=== PATIENT | female | born 1950 | race Caucasian/White ===

== ENCOUNTER → 2016-10-09 | Outpatient (CLI) | payer MEDICARE ==
[~2016-10-09] MED LIST: /ONDA4TA PO; ASPI32ECTA PO; ASPI81TA60 PO; ASPIRIN PO; CARVEDILOL; CARVEDILOL PO; CRES20TA PO; CRESTOR PO; ELIQ5TAB PO; FURO40TA2 PO; FUROSIMIDE PO; GLIM2TAB PO; GLIM4TAB PO; INSULANT SC; LANTUS INSULIN INJ; LISI-542 PO; LISIPOW PO; MAPA325T2 PO; NITR4TASL SL; NITRO STAT PO; OMEP40CA2 PO; ONDA4INJ48 IV; PLAVIX PO; SYNT125T PO; SYNTHROID PO; TYLE325T5 PO; VITA50003 PO
[2016-10-09 12:40] LABS: ALBUMIN 3.6 GM/DL (3.2-5.2); ANION GAP 10 MEQ/L (8-16); BLOOD UREA NITROGEN 20 MG/DL (7-18); CALCIUM LEVEL 9.6 MG/DL (8.8-10.2); CARBON DIOXIDE LEVEL 26 MEQ/L (21-32); CHLORIDE LEVEL 100 MEQ/L (98-107); CREATININE FOR GFR 0.78 MG/DL (0.55-1.02); GLOMERULAR FILTRATION RATE > 60.0 (>45); GLUCOSE, FASTING 274 MG/DL (80-110); PHOSPHORUS LEVEL 3.3 MG/DL (2.5-4.9); SODIUM LEVEL 136 MEQ/L (136-145)
[2016-10-09 12:48] LABS: POTASSIUM SERUM 5.2 MEQ/L (3.5-5.1)
== END | disposition home or self-care (01) ==
LOC: M LAB 11:08
PROVIDERS: ATTEND Internal Medicine Cardiovascular Disease
DX: I49.3 Ventricular premature depolarization (principal)

== ENCOUNTER → 2016-11-09 | Outpatient (REF) | payer MEDICARE ==
[2016-11-09 12:59] LABS: ALBUMIN 3.7 GM/DL (3.2-5.2); ALBUMIN/GLOBULIN RATIO 1.06 (1.00-1.93); BILIRUBIN,DIRECT 0.1 MG/DL (0.0-0.2); BILIRUBIN,TOTAL 0.6 MG/DL (0.2-1.0); TOTAL PROTEIN 7.2 GM/DL (6.4-8.2)
== END ==
LOC: M LABDRAWC 11:57
PROVIDERS: ATTEND Internal Medicine Cardiovascular Disease
DX: I49.3 Ventricular premature depolarization (principal); I25.10 Atherosclerotic heart disease of native coronary artery without angina pectoris

== ENCOUNTER → 2016-12-25 | Outpatient (REF) | payer MEDICARE | LOC: M SFHCCLAY 11:16 | PROVIDERS: ATTEND Family Medicine | DX: E11.9 Type 2 diabetes mellitus without complications (principal) | CPT/HCPCS: 83036; G0463 ==

== ENCOUNTER → 2017-06-28 | Outpatient (REF) | payer MEDICARE ==
[~2017-06-28] MED LIST changes: +AMMO12CR4 TOP; +ASPI325T24 PO; -ASPI32ECTA PO; +ASPI81CH PO; +ATOR80TA59 PO; +CEPH500C PO; +FLON1SPR; +INSULADS INJ; +MACR100C43 PO; +SYNT88TA2 PO; +TRAM50TA2 PO; +VITA1CAP40 PO; -VITA50003 PO
== END ==
LOC: M SFHCCLAY 11:07
PROVIDERS: ATTEND Family Medicine
DX: E11.65 Type 2 diabetes mellitus with hyperglycemia (principal); R30.0 Dysuria; E55.9 Vitamin D deficiency, unspecified
CPT/HCPCS: 81001; 82043; 82306; 83036; 87088; 87186; G0463

== ENCOUNTER 2017-07-05 14:35 | Inpatient (IN) | payer MEDICARE ==
[~2017-07-05] VITALS: Ht 154.9 cm; Wt 94.4 kg
[~2017-07-05 14:35] MED LIST changes: -AMMO12CR4 TOP; -ASPI81CH PO; -ATOR80TA59 PO; -CEPH500C PO; -FLON1SPR; -INSULADS INJ; -MACR100C43 PO; -SYNT88TA2 PO; -TRAM50TA2 PO
[2017-07-05] MEDS ORDERED: MACR100C43 PO ×2 (14:47→21:05)
[2017-07-05] MEDS ORDERED: PANTOPRAZOLE 40MG INJ (PROTONIX) (C9113) IV ONE (16:00)
[2017-07-05] MEDS ORDERED: NS 1,000 ML IV ONE (16:00)
--- NOTE | 2017-07-05 16:46 | REP ---
Clinical: Chest pain . Comparison: 02/24/2016 . Technique: PA and lateral. Findings: The mediastinum and cardiac silhouette are stable. Coronary stents unchanged. The lung rodriguez are clear and without acute consolidation, effusion, or pneumothorax. The skeletal structures are intact and normal. Impression: 1. No acute cardiopulmonary process. Signed by Jesu Guardado MD 07/05/2017 04:38 P
[2017-07-05 16:52] LABS: INR 0.98
[2017-07-05 17:01] LABS: ALBUMIN 3.6 GM/DL (3.2-5.2); ALT/SGPT 18 U/L (12-78); ANION GAP 8 MEQ/L (8-16); AST/SGOT 11 U/L (7-37); BILIRUBIN,DIRECT 0.3 MG/DL (0.0-0.2); BLOOD UREA NITROGEN 21 MG/DL (7-18); CALCIUM LEVEL 9.1 MG/DL (8.8-10.2); CARBON DIOXIDE LEVEL 30 MEQ/L (21-32); CHLORIDE LEVEL 92 MEQ/L (98-107); CREATININE FOR GFR 1.04 MG/DL (0.55-1.02); GLOMERULAR FILTRATION RATE 56.8 (>45); GLUCOSE, FASTING 273 MG/DL (80-110); POTASSIUM SERUM 3.9 MEQ/L (3.5-5.1); SODIUM LEVEL 130 MEQ/L (136-145)
[2017-07-05 17:07] LABS: ALBUMIN/GLOBULIN RATIO 0.97 (1.00-1.93); ALKALINE PHOSPHATASE 94 U/L (45-117); BILIRUBIN,TOTAL 0.9 MG/DL (0.2-1.0); TOTAL PROTEIN 7.3 GM/DL (6.4-8.2)
[2017-07-05 17:32] LABS: BASO # 0.1 10^3/uL (0.0-0.2); BASO % 0.6 % (0.0-1.0); EOS # 0.3 10^3/uL (0.0-0.50); EOS % 2.3 % (0.0-3.0); IMMATURE GRANULOCYTE % 0.5 % (0-0); LYMPH # 0.6 10^3/uL (1.5-4.5); LYMPH % 5.6 % (24.0-44.0); MEAN CORPUSCULAR HEMOGLOBIN 29.2 pg (27.0-33.0); MEAN CORPUSCULAR HGB CONC 34.2 g/dl (32.0-36.5); MEAN CORPUSCULAR VOLUME 85.5 fl (80.0-96.0); MONO # 0.8 10^3/uL (0.0-0.8); MONO % 7.4 % (0.0-5.0); NEUTROPHILS # 9.5 10^3/uL (1.8-7.7); NEUTROPHILS % 83.6 % (36.0-66.0); PLATELET COUNT, AUTOMATED 196 10^3/uL (150-450); WHITE BLOOD COUNT 11.4 10^3/uL (4.0-10.0)
--- NOTE | 2017-07-05 18:41 | ECGEPIP ---
Stationary ECG Study [facility] - ED Test Date: 2017-07-05 Pat Name: JEFF HERNANDEZ Department: Room: - Gender: F Preventive Medicine Specialist: wilder : [id number] Requested By: VINCENT ANDREW PA-C Order Number: [id number] Reading MD: Raymundo Thurman Measurements Intervals [place] Rate: 62 P: [place]: 0 QRS: 4 QRSD: 139 T: -1 QT: 459 QTc: 470 Interpretive Statements ATRIAL FIBRILLATION WITH ABERRANT CONDUCTION OR VENTRICULAR PREMATURE COMPLEXES RIGHT BUNDLE BRANCH BLOCK RHYTHM CHANGE COMPARED TO 02/25/16 Electronically Signed On 07-05-2017 18:40:42 EST by Raymundo Thurman
[2017-07-05] MEDS ORDERED: FUROSEMIDE injection 250 MG in D5W 225 ML IV SCH (21:00)
[2017-07-05] MEDS ORDERED: LEVEMIR (INSULIN DETEMIR) 1 UNITS/0.01ML SC SCH (21:00)
[2017-07-05] MEDS ORDERED: ATOR80TA59 PO (21:05)
[2017-07-05] MEDS ORDERED: NITR4TASL SL (21:05)
[2017-07-05] MEDS ORDERED: FLON1SPR (21:05)
[2017-07-05] MEDS ORDERED: ASPI81CH PO (21:05)
[2017-07-05] MEDS ORDERED: FURO40TA2 PO (21:05)
[2017-07-05] MEDS ORDERED: TRAM50TA2 PO (21:05)
[2017-07-05] MEDS ORDERED: GLIM4TAB PO (21:05)
[2017-07-05] MEDS ORDERED: INSULADS INJ (21:05)
[2017-07-05] MEDS ORDERED: LISI-542 PO (21:05)
[2017-07-05] MEDS ORDERED: AMMO12CR4 TOP (21:05)
[2017-07-05] MEDS ORDERED: SYNT88TA2 PO (21:05)
[2017-07-05] MEDS ORDERED: FUROSEMIDE 100 MG/10 ML VIAL (J1940) IV ONE (21:30)
[2017-07-05] MEDS ORDERED: ONDANSETRON 4MG/2ML VIAL (J2405) IV PRN (22:15)
[2017-07-05] MEDS ORDERED: FOSFOMYCIN TROMETHAMINE 3 GM POWDER PACKET (MONUROL) PO ONE (22:30)
[2017-07-05] MEDS ORDERED: DEXTROSE 50% 50 ML SYRINGE IV PRN (22:30)
[2017-07-05] MEDS ORDERED: GLUCOSE 4 GM CHEW TABLET PO PRN (22:30)
[2017-07-05] MEDS ORDERED: GLUCAGON FOR INJ 1 MG VIAL (J1610) SC PRN (22:30)
--- NOTE | 2017-07-05 23:02 | HPEPDOC ---
General Date of Admission 07/05/2017 Primary Care Physician: Brad Levine M.D. Chief Complaint The patient is a 66-year-old female admitted with a reason for visit of Weakness. Source: Patient Exam Limitations: No limitations Timing/Duration: Week(s) (past one week) Severity: Moderate Associated Symptoms: Loss of appetite, Nausea, Weakness History of Present Illness Ms. Bethea is a 66-year-old female with past medical history of coronary artery disease status post PCI in 2010, [place] 2011, diabetes, hypertension, hypothyroidism , diastolic heart failure with EF of 75% who presents to the emergency department complaining of one week's worth of generalized weakness associated with nausea and fatigue. The patient states that she has also lost about 12 pounds in the last 2 months unintentionally and that her low back chronic pain has been worse in the past 2 weeks. She has not had any associated shortness of breath, cough, dizziness, chest pain, racing heart, fever, chills, muscle aches , vomiting, diarrhea/constipation, pain with urination or blood in urine. She denies any recent trauma to account for exasperation of her chronic low back pain, she denies urinary or bowel incontinence and does not have any numbness of her inner thighs nor any other areas of her body which she experiences paralysis or numbness.. She was given medication for a UTI 1 week ago however she states that she does not have any pain with urination or blood in her urine but states that sometimes her urine does smell foul and she does have increase in urination but she has attributed that to her water pill which she takes daily. She does tell me that she doesn't take her medications routinely as she sometimes forgets. Patient sees a local locks tender and according to the patient they had told her it was okay to not be on a blood thinner, she has had a bad reaction Eliquis in the past that made her very exhausted and she states she will not take it again. According the patient she has tried Plavix and Coumadin which she has done okay with. The patient is not on any blood thinner currently. Home Medications Scheduled (Aspirin) 81 Mg Chw, 81 MG PO DAILY, (Reported) Ammonium Lactate (Ammonium Lactate) 12 % Cre, 1 DOSE TOP DAILY, (Reported) USES ON FEET Atorvastatin Calcium (Atorvastatin Calcium) 80 Mg Tab, 80 MG PO ASDIRECTED, ( Reported) TAKES MEDICATION EVERY OTHER NIGHT Furosemide (Furosemide) 40 Mg Tab, 40 MG PO DAILY, (Reported) Glimepiride (Glimepiride) 4 Mg Tab, 4 MG PO BID, (Reported) Insulin Glargine (Lantus) 100 Unit/Ml Inj, 36 UNIT INJ QHS, (Reported) Levothyroxine Sodium (Synthroid) 88 Mcg Tab, 88 MCG PO DAILY, (Reported) Lisinopril (Lisinopril) 5 Mg Tab, 5 MG PO DAILY, (Reported) Nitrofurantoin Monohydrate Mac (Macrobid) 100 Mg Cap, 100 MG PO BID, (Reported) Scheduled PRN Nitroglycerin (Nitrostat) 0.4 Mg Subl, 0.4 MG SL NITRO PRN for CHEST PAIN, ( Reported) Tramadol HCl (Tramadol HCl) 50 Mg Tab, 50 MG PO Q6H PRN for PAIN, (Reported) Allergies Coded Allergies: Cephalosporins (Unverified Allergy, Unknown, YEAST, 11/29/12) Clavulanic Acid (Unverified Allergy, Unknown, RASH, 11/29/12) Metformin (Unverified Allergy, Unknown, DECREASED AMBULATION, 11/29/12) Penicillins (Unverified Allergy, Unknown, RASH, 11/29/12) Penicillins Cross Reactors (Unverified Allergy, Unknown, RASH, 11/29/12) Quinolones (Unverified Allergy, Unknown, HIVES, 11/29/12) Sulfa Drugs (Unverified Allergy, Unknown, RASH, 11/29/12) Sulfa Drugs Cross Reactors (Unverified Allergy, Unknown, RASH, 11/29/12) Sulfamethoxazole (Unverified Allergy, Unknown, RASH, 11/29/12) Trimethoprim (Unverified Allergy, Unknown, RASH, 11/29/12) Past Medical History Medical History Coronary artery disease status post PCI 2010 [place] 2012 History of 4 cardiac stents Diabetes type 2 Hypertension Hypothyroidism Surgical History Right knee replacement Left hip arthroplasty 2012 Bilateral oophorectomy Family History Significant Family History: No pertinent family hx Social History * Smoker: Denies Alcohol: Denies Drugs: denies The patient is disabled and lives at home by herself. Review of Symptoms Constitutional: Reports: Malaise, Weakness, Fatigue, Weight Loss, Denies: Chills, Fever, Night Sweats Eyes: Denies: Pain, Vision change ENT: Reports: Head Aches Skin: Denies: Rash, Lesions Pulmonary: Denies: Dyspnea, Cough Cardiovascular: Reports: Edema (chronic bilateral lower extremity edema), Denies: Chest Pain, Palpitations, Orthopnea, Lt Headedness Gastrointestinal: Reports: Nausea, Denies: Vomiting, Abdominal Pain, Diarrhea, Constipation, Melena Genitourinary: Reports: Frequency, Denies: Dysuria, Incontinence, Hematuria, Retention Hematologic: Denies: Bruising Musculoskeletal: Reports: Back Pain Neurological: Reports: Weakness, Denies: Numbness, Change in speech, Confusion Physical Examination General Exam: Positive: Alert, Cooperative, Mild Distress ENT Exam: Positive: Atraumatic, Mucous membr. moist/pink, Pharynx Normal, Tongue Midline Chest Exam: Positive: Clear to auscultation, Normal air movement, Diminished, Negative: Rales, Rhonchi, Wheezing Heart Exam: Positive: Rate Normal, Irregular Rhythm, Normal S1, Normal S2, Negative: Gallops, Murmurs, Rubs (irregularly irregular, A. fib rate in 60s) Abdomen Exam: Positive: Normal bowel sounds, Soft, Negative: Tenderness, Hepatospenomegaly, Mass Extremity Exam: Positive: Edema (+1 bilateral lower extremity), Normal pulses, Negative: Clubbing, Cyanosis, Tenderness, Swelling Skin Exam: Positive: Nl turgor and temperature Neuro Exam: Positive: Normal Speech, Sensation Intact Psych Exam: Positive: Mental status NL Vital Signs Vital Signs Date Time Temp Pulse Resp B/P (MAP) Pulse Ox O2 Delivery O2 Flow Rate FiO2 07/05/17 22:14 58 103/59 (74) 96 07/05/17 19:29 98.4 20 07/05/17 14:36 Room Air Laboratory Data Labs 24H Laboratory Tests 2 07/05/17 16:06: Urine Appearance CLOUDYH, Urine Color ROBBIE, Urine pH 5.0, Urine Specific Philip 1.013, Urine Protein 1+H, Urine Glucose (UA) 3+H, Urine Ketones TRACEH, Urine Urobilinogen 2.0H, Urine Bilirubin NEGATIVE, Urine Leukocyte Esterase 2+H , Urine Blood 1+H, Urine Nitrite NEGATIVE, Urine WBC (Auto) 42H, Urine RBC (Auto ) 15H, Urine Hyaline Casts (Auto) 18, Urine Bacteria (Auto) 2+H, Urine Squamous Epithelial Cells 2, Urine Amorphous Sediment SMALLH, Urine Mucus (Auto) SMALL, Urine Sperm (Auto) 07/05/17 16:19: Immature Granulocyte % (Auto) 0.5H, White Blood Count 11.4H, Red Blood Count 4.62, Hemoglobin 13.5, Hematocrit 39.5, Mean Corpuscular Volume 85.5, Mean Corpuscular Hemoglobin 29.2, Mean Corpuscular Hemoglobin Concent 34.2, Red Cell Distribution Width 12.0, Platelet Count 196, Neutrophils (%) (Auto) 83.6H, Lymphocytes (%) (Auto) 5.6L, Monocytes (%) (Auto) 7.4H, Eosinophils (%) (Auto) 2.3, Basophils (%) (Auto) 0.6, Neutrophils # (Auto) 9.5H, Lymphocytes # (Auto) 0.6L, Monocytes # (Auto) 0.8, Eosinophils # (Auto) 0.3, Basophils # (Auto) 0.1, Immature Granulocyte # (Auto) 0.1H, Nucleated Red Blood Cells % (auto) 0.0, Erythrocyte Sedimentation Rate 60H, Prothrombin Time 13.1, Prothromb Time International Ratio 0.98, Activated Partial Thromboplast Time 26.6L, Anion Gap 8 , Glomerular Filtration Rate 56.8, Calcium Level 9.1, Aspartate Amino Transf ( AST/SGOT) 11, Alanine Aminotransferase (ALT/SGPT) 18, Alkaline Phosphatase 94, Total Bilirubin 0.9, Direct Bilirubin 0.3H, Total Creatine Kinase 45, Creatine Kinase MB 1.0, Creatine Kinase MB Relative Index 2.22, Troponin I < 0.02, C- Reactive Protein, Quantitative 13.10H, VP-Fup-Z-Type Natriuretic Peptide 1791H, Total Protein 7.3, Albumin 3.6, Albumin/Globulin Ratio 0.97L, Lipase 78, Thyroid Stimulating Hormone (TSH) 2.580, Free Thyroxine 1.40 CBC/BMP Laboratory Tests 07/05/17 16:19 Red Blood Count 4.62, Mean Corpuscular Volume 85.5, Mean Corpuscular Hemoglobin 29.2, Mean Corpuscular Hemoglobin Concent 34.2, Red Cell Distribution Width 12.0 , Neutrophils (%) (Auto) 83.6 H, Lymphocytes (%) (Auto) 5.6 L, Monocytes (%) ( Auto) 7.4 H, Eosinophils (%) (Auto) 2.3, Basophils (%) (Auto) 0.6, Neutrophils # (Auto) 9.5 H, Lymphocytes # (Auto) 0.6 L, Monocytes # (Auto) 0.8, Eosinophils # (Auto) 0.3, Basophils # (Auto) 0.1 Microbiology Microbiology 07/05/17 Blood Culture, Received Pending 07/05/17 Influenza Virus Type A Antigen - Final, Complete 07/05/17 Influenza Virus Type B Antigen - Final, Complete 07/05/17 Urine Culture, Received Pending Problems (1) Paroxysmal A-fib Status: Acute Response to Treatment: Stable Problem Text: Patient demonstrated atrial fibrillation in the emergency department with a rate in the 60s She is on home aspirin but admits she does not take it every day he cut she forgets Continue daily aspirin and consider cardiology consult in the morning in regards to adding on second anti-coagulation medication Patient's chads 2 vasc score is 5 which puts her at a 6.7% per year risk Continue home lisinopril and statin First set of cardiac troponins negative Repeat EKG in the morning Telemetry monitoring (2) Coronary artery disease Status: Chronic Response to Treatment: Stable Problem Text: Stable, EKG in emergency department showed A. fib but no concerning signs of active ischemia, continue daily aspirin and consider cardiology consult in the morning in regards to re-initiation of anticoagulation (3) Hypertension Status: Chronic Response to Treatment: Stable Problem Text: Blood pressure stable, continue with home medication (4) Heart failure Status: Chronic Response to Treatment: Stable Problem Text: Last EF 75 BNP 1791 Continue with home dose furosemide 40 (5) Diabetes Status: Chronic Response to Treatment: Stable Problem Text: converted home lantus to levemir 36 units qhs sliding scale coverage hga1c ordered (6) UTI (urinary tract infection) Status: Acute Response to Treatment: Stable Problem Text: Condition is not complaining of dysuria or blood in urine but does state that she urinates often UA in house positive for leuk esterase Patient states she took one dose of Macrobid that her primary care and given her one week ago Will give 1 dose fosfomycin (7) Hypothyroidism Status: Chronic Response to Treatment: Stable Problem Text: Continue with home dose of medication (8) DVT prophylaxis Status: Acute Response to Treatment: Stable Problem Text: SCD and teds Plan / VTE VTE Prophylaxis Ordered?: Yes GME ATTESTATION GME ATTESTATION My faculty preceptor for this patient encounter was physically present during the encounter and was fully available. ~All aspects of the patient interview, examination, medical decision making process, and medical care plan development were reviewed and approved by the faculty preceptor. The faculty preceptor is aware and concurs with the plan as stated in the body of this note and will attest to such by his/her co-signature. TAMMY ALFARO DO Jul 05, 2017 23:02
[2017-07-05 23:35] VITALS: BP 119/59
[2017-07-06] MEDS: HumaLOG INSULIN (NovoLOG) PER UNIT SC SCH ×5 (00:57→19:57)
[2017-07-06] MEDS ORDERED: SLF 3 ML SYR IV PRN (01:15)
[2017-07-06 04:00] VITALS: BP 106/59
[2017-07-06 05:35] LABS: BASO % 0.6 % (0.0-1.0); EOS # 0.4 10^3/uL (0.0-0.50); EOS % 5.9 % (0.0-3.0); IMMATURE GRANULOCYTE % 0.3 % (0-0); LYMPH # 0.7 10^3/uL (1.5-4.5); MEAN CORPUSCULAR HEMOGLOBIN 29.4 pg (27.0-33.0); MEAN CORPUSCULAR HGB CONC 34.1 g/dl (32.0-36.5); MEAN CORPUSCULAR VOLUME 86.1 fl (80.0-96.0); MONO # 0.7 10^3/uL (0.0-0.8); MONO % 10.7 % (0.0-5.0); NEUTROPHILS # 4.8 10^3/uL (1.8-7.7); NEUTROPHILS % 72.5 % (36.0-66.0); PLATELET COUNT, AUTOMATED 168 10^3/uL (150-450); WHITE BLOOD COUNT 6.6 10^3/uL (4.0-10.0)
[2017-07-06] MEDS: HEPARIN SOD (PORCINE) 5000 UNITS/ML VIAL SQ SCH ×3 (05:56→23:14)
[2017-07-06] MEDS: LEVOTHYROXINE 88MCG TABLET (0.088 MG) PO SCH (05:56)
[2017-07-06 05:57] LABS: ANION GAP 8 MEQ/L (8-16); BLOOD UREA NITROGEN 22 MG/DL (7-18); CALCIUM LEVEL 8.5 MG/DL (8.8-10.2); CARBON DIOXIDE LEVEL 27 MEQ/L (21-32); CHLORIDE LEVEL 99 MEQ/L (98-107); CREATININE FOR GFR 0.92 MG/DL (0.55-1.02); GLOMERULAR FILTRATION RATE > 60.0 (>45); GLUCOSE, FASTING 238 MG/DL (80-110); POTASSIUM SERUM 3.4 MEQ/L (3.5-5.1); SODIUM LEVEL 134 MEQ/L (136-145)
[2017-07-06] MEDS: SLF 3 ML SYR IV SCH ×3 (05:57→20:02)
[2017-07-06 08:00] VITALS: BP 117/63
[2017-07-06] MEDS: LACTIC ACID 12% LOTION 225 GM BTL TOP SCH (08:08)
[2017-07-06] MEDS: PANTOPRAZOLE 40MG TAB (PROTONIX) PO SCH (08:09)
[2017-07-06] MEDS: GLIMEPIRIDE 2 MG TAB PO SCH ×2 (08:09→16:53)
[2017-07-06] MEDS: FUROSEMIDE 40 MG/4 ML VIAL (J1940) IV SCH (08:09)
[2017-07-06] MEDS: ASPIRIN 81 MG CHEW TABLET PO SCH (08:10)
[2017-07-06] MEDS: ACETAMINOPHEN TAB 650MG DOSE (2X325MG) PO PRN (08:17)
[2017-07-06] MEDS ORDERED: NITROFURANTOIN (MACROBID) 100 MG CAP PO SCH (09:00)
[2017-07-06 09:03] VITALS: BP 108/68
[2017-07-06] MEDS: LISINOPRIL 5 MG TAB PO SCH (10:19)
--- NOTE | 2017-07-06 11:03 | IPNPDOC ---
Subjective Date Seen The patient was seen on 07/06/17. Subjective Chief Complaint/HPI The patient is a 66-year-old female admitted with a reason for visit of Acute Chf. Events since last encounter Pt without new concerns this morning. She reports that she lost her appetite and stopped her insulin in the last few days. She doesn't routinely check her FSBS and had not be at home. She thinks it has only been a few days since she stopped taking her insulin. General: Reports: Fatigue Constitutional: Reports: Weakness, Denies: Chills, Fever Pulmonary: Denies: Dyspnea, Cough Cardiovascular: Denies: Chest Pain, Palpitations Gastrointestinal: Denies: Nausea, Vomiting, Diarrhea Neurological: Reports: Weakness Psych: Reports: Mood Normal Objective Physical Examination General Exam: Positive: Alert, Cooperative, No Acute Distress Chest Exam: Positive: Clear to auscultation, Diminished, Negative: Rales, Rhonchi, Wheezing Heart Exam: Positive: Rate Normal, Irregular Rhythm, Normal S1, Normal S2, Negative: Gallops, Murmurs, Rubs Abdomen Exam: Positive: Normal bowel sounds, Soft, Negative: Tenderness, Hepatospenomegaly, Mass Extremity Exam: Positive: Edema (+1 bilateral lower extremity), Normal pulses, Negative: Clubbing, Cyanosis, Tenderness, Swelling Skin Exam: Positive: Nl turgor and temperature Neuro Exam: Positive: Normal Speech, Sensation Intact Psych Exam: Positive: Mental status NL Assessment /Plan Problems (1) Paroxysmal A-fib Status: Acute Response to Treatment: Stable Problem Text: 07/06 - EKG this morning inf lead ST depression, STAT CIP, Trop ordered, her rate remains controlled, she remains in A Fib. First set of CIP, trop Neg. JFW: TM shows NSR. Trops are flat. Echo pending Pt followed by [facility], bhaskar Coyne last month 07/05 Patient demonstrated atrial fibrillation in the emergency department with a rate in the 60s She is on home aspirin but admits she does not take it every day he cut she forgets Continue daily aspirin and consider cardiology consult in the morning in regards to adding on second anti-coagulation medication Patient's chads 2 vasc score is 5 which puts her at a 6.7% per year risk Continue home lisinopril and statin First set of cardiac troponins negative Repeat EKG in the morning Telemetry monitoring (2) Coronary artery disease Status: Chronic Response to Treatment: Stable Problem Text: 07/06 asymptomatic, see above. 07/05 Stable, EKG in emergency department showed A. fib but no concerning signs of active ischemia, continue daily aspirin and consider cardiology consult in the morning in regards to re-initiation of anticoagulation (3) Diabetes Status: Chronic Response to Treatment: Uncontrolled Discussed With: Nurse, Patient Problem Specific Plan: Monitor Clinically, Repeat Labs Problem Text: 07/06 Increased Levemir to 44 units today, her A1c 12% on admission, talked with nursing and pt about DM2 education. This is likely the culprit of her symptoms. She had elevated sugars, stopped eating bc she was feeling more sick after eating, and then began to feel worse and with weakness, she thought here FSBS would go down when she stopped eating. 07/05 converted home lantus to levemir 36 units qhs sliding scale coverage hga1c ordered (4) Hypertension Status: Chronic Response to Treatment: Stable Problem Text: Blood pressure stable, continue with home medication (5) Heart failure Status: Chronic Response to Treatment: Stable Problem Text: Last EF 75 BNP 1791 Continue with home dose furosemide 40 JFW 07/06: reviewed [facility] record 05/24/17, last EF 45% cath 05/08 at [facility]; will get updated echo (6) UTI (urinary tract infection) Status: Acute Response to Treatment: Stable Problem Text: Condition is not complaining of dysuria or blood in urine but does state that she urinates often UA in house positive for leuk esterase Patient states she took one dose of Macrobid that her primary care and given her one week ago Will give 1 dose fosfomycin (7) Hypothyroidism Status: Chronic Response to Treatment: Stable Problem Text: Continue with home dose of medication (8) DVT prophylaxis Status: Acute Response to Treatment: Stable Problem Text: SCD and teds Plan/VTE VTE Prophylaxis Ordered?: Yes VS, I&O, 24H, Fishbone Vital Signs/I&O Vital Signs Date Time Temp Pulse Resp B/P (MAP) Pulse Ox O2 Delivery O2 Flow Rate FiO2 07/06/17 10:19 108/68 07/06/17 08:00 99.5 55 20 96 Room Air I&O- Last 24 Hours up to 6 AM 07/07/17 06:00 Intake Total 180 ml Output Total 150 ml Balance 30 ml Laboratory Data 24H LABS Laboratory Tests 2 07/05/17 16:06: Urine Appearance CLOUDYH, Urine Color ROBBIE, Urine pH 5.0, Urine Specific [place] 1.013, Urine Protein 1+H, Urine Glucose (UA) 3+H, Urine Ketones TRACEH, Urine Urobilinogen 2.0H, Urine Bilirubin NEGATIVE, Urine Leukocyte Esterase 2+H , Urine Blood 1+H, Urine Nitrite NEGATIVE, Urine WBC (Auto) 42H, Urine RBC (Auto ) 15H, Urine Hyaline Casts (Auto) 18, Urine Bacteria (Auto) 2+H, Urine Squamous Epithelial Cells 2, Urine Amorphous Sediment SMALLH, Urine Mucus (Auto) SMALL, Urine Sperm (Auto) 07/05/17 16:19: Immature Granulocyte % (Auto) 0.5H, White Blood Count 11.4H, Red Blood Count 4.62, Hemoglobin 13.5, Hematocrit 39.5, Mean Corpuscular Volume 85.5, Mean Corpuscular Hemoglobin 29.2, Mean Corpuscular Hemoglobin Concent 34.2, Red Cell Distribution Width 12.0, Platelet Count 196, Neutrophils (%) (Auto) 83.6H, Lymphocytes (%) (Auto) 5.6L, Monocytes (%) (Auto) 7.4H, Eosinophils (%) (Auto) 2.3, Basophils (%) (Auto) 0.6, Neutrophils # (Auto) 9.5H, Lymphocytes # (Auto) 0.6L, Monocytes # (Auto) 0.8, Eosinophils # (Auto) 0.3, Basophils # (Auto) 0.1, Immature Granulocyte # (Auto) 0.1H, Nucleated Red Blood Cells % (auto) 0.0, Erythrocyte Sedimentation Rate 60H, Prothrombin Time 13.1, Prothromb Time International Ratio 0.98, Activated Partial Thromboplast Time 26.6L, Anion Gap 8 , Glomerular Filtration Rate 56.8, Calcium Level 9.1, Aspartate Amino Transf ( AST/SGOT) 11, Alanine Aminotransferase (ALT/SGPT) 18, Alkaline Phosphatase 94, Total Bilirubin 0.9, Direct Bilirubin 0.3H, Total Creatine Kinase 45, Creatine Kinase MB 1.0, Creatine Kinase MB Relative Index 2.22, Troponin I < 0.02, C- Reactive Protein, Quantitative 13.10H, QB-Rvy-G-Type Natriuretic Peptide 1791H, Total Protein 7.3, Albumin 3.6, Albumin/Globulin Ratio 0.97L, Lipase 78, Thyroid Stimulating Hormone (TSH) 2.580, Free Thyroxine 1.40 07/06/17 00:48: Bedside Glucose (Misc Panel) 362H 07/06/17 05:08: Immature Granulocyte % (Auto) 0.3H, White Blood Count 6.6, Red Blood Count 3.95L , Hemoglobin 11.6L, Hematocrit 34.0L, Mean Corpuscular Volume 86.1, Mean Corpuscular Hemoglobin 29.4, Mean Corpuscular Hemoglobin Concent 34.1, Red Cell Distribution Width 12.0, Platelet Count 168, Neutrophils (%) (Auto) 72.5H, Lymphocytes (%) (Auto) 10.0L, Monocytes (%) (Auto) 10.7H, Eosinophils (%) (Auto ) 5.9H, Basophils (%) (Auto) 0.6, Neutrophils # (Auto) 4.8, Lymphocytes # (Auto ) 0.7L, Monocytes # (Auto) 0.7, Eosinophils # (Auto) 0.4, Basophils # (Auto) 0.0 , Immature Granulocyte # (Auto) 0.0, Nucleated Red Blood Cells % (auto) 0.0, Anion Gap 8, Glomerular Filtration Rate > 60.0, Calcium Level 8.5L, Estimated Mean Plasma Glucose 298H, Hemoglobin A1c 12.0, Blood Urea Nitrogen 22H, Creatinine 0.92, Sodium Level 134L, Potassium Level 3.4L, Chloride Level 99, Carbon Dioxide Level 27 CBC/BMP Laboratory Tests 07/05/17 16:19 Red Blood Count 4.62, Mean Corpuscular Volume 85.5, Mean Corpuscular Hemoglobin 29.2, Mean Corpuscular Hemoglobin Concent 34.2, Red Cell Distribution Width 12.0 , Neutrophils (%) (Auto) 83.6 H, Lymphocytes (%) (Auto) 5.6 L, Monocytes (%) ( Auto) 7.4 H, Eosinophils (%) (Auto) 2.3, Basophils (%) (Auto) 0.6, Neutrophils # (Auto) 9.5 H, Lymphocytes # (Auto) 0.6 L, Monocytes # (Auto) 0.8, Eosinophils # (Auto) 0.3, Basophils # (Auto) 0.1 07/06/17 05:08 Red Blood Count 3.95 L, Mean Corpuscular Volume 86.1, Mean Corpuscular Hemoglobin 29.4, Mean Corpuscular Hemoglobin Concent 34.1, Red Cell Distribution Width 12.0, Neutrophils (%) (Auto) 72.5 H, Lymphocytes (%) (Auto) 10.0 L, Monocytes (%) (Auto) 10.7 H, Eosinophils (%) (Auto) 5.9 H, Basophils (% ) (Auto) 0.6, Neutrophils # (Auto) 4.8, Lymphocytes # (Auto) 0.7 L, Monocytes # (Auto) 0.7, Eosinophils # (Auto) 0.4, Basophils # (Auto) 0.0, Calcium Level 8.5 L Microbiology Microbiology 07/05/17 Blood Culture - Preliminary, Resulted 07/05/17 Influenza Virus Type A Antigen - Final, Complete 07/05/17 Influenza Virus Type B Antigen - Final, Complete 07/05/17 Urine Culture, Received Pending JENN MAC PA-C Jul 06, 2017 11:03 Arias Schafer MD Jul 06, 2017 15:16
[2017-07-06] MEDS: traMADol 50 MG TAB PO PRN (12:21)
[2017-07-06 12:30] VITALS: BP 106/64
[2017-07-06 15:30] VITALS: BP 129/75
[2017-07-06] MEDS ORDERED: POTASSIUM CHLORIDE 10 MEQ SR TABLET PO ONE (16:15)
[2017-07-06] MEDS: LEVEMIR (INSULIN DETEMIR) 1 UNITS/0.01ML SC SCH (19:57)
[2017-07-06] MEDS: ATORVASTATIN 20 MG TAB PO SCH (19:58)
[2017-07-06 20:00] VITALS: BP 118/58
[2017-07-07] VITALS (7 sets, daily range): BP systolic 112–136; BP diastolic 56–67
[2017-07-07 06:00] LABS: BASO # 0.1 10^3/uL (0.0-0.2); BASO % 1.1 % (0.0-1.0); EOS # 0.4 10^3/uL (0.0-0.50); EOS % 8.2 % (0.0-3.0); IMMATURE GRANULOCYTE % 0.4 % (0-0); LYMPH # 1.3 10^3/uL (1.5-4.5); LYMPH % 27.1 % (24.0-44.0); MEAN CORPUSCULAR HEMOGLOBIN 29.6 pg (27.0-33.0); MEAN CORPUSCULAR HGB CONC 34.2 g/dl (32.0-36.5); MEAN CORPUSCULAR VOLUME 86.7 fl (80.0-96.0); MONO # 0.8 10^3/uL (0.0-0.8); MONO % 16.9 % (0.0-5.0); NEUTROPHILS # 2.1 10^3/uL (1.8-7.7); NEUTROPHILS % 46.3 % (36.0-66.0); PLATELET COUNT, AUTOMATED 182 10^3/uL (150-450); WHITE BLOOD COUNT 4.6 10^3/uL (4.0-10.0)
[2017-07-07] MEDS: LEVOTHYROXINE 88MCG TABLET (0.088 MG) PO SCH (06:04)
[2017-07-07] MEDS: SLF 3 ML SYR IV SCH ×3 (06:04→21:25)
[2017-07-07] MEDS: HEPARIN SOD (PORCINE) 5000 UNITS/ML VIAL SQ SCH ×3 (06:04→21:23)
[2017-07-07 06:19] LABS: ANION GAP 7 MEQ/L (8-16); BLOOD UREA NITROGEN 26 MG/DL (7-18); CALCIUM LEVEL 8.6 MG/DL (8.8-10.2); CARBON DIOXIDE LEVEL 28 MEQ/L (21-32); CHLORIDE LEVEL 103 MEQ/L (98-107); CREATININE FOR GFR 0.86 MG/DL (0.55-1.02); GLOMERULAR FILTRATION RATE > 60.0 (>45); GLUCOSE, FASTING 118 MG/DL (80-110); POTASSIUM SERUM 3.5 MEQ/L (3.5-5.1); SODIUM LEVEL 138 MEQ/L (136-145)
[2017-07-07] MEDS: LACTIC ACID 12% LOTION 225 GM BTL TOP SCH (08:22)
[2017-07-07] MEDS: GLIMEPIRIDE 2 MG TAB PO SCH ×2 (08:23→18:30)
[2017-07-07] MEDS: HumaLOG INSULIN (NovoLOG) PER UNIT SC SCH ×4 (08:23→21:00)
[2017-07-07] MEDS: ASPIRIN 81 MG CHEW TABLET PO SCH (08:24)
[2017-07-07] MEDS: LISINOPRIL 5 MG TAB PO SCH (08:24)
[2017-07-07] MEDS: PANTOPRAZOLE 40MG TAB (PROTONIX) PO SCH (08:25)
[2017-07-07] MEDS: FUROSEMIDE 40 MG/4 ML VIAL (J1940) IV SCH (08:25)
[2017-07-07 10:20] LABS: MAGNESIUM LEVEL 2.1 MG/DL (1.8-2.4)
--- NOTE | 2017-07-07 12:00 | IPNPDOC ---
Subjective Date Seen The patient was seen on 07/07/17. Subjective Chief Complaint/HPI The patient is a 66-year-old female admitted with a reason for visit of Acute Chf. Events since last encounter No complaints other than slight nausea/feeling full Constitutional: Denies: Chills, Fever Pulmonary: Denies: Dyspnea, Cough Cardiovascular: Denies: Chest Pain, Palpitations Gastrointestinal: Denies: Nausea, Vomiting, Abdominal Pain, Diarrhea, Constipation Objective Physical Examination General Exam: Positive: Alert, No Acute Distress Chest Exam: Positive: Clear to auscultation, Diminished, Negative: Rales, Rhonchi, Wheezing Heart Exam: Positive: Rate Normal, Irregular Rhythm, Normal S1, Normal S2, Negative: Gallops, Murmurs, Rubs Telemetry: Positive: Other Telemetry: (Atrial fibrillation with rate in 50s. 3 beats V-tach assymptomatic) Abdomen Exam: Positive: Normal bowel sounds, Soft, Negative: Tenderness, Hepatospenomegaly, Mass Extremity Exam: Negative: Edema Psych Exam: Positive: Mental status NL Assessment /Plan Problems (1) Paroxysmal A-fib Status: Acute Response to Treatment: Stable Problem Text: 07/07 - Tele with atrial fibrillation - rate in 50s. Few beat V- tach. K+ = 3.5 today - I will give more K+ Mag ok Patient states she was told by cardiology in past that she does not need anticoag but I will call them to see her for recommendations Cont ASA for now Echo pending Rate slow without meds. 07/06 - EKG this morning inf lead ST depression, STAT CIP, Trop ordered, her rate remains controlled, she remains in A Fib. First set of CIP, trop Neg. JFW: TM shows NSR. Trops are flat. Echo pending Pt followed by bhaskar GIBBS Dr last month 07/05 Patient demonstrated atrial fibrillation in the emergency department with a rate in the 60s She is on home aspirin but admits she does not take it every day he cut she forgets Continue daily aspirin and consider cardiology consult in the morning in regards to adding on second anti-coagulation medication Patient's chads 2 vasc score is 5 which puts her at a 6.7% per year risk Continue home lisinopril and statin First set of cardiac troponins negative Repeat EKG in the morning Telemetry monitoring (2) Coronary artery disease Status: Chronic Response to Treatment: Stable Problem Text: 07/06 asymptomatic, see above. 07/05 Stable, EKG in emergency department showed A. fib but no concerning signs of active ischemia, continue daily aspirin and consider cardiology consult in the morning in regards to re-initiation of anticoagulation (3) Heart failure Status: Chronic Response to Treatment: Stable Problem Text: Continue Lasix 40 mg daily - switch to po JFW 07/06: reviewed [facility] record 05/24/17, last EF 45% cath 05/08 at [facility]; will get updated echo (4) Diabetes Status: Chronic Response to Treatment: Uncontrolled Discussed With: Nurse, Patient Problem Specific Plan: Monitor Clinically, Repeat Labs Problem Text: 07/07 - continue Levemir 44 units daily Also on Amaryl but may want to work with Insulin alone considering CV risk of Sulfonylurea. 07/06 Increased Levemir to 44 units today, her A1c 12% on admission, talked with nursing and pt about DM2 education. This is likely the culprit of her symptoms. She had elevated sugars, stopped eating bc she was feeling more sick after eating, and then began to feel worse and with weakness, she thought here FSBS would go down when she stopped eating. 07/05 converted home lantus to levemir 36 units qhs sliding scale coverage hga1c ordered (5) Hypertension Status: Chronic Response to Treatment: Stable Problem Text: Blood pressure stable, continue with home medication (6) UTI (urinary tract infection) Status: Acute Response to Treatment: Stable Problem Text: s/p nitrofurantoin on admission B/C x 1 - gram neg rods - start Tigecycline due to E.Coli UTI prior to admission 06/28 U/C JFW: I trieds to rx tigecycline but requires ID stamp of approval and ID is unavailable today. She has multiple drug allergies, and limited sensitivies based on 06/28 U/C. Summarized decision in my dictated note (7) Hypothyroidism Status: Chronic Response to Treatment: Stable Problem Text: Continue with home dose of medication (8) DVT prophylaxis Status: Acute Response to Treatment: Stable Problem Text: SCD and teds Plan/VTE VTE Prophylaxis Ordered?: Yes VS, I&O, 24H, Fishbone Vital Signs/I&O Vital Signs Date Time Temp Pulse Resp B/P (MAP) Pulse Ox O2 Delivery O2 Flow Rate FiO2 07/07/17 08:24 112/60 11/15/17 08:00 98.6 66 20 98 Room Air I&O- Last 24 Hours up to 6 AM 07/08/17 06:00 Intake Total 240 ml Output Total 600 ml Balance -360 ml Laboratory Data 24H LABS Laboratory Tests 2 07/06/17 17:04: Bedside Glucose (Misc Panel) 139H 07/06/17 19:55: Bedside Glucose (Misc Panel) 176H 07/07/17 05:37: Immature Granulocyte % (Auto) 0.4H, White Blood Count 4.6, Red Blood Count 3.98L , Hemoglobin 11.8L, Hematocrit 34.5L, Mean Corpuscular Volume 86.7, Mean Corpuscular Hemoglobin 29.6, Mean Corpuscular Hemoglobin Concent 34.2, Red Cell Distribution Width 12.0, Platelet Count 182, Neutrophils (%) (Auto) 46.3, Lymphocytes (%) (Auto) 27.1, Monocytes (%) (Auto) 16.9H, Eosinophils (%) (Auto) 8.2H, Basophils (%) (Auto) 1.1H, Neutrophils # (Auto) 2.1, Lymphocytes # (Auto) 1.3L, Monocytes # (Auto) 0.8, Eosinophils # (Auto) 0.4, Basophils # (Auto) 0.1, Immature Granulocyte # (Auto) 0.0, Nucleated Red Blood Cells % (auto) 0.0, Anion Gap 7L, Glomerular Filtration Rate > 60.0, Blood Urea Nitrogen 26H, Creatinine 0.86, Sodium Level 138, Potassium Level 3.5, Chloride Level 103, Carbon Dioxide Level 28, Calcium Level 8.6L, Magnesium Level 2.1 CBC/BMP Laboratory Tests 07/07/17 05:37 Red Blood Count 3.98 L, Mean Corpuscular Volume 86.7, Mean Corpuscular Hemoglobin 29.6, Mean Corpuscular Hemoglobin Concent 34.2, Red Cell Distribution Width 12.0, Neutrophils (%) (Auto) 46.3, Lymphocytes (%) (Auto) 27.1, Monocytes (%) (Auto) 16.9 H, Eosinophils (%) (Auto) 8.2 H, Basophils (%) ( Auto) 1.1 H, Neutrophils # (Auto) 2.1, Lymphocytes # (Auto) 1.3 L, Monocytes # ( Auto) 0.8, Eosinophils # (Auto) 0.4, Basophils # (Auto) 0.1, Calcium Level 8.6 L Microbiology Microbiology 07/05/17 Blood Culture - Preliminary, Resulted 07/05/17 Influenza Virus Type A Antigen - Final, Complete 07/05/17 Influenza Virus Type B Antigen - Final, Complete 07/05/17 Urine Culture - Final, Complete ARSEN SCHAFER PA-C Jul 07, 2017 12:00 Arias Schafer MD Jul 07, 2017 15:25
[2017-07-07] MEDS: POTASSIUM CHLORIDE 10 MEQ SR TABLET PO SCH ×2 (12:55→15:47)
--- NOTE | 2017-07-07 15:34 | IPN ---
DATE: 07/07/2017 This note supplements the previous note from today by Aminata Schafer. Case has been discussed with Dr. Nevarez, there is frankly some confusion about whether this patient has a past history of atrial fibrillation. I have reviewed the [facility] notes, particularly a note from 09/2016, where Dr. Coyne states the previously diagnosed atrial fibrillation was in error and that the EKGs suggesting atrial fibrillation were actually showing atrial tachycardia and not atrial fibrillation. I spoke to Dr. Nevarez about this. He states that their other records indicate the patient has had atrial fibrillation in the past. In any case, is in atrial fibrillation now and with a [id number] score of 5 would be appropriate to take an anticoagulant. I discussed this with the patient and she adamantly declines taking an anticoagulant for her atrial fibrillation. She is aware of the increased risk of thrombolic stroke, is more concerned about the risk of bleeding taking this together with an 81 mg aspirin and feels that she wants to forego anticoagulation until she can be seen by [facility] at their office. This discussion was witnessed by her brother, they are both aware of the risk associated with this decision. Patient also has a blood culture positive for gram-negative rods. She had an Escherichia (E) coli urinary tract infection (UTI) 06/28/2017. She was started on Macrobid 100 mg twice a day on 07/02/2017. I am not sure whether she filled that prescription, in any case, now with the breakthrough bacteremia she needs to be on a systemic antibiotic. She has multiple drug allergies including what is listed as CEPHALOSPORINS, PENICILLINS, and QUINOLONES. She indicates to me that she can take Cipro without difficulty (E. coli in her urine was resistant to quinolones) and that she has taken cephalosporins, including Keflex, with only a yeast infection and not an allergic rash or anaphylaxis. I was going to put her on tigecycline as noted in Aminata Schafer's note, but apparently providers are prohibited from prescribing tigecycline at [facility] without an infectious disease consultation and infectious disease industry consultant is unavailable today. This is unfortunate as I ordered tigecycline this morning and now I see it is not listed under her active medications. Therefore, I will give Ancef 1 gram every 8 hours and hope she does not have a reaction to it.
[2017-07-07] MEDS: CEFAZOLIN SOD 1 GM in APPROPRIATE DILUENT 1 EA IV SCH (16:28)
[2017-07-07] MEDS: LEVEMIR (INSULIN DETEMIR) 1 UNITS/0.01ML SC SCH (21:24)
[2017-07-08] VITALS (7 sets, daily range): BP systolic 98–147; BP diastolic 54–67
[2017-07-08] MEDS: CEFAZOLIN SOD 1 GM in APPROPRIATE DILUENT 1 EA IV SCH ×2 (00:26→08:07)
--- NOTE | 2017-07-08 00:28 | ECGEPIP ---
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
--- NOTE | 2017-07-08 00:46 | ECGEPIP ---
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
[2017-07-08 05:16] LABS: BASO # 0.1 10^3/uL (0.0-0.2); EOS # 0.4 10^3/uL (0.0-0.50); IMMATURE GRANULOCYTE % 0.4 % (0-0); LYMPH # 1.9 10^3/uL (1.5-4.5); LYMPH % 37.5 % (24.0-44.0); MEAN CORPUSCULAR HEMOGLOBIN 29.6 pg (27.0-33.0); MEAN CORPUSCULAR HGB CONC 33.4 g/dl (32.0-36.5); MEAN CORPUSCULAR VOLUME 88.5 fl (80.0-96.0); MONO # 0.6 10^3/uL (0.0-0.8); MONO % 11.9 % (0.0-5.0); NEUTROPHILS # 2.1 10^3/uL (1.8-7.7); NEUTROPHILS % 41.2 % (36.0-66.0); PLATELET COUNT, AUTOMATED 203 10^3/uL (150-450); RED CELL DISTRIBUTION WIDTH 12.5 % (11.5-14.5); WHITE BLOOD COUNT 5.1 10^3/uL (4.0-10.0)
[2017-07-08 05:46] LABS: ANION GAP 4 MEQ/L (8-16); BLOOD UREA NITROGEN 29 MG/DL (7-18); CALCIUM LEVEL 8.5 MG/DL (8.8-10.2); CARBON DIOXIDE LEVEL 28 MEQ/L (21-32); CHLORIDE LEVEL 106 MEQ/L (98-107); CREATININE FOR GFR 0.91 MG/DL (0.55-1.02); GLOMERULAR FILTRATION RATE > 60.0 (>45); GLUCOSE, FASTING 147 MG/DL (80-110); POTASSIUM SERUM 4.3 MEQ/L (3.5-5.1); SODIUM LEVEL 138 MEQ/L (136-145)
[2017-07-08] MEDS: LEVOTHYROXINE 88MCG TABLET (0.088 MG) PO SCH (05:56)
[2017-07-08] MEDS: HEPARIN SOD (PORCINE) 5000 UNITS/ML VIAL SQ SCH ×3 (05:57→21:21)
[2017-07-08] MEDS: SLF 3 ML SYR IV SCH ×3 (05:57→21:21)
[2017-07-08] MEDS: GLIMEPIRIDE 2 MG TAB PO SCH ×2 (08:06→18:35)
[2017-07-08] MEDS: HumaLOG INSULIN (NovoLOG) PER UNIT SC SCH ×4 (08:07→21:00)
[2017-07-08] MEDS: LISINOPRIL 5 MG TAB PO SCH (09:56)
[2017-07-08] MEDS: FUROSEMIDE 40 MG TAB PO SCH (09:57)
[2017-07-08] MEDS: PANTOPRAZOLE 40MG TAB (PROTONIX) PO SCH (09:57)
[2017-07-08] MEDS: ASPIRIN 81 MG CHEW TABLET PO SCH (09:57)
[2017-07-08] MEDS: LACTIC ACID 12% LOTION 225 GM BTL TOP SCH (09:58)
[2017-07-08] MEDS: NYSTATIN 100,000 UNITS/GM TOPICAL PWD 15 GM TOP SCH ×2 (11:08→21:00)
[2017-07-08] MEDS ORDERED: DOXYCYCLINE HYCLATE 100 MG in D5W MINI-BAG PLUS 100 ML IV SCH (16:00)
[2017-07-08] MEDS ORDERED: GASTROGRAFIN SOLUTION 30ML PO ONE (16:15)
--- NOTE | 2017-07-08 16:44 | IPNPDOC ---
Subjective Date Seen The patient was seen on 07/08/17. Subjective Chief Complaint/HPI The patient is a 66-year-old female admitted with a reason for visit of Acute Chf. Events since last encounter She reports that she is feeling a little bit stressed but otherwise well. She does not have any acute concerns today. Constitutional: Denies: Chills, Fever Pulmonary: Denies: Dyspnea Cardiovascular: Denies: Chest Pain Gastrointestinal: Denies: Nausea, Vomiting, Abdominal Pain Genitourinary: Denies: Dysuria, Frequency Objective Physical Examination General Exam: Positive: Alert, No Acute Distress Chest Exam: Positive: Clear to auscultation, Negative: Rales, Rhonchi, Wheezing Heart Exam: Positive: Rate Normal, Irregular Rhythm, Normal S1, Normal S2, Negative: Gallops, Murmurs, Rubs Abdomen Exam: Positive: Normal bowel sounds, Soft, Negative: Tenderness, Hepatospenomegaly, Mass Extremity Exam: Negative: Edema Assessment /Plan Problems (1) Paroxysmal A-fib Status: Acute Response to Treatment: Stable Problem Text: 07/08: Heart rate still irregular, echocardiogram pending 07/07 - Tele with atrial fibrillation - rate in 50s. Few beat V-tach. K+ = 3.5 today - I will give more K+ Mag ok Patient states she was told by cardiology in past that she does not need anticoag but I will call them to see her for recommendations Cont ASA for now Echo pending Rate slow without meds. 07/06 - EKG this morning inf lead ST depression, STAT CIP, Trop ordered, her rate remains controlled, she remains in A Fib. First set of CIP, trop Neg. JFW: TM shows NSR. Trops are flat. Echo pending Pt followed by BERNIE, bhaskar Coyne last month 07/05 Patient demonstrated atrial fibrillation in the emergency department with a rate in the 60s She is on home aspirin but admits she does not take it every day he cut she forgets Continue daily aspirin and consider cardiology consult in the morning in regards to adding on second anti-coagulation medication Patient's chads 2 vasc score is 5 which puts her at a 6.7% per year risk Continue home lisinopril and statin First set of cardiac troponins negative Repeat EKG in the morning Telemetry monitoring (2) Bacterial infection due to Clostridium perfringens Problem Text: 07/08: Patient's blood culture grew Clostridium perfringens. Antibiotic was changed from cefazolin to doxycycline. Infectious disease was consulted for further evaluation. Order placed for CT of abdomen and pelvis for further evaluation due to concern for colonic pathology. (3) Coronary artery disease Status: Chronic Response to Treatment: Stable Problem Text: 07/06 asymptomatic, see above. 07/05 Stable, EKG in emergency department showed A. fib but no concerning signs of active ischemia, continue daily aspirin and consider cardiology consult in the morning in regards to re-initiation of anticoagulation (4) Heart failure Status: Chronic Response to Treatment: Stable Problem Text: Continue Lasix 40 mg daily - switch to po JFW 07/06: reviewed [facility] record 05/24/17, last EF 45% cath 05/08 at [facility]; will get updated echo (5) Diabetes Status: Chronic Response to Treatment: Uncontrolled Discussed With: Nurse, Patient Problem Specific Plan: Monitor Clinically, Repeat Labs Problem Text: 07/07 - continue Levemir 44 units daily Also on Amaryl but may want to work with Insulin alone considering CV risk of Sulfonylurea. 07/06 Increased Levemir to 44 units today, her A1c 12% on admission, talked with nursing and pt about DM2 education. This is likely the culprit of her symptoms. She had elevated sugars, stopped eating bc she was feeling more sick after eating, and then began to feel worse and with weakness, she thought here FSBS would go down when she stopped eating. 07/05 converted home lantus to levemir 36 units qhs sliding scale coverage hga1c ordered (6) Hypertension Status: Chronic Response to Treatment: Stable Problem Text: Blood pressure stable, continue with home medication (7) UTI (urinary tract infection) Status: Acute Response to Treatment: Stable Problem Text: 07/08: Patient states that she took Macrobid all weekend prior to hospitalization. Blood culture grew Clostridium perfringens (see above) s/p nitrofurantoin on admission B/C x 1 - gram neg rods - start Tigecycline due to E.Coli UTI prior to admission 06/28 U/C JFW: I trieds to rx tigecycline but requires ID stamp of approval and ID is unavailable today. She has multiple drug allergies, and limited sensitivies based on 06/28 U/C. Summarized decision in my dictated note (8) Hypothyroidism Status: Chronic Response to Treatment: Stable Problem Text: Continue with home dose of medication (9) DVT prophylaxis Status: Acute Response to Treatment: Stable Problem Text: SCD and teds Plan/VTE VTE Prophylaxis Ordered?: Yes VS, I&O, 24H, Fishbone Vital Signs/I&O Vital Signs Date Time Temp Pulse Resp B/P (MAP) Pulse Ox O2 Delivery O2 Flow Rate FiO2 07/08/17 16:00 98.1 70 16 147/67 (93) 93 Room Air I&O- Last 24 Hours up to 6 AM 07/09/17 06:00 Intake Total 310 ml Output Total 300 ml Balance 10 ml Laboratory Data 24H LABS Laboratory Tests 2 07/07/17 17:12: Bedside Glucose (Misc Panel) 241H 07/07/17 21:09: Bedside Glucose (Misc Panel) 205H 07/08/17 04:49: Immature Granulocyte % (Auto) 0.4H, White Blood Count 5.1, Red Blood Count 3.82L , Hemoglobin 11.3L, Hematocrit 33.8L, Mean Corpuscular Volume 88.5, Mean Corpuscular Hemoglobin 29.6, Mean Corpuscular Hemoglobin Concent 33.4, Red Cell Distribution Width 12.5, Platelet Count 203, Neutrophils (%) (Auto) 41.2, Lymphocytes (%) (Auto) 37.5, Monocytes (%) (Auto) 11.9H, Eosinophils (%) (Auto) 8.0H, Basophils (%) (Auto) 1.0, Neutrophils # (Auto) 2.1, Lymphocytes # (Auto) 1.9, Monocytes # (Auto) 0.6, Eosinophils # (Auto) 0.4, Basophils # (Auto) 0.1, Immature Granulocyte # (Auto) 0.0, Nucleated Red Blood Cells % (auto) 0.0, Anion Gap 4L, Glomerular Filtration Rate > 60.0, Blood Urea Nitrogen 29H, Creatinine 0.91, Sodium Level 138, Potassium Level 4.3#, Chloride Level 106, Carbon Dioxide Level 28, Calcium Level 8.5L, C-Reactive Protein, Quantitative 3.35H 07/08/17 11:56: Bedside Glucose (Misc Panel) 253H CBC/BMP Laboratory Tests 07/08/17 04:49 Red Blood Count 3.82 L, Mean Corpuscular Volume 88.5, Mean Corpuscular Hemoglobin 29.6, Mean Corpuscular Hemoglobin Concent 33.4, Red Cell Distribution Width 12.5, Neutrophils (%) (Auto) 41.2, Lymphocytes (%) (Auto) 37.5, Monocytes (%) (Auto) 11.9 H, Eosinophils (%) (Auto) 8.0 H, Basophils (%) ( Auto) 1.0, Neutrophils # (Auto) 2.1, Lymphocytes # (Auto) 1.9, Monocytes # (Auto ) 0.6, Eosinophils # (Auto) 0.4, Basophils # (Auto) 0.1, Calcium Level 8.5 L Microbiology Microbiology 07/07/17 Blood Culture - Preliminary, Resulted No growth after 24 hours . All specim... 07/07/17 Blood Culture - Preliminary, Resulted No growth after 24 hours . All specim... 07/05/17 Blood Culture - Final, Complete Clostridium Perfringens 07/05/17 Influenza Virus Type A Antigen - Final, Complete 07/05/17 Influenza Virus Type B Antigen - Final, Complete 07/05/17 Urine Culture - Final, Complete GME ATTESTATION GME ATTESTATION My faculty preceptor for this patient encounter was physically present during the encounter and was fully available. All aspects of the patient interview, examination, medical decision making process, and medical care plan development were reviewed and approved by the faculty preceptor. The faculty preceptor is aware and concurs with the plan as stated in the body of this note and will attest to such by his/her cosignature. EDIE GOSS DO Jul 08, 2017 16:44
[2017-07-08] MEDS ORDERED: GASTROGRAFIN SOLUTION 30ML (Q9963) PO ONE (16:45)
[2017-07-08] MEDS ORDERED: ISOVUE-370 76% 100ML VIAL (Q9967) As Ordered ONE (17:34)
--- NOTE | 2017-07-08 19:50 | CR ---
DATE OF CONSULTATION: 07/08/2017 REQUESTING PHYSICIAN: Dr. Roberson REASON FOR CONSULTATION: For evaluation of Clostridium Perfringens on positive blood cultures. HISTORY OF PRESENT ILLNESS: Ms. Bethea is a pleasant 66-year-old female who was admitted on 07/05/2017 complaining of generalized weakness, loss of appetite and nausea. The patient states that she had not been feeling good since the end of this summer. She had lost about 12 pounds unintentionally in the past 2 months and complained of low back pain. She was also complaining of nausea, decreased appetite and epigastric pain intermittently. She did not have any cough, shortness of breath, dizziness, chest pain, fever or chills. She did complain of low back pain as well without any recent trauma. She had normal urinary symptoms, but a week prior to admission on 06/28/2017 she was seen by her primary care provider and since she has low back pain urinalysis and urine culture were done. It had more than 100,000 E. Coli. She was given Macrodantin which she took for a couple of days and then was admitted. On admission, her white count was 11,000. Erythrocyte sedimentation rate was 60, CRP 13.1. The patient was started on IV cefazolin even though she had some listed allergies including CEPHALOSPORIN causing yeast infection. This needs to be removed. PENICILLIN, she is not sure why she is allergic to it. SULFA. PAST MEDICAL HISTORY: Significant for coronary artery disease, status post percutaneous transluminal coronary angioplasty (PTCA) in 2011. Myocardial infarction. Diabetes. Hypertension. Hypothyroidism. Diastolic heart failure with ejection fraction of 75%. PAST SURGICAL HISTORY: Right total knee replacement. Left total hip arthroplasty. Bilateral oophorectomy. FAMILY HISTORY: Non-revealing. SOCIAL HISTORY: She does not smoke, drink or use drugs. She is disabled and lives at home by herself. REVIEW OF SYSTEMS: She does complain of malaise and fatigue with anorexia and nausea, but these have improved since admission. She has low back pain but no urinary symptoms. No dysuria or hematuria, or urinary retention. No upper or lower extremity weakness. MEDICATIONS: - doxycycline 100 mg IV every 12 hours started today. Prior to that she was receiving cefazolin 1 gram every 8 hours - furosemide 40 mg by mouth daily - nystatin to groin and umbilicus - atorvastatin 80 mg by mouth every 48 hours - Levemir 44 units subcutaneous at bedtime - Lac-Hydrin to both feet daily - aspirin 81 mg by mouth daily - lisinopril 5 mg daily - Protonix 40 mg by mouth daily - glimepiride 4 mg by mouth twice a day - levothyroxine 88 mcg by mouth daily - Zofran as needed - tramadol as needed - Tylenol as needed for fever - On admission the patient also received one dose of fosfomycin, 3 grams by mouth on 07/06. LABS: White count on 07/05 was 11.4, hemoglobin 13.5, hematocrit 39.5, erythrocyte sedimentation rate 60. Today white count is 5.1, hemoglobin 11.3, hematocrit 33.8, platelets 203. Sodium 138, potassium 4.3, chloride 106, bicarbonate 28, BUN 29, creatinine 0.91. Glucose 147, calcium 8.5, CRP is 3.35 down from 13.1. Influenza A and B were negative. Urine culture with no organism of significance. Urinalysis had 42 white cells, 15 red cells. Blood cultures only one was drawn on 07/05 and was positive for Gram-negative rods in anaerobic bottle consistent with Clostridium Perfringens. Two repeat blood cultures done on 07/07 were no growth after 24 hours. Chest x-ray 07/05 showed no acute pulmonary process. PHYSICAL EXAMINATION: She is a pleasant healthy looking female in no acute distress. Temperature is 98.1, pulse 90, respirations 16, blood pressure 147/67, oxygen saturation 93% to 100% on room air. The patient is sitting in her chair waiting for her supper. In no acute distress. She has been afebrile throughout her admission over the past 4 days. Heart: Normal S1, S2 with no murmurs. Irregularly regular. Lungs: Clear. No wheezes, rales or rhonchi. Abdomen: Morbidly obese. Soft, nontender. No palpable hepatosplenomegaly. Back: No costovertebral angle (CVA) tenderness, but she has lower lumbosacral tenderness. Extremities: Trace edema. No rashes. Oropharynx is clear with no thrush. She has multiple absent teeth. IMPRESSION: This is a 66-year-old female who presented with a couple months history of not feeling well including nausea, anorexia, 12 pound weight loss and some vague abdominal discomfort. She was treated a week ago for a urinary tract infection with E. coli on 06/28 with Macrobid and has received here fosfomycin as well as cefazolin. The patient on one blood culture from admission has Clostridium Perfringens on culture. This is usually an anaerobic pathogen from gut origin and one should rule out an abscess or malignancy with necrosis that would lead to a Clostridium infection. PLAN: 1. The case has been discussed with Dr. Roberson who had ordered a CT abdomen and pelvis with oral and IV contrast to rule out intraabdominal pathology including abscess or malignancy. 2. The patient has been scheduled to see Dr. Soliman for endoscopy and colonoscopy in August. She has never had a colonoscopy done. 3. Discontinue doxycycline. This is not the drug of choice for an anaerobic infection and switch her to Invanz 1 gram daily. Will continue to follow. Thank you for the consultation.
[2017-07-08] MEDS: ERTAPENEM SODIUM 1 GM in APPROPRIATE DILUENT 1 EA IV SCH (20:26)
--- NOTE | 2017-07-08 20:53 | ECHO ---
DATE OF PROCEDURE: 07/07/2017 DATE OF : 1950 AGE: 66 GENDER: Female HEIGHT: 61 inches WEIGHT: 205 pounds BODY SURFACE AREA: 1.91 meters squared INPATIENT: PCU, room 3211 REFERRING PHYSICIAN: Dr. Arias Schafer INDICATION: Shortness of breath. MEASUREMENTS 2D measurements: RV: 4.1 cm LV: 4.0 cm Septum: 1.1 cm Posterior wall: 1.0 cm Aortic root: 2.7 cm LA: 4.0 cm LVEF: 50-55% Doppler measurements: AV: 1.2 meters per second LVOT: 1.0 meters per second LVOT diameter: 2.1 cm MV-E: 94 Early mitral deceleration time: 162 milliseconds E prime: 10.6 E/E prime ratio: 9 PV: 1.0 meters per second Pulmonary artery acceleration time: 116 milliseconds RVSP: 34 mmHg IVC: 2.2 cm COMMENTS: Underlying atrial fibrillation with somewhat slow ventricular response. Right bundle branch block. Technically difficult study in light of the patient's body habitus but diagnostically useful information was still obtained. Mildly dilated left atrium but normal left ventricular size. Right heart chamber sizes were upper limits of normal. LV wall thickness was normal. On real-time imaging from the parasternal and apical projections, the proximal inferior/inferoseptal pak appeared to be akinetic. Other wall motion was normal. Mildly thickened mitral annulus but normal leaflet thickness and excursion with no posterior systolic buckling. Three equal size aortic cusps with mildly thickened cusp edges but adequate cusp separation. Normal aortic root size. No apparent intracardiac mass or pericardial effusion. Color flow Doppler study taken from the parasternal and apical projection showed trace mitral, no aortic and mild tricuspid insufficiency. Guided continuous wave Doppler of her aortic valve showed a normal peak systolic velocity against LV outflow tract obstruction. Pulsed and continuous wave Doppler of her LV inflow tract taken from the apical four-chamber projection showed normal diastolic filling velocities against mitral stenosis. There was only early diastolic/passive filling pattern as we would expect with atrial fibrillation. Difficult to comment on LV diastolic function with atrial fibrillation, but current estimated mean left atrial pressure was within normal limits. Pulsed and continuous wave Doppler of her pulmonary trunk showed a normal peak systolic velocity against RV outflow tract obstruction. Her pulmonary artery acceleration time was lower limits of normal against an elevated pulmonary vascular resistance. Guided continuous wave Doppler of her tricuspid valve allowed our estimation of her right ventricular systolic pressure (mildly increased). Her inferior vena cava appeared to be upper limits of normal to slightly dilated with somewhat reduced respiratory collapse suggestive a central venous pressure of approximately 10 mmHg. CONCLUSIONS: Technically difficult study in light of the patient's body habitus. Normal left ventricular size and wall thickness with inferior/inferoseptal akinesis and perhaps mild impairment of global resting systolic function. Mildly dilated left atrium with current estimated mean left atrial pressure within normal limits. Right heart chambers upper limits of normal in size with normal wall motion. Current estimated pulmonary arterial pressure was mildly increased. Inferior vena cava (IVC) size upper limits of normal with slightly reduced respiratory collapse suggestive of a slightly elevated central venous pressure. Mild aortic valvular sclerosis and mitral annular thickening without functional valvular abnormality.
[2017-07-08] MEDS: ATORVASTATIN 20 MG TAB PO SCH (21:21)
[2017-07-08] MEDS: LEVEMIR (INSULIN DETEMIR) 1 UNITS/0.01ML SC SCH (21:30)
[2017-07-09] VITALS (7 sets, daily range): BP systolic 98–131; BP diastolic 52–62
[2017-07-09 05:28] LABS: BASO # 0.1 10^3/uL (0.0-0.2); BASO % 1.3 % (0.0-1.0); EOS # 0.4 10^3/uL (0.0-0.50); EOS % 6.8 % (0.0-3.0); IMMATURE GRANULOCYTE % 0.5 % (0-0); LYMPH % 36.5 % (24.0-44.0); MEAN CORPUSCULAR HEMOGLOBIN 29.3 pg (27.0-33.0); MEAN CORPUSCULAR HGB CONC 33.1 g/dl (32.0-36.5); MEAN CORPUSCULAR VOLUME 88.3 fl (80.0-96.0); MONO # 0.5 10^3/uL (0.0-0.8); MONO % 9.3 % (0.0-5.0); NEUTROPHILS # 2.6 10^3/uL (1.8-7.7); NEUTROPHILS % 45.6 % (36.0-66.0); PLATELET COUNT, AUTOMATED 207 10^3/uL (150-450); RED CELL DISTRIBUTION WIDTH 12.5 % (11.5-14.5); WHITE BLOOD COUNT 5.6 10^3/uL (4.0-10.0)
[2017-07-09] MEDS: HEPARIN SOD (PORCINE) 5000 UNITS/ML VIAL SQ SCH ×3 (05:40→20:56)
[2017-07-09] MEDS: SLF 3 ML SYR IV SCH ×3 (05:40→20:57)
[2017-07-09] MEDS: LEVOTHYROXINE 88MCG TABLET (0.088 MG) PO SCH (05:40)
[2017-07-09 05:44] LABS: ANION GAP 8 MEQ/L (8-16); BLOOD UREA NITROGEN 28 MG/DL (7-18); CALCIUM LEVEL 8.7 MG/DL (8.8-10.2); CARBON DIOXIDE LEVEL 26 MEQ/L (21-32); CHLORIDE LEVEL 105 MEQ/L (98-107); CREATININE FOR GFR 0.84 MG/DL (0.55-1.02); GLOMERULAR FILTRATION RATE > 60.0 (>45); GLUCOSE, FASTING 158 MG/DL (80-110); POTASSIUM SERUM 4.1 MEQ/L (3.5-5.1); SODIUM LEVEL 139 MEQ/L (136-145)
[2017-07-09] MEDS: HumaLOG INSULIN (NovoLOG) PER UNIT SC SCH ×4 (08:36→20:52)
[2017-07-09] MEDS: PANTOPRAZOLE 40MG TAB (PROTONIX) PO SCH (08:37)
[2017-07-09] MEDS: FUROSEMIDE 40 MG TAB PO SCH (08:37)
[2017-07-09] MEDS: ASPIRIN 81 MG CHEW TABLET PO SCH (08:37)
[2017-07-09] MEDS: GLIMEPIRIDE 2 MG TAB PO SCH ×2 (08:37→16:45)
[2017-07-09] MEDS: LISINOPRIL 5 MG TAB PO SCH (08:37)
[2017-07-09] MEDS: LACTIC ACID 12% LOTION 225 GM BTL TOP SCH (08:38)
--- NOTE | 2017-07-09 08:41 | REP ---
Clinical: Sepsis. Clostridium difficile by culture. Technique: Axial contrast enhanced images from the lung bases to the pubic symphysis using oral and 100 ml Isovue 370 intravenous contrast material with coronal and sagittal re-formations. Comparison: 10/02/2013. Findings: Lung bases are clear. Visualized heart and pericardium are normal. Liver, spleen, pancreas, bilateral adrenal glands are normal. 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 Cholelithiasis noted without CT evidence for acute cholecystitis. The enteric system including stomach, small and large bowel is without obstruction or acute inflammatory process. Normal terminal ileum and appendix identified in the right lower quadrant. Pelvis demonstrates normal bladder and rectosigmoid colon. Scattered diverticula noted without acute diverticulitis. Musculoskeletal structures demonstrate age-related degenerative changes at and left hip replacement without focal osseous abnormality. No ascites. No free air. No significant adenopathy. No solitary mass lesion. Abdominal aorta and vasculature appears relatively normal. Impression: 1. No acute abdominopelvic pathology appreciated. Specifically, no ascites, adenopathy, or acute enteric inflammatory/infectious changes. 2. Cholelithiasis. 3. Congenital horseshoe kidney and 1 cm simple stable right renal cyst. 4. Few scattered sigmoid diverticula without acute diverticulitis. Signed by Jesu Guardado MD 07/09/2017 08:32 A
--- NOTE | 2017-07-09 09:40 | IPN ---
DATE OF SERVICE: 07/09/2017 Barbara is seen in progressive care unit (PCU). She converted to sinus rhythm. She has got some bradycardia going on now, primary sinus bradycardia which is asymptomatic. Her vitals are stable. She had Clostridium Perfringens bacteremia and was seen by Dr. Yeager. CT scan abdomen and pelvis was recommended. It was done but there is no report yet. Antibiotics were changed to Invanz 1 gram daily. Repeat blood cultures are negative. PHYSICAL EXAMINATION: 115/50, pulse 45, respiratory rate 17, 95% oxygen saturation. She is alert, conversant. Lungs clear. Heart: Regular rate and rhythm. 1/6 systolic ejection murmur. Abdomen: Soft, nontender, no masses. Nontender. No peripheral edema. Neurologic exam: Nonfocal. LABS: CBC showed a hemoglobin of 10.8 slowly drifting down probably from bed rest. Electrolytes unremarkable. CRP has gone from 13 to 3 in the last 3 days. Echocardiogram shows left atrial dilatation 40 mm, ejection fraction 50-55%. Mildly increased pulmonary artery pressure. IMPRESSION: 1. Atrial fibrillation, paroxysmal converted to sinus rhythm. She is in aspirin. Decision about anticoagulation for paroxysmal atrial fibrillation but patient does not want anticoagulant. Discussed this at length with her. She is aware of the risk. She will talk about this further with Dr. Nevarez or one of his colleagues in the office but wants to hold aspirin now. She and family members are aware of the risk of this. Echocardiogram shows left atrial dilatation which is borderline but does indicate recent likelihood to revert back to atrial fibrillation. She has some mild bradycardia. Now that she is in sinus rhythm, she is on no chronotropic agents at this point. 2. Clostridium Perfringens bacteremia. CT of abdomen and pelvis is pending. She will need outpatient colonoscopy. She already has an appointment to see Dr. Soliman in August. I will send him a text and ask if he can have this moved ahead. 3. Heart failure. She is on oral Lasix. It is congestive heart failure with preserved ejection fraction. Ejection was 50-55%. Continue current dose of furosemide. 4. Diabetes. Blood sugars are mildly elevated but satisfactory for current inpatient setting. Her hemoglobin A1c was 12% suggesting poor control of her blood sugars as an outpatient. 5. Hypertension. Blood pressure is well controlled. 6. Hypothyroidism. Continue current dose of levothyroxine. 7. E. Coli urinary tract infection. This was diagnosed as an outpatient 06/28/2017. She has been treated at this point.
[2017-07-09] MEDS: NYSTATIN 100,000 UNITS/GM TOPICAL PWD 15 GM TOP SCH ×2 (10:00→20:56)
[2017-07-09] MEDS: traMADol 50 MG TAB PO PRN (11:58)
--- NOTE | 2017-07-09 13:21 | ECGEPIP ---
Stationary ECG Study [facility] Test Date: 2017-07-08 Pat Name: JEFF HERNANDEZ Department: Room: [place] [address] Gender: F Certified Retinal Angiographer: HARSHA : 1950 Requested By: JENN Price PA-C Order Number: [id number] Reading MD: Jesse Lilly Measurements Intervals [place] Rate: 67 P: DE: 0 QRS: 4 QRSD: 138 T: 1 QT: 476 QTc: 504 Interpretive Statements SINUS RHYTHM WITH VENTRICULAR PREMATURE COMPLEXES, INCLUDING COUPLETS POSSIBLE PRIOR INFERIOR WALL INFARCT RIGHT BUNDLE BRANCH BLOCK Compared to the last 2 tracings, patient was in atrial fibrillation Electronically Signed On 07-09-2017 13:21:16 EST by Jesse Lilly
--- NOTE | 2017-07-09 16:57 | IPNPDOC ---
Text Note Date of Service The patient was seen on 07/09/17. NOTE Infectious Disease Progress Note Subjective: Ms. Bethea states that she is feeling somewhat better than when she originally arrived, however not much more improved today than yesterday. She still complains of low back pain in the area of the left SI joint, and states that she may have some vague bilateral flank pains that come and go, and she describes them as aching, but they're becoming more infrequent. Otherwise, she has been up and walking around the room and using the restroom without any troubles. She denies any fevers, chills, night sweats, nausea, vomiting, and really the remainder of her review of systems is negative. Objective: General: Awake, alert, oriented 3. She does not appear to be in any acute distress. She is sitting upright in the recliner. HEENT: Head normocephalic, atraumatic, sclera are nonicteric. Hearing is grossly intact to conversation. Respiratory: Clear to auscultation bilaterally with no wheezes, rales, or rhonchi. Cardiovascular: Regular rate and rhythm, with no rubs, gallops, or murmur. She may have an extra beat every once in a while. Abdomen: Soft, nontender, nondistended, no hepatosplenomegaly appreciated. Bowel sounds present. Extremities: 2+ pulses in the radial and dorsalis pedis bilaterally. No evidence of clubbing or cyanosis. She does have trace edema in the feet bilaterally. Assessment/Plan: 1. Blood culture positive for Clostridium perfringens. Because this is gut molly , the likelihood that it is a skin contaminant as unlikely, and this should not be dismissed home. His CT of the abdomen and pelvis was performed and there is no evidence of malignancy or abscess or other etiology. I recommend that she have a colonoscopy sooner than later, she is scheduled for August with Dr. Soliman, perhaps this can be moved up closer, although it could be performed as an outpatient. She is currently on Invanz while inpatient. Given her good clinical picture as well as normal white count, afebrile, and improving CRP, I would recommend leaving her on this until discharge, then she can be switched over to Keflex for the remainder of what should be 10 total days of antibiotic therapy. The treatment of choice would be a penicillin, however she has an allergy to this. She was given Ancef previously without event, and her listed allergy is a yeast infection, therefore a short course cephalosporin should be fine in her case. My preceptor for this patient encounter was physically present in the building during the encounter and was fully available. As needed, all aspects of the patient interview, examination, medical decision making process, and medical care plan development were reviewed and approved by the preceptor. Preceptor is aware and concurs with the plan as stated in the body of this note and will attest to such by his/her cosignature. VS,Fishbone, I+O VS, Fishbone, I+O Laboratory Tests 07/09/17 05:04 Red Blood Count 3.69 L, Mean Corpuscular Volume 88.3, Mean Corpuscular Hemoglobin 29.3, Mean Corpuscular Hemoglobin Concent 33.1, Red Cell Distribution Width 12.5, Neutrophils (%) (Auto) 45.6, Lymphocytes (%) (Auto) 36.5, Monocytes (%) (Auto) 9.3 H, Eosinophils (%) (Auto) 6.8 H, Basophils (%) ( Auto) 1.3 H, Neutrophils # (Auto) 2.6, Lymphocytes # (Auto) 2.0, Monocytes # ( Auto) 0.5, Eosinophils # (Auto) 0.4, Basophils # (Auto) 0.1, Calcium Level 8.7 L Vital Signs Date Time Temp Pulse Resp B/P (MAP) Pulse Ox O2 Delivery O2 Flow Rate FiO2 07/09/17 12:28 18 07/09/17 12:00 98.5 60 112/52 (72) 97 Room Air 07/09/17 11:58 18.0 I&O- Last 24 Hours up to 6 AM 07/10/17 06:00 Intake Total 120 ml Output Total 1150 ml Balance -1030 ml LOREN DYER DO Jul 09, 2017 16:57
[2017-07-09] MEDS: LEVEMIR (INSULIN DETEMIR) 1 UNITS/0.01ML SC SCH (20:52)
[2017-07-09] MEDS: ERTAPENEM SODIUM 1 GM in APPROPRIATE DILUENT 1 EA IV SCH (20:52)
[2017-07-10] VITALS (7 sets, daily range): BP systolic 96–143; BP diastolic 52–75
[2017-07-10 05:16] LABS: BASO # 0.1 10^3/uL (0.0-0.2); BASO % 1.3 % (0.0-1.0); EOS # 0.3 10^3/uL (0.0-0.50); EOS % 5.3 % (0.0-3.0); IMMATURE GRANULOCYTE % 0.6 % (0-0); LYMPH # 2.9 10^3/uL (1.5-4.5); LYMPH % 45.7 % (24.0-44.0); MEAN CORPUSCULAR HEMOGLOBIN 28.7 pg (27.0-33.0); MEAN CORPUSCULAR HGB CONC 33.1 g/dl (32.0-36.5); MEAN CORPUSCULAR VOLUME 86.6 fl (80.0-96.0); MONO # 0.5 10^3/uL (0.0-0.8); MONO % 8.4 % (0.0-5.0); NEUTROPHILS # 2.4 10^3/uL (1.8-7.7); NEUTROPHILS % 38.7 % (36.0-66.0); PLATELET COUNT, AUTOMATED 233 10^3/uL (150-450); RED CELL DISTRIBUTION WIDTH 12.5 % (11.5-14.5); WHITE BLOOD COUNT 6.3 10^3/uL (4.0-10.0)
[2017-07-10 05:34] LABS: ANION GAP 8 MEQ/L (8-16); BLOOD UREA NITROGEN 30 MG/DL (7-18); CARBON DIOXIDE LEVEL 27 MEQ/L (21-32); CHLORIDE LEVEL 105 MEQ/L (98-107); CREATININE FOR GFR 0.83 MG/DL (0.55-1.02); GLOMERULAR FILTRATION RATE > 60.0 (>45); GLUCOSE, FASTING 104 MG/DL (80-110); POTASSIUM SERUM 3.9 MEQ/L (3.5-5.1); SODIUM LEVEL 140 MEQ/L (136-145)
[2017-07-10] MEDS: LEVOTHYROXINE 88MCG TABLET (0.088 MG) PO SCH (06:35)
[2017-07-10] MEDS: SLF 3 ML SYR IV SCH ×3 (06:36→21:40)
[2017-07-10] MEDS: HEPARIN SOD (PORCINE) 5000 UNITS/ML VIAL SQ SCH ×3 (06:36→21:40)
[2017-07-10] MEDS: HumaLOG INSULIN (NovoLOG) PER UNIT SC SCH ×4 (08:14→21:00)
[2017-07-10] MEDS: FUROSEMIDE 40 MG TAB PO SCH (08:15)
[2017-07-10] MEDS: GLIMEPIRIDE 2 MG TAB PO SCH ×2 (08:15→17:45)
[2017-07-10] MEDS: LACTIC ACID 12% LOTION 225 GM BTL TOP SCH (08:15)
[2017-07-10] MEDS: LISINOPRIL 5 MG TAB PO SCH (08:15)
[2017-07-10] MEDS: PANTOPRAZOLE 40MG TAB (PROTONIX) PO SCH (08:15)
[2017-07-10] MEDS: ASPIRIN 81 MG CHEW TABLET PO SCH (08:15)
[2017-07-10] MEDS: NYSTATIN 100,000 UNITS/GM TOPICAL PWD 15 GM TOP SCH ×2 (08:17→21:41)
--- NOTE | 2017-07-10 11:18 | IPNPDOC ---
Subjective Date Seen The patient was seen on 07/10/17. Subjective Chief Complaint/HPI The patient is a 66-year-old female admitted with a reason for visit of Acute Chf. Events since last encounter Patient states she is doing good today. She does not have any acute concerns. Constitutional: Denies: Chills, Fever Pulmonary: Denies: Dyspnea Cardiovascular: Denies: Chest Pain Gastrointestinal: Denies: Nausea, Vomiting, Abdominal Pain Genitourinary: Denies: Dysuria, Hematuria Objective Physical Examination General Exam: Positive: Alert, No Acute Distress Chest Exam: Positive: Clear to auscultation, Negative: Rales, Rhonchi, Wheezing Heart Exam: Positive: Rate Normal, Regular Rhythm, Normal S1, Normal S2, Negative: Gallops, Murmurs, Rubs Telemetry: Positive: Sinus, PVCs Abdomen Exam: Positive: Normal bowel sounds, Soft, Negative: Tenderness, Hepatospenomegaly, Mass Extremity Exam: Negative: Edema Assessment /Plan Problems (1) Paroxysmal A-fib Status: Acute Response to Treatment: Stable Problem Text: 07/10: Patient sinus rhythm on monitor with PVCs. She will need to discuss her care further with Dr. Nevarez as an outpatient 07/08: Heart rate still irregular, echocardiogram pending 07/07 - Tele with atrial fibrillation - rate in 50s. Few beat V-tach. K+ = 3.5 today - I will give more K+ Mag ok Patient states she was told by cardiology in past that she does not need anticoag but I will call them to see her for recommendations Cont ASA for now Echo pending Rate slow without meds. 07/06 - EKG this morning inf lead ST depression, STAT CIP, Trop ordered, her rate remains controlled, she remains in A Fib. First set of CIP, trop Neg. JFW: TM shows NSR. Trops are flat. Echo pending Pt followed by [facility], bhaskar Coyne last month 07/05 Patient demonstrated atrial fibrillation in the emergency department with a rate in the 60s She is on home aspirin but admits she does not take it every day he cut she forgets Continue daily aspirin and consider cardiology consult in the morning in regards to adding on second anti-coagulation medication Patient's chads 2 vasc score is 5 which puts her at a 6.7% per year risk Continue home lisinopril and statin First set of cardiac troponins negative Repeat EKG in the morning Telemetry monitoring (2) Bacterial infection due to Clostridium perfringens Problem Text: 07/10: Patient switched to ertapenem by infectious disease, when stable for discharge they are recommending she be switched to Keflex for a combined total of 10 days of antibiotic therapy. Patient was previously scheduled for endoscopy in August, this appointment has been moved up and she will have endoscopy a few weeks after discharge. 07/08: Patient's blood culture grew Clostridium perfringens. Antibiotic was changed from cefazolin to doxycycline. Infectious disease was consulted for further evaluation. Order placed for CT of abdomen and pelvis for further evaluation due to concern for colonic pathology. (3) Coronary artery disease Status: Chronic Response to Treatment: Stable Problem Text: 07/06 asymptomatic, see above. 07/05 Stable, EKG in emergency department showed A. fib but no concerning signs of active ischemia, continue daily aspirin and consider cardiology consult in the morning in regards to re-initiation of anticoagulation (4) Heart failure Status: Chronic Response to Treatment: Stable Problem Text: Continue Lasix 40 mg daily - switch to po JFW 07/06: reviewed [facility] record 05/24/17, last EF 45% cath 05/08 at [facility]; will get updated echo (5) Diabetes Status: Chronic Response to Treatment: Uncontrolled Discussed With: Nurse, Patient Problem Specific Plan: Monitor Clinically, Repeat Labs Problem Text: 07/07 - continue Levemir 44 units daily Also on Amaryl but may want to work with Insulin alone considering CV risk of Sulfonylurea. 07/06 Increased Levemir to 44 units today, her A1c 12% on admission, talked with nursing and pt about DM2 education. This is likely the culprit of her symptoms. She had elevated sugars, stopped eating bc she was feeling more sick after eating, and then began to feel worse and with weakness, she thought here FSBS would go down when she stopped eating. 07/05 converted home lantus to levemir 36 units qhs sliding scale coverage hga1c ordered (6) Hypertension Status: Chronic Response to Treatment: Stable Problem Text: Blood pressure stable, continue with home medication (7) UTI (urinary tract infection) Status: Acute Response to Treatment: Stable Problem Text: 07/08: Patient states that she took Macrobid all weekend prior to hospitalization. Blood culture grew Clostridium perfringens (see above) s/p nitrofurantoin on admission B/C x 1 - gram neg rods - start Tigecycline due to E.Coli UTI prior to admission 06/28 U/C JFW: I trieds to rx tigecycline but requires ID stamp of approval and ID is unavailable today. She has multiple drug allergies, and limited sensitivies based on 06/28 U/C. Summarized decision in my dictated note (8) Hypothyroidism Status: Chronic Response to Treatment: Stable Problem Text: Continue with home dose of medication (9) DVT prophylaxis Status: Acute Response to Treatment: Stable Problem Text: SCD and teds Plan/VTE VTE Prophylaxis Ordered?: Yes VS, I&O, 24H, Fishbone Vital Signs/I&O Vital Signs Date Time Temp Pulse Resp B/P (MAP) Pulse Ox O2 Delivery O2 Flow Rate FiO2 07/10/17 08:15 117/69 07/10/17 08:00 96.7 55 18 97 Room Air 07/09/17 11:58 18.0 I&O- Last 24 Hours up to 6 AM 07/11/17 06:00 Intake Total 60 ml Balance 60 ml Laboratory Data 24H LABS Laboratory Tests 2 07/09/17 11:49: Bedside Glucose (Misc Panel) 228H 07/09/17 16:34: Bedside Glucose (Misc Panel) 156H 07/09/17 20:29: Bedside Glucose (Misc Panel) 120H 07/10/17 04:44: Immature Granulocyte % (Auto) 0.6H, White Blood Count 6.3, Red Blood Count 3.73L , Hemoglobin 10.7L, Hematocrit 32.3L, Mean Corpuscular Volume 86.6, Mean Corpuscular Hemoglobin 28.7, Mean Corpuscular Hemoglobin Concent 33.1, Red Cell Distribution Width 12.5, Platelet Count 233, Neutrophils (%) (Auto) 38.7, Lymphocytes (%) (Auto) 45.7H, Monocytes (%) (Auto) 8.4H, Eosinophils (%) (Auto) 5.3H, Basophils (%) (Auto) 1.3H, Neutrophils # (Auto) 2.4, Lymphocytes # (Auto) 2.9, Monocytes # (Auto) 0.5, Eosinophils # (Auto) 0.3, Basophils # (Auto) 0.1, Immature Granulocyte # (Auto) 0.0, Nucleated Red Blood Cells % (auto) 0.0, Anion Gap 8, Glomerular Filtration Rate > 60.0, Blood Urea Nitrogen 30H, Creatinine 0.83, Sodium Level 140, Potassium Level 3.9, Chloride Level 105, Carbon Dioxide Level 27, Calcium Level 9.0 CBC/BMP Laboratory Tests 07/10/17 04:44 Red Blood Count 3.73 L, Mean Corpuscular Volume 86.6, Mean Corpuscular Hemoglobin 28.7, Mean Corpuscular Hemoglobin Concent 33.1, Red Cell Distribution Width 12.5, Neutrophils (%) (Auto) 38.7, Lymphocytes (%) (Auto) 45.7 H, Monocytes (%) (Auto) 8.4 H, Eosinophils (%) (Auto) 5.3 H, Basophils (%) (Auto) 1.3 H, Neutrophils # (Auto) 2.4, Lymphocytes # (Auto) 2.9, Monocytes # ( Auto) 0.5, Eosinophils # (Auto) 0.3, Basophils # (Auto) 0.1, Calcium Level 9.0 Microbiology Microbiology 07/07/17 Blood Culture - Preliminary, Resulted No Growth after 48 hours. All Specime... 07/07/17 Blood Culture - Preliminary, Resulted No Growth after 48 hours. All Specime... 07/05/17 Blood Culture - Final, Complete Clostridium Perfringens 07/05/17 Influenza Virus Type A Antigen - Final, Complete 07/05/17 Influenza Virus Type B Antigen - Final, Complete 07/05/17 Urine Culture - Final, Complete GME ATTESTATION GME ATTESTATION My faculty preceptor for this patient encounter was physically present during the encounter and was fully available. All aspects of the patient interview, examination, medical decision making process, and medical care plan development were reviewed and approved by the faculty preceptor. The faculty preceptor is aware and concurs with the plan as stated in the body of this note and will attest to such by his/her cosignature. Attending Note Attending Note If vitals remain stable, likely discharge tomorrow on po antibiotic as recommended by Dr. Yeager, ID sfdc consultant. EDIE GOSS DO Jul 10, 2017 11:18 Uriel Quinonez MD Jul 10, 2017 16:04
[2017-07-10] MEDS: ERTAPENEM SODIUM 1 GM in APPROPRIATE DILUENT 1 EA IV SCH (20:21)
[2017-07-10] MEDS: ATORVASTATIN 20 MG TAB PO SCH (21:40)
[2017-07-10] MEDS: LEVEMIR (INSULIN DETEMIR) 1 UNITS/0.01ML SC SCH (21:41)
[2017-07-11 03:55] VITALS: BP 113/56
[2017-07-11] MEDS: SLF 3 ML SYR IV SCH ×3 (05:31→21:21)
[2017-07-11] MEDS: HEPARIN SOD (PORCINE) 5000 UNITS/ML VIAL SQ SCH ×3 (05:31→21:21)
[2017-07-11] MEDS: LEVOTHYROXINE 88MCG TABLET (0.088 MG) PO SCH (05:31)
[2017-07-11 06:09] LABS: BASO # 0.1 10^3/uL (0.0-0.2); BASO % 1.1 % (0.0-1.0); EOS # 0.3 10^3/uL (0.0-0.50); EOS % 4.6 % (0.0-3.0); IMMATURE GRANULOCYTE % 0.7 % (0-0); LYMPH % 42.4 % (24.0-44.0); MEAN CORPUSCULAR HEMOGLOBIN 29.9 pg (27.0-33.0); MONO # 0.5 10^3/uL (0.0-0.8); MONO % 7.7 % (0.0-5.0); NEUTROPHILS # 3.1 10^3/uL (1.8-7.7); NEUTROPHILS % 43.5 % (36.0-66.0); PLATELET COUNT, AUTOMATED 247 10^3/uL (150-450); RED CELL DISTRIBUTION WIDTH 12.4 % (11.5-14.5)
[2017-07-11 06:23] LABS: ANION GAP 8 MEQ/L (8-16); BLOOD UREA NITROGEN 27 MG/DL (7-18); CALCIUM LEVEL 8.9 MG/DL (8.8-10.2); CARBON DIOXIDE LEVEL 28 MEQ/L (21-32); CHLORIDE LEVEL 104 MEQ/L (98-107); CREATININE FOR GFR 0.79 MG/DL (0.55-1.02); GLOMERULAR FILTRATION RATE > 60.0 (>45); GLUCOSE, FASTING 137 MG/DL (80-110); POTASSIUM SERUM 3.8 MEQ/L (3.5-5.1); SODIUM LEVEL 140 MEQ/L (136-145)
[2017-07-11 08:00] VITALS: BP 137/72
[2017-07-11] MEDS: GLIMEPIRIDE 2 MG TAB PO SCH ×2 (08:53→17:46)
[2017-07-11] MEDS: LISINOPRIL 5 MG TAB PO SCH (08:53)
[2017-07-11] MEDS: ASPIRIN 81 MG CHEW TABLET PO SCH (08:53)
[2017-07-11] MEDS: PANTOPRAZOLE 40MG TAB (PROTONIX) PO SCH (08:53)
[2017-07-11] MEDS: FUROSEMIDE 40 MG TAB PO SCH (08:53)
[2017-07-11] MEDS: HumaLOG INSULIN (NovoLOG) PER UNIT SC SCH ×4 (08:54→21:00)
[2017-07-11] MEDS: NYSTATIN 100,000 UNITS/GM TOPICAL PWD 15 GM TOP SCH ×2 (08:55→21:22)
[2017-07-11] MEDS: LACTIC ACID 12% LOTION 225 GM BTL TOP SCH (08:55)
--- NOTE | 2017-07-11 11:22 | IPNPDOC ---
Subjective Date Seen The patient was seen on 07/11/17. Subjective Chief Complaint/HPI The patient is a 66-year-old female admitted with a reason for visit of Acute Chf. ENT: Denies: Head Aches Pulmonary: Denies: Dyspnea, Cough Cardiovascular: Denies: Chest Pain, Palpitations Gastrointestinal: Reports: Nausea Genitourinary: Denies: Dysuria Objective Physical Examination General Exam: Positive: Alert, No Acute Distress Chest Exam: Positive: Clear to auscultation, Negative: Rales, Rhonchi, Wheezing Heart Exam: Positive: Rate Normal, Regular Rhythm, Normal S1, Normal S2, Negative: Gallops, Murmurs, Rubs Telemetry: Positive: Sinus, PVCs Abdomen Exam: Positive: Normal bowel sounds, Soft, Tenderness (mildly uncomfortable with palpation upper abdomen, no rebound, no mass), Negative: Hepatospenomegaly, Mass Extremity Exam: Negative: Edema Assessment /Plan Problems (1) Paroxysmal A-fib Status: Acute Response to Treatment: Stable Problem Text: 07/10: Patient sinus rhythm on monitor with PVCs. She will need to discuss her care further with Dr. Nevarez as an outpatient 07/08: Heart rate still irregular, echocardiogram pending 07/07 - Tele with atrial fibrillation - rate in 50s. Few beat V-tach. K+ = 3.5 today - I will give more K+ Mag ok Patient states she was told by cardiology in past that she does not need anticoag but I will call them to see her for recommendations Cont ASA for now Echo pending Rate slow without meds. 07/06 - EKG this morning inf lead ST depression, STAT CIP, Trop ordered, her rate remains controlled, she remains in A Fib. First set of CIP, trop Neg. JFW: TM shows NSR. Trops are flat. 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 ID note did not specify oral agent to substitute. (note patient allergy list) it seems that she would be at risk for relapse with new bacteremia if she went off antibiotic before the portal of entry is identified and treated. would much prefer to have colonoscopy done before her antibiotic course (IV or oral) is ended. Her family would like for it to be done before discharge. will review meds to see if any med may be contributing to nausea. she reports that she has past history of intolerance of atorvastatin. 07/10: Patient switched to ertapenem by infectious disease, when stable for discharge they are recommending she be switched to Keflex for a combined total of 10 days of antibiotic therapy. Patient was previously scheduled for endoscopy in August, this appointment has been moved up and she will have endoscopy a few weeks after discharge. 07/08: Patient's blood culture grew Clostridium perfringens. Antibiotic was changed from cefazolin to doxycycline. Infectious disease was consulted for further evaluation. Order placed for CT of abdomen and pelvis for further evaluation due to concern for colonic pathology. (3) Coronary artery disease Status: Chronic Response to Treatment: Stable Problem Text: 07/06 asymptomatic, see above. 07/05 Stable, EKG in emergency department showed A. fib but no concerning signs of active ischemia, continue daily aspirin and consider cardiology consult in the morning in regards to re-initiation of anticoagulation (4) Heart failure Status: Chronic Response to Treatment: Stable Problem Text: Continue Lasix 40 mg daily - switch to po JFW 07/06: reviewed [facility] record 05/24/17, last EF 45% cath 05/08 at [facility]; will get updated echo (5) Diabetes Status: Chronic Response to Treatment: Uncontrolled Discussed With: Nurse, Patient Problem Specific Plan: Monitor Clinically, Repeat Labs Problem Text: 07/11: c/o some nausea. multiple allergies noted. will stop glimepiride. will likely require dose increase of basal insulin. 07/07 - continue Levemir 44 units daily Also on Amaryl but may want to work with Insulin alone considering CV risk of Sulfonylurea. 07/06 Increased Levemir to 44 units today, her A1c 12% on admission, talked with nursing and pt about DM2 education. This is likely the culprit of her symptoms. She had elevated sugars, stopped eating bc she was feeling more sick after eating, and then began to feel worse and with weakness, she thought here FSBS would go down when she stopped eating. 07/05 converted home lantus to levemir 36 units qhs sliding scale coverage hga1c ordered (6) Hypertension Status: Chronic Response to Treatment: Stable Problem Text: Blood pressure stable, continue with home medication (7) UTI (urinary tract infection) Status: Acute Response to Treatment: Stable Problem Text: 07/08: Patient states that she took Macrobid all weekend prior to hospitalization. Blood culture grew Clostridium perfringens (see above) s/p nitrofurantoin on admission B/C x 1 - gram neg rods - start Tigecycline due to E.Coli UTI prior to admission 06/28 U/C JFW: I trieds to rx tigecycline but requires ID stamp of approval and ID is unavailable today. She has multiple drug allergies, and limited sensitivies based on 06/28 U/C. Summarized decision in my dictated note (8) Hypothyroidism Status: Chronic Response to Treatment: Stable Problem Text: Continue with home dose of medication (9) DVT prophylaxis Status: Acute Response to Treatment: Stable Problem Text: SCD and teds Plan/VTE VTE Prophylaxis Ordered?: Yes VS, I&O, 24H, Fishbone Vital Signs/I&O Vital Signs Date Time Temp Pulse Resp B/P (MAP) Pulse Ox O2 Delivery O2 Flow Rate FiO2 07/11/17 08:53 137/72 07/11/17 08:00 97.4 50 14 98 Room Air 07/09/17 11:58 18.0 I&O- Last 24 Hours up to 6 AM 07/12/17 06:00 Intake Total 360 ml Balance 360 ml Laboratory Data 24H LABS Laboratory Tests 2 07/10/17 11:37: Bedside Glucose (Misc Panel) 156H 07/10/17 16:33: Bedside Glucose (Misc Panel) 148H 07/11/17 05:11: Immature Granulocyte % (Auto) 0.7H, White Blood Count 7.0, Red Blood Count 3.68L , Hemoglobin 11.0L, Hematocrit 32.4L, Mean Corpuscular Volume 88.0, Mean Corpuscular Hemoglobin 29.9, Mean Corpuscular Hemoglobin Concent 34.0, Red Cell Distribution Width 12.4, Platelet Count 247, Neutrophils (%) (Auto) 43.5, Lymphocytes (%) (Auto) 42.4, Monocytes (%) (Auto) 7.7H, Eosinophils (%) (Auto) 4.6H, Basophils (%) (Auto) 1.1H, Neutrophils # (Auto) 3.1, Lymphocytes # (Auto) 3.0, Monocytes # (Auto) 0.5, Eosinophils # (Auto) 0.3, Basophils # (Auto) 0.1, Immature Granulocyte # (Auto) 0.1H, Nucleated Red Blood Cells % (auto) 0.0, Anion Gap 8, Glomerular Filtration Rate > 60.0, Blood Urea Nitrogen 27H, Creatinine 0.79, Sodium Level 140, Potassium Level 3.8, Chloride Level 104, Carbon Dioxide Level 28, Calcium Level 8.9 CBC/BMP Laboratory Tests 07/11/17 05:11 Red Blood Count 3.68 L, Mean Corpuscular Volume 88.0, Mean Corpuscular Hemoglobin 29.9, Mean Corpuscular Hemoglobin Concent 34.0, Red Cell Distribution Width 12.4, Neutrophils (%) (Auto) 43.5, Lymphocytes (%) (Auto) 42.4, Monocytes (%) (Auto) 7.7 H, Eosinophils (%) (Auto) 4.6 H, Basophils (%) ( Auto) 1.1 H, Neutrophils # (Auto) 3.1, Lymphocytes # (Auto) 3.0, Monocytes # ( Auto) 0.5, Eosinophils # (Auto) 0.3, Basophils # (Auto) 0.1, Calcium Level 8.9 Microbiology Microbiology 07/07/17 Blood Culture - Preliminary, Resulted No Growth after 72 hours. All specime... 07/07/17 Blood Culture - Preliminary, Resulted No Growth after 72 hours. All specime... 07/05/17 Blood Culture - Final, Complete Clostridium Perfringens 07/05/17 Influenza Virus Type A Antigen - Final, Complete 07/05/17 Influenza Virus Type B Antigen - Final, Complete 07/05/17 Urine Culture - Final, Complete Uriel Quinonez MD Jul 11, 2017 11:22
[2017-07-11 12:00] VITALS: BP 119/58
[2017-07-11 16:00] VITALS: BP_SYST 147; BP_SYST 151; BP_DIAS 70; BP_DIAS 83
[2017-07-11 20:00] VITALS: BP 112/53
[2017-07-11] MEDS: ERTAPENEM SODIUM 1 GM in APPROPRIATE DILUENT 1 EA IV SCH (20:11)
[2017-07-11] MEDS: LEVEMIR (INSULIN DETEMIR) 1 UNITS/0.01ML SC SCH (21:21)
[2017-07-11 23:59] VITALS: BP 105/61
[2017-07-12] VITALS (7 sets, daily range): BP systolic 102–137; BP diastolic 51–68
[2017-07-12 05:40] LABS: BASO # 0.1 10^3/uL (0.0-0.2); BASO % 0.8 % (0.0-1.0); EOS # 0.3 10^3/uL (0.0-0.50); EOS % 4.3 % (0.0-3.0); IMMATURE GRANULOCYTE % 1.1 % (0-0); LYMPH # 3.5 10^3/uL (1.5-4.5); LYMPH % 44.2 % (24.0-44.0); MEAN CORPUSCULAR HEMOGLOBIN 29.9 pg (27.0-33.0); MEAN CORPUSCULAR HGB CONC 34.2 g/dl (32.0-36.5); MEAN CORPUSCULAR VOLUME 87.3 fl (80.0-96.0); MONO # 0.7 10^3/uL (0.0-0.8); MONO % 8.2 % (0.0-5.0); NEUTROPHILS # 3.3 10^3/uL (1.8-7.7); NEUTROPHILS % 41.4 % (36.0-66.0); PLATELET COUNT, AUTOMATED 259 10^3/uL (150-450); RED CELL DISTRIBUTION WIDTH 12.4 % (11.5-14.5); WHITE BLOOD COUNT 7.9 10^3/uL (4.0-10.0)
[2017-07-12 06:12] LABS: ANION GAP 7 MEQ/L (8-16); BLOOD UREA NITROGEN 25 MG/DL (7-18); CALCIUM LEVEL 8.6 MG/DL (8.8-10.2); CARBON DIOXIDE LEVEL 27 MEQ/L (21-32); CHLORIDE LEVEL 105 MEQ/L (98-107); CREATININE FOR GFR 0.71 MG/DL (0.55-1.02); GLOMERULAR FILTRATION RATE > 60.0 (>45); GLUCOSE, FASTING 148 MG/DL (80-110); POTASSIUM SERUM 3.7 MEQ/L (3.5-5.1); SODIUM LEVEL 139 MEQ/L (136-145)
[2017-07-12] MEDS: HEPARIN SOD (PORCINE) 5000 UNITS/ML VIAL SQ SCH ×3 (06:55→21:09)
[2017-07-12] MEDS: LEVOTHYROXINE 88MCG TABLET (0.088 MG) PO SCH (06:55)
[2017-07-12] MEDS: SLF 3 ML SYR IV SCH ×3 (06:55→21:09)
[2017-07-12] MEDS: FUROSEMIDE 40 MG TAB PO SCH (08:47)
[2017-07-12] MEDS: ASPIRIN 81 MG CHEW TABLET PO SCH (08:47)
[2017-07-12] MEDS: GLIMEPIRIDE 2 MG TAB PO SCH ×2 (08:47→17:11)
[2017-07-12] MEDS: HumaLOG INSULIN (NovoLOG) PER UNIT SC SCH ×4 (08:47→21:10)
[2017-07-12] MEDS: LISINOPRIL 5 MG TAB PO SCH (08:47)
[2017-07-12] MEDS: PANTOPRAZOLE 40MG TAB (PROTONIX) PO SCH (08:48)
[2017-07-12] MEDS: NYSTATIN 100,000 UNITS/GM TOPICAL PWD 15 GM TOP SCH ×2 (08:50→21:11)
[2017-07-12] MEDS: LACTIC ACID 12% LOTION 225 GM BTL TOP SCH (08:51)
[2017-07-12] MEDS: ACETAMINOPHEN TAB 650MG DOSE (2X325MG) PO PRN (12:32)
--- NOTE | 2017-07-12 16:44 | IPNPDOC ---
Subjective Date Seen The patient was seen on 07/12/17. Subjective Chief Complaint/HPI The patient is a 66-year-old female admitted with a reason for visit of Acute Chf. Events since last encounter Patient states that she is doing good today. She is only complaining about some back pain today. She does not have any other acute concerns today. Constitutional: Denies: Chills, Fever Pulmonary: Denies: Dyspnea Cardiovascular: Denies: Chest Pain Objective Physical Examination General Exam: Positive: Alert, No Acute Distress Chest Exam: Positive: Clear to auscultation, Normal air movement, Negative: Rales, Rhonchi, Wheezing Heart Exam: Positive: Rate Normal, Regular Rhythm, Normal S1, Normal S2, Negative: Gallops, Murmurs, Rubs Telemetry: Positive: Sinus, PVCs Abdomen Exam: Positive: Normal bowel sounds, Soft, Negative: Tenderness, Hepatospenomegaly, Mass Extremity Exam: Positive: Edema (bilateral total level of knee) Assessment /Plan Problems (1) Paroxysmal A-fib Status: Acute Response to Treatment: Stable Problem Text: 07/12: Patient sinus rhythm on monitor with PVCs 07/10: Patient sinus rhythm on monitor with PVCs. She will need to discuss her care further with Dr. Nevarez as an outpatient 07/08: Heart rate still irregular, echocardiogram pending 07/07 - Tele with atrial fibrillation - rate in 50s. Few beat V-tach. K+ = 3.5 today - I will give more K+ Mag ok Patient states she was told by cardiology in past that she does not need anticoag but I will call them to see her for recommendations Cont ASA for now Echo pending Rate slow without meds. 07/06 - EKG this morning inf lead ST depression, STAT CIP, Trop ordered, her rate remains controlled, she remains in A Fib. First set of CIP, trop Neg. JFW: TM shows NSR. Trops are flat. 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 She was agreeable to having procedure performed as outpatient. Infectious disease has recommended that she be discharged on oral Keflex. Plan will be to likely discharge her tomorrow with a prescription for Keflex. I called Dr. Soliman's office to find out what would be the earliest she could be scheduled for consultation, they were able to schedule her an outpatient appointment on at 1:30 PM. She will be prescribed Keflex and continue Keflex until she has been seen in Dr. Soliman's office. 07/11: patient still on ertpenem. ID note did not specify oral agent to substitute. (note patient allergy list) it seems that she would be at risk for relapse with new bacteremia if she went off antibiotic before the portal of entry is identified and treated. would much prefer to have colonoscopy done before her antibiotic course (IV or oral) is ended. Her family would like for it to be done before discharge. will review meds to see if any med may be contributing to nausea. she reports that she has past history of intolerance of atorvastatin. 07/10: Patient switched to ertapenem by infectious disease, when stable for discharge they are recommending she be switched to Keflex for a combined total of 10 days of antibiotic therapy. Patient was previously scheduled for endoscopy in August, this appointment has been moved up and she will have endoscopy a few weeks after discharge. 07/08: Patient's blood culture grew Clostridium perfringens. Antibiotic was changed from cefazolin to doxycycline. Infectious disease was consulted for further evaluation. Order placed for CT of abdomen and pelvis for further evaluation due to concern for colonic pathology. (3) Coronary artery disease Status: Chronic Response to Treatment: Stable Problem Text: 07/06 asymptomatic, see above. 07/05 Stable, EKG in emergency department showed A. fib but no concerning signs of active ischemia, continue daily aspirin and consider cardiology consult in the morning in regards to re-initiation of anticoagulation (4) Heart failure Status: Chronic Response to Treatment: Stable Problem Text: Continue Lasix 40 mg daily - switch to po JFW 07/06: reviewed [facility] record 05/24/17, last EF 45% cath 05/08 at [facility]; will get updated echo (5) Diabetes Status: Chronic Response to Treatment: Uncontrolled Discussed With: Nurse, Patient Problem Specific Plan: Monitor Clinically, Repeat Labs Problem Text: 07/11: c/o some nausea. multiple allergies noted. will stop glimepiride. will likely require dose increase of basal insulin. 07/07 - continue Levemir 44 units daily Also on Amaryl but may want to work with Insulin alone considering CV risk of Sulfonylurea. 07/06 Increased Levemir to 44 units today, her A1c 12% on admission, talked with nursing and pt about DM2 education. This is likely the culprit of her symptoms. She had elevated sugars, stopped eating bc she was feeling more sick after eating, and then began to feel worse and with weakness, she thought here FSBS would go down when she stopped eating. 07/05 converted home lantus to levemir 36 units qhs sliding scale coverage hga1c ordered (6) Hypertension Status: Chronic Response to Treatment: Stable Problem Text: Blood pressure stable, continue with home medication (7) UTI (urinary tract infection) Status: Acute Response to Treatment: Stable Problem Text: 07/12: Patient being treated with ertapenem for clostridium perfringens bacteremia, will be transitioned to Keflex today. Sensitivities were reviewed for Escherichia coli, sensitive to both ertapenem and Keflex. 07/08: Patient states that she took Macrobid all weekend prior to hospitalization. Blood culture grew Clostridium perfringens (see above) (8) Hypothyroidism Status: Chronic Response to Treatment: Stable Problem Text: Continue with home dose of medication (9) DVT prophylaxis Status: Acute Response to Treatment: Stable Problem Text: SCD and teds Plan/VTE VTE Prophylaxis Ordered?: Yes Disposition Anticipate discharge tomorrow on oral Keflex until appointment with Dr. Soliman on 07/20/17 VS, I&O, 24H, Fishbone Vital Signs/I&O Vital Signs Date Time Temp Pulse Resp B/P (MAP) Pulse Ox O2 Delivery O2 Flow Rate FiO2 07/12/17 15:56 97.1 51 18 102/68 (79) 96 Room Air 07/09/17 11:58 18.0 I&O- Last 24 Hours up to 6 AM 07/13/17 06:00 Intake Total 240 ml Output Total 200 ml Balance 40 ml Laboratory Data 24H LABS Laboratory Tests 2 07/11/17 20:13: Bedside Glucose (Misc Panel) 167H 07/12/17 05:13: Immature Granulocyte % (Auto) 1.1H, White Blood Count 7.9, Red Blood Count 3.78L , Hemoglobin 11.3L, Hematocrit 33.0L, Mean Corpuscular Volume 87.3, Mean Corpuscular Hemoglobin 29.9, Mean Corpuscular Hemoglobin Concent 34.2, Red Cell Distribution Width 12.4, Platelet Count 259, Neutrophils (%) (Auto) 41.4, Lymphocytes (%) (Auto) 44.2H, Monocytes (%) (Auto) 8.2H, Eosinophils (%) (Auto) 4.3H, Basophils (%) (Auto) 0.8, Neutrophils # (Auto) 3.3, Lymphocytes # (Auto) 3.5, Monocytes # (Auto) 0.7, Eosinophils # (Auto) 0.3, Basophils # (Auto) 0.1, Immature Granulocyte # (Auto) 0.1H, Nucleated Red Blood Cells % (auto) 0.0, Anion Gap 7L, Glomerular Filtration Rate > 60.0, Blood Urea Nitrogen 25H, Creatinine 0.71, Sodium Level 139, Potassium Level 3.7, Chloride Level 105, Carbon Dioxide Level 27, Calcium Level 8.6L 07/12/17 11:48: Bedside Glucose (Misc Panel) 168H CBC/BMP Laboratory Tests 07/12/17 05:13 Red Blood Count 3.78 L, Mean Corpuscular Volume 87.3, Mean Corpuscular Hemoglobin 29.9, Mean Corpuscular Hemoglobin Concent 34.2, Red Cell Distribution Width 12.4, Neutrophils (%) (Auto) 41.4, Lymphocytes (%) (Auto) 44.2 H, Monocytes (%) (Auto) 8.2 H, Eosinophils (%) (Auto) 4.3 H, Basophils (%) (Auto) 0.8, Neutrophils # (Auto) 3.3, Lymphocytes # (Auto) 3.5, Monocytes # ( Auto) 0.7, Eosinophils # (Auto) 0.3, Basophils # (Auto) 0.1, Calcium Level 8.6 L Microbiology Microbiology 07/07/17 Blood Culture - Final, Complete NO GROWTH AFTER 5 DAYS 07/07/17 Blood Culture - Final, Complete NO GROWTH AFTER 5 DAYS 07/05/17 Blood Culture - Final, Complete Clostridium Perfringens 07/05/17 Influenza Virus Type A Antigen - Final, Complete 07/05/17 Influenza Virus Type B Antigen - Final, Complete 07/05/17 Urine Culture - Final, Complete GME ATTESTATION GME ATTESTATION My faculty preceptor for this patient encounter was physically present during the encounter and was fully available. All aspects of the patient interview, examination, medical decision making process, and medical care plan development were reviewed and approved by the faculty preceptor. The faculty preceptor is aware and concurs with the plan as stated in the body of this note and will attest to such by his/her cosignature. ATTENDING NOTE I saw and examined Ms. Bethea this afternoon; I discussed her care with Dr. Roberson and I agree with his note above. Note that patient has a listed allergy to cephalosporins, but her reported allergic reaction is yeast infections, so she should be able to be discharged on Keflex per ID recommendations for her clostridium perfringens bacteremia. If stable on PO antibiotics overnight, consider discharge home tomorrow. (KES) EDIE ROBERSON DO Jul 12, 2017 16:44 YESSI MCARTHUR MD Jul 12, 2017 19:03
[2017-07-12] MEDS: ATORVASTATIN 20 MG TAB PO SCH (21:09)
[2017-07-12] MEDS: CEPHALEXIN 500 MG CAP PO SCH (21:09)
[2017-07-12] MEDS: LEVEMIR (INSULIN DETEMIR) 1 UNITS/0.01ML SC SCH (21:10)
[2017-07-13 04:00] VITALS: BP 98/55
[2017-07-13] MEDS: HEPARIN SOD (PORCINE) 5000 UNITS/ML VIAL SQ SCH (05:25)
[2017-07-13] MEDS: SLF 3 ML SYR IV SCH (05:25)
[2017-07-13] MEDS: LEVOTHYROXINE 88MCG TABLET (0.088 MG) PO SCH (05:25)
[2017-07-13] MEDS ORDERED: CEPH500C PO (07:40)
[2017-07-13 07:50] VITALS: BP 148/65
[2017-07-13 08:18] LABS: BASO # 0.1 10^3/uL (0.0-0.2); BASO % 1.5 % (0.0-1.0); EOS # 0.4 10^3/uL (0.0-0.50); EOS % 4.9 % (0.0-3.0); IMMATURE GRANULOCYTE % 1.6 % (0-0); LYMPH # 2.9 10^3/uL (1.5-4.5); LYMPH % 39.1 % (24.0-44.0); MEAN CORPUSCULAR HEMOGLOBIN 30.3 pg (27.0-33.0); MEAN CORPUSCULAR HGB CONC 34.1 g/dl (32.0-36.5); MEAN CORPUSCULAR VOLUME 88.7 fl (80.0-96.0); MONO # 0.5 10^3/uL (0.0-0.8); MONO % 6.5 % (0.0-5.0); NEUTROPHILS # 3.4 10^3/uL (1.8-7.7); NEUTROPHILS % 46.4 % (36.0-66.0); PLATELET COUNT, AUTOMATED 293 10^3/uL (150-450); RED CELL DISTRIBUTION WIDTH 12.5 % (11.5-14.5); WHITE BLOOD COUNT 7.3 10^3/uL (4.0-10.0)
[2017-07-13 08:29] LABS: ALBUMIN 3.3 GM/DL (3.2-5.2); ALKALINE PHOSPHATASE 88 U/L (45-117); ALT/SGPT 54 U/L (12-78); ANION GAP 5 MEQ/L (8-16); AST/SGOT 30 U/L (7-37); BILIRUBIN,TOTAL 0.4 MG/DL (0.2-1.0); BLOOD UREA NITROGEN 27 MG/DL (7-18); CALCIUM LEVEL 9.5 MG/DL (8.8-10.2); CARBON DIOXIDE LEVEL 30 MEQ/L (21-32); CHLORIDE LEVEL 104 MEQ/L (98-107); CREATININE FOR GFR 0.88 MG/DL (0.55-1.02); GLOMERULAR FILTRATION RATE > 60.0 (>45); GLUCOSE, FASTING 102 MG/DL (80-110); POTASSIUM SERUM 4.1 MEQ/L (3.5-5.1); SODIUM LEVEL 139 MEQ/L (136-145); TOTAL PROTEIN 7.4 GM/DL (6.4-8.2)
[2017-07-13] MEDS: GLIMEPIRIDE 2 MG TAB PO SCH (08:52)
[2017-07-13] MEDS: HumaLOG INSULIN (NovoLOG) PER UNIT SC SCH (08:52)
[2017-07-13] MEDS: ASPIRIN 81 MG CHEW TABLET PO SCH (08:53)
[2017-07-13] MEDS: FUROSEMIDE 40 MG TAB PO SCH (08:53)
[2017-07-13] MEDS: PANTOPRAZOLE 40MG TAB (PROTONIX) PO SCH (08:53)
[2017-07-13] MEDS: LISINOPRIL 5 MG TAB PO SCH (08:53)
[2017-07-13] MEDS: LACTIC ACID 12% LOTION 225 GM BTL TOP SCH (08:53)
[2017-07-13] MEDS: CEPHALEXIN 500 MG CAP PO SCH (08:53)
[2017-07-13] MEDS: NYSTATIN 100,000 UNITS/GM TOPICAL PWD 15 GM TOP SCH (08:54)
--- NOTE | 2017-07-13 11:00 | DSES ---
DATE OF ADMISSION: 07/05/2017 DATE OF DISCHARGE: 07/13/2017 ATTENDING PHYSICIAN: Dr. Bipin Myers. PRIMARY CARE PHYSICIAN: Dr. Brad Levine. HISTORY OF PRESENT ILLNESS: This is a 66-year-old female who presented to the emergency department with complaints of 1 week worth of generalized weakness associated with nausea and fatigue. Patient also admitted to approximately 12 pound weight loss in the last 2 months which is unintentional and some chronic low back pain. Patient was treated for a urinary tract infection one week prior to presentation, however, was completely asymptomatic other than some foul smelling occasionally. Patient was subsequently admitted with admitting diagnosis of atrial fibrillation with urinary tract infection, generalized weakness. HOSPITAL COURSE: Patient was admitted and placed on telemetry. Patient has a few runs of ventricular tachycardia however patient had electrolyte disturbances at that same time. Patient had no further episodes after electrolyte replacement. Echocardiogram was completed, proved mild aortic valvular sclerosis with mitral annular thickening. Mildly dilated left atrium but normal left ventricular size was noted. Ejection fraction of 50-55%. Patient's blood culture returned positive for Clostridium perfringens. Patient is status post infectious disease consult secondary to the positive blood culture. CT abdomen and pelvis was evaluated to rule out intra-abdominal pathology and it proved negative. It is recommended the patient have upper endoscopy and colonoscopy. Patient was switched to IV Invanz for the rest of her hospitalization and within the last 24 hours was switched over the Keflex. Infectious disease recommends patient continue Keflex until she is evaluated by Dr. Soliman. Telemetry has been uneventful for the last 24-48 hours. Electrolytes have stabilized. CBC is stable. Patient denies complaints today. On physical exam, blood pressure 148/65, oxygen saturation 99% on room air. Respiratory rate 18, heart rate 58. Patient was able to shower herself, bathe and dress herself this morning without difficulty. She has been anticipating to go home today. HEENT: Neck is supple without lymphadenopathy or jugular venous distention (JVD). Cardiovascular: Heart rate and rhythm are regular. Pulmonary: Lungs are clear. Abdomen: Soft and nontender. Bilateral lower extremities without any edema. Neuro: She is alert and oriented times three. Psych: Affect is flat however conversation is appropriate and congruent. Patient does maintain eye contact. ASSESSMENT: 1. Bacteremia secondary to Clostridium perfringens. 2. Paroxysmal atrial fibrillation. 3. Urinary tract infection. SECONDARY DIAGNOSES: 1. Coronary artery disease. 2. Congestive heart failure. 3. Diabetes. 4. Hypertension. 5. Hypothyroidism. PLAN: Patient will be discharged to home. She will followup with her primary care physician within the next 7 days. Activity is as tolerated. Diet is 2 gram sodium, carbohydrate consistent. MEDICATIONS: - cephalexin 500 mg one by mouth twice daily, she was given 2 weeks' worth until her evaluation with Dr. Soliman on 07/10/2017 - ammonium lactate one dose topically daily - aspirin 81 mg chewable daily - atorvastatin 80 mg daily - furosemide 40 mg daily - glimepiride 4 mg by mouth twice daily - Lantus 36 units subcutaneous daily at bedtime - levothyroxine sodium 88 mcg by mouth daily - lisinopril 5 mg daily - nitroglycerine as needed chest pain - tramadol 50 mg by mouth every 6 hours as needed for pain Patient is discharged in stable and satisfactory condition with no further questions at the time of discharge. [facility]
== END 2017-07-13 11:54 | disposition home or self-care (01) | DRG 872 ==
LOC: M ED 14:35 → M ED INP 22:02 → M PCU 23:32
PROVIDERS: ATTEND Family Medicine
DX: R78.81 Bacteremia (principal); I50.32 Chronic diastolic (congestive) heart failure; N39.0 Urinary tract infection, site not specified; I48.0 Paroxysmal atrial fibrillation; I25.10 Atherosclerotic heart disease of native coronary artery without angina pectoris; I25.2 Old myocardial infarction; E11.9 Type 2 diabetes mellitus without complications; I11.0 Hypertensive heart disease with heart failure; E03.9 Hypothyroidism, unspecified; Z96.651 Presence of right artificial knee joint; Z96.642 Presence of left artificial hip joint; Z95.5 Presence of coronary angioplasty implant and graft; Z88.0 Allergy status to penicillin; Z88.1 Allergy status to other antibiotic agents; Z88.2 Allergy status to sulfonamides; Z88.8 Allergy status to other drugs, medicaments and biological substances; Z79.82 Long term (current) use of aspirin; Z79.4 Long term (current) use of insulin; Z79.899 Other long term (current) drug therapy; Z91.14 Patient's other noncompliance with medication regimen; M54.5 Low back pain; B96.20 Unspecified Escherichia coli [E. coli] as the cause of diseases classified elsewhere

== ENCOUNTER 2017-08-02 08:36 | Day surgery (SDC) | payer MEDICARE ==
[~2017-08-02] VITALS: Ht 152.4 cm; Wt 94.3 kg
[~2017-08-02 08:36] MED LIST changes: +AMMO12CR4 TOP; +ASPI81CH PO; +ATOR80TA59 PO; +CEPH500C PO; +FLON1SPR; +INSULADS INJ; +MACR100C43 PO; +SYNT88TA2 PO; +TRAM50TA2 PO
[2017-08-02] MEDS ORDERED: NS 1,000 ML IV ONE (09:15)
[2017-08-02] MEDS ORDERED: PROPOFOL 500 MG/50 ML VIAL As Ordered ONE (09:20)
[2017-08-02] MEDS ORDERED: fentaNYL 100 MCG/2 ML INJECTION (J3010) As Ordered ONE (09:54)
[2017-08-02] MEDS ORDERED: LIDOCAINE 2% INJ 100 MG/5 ML SDV (FOR ANES.) As Ordered ONE (10:17)
[2017-08-02] MEDS ORDERED: ePHEDrine SULFATE 25 MG/5 ML(5MG/ML) SYRINGE As Ordered ONE (10:18)
--- NOTE | 2017-08-02 10:24 | ROOR ---
Patient Name: Barbara Bethea Procedure Date: 08/02/2017 10:05 AM Date of : 1950 Age: 66 Room: [facility] Gender: Female Note Status: Finalized Procedure: Upper Endoscopy + Biopsies Indications: Epigastric abdominal pain, Heartburn Providers: Jefferson Soliman MD Referring MD: Brad Levine MD Requesting Provider: Medicines: Monitored Anesthesia Care Complications: No immediate complications. Procedure: Pre-Anesthesia Assessment: - The heart rate, respiratory rate, oxygen saturations, blood pressure, adequacy of pulmonary ventilation, and response to care were monitored throughout the procedure. The Colonoscope was introduced through the anus and advanced to the second part of duodenum. The upper GI endoscopy was accomplished without difficulty. The patient tolerated the procedure well. Findings: The Z-line was variable and was found 35 cm from the incisors. Multiple biopsies were obtained with cold forceps for evaluation to rule out Arambula's Esophagus randomly at the gastroesophageal junction. A small hiatal hernia was present. No other significant abnormalities were identified in a careful examination of the stomach. The exam of the duodenum was otherwise normal. Impression: - Z-line variable, 35 cm from the incisors. - Small hiatal hernia. - Multiple biopsies were obtained at the gastroesophageal junction. - The examination was otherwise normal. Recommendation: - Patient has a contact number available for emergencies. The signs and symptoms of potential delayed complications were discussed with the patient. Return to normal activities tomorrow. Written discharge instructions were provided to the patient. - Discharge patient to home. - Follow an antireflux regimen. - Continue present medications. - Await pathology results. - Telephone GI clinic for pathology results in 1 week. - Return to referring physician. - The findings and recommendations were discussed with the patient's family. Jefferson Soliman MD Jefferson Soliman MD 08/02/2017 10:24:06 AM This report has been signed electronically. Number of Addenda: 0 Note Initiated On: 08/02/2017 10:05 AM Estimated Blood Loss: Estimated blood loss: none.
--- NOTE | 2017-08-02 10:42 | ROOR ---
Patient Name: Barbara Bethea Procedure Date: 08/02/2017 10:04 AM Date of : 1950 Age: 66 Room: [facility] Gender: Female Note Status: Finalized Procedure: Total Colonoscopy to Cecum + Cold Snare Polypectomy + Hemoclips Indications: Screening for colorectal malignant neoplasm Providers: Jefferson Soliman MD Referring MD: Brad Levine MD Requesting Provider: Medicines: Monitored Anesthesia Care Complications: No immediate complications. Procedure: Pre-Anesthesia Assessment: - The heart rate, respiratory rate, oxygen saturations, blood pressure, adequacy of pulmonary ventilation, and response to care were monitored throughout the procedure. The Endoscope was introduced through the mouth, and advanced to the cecum, identified by appendiceal orifice and ileocecal valve. The colonoscopy was performed without difficulty. The patient tolerated the procedure well. The quality of the bowel preparation was [Prep Quality]. Findings: The perianal and digital rectal examinations were normal. Non-bleeding internal hemorrhoids were found during retroflexion. The hemorrhoids were medium-sized and Grade I (internal hemorrhoids that do not prolapse). Multiple small and large-mouthed diverticula were found in the recto-sigmoid colon, sigmoid colon and descending colon. A diminutive polyp was found in the hepatic flexure. The polyp was sessile. The polyp was removed with a jumbo cold forceps. Resection and retrieval were complete. Two pedunculated polyps were found at 50 cm proximal to the anus. The polyps were large in size. These polyps were removed with a cold snare. Resection and retrieval were complete. To prevent bleeding after the polypectomy, two hemostatic clips were successfully placed (MR conditional). There was no bleeding at the end of the procedure. The exam was otherwise without abnormality on direct and retroflexion views. Impression: - Non-bleeding internal hemorrhoids. - Diverticulosis in the recto-sigmoid colon, in the sigmoid colon and in the descending colon. - One diminutive polyp at the hepatic flexure, removed with a jumbo cold forceps. Resected and retrieved. - Two large polyps at 50 cm proximal to the anus, removed with a cold snare. Resected and retrieved. Clips (MR conditional) were placed. - The examination was otherwise normal on direct and retroflexion views. - The exam was otherwise normal to the cecum. Recommendation: - Patient has a contact number available for emergencies. The signs and symptoms of potential delayed complications were discussed with the patient. Return to normal activities tomorrow. Written discharge instructions were provided to the patient. - High fiber diet. - Discharge patient to home. - Continue present medications. - Await pathology results. - Telephone GI clinic for pathology results in 1 week. - Repeat colonoscopy for surveillance based on pathology results. - Return to referring physician. - The findings and recommendations were discussed with the patient's family. Jefferson Soliman MD Jefferson Soliman MD 08/02/2017 10:41:56 AM This report has been signed electronically. Number of Addenda: 0 Note Initiated On: 08/02/2017 10:04 AM Estimated Blood Loss: Estimated blood loss: none.
[2017-08-02 11:07] VITALS: BP 140/71
== END 2017-08-02 11:11 | disposition home or self-care (01) ==
LOC: M OPP 08:36
PROVIDERS: ATTEND Internal Medicine Gastroenterology
DX: Z12.11 Encounter for screening for malignant neoplasm of colon (principal); D12.3 Benign neoplasm of transverse colon; D12.5 Benign neoplasm of sigmoid colon; K57.30 Diverticulosis of large intestine without perforation or abscess without bleeding; K64.0 First degree hemorrhoids; R10.13 Epigastric pain; R89.9 Unspecified abnormal finding in specimens from other organs, systems and tissues; R12 Heartburn; K22.8 Other specified diseases of esophagus; K44.9 Diaphragmatic hernia without obstruction or gangrene; I11.0 Hypertensive heart disease with heart failure; E78.5 Hyperlipidemia, unspecified; Z95.5 Presence of coronary angioplasty implant and graft; R00.8 Other abnormalities of heart beat; I25.2 Old myocardial infarction; I50.9 Heart failure, unspecified; E11.9 Type 2 diabetes mellitus without complications; E03.9 Hypothyroidism, unspecified; M19.90 Unspecified osteoarthritis, unspecified site; Z78.0 Asymptomatic menopausal state; G47.8 Other sleep disorders; G47.30 Sleep apnea, unspecified; R06.83 Snoring; Z87.440 Personal history of urinary (tract) infections; Z88.1 Allergy status to other antibiotic agents; Z88.3 Allergy status to other anti-infective agents; Z88.8 Allergy status to other drugs, medicaments and biological substances; Z88.0 Allergy status to penicillin; Z88.2 Allergy status to sulfonamides; Z79.82 Long term (current) use of aspirin; Z79.4 Long term (current) use of insulin; Z79.2 Long term (current) use of antibiotics; Z79.899 Other long term (current) drug therapy
CPT/HCPCS: 43239; 45380; 45385; 88305; J3010

== ENCOUNTER 2017-09-10 12:30 | Inpatient (IN) | payer MEDICARE ==
[2017-09-10 15:48] LABS: BEDSIDE GLUCOSE 157 MG/DL (80-115)
[2017-09-10 16:26] LABS: BASO # 0.1 10^3/uL (0.0-0.2); BASO % 0.6 % (0.0-1.0); EOS # 0.1 10^3/uL (0.0-0.50); EOS % 0.6 % (0.0-3.0); HEMATOCRIT 35.6 % (36.0-47.0); IMMATURE GRANULOCYTE % 0.2 % (0-0); LYMPH # 2.2 10^3/uL (1.5-4.5); LYMPH % 27.3 % (24.0-44.0); MEAN CORPUSCULAR HEMOGLOBIN 29.6 pg (27.0-33.0); MEAN CORPUSCULAR HGB CONC 33.7 g/dl (32.0-36.5); MEAN CORPUSCULAR VOLUME 87.7 fl (80.0-96.0); MONO # 0.6 10^3/uL (0.0-0.8); MONO % 7.1 % (0.0-5.0); NEUTROPHILS # 5.2 10^3/uL (1.8-7.7); NEUTROPHILS % 64.2 % (36.0-66.0); PLATELET COUNT, AUTOMATED 225 10^3/uL (150-450); RED BLOOD COUNT 4.06 10^6/uL (4.00-5.40); RED CELL DISTRIBUTION WIDTH 12.8 % (11.5-14.5); WHITE BLOOD COUNT 8.2 10^3/uL (4.0-10.0)
[2017-09-10 16:38] LABS: INR 0.94; PROTHROMBIN TIME 12.7 SECONDS (12.4-14.5)
[2017-09-10 16:57] LABS: ALBUMIN 3.7 GM/DL (3.2-5.2); ALBUMIN/GLOBULIN RATIO 1.06 (1.00-1.93); ALKALINE PHOSPHATASE 79 U/L (45-117); ALT/SGPT 23 U/L (12-78); ANION GAP 8 MEQ/L (8-16); AST/SGOT 13 U/L (7-37); BILIRUBIN,DIRECT 0.1 MG/DL (0.0-0.2); BILIRUBIN,TOTAL 0.6 MG/DL (0.2-1.0); BLOOD UREA NITROGEN 17 MG/DL (7-18); CARBON DIOXIDE LEVEL 27 MEQ/L (21-32); CHLORIDE LEVEL 103 MEQ/L (98-107); CPK CREATINE PHOSPHOKINASE 64 U/L (26-192); CREATININE FOR GFR 0.76 MG/DL (0.55-1.02); GLOMERULAR FILTRATION RATE > 60.0 (>45); GLUCOSE, FASTING 162 MG/DL (80-110); LIPASE 93 U/L (73-393); MAGNESIUM LEVEL 2.4 MG/DL (1.8-2.4); MB/CK RELATIVE INDEX 1.56 (< OR =4); POTASSIUM SERUM 4.6 MEQ/L (3.5-5.1); SODIUM LEVEL 138 MEQ/L (136-145); TOTAL PROTEIN 7.2 GM/DL (6.4-8.2); TROPONIN I < 0.02 NG/ML (< 0.10)
[2017-09-10] MEDS: SODIUM CHLORIDE 0.9% 1000 ML IV (17:00)
[2017-09-10 18:21] LABS: C REACTIVE PROTEIN QUANTITATIV 0.43 MG/DL (0.00-0.30)
[2017-09-10 18:32] LABS: LACTIC ACID SEPSIS PROTOCOL 1.9 MMOL/L (0.4-2.0)
[2017-09-10] MEDS: PANTOPRAZOLE 40MG INJ (PROTONIX) (C9113) IV (18:40)
[2017-09-10] MEDS: ACETAMINOPHEN TAB 650MG DOSE (2X325MG) PO (18:41)
[2017-09-10 18:58] LABS: NT-PRO BNP 1323 PG/ML (<125)
[2017-09-10 18:59] LABS: ERYTHROCYTE SEDIMENTATION RATE 37 mm/hr (0-30)
[2017-09-10] MEDS ORDERED: GLUCOSE 4 GM CHEW TABLET PO (19:45)
[2017-09-10] MEDS ORDERED: LACTIC ACID 12% LOTION 225 GM BTL TOP (19:45)
[2017-09-10] MEDS ORDERED: FLUTICASONE PROP 0.05% NASAL SPRAY 16 GM (FLONASE) (19:45)
[2017-09-10] MEDS ORDERED: DEXTROSE 50% 50 ML SYRINGE IV (19:45)
[2017-09-10] MEDS ORDERED: GLUCAGON FOR INJ 1 MG VIAL (J1610) SC (19:45)
[2017-09-10] MEDS ORDERED: ISOVUE-370 76% 100ML VIAL (Q9967) As Ordered (20:38)
[2017-09-10] MEDS ORDERED: ENOXAPARIN 100MG/1ML SYRINGE (J1650) SC (21:00)
[2017-09-10] MEDS: HumaLOG INSULIN (NovoLOG) PER UNIT SC (21:00)
[2017-09-10] MEDS ORDERED: HEPARIN SOD (PORCINE) 5000 UNITS/ML VIAL SC (22:00)
[2017-09-10 22:34] LABS: BEDSIDE GLUCOSE 143 MG/DL (80-115)
[2017-09-10] MEDS: ATROPINE SULF 0.4 MG/ML 1ML VIAL (J0461) IV (22:40)
[2017-09-10] MEDS: LISINOPRIL 5 MG TAB PO (22:55)
[2017-09-10] MEDS: LEVEMIR (INSULIN DETEMIR) 1 UNITS/0.01ML SC (22:56)
[2017-09-10] MEDS: NS 1,000 ML IV (22:56)
[2017-09-10] MEDS ORDERED: HEPARIN SOD (PORCINE) 5000 UNITS/ML VIAL IV (23:00)
[2017-09-10 23:06] LABS: PARTIAL THROMBOPLASTIN TIME 25.2 SECONDS (26.8-37.9)
[2017-09-10 23:17] LABS: CK-MB VALUE MASS 1.1 NG/ML (0.0-3.6); CPK CREATINE PHOSPHOKINASE 62 U/L (26-192); MB/CK RELATIVE INDEX 1.77 (< OR =4); TROPONIN I < 0.02 NG/ML (< 0.10)
[2017-09-11] MEDS: HEPARIN DRIP 25,000 UNITS in APPROPRIATE DILUENT 1 EA IV ×2 (00:40→17:04)
[2017-09-11 06:23] LABS: HEMATOCRIT 34.9 % (36.0-47.0); HEMOGLOBIN 11.4 g/dl (12.0-16.0); MEAN CORPUSCULAR HEMOGLOBIN 29.7 pg (27.0-33.0); MEAN CORPUSCULAR HGB CONC 32.7 g/dl (32.0-36.5); MEAN CORPUSCULAR VOLUME 90.9 fl (80.0-96.0); PLATELET COUNT, AUTOMATED 293 10^3/uL (150-450); RED BLOOD COUNT 3.84 10^6/uL (4.00-5.40); RED CELL DISTRIBUTION WIDTH 13.7 % (11.5-14.5)
[2017-09-11 06:32] LABS: ADD MANUAL DIFFER YES; DIFF SLIDE NUMBER 76; POSITIVE DIFF POS FLAG; WHITE BLOOD COUNT 14.5 10^3/uL (4.0-10.0)
[2017-09-11] MEDS: NS 1,000 ML IV (06:33)
[2017-09-11] MEDS: LEVOTHYROXINE 88MCG TABLET (0.088 MG) PO (06:33)
[2017-09-11 06:34] LABS: INR 1.02; PROTHROMBIN TIME 13.5 SECONDS (12.4-14.5)
[2017-09-11 06:35] LABS: PARTIAL THROMBOPLASTIN TIME 57.2 SECONDS (26.8-37.9)
[2017-09-11 06:42] LABS: ANION GAP 7 MEQ/L (8-16); BLOOD UREA NITROGEN 13 MG/DL (7-18); CALCIUM LEVEL 8.4 MG/DL (8.8-10.2); CARBON DIOXIDE LEVEL 27 MEQ/L (21-32); CHLORIDE LEVEL 106 MEQ/L (98-107); CHOLESTEROL LEVEL 217 MG/DL (<200); CHOLESTEROL RISK RATIO 5.425 (<5); CK-MB VALUE MASS 1.1 NG/ML (0.0-3.6); CPK CREATINE PHOSPHOKINASE 63 U/L (26-192); GLOMERULAR FILTRATION RATE > 60.0 (>45); GLUCOSE, FASTING 130 MG/DL (80-110); HDL CHOLESTEROL 40 MG/DL (>40); LDL CHOLESTEROL 151.6 MG/DL (<100); MB/CK RELATIVE INDEX 1.74 (< OR =4); NON-HDL-C 177 MG/DL; POTASSIUM SERUM 3.6 MEQ/L (3.5-5.1); SODIUM LEVEL 140 MEQ/L (136-145); TRIGLYCERIDES LEVEL 127 MG/DL (<150); TROPONIN I < 0.02 NG/ML (< 0.10)
[2017-09-11 07:09] LABS: BASOPHILS 1 % (0-4); LYMPHOCYTES 37 % (16-52); MONOCYTES 8 % (0-8); NEUTROPHILS 54 % (35-75)
[2017-09-11 07:10] LABS: HYPOCHROMASIA 1+; PLATELET ESTIMATE INCREASED (NORMAL)
[2017-09-11] MEDS: ONDANSETRON 4MG/2ML VIAL (J2405) IV (07:40)
[2017-09-11] MEDS: HumaLOG INSULIN (NovoLOG) PER UNIT SC ×4 (07:41→20:58)
[2017-09-11] MEDS: LEVEMIR (INSULIN DETEMIR) 1 UNITS/0.01ML SC ×2 (09:56→20:58)
[2017-09-11] MEDS: ASPIRIN 81 MG CHEW TABLET PO (09:56)
[2017-09-11] MEDS: OMEPRAZOLE 20 MG CAP PO (09:57)
[2017-09-11 11:49] LABS: BEDSIDE GLUCOSE 160 MG/DL (80-115)
[2017-09-11] MEDS: ROSUVASTATIN 10 MG TAB (CRESTOR) PO (13:00)
[2017-09-11 14:16] LABS: PARTIAL THROMBOPLASTIN TIME 89.3 SECONDS (26.8-37.9)
[2017-09-11] MEDS ORDERED: PROHANCE 279.3MG/ML 15ML VIAL (A9576) As Ordered (14:47)
[2017-09-11 16:59] LABS: BEDSIDE GLUCOSE 119 MG/DL (80-115)
[2017-09-11] MEDS: PANTOPRAZOLE 40MG INJ (PROTONIX) (C9113) IV (18:20)
[2017-09-11 20:12] LABS: BEDSIDE GLUCOSE 146 MG/DL (80-115)
[2017-09-11 20:31] LABS: PARTIAL THROMBOPLASTIN TIME 95.7 SECONDS (26.8-37.9)
[2017-09-12 04:38] LABS: BASO # 0.1 10^3/uL (0.0-0.2); BASO % 0.7 % (0.0-1.0); EOS # 0.3 10^3/uL (0.0-0.50); EOS % 4.7 % (0.0-3.0); HEMATOCRIT 32.8 % (36.0-47.0); HEMOGLOBIN 11.2 g/dl (12.0-16.0); IMMATURE GRANULOCYTE % 0.1 % (0-0); LYMPH # 2.5 10^3/uL (1.5-4.5); LYMPH % 35.9 % (24.0-44.0); MEAN CORPUSCULAR HEMOGLOBIN 29.7 pg (27.0-33.0); MEAN CORPUSCULAR HGB CONC 34.1 g/dl (32.0-36.5); MONO # 0.6 10^3/uL (0.0-0.8); MONO % 8.8 % (0.0-5.0); NEUTROPHILS # 3.5 10^3/uL (1.8-7.7); NEUTROPHILS % 49.8 % (36.0-66.0); PLATELET COUNT, AUTOMATED 202 10^3/uL (150-450); RED BLOOD COUNT 3.77 10^6/uL (4.00-5.40); RED CELL DISTRIBUTION WIDTH 12.5 % (11.5-14.5)
[2017-09-12 04:49] LABS: INR 1.03; PROTHROMBIN TIME 13.6 SECONDS (12.4-14.5)
[2017-09-12 04:57] LABS: ANION GAP 9 MEQ/L (8-16); BLOOD UREA NITROGEN 17 MG/DL (7-18); CALCIUM LEVEL 8.2 MG/DL (8.8-10.2); CARBON DIOXIDE LEVEL 25 MEQ/L (21-32); CHLORIDE LEVEL 107 MEQ/L (98-107); CREATININE FOR GFR 0.73 MG/DL (0.55-1.02); GLOMERULAR FILTRATION RATE > 60.0 (>45); GLUCOSE, FASTING 142 MG/DL (80-110); POTASSIUM SERUM 3.5 MEQ/L (3.5-5.1); SODIUM LEVEL 141 MEQ/L (136-145)
[2017-09-12 06:00] LABS: PARTIAL THROMBOPLASTIN TIME 123.6 SECONDS (26.8-37.9)
[2017-09-12] MEDS: LEVOTHYROXINE 88MCG TABLET (0.088 MG) PO (06:28)
[2017-09-12] MEDS: HEPARIN DRIP 25,000 UNITS in APPROPRIATE DILUENT 1 EA IV (07:28)
[2017-09-12] MEDS: HumaLOG INSULIN (NovoLOG) PER UNIT SC ×4 (07:29→20:32)
[2017-09-12] MEDS: LEVEMIR (INSULIN DETEMIR) 1 UNITS/0.01ML SC ×2 (08:47→20:41)
[2017-09-12] MEDS: OMEPRAZOLE 20 MG CAP PO (08:47)
[2017-09-12] MEDS: ROSUVASTATIN 10 MG TAB (CRESTOR) PO (08:48)
[2017-09-12] MEDS: ASPIRIN 81 MG CHEW TABLET PO (08:48)
[2017-09-12 12:05] LABS: BEDSIDE GLUCOSE 203 MG/DL (80-115)
[2017-09-12 16:48] LABS: BEDSIDE GLUCOSE 164 MG/DL (80-115)
[2017-09-12] MEDS: PANTOPRAZOLE 40MG INJ (PROTONIX) (C9113) IV (17:05)
[2017-09-12 19:25] LABS: PARTIAL THROMBOPLASTIN TIME 73.5 SECONDS (26.8-37.9)
[2017-09-12 20:37] LABS: BEDSIDE GLUCOSE 197 MG/DL (80-115)
[2017-09-13] MEDS: ACETAMINOPHEN TAB 650MG DOSE (2X325MG) PO ×2 (00:54→11:05)
[2017-09-13] MEDS: HEPARIN DRIP 25,000 UNITS in APPROPRIATE DILUENT 1 EA IV (02:42)
[2017-09-13] MEDS: LEVOTHYROXINE 88MCG TABLET (0.088 MG) PO (05:52)
[2017-09-13 07:26] LABS: BASO # 0.1 10^3/uL (0.0-0.2); BASO % 1.1 % (0.0-1.0); EOS # 0.3 10^3/uL (0.0-0.50); EOS % 4.2 % (0.0-3.0); HEMATOCRIT 36.1 % (36.0-47.0); HEMOGLOBIN 12.4 g/dl (12.0-16.0); IMMATURE GRANULOCYTE % 0.4 % (0-0); LYMPH # 2.7 10^3/uL (1.5-4.5); LYMPH % 36.8 % (24.0-44.0); MEAN CORPUSCULAR HEMOGLOBIN 29.5 pg (27.0-33.0); MEAN CORPUSCULAR HGB CONC 34.3 g/dl (32.0-36.5); MONO # 0.5 10^3/uL (0.0-0.8); MONO % 6.2 % (0.0-5.0); NEUTROPHILS # 3.8 10^3/uL (1.8-7.7); NEUTROPHILS % 51.3 % (36.0-66.0); PLATELET COUNT, AUTOMATED 224 10^3/uL (150-450); RED CELL DISTRIBUTION WIDTH 12.7 % (11.5-14.5); WHITE BLOOD COUNT 7.4 10^3/uL (4.0-10.0)
[2017-09-13 07:44] LABS: PROTHROMBIN TIME 13.3 SECONDS (12.4-14.5)
[2017-09-13 07:45] LABS: PARTIAL THROMBOPLASTIN TIME 80.7 SECONDS (26.8-37.9)
[2017-09-13] MEDS: HumaLOG INSULIN (NovoLOG) PER UNIT SC ×4 (07:47→20:38)
[2017-09-13 07:49] LABS: ANION GAP 7 MEQ/L (8-16); BLOOD UREA NITROGEN 14 MG/DL (7-18); CALCIUM LEVEL 8.7 MG/DL (8.8-10.2); CARBON DIOXIDE LEVEL 27 MEQ/L (21-32); CHLORIDE LEVEL 104 MEQ/L (98-107); CREATININE FOR GFR 0.83 MG/DL (0.55-1.02); GLOMERULAR FILTRATION RATE > 60.0 (>45); GLUCOSE, FASTING 191 MG/DL (80-110); SODIUM LEVEL 138 MEQ/L (136-145)
[2017-09-13 07:49] LABS: BEDSIDE GLUCOSE 187 MG/DL (80-115)
[2017-09-13] MEDS: LEVEMIR (INSULIN DETEMIR) 1 UNITS/0.01ML SC ×2 (08:25→20:46)
[2017-09-13] MEDS: ASPIRIN 81 MG CHEW TABLET PO (08:25)
[2017-09-13] MEDS: ROSUVASTATIN 10 MG TAB (CRESTOR) PO (08:25)
[2017-09-13] MEDS: OMEPRAZOLE 20 MG CAP PO (08:25)
[2017-09-13 11:44] LABS: BEDSIDE GLUCOSE 246 MG/DL (80-115)
[2017-09-13 17:15] LABS: BEDSIDE GLUCOSE 206 MG/DL (80-115)
[2017-09-13 20:28] LABS: BEDSIDE GLUCOSE 191 MG/DL (80-115)
[2017-09-13] MEDS: APIXABAN 5 MG TAB (ELIQUIS) PO (20:45)
[2017-09-14] MEDS: ACETAMINOPHEN TAB 650MG DOSE (2X325MG) PO (05:46)
[2017-09-14] MEDS: LEVOTHYROXINE 88MCG TABLET (0.088 MG) PO (05:47)
[2017-09-14 06:09] LABS: BASO # 0.1 10^3/uL (0.0-0.2); BASO % 0.8 % (0.0-1.0); EOS # 0.3 10^3/uL (0.0-0.50); EOS % 4.7 % (0.0-3.0); HEMATOCRIT 32.1 % (36.0-47.0); HEMOGLOBIN 11.1 g/dl (12.0-16.0); IMMATURE GRANULOCYTE % 0.4 % (0-0); LYMPH % 27.2 % (24.0-44.0); MEAN CORPUSCULAR HEMOGLOBIN 29.5 pg (27.0-33.0); MEAN CORPUSCULAR HGB CONC 34.6 g/dl (32.0-36.5); MEAN CORPUSCULAR VOLUME 85.4 fl (80.0-96.0); MONO # 0.6 10^3/uL (0.0-0.8); MONO % 8.6 % (0.0-5.0); NEUTROPHILS # 4.2 10^3/uL (1.8-7.7); NEUTROPHILS % 58.3 % (36.0-66.0); PLATELET COUNT, AUTOMATED 198 10^3/uL (150-450); RED BLOOD COUNT 3.76 10^6/uL (4.00-5.40); RED CELL DISTRIBUTION WIDTH 12.5 % (11.5-14.5); WHITE BLOOD COUNT 7.2 10^3/uL (4.0-10.0)
[2017-09-14 06:20] LABS: PARTIAL THROMBOPLASTIN TIME 29.3 SECONDS (26.8-37.9)
[2017-09-14 06:42] LABS: ALBUMIN 2.8 GM/DL (3.2-5.2); ALBUMIN/GLOBULIN RATIO 0.78 (1.00-1.93); ALKALINE PHOSPHATASE 62 U/L (45-117); ALT/SGPT 16 U/L (12-78); ANION GAP 8 MEQ/L (8-16); AST/SGOT 9 U/L (7-37); BILIRUBIN,TOTAL 0.5 MG/DL (0.2-1.0); BLOOD UREA NITROGEN 13 MG/DL (7-18); CALCIUM LEVEL 8.6 MG/DL (8.8-10.2); CARBON DIOXIDE LEVEL 26 MEQ/L (21-32); CHLORIDE LEVEL 103 MEQ/L (98-107); CREATININE FOR GFR 0.73 MG/DL (0.55-1.02); GLOMERULAR FILTRATION RATE > 60.0 (>45); GLUCOSE, FASTING 164 MG/DL (70-100); POTASSIUM SERUM 3.8 MEQ/L (3.5-5.1); SODIUM LEVEL 137 MEQ/L (136-145); TOTAL PROTEIN 6.4 GM/DL (6.4-8.2)
[2017-09-14] MEDS: HumaLOG INSULIN (NovoLOG) PER UNIT SC ×4 (08:21→21:00)
[2017-09-14] MEDS: PANTOPRAZOLE 40MG TAB (PROTONIX) PO (08:22)
[2017-09-14] MEDS: APIXABAN 5 MG TAB (ELIQUIS) PO ×2 (08:22→21:00)
[2017-09-14] MEDS: LEVEMIR (INSULIN DETEMIR) 1 UNITS/0.01ML SC ×2 (08:22→21:00)
[2017-09-14] MEDS: ROSUVASTATIN 10 MG TAB (CRESTOR) PO (08:22)
[2017-09-14] MEDS: ASPIRIN 81 MG CHEW TABLET PO (08:22)
[2017-09-14] MEDS: OMEPRAZOLE 20 MG CAP PO (08:22)
[2017-09-14 13:23] LABS: BEDSIDE GLUCOSE 162 MG/DL (80-115)
[2017-09-14 16:34] LABS: BEDSIDE GLUCOSE 187 MG/DL (80-115)
[2017-09-14 22:53] LABS: BEDSIDE GLUCOSE 204 MG/DL (80-115)
[2017-09-15] MEDS ORDERED: SLF 3 ML SYR IV (00:45)
[2017-09-15] MEDS: SLF 3 ML SYR IV ×2 (06:00→12:29)
[2017-09-15 06:30] LABS: BASO # 0.1 10^3/uL (0.0-0.2); BASO % 0.9 % (0.0-1.0); EOS # 0.3 10^3/uL (0.0-0.50); HEMATOCRIT 32.9 % (36.0-47.0); HEMOGLOBIN 11.3 g/dl (12.0-16.0); IMMATURE GRANULOCYTE % 0.4 % (0-0); LYMPH # 2.5 10^3/uL (1.5-4.5); LYMPH % 33.6 % (24.0-44.0); MEAN CORPUSCULAR HEMOGLOBIN 29.4 pg (27.0-33.0); MEAN CORPUSCULAR HGB CONC 34.3 g/dl (32.0-36.5); MEAN CORPUSCULAR VOLUME 85.7 fl (80.0-96.0); MONO # 0.7 10^3/uL (0.0-0.8); MONO % 9.8 % (0.0-5.0); NEUTROPHILS # 3.9 10^3/uL (1.8-7.7); NEUTROPHILS % 51.3 % (36.0-66.0); PLATELET COUNT, AUTOMATED 198 10^3/uL (150-450); RED BLOOD COUNT 3.84 10^6/uL (4.00-5.40); RED CELL DISTRIBUTION WIDTH 12.7 % (11.5-14.5); WHITE BLOOD COUNT 7.6 10^3/uL (4.0-10.0)
[2017-09-15] MEDS: LEVOTHYROXINE 88MCG TABLET (0.088 MG) PO (06:47)
[2017-09-15 06:55] LABS: ALBUMIN 2.8 GM/DL (3.2-5.2); ALKALINE PHOSPHATASE 59 U/L (45-117); ALT/SGPT 20 U/L (12-78); ANION GAP 6 MEQ/L (8-16); AST/SGOT 18 U/L (7-37); BILIRUBIN,TOTAL 0.4 MG/DL (0.2-1.0); BLOOD UREA NITROGEN 14 MG/DL (7-18); CALCIUM LEVEL 8.4 MG/DL (8.8-10.2); CARBON DIOXIDE LEVEL 25 MEQ/L (21-32); CHLORIDE LEVEL 104 MEQ/L (98-107); CREATININE FOR GFR 0.76 MG/DL (0.55-1.02); GLOMERULAR FILTRATION RATE > 60.0 (>45); GLUCOSE, FASTING 190 MG/DL (70-100); POTASSIUM SERUM 3.9 MEQ/L (3.5-5.1); SODIUM LEVEL 135 MEQ/L (136-145); TOTAL PROTEIN 6.3 GM/DL (6.4-8.2)
[2017-09-15] MEDS: OMEPRAZOLE 20 MG CAP PO (09:21)
[2017-09-15] MEDS: HumaLOG INSULIN (NovoLOG) PER UNIT SC ×2 (09:21→12:29)
[2017-09-15] MEDS: ROSUVASTATIN 10 MG TAB (CRESTOR) PO (09:21)
[2017-09-15] MEDS: PANTOPRAZOLE 40MG TAB (PROTONIX) PO (09:21)
[2017-09-15] MEDS: ASPIRIN 81 MG CHEW TABLET PO (09:21)
[2017-09-15] MEDS: APIXABAN 5 MG TAB (ELIQUIS) PO (09:21)
[2017-09-15] MEDS: LEVEMIR (INSULIN DETEMIR) 1 UNITS/0.01ML SC (09:22)
[2017-09-15 11:07] LABS: DRVV SCREEN 40.7 SEC
[2017-09-15 12:20] LABS: BEDSIDE GLUCOSE 212 MG/DL (80-115)
[2017-09-16 00:06] LABS: ANCA-ATYPICAL <1:20 titer (Neg:<1:20); ANTI THROMBIN 3 ANTIGEN IMMUNO 118 % (72-124); ANTI THROMBIN 3 FUNCT ACTIVITY 113 % (75-135); ANTINUCLEAR ANTIBODIES DIRECT Negative (Negative); CARDIOLIPIN IGA ANTIBODY <9 APL U/mL (0-11); CARDIOLIPIN IGG ANTIBODY <9 GPL U/mL (0-14); CARDIOLIPIN IGM ANTIBODY <9 MPL U/mL (0-12); CYTOPLASMIC NEUTROP AB ANCA-C <1:20 titer (Neg:<1:20); HOMOCYST(E)INE SERUM 10.3 umol/L (0.0-15.0); PERINUCLEAR AB ANCA-P <1:20 titer (Neg:<1:20); PROTEIN C ANTIGEN 111 % (60-150); PROTEIN S ANTIGEN FREE 142 % (57-157); PROTEIN S ANTIGEN TOTAL 111 % (60-150); SJOGREN'S ANTI SS-A <0.2 AI (0.0-0.9); SJOGREN'S ANTI SS-B <0.2 AI (0.0-0.9)
== END 2017-09-15 15:00 | disposition home health service (06) | DRG 65 ==
LOC: M ED 12:30 → M PCU 09-13 23:20 → M ED INP 20:25 → M ICU 23:51
PROVIDERS: Hospitalist
DX: I63.542 Cerebral infarction due to unspecified occlusion or stenosis of left cerebellar artery (principal); I50.32 Chronic diastolic (congestive) heart failure; Z68.41 Body mass index [BMI] 40.0-44.9, adult; I48.92 Unspecified atrial flutter; R11.2 Nausea with vomiting, unspecified; Q96.8 Other variants of Turner's syndrome; E11.9 Type 2 diabetes mellitus without complications; I11.0 Hypertensive heart disease with heart failure; I25.2 Old myocardial infarction; E78.5 Hyperlipidemia, unspecified; I45.10 Unspecified right bundle-branch block; E66.01 Morbid (severe) obesity due to excess calories; I48.0 Paroxysmal atrial fibrillation; R55 Syncope and collapse; I25.10 Atherosclerotic heart disease of native coronary artery without angina pectoris; M81.0 Age-related osteoporosis without current pathological fracture; Z88.2 Allergy status to sulfonamides; Z88.8 Allergy status to other drugs, medicaments and biological substances; Z88.0 Allergy status to penicillin; Z79.82 Long term (current) use of aspirin; Z79.4 Long term (current) use of insulin; Z79.899 Other long term (current) drug therapy; Z95.5 Presence of coronary angioplasty implant and graft

== ENCOUNTER 2017-10-18 10:05 | Day surgery (SDC) | payer MEDICARE ==
[2017-10-18] MEDS: OMEPRAZOLE 20 MG CAP PO ×2 (09:00)
[2017-10-18] MEDS: FLUTICASONE PROP 0.05% NASAL SPRAY 16 GM (FLONASE) ×2 (09:00)
[2017-10-18] MEDS: LR 1,000 ML IV ×4 (11:26→15:45)
[2017-10-18 11:48] LABS: BEDSIDE GLUCOSE 160 MG/DL (80-115)
[2017-10-18] MEDS ORDERED: MIDAZOLAM INJ 2 MG/2 ML VIAL (J2250) As Ordered ×2 (13:32)
[2017-10-18] MEDS ORDERED: fentaNYL 100 MCG/2 ML INJECTION (J3010) As Ordered ×2 (13:33)
[2017-10-18] MEDS ORDERED: ISOVUE-300 61% 50ML VIAL (Q9967) As Ordered ×2 (13:35)
[2017-10-18] MEDS ORDERED: LIDOCAINE 1% SDV INJ 30 ML VIAL As Ordered ×2 (13:35)
[2017-10-18] MEDS ORDERED: BACITRACIN PWD 50,000 UNITS VIAL As Ordered ×2 (13:36)
[2017-10-18] MEDS ORDERED: PROPOFOL 200 MG/20 ML VIAL As Ordered ×6 (14:14)
[2017-10-18] MEDS: AMIODARONE HCL 360 MG/200 ML PREMIXED BAG (NEXTERONE) As Ordered ×2 (14:48)
[2017-10-18] MEDS: AMIODARONE 150MG/3ML INJ (J0282) As Ordered ×2 (14:50)
[2017-10-18] MEDS: ceFAZolin 2 GM/D5W 50 ML IV BAG (J0690 PER 500MG) As Ordered ×2 (14:50)
[2017-10-18] MEDS ORDERED: ePHEDrine INJ 50 MG/ML VIAL As Ordered ×2 (15:10)
[2017-10-18] MEDS: fentaNYL 100 MCG/2 ML INJECTION (J3010) IV ×4 (15:52→16:18)
[2017-10-18] MEDS: PERCOCET 5MG/325MG TAB PO ×2 (16:09)
[2017-10-18 16:10] LABS: BEDSIDE GLUCOSE 85 MG/DL (80-115)
[2017-10-18] MEDS ORDERED: NITROGLYCERIN 0.4 MG SUBL TABLET SL ×2 (16:45)
[2017-10-18] MEDS: AMIODARONE 200 MG TAB (PACERONE) PO ×4 (16:48→21:53)
[2017-10-18] MEDS: ONDANSETRON 4MG/2ML VIAL (J2405) IV ×2 (16:49)
[2017-10-18] MEDS: METOCLOPRAMIDE INJ 10MG/2ML VIAL (J2765) IV ×2 (16:49)
[2017-10-18] MEDS ORDERED: SLF 3 ML SYR IV ×2 (18:00)
[2017-10-18 21:04] LABS: BEDSIDE GLUCOSE 249 MG/DL (80-115)
[2017-10-18] MEDS: ROSUVASTATIN 10 MG TAB (CRESTOR) PO ×2 (21:53)
[2017-10-18] MEDS: LISINOPRIL 5 MG TAB PO ×2 (21:54)
[2017-10-18] MEDS: SLF 3 ML SYR IV ×2 (21:54)
[2017-10-18] MEDS: LEVEMIR (INSULIN DETEMIR) 1 UNITS/0.01ML SC ×2 (21:54)
[2017-10-18] MEDS: CEFAZOLIN SOD 1 GM in APPROPRIATE DILUENT 1 EA IV (23:05)
[2017-10-18] MEDS: ACETAMINOPHEN TAB 650MG DOSE (2X325MG) PO ×2 (23:13)
[2017-10-19] MEDS: CEFAZOLIN SOD 1 GM in APPROPRIATE DILUENT 1 EA IV ×2 (05:54→13:36)
[2017-10-19] MEDS: LEVOTHYROXINE 88MCG TABLET (0.088 MG) PO ×2 (05:55)
[2017-10-19] MEDS: ACETAMINOPH W/CODEINE #3 TAB UD PO ×2 (05:55)
[2017-10-19] MEDS: SLF 3 ML SYR IV ×6 (06:00→20:48)
[2017-10-19 06:15] LABS: BEDSIDE GLUCOSE 96 MG/DL (80-115)
[2017-10-19] MEDS: AMIODARONE 200 MG TAB (PACERONE) PO ×8 (07:50→20:48)
[2017-10-19] MEDS: OMEPRAZOLE 20 MG CAP PO ×2 (07:50)
[2017-10-19] MEDS: FLUTICASONE PROP 0.05% NASAL SPRAY 16 GM (FLONASE) ×2 (09:00)
[2017-10-19] MEDS: GLIMEPIRIDE 2 MG TAB PO ×4 (09:01→17:29)
[2017-10-19] MEDS: ACETAMINOPHEN TAB 650MG DOSE (2X325MG) PO ×4 (09:41→17:29)
[2017-10-19 19:58] LABS: BEDSIDE GLUCOSE 213 MG/DL (80-115)
[2017-10-19] MEDS: ROSUVASTATIN 10 MG TAB (CRESTOR) PO ×2 (20:47)
[2017-10-19] MEDS: LEVEMIR (INSULIN DETEMIR) 1 UNITS/0.01ML SC ×2 (20:47)
[2017-10-19] MEDS: APIXABAN 5 MG TAB (ELIQUIS) PO ×2 (20:48)
[2017-10-19] MEDS: LISINOPRIL 5 MG TAB PO ×2 (20:51)
[2017-10-20] MEDS: ACETAMINOPH W/CODEINE #3 TAB UD PO ×2 (01:00)
[2017-10-20] MEDS: LEVOTHYROXINE 88MCG TABLET (0.088 MG) PO ×2 (05:29)
[2017-10-20] MEDS: SLF 3 ML SYR IV ×4 (05:30→14:00)
[2017-10-20 06:37] LABS: BEDSIDE GLUCOSE 226 MG/DL (80-115)
[2017-10-20] MEDS: APIXABAN 5 MG TAB (ELIQUIS) PO ×2 (08:24)
[2017-10-20] MEDS: OMEPRAZOLE 20 MG CAP PO ×2 (08:24)
[2017-10-20] MEDS: AMIODARONE 200 MG TAB (PACERONE) PO ×6 (08:25→16:25)
[2017-10-20] MEDS: GLIMEPIRIDE 2 MG TAB PO ×4 (08:25→16:25)
[2017-10-20] MEDS: FLUTICASONE PROP 0.05% NASAL SPRAY 16 GM (FLONASE) ×2 (08:26)
[2017-10-20] MEDS: ACETAMINOPHEN TAB 650MG DOSE (2X325MG) PO ×2 (15:38)
[2017-10-20] MEDS ORDERED: LEVEMIR (INSULIN DETEMIR) 1 UNITS/0.01ML SC ×2 (21:00)
== END 2017-10-20 17:30 | disposition home or self-care (01) ==
LOC: M SDC 10:05 → M PCU 16:56 → M SDC 10-20 17:30
DX: I44.30 Unspecified atrioventricular block (principal); I45.10 Unspecified right bundle-branch block; I48.92 Unspecified atrial flutter; I48.0 Paroxysmal atrial fibrillation; I49.5 Sick sinus syndrome; I50.32 Chronic diastolic (congestive) heart failure; I25.10 Atherosclerotic heart disease of native coronary artery without angina pectoris; I25.2 Old myocardial infarction; I11.0 Hypertensive heart disease with heart failure; I27.81 Cor pulmonale (chronic); E78.00 Pure hypercholesterolemia, unspecified; E10.9 Type 1 diabetes mellitus without complications; E03.9 Hypothyroidism, unspecified; K57.32 Diverticulitis of large intestine without perforation or abscess without bleeding; K21.9 Gastro-esophageal reflux disease without esophagitis; R42 Dizziness and giddiness; R06.02 Shortness of breath; M12.9 Arthropathy, unspecified; M85.80 Other specified disorders of bone density and structure, unspecified site; F41.9 Anxiety disorder, unspecified; F32.9 Major depressive disorder, single episode, unspecified; R51 Headache; I69.998 Other sequelae following unspecified cerebrovascular disease; R06.83 Snoring; G47.30 Sleep apnea, unspecified; T88.59XD Other complications of anesthesia, subsequent encounter; Z88.0 Allergy status to penicillin; Z88.1 Allergy status to other antibiotic agents; Z88.2 Allergy status to sulfonamides; Z88.8 Allergy status to other drugs, medicaments and biological substances; Z79.899 Other long term (current) drug therapy; Z79.4 Long term (current) use of insulin; Z79.01 Long term (current) use of anticoagulants; Z79.82 Long term (current) use of aspirin; Z78.0 Asymptomatic menopausal state
CPT/HCPCS: 33208

== ENCOUNTER 2017-11-25 21:16 | Emergency (ER) | payer MEDICARE ==
[2017-11-25 21:49] LABS: BEDSIDE GLUCOSE 367 MG/DL (80-115)
[2017-11-25] MEDS: LORazepam 2 MG/ML VIAL (J2060) IV (22:45)
[2017-11-25] MEDS: MECLIZINE 25 MG TABLET PO (22:45)
[2017-11-25] MEDS: NS 1,000 ML IV (22:45)
[2017-11-25 22:49] LABS: BASO # 0.1 10^3/uL (0.0-0.2); BASO % 0.7 % (0.0-1.0); EOS # 0.1 10^3/uL (0.0-0.50); EOS % 1.3 % (0.0-3.0); HEMATOCRIT 34.7 % (36.0-47.0); HEMOGLOBIN 11.9 g/dl (12.0-15.5); IMMATURE GRANULOCYTE % 0.4 % (0-3.0); LYMPH # 1.7 10^3/uL (1.5-4.5); LYMPH % 24.5 % (24.0-44.0); MEAN CORPUSCULAR HEMOGLOBIN 30.1 pg (27.0-33.0); MEAN CORPUSCULAR HGB CONC 34.3 g/dl (32.0-36.5); MEAN CORPUSCULAR VOLUME 87.6 fl (80.0-96.0); MONO # 0.6 10^3/uL (0.0-0.8); MONO % 8.1 % (0.0-5.0); NEUTROPHILS # 4.4 10^3/uL (1.8-7.7); PLATELET COUNT, AUTOMATED 183 10^3/uL (150-450); RED BLOOD COUNT 3.96 10^6/uL (4.00-5.40); RED CELL DISTRIBUTION WIDTH 13.3 % (11.5-14.5); WHITE BLOOD COUNT 6.8 10^3/uL (4.0-10.0)
[2017-11-25 23:03] LABS: ANION GAP 7 MEQ/L (8-16); BLOOD UREA NITROGEN 33 MG/DL (7-18); CALCIUM LEVEL 8.9 MG/DL (8.8-10.2); CARBON DIOXIDE LEVEL 28 MEQ/L (21-32); CHLORIDE LEVEL 101 MEQ/L (98-107); CK-MB VALUE MASS 1.5 NG/ML (<3.6); CPK CREATINE PHOSPHOKINASE 85 U/L (26-192); CREATININE FOR GFR 1.22 MG/DL (0.55-1.30); GLOMERULAR FILTRATION RATE 47.1 (>45); GLUCOSE, FASTING 354 MG/DL (70-100); MB/CK RELATIVE INDEX 1.76 (< OR =4); POTASSIUM SERUM 4.2 MEQ/L (3.5-5.1); SODIUM LEVEL 136 MEQ/L (136-145); TROPONIN I < 0.02 NG/ML (< 0.10)
[2017-11-25 23:20] LABS: INR 1.09; PROTHROMBIN TIME 14.2 SECONDS (12.4-14.5)
[2017-11-25 23:21] LABS: PARTIAL THROMBOPLASTIN TIME 31.6 SECONDS (26.8-37.9)
[2017-11-25 23:25] LABS: VENOUS BASE EXCESS -0.8 (-2.0-2.0); VENOUS HCO3 23.2 MEQ/L (23.0-27.0); VENOUS O2 SATURATION 99.1 % (60.0-80.0); VENOUS PARTIAL PRESSURE CO2 36.4 mmHg (38.0-50.0); VENOUS PARTIAL PRESSURE O2 172.1 mmHg (30.0-50.0); VENOUS PH 7.423 UNITS (7.330-7.430); VENOUS STANDARD HCO3 23.8 MEQ/L; VENOUS TOTAL CO2 24.4 MEQ/L (24.0-28.0)
[2017-11-25 23:26] LABS: OSMOLALITY SERUM 308 MOSM/KG (280-301)
== END 2017-11-26 01:24 | disposition home or self-care (01) ==
LOC: M ED 21:16
DX: R42 Dizziness and giddiness (principal); Z86.73 Personal history of transient ischemic attack (TIA), and cerebral infarction without residual deficits; Z79.899 Other long term (current) drug therapy; Z79.82 Long term (current) use of aspirin; Z79.890 Hormone replacement therapy; Z79.4 Long term (current) use of insulin; Z88.0 Allergy status to penicillin; Z88.2 Allergy status to sulfonamides; Z88.8 Allergy status to other drugs, medicaments and biological substances
CPT/HCPCS: J2060

== ENCOUNTER → 2017-12-08 | Outpatient (REF) | payer MEDICARE ==
[2017-12-08 13:30] LABS: ALBUMIN 3.7 GM/DL (3.2-5.2); ALBUMIN/GLOBULIN RATIO 1.03 (1.00-1.93); ALKALINE PHOSPHATASE 71 U/L (45-117); ALT/SGPT 28 U/L (12-78); ANION GAP 7 MEQ/L (8-16); AST/SGOT 17 U/L (7-37); BILIRUBIN,TOTAL 0.6 MG/DL (0.2-1.0); BLOOD UREA NITROGEN 25 MG/DL (7-18); CARBON DIOXIDE LEVEL 27 MEQ/L (21-32); CHLORIDE LEVEL 104 MEQ/L (98-107); CREATININE FOR GFR 0.94 MG/DL (0.55-1.30); GLOMERULAR FILTRATION RATE > 60.0 (>45); GLUCOSE, FASTING 142 MG/DL (70-100); POTASSIUM SERUM 4.5 MEQ/L (3.5-5.1); SODIUM LEVEL 138 MEQ/L (136-145); TOTAL PROTEIN 7.3 GM/DL (6.4-8.2)
== END ==
LOC: M LABDRAWC 11:36
DX: I50.32 Chronic diastolic (congestive) heart failure (principal)
CPT/HCPCS: 80053

== ENCOUNTER → 2018-03-08 | Outpatient (REF) | payer MEDICARE ==
[2018-03-08 11:24] LABS: BASO # 0.1 10^3/uL (0.0-0.2); BASO % 1.4 % (0.0-1.0); EOS # 0.1 10^3/uL (0.0-0.50); EOS % 2.7 % (0.0-3.0); HEMATOCRIT 34.8 % (36.0-47.0); HEMOGLOBIN 11.9 g/dl (12.0-15.5); IMMATURE GRANULOCYTE % 0.4 % (0-3.0); LYMPH # 1.6 10^3/uL (1.5-4.5); LYMPH % 30.7 % (24.0-44.0); MEAN CORPUSCULAR HEMOGLOBIN 30.6 pg (27.0-33.0); MEAN CORPUSCULAR HGB CONC 34.2 g/dl (32.0-36.5); MEAN CORPUSCULAR VOLUME 89.5 fl (80.0-96.0); MONO # 0.5 10^3/uL (0.0-0.8); MONO % 10.2 % (0.0-5.0); NEUTROPHILS # 2.8 10^3/uL (1.8-7.7); NEUTROPHILS % 54.6 % (36.0-66.0); PLATELET COUNT, AUTOMATED 196 10^3/uL (150-450); RED BLOOD COUNT 3.89 10^6/uL (4.00-5.40); RED CELL DISTRIBUTION WIDTH 12.5 % (11.5-14.5); WHITE BLOOD COUNT 5.1 10^3/uL (4.0-10.0)
[2018-03-08 11:55] LABS: ALBUMIN 3.4 GM/DL (3.2-5.2); ANION GAP 9 MEQ/L (8-16); BLOOD UREA NITROGEN 28 MG/DL (7-18); CALCIUM LEVEL 8.6 MG/DL (8.8-10.2); CARBON DIOXIDE LEVEL 28 MEQ/L (21-32); CHLORIDE LEVEL 102 MEQ/L (98-107); CREATININE FOR GFR 0.99 MG/DL (0.55-1.30); GLOMERULAR FILTRATION RATE 59.9 (>45); GLUCOSE, FASTING 210 MG/DL (70-100); PHOSPHORUS LEVEL 4.4 MG/DL (2.5-4.9); POTASSIUM SERUM 3.9 MEQ/L (3.5-5.1); SODIUM LEVEL 139 MEQ/L (136-145)
== END ==
LOC: M LABDRAWC 11:12
DX: I48.0 Paroxysmal atrial fibrillation (principal); I50.32 Chronic diastolic (congestive) heart failure
CPT/HCPCS: 84443

== ENCOUNTER → 2018-03-15 | Outpatient (CLI) | payer MEDICARE ==
[2018-03-15 08:57] LABS: BASO # 0.1 10^3/uL (0.0-0.2); EOS # 0.1 10^3/uL (0.0-0.50); EOS % 1.2 % (0.0-3.0); HEMATOCRIT 31.8 % (36.0-47.0); HEMOGLOBIN 10.7 g/dl (12.0-15.5); IMMATURE GRANULOCYTE % 0.3 % (0-3.0); LYMPH # 1.4 10^3/uL (1.5-4.5); LYMPH % 20.7 % (24.0-44.0); MEAN CORPUSCULAR HEMOGLOBIN 30.2 pg (27.0-33.0); MEAN CORPUSCULAR HGB CONC 33.6 g/dl (32.0-36.5); MEAN CORPUSCULAR VOLUME 89.8 fl (80.0-96.0); MONO # 0.6 10^3/uL (0.0-0.8); MONO % 9.1 % (0.0-5.0); NEUTROPHILS # 4.5 10^3/uL (1.8-7.7); NEUTROPHILS % 67.7 % (36.0-66.0); PLATELET COUNT, AUTOMATED 191 10^3/uL (150-450); RED BLOOD COUNT 3.54 10^6/uL (4.00-5.40); RED CELL DISTRIBUTION WIDTH 12.4 % (11.5-14.5); WHITE BLOOD COUNT 6.7 10^3/uL (4.0-10.0)
[2018-03-15 09:13] LABS: ESTIMATED AVERAGE GLUCOSE 243 MG/DL (60-110); HEMOGLOBIN A1c 10.1 %
[2018-03-15 09:31] LABS: ALBUMIN 3.1 GM/DL (3.2-5.2); ALBUMIN/GLOBULIN RATIO 0.86 (1.00-1.93); ALKALINE PHOSPHATASE 67 U/L (45-117); ALT/SGPT 26 U/L (12-78); ANION GAP 7 MEQ/L (8-16); AST/SGOT 14 U/L (7-37); BILIRUBIN,TOTAL 0.6 MG/DL (0.2-1.0); BLOOD UREA NITROGEN 22 MG/DL (7-18); CALCIUM LEVEL 8.3 MG/DL (8.8-10.2); CARBON DIOXIDE LEVEL 28 MEQ/L (21-32); CHLORIDE LEVEL 104 MEQ/L (98-107); CHOLESTEROL LEVEL 287 MG/DL (<200); CHOLESTEROL RISK RATIO 5.125 (<5); GLOMERULAR FILTRATION RATE > 60.0 (>45); GLUCOSE, FASTING 118 MG/DL (70-100); HDL CHOLESTEROL 56 MG/DL (>40); LDL CHOLESTEROL 205.4 MG/DL (<100); NON-HDL-C 231 MG/DL; POTASSIUM SERUM 3.8 MEQ/L (3.5-5.1); RHEUMATOID FACTOR QUANT < 10.0 IU/ML (<15.0); SODIUM LEVEL 139 MEQ/L (136-145); TOTAL PROTEIN 6.7 GM/DL (6.4-8.2); TRIGLYCERIDES LEVEL 128 MG/DL (<150)
[2018-03-15 10:14] LABS: DRVV SCREEN 74.8 SEC
[2018-03-15 10:17] LABS: ERYTHROCYTE SEDIMENTATION RATE 54 mm/hr (0-30)
[2018-03-15 10:31] LABS: PTT LUPUS TYPE ANTICOAG SCREEN 1.7 (0-1.2)
[2018-03-15 10:38] LABS: DRVV CONFIRM 68.8 SEC; LUPUS CONFIRM RATIO 1.8
[2018-03-15 10:39] LABS: NORMALIZED RATIO 0.94 (0.00-1.20)
[2018-03-17 15:06] LABS: ANTI DOUBLE STRAND-DNA AB <1 IU/mL (0-9); ANTI THROMBIN 3 ANTIGEN IMMUNO 92 % (72-124); ANTI THROMBIN 3 FUNCT ACTIVITY 166 % (75-135); ANTINUCLEAR ANTIBODIES DIRECT Negative (Negative); CARDIOLIPIN IGA ANTIBODY <9 APL U/mL (0-11); CARDIOLIPIN IGG ANTIBODY <9 GPL U/mL (0-14); CARDIOLIPIN IGM ANTIBODY <9 MPL U/mL (0-12); SJOGREN'S ANTI SS-A <0.2 AI (0.0-0.9); SJOGREN'S ANTI SS-B <0.2 AI (0.0-0.9)
== END ==
LOC: M LAB 08:05
DX: I63.9 Cerebral infarction, unspecified (principal); R42 Dizziness and giddiness
CPT/HCPCS: 84443

== ENCOUNTER → 2018-03-21 | Outpatient (CLI) | payer MEDICARE | LOC: M RAD 09:11 | DX: H90.3 Sensorineural hearing loss, bilateral (principal); H83.01 Labyrinthitis, right ear | CPT/HCPCS: 70480 ==

== ENCOUNTER → 2018-06-17 | Outpatient (REF) | payer MEDICARE ==
[2018-06-17 11:44] LABS: BASO # 0.1 10^3/uL (0.0-0.2); BASO % 1.1 % (0.0-1.0); EOS # 0.2 10^3/uL (0.0-0.50); HEMOGLOBIN 11.4 g/dl (12.0-15.5); IMMATURE GRANULOCYTE % 0.6 % (0-3.0); LYMPH # 1.4 10^3/uL (1.5-4.5); LYMPH % 26.6 % (24.0-44.0); MEAN CORPUSCULAR HEMOGLOBIN 30.2 pg (27.0-33.0); MEAN CORPUSCULAR HGB CONC 33.5 g/dl (32.0-36.5); MEAN CORPUSCULAR VOLUME 89.9 fl (80.0-96.0); MONO # 0.5 10^3/uL (0.0-0.8); MONO % 9.6 % (0.0-5.0); NEUTROPHILS # 3.1 10^3/uL (1.8-7.7); NEUTROPHILS % 59.1 % (36.0-66.0); PLATELET COUNT, AUTOMATED 231 10^3/uL (150-450); RED BLOOD COUNT 3.78 10^6/uL (4.00-5.40); RED CELL DISTRIBUTION WIDTH 13.2 % (11.5-14.5); WHITE BLOOD COUNT 5.3 10^3/uL (4.0-10.0)
[2018-06-17 16:39] LABS: ALBUMIN 3.3 GM/DL (3.2-5.2); ALBUMIN/GLOBULIN RATIO 0.85 (1.00-1.93); ALKALINE PHOSPHATASE 75 U/L (45-117); ALT/SGPT 38 U/L (12-78); ANION GAP 12 MEQ/L (8-16); AST/SGOT 20 U/L (7-37); BILIRUBIN,TOTAL 0.4 MG/DL (0.2-1.0); BLOOD UREA NITROGEN 32 MG/DL (7-18); CALCIUM LEVEL 8.5 MG/DL (8.8-10.2); CARBON DIOXIDE LEVEL 24 MEQ/L (21-32); CHLORIDE LEVEL 101 MEQ/L (98-107); CHOLESTEROL LEVEL 346 MG/DL (<200); CREATININE FOR GFR 1.04 MG/DL (0.55-1.30); GLOMERULAR FILTRATION RATE 56.6 (>45); GLUCOSE, FASTING 164 MG/DL (70-100); HDL CHOLESTEROL 50 MG/DL (>40); LDL CHOLESTEROL 263 MG/DL (<100); NON-HDL-C 296 MG/DL; POTASSIUM SERUM 4.7 MEQ/L (3.5-5.1); SODIUM LEVEL 137 MEQ/L (136-145); TOTAL PROTEIN 7.2 GM/DL (6.4-8.2); TRIGLYCERIDES LEVEL 163 MG/DL (<150)
== END ==
LOC: M LABDRAWC 08:44
DX: I48.0 Paroxysmal atrial fibrillation (principal); I25.10 Atherosclerotic heart disease of native coronary artery without angina pectoris; E03.9 Hypothyroidism, unspecified
CPT/HCPCS: 84443

== ENCOUNTER → 2018-07-18 | Outpatient (REF) | payer MEDICARE | LOC: M LAB REF 16:46 | DX: N39.0 Urinary tract infection, site not specified (principal) | CPT/HCPCS: 87186 ==

== ENCOUNTER 2018-07-22 16:26 | Emergency (ER) | payer MEDICARE ==
[2018-07-22 17:18] LABS: BEDSIDE GLUCOSE 234 MG/DL (80-115)
[2018-07-22 17:30] LABS: APPEARANCE, URINE CLEAR (CLEAR); BACTERIA, URINE AUTO 1+ (NEGATIVE); BILIRUBIN, URINE AUTO NEGATIVE (NEGATIVE); BLOOD, URINE BLOOD NEGATIVE (NEGATIVE); COLOR, URINE STRAW (YELLOW); GLUCOSE, URINE (UA) AUTO 3+ mg/dL (NEGATIVE); KETONE, URINE AUTO NEGATIVE (NEGATIVE); LEUKOCYTE ESTERASE, URINE AUTO NEGATIVE (NEGATIVE); MUCUS, URINE SMALL (NEGATIVE); NITRITE, URINE AUTO NEGATIVE (NEGATIVE); PROTEIN, URINE AUTO NEGATIVE (NEGATIVE); RBC, URINE AUTO 2 /HPF (0-3); SPECIFIC GRAVITY URINE AUTO 1.009 (1.002-1.035); SQUAMOUS EPITHELIAL CELL UR AU 0 /HPF (0-6); UROBILINOGEN, URINE AUTO 0.2 mg/dL (0.0-2.0); WBC, URINE AUTO 2 /HPF (0-3)
[2018-07-22 17:32] LABS: BASO # 0.1 10^3/uL (0.0-0.2); BASO % 0.6 % (0.0-1.0); EOS # 0.2 10^3/uL (0.0-0.50); EOS % 2.2 % (0.0-3.0); HEMATOCRIT 35.3 % (36.0-47.0); HEMOGLOBIN 11.5 g/dl (12.0-15.5); IMMATURE GRANULOCYTE % 0.7 % (0-3.0); LYMPH # 2.5 10^3/uL (1.5-4.5); LYMPH % 25.2 % (24.0-44.0); MEAN CORPUSCULAR HEMOGLOBIN 29.6 pg (27.0-33.0); MEAN CORPUSCULAR HGB CONC 32.6 g/dl (32.0-36.5); MEAN CORPUSCULAR VOLUME 90.7 fl (80.0-96.0); MONO # 0.8 10^3/uL (0.0-0.8); MONO % 7.7 % (0.0-5.0); NEUTROPHILS # 6.3 10^3/uL (1.8-7.7); NEUTROPHILS % 63.6 % (36.0-66.0); PLATELET COUNT, AUTOMATED 236 10^3/uL (150-450); RED BLOOD COUNT 3.89 10^6/uL (4.00-5.40); RED CELL DISTRIBUTION WIDTH 13.2 % (11.5-14.5); WHITE BLOOD COUNT 9.9 10^3/uL (4.0-10.0)
[2018-07-22 17:54] LABS: ALBUMIN 3.4 GM/DL (3.2-5.2); ALBUMIN/GLOBULIN RATIO 0.92 (1.00-1.93); ALKALINE PHOSPHATASE 69 U/L (45-117); ALT/SGPT 24 U/L (12-78); ANION GAP 10 MEQ/L (8-16); AST/SGOT 14 U/L (7-37); BILIRUBIN,DIRECT < 0.1 MG/DL (0.0-0.2); BILIRUBIN,TOTAL 0.3 MG/DL (0.2-1.0); BLOOD UREA NITROGEN 22 MG/DL (7-18); CALCIUM LEVEL 8.3 MG/DL (8.8-10.2); CARBON DIOXIDE LEVEL 26 MEQ/L (21-32); CHLORIDE LEVEL 102 MEQ/L (98-107); CPK CREATINE PHOSPHOKINASE 110 U/L (26-192); CREATININE FOR GFR 1.09 MG/DL (0.55-1.30); GLOMERULAR FILTRATION RATE 53.6 (>45); GLUCOSE, FASTING 216 MG/DL (70-100); MB/CK RELATIVE INDEX 2.18 (< OR =4); NT-PRO BNP 655 PG/ML (<125); POTASSIUM SERUM 4.1 MEQ/L (3.5-5.1); SODIUM LEVEL 138 MEQ/L (136-145); TOTAL PROTEIN 7.1 GM/DL (6.4-8.2); TROPONIN I 0.02 NG/ML (< 0.10)
== END 2018-07-22 19:07 | disposition home or self-care (01) ==
LOC: M ED 16:26
DX: N39.0 Urinary tract infection, site not specified (principal); A49.8 Other bacterial infections of unspecified site; R53.83 Other fatigue
CPT/HCPCS: 71046

== ENCOUNTER 2018-08-13 17:05 | Inpatient (IN) | payer MEDICARE ==
[2018-08-13] MEDS ORDERED: METAL LOCK LOOP XX (17:23)
[2018-08-13 17:59] LABS: BASO % 0.2 % (0.0-1.0); HEMATOCRIT 32.5 % (36.0-47.0); HEMOGLOBIN 10.9 g/dl (12.0-15.5); IMMATURE GRANULOCYTE % 0.7 % (0-3.0); LYMPH % 7.9 % (24.0-44.0); MEAN CORPUSCULAR HEMOGLOBIN 30.2 pg (27.0-33.0); MEAN CORPUSCULAR HGB CONC 33.5 g/dl (32.0-36.5); NEUTROPHILS % 83.2 % (36.0-66.0); PLATELET COUNT, AUTOMATED 211 10^3/uL (150-450); RED BLOOD COUNT 3.61 10^6/uL (4.00-5.40); WHITE BLOOD COUNT 12.1 10^3/uL (4.0-10.0)
[2018-08-13 18:05] LABS: ABG BASE EXCESS -0.4 (-2.0-2.0); ABG HCO3 22.5 MEQ/L (22.0-26.0); ABG O2 SATURATION 95.6 % (95.0-99.0); ABG PARTIAL PRESSURE CO2 31.1 mmHg (35.0-45.0); ABG PARTIAL PRESSURE O2 76.1 mmHg (75.0-100.0); ABG STANDARD HCO3 24.2 MEQ/L (22.0-26.0); ABG TOTAL CO2 23.5 MEQ/L (23.0-31.0); ABG pH (ARTERIAL) 7.478 UNITS (7.350-7.450)
[2018-08-13 18:09] LABS: INR 1.26
[2018-08-13 18:10] LABS: PARTIAL THROMBOPLASTIN TIME 31.3 SECONDS (25.4-37.6)
[2018-08-13 18:14] LABS: AMORPHOUS SEDIMENT SMALL (NEGATIVE); APPEARANCE, URINE CLOUDY (CLEAR); BACTERIA, URINE AUTO 2+ (NEGATIVE); BILIRUBIN, URINE AUTO NEGATIVE (NEGATIVE); BLOOD, URINE BLOOD 2+ (NEGATIVE); COLOR, URINE AMBER (YELLOW); GLUCOSE, URINE (UA) AUTO 1+ mg/dL (NEGATIVE); KETONE, URINE AUTO TRACE mg/dL (NEGATIVE); LEUKOCYTE ESTERASE, URINE AUTO 1+ (NEGATIVE); MUCUS, URINE LARGE (NEGATIVE); NITRITE, URINE AUTO NEGATIVE (NEGATIVE); PROTEIN, URINE AUTO 2+ mg/dL (NEGATIVE); RBC, URINE AUTO 14 /HPF (0-3); SPECIFIC GRAVITY URINE AUTO 1.016 (1.002-1.035); SQUAMOUS EPITHELIAL CELL UR AU 1 /HPF (0-6); WBC, URINE AUTO 100 /HPF (0-3)
[2018-08-13 18:24] LABS: LACTIC ACID SEPSIS PROTOCOL 1.8 MMOL/L (0.4-2.0)
[2018-08-13 18:26] LABS: ALBUMIN 2.8 GM/DL (3.2-5.2); ALBUMIN/GLOBULIN RATIO 0.67 (1.00-1.93); ALKALINE PHOSPHATASE 68 U/L (45-117); ALT/SGPT 22 U/L (12-78); AMYLASE 18 U/L (25-115); ANION GAP 10 MEQ/L (8-16); AST/SGOT 18 U/L (7-37); BILIRUBIN,DIRECT 0.2 MG/DL (0.0-0.2); BILIRUBIN,TOTAL 0.6 MG/DL (0.2-1.0); BLOOD UREA NITROGEN 14 MG/DL (7-18); CALCIUM LEVEL 8.4 MG/DL (8.8-10.2); CARBON DIOXIDE LEVEL 25 MEQ/L (21-32); CHLORIDE LEVEL 99 MEQ/L (98-107); CK-MB VALUE MASS < 1.0 NG/ML (<3.6); CPK CREATINE PHOSPHOKINASE 86 U/L (26-192); CREATININE FOR GFR 1.06 MG/DL (0.55-1.30); GLOMERULAR FILTRATION RATE 55.4 (>45); GLUCOSE, FASTING 168 MG/DL (70-100); MB/CK RELATIVE INDEX 1.16 (< OR =4); POTASSIUM SERUM 4.2 MEQ/L (3.5-5.1); SODIUM LEVEL 134 MEQ/L (136-145); TROPONIN I 0.03 NG/ML (< 0.10)
[2018-08-13 18:41] LABS: INFLUENZA A AMPLIFICATION NEGATIVE (NEGATIVE); INFLUENZA B AMPLIFICATION NEGATIVE (NEGATIVE)
[2018-08-13] MEDS: MECLIZINE 25 MG TABLET PO (18:53)
[2018-08-13] MEDS: cefTRIAXone SOD 1 GM in D5W MINI-BAG PLUS 50 ML IV (18:53)
[2018-08-13] MEDS: NS 1,000 ML IV ×2 (19:30→21:40)
[2018-08-13] MEDS ORDERED: BISACODYL 10 MG SUPP PR (21:45)
[2018-08-13] MEDS ORDERED: BISACODYL 5 MG TAB PO (21:45)
[2018-08-13] MEDS: ACETAMINOPHEN TAB 650MG DOSE (2X325MG) PO (22:13)
[2018-08-13 22:46] LABS: CK-MB VALUE MASS < 1.0 NG/ML (<3.6); CPK CREATINE PHOSPHOKINASE 105 U/L (26-192); MB/CK RELATIVE INDEX 0.95 (< OR =4); TROPONIN I 0.03 NG/ML (< 0.10)
[2018-08-14] MEDS ORDERED: NITROGLYCERIN 0.4 MG SUBL TABLET SL
[2018-08-14 01:41] LABS: BEDSIDE GLUCOSE 102 MG/DL (80-115)
[2018-08-14] MEDS: APIXABAN 5 MG TAB (ELIQUIS) PO ×3 (01:42→20:53)
[2018-08-14] MEDS: ROSUVASTATIN 10 MG TAB (CRESTOR) PO ×2 (01:45→20:53)
[2018-08-14] MEDS: LISINOPRIL 5 MG TAB PO ×2 (01:46→20:54)
[2018-08-14] MEDS: LEVEMIR (INSULIN DETEMIR) 1 UNITS/0.01ML SC ×2 (02:57→20:55)
[2018-08-14] MEDS ORDERED: GLUCOSE 4 GM CHEW TABLET PO (03:00)
[2018-08-14] MEDS ORDERED: GLUCAGON FOR INJ 1 MG VIAL (J1610) SC (03:00)
[2018-08-14] MEDS ORDERED: DEXTROSE 50% 50 ML SYRINGE IV (03:00)
[2018-08-14 06:26] LABS: HEMOGLOBIN 10.7 g/dl (12.0-15.5); MEAN CORPUSCULAR HEMOGLOBIN 29.3 pg (27.0-33.0); MEAN CORPUSCULAR HGB CONC 32.4 g/dl (32.0-36.5); MEAN CORPUSCULAR VOLUME 90.4 fl (80.0-96.0); PLATELET COUNT, AUTOMATED 211 10^3/uL (150-450); RED BLOOD COUNT 3.65 10^6/uL (4.00-5.40); RED CELL DISTRIBUTION WIDTH 13.1 % (11.5-14.5); WHITE BLOOD COUNT 11.4 10^3/uL (4.0-10.0)
[2018-08-14] MEDS: LEVOTHYROXINE 100MCG TABLET (0.1MG) PO (06:27)
[2018-08-14 06:51] LABS: ANION GAP 9 MEQ/L (8-16); BLOOD UREA NITROGEN 16 MG/DL (7-18); CALCIUM LEVEL 8.1 MG/DL (8.8-10.2); CARBON DIOXIDE LEVEL 26 MEQ/L (21-32); CHLORIDE LEVEL 101 MEQ/L (98-107); CK-MB VALUE MASS < 1.0 NG/ML (<3.6); CPK CREATINE PHOSPHOKINASE 135 U/L (26-192); CREATININE FOR GFR 0.92 MG/DL (0.55-1.30); FREE THYROXINE INDEX 6.6 % (1.3-4.8); GLOMERULAR FILTRATION RATE > 60.0 (>45); GLUCOSE, FASTING 102 MG/DL (70-100); MB/CK RELATIVE INDEX 0.74 (< OR =4); POTASSIUM SERUM 3.8 MEQ/L (3.5-5.1); SODIUM LEVEL 136 MEQ/L (136-145); T UPTAKE 42 % (30-39); THYROID STIMULATING HORMONE 0.853 uIU/ML (0.358-3.740); THYROXINE (T4) 15.6 UG/DL (4.5-12.0); TROPONIN I 0.02 NG/ML (< 0.10)
[2018-08-14] MEDS: HumaLOG INSULIN (NovoLOG) PER UNIT SC ×4 (08:30→20:54)
[2018-08-14] MEDS: AMIODARONE 200 MG TAB (PACERONE) PO (08:31)
[2018-08-14 12:43] LABS: BEDSIDE GLUCOSE 125 MG/DL (80-115)
[2018-08-14] MEDS: ACETAMINOPHEN TAB 650MG DOSE (2X325MG) PO ×2 (12:59→20:56)
[2018-08-14 13:42] LABS: CK-MB VALUE MASS < 1.0 NG/ML (<3.6); CPK CREATINE PHOSPHOKINASE 121 U/L (26-192); MB/CK RELATIVE INDEX 0.83 (< OR =4); TROPONIN I 0.03 NG/ML (< 0.10)
[2018-08-14 17:49] LABS: BEDSIDE GLUCOSE 144 MG/DL (80-115)
[2018-08-14 20:08] LABS: BEDSIDE GLUCOSE 131 MG/DL (80-115)
[2018-08-14] MEDS: cefTRIAXone SOD 1 GM in D5W MINI-BAG PLUS 50 ML IV (20:55)
[2018-08-15 04:39] LABS: BEDSIDE GLUCOSE 144 MG/DL (80-115)
[2018-08-15 05:43] LABS: BASO % 0.5 % (0.0-1.0); EOS # 0.1 10^3/uL (0.0-0.50); EOS % 0.9 % (0.0-3.0); HEMATOCRIT 27.5 % (36.0-47.0); HEMOGLOBIN 9.1 g/dl (12.0-15.5); IMMATURE GRANULOCYTE % 0.3 % (0-3.0); LYMPH # 1.1 10^3/uL (1.5-4.5); LYMPH % 11.8 % (24.0-44.0); MEAN CORPUSCULAR HEMOGLOBIN 29.2 pg (27.0-33.0); MEAN CORPUSCULAR HGB CONC 33.1 g/dl (32.0-36.5); MEAN CORPUSCULAR VOLUME 88.1 fl (80.0-96.0); MONO % 11.6 % (0.0-5.0); NEUTROPHILS # 6.7 10^3/uL (1.8-7.7); NEUTROPHILS % 74.9 % (36.0-66.0); PLATELET COUNT, AUTOMATED 189 10^3/uL (150-450); RED BLOOD COUNT 3.12 10^6/uL (4.00-5.40); RED CELL DISTRIBUTION WIDTH 13.1 % (11.5-14.5); WHITE BLOOD COUNT 8.9 10^3/uL (4.0-10.0)
[2018-08-15] MEDS: LEVOTHYROXINE 100MCG TABLET (0.1MG) PO (06:06)
[2018-08-15 06:13] LABS: ALBUMIN 2.2 GM/DL (3.2-5.2); ANION GAP 7 MEQ/L (8-16); BLOOD UREA NITROGEN 25 MG/DL (7-18); CALCIUM LEVEL 8.1 MG/DL (8.8-10.2); CARBON DIOXIDE LEVEL 24 MEQ/L (21-32); CHLORIDE LEVEL 105 MEQ/L (98-107); CREATININE FOR GFR 0.92 MG/DL (0.55-1.30); GLOMERULAR FILTRATION RATE > 60.0 (>45); GLUCOSE, FASTING 138 MG/DL (70-100); PHOSPHORUS LEVEL 2.4 MG/DL (2.5-4.9); POTASSIUM SERUM 3.4 MEQ/L (3.5-5.1); SODIUM LEVEL 136 MEQ/L (136-145)
[2018-08-15] MEDS: ACETAMINOPHEN TAB 650MG DOSE (2X325MG) PO (06:50)
[2018-08-15] MEDS: APIXABAN 5 MG TAB (ELIQUIS) PO ×2 (09:21→22:00)
[2018-08-15] MEDS: HumaLOG INSULIN (NovoLOG) PER UNIT SC ×4 (09:21→21:59)
[2018-08-15] MEDS: AMIODARONE 200 MG TAB (PACERONE) PO (09:23)
[2018-08-15 11:48] LABS: BEDSIDE GLUCOSE 89 MG/DL (80-115)
[2018-08-15 16:51] LABS: BEDSIDE GLUCOSE 99 MG/DL (80-115)
[2018-08-15] MEDS: POTASSIUM CHLORIDE 10 MEQ SR TABLET PO (18:06)
[2018-08-15] MEDS: CEPHALEXIN 500 MG CAP PO ×2 (18:22→22:00)
[2018-08-15 21:36] LABS: BEDSIDE GLUCOSE 136 MG/DL (80-115)
[2018-08-15] MEDS: LEVEMIR (INSULIN DETEMIR) 1 UNITS/0.01ML SC (21:59)
[2018-08-15] MEDS: ROSUVASTATIN 10 MG TAB (CRESTOR) PO (22:01)
[2018-08-15] MEDS: LISINOPRIL 5 MG TAB PO (22:02)
[2018-08-16] MEDS: ACETAMINOPHEN TAB 650MG DOSE (2X325MG) PO (01:54)
[2018-08-16] MEDS: LEVOTHYROXINE 100MCG TABLET (0.1MG) PO (06:04)
[2018-08-16 06:06] LABS: BEDSIDE GLUCOSE 99 MG/DL (80-115)
[2018-08-16] MEDS: HumaLOG INSULIN (NovoLOG) PER UNIT SC ×4 (07:26→20:26)
[2018-08-16] MEDS: CEPHALEXIN 500 MG CAP PO ×2 (08:33→20:25)
[2018-08-16] MEDS: APIXABAN 5 MG TAB (ELIQUIS) PO ×2 (08:33→20:25)
[2018-08-16] MEDS: AMIODARONE 200 MG TAB (PACERONE) PO (08:33)
[2018-08-16 11:37] LABS: BEDSIDE GLUCOSE 128 MG/DL (80-115)
[2018-08-16 13:52] LABS: HEMATOCRIT 29.2 % (36.0-47.0); HEMOGLOBIN 9.8 g/dl (12.0-15.5); MEAN CORPUSCULAR HEMOGLOBIN 29.9 pg (27.0-33.0); MEAN CORPUSCULAR HGB CONC 33.6 g/dl (32.0-36.5); PLATELET COUNT, AUTOMATED 239 10^3/uL (150-450); RED BLOOD COUNT 3.28 10^6/uL (4.00-5.40); WHITE BLOOD COUNT 5.9 10^3/uL (4.0-10.0)
[2018-08-16 14:19] LABS: ANION GAP 7 MEQ/L (8-16); BLOOD UREA NITROGEN 20 MG/DL (7-18); CALCIUM LEVEL 8.2 MG/DL (8.8-10.2); CARBON DIOXIDE LEVEL 24 MEQ/L (21-32); CHLORIDE LEVEL 107 MEQ/L (98-107); CREATININE FOR GFR 0.87 MG/DL (0.55-1.30); GLOMERULAR FILTRATION RATE > 60.0 (>45); GLUCOSE, FASTING 147 MG/DL (70-100); MAGNESIUM LEVEL 2.1 MG/DL (1.8-2.4); POTASSIUM SERUM 3.5 MEQ/L (3.5-5.1); SODIUM LEVEL 138 MEQ/L (136-145)
[2018-08-16 14:22] LABS: ERYTHROCYTE SEDIMENTATION RATE 75 mm/hr (0-30)
[2018-08-16 16:52] LABS: BEDSIDE GLUCOSE 103 MG/DL (80-115)
[2018-08-16 19:55] LABS: BEDSIDE GLUCOSE 171 MG/DL (80-115)
[2018-08-16] MEDS: ROSUVASTATIN 10 MG TAB (CRESTOR) PO (20:25)
[2018-08-16] MEDS: LEVEMIR (INSULIN DETEMIR) 1 UNITS/0.01ML SC (20:26)
[2018-08-16] MEDS: LISINOPRIL 5 MG TAB PO (20:26)
[2018-08-17 05:36] LABS: BEDSIDE GLUCOSE 85 MG/DL (80-115)
[2018-08-17] MEDS: LEVOTHYROXINE 100MCG TABLET (0.1MG) PO (05:36)
[2018-08-17] MEDS: HumaLOG INSULIN (NovoLOG) PER UNIT SC ×4 (07:07→20:51)
[2018-08-17] MEDS: CEPHALEXIN 500 MG CAP PO ×2 (08:19→20:56)
[2018-08-17] MEDS: AMIODARONE 200 MG TAB (PACERONE) PO (08:19)
[2018-08-17] MEDS: APIXABAN 5 MG TAB (ELIQUIS) PO ×2 (08:19→20:57)
[2018-08-17 10:29] LABS: ANION GAP 9 MEQ/L (8-16); BLOOD UREA NITROGEN 19 MG/DL (7-18); C REACTIVE PROTEIN QUANTITATIV 8.05 MG/DL (0.00-0.30); CALCIUM LEVEL 8.2 MG/DL (8.8-10.2); CARBON DIOXIDE LEVEL 25 MEQ/L (21-32); CHLORIDE LEVEL 105 MEQ/L (98-107); CREATININE FOR GFR 0.95 MG/DL (0.55-1.30); GLOMERULAR FILTRATION RATE > 60.0 (>45); GLUCOSE, FASTING 175 MG/DL (70-100); POTASSIUM SERUM 3.7 MEQ/L (3.5-5.1); SODIUM LEVEL 139 MEQ/L (136-145)
[2018-08-17 11:48] LABS: BEDSIDE GLUCOSE 138 MG/DL (80-115)
[2018-08-17 16:50] LABS: BEDSIDE GLUCOSE 184 MG/DL (80-115)
[2018-08-17 20:53] LABS: BEDSIDE GLUCOSE 182 MG/DL (80-115)
[2018-08-17] MEDS: ROSUVASTATIN 10 MG TAB (CRESTOR) PO (20:56)
[2018-08-17] MEDS: LISINOPRIL 5 MG TAB PO (20:56)
[2018-08-17] MEDS: LEVEMIR (INSULIN DETEMIR) 1 UNITS/0.01ML SC (20:57)
[2018-08-18] MEDS: LEVOTHYROXINE 100MCG TABLET (0.1MG) PO (05:58)
[2018-08-18 06:04] LABS: HEMATOCRIT 27.4 % (36.0-47.0); HEMOGLOBIN 9.1 g/dl (12.0-15.5); MEAN CORPUSCULAR HEMOGLOBIN 29.2 pg (27.0-33.0); MEAN CORPUSCULAR HGB CONC 33.2 g/dl (32.0-36.5); MEAN CORPUSCULAR VOLUME 87.8 fl (80.0-96.0); PLATELET COUNT, AUTOMATED 300 10^3/uL (150-450); RED BLOOD COUNT 3.12 10^6/uL (4.00-5.40); RED CELL DISTRIBUTION WIDTH 12.9 % (11.5-14.5); WHITE BLOOD COUNT 6.1 10^3/uL (4.0-10.0)
[2018-08-18 06:24] LABS: ERYTHROCYTE SEDIMENTATION RATE 68 mm/hr (0-30)
[2018-08-18 06:28] LABS: ANION GAP 7 MEQ/L (8-16); BLOOD UREA NITROGEN 16 MG/DL (7-18); C REACTIVE PROTEIN QUANTITATIV 4.72 MG/DL (0.00-0.30); CALCIUM LEVEL 8.3 MG/DL (8.8-10.2); CARBON DIOXIDE LEVEL 26 MEQ/L (21-32); CHLORIDE LEVEL 107 MEQ/L (98-107); CREATININE FOR GFR 0.83 MG/DL (0.55-1.30); GLOMERULAR FILTRATION RATE > 60.0 (>45); GLUCOSE, FASTING 149 MG/DL (70-100); POTASSIUM SERUM 3.7 MEQ/L (3.5-5.1); SODIUM LEVEL 140 MEQ/L (136-145)
[2018-08-18] MEDS: AMIODARONE 200 MG TAB (PACERONE) PO (08:10)
[2018-08-18] MEDS: APIXABAN 5 MG TAB (ELIQUIS) PO (08:10)
[2018-08-18] MEDS: CEPHALEXIN 500 MG CAP PO (08:10)
[2018-08-18] MEDS: HumaLOG INSULIN (NovoLOG) PER UNIT SC ×2 (08:10→12:26)
[2018-08-18] MEDS: FUROSEMIDE 40 MG TAB PO (10:50)
[2018-08-18 11:32] LABS: BEDSIDE GLUCOSE 206 MG/DL (80-115)
[2018-08-19] MEDS ORDERED: FUROSEMIDE 40 MG TAB PO (09:00)
== END 2018-08-18 13:03 | disposition home or self-care (01) | DRG 690 ==
LOC: M MSPAV 08-14 01:17 → M ED 17:05 → M ED INP 21:40
DX: N39.0 Urinary tract infection, site not specified (principal); I50.32 Chronic diastolic (congestive) heart failure; I95.1 Orthostatic hypotension; E03.9 Hypothyroidism, unspecified; E11.9 Type 2 diabetes mellitus without complications; I11.0 Hypertensive heart disease with heart failure; I25.10 Atherosclerotic heart disease of native coronary artery without angina pectoris; I48.0 Paroxysmal atrial fibrillation; M54.5 Low back pain; Z79.899 Other long term (current) drug therapy; I25.2 Old myocardial infarction; Z95.2 Presence of prosthetic heart valve; E78.5 Hyperlipidemia, unspecified; M81.0 Age-related osteoporosis without current pathological fracture; Q96.9 Turner's syndrome, unspecified; I45.10 Unspecified right bundle-branch block; Z95.0 Presence of cardiac pacemaker; F32.9 Major depressive disorder, single episode, unspecified; D72.829 Elevated white blood cell count, unspecified; B96.29 Other Escherichia coli [E. coli] as the cause of diseases classified elsewhere; Z79.4 Long term (current) use of insulin; Z88.2 Allergy status to sulfonamides; Z88.8 Allergy status to other drugs, medicaments and biological substances; Z88.0 Allergy status to penicillin

== ENCOUNTER → 2018-09-25 | Outpatient (CLI) | payer MEDICARE ==
[~2018-09-25] MED LIST changes: +AMIO200T PO; -ASPI325T24 PO; +ASPI325T25 PO; +BASA100I SC; +CRES10TA32 PO; +MECL-68 PO; +SYNT100T PO; -VITA1CAP40 PO; +VITA50005 PO
[2018-09-25 11:40] LABS: BASO # 0.1 10^3/uL (0.0-0.2); BASO % 1.4 % (0.0-1.0); EOS # 0.2 10^3/uL (0.0-0.50); EOS % 2.7 % (0.0-3.0); HEMATOCRIT 34.6 % (36.0-47.0); HEMOGLOBIN 11.2 g/dl (12.0-15.5); LYMPH # 1.6 10^3/uL (1.5-4.5); LYMPH % 25.8 % (24.0-44.0); MEAN CORPUSCULAR HEMOGLOBIN 29.9 pg (27.0-33.0); MEAN CORPUSCULAR HGB CONC 32.4 g/dl (32.0-36.5); MEAN CORPUSCULAR VOLUME 92.3 fl (80.0-96.0); MONO # 0.6 10^3/uL (0.0-0.8); NEUTROPHILS # 3.8 10^3/uL (1.8-7.7); NEUTROPHILS % 60.5 % (36.0-66.0); PLATELET COUNT, AUTOMATED 241 10^3/uL (150-450); RED BLOOD COUNT 3.75 10^6/uL (4.00-5.40); WHITE BLOOD COUNT 6.3 10^3/uL (4.0-10.0)
[2018-09-25 11:49] LABS: ALBUMIN 3.3 GM/DL (3.2-5.2); BILIRUBIN,TOTAL 0.4 MG/DL (0.2-1.0); CALCIUM LEVEL 8.6 MG/DL (8.8-10.2); CHOLESTEROL RISK RATIO 6.134 (<5); GLOMERULAR FILTRATION RATE 59.1 (>45); MAGNESIUM LEVEL 2.1 MG/DL (1.8-2.4); POTASSIUM SERUM 4.9 MEQ/L (3.5-5.1); TOTAL PROTEIN 6.9 GM/DL (6.4-8.2)
== END ==
LOC: M WUC 08:15
PROVIDERS: ATTEND Internal Medicine Cardiovascular Disease
DX: I11.0 Hypertensive heart disease with heart failure (principal); I50.32 Chronic diastolic (congestive) heart failure; I48.0 Paroxysmal atrial fibrillation; E78.00 Pure hypercholesterolemia, unspecified

== ENCOUNTER 2018-10-18 04:27 | Inpatient (IN) | payer MEDICARE ==
[~2018-10-18] VITALS: Ht 167.6 cm; Wt 99.6 kg
[2018-10-18 05:13] LABS: BASO % 0.1 % (0.0-1.0); HEMATOCRIT 30.1 % (36.0-47.0); LYMPH # 0.5 10^3/uL (1.5-4.5); LYMPH % 5.3 % (24.0-44.0); MEAN CORPUSCULAR HEMOGLOBIN 29.7 pg (27.0-33.0); MEAN CORPUSCULAR HGB CONC 33.2 g/dl (32.0-36.5); MEAN CORPUSCULAR VOLUME 89.3 fl (80.0-96.0); MONO # 0.5 10^3/uL (0.0-0.8); MONO % 5.2 % (0.0-5.0); NEUTROPHILS # 7.9 10^3/uL (1.8-7.7); NEUTROPHILS % 88.7 % (36.0-66.0); PLATELET COUNT, AUTOMATED 152 10^3/uL (150-450); RED BLOOD COUNT 3.37 10^6/uL (4.00-5.40); WHITE BLOOD COUNT 8.9 10^3/uL (4.0-10.0)
[2018-10-18 05:39] LABS: AMORPHOUS SEDIMENT SMALL (NEGATIVE); APPEARANCE, URINE CLOUDY (CLEAR); BACTERIA, URINE AUTO NEGATIVE (NEGATIVE); BILIRUBIN, URINE AUTO NEGATIVE (NEGATIVE); BLOOD, URINE BLOOD 2+ (NEGATIVE); COLOR, URINE YELLOW (YELLOW); GLUCOSE, URINE (UA) AUTO 1+ mg/dL (NEGATIVE); KETONE, URINE AUTO TRACE mg/dL (NEGATIVE); LEUKOCYTE ESTERASE, URINE AUTO NEGATIVE (NEGATIVE); MUCUS, URINE SMALL (NEGATIVE); NITRITE, URINE AUTO NEGATIVE (NEGATIVE); PROTEIN, URINE AUTO 2+ mg/dL (NEGATIVE); RBC, URINE AUTO 1 /HPF (0-3); SPECIFIC GRAVITY URINE AUTO 1.021 (1.002-1.035); SQUAMOUS EPITHELIAL CELL UR AU 1 /HPF (0-6); UROBILINOGEN, URINE AUTO 0.2 mg/dL (0.0-2.0); WBC, URINE AUTO 2 /HPF (0-3)
[2018-10-18 05:42] LABS: ALBUMIN 2.9 GM/DL (3.2-5.2); BILIRUBIN,DIRECT 0.1 MG/DL (0.0-0.2); BILIRUBIN,TOTAL 0.4 MG/DL (0.2-1.0); CALCIUM LEVEL 7.6 MG/DL (8.8-10.2); CREATININE FOR GFR 1.1 MG/DL (0.55-1.30); FREE THYROXINE INDEX 5.9 % (1.3-4.8); GLOMERULAR FILTRATION RATE 52.9 (>45); POTASSIUM SERUM 3.8 MEQ/L (3.5-5.1); THYROID STIMULATING HORMONE 1.78 uIU/ML (0.358-3.740); THYROXINE (T4) 14.3 UG/DL (4.5-12.0); TOTAL PROTEIN 6.1 GM/DL (6.4-8.2)
--- NOTE | 2018-10-18 06:15 | REP ---
Clinical: Shortness of breath. Pre admission. Comparison: 08/13/2018. Findings: Examination is limited by portable technique and underpenetration which accentuate the pulmonary vasculature and interstitium. The mediastinum and cardiac silhouette including dual lead pacemaker are stable and within normal limits. Lung rodriguez demonstrate chronic interstitial changes. Superimposed left mid to lower lobe opacities are suspected. No obvious effusion. No pneumothorax. Skeletal structures intact. Impression: Chronic-appearing interstitial changes with superimposed left mid to lower lobe opacities suggested. Electronically Signed by Jesu Guardado MD 10/18/2018 06:07 A
[2018-10-18] MEDS ORDERED: BASA100I SC (06:30)
[2018-10-18] MEDS ORDERED: FLON1SPR (06:30)
[2018-10-18] MEDS ORDERED: CEFD1CAP8 PO (06:30)
[2018-10-18] MEDS ORDERED: MECL12.575 PO (06:30)
[2018-10-18] MEDS ORDERED: FUROSEMIDE 40 MG/4 ML VIAL (J1940) IV ONE (07:15)
--- NOTE | 2018-10-18 07:48 | ECGEPIP ---
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
[2018-10-18] MEDS ORDERED: DEXTROSE 50% 50 ML SYRINGE IV PRN (10:45)
[2018-10-18] MEDS ORDERED: GLUCAGON FOR INJ 1 MG VIAL (J1610) SC PRN (10:45)
[2018-10-18] MEDS ORDERED: GLUCOSE 4 GM CHEW TABLET PO PRN (10:45)
[2018-10-18] MEDS ORDERED: NITROGLYCERIN 0.4 MG SUBL TABLET SL PRN (10:45)
[2018-10-18] MEDS ORDERED: MECLIZINE 12.5 MG TAB PO PRN (10:45)
[2018-10-18] MEDS: FUROSEMIDE 40 MG/4 ML VIAL (J1940) IV SCH ×3 (12:00→23:48)
[2018-10-18] MEDS: ACETAMINOPHEN TAB 650MG DOSE (2X325MG) PO PRN ×2 (12:49→18:53)
[2018-10-18] MEDS: APIXABAN 5 MG TAB (ELIQUIS) PO SCH ×2 (12:54→21:56)
[2018-10-18] MEDS: LEVOTHYROXINE 100MCG TABLET (0.1MG) PO SCH (12:54)
[2018-10-18] MEDS: HumaLOG INSULIN (NovoLOG) PER UNIT SC SCH ×3 (12:55→21:00)
[2018-10-18 16:00] VITALS: BP 88/50
--- NOTE | 2018-10-18 17:55 | REP ---
Clinical: Lower extremity weakness. Comparison: 08/13/2018 . Findings: Age-related atrophy and microvascular ischemic changes are appreciated along with mild periventricular leukomalacia and evidence for old left cerebellar infarct. The ventricles and sulci are symmetric. Ott-white differentiation is maintained. There is no evidence for acute intracranial hemorrhage, mass/mass effect, pathology or infarction. No extra-axial fluid collection. Calvarium is intact. Paranasal sinuses and mastoid air cells are clear. Impression: Age related atrophy and microvascular ischemic changes. Old left cerebellar infarct. No acute intracranial hemorrhage, infarction, or mass/mass effect. Electronically Signed by Jesu Guardado MD 10/18/2018 05:47 P
[2018-10-18 18:21] VITALS: BP 102/60
[2018-10-18 20:00] VITALS: BP 108/70
[2018-10-18] MEDS: AMIODARONE 200 MG TAB (PACERONE) PO SCH (21:56)
[2018-10-18] MEDS: ROSUVASTATIN 10 MG TAB (CRESTOR) PO SCH (21:56)
[2018-10-18] MEDS: LISINOPRIL 5 MG TAB PO SCH (21:56)
[2018-10-19] VITALS (7 sets, daily range): BP systolic 97–126; BP diastolic 52–65
[2018-10-19 05:55] LABS: HEMATOCRIT 31.4 % (36.0-47.0); HEMOGLOBIN 10.7 g/dl (12.0-15.5); MEAN CORPUSCULAR HEMOGLOBIN 30.1 pg (27.0-33.0); MEAN CORPUSCULAR HGB CONC 34.1 g/dl (32.0-36.5); MEAN CORPUSCULAR VOLUME 88.2 fl (80.0-96.0); PLATELET COUNT, AUTOMATED 147 10^3/uL (150-450); RED BLOOD COUNT 3.56 10^6/uL (4.00-5.40); WHITE BLOOD COUNT 5.3 10^3/uL (4.0-10.0)
[2018-10-19] MEDS: LEVOTHYROXINE 100MCG TABLET (0.1MG) PO SCH (05:56)
[2018-10-19] MEDS: FUROSEMIDE 40 MG/4 ML VIAL (J1940) IV SCH (05:57)
[2018-10-19 06:25] LABS: CALCIUM LEVEL 7.8 MG/DL (8.8-10.2); CREATININE FOR GFR 1.11 MG/DL (0.55-1.30); GLOMERULAR FILTRATION RATE 52.4 (>45); POTASSIUM SERUM 3.3 MEQ/L (3.5-5.1)
[2018-10-19] MEDS: FLUTICASONE PROP 0.05% NASAL SPRAY 16 GM (FLONASE) SCH (08:19)
[2018-10-19] MEDS: APIXABAN 5 MG TAB (ELIQUIS) PO SCH ×2 (08:20→21:10)
[2018-10-19] MEDS: HumaLOG INSULIN (NovoLOG) PER UNIT SC SCH ×4 (08:20→21:00)
--- NOTE | 2018-10-19 10:58 | IPNPDOC ---
Subjective Date Seen The patient was seen on 10/19/18. Subjective Chief Complaint/HPI CHF Events since last encounter Admitted for CHF exacerbation. Has diuresed well with lasix 40 mg IV q 6 hrs. patient states she doesn't feel much better and is fatigued. Denies JAMES or SOB. Constitutional: Reports: Malaise, Fatigue Cardiovascular: Denies: Chest Pain, Palpitations, Orthopnea, Paroxysmal Noc. Dyspnea, Lt Headedness Gastrointestinal: Denies: Nausea, Vomiting, Abdominal Pain, Diarrhea, Constipation Genitourinary: Denies: Dysuria, Frequency, Incontinence, Retention Objective Physical Examination General Exam: Positive: Alert, No Acute Distress Neck Exam: Positive: Supple; Negative: JVD, thyromegaly Chest Exam: Positive: Clear to auscultation, Normal air movement Heart Exam: Positive: Rate Normal, Regular Rhythm, Normal S1, Normal S2; Negative: Murmurs, Rubs Extremity Exam: Positive: Normal pulses; Negative: Clubbing, Cyanosis, Edema Skin Exam: Positive: Nl turgor and temperature; Negative: Rash, Breakdown Psych Exam: Positive: Mental status NL, Mood NL, Oriented x 3 Assessment /Plan Problems (1) Acute on chronic diastolic (congestive) heart failure Status: Acute Problem Text: continue with I/o, daily weights, diuresing. Continue Fluid restriction of 1800 ml. (2) Paroxysmal atrial flutter Status: Chronic Problem Text: rate controlled. on home dose of eliquis (3) Hypertension Status: Chronic Response to Treatment: Stable (4) Hyperlipidemia Status: Chronic Response to Treatment: Stable Plan/VTE VTE Prophylaxis Ordered?: Yes (eliquis) VS, I&O, 24H, Fishbone Vital Signs/I&O Vital Signs Date Time Temp Pulse Resp B/P (MAP) Pulse Ox O2 Delivery O2 Flow Rate FiO2 10/19/18 08:00 98.4 69 18 115/58 (77) 98 10/18/18 15:45 Room Air I&O- Last 24 Hours up to 6 AM 10/19/18 06:00 Intake Total 370 ml Output Total 2750 ml Balance -2380 ml Laboratory Data 24H LABS Laboratory Tests 2 10/18/18 12:43: Bedside Glucose (Misc Panel) 108 10/18/18 21:54: Bedside Glucose (Misc Panel) 138H 10/19/18 05:33: Nucleated Red Blood Cells % (auto) 0.0, Anion Gap 9, Glomerular Filtration Rate 52.4, Blood Urea Nitrogen 22H, Creatinine 1.11, Sodium Level 132L, Potassium Level 3.3L, Chloride Level 97L, Carbon Dioxide Level 26, Calcium Level 7.8L CBC/BMP Laboratory Tests 10/19/18 05:33 Red Blood Count 3.56 L, Mean Corpuscular Volume 88.2, Mean Corpuscular Hemoglobin 30.1, Mean Corpuscular Hemoglobin Concent 34.1, Red Cell Distribution Width 13.2, Calcium Level 7.8 L Microbiology Microbiology 10/18/18 Blood Culture, Received Pending 10/18/18 Blood Culture, Received Pending 10/18/18 Urine Culture - Final, Complete Lovely Sagastume PHYSICIAN OPHTHALMOLOGIST Oct 19, 2018 10:58
[2018-10-19] MEDS ORDERED: POTASSIUM CHLORIDE 10 MEQ SR TABLET PO ONE (11:00)
[2018-10-19] MEDS ORDERED: SLF 3 ML SYR IV PRN (11:30)
--- NOTE | 2018-10-19 11:35 | REP ---
Clinical: Follow up effusion. Technique: PA and lateral. Comparison: 10/18/2018. Findings: Mediastinum and cardiac silhouette are stable. Lung rodriguez demonstrate chronic interstitial changes. Subtle left lower lobe infiltrate appears improved. Impression: Subtle residual left lower lobe infiltrate appears improved. Electronically Signed by Jesu Guardado MD 10/19/2018 11:28 A
[2018-10-19] MEDS: SLF 3 ML SYR IV SCH ×2 (14:00→21:15)
--- NOTE | 2018-10-19 14:13 | HPE ---
DATE OF ADMISSION: 10/18/2018 Barbara was admitted on 10/18/2018, and her history and physical was generated through the office electronic medical record. A copy has been printed to be placed on her chart.
[2018-10-19] MEDS: ACETAMINOPHEN TAB 650MG DOSE (2X325MG) PO PRN (17:11)
[2018-10-19] MEDS: AMIODARONE 200 MG TAB (PACERONE) PO SCH (21:10)
[2018-10-19] MEDS: LISINOPRIL 5 MG TAB PO SCH (21:10)
[2018-10-20] MEDS: ACETAMINOPHEN TAB 650MG DOSE (2X325MG) PO PRN ×2 (02:39→17:33)
[2018-10-20 04:00] VITALS: BP 122/85
[2018-10-20 05:57] LABS: HEMATOCRIT 30.8 % (36.0-47.0); HEMOGLOBIN 10.5 g/dl (12.0-15.5); MEAN CORPUSCULAR HEMOGLOBIN 29.8 pg (27.0-33.0); MEAN CORPUSCULAR HGB CONC 34.1 g/dl (32.0-36.5); MEAN CORPUSCULAR VOLUME 87.5 fl (80.0-96.0); PLATELET COUNT, AUTOMATED 147 10^3/uL (150-450); RED BLOOD COUNT 3.52 10^6/uL (4.00-5.40); WHITE BLOOD COUNT 4.7 10^3/uL (4.0-10.0)
[2018-10-20] MEDS: SLF 3 ML SYR IV SCH ×3 (06:00→21:03)
[2018-10-20 06:21] LABS: CALCIUM LEVEL 7.9 MG/DL (8.8-10.2); CREATININE FOR GFR 1.14 MG/DL (0.55-1.30); GLOMERULAR FILTRATION RATE 50.8 (>45); POTASSIUM SERUM 3.2 MEQ/L (3.5-5.1)
[2018-10-20] MEDS: LEVOTHYROXINE 100MCG TABLET (0.1MG) PO SCH (06:29)
[2018-10-20 08:00] VITALS: BP 154/64
[2018-10-20] MEDS: FLUTICASONE PROP 0.05% NASAL SPRAY 16 GM (FLONASE) SCH (08:57)
[2018-10-20] MEDS: FUROSEMIDE 40 MG TAB PO SCH (08:57)
[2018-10-20] MEDS: HumaLOG INSULIN (NovoLOG) PER UNIT SC SCH ×4 (08:57→21:00)
[2018-10-20] MEDS: APIXABAN 5 MG TAB (ELIQUIS) PO SCH ×2 (08:57→21:03)
--- NOTE | 2018-10-20 08:59 | IPNPDOC ---
Subjective Date Seen The patient was seen on 10/20/18. Subjective Chief Complaint/HPI CHF Events since last encounter Patient continues to c/o weakness and lethargy. Diuresed -3L yesterday. Oxygen saturations stable. Noc ox and echo pending. Pulmonary: Reports: Dyspnea, Cough Cardiovascular: Denies: Chest Pain, Palpitations, Orthopnea Gastrointestinal: Denies: Nausea, Vomiting, Abdominal Pain, Diarrhea, Constipation Genitourinary: Denies: Dysuria, Frequency, Incontinence, Retention Psych: Reports: Mood Normal, Other Psych (irritable); Denies: Depression, Memory Issues Objective Physical Examination General Exam: Positive: Alert, No Acute Distress Neck Exam: Positive: Supple; Negative: JVD, thyromegaly Chest Exam: Positive: Clear to auscultation, Normal air movement Heart Exam: Positive: Rate Normal, Regular Rhythm, Normal S1, Normal S2; Negative: Murmurs, Rubs Extremity Exam: Positive: Normal pulses; Negative: Clubbing, Cyanosis, Edema Skin Exam: Positive: Nl turgor and temperature; Negative: Rash, Breakdown Psych Exam: Positive: Mental status NL, Mood NL, Oriented x 3 Assessment /Plan Problems (1) Acute on chronic diastolic (congestive) heart failure Status: Acute Problem Text: continue with I/o, daily weights, diuresing. Continue Fluid restriction of 1800 ml. Echo and noc ox today. (2) Paroxysmal atrial flutter Status: Chronic Problem Text: rate controlled. on home dose of eliquis (3) Hypertension Status: Chronic Response to Treatment: Stable (4) Hyperlipidemia Status: Chronic Response to Treatment: Stable (5) QING (obstructive sleep apnea) Status: Chronic Problem Text: non-compliant with CPAP at home, states intolerant in the past. (6) Infiltrate of lung present on imaging of chest Status: Acute Problem Text: appears improved on CXR. Duonebs q 6 hrs and albuterol q2 hrs prn. Respiratory panel ordered. No fever or WBC. No antibiotic coverage indicated at this time. Plan/VTE VTE Prophylaxis Ordered?: Yes (eliquis) VS, I&O, 24H, Fishbone Vital Signs/I&O Vital Signs Date Time Temp Pulse Resp B/P (MAP) Pulse Ox O2 Delivery O2 Flow Rate FiO2 10/20/18 08:00 97.7 70 18 154/64 (94) 96 10/18/18 15:45 Room Air I&O- Last 24 Hours up to 6 AM 10/20/18 06:00 Intake Total 770 ml Output Total 950 ml Balance -180 ml Laboratory Data 24H LABS Laboratory Tests 2 10/19/18 11:57: Bedside Glucose (Misc Panel) 129H 10/19/18 17:27: Bedside Glucose (Misc Panel) 103 10/19/18 21:15: Bedside Glucose (Misc Panel) 113 10/20/18 05:26: Nucleated Red Blood Cells % (auto) 0.0, Anion Gap 9, Glomerular Filtration Rate 50.8, Blood Urea Nitrogen 26H, Creatinine 1.14, Sodium Level 131L, Potassium Level 3.2L, Chloride Level 96L, Carbon Dioxide Level 26, Calcium Level 7.9L CBC/BMP Laboratory Tests 10/20/18 05:26 Red Blood Count 3.52 L, Mean Corpuscular Volume 87.5, Mean Corpuscular He moglobin 29.8, Mean Corpuscular Hemoglobin Concent 34.1, Red Cell Distribution Width 13.1, Calcium Level 7.9 L Microbiology Microbiology 10/18/18 Blood Culture - Preliminary, Resulted No growth after 24 hours . All specim... 10/18/18 Blood Culture - Preliminary, Resulted No growth after 24 hours . All specim... 10/18/18 Urine Culture - Final, Complete Lovely Sagastume Oct 20, 2018 08:59
[2018-10-20] MEDS ORDERED: POTASSIUM CHLORIDE 10 MEQ SR TABLET PO ONE (09:00)
[2018-10-20] MEDS: IPRATROPIUM 0.5MG/ALBUTEROL 2.5MG INH SOL UD 3ML (DUONEB)(J7620) NEB SCH ×3 (10:40→19:46)
[2018-10-20 11:44] VITALS: BP 152/67
[2018-10-20] MEDS: OSELTAMIVIR PHOSPHATE 75 MG CAP (TAMIFLU) PO SCH ×2 (14:20→21:03)
[2018-10-20 15:56] VITALS: BP 132/76
--- NOTE | 2018-10-20 18:25 | ECHO ---
DATE OF PROCEDURE: 10/20/2018 AGE: 68 GENDER: Female HEIGHT: 66 inches WEIGHT: 218 pounds BODY SURFACE AREA: 2.07 m2. PATIENT LOCATION: Inpatient, PCU, room 3224 REFERRING PHYSICIAN: Arias Schafer MD INDICATION: Dyspnea. 2-D MEASUREMENTS: RV: 3.6 cm LV: 4.0 cm Septum: 1.3 cm Posterior wall: 1.3 cm Aortic root: 3.1 cm LA: 4.0 cm LVEF: 45% DOPPLER MEASUREMENTS: AV: 1.25 m/s LVOT: 0.95 m/s LVOT diameter: 2.3 cm MV-E: 88, A: 61, EA ratio: 1.4 Early mitral deceleration time: 215 ms E prime: 5.2, A prime: 5.9, E/E prime ratio: 16.9 PCWP: 16.2 mmHg PV: 1.0 m/s Pulmonary artery acceleration time: 92 ms RVSP: 45 mmHg IVC: 1.4 cm COMMENTS Consistent AV sequentially paced rhythm. Paced QRS complexes with left bundle branch block (LBBB) configuration. Technically difficult study in light of the patient's body habitus, but diagnostically useful information was still obtained. M-mode and two-dimensional echocardiography was performed with pulsed, continuous wave, color flow and tissue Doppler studies. Mild concentric left ventricle hypertrophy with paradoxical septal motion and apical akinesis related to right ventricular pacing resulting in at least a mild impairment of global resting systolic function. Mildly dilated left atrium with impairment of left ventricle (LV) diastolic function and current estimated mean left atrial pressure at least mildly elevated. Normal right heart chamber sizes and motion with Doppler evidence of at least moderate pulmonary hypertension. Normal inferior vena cava (IVC) size and collapse against an elevated central venous pressure at this time. Aortic valvular sclerosis without functional valvular abnormality. Normal aortic root size. Mild mitral annular calcification with no more than trace mitral insufficiency. Normal appearing tricuspid valve with trace insufficiency. Pacing leads could be visualized traversing right heart structures but no separate intracardiac mass. No pericardial effusion. Comparing today's study with that described September 12, 2017 there did not appear to be a dramatic change.
[2018-10-20 19:57] VITALS: BP 112/54
[2018-10-20] MEDS: AMIODARONE 200 MG TAB (PACERONE) PO SCH (21:03)
[2018-10-20] MEDS: ROSUVASTATIN 10 MG TAB (CRESTOR) PO SCH (21:03)
[2018-10-20] MEDS: LISINOPRIL 5 MG TAB PO SCH (21:03)
[2018-10-20 23:59] VITALS: BP 128/64
[2018-10-21] MEDS: IPRATROPIUM 0.5MG/ALBUTEROL 2.5MG INH SOL UD 3ML (DUONEB)(J7620) NEB SCH ×4 (01:13→20:00)
[2018-10-21 04:00] VITALS: BP 121/58
[2018-10-21 05:27] LABS: HEMATOCRIT 31.7 % (36.0-47.0); HEMOGLOBIN 10.8 g/dl (12.0-15.5); MEAN CORPUSCULAR HEMOGLOBIN 29.1 pg (27.0-33.0); MEAN CORPUSCULAR HGB CONC 34.1 g/dl (32.0-36.5); MEAN CORPUSCULAR VOLUME 85.4 fl (80.0-96.0); PLATELET COUNT, AUTOMATED 157 10^3/uL (150-450); RED BLOOD COUNT 3.71 10^6/uL (4.00-5.40)
[2018-10-21 05:55] LABS: CALCIUM LEVEL 8.1 MG/DL (8.8-10.2); CREATININE FOR GFR 1.01 MG/DL (0.55-1.30); GLOMERULAR FILTRATION RATE 58.4 (>45); POTASSIUM SERUM 3.9 MEQ/L (3.5-5.1)
[2018-10-21] MEDS: SLF 3 ML SYR IV SCH ×3 (06:00→21:16)
[2018-10-21] MEDS: LEVOTHYROXINE 100MCG TABLET (0.1MG) PO SCH (06:19)
[2018-10-21] MEDS: HumaLOG INSULIN (NovoLOG) PER UNIT SC SCH ×4 (07:30→21:00)
[2018-10-21 08:00] VITALS: BP 118/63
[2018-10-21] MEDS: FUROSEMIDE 40 MG TAB PO SCH (08:14)
[2018-10-21] MEDS: OSELTAMIVIR PHOSPHATE 75 MG CAP (TAMIFLU) PO SCH ×2 (08:14→21:11)
[2018-10-21] MEDS: APIXABAN 5 MG TAB (ELIQUIS) PO SCH ×2 (08:14→21:11)
[2018-10-21] MEDS: FLUTICASONE PROP 0.05% NASAL SPRAY 16 GM (FLONASE) SCH (08:15)
[2018-10-21 12:00] VITALS: BP 123/65
[2018-10-21 16:00] VITALS: BP 102/62
[2018-10-21 20:00] VITALS: BP 117/67
[2018-10-21 21:11] VITALS: BP 117/67
[2018-10-21] MEDS: LISINOPRIL 5 MG TAB PO SCH (21:11)
[2018-10-21] MEDS: AMIODARONE 200 MG TAB (PACERONE) PO SCH (21:11)
[2018-10-22] VITALS: BP 110/58
[2018-10-22] MEDS: IPRATROPIUM 0.5MG/ALBUTEROL 2.5MG INH SOL UD 3ML (DUONEB)(J7620) NEB SCH ×4 (01:10→20:00)
[2018-10-22 04:00] VITALS: BP 103/54
[2018-10-22] MEDS: ACETAMINOPHEN TAB 650MG DOSE (2X325MG) PO PRN (04:10)
[2018-10-22 05:49] LABS: HEMATOCRIT 30.3 % (36.0-47.0); HEMOGLOBIN 10.6 g/dl (12.0-15.5); MEAN CORPUSCULAR HEMOGLOBIN 29.4 pg (27.0-33.0); MEAN CORPUSCULAR VOLUME 83.9 fl (80.0-96.0); PLATELET COUNT, AUTOMATED 170 10^3/uL (150-450); RED BLOOD COUNT 3.61 10^6/uL (4.00-5.40); WHITE BLOOD COUNT 4.7 10^3/uL (4.0-10.0)
[2018-10-22] MEDS: SLF 3 ML SYR IV SCH ×3 (06:00→22:00)
[2018-10-22] MEDS: LEVOTHYROXINE 100MCG TABLET (0.1MG) PO SCH (06:00)
[2018-10-22 06:24] LABS: CREATININE FOR GFR 1.21 MG/DL (0.55-1.30); GLOMERULAR FILTRATION RATE 47.4 (>45); POTASSIUM SERUM 3.4 MEQ/L (3.5-5.1)
[2018-10-22] MEDS: HumaLOG INSULIN (NovoLOG) PER UNIT SC SCH ×4 (07:30→21:00)
[2018-10-22 07:50] VITALS: BP 102/58
[2018-10-22] MEDS: FUROSEMIDE 40 MG TAB PO SCH (08:38)
[2018-10-22] MEDS: OSELTAMIVIR PHOSPHATE 75 MG CAP (TAMIFLU) PO SCH ×2 (08:38→21:04)
[2018-10-22] MEDS: APIXABAN 5 MG TAB (ELIQUIS) PO SCH ×2 (08:38→21:04)
[2018-10-22] MEDS: FLUTICASONE PROP 0.05% NASAL SPRAY 16 GM (FLONASE) SCH (08:38)
[2018-10-22] MEDS ORDERED: POTASSIUM CHLORIDE 10 MEQ SR TABLET PO ONE (09:45)
--- NOTE | 2018-10-22 10:14 | NOCOX ---
DATE OF PROCEDURE: 10/21/2018 to 10/22/2018 The patient was on room air during the entire study. Oxygen saturation at the start of this study was 89% on the left lateral decubitus position. Heart rate was 70 at that point in time. Oxygen saturations were variable throughout the evening. There was significant artifact. The time spent with an oxygen saturation was around 1 hour and 17 minutes. The longest continuous time with an oxygen desaturation was recorded at 16 minutes. There was some evidence of Ken-Sidhu phenomenon intermittently. IMPRESSION: Variable desaturation with questionable Ken-Sidhu significant hypoxia. RECOMMENDATIONS: An oxygen therapy at night unless there is concern for obstructive sleep apnea and then consider for referral for formal polysomnogram.
--- NOTE | 2018-10-22 10:50 | IPNPDOC ---
Subjective Date Seen The patient was seen on 10/22/18. Subjective Chief Complaint/HPI Patient notes being tired. Did not eat anything yesterday, only had liquids to drink. Constitutional: Denies: Chills, Fever Objective Physical Examination General Exam: Positive: Alert, No Acute Distress Eye Exam: Positive: PERRLA Neck Exam: Positive: Supple; Negative: JVD, thyromegaly Chest Exam: Positive: Clear to auscultation, Normal air movement Heart Exam: Positive: Rate Normal, Regular Rhythm, Normal S1, Normal S2; Negative: Murmurs, Rubs Extremity Exam: Positive: Normal pulses; Negative: Clubbing, Cyanosis, Edema Skin Exam: Positive: Nl turgor and temperature; Negative: Rash, Breakdown Psych Exam: Positive: Mental status NL, Other (depressed) Assessment /Plan Problems (1) Influenza Problem Text: Continue Tamiflu. (2) Acute on chronic diastolic (congestive) heart failure Status: Acute Problem Text: continue with I/o, daily weights, diuresing. Continue Fluid res triction of 1800 ml. Echo and noc ox today. (3) Paroxysmal atrial flutter Status: Chronic Problem Text: rate controlled. on home dose of eliquis (4) Hypertension Status: Chronic Response to Treatment: Stable Problem Text: Dropping low. Stopping Lisinopril. Likely low secondary to decreased oral feeds. (5) Hyperlipidemia Status: Chronic Response to Treatment: Stable (6) QING (obstructive sleep apnea) Status: Chronic Problem Text: non-compliant with CPAP at home, states intolerant in the past. (7) Infiltrate of lung present on imaging of chest Status: Acute Problem Text: appears improved on CXR. Duonebs q 6 hrs and albuterol q2 hrs prn. Respiratory panel ordered. No fever or WBC. No antibiotic coverage indicated at this time. (8) Decreased oral intake Problem Text: Patient has decreased intake since yesterday. Feels weak all over. Likely from flu. Plan/VTE VTE Prophylaxis Ordered?: Yes (eliquis) VS, I&O, 24H, Fishbone Vital Signs/I&O Vital Signs Date Time Temp Pulse Resp B/P (MAP) Pulse Ox O2 Delivery O2 Flow Rate FiO2 10/22/18 07:50 97.0 67 18 102/58 (73) 94 10/21/18 23:08 Room Air I&O- Last 24 Hours up to 6 AM 10/22/18 06:00 Intake Total 480 ml Output Total 1160 ml Balance -680 ml Laboratory Data 24H LABS Laboratory Tests 2 10/21/18 11:28: Bedside Glucose (Misc Panel) 237H 10/21/18 17:22: Bedside Glucose (Misc Panel) 193H 10/21/18 21:15: Bedside Glucose (Misc Panel) 173H 10/22/18 05:36: Nucleated Red Blood Cells % (auto) 0.0, Anion Gap 13, Glomerular Filtration Rate 47.4, Blood Urea Nitrogen 31H, Creatinine 1.21, Sodium Level 130L, Potassium Level 3.4L, Chloride Level 93L, Carbon Dioxide Level 24, Calcium Level 8.0L 10/22/18 10:03: Osmolality 287 CBC/BMP Laboratory Tests 10/22/18 05:36 Red Blood Count 3.61 L, Mean Corpuscular Volume 83.9, Mean Corpuscular He moglobin 29.4, Mean Corpuscular Hemoglobin Concent 35.0, Red Cell Distribution Width 12.7, Calcium Level 8.0 L Microbiology Microbiology 10/18/18 Blood Culture - Preliminary, Resulted No Growth after 72 hours. All specime... 10/18/18 Blood Culture - Preliminary, Resulted No Growth after 72 hours. All specime... 10/20/18 Respiratory Virus Panel (PCR) ([facility]ANI) - Final, Complete Influenza A H1-2009 10/18/18 Urine Culture - Final, Complete GME ATTESTATION GME ATTESTATION My faculty preceptor for this patient encounter was physically present during the encounter and was fully available. All aspects of the patient interview, examination, medical decision making process, and medical care plan development were reviewed and approved by the faculty preceptor. The faculty preceptor is aware and concurs with the plan as stated in the body of this note and will attest to such by his/her cosignature. MILI MOLINA DO Oct 22, 2018 10:50
[2018-10-22 11:51] VITALS: BP 94/53
[2018-10-22 16:00] VITALS: BP 117/66
--- NOTE | 2018-10-22 16:04 | IPNPDOC ---
Subjective Date Seen The patient was seen on 10/21/18. Subjective Chief Complaint/HPI Patient feels tired and not right. Constitutional: Denies: Chills, Fever Cardiovascular: Denies: Chest Pain Objective Physical Examination General Exam: Positive: Alert, No Acute Distress Neck Exam: Positive: Supple Chest Exam: Positive: Clear to auscultation, Normal air movement Heart Exam: Positive: Rate Normal, Regular Rhythm, Normal S1, Normal S2 Extremity Exam: Positive: Normal pulses Skin Exam: Positive: Nl turgor and temperature Psych Exam: Positive: Mental status NL, Mood NL, Oriented x 3 Assessment /Plan Problems (1) Influenza Problem Text: Continue to treat with tamiflu. (2) Acute on chronic diastolic (congestive) heart failure Status: Acute Problem Text: continue with I/o, daily weights, diuresing. Continue Fluid restriction of 1800 ml. Echo and noc ox today. (3) Paroxysmal atrial flutter Status: Chronic Problem Text: rate controlled. on home dose of eliquis (4) Hypertension Status: Chronic Response to Treatment: Stable Problem Text: continue meds (5) Hyperlipidemia Status: Chronic Response to Treatment: Stable (6) QING (obstructive sleep apnea) Status: Chronic Problem Text: non-compliant with CPAP at home, states intolerant in the past. (7) Infiltrate of lung present on imaging of chest Status: Acute Problem Text: appears improved on CXR. Duonebs q 6 hrs and albuterol q2 hrs prn. Respiratory panel ordered. No fever or WBC. No antibiotic coverage indicated at this time. Plan/VTE VTE Prophylaxis Ordered?: Yes (eliquis) VS, I&O, 24H, Fishbone Vital Signs/I&O Vital Signs Date Time Temp Pulse Resp B/P (MAP) Pulse Ox O2 Delivery O2 Flow Rate FiO2 10/22/18 11:51 97.0 71 18 94/53 (67) 97 10/21/18 23:08 Room Air I&O- Last 24 Hours up to 6 AM 10/22/18 06:00 Intake Total 480 ml Output Total 1160 ml Balance -680 ml Laboratory Data 24H LABS Laboratory Tests 2 10/21/18 17:22: Bedside Glucose (Misc Panel) 193H 10/21/18 21:15: Bedside Glucose (Misc Panel) 173H 10/22/18 05:36: Nucleated Red Blood Cells % (auto) 0.0, Anion Gap 13, Glomerular Filtration Rate 47.4, Blood Urea Nitrogen 31H, Creatinine 1.21, Sodium Level 130L, Potassium Level 3.4L, Chloride Level 93L, Carbon Dioxide Level 24, Calcium Level 8.0L 10/22/18 10:03: Osmolality 287 CBC/BMP Laboratory Tests 10/22/18 05:36 Red Blood Count 3.61 L, Mean Corpuscular Volume 83.9, Mean Corpuscular Hemoglobin 29.4, Mean Corpuscular Hemoglobin Concent 35.0, Red Cell Distribution Width 12.7, Calcium Level 8.0 L Microbiology Microbiology 10/18/18 Blood Culture - Preliminary, Resulted No Growth after 72 hours. All specime... 10/18/18 Blood Culture - Preliminary, Resulted No Growth after 72 hours. All specime... 10/20/18 Respiratory Virus Panel (PCR) ([facility]ANI) - Final, Complete Influenza A H1-200810/18/18 Urine Culture - Final, Complete GME ATTESTATION GME ATTESTATION My faculty preceptor for this patient encounter was physically present during the encounter and was fully available. All aspects of the patient interview, examination, medical decision making process, and medical care plan development were reviewed and approved by the faculty preceptor. The faculty preceptor is aware and concurs with the plan as stated in the body of this note and will attest to such by his/her cosignature. MILI MOLINA DO Oct 22, 2018 16:04
[2018-10-22 20:00] VITALS: BP 116/62
[2018-10-22] MEDS: AMIODARONE 200 MG TAB (PACERONE) PO SCH (21:04)
[2018-10-22] MEDS: ROSUVASTATIN 10 MG TAB (CRESTOR) PO SCH (21:04)
[2018-10-23] MEDS: IPRATROPIUM 0.5MG/ALBUTEROL 2.5MG INH SOL UD 3ML (DUONEB)(J7620) NEB SCH ×4 (01:37→19:57)
[2018-10-23 04:00] VITALS: BP 99/58
[2018-10-23] MEDS: SLF 3 ML SYR IV SCH ×3 (06:00→22:00)
[2018-10-23] MEDS: LEVOTHYROXINE 100MCG TABLET (0.1MG) PO SCH (06:00)
[2018-10-23 06:03] LABS: HEMATOCRIT 32.4 % (36.0-47.0); HEMOGLOBIN 11.2 g/dl (12.0-15.5); MEAN CORPUSCULAR HEMOGLOBIN 29.4 pg (27.0-33.0); MEAN CORPUSCULAR HGB CONC 34.6 g/dl (32.0-36.5); PLATELET COUNT, AUTOMATED 200 10^3/uL (150-450); RED BLOOD COUNT 3.81 10^6/uL (4.00-5.40); WHITE BLOOD COUNT 5.8 10^3/uL (4.0-10.0)
[2018-10-23 06:31] LABS: CALCIUM LEVEL 8.4 MG/DL (8.8-10.2); CREATININE FOR GFR 1.41 MG/DL (0.55-1.30); GLOMERULAR FILTRATION RATE 39.7 (>45); POTASSIUM SERUM 3.9 MEQ/L (3.5-5.1)
[2018-10-23 07:44] VITALS: BP 119/69
--- NOTE | 2018-10-23 08:23 | REP ---
Clinical: Acute renal failure. Technique: Real time pitts scale ultrasound examination using curved array transducer. Findings: The patient is known to have congenital horseshoe kidney. Right moiety measures 10.0 x 4.1 x 4.3 cm and appears normal without hydronephrosis, nephrolithiasis, cystic or mass lesion. Left moiety measures 10.8 x 3.7 x 4.3 cm and appears normal without hydronephrosis, nephrolithiasis, cystic or mass lesion. Bladder is collapsed. Impression: Horseshoe kidney. No hydronephrosis. Electronically Signed by Jesu Guardado MD 10/23/2018 08:15 A
[2018-10-23] MEDS: HumaLOG INSULIN (NovoLOG) PER UNIT SC SCH ×4 (08:36→21:00)
[2018-10-23] MEDS: APIXABAN 5 MG TAB (ELIQUIS) PO SCH ×2 (08:37→21:58)
[2018-10-23] MEDS: ACETAMINOPHEN TAB 650MG DOSE (2X325MG) PO PRN (08:37)
[2018-10-23] MEDS: OSELTAMIVIR PHOSPHATE 75 MG CAP (TAMIFLU) PO SCH ×2 (08:38→21:00)
[2018-10-23] MEDS: FLUTICASONE PROP 0.05% NASAL SPRAY 16 GM (FLONASE) SCH (08:38)
--- NOTE | 2018-10-23 11:11 | IPNPDOC ---
Subjective Date Seen The patient was seen on 10/23/18. Subjective Chief Complaint/HPI slowly improving JAMES Constitutional: Denies: Chills, Fever Eyes: Denies: Pain Skin: Denies: Rash Pulmonary: Reports: Dyspnea, Cough Cardiovascular: Denies: Chest Pain Objective Physical Examination General Exam: Positive: Alert, No Acute Distress Eye Exam: Positive: PERRLA Neck Exam: Positive: Supple; Negative: JVD, thyromegaly Chest Exam: Positive: Clear to auscultation, Normal air movement Heart Exam: Positive: Rate Normal, Regular Rhythm, Normal S1, Normal S2; Negative: Murmurs, Rubs Extremity Exam: Positive: Normal pulses; Negative: Clubbing, Cyanosis, Edema Skin Exam: Positive: Nl turgor and temperature; Negative: Rash, Breakdown Psych Exam: Positive: Mental status NL, Other (depressed) Assessment /Plan Problems (1) Systolic and diastolic CHF, acute on chronic Status: Acute Problem Text: Euvolemic at this time 10/23 SBP 90s c up to 48/1.4, 3.9 (baseline cr 1.0-1.1); therefore, lisin/fur held (admission BNP 4482, today 477) (2) Influenza Problem Text: D4/5 oselt (3) Paroxysmal atrial flutter Status: Chronic Problem Text: rate controlled on HD ami anticoag on HD apix (4) QING (obstructive sleep apnea) Status: Chronic Problem Text: non-compliant with CPAP at home, states intolerant in the past. (5) Physical deconditioning Status: Acute Problem Text: 10/21 not safe per PT-favor STR +/- SNF [place] (had lived alone) Plan/VTE VTE Prophylaxis Ordered?: Yes (eliquis) VS, I&O, 24H, Fishbone Vital Signs/I&O Vital Signs Date Time Temp Pulse Resp B/P (MAP) Pulse Ox O2 Delivery O2 Flow Rate FiO2 10/23/18 07:44 97.2 70 18 119/69 (86) 97 10/21/18 23:08 Room Air I&O- Last 24 Hours up to 6 AM 10/23/18 06:00 Intake Total 720 ml Output Total 1225 ml Balance -505 ml Laboratory Data 24H LABS Laboratory Tests 2 10/22/18 12:09: Bedside Glucose (Misc Panel) 277H 10/22/18 16:39: Bedside Glucose (Misc Panel) 159H 10/22/18 21:02: Bedside Glucose (Misc Panel) 215H 10/23/18 05:40: Nucleated Red Blood Cells % (auto) 0.0, Anion Gap 10, Glomerular Filtration Rate 39.7L, Blood Urea Nitrogen 48#H, Creatinine 1.41H, Sodium Level 130L, Potassium Level 3.9, Chloride Level 95L, Carbon Dioxide Level 25, Calcium Level 8.4L, ER-Nea-S-Type Natriuretic Peptide 477H CBC/BMP Laboratory Tests 10/23/18 05:40 Red Blood Count 3.81 L, Mean Corpuscular Volume 85.0, Mean Corpuscular Hemoglobin 29.4, Mean Corpuscular Hemoglobin Concent 34.6, Red Cell Distribution Width 12.9, Calcium Level 8.4 L Microbiology Microbiology 10/18/18 Blood Culture - Preliminary, Resulted No Growth after 72 hours. All specime... 10/18/18 Blood Culture - Preliminary, Resulted No Growth after 72 hours. All specime... 10/20/18 Respiratory Virus Panel (PCR) ([facility]) - Final, Complete Influenza A H1-2009 10/18/18 Urine Culture - Final, Complete Bipin Myers M.D. Oct 23, 2018 11:11
[2018-10-23 15:00] VITALS: BP 124/64
[2018-10-23] MEDS ORDERED: TRIAMCINOLONE ACETONIDE 0.025 % 80 GM CREAM TOP SCH (21:00)
[2018-10-23] MEDS ORDERED: LIDOCAINE 4% CREAM 5GM (LMX4) TOP PRN (21:30)
[2018-10-23] MEDS ORDERED: TRIAMCINOLONE ACET 0.1% CREAM 80 GM TOP PRN (21:45)
[2018-10-23] MEDS: AMIODARONE 200 MG TAB (PACERONE) PO SCH (21:57)
[2018-10-23 22:00] VITALS: BP 110/54
[2018-10-24] MEDS: IPRATROPIUM 0.5MG/ALBUTEROL 2.5MG INH SOL UD 3ML (DUONEB)(J7620) NEB SCH ×4 (05:35→19:32)
[2018-10-24 06:01] VITALS: BP 115/58
[2018-10-24] MEDS: LEVOTHYROXINE 100MCG TABLET (0.1MG) PO SCH (06:04)
[2018-10-24] MEDS: SLF 3 ML SYR IV SCH ×3 (06:05→21:46)
[2018-10-24 07:12] LABS: HEMATOCRIT 32.2 % (36.0-47.0); HEMOGLOBIN 10.9 g/dl (12.0-15.5); MEAN CORPUSCULAR HEMOGLOBIN 29.1 pg (27.0-33.0); MEAN CORPUSCULAR HGB CONC 33.9 g/dl (32.0-36.5); MEAN CORPUSCULAR VOLUME 85.9 fl (80.0-96.0); PLATELET COUNT, AUTOMATED 218 10^3/uL (150-450); RED BLOOD COUNT 3.75 10^6/uL (4.00-5.40); WHITE BLOOD COUNT 6.6 10^3/uL (4.0-10.0)
[2018-10-24 07:40] LABS: CALCIUM LEVEL 8.6 MG/DL (8.8-10.2); CREATININE FOR GFR 1.14 MG/DL (0.55-1.30); GLOMERULAR FILTRATION RATE 50.8 (>45); POTASSIUM SERUM 3.7 MEQ/L (3.5-5.1)
[2018-10-24] MEDS: APIXABAN 5 MG TAB (ELIQUIS) PO SCH ×2 (09:01→21:45)
[2018-10-24] MEDS: HumaLOG INSULIN (NovoLOG) PER UNIT SC SCH ×4 (09:01→21:45)
[2018-10-24] MEDS: FLUTICASONE PROP 0.05% NASAL SPRAY 16 GM (FLONASE) SCH (09:02)
[2018-10-24] MEDS: OSELTAMIVIR PHOSPHATE 75 MG CAP (TAMIFLU) PO SCH ×2 (09:02→21:46)
[2018-10-24] MEDS: FUROSEMIDE 40 MG TAB PO SCH (09:06)
--- NOTE | 2018-10-24 12:54 | IPNPDOC ---
Subjective Date Seen The patient was seen on 10/24/18. Subjective Chief Complaint/HPI malaise, dizzy, shaky inside. Constitutional: Denies: Chills ENT: Denies: Head Aches Pulmonary: Denies: Dyspnea, Cough Cardiovascular: Denies: Chest Pain, Palpitations Gastrointestinal: Reports: Nausea (not eating well.) Hematologic: Denies: Bruising Neurological: Denies: Weakness, Numbness Psych: Reports: Anxiety Objective Physical Examination General Exam: Positive: Alert, No Acute Distress Eye Exam: Positive: PERRLA Neck Exam: Positive: Supple Chest Exam: Positive: Clear to auscultation, Normal air movement Heart Exam: Positive: Rate Normal, Regular Rhythm, Normal S1, Normal S2 Extremity Exam: Positive: Normal pulses Skin Exam: Positive: Nl turgor and temperature Psych Exam: Positive: Mental status NL, Mood NL, Oriented x 3 Assessment /Plan Problems (1) Influenza Problem Text: Continue to treat with tamiflu. will complete today. (2) Acute on chronic diastolic (congestive) heart failure Status: Acute Problem Text: continue with I/o, daily weights, diuresing. Continue Fluid restriction of 1800 ml. Echo and noc ox today. (3) Paroxysmal atrial flutter Status: Chronic Problem Text: rate controlled. on home dose of eliquis but patient is convinced she has been having increasing malaise, dizziness, shakiness, and sores in mouth since being on amiodarone and eliquis. more likely related to amiodarone. will stop for now. may need alternate agent for rate control. (4) Hypertension Status: Chronic Response to Treatment: Stable Problem Text: continue meds once her BUN/Creat have returned to baseline. (5) Hyperlipidemia Status: Chronic Response to Treatment: Stable (6) QING (obstructive sleep apnea) Status: Chronic Problem Text: non-compliant with CPAP at home, states intolerant in the past. (7) Infiltrate of lung present on imaging of chest Status: Acute Problem Text: appears improved on CXR. Duonebs q 6 hrs and albuterol q2 hrs prn. Respiratory panel ordered. No fever or WBC. No antibiotic coverage indicated at this time. Plan/VTE VTE Prophylaxis Ordered?: Yes (eliquis) VS, I&O, 24H, Fishbone Vital Signs/I&O Vital Signs Date Time Temp Pulse Resp B/P (MAP) Pulse Ox O2 Delivery O2 Flow Rate FiO2 10/24/18 06:01 96.8 70 18 115/58 (77) 93 10/21/18 23:08 Room Air I&O- Last 24 Hours up to 6 AM 10/24/18 05:59 Intake Total 600 ml Output Total 200 ml Balance 400 ml Laboratory Data 24H LABS Laboratory Tests 2 10/23/18 17:08: Bedside Glucose (Misc Panel) 212H 10/23/18 20:48: Bedside Glucose (Misc Panel) 274H 10/24/18 06:31: Nucleated Red Blood Cells % (auto) 0.0, Anion Gap 11, Glomerular Filtration Rate 50.8, Blood Urea Nitrogen 39H, Creatinine 1.14, Sodium Level 132L, Potassium Level 3.7, Chloride Level 96L, Carbon Dioxide Level 25, Calcium Level 8.6L 10/24/18 11:35: Bedside Glucose (Misc Panel) 319H CBC/BMP Laboratory Tests 10/24/18 06:31 Red Blood Count 3.75 L, Mean Corpuscular Volume 85.9, Mean Corpuscular Hemoglobin 29.1, Mean Corpuscular Hemoglobin Concent 33.9, Red Cell Distribution Width 13.0, Calcium Level 8.6 L Microbiology Microbiology 10/18/18 Blood Culture - Final, Complete NO GROWTH AFTER 5 DAYS 10/18/18 Blood Culture - Final, Complete NO GROWTH AFTER 5 DAYS 10/20/18 Respiratory Virus Panel (PCR) ([facility]) - Final, Complete Influenza A H1-200810/18/18 Urine Culture - Final, Complete Uriel Quinonez MD Oct 24, 2018 12:54
[2018-10-24 14:00] VITALS: BP 136/82
[2018-10-24 21:00] VITALS: BP 104/58
[2018-10-24] MEDS: ROSUVASTATIN 10 MG TAB (CRESTOR) PO SCH (21:45)
[2018-10-25] MEDS: IPRATROPIUM 0.5MG/ALBUTEROL 2.5MG INH SOL UD 3ML (DUONEB)(J7620) NEB SCH ×4 (02:00→21:40)
[2018-10-25 04:16] VITALS: BP 132/60
[2018-10-25] MEDS: LEVOTHYROXINE 100MCG TABLET (0.1MG) PO SCH (05:46)
[2018-10-25] MEDS: SLF 3 ML SYR IV SCH ×3 (05:46→20:01)
[2018-10-25 06:56] LABS: HEMOGLOBIN 10.1 g/dl (12.0-15.5); MEAN CORPUSCULAR HEMOGLOBIN 29.7 pg (27.0-33.0); MEAN CORPUSCULAR HGB CONC 34.8 g/dl (32.0-36.5); MEAN CORPUSCULAR VOLUME 85.3 fl (80.0-96.0); PLATELET COUNT, AUTOMATED 280 10^3/uL (150-450)
--- NOTE | 2018-10-25 09:08 | IPNPDOC ---
Subjective Date Seen The patient was seen on 10/25/18. Subjective Chief Complaint/HPI c/o JAMES, cough and "the bottom of my lungs hurt when I take deep breaths" - holding BL lateral lower rib area c/o nausea since admission Constitutional: Denies: Chills, Fever Pulmonary: Reports: Dyspnea, Cough, Pleuritic Chest Pain Cardiovascular: Denies: Chest Pain, Palpitations, Orthopnea Gastrointestinal: Reports: Nausea; Denies: Vomiting, Abdominal Pain, Diarrhea, Constipation Objective Physical Examination General Exam: Positive: Alert, No Acute Distress Eye Exam: Positive: PERRLA Neck Exam: Positive: Supple Chest Exam: Positive: Wheezing ( breath sounds with some exp wheezes BL) Heart Exam: Positive: Rate Normal, Regular Rhythm, Normal S1, Normal S2 Abdomen Exam: Positive: Normal bowel sounds, Soft; Negative: Tenderness Extremity Exam: Negative: Edema Psych Exam: Positive: Mental status NL, Mood NL, Oriented x 3 Assessment /Plan Problems (1) Influenza Problem Text: 10/25 - s/p Tamiflu x 5 days. Still with SOB and wheezing. Cont nebs. Add prednisone for bronchospasm. Repeat CXR was done 10/19 showing improved inftilrate on CXR. Still no white count or fever so no role for abx Noct Ox 10/22 - showed some desaturation - Has h/o known QING per study done by Neurology but refused CPAP Oxygen levels appear stable per vitals signs (2) Acute on chronic diastolic (congestive) heart failure Status: Acute Problem Text: Overall good diuresis throughout admission. Lasix po held yesterday due to decline in RF. RF better today - will restart po Lasix. continue with I/o, daily weights, diuresing. Continue Fluid restriction of 1800 ml. Echo showed EF 45% (3) Paroxysmal atrial flutter Status: Chronic Problem Text: 10/25 - rate controlled. on home dose of eliquis but patient is convinced she has been having increasing malaise, dizziness, shakiness, and sores in mouth since being on amiodarone and eliquis. more likely related to amiodarone. Amiodarone held yesterday She is a poor historian - difficult to clearly determine how long her symptoms have been going on. (4) Hypertension Status: Chronic Response to Treatment: Stable Problem Text: continue meds once her BUN/Creat have returned to baseline. (5) Hyperlipidemia Status: Chronic Response to Treatment: Stable (6) QING (obstructive sleep apnea) Status: Chronic Problem Text: non-compliant with CPAP at home, states intolerant in the past. (7) Infiltrate of lung present on imaging of chest Status: Acute Problem Text: appears improved on CXR. Duonebs q 6 hrs and albuterol q2 hrs prn. Respiratory panel ordered. No fever or WBC. No antibiotic coverage indicated at this time. (8) Diabetes type 2, uncontrolled Status: Chronic Problem Text: Cont SSI - blood sugars running 20 - 300s Restart Lantus (normally on 38 units daily) cont to hold Glimeperide (normally on 4 BID) Plan/VTE VTE Prophylaxis Ordered?: Yes (eliquautumn) VS, I&O, 24H, Fishbone Vital Signs/I&O Vital Signs Date Time Temp Pulse Resp B/P (MAP) Pulse Ox O2 Delivery O2 Flow Rate FiO2 10/25/18 04:16 97.6 70 20 132/60 (84) 94 10/21/18 23:08 Room Air I&O- Last 24 Hours up to 6 AM 10/25/18 06:00 Intake Total 1400 ml Balance 1400 ml Laboratory Data 24H LABS Laboratory Tests 2 10/24/18 11:35: Bedside Glucose (Misc Panel) 319H 10/24/18 17:10: Bedside Glucose (Misc Panel) 240H 10/24/18 20:49: Bedside Glucose (Misc Panel) 313H 10/25/18 06:38: Nucleated Red Blood Cells % (auto) 0.0 CBC/BMP Laboratory Tests 10/25/18 06:38 Red Blood Count 3.40 L, Mean Corpuscular Volume 85.3, Mean Corpuscular Hemoglobin 29.7, Mean Corpuscular Hemoglobin Concent 34.8, Red Cell Distribution Width 12.9 Microbiology Microbiology 10/18/18 Blood Culture - Final, Complete NO GROWTH AFTER 5 DAYS 10/18/18 Blood Culture - Final, Complete NO GROWTH AFTER 5 DAYS 10/20/18 Respiratory Virus Panel (PCR) ([facility]) - Final, Complete Influenza A H1-2009 10/18/18 Urine Culture - Final, Complete Attending Note Attending Note agree with findings and plan as noted by Katherin Mei. ARSEN MEI PA-C Oct 25, 2018 09:08 Uriel Quinonez MD Oct 27, 2018 08:37
[2018-10-25 09:29] LABS: CALCIUM LEVEL 8.8 MG/DL (8.8-10.2); CREATININE FOR GFR 1.13 MG/DL (0.55-1.30); GLOMERULAR FILTRATION RATE 51.3 (>45); POTASSIUM SERUM 3.7 MEQ/L (3.5-5.1)
[2018-10-25] MEDS: HumaLOG INSULIN (NovoLOG) PER UNIT SC SCH ×4 (09:32→20:00)
[2018-10-25] MEDS: predniSONE 20 MG TAB PO SCH (09:32)
[2018-10-25] MEDS: APIXABAN 5 MG TAB (ELIQUIS) PO SCH ×2 (09:32→19:58)
[2018-10-25] MEDS: FLUTICASONE PROP 0.05% NASAL SPRAY 16 GM (FLONASE) SCH (09:33)
[2018-10-25 14:00] VITALS: BP 148/68
[2018-10-25 20:00] VITALS: BP 115/64
[2018-10-25] MEDS ORDERED: LEVEMIR (INSULIN DETEMIR) 1 UNITS/0.01ML SC SCH (21:00)
[2018-10-26] MEDS: IPRATROPIUM 0.5MG/ALBUTEROL 2.5MG INH SOL UD 3ML (DUONEB)(J7620) NEB SCH ×5 (02:00→23:38)
[2018-10-26 05:30] VITALS: BP 134/71
[2018-10-26] MEDS: SLF 3 ML SYR IV SCH (05:38)
[2018-10-26] MEDS: LEVOTHYROXINE 100MCG TABLET (0.1MG) PO SCH (05:38)
[2018-10-26 07:27] LABS: CALCIUM LEVEL 8.6 MG/DL (8.8-10.2); CREATININE FOR GFR 1.18 MG/DL (0.55-1.30); GLOMERULAR FILTRATION RATE 48.8 (>45); POTASSIUM SERUM 3.8 MEQ/L (3.5-5.1)
[2018-10-26] MEDS: FLUTICASONE PROP 0.05% NASAL SPRAY 16 GM (FLONASE) SCH (08:26)
[2018-10-26] MEDS: APIXABAN 5 MG TAB (ELIQUIS) PO SCH ×2 (08:26→21:26)
[2018-10-26] MEDS: HumaLOG INSULIN (NovoLOG) PER UNIT SC SCH ×4 (08:26→21:26)
[2018-10-26] MEDS: predniSONE 20 MG TAB PO SCH (08:26)
--- NOTE | 2018-10-26 09:45 | IPNPDOC ---
Subjective Date Seen The patient was seen on 10/26/18. Subjective Chief Complaint/HPI Still with some JAMES and lower BL rib pain with deep breaths Constitutional: Denies: Chills, Fever Pulmonary: Reports: Dyspnea, Cough Cardiovascular: Denies: Chest Pain, Palpitations Gastrointestinal: Denies: Nausea, Vomiting, Abdominal Pain, Diarrhea Objective Physical Examination General Exam: Positive: Alert, No Acute Distress Eye Exam: Positive: PERRLA Neck Exam: Positive: Supple Chest Exam: Positive: Clear to auscultation; Negative: Rales, Rhonchi, Wheezing Heart Exam: Positive: Rate Normal, Regular Rhythm, Normal S1, Normal S2 Abdomen Exam: Positive: Normal bowel sounds, Soft; Negative: Tenderness Extremity Exam: Negative: Edema Psych Exam: Positive: Mental status NL, Mood NL, Oriented x 3 Assessment /Plan Problems (1) Influenza Problem Text: 10/26 - Resp status stable. s/p Tamiflu x 5 days. Cont nebs & prednisone for bronchospasm. Repeat CXR was done 10/19 showing improved inftilrate on CXR. Still no white count or fever so no role for abx Noct Ox 10/22 - showed some desaturation - Has h/o known QING per study done by Neurology but refused CPAP Oxygen levels appear stable per vitals signs (2) Acute on chronic diastolic (congestive) heart failure Status: Acute Problem Text: Overall good diuresis throughout admission. Lasix po held yesterday due to decline in RF. RF better today - Restart po Lasix. continue with I/o, daily weights, diuresing. Continue Fluid restriction of 1800 ml. Echo showed EF 45% (3) Paroxysmal atrial flutter Status: Chronic Problem Text: 10/26 - rate remains controlled with amiodarone on hold for side effects cont Eliquis (4) Hypertension Status: Chronic Response to Treatment: Stable Problem Text: continue meds once her BUN/Creat have returned to baseline. (5) Hyperlipidemia Status: Chronic Response to Treatment: Stable (6) QING (obstructive sleep apnea) Status: Chronic Problem Text: non-compliant with CPAP at home, states intolerant in the past. (7) Infiltrate of lung present on imaging of chest Status: Acute Problem Text: appears improved on CXR. Duonebs q 6 hrs and albuterol q2 hrs prn. Respiratory panel ordered. No fever or WBC. No antibiotic coverage indicated at this time. (8) Diabetes type 2, uncontrolled Status: Chronic Problem Text: 10/26/18 Cont SSI - Lantus restarted - increase slightly (normally on 38 units daily) cont to hold Glimeperide (normally on 4 BID) Plan/VTE VTE Prophylaxis Ordered?: Yes (eliquis) Plan Therapy: PT Disposition SNF today VS, I&O, 24H, Fishbone Vital Signs/I&O Vital Signs Date Time Temp Pulse Resp B/P (MAP) Pulse Ox O2 Delivery O2 Flow Rate FiO2 10/26/18 05:30 99.2 69 18 134/71 (92) 99 10/21/18 23:08 Room Air I&O- Last 24 Hours up to 6 AM 10/26/18 06:00 Intake Total 600 ml Balance 600 ml Laboratory Data 24H LABS Laboratory Tests 2 10/25/18 11:37: Bedside Glucose (Misc Panel) 417H 10/25/18 17:16: Bedside Glucose (Misc Panel) 315H 10/25/18 19:20: Bedside Glucose (Misc Panel) 386H 10/26/18 06:51: Anion Gap 9, Glomerular Filtration Rate 48.8, Blood Urea Nitrogen 40H, Creatinine 1.18, Sodium Level 135L, Potassium Level 3.8, Chloride Level 98, Carbon Dioxide Level 28, Calcium Level 8.6L CBC/BMP Laboratory Tests 10/26/18 06:51 Calcium Level 8.6 L Microbiology Microbiology 10/18/18 Blood Culture - Final, Complete NO GROWTH AFTER 5 DAYS 10/18/18 Blood Culture - Final, Complete NO GROWTH AFTER 5 DAYS 10/20/18 Respiratory Virus Panel (PCR) ([facility]) - Final, Complete Influenza A H1-200810/18/18 Urine Culture - Final, Complete Attending Note Attending Note patient seen and examined. agree with plan as documented by Katherin Mei. ARSEN MEI PA-C Oct 26, 2018 09:45 Uriel Quinonez MD Oct 27, 2018 08:39
[2018-10-26] MEDS: FUROSEMIDE 40 MG TAB PO SCH (09:57)
[2018-10-26 14:00] VITALS: BP 127/62
[2018-10-26] MEDS ORDERED: LEVEMIR (INSULIN DETEMIR) 1 UNITS/0.01ML SC SCH (21:00)
[2018-10-26] MEDS: ROSUVASTATIN 10 MG TAB (CRESTOR) PO SCH (21:26)
[2018-10-27 06:00] VITALS: BP 142/73
[2018-10-27] MEDS: LEVOTHYROXINE 100MCG TABLET (0.1MG) PO SCH (06:50)
[2018-10-27] MEDS: HumaLOG INSULIN (NovoLOG) PER UNIT SC SCH ×4 (07:30→21:09)
[2018-10-27] MEDS: IPRATROPIUM 0.5MG/ALBUTEROL 2.5MG INH SOL UD 3ML (DUONEB)(J7620) NEB SCH ×3 (07:32→20:31)
[2018-10-27 08:46] LABS: CALCIUM LEVEL 8.8 MG/DL (8.8-10.2); CREATININE FOR GFR 1.24 MG/DL (0.55-1.30); GLOMERULAR FILTRATION RATE 46.1 (>45); POTASSIUM SERUM 3.7 MEQ/L (3.5-5.1)
[2018-10-27] MEDS: FLUTICASONE PROP 0.05% NASAL SPRAY 16 GM (FLONASE) SCH (09:00)
--- NOTE | 2018-10-27 09:08 | IPNPDOC ---
Subjective Date Seen The patient was seen on 10/27/18. Subjective Chief Complaint/HPI c/o increased cough with bownish sputum production. continues to c/o BL lower lateral rib pain with cough and deep breath Constitutional: Denies: Chills, Fever Pulmonary: Reports: Dyspnea, Cough Cardiovascular: Denies: Chest Pain, Palpitations, Orthopnea Gastrointestinal: Denies: Nausea, Vomiting, Abdominal Pain, Diarrhea, Constipation Objective Physical Examination General Exam: Positive: Alert, No Acute Distress (coughing) Eye Exam: Positive: PERRLA Neck Exam: Positive: Supple Chest Exam: Positive: Clear to auscultation; Negative: Rales, Rhonchi, Wheezing Heart Exam: Positive: Rate Normal, Regular Rhythm, Normal S1, Normal S2 Abdomen Exam: Positive: Normal bowel sounds, Soft; Negative: Tenderness Extremity Exam: Negative: Edema Psych Exam: Positive: Mental status NL, Mood NL, Oriented x 3 Assessment /Plan Problems (1) Influenza Problem Text: 10/27 - Influenza screen positive 10/20 - likely flu was present on admission. Now coughing up purulent sputum with increased cough. Tmax 99.4. May have supperimposed bacterial infection such as staph. Get CXR, CBCD, sputum C & S, and MRSA screen. Start Doxy empirically (Multiple drug allergies) 10/26 - Resp status stable. s/p Tamiflu x 5 days. Cont nebs & prednisone for bronchospasm. Repeat CXR was done 10/19 showing improved inftilrate on CXR. Still no white count or fever so no role for abx Noct Ox 10/22 - showed some desaturation - Has h/o known QING per study done by Neurology but refused CPAP Oxygen levels appear stable per vitals signs (2) Acute on chronic diastolic (congestive) heart failure Status: Acute Response to Treatment: Stable Problem Text: 10/27 - Cont po Lasix now. Appears euvolemic I & O inaccurate. Continue Fluid restriction of 1800 ml. Echo showed EF 45% (3) Paroxysmal atrial flutter Status: Chronic Problem Text: 10/26 - rate remains controlled with amiodarone on hold for side effects cont Eliquis (4) Hypertension Status: Chronic Response to Treatment: Stable Problem Text: continue meds once her BUN/Creat have returned to baseline. (5) Hyperlipidemia Status: Chronic Response to Treatment: Stable (6) QING (obstructive sleep apnea) Status: Chronic Problem Text: non-compliant with CPAP at home, states intolerant in the past. (7) Infiltrate of lung present on imaging of chest Status: Acute Problem Text: appears improved on CXR. Duonebs q 6 hrs and albuterol q2 hrs prn. Respiratory panel ordered. No fever or WBC. No antibiotic coverage jose manuel cated at this time. (8) Diabetes type 2, uncontrolled Status: Chronic Problem Text: 10/26/18 Cont SSI - Lantus restarted - increase slightly (normally on 38 units daily) cont to hold Glimeperide (normally on 4 BID) Plan/VTE VTE Prophylaxis Ordered?: Yes (eliquis) Plan Therapy: PT Disposition cont SNF for now VS, I&O, 24H, Fishbone Vital Signs/I&O Vital Signs Date Time Temp Pulse Resp B/P (MAP) Pulse Ox O2 Delivery O2 Flow Rate FiO2 10/27/18 06:00 99.4 70 18 142/73 (96) 96 10/21/18 23:08 Room Air I&O- Last 24 Hours up to 6 AM 10/27/18 06:00 Intake Total 1440 ml Output Total 0 ml Balance 1440 ml Laboratory Data 24H LABS Laboratory Tests 2 10/26/18 11:27: Bedside Glucose (Misc Panel) 367H 10/26/18 17:11: Bedside Glucose (Misc Panel) 431H 10/26/18 19:50: Bedside Glucose (Misc Panel) 447H 10/27/18 07:40: Anion Gap 10, Glomerular Filtration Rate 46.1, Blood Urea Nitrogen 40H, Creatinine 1.24, Sodium Level 135L, Potassium Level 3.7, Chloride Level 98, Carbon Dioxide Level 27, Calcium Level 8.8 CBC/BMP Laboratory Tests 10/27/18 07:40 Calcium Level 8.8 Microbiology Microbiology 10/18/18 Blood Culture - Final, Complete NO GROWTH AFTER 5 DAYS 10/18/18 Blood Culture - Final, Complete NO GROWTH AFTER 5 DAYS 10/20/18 Respiratory Virus Panel (PCR) ([facility]) - Final, Complete Influenza A H1-200810/18/18 Urine Culture - Final, Complete ARSEN MEI PA-C Oct 27, 2018 09:08
[2018-10-27] MEDS: APIXABAN 5 MG TAB (ELIQUIS) PO SCH ×2 (09:10→21:09)
[2018-10-27] MEDS: FUROSEMIDE 40 MG TAB PO SCH (09:10)
[2018-10-27] MEDS: DOXYCYCLINE HYCLATE 100 MG TAB PO SCH ×2 (09:10→21:09)
[2018-10-27] MEDS: predniSONE 20 MG TAB PO SCH (09:10)
--- NOTE | 2018-10-27 10:22 | REP ---
CHEST X-RAY: Two views. HISTORY: Cough and shortness of breath. COMPARISON STUDY: October 19, 2018. 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 Heart size is borderline unchanged. Pulmonary vasculature is not increased. There are increased markings in the right base today, suspicious for new infiltrate. Pleural angles are sharp. No bony abnormality is seen. IMPRESSION: Increased markings right mid and lower lung zone today consistent with new infiltrate. Borderline heart size with pacemaker. Electronically Signed by Demetri Carpenter MD 10/27/2018 11:20 A
[2018-10-27 11:20] LABS: BASO % 0.3 % (0.0-1.0); EOS # 0.1 10^3/uL (0.0-0.50); HEMATOCRIT 30.1 % (36.0-47.0); HEMOGLOBIN 10.2 g/dl (12.0-15.5); LYMPH # 1.5 10^3/uL (1.5-4.5); LYMPH % 14.8 % (24.0-44.0); MEAN CORPUSCULAR HEMOGLOBIN 29.7 pg (27.0-33.0); MEAN CORPUSCULAR HGB CONC 33.9 g/dl (32.0-36.5); MEAN CORPUSCULAR VOLUME 87.8 fl (80.0-96.0); MONO # 0.8 10^3/uL (0.0-0.8); MONO % 8.1 % (0.0-5.0); NEUTROPHILS # 6.9 10^3/uL (1.8-7.7); NEUTROPHILS % 70.9 % (36.0-66.0); PLATELET COUNT, AUTOMATED 365 10^3/uL (150-450); RED BLOOD COUNT 3.43 10^6/uL (4.00-5.40); WHITE BLOOD COUNT 9.8 10^3/uL (4.0-10.0)
[2018-10-27 14:00] VITALS: BP 128/65
[2018-10-27 20:00] VITALS: BP 145/75
[2018-10-27] MEDS: LEVEMIR (INSULIN DETEMIR) 1 UNITS/0.01ML SC SCH (21:08)
[2018-10-28] MEDS: IPRATROPIUM 0.5MG/ALBUTEROL 2.5MG INH SOL UD 3ML (DUONEB)(J7620) NEB SCH ×4 (01:02→19:42)
[2018-10-28] MEDS: LEVOTHYROXINE 100MCG TABLET (0.1MG) PO SCH (05:53)
[2018-10-28 06:00] VITALS: BP 124/60
[2018-10-28] MEDS: HumaLOG INSULIN (NovoLOG) PER UNIT SC SCH ×4 (07:30→20:52)
[2018-10-28] MEDS: FUROSEMIDE 40 MG TAB PO SCH (08:26)
[2018-10-28] MEDS: APIXABAN 5 MG TAB (ELIQUIS) PO SCH ×2 (08:26→20:53)
--- NOTE | 2018-10-28 08:26 | IPNPDOC ---
Subjective Date Seen The patient was seen on 10/28/18. Subjective Chief Complaint/HPI continues to c/o pain around both sides of her lower rib cage when she coughs. Difficultly raising sputum. SOB with ambulation. Constitutional: Denies: Chills, Fever Pulmonary: Reports: Dyspnea, Cough Cardiovascular: Denies: Chest Pain Gastrointestinal: Denies: Nausea, Vomiting, Abdominal Pain, Diarrhea, Constipation Genitourinary: Denies: Dysuria Objective Physical Examination General Exam: Positive: Alert, No Acute Distress (bright and alert, breathing comfortably) Eye Exam: Positive: PERRLA Neck Exam: Positive: Supple Chest Exam: Positive: Clear to auscultation, Other (tender along lower ant/lateral rib edges BL. ); Negative: Rales, Rhonchi, Wheezing Heart Exam: Positive: Rate Normal, Regular Rhythm, Normal S1, Normal S2 Abdomen Exam: Positive: Normal bowel sounds, Soft; Negative: Tenderness Extremity Exam: Negative: Edema Skin Exam: Positive: Other skin issue (bruising on chest and left thigh. No rashes. ) Psych Exam: Positive: Mental status NL, Mood NL, Oriented x 3 Assessment /Plan Problems (1) Nosocomial pneumonia Status: Acute Problem Text: 10/28 - CXR: Increased markings right mid and lower lung zone today consistent with new infiltrate. Borderline heart size with pacemaker. Will treat for nosocomial pneumonia with Meropenem and Vanco until MRSA screen and sputum cultures return. Staph infection possible considering current flu. cont nebs Add Mucinex (2) Influenza Problem Text: 10/28 - flu screen positive 10/20 - likely present on admission. S/P Tamiflu x 5 days 10/27 - Influenza screen positive 10/20 - likely flu was present on admission. Now coughing up purulent sputum with increased cough. Tmax 99.4. May have supperimposed bacterial infection such as staph. Get CXR, CBCD, sputum C & S, and MRSA screen. Start Doxy empirically (Multiple drug allergies) 10/26 - Resp status stable. s/p Tamiflu x 5 days. Cont nebs & prednisone for bronchospasm. Repeat CXR was done 10/19 showing improved inftilrate on CXR. Still no white count or fever so no role for abx Noct Ox 10/22 - showed some desaturation - Has h/o known QING per study done by Neurology but refused CPAP Oxygen levels appear stable per vitals signs (3) Acute on chronic diastolic (congestive) heart failure Status: Resolved Response to Treatment: Stable Problem Text: 10/28 - compensated on po Lasix 10/27 - Cont po Lasix now. Appears euvolemic I & O inaccurate. Continue Fluid restriction of 1800 ml. Echo showed EF 45% (4) Paroxysmal atrial flutter Status: Chronic Problem Text: 10/26 - rate remains controlled with amiodarone on hold for side effects cont Eliquis (5) Hypertension Status: Chronic Response to Treatment: Stable Problem Text: continue meds once her BUN/Creat have returned to baseline. (6) Hyperlipidemia Status: Chronic Response to Treatment: Stable (7) QING (obstructive sleep apnea) Status: Chronic Problem Text: non-compliant with CPAP at home, states intolerant in the past. (8) Infiltrate of lung present on imaging of chest Status: Acute Problem Text: 10/28 - see above - new infiltrate a (9) Diabetes type 2, uncontrolled Status: Chronic Problem Text: 10/26/18 Cont SSI - Lantus restarted - increase slightly (normally on 38 units daily) cont to hold Glimeperide (normally on 4 BID) Plan/VTE VTE Prophylaxis Ordered?: Yes (eliquis) Plan Therapy: PT Disposition change to acute today - Plan for subacute rehab once stable VS, I&O, 24H, Fishbone Vital Signs/I&O Vital Signs Date Time Temp Pulse Resp B/P (MAP) Pulse Ox O2 Delivery O2 Flow Rate FiO2 10/28/18 06:00 97.7 70 20 124/60 (81) 95 I&O- Last 24 Hours up to 6 AM 10/28/18 06:00 Intake Total 1000 ml Output Total 0 ml Balance 1000 ml Laboratory Data 24H LABS Laboratory Tests 2 10/27/18 11:44: Bedside Glucose (Misc Panel) 356H 10/27/18 17:05: Bedside Glucose (Misc Panel) 316H 10/27/18 20:44: Bedside Glucose (Misc Panel) 396H 10/28/18 05:55: Bedside Glucose (Misc Panel) 247H Microbiology Microbiology 10/18/18 Blood Culture - Final, Complete NO GROWTH AFTER 5 DAYS 10/18/18 Blood Culture - Final, Complete NO GROWTH AFTER 5 DAYS 10/27/18 Gram Stain, Received Pending 10/27/18 Sputum Culture, Received Pending 10/27/18 MRSA Screen, Received Pending 10/20/18 Respiratory Virus Panel (PCR) ([facility]) - Final, Complete Influenza A H1-200810/18/18 Urine Culture - Final, Complete ARSEN MEI PA-C Oct 28, 2018 08:26
[2018-10-28] MEDS: predniSONE 20 MG TAB PO SCH (08:27)
[2018-10-28] MEDS ORDERED: SODIUM CHLORIDE NASAL 0.65% SPRAY BTL (OCEAN) PRN (08:30)
[2018-10-28] MEDS: FLUTICASONE PROP 0.05% NASAL SPRAY 16 GM (FLONASE) SCH (08:31)
[2018-10-28] MEDS: LACTOBACILLUS ACIDOPHILUS CAP (BACID) PO SCH ×2 (08:31→20:53)
[2018-10-28] MEDS: guaiFENesin ER 600 MG TAB PO SCH ×2 (08:31→20:53)
--- NOTE | 2018-10-28 08:43 | PHACANCOPD ---
PHARMACY VANCOMYCIN DOSING Pt Demographics Demographics Patient Age:68 , Weight:96.100 , Gender: female Adjusted Body Weight Date: 10/28/18, Adjusted Body Weight: Kg Events Past 24 Hours Events Past 24 Hours: YES: Other Vancomycin Vancomycin indication: NOSOCOMIAL PNEUMONIA Vancomycin Target Ranges: 15-20 mcg/ml Vancomycin Load Y/N: Yes Load Dose Date Time Vancomycin Load Dose: 1750MG Date: 10/28/18 Time:1000 Vancomycin Dose Date: 10/28/18. Current Vancomycin Dose: [1G IV Q12H] Intermittent Dosing?: No Labs Labs Item Value Date Time White Blood Count 9.8 10^3/uL 10/27/18 0738 White Blood Count 7.0 10^3/uL 10/25/18 0638 White Blood Count 6.6 10^3/uL 10/24/18 0631 Blood Urea Nitrogen 40 MG/DL H 10/27/18 0740 Blood Urea Nitrogen 40 MG/DL H 10/26/18 0651 Blood Urea Nitrogen 42 MG/DL H 10/25/18 0638 Creatinine 1.24 MG/DL 10/27/18 0740 Creatinine 1.18 MG/DL 10/26/18 0651 Creatinine 1.13 MG/DL 10/25/18 0638 Micro Microbiology 10/18/18 Blood Culture - Final, Complete NO GROWTH AFTER 5 DAYS 10/18/18 Blood Culture - Final, Complete NO GROWTH AFTER 5 DAYS 10/27/18 Gram Stain, Received Pending 10/27/18 Sputum Culture, Received Pending 10/27/18 MRSA Screen, Received Pending 10/20/18 Respiratory Virus Panel (PCR) ([facility]) - Final, Complete Influenza A H1-200810/18/18 Urine Culture - Final, Complete Creatinine Clearance Date:10/28/18. EST Creatinine Clearance: [~45ML/MIN]. Assessment and Plan Maintaining Current Dose?: Yes Reason for dose change: No Dose Change Pharmacist Note Pharmacist Note Date: 10/28/18. Pharmacist note: Day #1 empiric vancomycin therapy initiated with a 1750mg loading dose, followed by a maintenance regimen of 1g IV Q12H for the treatment of nosocomial pneumonia - aiming for a goal trough of 15-20mcg/ml. The patient resulted positive for influenza A and chest xray yesterday showed "Increased markings right mid and lower lung zone today consistent with new infiltrate." WBC, RR, and pulse ox currently WNL on room air. No PMH of MRSA but does have a hx of vanco use here at [facility] in June 2012. Scr was 1.10 on admit and is now 1.24 today. BUN was 18 on admit now 40 today. It is noted pt is on daily lasix. We will continue to monitor the patient's renal function and schedule a trough level accordingly. DAVION GARCIA PHARMACY Oct 28, 2018 08:43
[2018-10-28 08:52] LABS: HEMATOCRIT 30.4 % (36.0-47.0); HEMOGLOBIN 10.3 g/dl (12.0-15.5); MEAN CORPUSCULAR HEMOGLOBIN 29.4 pg (27.0-33.0); MEAN CORPUSCULAR HGB CONC 33.9 g/dl (32.0-36.5); MEAN CORPUSCULAR VOLUME 86.9 fl (80.0-96.0); PLATELET COUNT, AUTOMATED 427 10^3/uL (150-450); WHITE BLOOD COUNT 10.1 10^3/uL (4.0-10.0)
[2018-10-28] MEDS: MEROPENEM INJ 1 GM in APPROPRIATE DILUENT 1 EA IV SCH ×2 (09:00→17:00)
[2018-10-28] MEDS: VANCOMYCIN HCL 1,000 MG, VIAL MATE ADAPTER 1 EACH in D5W 250 ML IV SCH ×2 (10:00→20:49)
[2018-10-28] MEDS ORDERED: VANCOMYCIN HCL 750 MG, VIAL MATE ADAPTER 1 EACH in D5W 250 ML IV ONE (11:00)
[2018-10-28 14:00] VITALS: BP 102/59
[2018-10-28] MEDS: LEVEMIR (INSULIN DETEMIR) 1 UNITS/0.01ML SC SCH (20:52)
[2018-10-28] MEDS: ROSUVASTATIN 10 MG TAB (CRESTOR) PO SCH (20:53)
[2018-10-28 22:00] VITALS: BP 130/66
[2018-10-29] MEDS: MEROPENEM INJ 1 GM in APPROPRIATE DILUENT 1 EA IV SCH ×3 (01:58→17:36)
[2018-10-29] MEDS: IPRATROPIUM 0.5MG/ALBUTEROL 2.5MG INH SOL UD 3ML (DUONEB)(J7620) NEB SCH ×4 (02:00→19:25)
[2018-10-29] MEDS: LEVOTHYROXINE 100MCG TABLET (0.1MG) PO SCH (04:44)
[2018-10-29 06:00] VITALS: BP 100/57
[2018-10-29 07:41] LABS: BLOOD UREA NITROGEN 28 MG/DL (7-18); CALCIUM LEVEL 7.9 MG/DL (8.8-10.2); CARBON DIOXIDE LEVEL 29 MEQ/L (21-32); CHLORIDE LEVEL 101 MEQ/L (98-107); CREATININE FOR GFR 0.96 MG/DL (0.55-1.30); GLOMERULAR FILTRATION RATE > 60.0 (>45); GLUCOSE, FASTING 214 MG/DL (70-100); POTASSIUM SERUM 3.5 MEQ/L (3.5-5.1); SODIUM LEVEL 138 MEQ/L (136-145)
[2018-10-29] MEDS: HumaLOG INSULIN (NovoLOG) PER UNIT SC SCH ×4 (08:08→20:11)
[2018-10-29] MEDS: guaiFENesin ER 600 MG TAB PO SCH ×2 (08:09→20:10)
[2018-10-29] MEDS: LACTOBACILLUS ACIDOPHILUS CAP (BACID) PO SCH ×2 (08:09→20:10)
[2018-10-29] MEDS: FUROSEMIDE 40 MG TAB PO SCH (08:09)
[2018-10-29] MEDS: FLUTICASONE PROP 0.05% NASAL SPRAY 16 GM (FLONASE) SCH (08:09)
[2018-10-29] MEDS: APIXABAN 5 MG TAB (ELIQUIS) PO SCH ×2 (08:09→20:10)
[2018-10-29] MEDS: ACETAMINOPHEN TAB 650MG DOSE (2X325MG) PO PRN ×3 (10:09→20:10)
--- NOTE | 2018-10-29 12:16 | IPNPDOC ---
Subjective Date Seen The patient was seen on 10/29/18. Subjective Chief Complaint/HPI Patient seen and examined at bedside this AM. She reports she is feeling fatigued, complaining of myalgias, states she is having difficulty coughing up sputum she feels is in her lungs. She is somewhat short of breath. She denies any fevers, chills, headache, chest pain, wheezing, abdominal pain, nausea, vomiting. Objective Physical Examination General Exam: Positive: Alert, Mild Distress (alert, breathing is mildly labored) Eye Exam: Positive: EOMI Neck Exam: Positive: Supple; Negative: JVD Chest Exam: Positive: Clear to auscultation, Diminished, Other (tender along lower ant/lateral rib edges BL. ); Negative: Rales, Rhonchi, Wheezing Heart Exam: Positive: Rate Normal, Regular Rhythm, Normal S1, Normal S2 Abdomen Exam: Positive: Normal bowel sounds, Soft; Negative: Tenderness Extremity Exam: Negative: Edema Skin Exam: Positive: Other skin issue (bruising on chest and left thigh. No rashes. ) Psych Exam: Positive: Mental status NL, Anxiety (anxious about her illness), Oriented x 3 Assessment /Plan Problems (1) Nosocomial pneumonia Status: Acute Problem Text: 10/29- MRSA screen is negative, discontinuing Vancomycin today. Gram stain positive for gram positive cocci in pairs, chains and clusters, few gram positive rods with sputum culture showing normal molly. Meropenem will provide good broad spectrum coverage regardless. Given the timeline of her symptoms, I suspect she has secondary bacterial pneumonia rather than community acquired or nosocomial pneumonia's. This is the beginning of day 2 of her Maame openem, we will see how she progresses tomorrow. I suspect her symptoms fatigue and aching are all symptomatic of her current infection. 10/28 - CXR: Increased markings right mid and lower lung zone today consistent with new infiltrate. Borderline heart size with pacemaker. Will treat for nosocomial pneumonia with Meropenem and Vanco until MRSA screen and sputum cultures return. Staph infection possible considering current flu. cont nebs Add Mucinex (2) Influenza Problem Text: 10/28 - flu screen positive 10/20 - likely present on admission. S/P Tamiflu x 5 days 10/27 - Influenza screen positive 10/20 - likely flu was present on admission. Now coughing up purulent sputum with increased cough. Tmax 99.4. May have supperimposed bacterial infection such as staph. Get CXR, CBCD, sputum C & S, and MRSA screen. Start Doxy empirically (Multiple drug allergies) 10/26 - Resp status stable. s/p Tamiflu x 5 days. Cont nebs & prednisone for bronchospasm. Repeat CXR was done 10/19 showing improved inftilrate on CXR. Still no white count or fever so no role for abx Noct Ox 10/22 - showed some desaturation - Has h/o known QING per study done by [facility] but refused CPAP Oxygen levels appear stable per vitals signs (3) Acute on chronic diastolic (congestive) heart failure Status: Resolved Response to Treatment: Stable Problem Text: 10/29- Compensated. No crackles or worsening edema on exam. 10/28 - compensated on po Lasix 10/27 - Cont po Lasix now. Appears euvolemic I & O inaccurate. Continue Fluid restriction of 1800 ml. Echo showed EF 45% (4) Paroxysmal atrial flutter Status: Chronic Problem Text: 10/26 - rate remains controlled with amiodarone on hold for side effects cont Eliquis (5) Hypertension Status: Chronic Response to Treatment: Stable Problem Text: continue meds once her BUN/Creat have returned to baseline. (6) Hyperlipidemia Status: Chronic Response to Treatment: Stable (7) QING (obstructive sleep apnea) Status: Chronic Problem Text: non-compliant with CPAP at home, states intolerant in the past. (8) Infiltrate of lung present on imaging of chest Status: Acute Problem Text: 10/29- See above under "nosocomial pneumonia", I suspect this is a secondary bacterial infection from her influenza. 10/28 - see above - new infiltrate (9) Diabetes type 2, uncontrolled Status: Chronic Problem Text: 10/26/18 Cont SSI - Lantus restarted - increase slightly (normally on 38 units daily) cont to hold Glimeperide (normally on 4 BID) Plan/VTE VTE Prophylaxis Ordered?: Yes (eliquis) Plan Therapy: PT VS, I&O, 24H, Fishbone Vital Signs/I&O Vital Signs Date Time Temp Pulse Resp B/P (MAP) Pulse Ox O2 Delivery O2 Flow Rate FiO2 10/29/18 06:00 98.5 70 16 100/57 (71) 94 I&O- Last 24 Hours up to 6 AM 10/29/18 06:00 Intake Total 2470 ml Balance 2470 ml Laboratory Data 24H LABS Laboratory Tests 2 10/28/18 12:10: Bedside Glucose (Misc Panel) 410H 10/28/18 16:57: Bedside Glucose (Misc Panel) 449H 10/28/18 20:31: Bedside Glucose (Misc Panel) 461H 10/29/18 06:58: Anion Gap 8, Glomerular Filtration Rate > 60.0, Blood Urea Nitrogen 28H, Creatinine 0.96, Sodium Level 138, Potassium Level 3.5, Chloride Level 101, Carbon Dioxide Level 29, Calcium Level 7.9L CBC/BMP Laboratory Tests 10/29/18 06:58 Calcium Level 7.9 L Microbiology Microbiology 10/27/18 Gram Stain - Final, Complete 10/27/18 Sputum Culture - Final, Complete 10/27/18 MRSA Screen - Final, Complete 10/20/18 Respiratory Virus Panel (PCR) ([facility]) - Final, Complete Influenza A H1-2008 GME ATTESTATION GME ATTESTATION My faculty preceptor for this patient encounter was physically present during the encounter and was fully available. All aspects of the patient interview, examination, medical decision making process, and medical care plan development were reviewed and approved by the faculty preceptor. The faculty preceptor is aware and concurs with the plan as stated in the body of this note and will attest to such by his/her cosignature. ATTENDING NOTE Patient was seen and examined by the attending physician. The case was reviewed with the PGY-1. LINETTE BARRIOS DO Oct 29, 2018 12:15 Brad Levine M.D. Oct 30, 2018 10:28
[2018-10-29 14:00] VITALS: BP 119/86
[2018-10-29 20:00] VITALS: BP 110/53
[2018-10-29] MEDS: LEVEMIR (INSULIN DETEMIR) 1 UNITS/0.01ML SC SCH (20:11)
[2018-10-30] MEDS: MEROPENEM INJ 1 GM in APPROPRIATE DILUENT 1 EA IV SCH ×3 (00:06→17:28)
[2018-10-30] MEDS: IPRATROPIUM 0.5MG/ALBUTEROL 2.5MG INH SOL UD 3ML (DUONEB)(J7620) NEB SCH ×4 (02:00→20:25)
[2018-10-30 05:00] VITALS: BP 120/60
[2018-10-30] MEDS: LEVOTHYROXINE 100MCG TABLET (0.1MG) PO SCH (05:13)
[2018-10-30 06:44] LABS: BASO % 0.5 % (0.0-1.0); EOS # 0.3 10^3/uL (0.0-0.50); EOS % 3.9 % (0.0-3.0); HEMATOCRIT 27.6 % (36.0-47.0); HEMOGLOBIN 9.2 g/dl (12.0-15.5); LYMPH # 1.7 10^3/uL (1.5-4.5); LYMPH % 19.2 % (24.0-44.0); MEAN CORPUSCULAR HEMOGLOBIN 28.9 pg (27.0-33.0); MEAN CORPUSCULAR HGB CONC 33.3 g/dl (32.0-36.5); MEAN CORPUSCULAR VOLUME 86.8 fl (80.0-96.0); MONO # 0.9 10^3/uL (0.0-0.8); MONO % 10.5 % (0.0-5.0); NEUTROPHILS # 5.4 10^3/uL (1.8-7.7); NEUTROPHILS % 61.5 % (36.0-66.0); PLATELET COUNT, AUTOMATED 377 10^3/uL (150-450); RED BLOOD COUNT 3.18 10^6/uL (4.00-5.40); WHITE BLOOD COUNT 8.7 10^3/uL (4.0-10.0)
[2018-10-30 07:12] LABS: CALCIUM LEVEL 7.9 MG/DL (8.8-10.2); CREATININE FOR GFR 1.09 MG/DL (0.55-1.30); GLOMERULAR FILTRATION RATE 53.5 (>45); POTASSIUM SERUM 3.6 MEQ/L (3.5-5.1)
[2018-10-30] MEDS: LACTOBACILLUS ACIDOPHILUS CAP (BACID) PO SCH ×2 (08:19→21:30)
[2018-10-30] MEDS: HumaLOG INSULIN (NovoLOG) PER UNIT SC SCH ×4 (08:19→21:31)
[2018-10-30] MEDS: FUROSEMIDE 40 MG TAB PO SCH (08:20)
[2018-10-30] MEDS: APIXABAN 5 MG TAB (ELIQUIS) PO SCH ×2 (08:20→21:31)
[2018-10-30] MEDS: FLUTICASONE PROP 0.05% NASAL SPRAY 16 GM (FLONASE) SCH (08:20)
[2018-10-30] MEDS: guaiFENesin ER 600 MG TAB PO SCH ×2 (08:20→21:31)
[2018-10-30 14:41] VITALS: BP 114/58
[2018-10-30] MEDS ORDERED: LEVEMIR (INSULIN DETEMIR) 1 UNITS/0.01ML SC SCH (21:00)
[2018-10-30] MEDS: ROSUVASTATIN 10 MG TAB (CRESTOR) PO SCH (21:31)
[2018-10-30 22:00] VITALS: BP 113/61
[2018-10-31] MEDS: MEROPENEM INJ 1 GM in APPROPRIATE DILUENT 1 EA IV SCH ×2 (00:26→08:43)
[2018-10-31] MEDS: IPRATROPIUM 0.5MG/ALBUTEROL 2.5MG INH SOL UD 3ML (DUONEB)(J7620) NEB SCH ×4 (01:04→19:43)
[2018-10-31] MEDS: ACETAMINOPHEN TAB 650MG DOSE (2X325MG) PO PRN ×2 (03:22→12:59)
[2018-10-31 04:00] VITALS: BP 101/58
[2018-10-31] MEDS: LEVOTHYROXINE 100MCG TABLET (0.1MG) PO SCH (06:04)
[2018-10-31 07:17] LABS: BASO # 0.1 10^3/uL (0.0-0.2); BASO % 0.6 % (0.0-1.0); EOS # 0.2 10^3/uL (0.0-0.50); EOS % 2.2 % (0.0-3.0); HEMATOCRIT 29.5 % (36.0-47.0); HEMOGLOBIN 9.9 g/dl (12.0-15.5); LYMPH # 1.7 10^3/uL (1.5-4.5); LYMPH % 19.8 % (24.0-44.0); MEAN CORPUSCULAR HEMOGLOBIN 29.6 pg (27.0-33.0); MEAN CORPUSCULAR HGB CONC 33.6 g/dl (32.0-36.5); MEAN CORPUSCULAR VOLUME 88.1 fl (80.0-96.0); MONO # 0.8 10^3/uL (0.0-0.8); MONO % 9.5 % (0.0-5.0); NEUTROPHILS # 5.4 10^3/uL (1.8-7.7); NEUTROPHILS % 64.1 % (36.0-66.0); PLATELET COUNT, AUTOMATED 368 10^3/uL (150-450); RED BLOOD COUNT 3.35 10^6/uL (4.00-5.40); WHITE BLOOD COUNT 8.4 10^3/uL (4.0-10.0)
[2018-10-31 07:45] LABS: CALCIUM LEVEL 8.5 MG/DL (8.8-10.2); CREATININE FOR GFR 1.01 MG/DL (0.55-1.30); GLOMERULAR FILTRATION RATE 58.4 (>45); POTASSIUM SERUM 3.6 MEQ/L (3.5-5.1)
[2018-10-31] MEDS: LACTOBACILLUS ACIDOPHILUS CAP (BACID) PO SCH ×2 (08:42→21:05)
[2018-10-31] MEDS: FUROSEMIDE 40 MG TAB PO SCH (08:43)
[2018-10-31] MEDS: APIXABAN 5 MG TAB (ELIQUIS) PO SCH ×2 (08:43→21:07)
[2018-10-31] MEDS: HumaLOG INSULIN (NovoLOG) PER UNIT SC SCH ×4 (08:43→20:18)
[2018-10-31] MEDS: guaiFENesin ER 600 MG TAB PO SCH ×2 (08:43→21:09)
[2018-10-31] MEDS: FLUTICASONE PROP 0.05% NASAL SPRAY 16 GM (FLONASE) SCH (08:44)
--- NOTE | 2018-10-31 12:18 | IPN ---
DATE OF VISIT: 10/30/2018 Patient is seen today on [address]. She has not been febrile. She is not coughing at this time but says she still feels short of breath at times. She has had some nausea today. Has some generalized aches and pains that seem to migrate. Her current medication regimen calls for her to receive Levemir, meropenem, Bacid, Mucinex, furosemide. She has got nebulizers scheduled and albuterol as needed. She is getting some Flonase nasal spray. Crestor every other day. Sliding-scale insulin. As-needed medications for pain, for dizziness, for chest pains, for hypoglycemia. She is on Eliquis and levothyroxine. On examination her temperature is 97.7, blood pressure 114/58, pulse is 70 and regular, respirations 20, O2 saturation on room air is 97%. She is laying on her in bed today complaining of some nausea and feeling unwell and some intermittent shortness of breath, although at this time does not appear short of breath. She really appears her usual self. Not doing any coughing, not sounding hoarse or raspy. Lungs sound perfectly clear today. Heart has regular rhythm without any murmur, click or gallop. Abdomen is soft, obese, mildly tender in the epigastrium. There is no pitting edema. Overall I think her physical findings are more benign than I usually see them in the office. Labs done today showed a hemoglobin of 9.2, WBCs 8700, BUN of 26, creatinine 1.09, glucose was 201, potassium 3.6. During the last 24 hours her blood sugars ranged from 256-361. ASSESSMENT: Nosocomial pneumonia. The patient's lungs seem clear today. She is not running a fever. Her white count is normal. Influenza A. She tested positive for this 10 days ago and has gotten treatment. Acute and chronic diastolic heart failure. I think that is controlled at this time. Paroxysmal atrial fibrillation. She is no longer getting amiodarone because of side effects. Hypertension, controlled. Hyperlipidemia. Obstructive sleep apnea. Diabetes type 2, not well-controlled. PLAN: The patient will continue on her current medication regimen but we will bump up her insulin given the fact that her sugars are not well controlled. Unfortunately the patient's clinical findings are quite good and her subjective complaints indicates she is still not feeling well. Her meropenem was started on 10/28 so we are probably looking at the another 3 days on that. She is no longer on the vancomycin. Continue on her other scheduled medications and as-needed medications. I am not seeing that she has a Zofran prescription, we will order that for her. AIMEE
[2018-10-31 14:00] VITALS: BP 126/65
--- NOTE | 2018-10-31 17:09 | IPNPDOC ---
Subjective Date Seen The patient was seen on 10/31/18. Subjective Chief Complaint/HPI Ms. Bethea is doing much better this morning and reports she is breathing a little easier and is having more success coughing up her sputum. She denies any fevers, chills, worsening dyspnea, or chest pain. Objective Physical Examination General Exam: Positive: Alert, Cooperative, No Acute Distress Eye Exam: Positive: EOMI Neck Exam: Positive: Supple; Negative: JVD Chest Exam: Positive: Clear to auscultation, Diminished, Other (tender along lower ant/lateral rib edges BL. ); Negative: Rales, Rhonchi, Wheezing Heart Exam: Positive: Rate Normal, Regular Rhythm, Normal S1, Normal S2 Abdomen Exam: Positive: Normal bowel sounds, Soft; Negative: Tenderness Extremity Exam: Negative: Edema Skin Exam: Positive: Other skin issue (bruising on chest and left thigh. No rashes. ) Psych Exam: Positive: Mental status NL, Mood NL, Oriented x 3 Assessment /Plan Problems (1) Secondary bacterial pneumonia Status: Acute Response to Treatment: Improving Problem Text: 10/31- Patient is feeling much better and is progressing along well. We are switching her to oral antibiotics with Doxycycline as she has many drug allergies and does not require further broad spectrum IV antibiotics. 10/29- MRSA screen is negative, discontinuing Vancomycin today. Gram stain positive for gram positive cocci in pairs, chains and clusters, few gram positive rods with sputum culture showing normal molly. Meropenem will provide good broad spectrum coverage regardless. Given the timeline of her symptoms, I suspect she has secondary bacterial pneumonia rather than community acquired or nosocomial pneumonia's. This is the beginning of day 2 of her Meropenem, we will see how she progresses tomorrow. I suspect her symptoms fatigue and aching are all symptomatic of her current infection. 10/28 - CXR: Increased markings right mid and lower lung zone today consistent with new infiltrate. Borderline heart size with pacemaker. Will treat for nosocomial pneumonia with Meropenem and Vanco until MRSA screen and sputum cultures return. Staph infection possible considering current flu. cont nebs Add Mucinex (2) Influenza Status: Acute Response to Treatment: Stable Problem Text: 10/28 - flu screen positive 10/20 - likely present on admission. S/P Tamiflu x 5 days 10/27 - Influenza screen positive 10/20 - likely flu was present on admission. Now coughing up purulent sputum with increased cough. Tmax 99.4. May have supperimposed bacterial infection such as staph. Get CXR, CBCD, sputum C & S, and MRSA screen. Start Doxy empirically (Multiple drug allergies) 10/26 - Resp status stable. s/p Tamiflu x 5 days. Cont nebs & prednisone for bronchospasm. Repeat CXR was done 10/19 showing improved inftilrate on CXR. Still no white count or fever so no role for abx Noct Ox 10/22 - showed some desaturation - Has h/o known QING per study done by Neurology but refused CPAP Oxygen levels appear stable per vitals signs (3) Acute on chronic diastolic (congestive) heart failure Status: Acute Response to Treatment: Stable Problem Text: 10/29- Compensated. No crackles or worsening edema on exam. 10/28 - compensated on po Lasix 10/27 - Cont po Lasix now. Appears euvolemic I & O inaccurate. Continue Fluid restriction of 1800 ml. Echo showed EF 45% (4) Diabetes type 2, uncontrolled Status: Chronic Problem Text: 10/31- Daily glucose levels have been elevated on 46 units of levemir, will switch this to 25 units twice daily for better glucose coverage to see if that brings them down. 10/26/18 Cont SSI - Lantus restarted - increase slightly (normally on 38 units daily) cont to hold Glimeperide (normally on 4 BID) (5) Paroxysmal atrial flutter Status: Chronic Problem Text: 10/26 - rate remains controlled with amiodarone on hold for side effects cont Eliquis (6) Hypertension Status: Chronic Response to Treatment: Stable Problem Text: continue meds once her BUN/Creat have returned to baseline. (7) Hyperlipidemia Status: Chronic Response to Treatment: Stable (8) QING (obstructive sleep apnea) Status: Chronic Problem Text: non-compliant with CPAP at home, states intolerant in the past. (9) Infiltrate of lung present on imaging of chest Status: Acute Problem Text: 10/29- See above under "nosocomial pneumonia", I suspect this is a secondary bacterial infection from her influenza. 10/28 - see above - new infiltrate Plan/VTE VTE Prophylaxis Ordered?: Yes (eliquis) Plan Therapy: PT VS, I&O, 24H, Fishbone Vital Signs/I&O Vital Signs Date Time Temp Pulse Resp B/P (MAP) Pulse Ox O2 Delivery O2 Flow Rate FiO2 10/31/18 14:00 97.6 76 16 126/65 (85) 100 I&O- Last 24 Hours up to 6 AM 10/31/18 06:00 Intake Total 1830 ml Output Total 0 ml Balance 1830 ml Laboratory Data 24H LABS Laboratory Tests 2 10/30/18 17:22: Bedside Glucose (Misc Panel) 207H 10/30/18 20:05: Bedside Glucose (Misc Panel) 330H 10/31/18 07:00: Immature Granulocyte % (Auto) 3.8H, White Blood Count 8.4, Red Blood Count 3.35L, Hemoglobin 9.9L, Hematocrit 29.5L, Mean Corpuscular Volume 88.1, Mean Corpuscular Hemoglobin 29.6, Mean Corpuscular Hemoglobin Concent 33.6, Red Cell Distribution Width 13.6, Platelet Count 368, Neutrophils (%) (Auto) 64.1, Lymphocytes (%) (Auto) 19.8L, Monocytes (%) (Auto) 9.5H, Eosinophils (%) (Auto) 2.2, Basophils (%) (Auto) 0.6, Neutrophils # (Auto) 5.4, Lymphocytes # (Auto) 1.7, Monocytes # (Auto) 0.8, Eosinophils # (Auto) 0.2, Basophils # (Auto) 0.1, Nucleated Red Blood Cells % (auto) 0.0, Anion Gap 9, Glomerular Filtration Rate 58.4, Blood Urea Nitrogen 28H, Creatinine 1.01, Sodium Level 136, Potassium Level 3.6, Chloride Level 97L, Carbon Dioxide Level 30, Calcium Level 8.5L 10/31/18 11:38: Bedside Glucose (Misc Panel) 263H 10/31/18 16:41: Bedside Glucose (Misc Panel) 309H CBC/BMP Laboratory Tests 10/31/18 07:00 Red Blood Count 3.35 L, Mean Corpuscular Volume 88.1, Mean Corpuscular Hemoglobin 29.6, Mean Corpuscular Hemoglobin Concent 33.6, Red Cell Distribution Width 13.6, Neutrophils (%) (Auto) 64.1, Lymphocytes (%) (Auto) 19.8 L, Monocytes (%) (Auto) 9.5 H, Eosinophils (%) (Auto) 2.2, Basophils (%) (Auto) 0.6, Neutrophils # (Auto) 5.4, Lymphocytes # (Auto) 1.7, Monocytes # (Auto) 0.8, Eosinophils # (Auto) 0.2, Basophils # (Auto) 0.1, Calcium Level 8.5 L Microbiology Microbiology 10/27/18 Gram Stain - Final, Complete 10/27/18 Sputum Culture - Final, Complete 10/27/18 MRSA Screen - Final, Complete GME ATTESTATION GME ATTESTATION My faculty preceptor for this patient encounter was physically present during the encounter and was fully available. All aspects of the patient interview, examination, medical decision making process, and medical care plan development were reviewed and approved by the faculty preceptor. The faculty preceptor is aware and concurs with the plan as stated in the body of this note and will attest to such by his/her cosignature. ATTENDING NOTE Patient seen, case discussed. Agree with the resident's note. Changed to PO antibiotics. LINETTE BARRIOS DO Oct 31, 2018 17:09 PARUL TRAVIS DO Nov 02, 2018 02:20
[2018-10-31 20:00] VITALS: BP 108/58
[2018-10-31] MEDS: DOXYCYCLINE HYCLATE 100 MG TAB PO SCH (21:08)
[2018-10-31] MEDS: LEVEMIR (INSULIN DETEMIR) 1 UNITS/0.01ML SC SCH (21:08)
[2018-11-01] MEDS: IPRATROPIUM 0.5MG/ALBUTEROL 2.5MG INH SOL UD 3ML (DUONEB)(J7620) NEB SCH ×4 (01:25→20:02)
[2018-11-01] MEDS: ALBUTEROL SULFATE 2.5 MG/0.5 ML INH NEB SOLN NEB PRN (04:16)
[2018-11-01] MEDS: LEVOTHYROXINE 100MCG TABLET (0.1MG) PO SCH (05:54)
[2018-11-01 06:00] VITALS: BP 97/52
[2018-11-01 07:02] LABS: BASO # 0.1 10^3/uL (0.0-0.2); BASO % 0.8 % (0.0-1.0); EOS # 0.2 10^3/uL (0.0-0.50); HEMATOCRIT 28.7 % (36.0-47.0); HEMOGLOBIN 9.6 g/dl (12.0-15.5); LYMPH # 1.6 10^3/uL (1.5-4.5); LYMPH % 18.8 % (24.0-44.0); MEAN CORPUSCULAR HEMOGLOBIN 29.5 pg (27.0-33.0); MEAN CORPUSCULAR HGB CONC 33.4 g/dl (32.0-36.5); MEAN CORPUSCULAR VOLUME 88.3 fl (80.0-96.0); MONO # 0.9 10^3/uL (0.0-0.8); MONO % 10.5 % (0.0-5.0); NEUTROPHILS # 5.6 10^3/uL (1.8-7.7); NEUTROPHILS % 65.9 % (36.0-66.0); PLATELET COUNT, AUTOMATED 320 10^3/uL (150-450); RED BLOOD COUNT 3.25 10^6/uL (4.00-5.40); WHITE BLOOD COUNT 8.5 10^3/uL (4.0-10.0)
[2018-11-01 07:24] LABS: BLOOD UREA NITROGEN 27 MG/DL (7-18); CALCIUM LEVEL 8.3 MG/DL (8.8-10.2); CARBON DIOXIDE LEVEL 31 MEQ/L (21-32); CHLORIDE LEVEL 98 MEQ/L (98-107); CREATININE FOR GFR 0.88 MG/DL (0.55-1.30); GLOMERULAR FILTRATION RATE > 60.0 (>45); GLUCOSE, FASTING 241 MG/DL (70-100); POTASSIUM SERUM 3.4 MEQ/L (3.5-5.1); SODIUM LEVEL 137 MEQ/L (136-145)
[2018-11-01] MEDS ORDERED: POTASSIUM CHLORIDE 10 MEQ SR TABLET PO ONE (07:45)
[2018-11-01] MEDS: APIXABAN 5 MG TAB (ELIQUIS) PO SCH ×2 (08:31→22:41)
[2018-11-01] MEDS: guaiFENesin ER 600 MG TAB PO SCH ×2 (08:32→22:41)
[2018-11-01] MEDS: FUROSEMIDE 40 MG TAB PO SCH (08:32)
[2018-11-01] MEDS: LACTOBACILLUS ACIDOPHILUS CAP (BACID) PO SCH ×2 (08:32→22:41)
[2018-11-01] MEDS: DOXYCYCLINE HYCLATE 100 MG TAB PO SCH ×2 (08:32→22:41)
[2018-11-01] MEDS: LEVEMIR (INSULIN DETEMIR) 1 UNITS/0.01ML SC SCH ×2 (08:33→22:42)
[2018-11-01] MEDS: HumaLOG INSULIN (NovoLOG) PER UNIT SC SCH ×4 (08:33→22:42)
--- NOTE | 2018-11-01 10:39 | REP ---
Chest one-view HISTORY: Dyspnea Comparison: 10/27/2018 Parenchymal densities are present in the right lower lobe consistent with an infiltrate that is increased compared to the previous study. The left lung is clear. The heart is upper limits of normal in size. The pulmonary vasculature is normal in appearance. A cardiac pacemaker is present. Impression: Right lower lobe infiltrate increased compared to the previous study. Electronically Signed by Ted Verde MD 11/01/2018 10:31 A
--- NOTE | 2018-11-01 11:35 | IPNPDOC ---
Subjective Date Seen The patient was seen on 11/01/18. Subjective Chief Complaint/HPI Patient is tearful on entering the room and feels like she is not getting better. She is complaining of generalized fatigue, weakness, and states her ankles are much more swollen than usual. Denies any worsening dyspnea, worsening cough, fevers, chills, or chest pain. Objective Physical Examination General Exam: Positive: Alert, Cooperative, No Acute Distress Eye Exam: Positive: EOMI Neck Exam: Positive: Supple; Negative: JVD Chest Exam: Positive: Clear to auscultation, Diminished, Other (tender along lower ant/lateral rib edges BL. ); Negative: Rales, Rhonchi, Wheezing Heart Exam: Positive: Rate Normal, Regular Rhythm, Normal S1, Normal S2 Abdomen Exam: Positive: Normal bowel sounds, Soft; Negative: Tenderness Extremity Exam: Positive: Edema (2+ pitting edema bilaterally. ); Negative: Cyanosis Skin Exam: Positive: Nl turgor and temperature, Other skin issue (bruising on chest and left thigh and along ankles. ) Neuro Exam: Positive: Normal Speech Psych Exam: Positive: Mental status NL, Anxiety (Anxiety and sadness about her illness, feels like she is not getting better. ), Oriented x 3; Negative: Mood NL Assessment /Plan Problems (1) Secondary bacterial pneumonia Status: Acute Response to Treatment: Improving Problem Text: 11/01- Patient was started on PO Doxycycline yesterday and depending on how she responds to the lasix, pharmacy is recommending a possible switch to cefdinir which should cover her for gram positive infections. A portable CXR does show worsening of her RLL infiltrate, however she has been afebrile, with no WBC count, and is complaining of generalized fatigue and weakness which could be from her fluid overloaded state. We will see how she responds to the lasix before we switch her antibiotics. 10/31- Patient is feeling much better and is progressing along well. We are switching her to oral antibiotics with Doxycycline as she has many drug allergies and does not require further broad spectrum IV antibiotics. 10/29- MRSA screen is negative, discontinuing Vancomycin today. Gram stain positive for gram positive cocci in pairs, chains and clusters, few gram positive rods with sputum culture showing normal molly. Meropenem will provide good broad spectrum coverage regardless. Given the timeline of her symptoms, I suspect she has secondary bacterial pneumonia rather than community acquired or nosocomial pneumonia's. This is the beginning of day 2 of her Meropenem, we will see how she progresses tomorrow. I suspect her symptoms fatigue and aching are all symptomatic of her current infection. 10/28 - CXR: Increased markings right mid and lower lung zone today consistent with new infiltrate. Borderline heart size with pacemaker. Will treat for nosocomial pneumonia with Meropenem and Vanco until MRSA screen and sputum cultures return. Staph infection possible considering current flu. cont nebs Add Mucinex (2) Acute on chronic diastolic (congestive) heart failure Status: Acute Response to Treatment: Worse Problem Text: 11/01- Patient has significantly worse edema this AM even compared to yesterday. Her records indicate she has not been getting more than 1800cc of fluid except a single time in the last 4-5 days. She has not had a daily weight since 10/24/18, we will put in nursing orders for more consistent I/Os and daily weights. Her current weight today is 101 kg, which is what it was on admission. I suspect her blood pressure is low as a result of her fluid overload from her diastolic CHF, we will diurese her more aggressively starting out with IV lasix to see if her symptoms improve as her CHF could be playing a role in how she feels. 10/29- Compensated. No crackles or worsening edema on exam. 10/28 - compensated on po Lasix 10/27 - Cont po Lasix now. Appears euvolemic I & O inaccurate. Continue Fluid restriction of 1800 ml. Echo showed EF 45% (3) Influenza Status: Acute Response to Treatment: Stable Problem Text: 10/28 - flu screen positive 10/20 - likely present on admission. S/P Tamiflu x 5 days 10/27 - Influenza screen positive 10/20 - likely flu was present on admission. Now coughing up purulent sputum with increased cough. Tmax 99.4. May have supperimposed bacterial infection such as staph. Get CXR, CBCD, sputum C & S, and MRSA screen. Start Doxy empirically (Multiple drug allergies) 10/26 - Resp status stable. s/p Tamiflu x 5 days. Cont nebs & prednisone for bronchospasm. Repeat CXR was done 10/19 showing improved inftilrate on CXR. Still no white count or fever so no role for abx Noct Ox 10/22 - showed some desaturation - Has h/o known QING per study done by Neurology but refused CPAP Oxygen levels appear stable per vitals signs (4) Diabetes type 2, uncontrolled Status: Chronic Problem Text: 10/31- Daily glucose levels have been elevated on 46 units of levemir, will switch this to 25 units twice daily for better glucose coverage to see if that brings them down. 10/26/18 Cont SSI - Lantus restarted - increase slightly (normally on 38 units daily) cont to hold Glimeperide (normally on 4 BID) (5) Paroxysmal atrial flutter Status: Chronic Problem Text: 10/26 - rate remains controlled with amiodarone on hold for side effects cont Eliquis (6) Hypertension Status: Chronic Response to Treatment: Stable Problem Text: continue meds once her BUN/Creat have returned to baseline. (7) Hyperlipidemia Status: Chronic Response to Treatment: Stable (8) QING (obstructive sleep apnea) Status: Chronic Problem Text: non-compliant with CPAP at home, states intolerant in the past. (9) Infiltrate of lung present on imaging of chest Status: Acute Problem Text: 10/29- See above under "nosocomial pneumonia", I suspect this is a secondary bacterial infection from her influenza. 10/28 - see above - new infiltrate Plan/VTE VTE Prophylaxis Ordered?: Yes (jeetis) Plan Therapy: PT VS, I&O, 24H, Fishbone Vital Signs/I&O Vital Signs Date Time Temp Pulse Resp B/P (MAP) Pulse Ox O2 Delivery O2 Flow Rate FiO2 11/01/18 06:00 98.0 71 17 97/52 (67) 100 I&O- Last 24 Hours up to 6 AM 11/01/18 06:00 Intake Total 1090 ml Balance 1090 ml Laboratory Data 24H LABS Laboratory Tests 2 10/31/18 11:38: Bedside Glucose (Misc Panel) 263H 10/31/18 16:41: Bedside Glucose (Misc Panel) 309H 10/31/18 19:51: Bedside Glucose (Misc Panel) 232H 11/01/18 06:39: Immature Granulocyte % (Auto) 2.0, White Blood Count 8.5, Red Blood Count 3.25L, Hemoglobin 9.6L, Hematocrit 28.7L, Mean Corpuscular Volume 88.3, Mean Corpuscular Hemoglobin 29.5, Mean Corpuscular Hemoglobin Concent 33.4, Red Cell Distribution Width 13.6, Platelet Count 320, Neutrophils (%) (Auto) 65.9, Lymphocytes (%) (Auto) 18.8L, Monocytes (%) (Auto) 10.5H, Eosinophils (%) (Auto) 2.0, Basophils (%) (Auto) 0.8, Neutrophils # (Auto) 5.6, Lymphocytes # (Auto) 1.6, Monocytes # (Auto) 0.9H, Eosinophils # (Auto) 0.2, Basophils # (Auto) 0.1, Nucleated Red Blood Cells % (auto) 0.0, Anion Gap 8, Glomerular Filtration Rate > 60.0, Blood Urea Nitrogen 27H, Creatinine 0.88, Sodium Level 137, Potassium Level 3.4L, Chloride Level 98, Carbon Dioxide Level 31, Calcium Level 8.3L CBC/BMP Laboratory Tests 11/01/18 06:39 Red Blood Count 3.25 L, Mean Corpuscular Volume 88.3, Mean Corpuscular Hemoglobin 29.5, Mean Corpuscular Hemoglobin Concent 33.4, Red Cell Distribution Width 13.6, Neutrophils (%) (Auto) 65.9, Lymphocytes (%) (Auto) 18.8 L, Monocytes (%) (Auto) 10.5 H, Eosinophils (%) (Auto) 2.0, Basophils (%) (Auto) 0.8, Neutrophils # (Auto) 5.6, Lymphocytes # (Auto) 1.6, Monocytes # (Auto) 0.9 H, Eosinophils # (Auto) 0.2, Basophils # (Auto) 0.1, Calcium Level 8.3 L Microbiology Microbiology 10/27/18 Gram Stain - Final, Complete 10/27/18 Sputum Culture - Final, Complete 10/27/18 MRSA Screen - Final, Complete GME ATTESTATION GME ATTESTATION My faculty preceptor for this patient encounter was physically present during encounter and was fully available. All aspects of the patient interview, examination, medical decision making process, and medical care plan development were reviewed and approved by the faculty preceptor. The faculty preceptor is aware and concurs with the plan as stated in the body of this note and will attest to such by his/her cosignature. ATTENDING NOTE Agree patient appeared somewhat volume overloaded, but clinically stable today. Moved to acute status while actively diuresing, anticipate return to [facility] status afterward. LINETTE BARRIOS DO Nov 01, 2018 11:35 PARUL TRAVIS DO Nov 02, 2018 02:24
[2018-11-01] MEDS: FLUTICASONE PROP 0.05% NASAL SPRAY 16 GM (FLONASE) SCH (11:58)
[2018-11-01] MEDS: BISACODYL 5 MG TAB PO SCH (11:59)
[2018-11-01] MEDS: FUROSEMIDE 40 MG/4 ML VIAL (J1940) IV SCH ×2 (12:01→17:29)
[2018-11-01] MEDS: POTASSIUM CHLORIDE 10 MEQ SR TABLET PO SCH ×2 (12:02→22:41)
[2018-11-01 14:00] VITALS: BP 129/75
[2018-11-01 20:00] VITALS: BP 144/77
[2018-11-01] MEDS: ROSUVASTATIN 10 MG TAB (CRESTOR) PO SCH (22:41)
[2018-11-02] MEDS: FUROSEMIDE 40 MG/4 ML VIAL (J1940) IV SCH ×5 (00:32→23:38)
[2018-11-02] MEDS: IPRATROPIUM 0.5MG/ALBUTEROL 2.5MG INH SOL UD 3ML (DUONEB)(J7620) NEB SCH ×4 (02:39→20:50)
[2018-11-02 04:00] VITALS: BP 147/67
[2018-11-02 06:15] VITALS: BP 120/58
[2018-11-02] MEDS: LEVOTHYROXINE 100MCG TABLET (0.1MG) PO SCH (06:53)
[2018-11-02 07:29] LABS: BASO # 0.1 10^3/uL (0.0-0.2); BASO % 0.9 % (0.0-1.0); EOS # 0.2 10^3/uL (0.0-0.50); EOS % 1.8 % (0.0-3.0); HEMATOCRIT 29.3 % (36.0-47.0); HEMOGLOBIN 9.8 g/dl (12.0-15.5); LYMPH # 1.5 10^3/uL (1.5-4.5); LYMPH % 18.7 % (24.0-44.0); MEAN CORPUSCULAR HEMOGLOBIN 29.3 pg (27.0-33.0); MEAN CORPUSCULAR HGB CONC 33.4 g/dl (32.0-36.5); MEAN CORPUSCULAR VOLUME 87.7 fl (80.0-96.0); MONO # 0.9 10^3/uL (0.0-0.8); MONO % 10.4 % (0.0-5.0); NEUTROPHILS # 5.5 10^3/uL (1.8-7.7); NEUTROPHILS % 66.4 % (36.0-66.0); PLATELET COUNT, AUTOMATED 304 10^3/uL (150-450); RED BLOOD COUNT 3.34 10^6/uL (4.00-5.40); WHITE BLOOD COUNT 8.2 10^3/uL (4.0-10.0)
[2018-11-02 07:43] LABS: CALCIUM LEVEL 8.5 MG/DL (8.8-10.2); CREATININE FOR GFR 1.02 MG/DL (0.55-1.30); GLOMERULAR FILTRATION RATE 57.7 (>45); POTASSIUM SERUM 3.8 MEQ/L (3.5-5.1)
[2018-11-02] MEDS: LEVEMIR (INSULIN DETEMIR) 1 UNITS/0.01ML SC SCH ×2 (08:10→21:18)
[2018-11-02] MEDS: guaiFENesin ER 600 MG TAB PO SCH ×2 (08:11→21:20)
[2018-11-02] MEDS: LACTOBACILLUS ACIDOPHILUS CAP (BACID) PO SCH ×2 (08:11→21:20)
[2018-11-02] MEDS: POTASSIUM CHLORIDE 10 MEQ SR TABLET PO SCH ×2 (08:11→21:20)
[2018-11-02] MEDS: BISACODYL 5 MG TAB PO SCH (08:11)
[2018-11-02] MEDS: HumaLOG INSULIN (NovoLOG) PER UNIT SC SCH ×4 (08:11→21:19)
[2018-11-02] MEDS: APIXABAN 5 MG TAB (ELIQUIS) PO SCH ×2 (08:11→21:19)
[2018-11-02] MEDS: DOXYCYCLINE HYCLATE 100 MG TAB PO SCH ×2 (08:11→21:19)
[2018-11-02] MEDS: FLUTICASONE PROP 0.05% NASAL SPRAY 16 GM (FLONASE) SCH (08:11)
[2018-11-02] MEDS: ONDANSETRON 4 MG TAB (S0181) PO PRN ×2 (09:45→17:09)
[2018-11-02 14:00] VITALS: BP 129/64
[2018-11-02 20:07] VITALS: BP 124/71
--- NOTE | 2018-11-02 23:36 | IPNPDOC ---
Subjective Date Seen The patient was seen on 11/02/18. Subjective Chief Complaint/HPI She notes that she had abdominal discomfort earlier today and then experienced emesis x 1; nursing estimates perhaps 300 ml. After antiemetic she was feeling less nauseous, but hadn't had much to eat or drink. General: Reports: Fatigue, Malaise; Denies: Normal Appetite Constitutional: Denies: Chills, Fever Pulmonary: Denies: Dyspnea Cardiovascular: Denies: Chest Pain Gastrointestinal: Reports: Nausea, Vomiting, Abdominal Pain; Denies: Diarrhea Hematologic: Reports: Bruising Objective Physical Examination General Exam: Positive: Alert, Cooperative, No Acute Distress Eye Exam: Positive: EOMI Neck Exam: Positive: Supple; Negative: JVD Chest Exam: Positive: Clear to auscultation, Diminished, Other (tender along lower ant/lateral rib edges BL. ); Negative: Rales, Rhonchi, Wheezing Heart Exam: Positive: Rate Normal, Regular Rhythm, Normal S1, Normal S2 Abdomen Exam: Positive: Normal bowel sounds, Soft; Negative: Tenderness Extremity Exam: Positive: Edema (2+ pitting edema bilaterally. ); Negative: Cyanosis Skin Exam: Positive: Nl turgor and temperature, Other skin issue (bruising on chest and left thigh and along ankles. ) Neuro Exam: Positive: Normal Speech Psych Exam: Positive: Mental status NL, Oriented x 3; Negative: Mood NL Assessment /Plan Problems (1) Secondary bacterial pneumonia Status: Acute Response to Treatment: Improving Problem Text: 11/02 -- respiratory status appears stable today 11/01- Patient was started on PO Doxycycline yesterday and depending on how she responds to the lasix, pharmacy is recommending a possible switch to cefdinir which should cover her for gram positive infections. A portable CXR does show worsening of her RLL infiltrate, however she has been afebrile, with no WBC count, and is complaining of generalized fatigue and weakness which could be from her fluid overloaded state. We will see how she responds to the lasix before we switch her antibiotics. 10/31- Patient is feeling much better and is progressing along well. We are switching her to oral antibiotics with Doxycycline as she has many drug allergies and does not require further broad spectrum IV antibiotics. 10/29- MRSA screen is negative, discontinuing Vancomycin today. Gram stain positive for gram positive cocci in pairs, chains and clusters, few gram positive rods with sputum culture showing normal molly. Meropenem will provide good broad spectrum coverage regardless. Given the timeline of her symptoms, I suspect she has secondary bacterial pneumonia rather than community acquired or nosocomial pneumonia's. This is the beginning of day 2 of her Meropenem, we will see how she progresses tomorrow. I suspect her symptoms fatigue and aching are all symptomatic of her current infection. 10/28 - CXR: Increased markings right mid and lower lung zone today consistent with new infiltrate. Borderline heart size with pacemaker. Will treat for nosocomial pneumonia with Meropenem and Vanco until MRSA screen and sputum cultures return. Staph infection possible considering current flu. cont nebs Add Mucinex (2) Acute on chronic diastolic (congestive) heart failure Status: Acute Response to Treatment: Worse Problem Text: 11/02 -- edema appears improved as compared to yesterday 11/01- Patient has significantly worse edema this AM even compared to yesterday. Her records indicate she has not been getting more than 1800cc of fluid except a single time in the last 4-5 days. She has not had a daily weight since 10/24/18, we will put in nursing orders for more consistent I/Os and daily weights. Her current weight today is 101 kg, which is what it was on admission. I suspect her blood pressure is low as a result of her fluid overload from her diastolic CHF, we will diurese her more aggressively starting out with IV lasix to see if her symptoms improve as her CHF could be playing a role in how she feels. 10/29- Compensated. No crackles or worsening edema on exam. 10/28 - compensated on po Lasix 10/27 - Cont po Lasix now. Appears euvolemic I & O inaccurate. Continue Fluid restriction of 1800 ml. Echo showed EF 45% (3) Influenza Status: Acute Response to Treatment: Stable Problem Text: 10/28 - flu screen positive 10/20 - likely present on admission. S/P Tamiflu x 5 days 10/27 - Influenza screen positive 10/20 - likely flu was present on admission. Now coughing up purulent sputum with increased cough. Tmax 99.4. May have bethea pperimposed bacterial infection such as staph. Get CXR, CBCD, sputum C & S, and MRSA screen. Start Doxy empirically (Multiple drug allergies) 10/26 - Resp status stable. s/p Tamiflu x 5 days. Cont nebs & prednisone for bronchospasm. Repeat CXR was done 10/19 showing improved inftilrate on CXR. Still no white count or fever so no role for abx Noct Ox 10/22 - showed some desaturation - Has h/o known QING per study done by Neurology but refused CPAP Oxygen levels appear stable per vitals signs (4) Diabetes type 2, uncontrolled Status: Chronic Problem Text: 10/31- Daily glucose levels have been elevated on 46 units of levemir, will switch this to 25 units twice daily for better glucose coverage to see if that brings them down. 10/26/18 Cont SSI - Lantus restarted - increase slightly (normally on 38 units daily) cont to hold Glimeperide (normally on 4 BID) (5) Paroxysmal atrial flutter Status: Chronic Problem Text: 10/26 - rate remains controlled with amiodarone on hold for side effects cont Eliquis (6) Hypertension Status: Chronic Response to Treatment: Stable Problem Text: continue meds once her BUN/Creat have returned to baseline. (7) Hyperlipidemia Status: Chronic Response to Treatment: Stable (8) QING (obstructive sleep apnea) Status: Chronic Problem Text: non-compliant with CPAP at home, states intolerant in the past. (9) Infiltrate of lung present on imaging of chest Status: Acute Problem Text: 10/29- See above under "nosocomial pneumonia", I suspect this is a secondary bacterial infection from her influenza. 10/28 - see above - new infiltrate Plan/VTE VTE Prophylaxis Ordered?: Yes (eliquis) Plan Therapy: PT VS, I&O, 24H, Fishbone Vital Signs/I&O Vital Signs Date Time Temp Pulse Resp B/P (MAP) Pulse Ox O2 Delivery O2 Flow Rate FiO2 11/02/18 20:07 98.1 70 124/71 (88) 97 11/02/18 14:00 18 l I&O- Last 24 Hours up to 6 AM 11/02/18 06:00 Intake Total 960 ml Output Total 1900 ml Balance -940 ml Laboratory Data 24H LABS Laboratory Tests 2 11/02/18 06:55: Immature Granulocyte % (Auto) 1.8, White Blood Count 8.2, Red Blood Count 3.34L, Hemoglobin 9.8L, Hematocrit 29.3L, Mean Corpuscular Volume 87.7, Mean Corpuscular Hemoglobin 29.3, Mean Corpuscular Hemoglobin Concent 33.4, Red Cell Distribution Width 13.7, Platelet Count 304, Neutrophils (%) (Auto) 66.4H, Lymphocytes (%) (Auto) 18.7L, Monocytes (%) (Auto) 10.4H, Eosinophils (%) (Auto) 1.8, Basophils (%) (Auto) 0.9, Neutrophils # (Auto) 5.5, Lymphocytes # (Auto) 1.5, Monocytes # (Auto) 0.9H, Eosinophils # (Auto) 0.2, Basophils # (Auto) 0.1, Nucleated Red Blood Cells % (auto) 0.0, Anion Gap 6L, Glomerular Filtration Rate 57.7, Blood Urea Nitrogen 28H, Creatinine 1.02, Sodium Level 137, Potassium Level 3.8, Chloride Level 99, Carbon Dioxide Level 32, Calcium Level 8.5L 11/02/18 11:29: Bedside Glucose (Misc Panel) 262H 11/02/18 16:40: Bedside Glucose (Misc Panel) 315H 11/02/18 21:07: Bedside Glucose (Misc Panel) 366H CBC/BMP Laboratory Tests 11/02/18 06:55 Red Blood Count 3.34 L, Mean Corpuscular Volume 87.7, Mean Corpuscular Hemoglobin 29.3, Mean Corpuscular Hemoglobin Concent 33.4, Red Cell Distribution Width 13.7, Neutrophils (%) (Auto) 66.4 H, Lymphocytes (%) (Auto) 18.7 L, Monocytes (%) (Auto) 10.4 H, Eosinophils (%) (Auto) 1.8, Basophils (%) (Auto) 0.9, Neutrophils # (Auto) 5.5, Lymphocytes # (Auto) 1.5, Monocytes # (Auto) 0.9 H, Eosinophils # (Auto) 0.2, Basophils # (Auto) 0.1, Calcium Level 8.5 L Microbiology Microbiology 10/27/18 Gram Stain - Final, Complete 10/27/18 Sputum Culture - Final, Complete 10/27/18 MRSA Screen - Final, Complete PARUL TRAVIS DO Nov 02, 2018 23:36
[2018-11-03] MEDS: IPRATROPIUM 0.5MG/ALBUTEROL 2.5MG INH SOL UD 3ML (DUONEB)(J7620) NEB SCH ×4 (02:00→19:25)
[2018-11-03] MEDS: FUROSEMIDE 40 MG/4 ML VIAL (J1940) IV SCH ×3 (05:23→17:49)
[2018-11-03] MEDS: LEVOTHYROXINE 100MCG TABLET (0.1MG) PO SCH (05:24)
[2018-11-03 06:22] VITALS: BP 129/66
[2018-11-03 07:10] LABS: BASO # 0.1 10^3/uL (0.0-0.2); BASO % 0.9 % (0.0-1.0); EOS # 0.2 10^3/uL (0.0-0.50); EOS % 2.4 % (0.0-3.0); HEMATOCRIT 29.8 % (36.0-47.0); HEMOGLOBIN 9.9 g/dl (12.0-15.5); LYMPH # 1.8 10^3/uL (1.5-4.5); LYMPH % 23.1 % (24.0-44.0); MEAN CORPUSCULAR HEMOGLOBIN 29.6 pg (27.0-33.0); MEAN CORPUSCULAR HGB CONC 33.2 g/dl (32.0-36.5); MONO # 0.9 10^3/uL (0.0-0.8); MONO % 11.4 % (0.0-5.0); NEUTROPHILS # 4.9 10^3/uL (1.8-7.7); NEUTROPHILS % 60.9 % (36.0-66.0); PLATELET COUNT, AUTOMATED 296 10^3/uL (150-450); RED BLOOD COUNT 3.35 10^6/uL (4.00-5.40)
[2018-11-03 07:31] LABS: CALCIUM LEVEL 8.7 MG/DL (8.8-10.2); CREATININE FOR GFR 1.14 MG/DL (0.55-1.30); GLOMERULAR FILTRATION RATE 50.8 (>45)
[2018-11-03 08:00] VITALS: BP 115/62
[2018-11-03] MEDS: FLUTICASONE PROP 0.05% NASAL SPRAY 16 GM (FLONASE) SCH (09:00)
[2018-11-03] MEDS: LACTOBACILLUS ACIDOPHILUS CAP (BACID) PO SCH ×2 (09:27→20:18)
[2018-11-03] MEDS: DOXYCYCLINE HYCLATE 100 MG TAB PO SCH ×2 (09:27→20:19)
[2018-11-03] MEDS: guaiFENesin ER 600 MG TAB PO SCH ×2 (09:27→20:19)
[2018-11-03] MEDS: POTASSIUM CHLORIDE 10 MEQ SR TABLET PO SCH ×2 (09:27→20:19)
[2018-11-03] MEDS: APIXABAN 5 MG TAB (ELIQUIS) PO SCH ×2 (09:27→20:19)
[2018-11-03] MEDS: BISACODYL 5 MG TAB PO SCH (09:27)
[2018-11-03] MEDS: HumaLOG INSULIN (NovoLOG) PER UNIT SC SCH ×4 (09:28→20:19)
[2018-11-03] MEDS: LEVEMIR (INSULIN DETEMIR) 1 UNITS/0.01ML SC SCH ×2 (09:28→20:19)
[2018-11-03] MEDS: ACETAMINOPHEN TAB 650MG DOSE (2X325MG) PO PRN ×2 (09:29→20:18)
[2018-11-03 16:30] VITALS: BP 154/72
--- NOTE | 2018-11-03 18:46 | IPNPDOC ---
Subjective Date Seen The patient was seen on 11/03/18. Subjective Chief Complaint/HPI Patient is doing well overnight, no acute events overnight. She reports she is feeling well this morning and enjoyed her work with OT. Overall, she feels much than yesterday and reports no nausea or vomiting. Objective Physical Examination General Exam: Positive: Alert, Cooperative, No Acute Distress Eye Exam: Positive: EOMI Neck Exam: Positive: Supple; Negative: JVD Chest Exam: Positive: Clear to auscultation, Diminished, Other (tender along lower ant/lateral rib edges BL. ); Negative: Rales, Rhonchi, Wheezing Heart Exam: Positive: Rate Normal, Regular Rhythm, Normal S1, Normal S2 Abdomen Exam: Positive: Normal bowel sounds, Soft; Negative: Tenderness Extremity Exam: Positive: Edema (2+ pitting edema bilaterally. ); Negative: Cyanosis Skin Exam: Positive: Nl turgor and temperature, Other skin issue (bruising on chest and left thigh and along ankles. ) Neuro Exam: Positive: Normal Speech Psych Exam: Positive: Mental status NL, Oriented x 3; Negative: Mood NL Assessment /Plan Problems (1) Secondary bacterial pneumonia Status: Acute Response to Treatment: Improving Problem Text: 11/03- Patient is doing well this AM and her lungs sounds the best they ever have since I have seen her. No signs of fluid overload or worsening pneumonia. 11/02 -- respiratory status appears stable today 11/01- Patient was started on PO Doxycycline yesterday and depending on how she responds to the lasix, pharmacy is recommending a possible switch to cefdinir which should cover her for gram positive infections. A portable CXR does show worsening of her RLL infiltrate, however she has been afebrile, with no WBC count, and is complaining of generalized fatigue and weakness which could be from her fluid overloaded state. We will see how she responds to the lasix before we switch her antibiotics. 10/31- Patient is feeling much better and is progressing along well. We are swi tching her to oral antibiotics with Doxycycline as she has many drug allergies and does not require further broad spectrum IV antibiotics. 10/29- MRSA screen is negative, discontinuing Vancomycin today. Gram stain positive for gram positive cocci in pairs, chains and clusters, few gram positive rods with sputum culture showing normal molly. Meropenem will provide good broad spectrum coverage regardless. Given the timeline of her symptoms, I suspect she has secondary bacterial pneumonia rather than community acquired or nosocomial pneumonia's. This is the beginning of day 2 of her Meropenem, we will see how she progresses tomorrow. I suspect her symptoms fatigue and aching are all symptomatic of her current infection. 10/28 - CXR: Increased markings right mid and lower lung zone today consistent with new infiltrate. Borderline heart size with pacemaker. Will treat for nosocomial pneumonia with Meropenem and Vanco until MRSA screen and sputum cultures return. Staph infection possible considering current flu. cont nebs Add Mucinex (2) Acute on chronic diastolic (congestive) heart failure Status: Acute Response to Treatment: Worse Problem Text: 11/03- Patient leg edema is improved from yesterday. Her weight is also down, will continue with IV diuresis for the time being as the patient still definitely has leg edema, chaning lasix 40mg from q6 to q8 hours. 11/02 -- edema appears improved as compared to yesterday 11/01- Patient has significantly worse edema this AM even compared to yesterday. Her records indicate she has not been getting more than 1800cc of fluid except a single time in the last 4-5 days. She has not had a daily weight since 10/24/18, we will put in nursing orders for more consistent I/Os and daily weights. Her current weight today is 101 kg, which is what it was on admission. I suspect her blood pressure is low as a result of her fluid overload from her diastolic CHF, we will diurese her more aggressively starting out with IV lasix to see if her symptoms improve as her CHF could be playing a role in how she feels. 10/29- Compensated. No crackles or worsening edema on exam. 10/28 - compensated on po Lasix 10/27 - Cont po Lasix now. Appears euvolemic I & O inaccurate. Continue Fluid restriction of 1800 ml. Echo showed EF 45% (3) Influenza Status: Acute Response to Treatment: Stable Problem Text: 10/28 - flu screen positive 10/20 - likely present on admission. S/P Tamiflu x 5 days 10/27 - Influenza screen positive 10/20 - likely flu was present on admission. Now coughing up purulent sputum with increased cough. Tmax 99.4. May have supperimposed bacterial infection such as staph. Get CXR, CBCD, sputum C & S, and MRSA screen. Start Doxy empirically (Multiple drug allergies) 10/26 - Resp status stable. s/p Tamiflu x 5 days. Cont nebs & prednisone for bronchospasm. Repeat CXR was done 10/19 showing improved inftilrate on CXR. Still no white count or fever so no role for abx Noct Ox 10/22 - showed some desaturation - Has h/o known QING per study done by Neurology but refused CPAP Oxygen levels appear stable per vitals signs (4) Diabetes type 2, uncontrolled Status: Chronic Problem Text: 10/31- Daily glucose levels have been elevated on 46 units of levemir, will switch this to 25 units twice daily for better glucose coverage to see if that brings them down. 10/26/18 Cont SSI - Lantus restarted - increase slightly (normally on 38 units daily) cont to hold Glimeperide (normally on 4 BID) (5) Paroxysmal atrial flutter Status: Chronic Problem Text: 10/26 - rate remains controlled with amiodarone on hold for side effects cont Eliquis (6) Hypertension Status: Chronic Response to Treatment: Stable Problem Text: continue meds once her BUN/Creat have returned to baseline. (7) Hyperlipidemia Status: Chronic Response to Treatment: Stable (8) QING (obstructive sleep apnea) Status: Chronic Problem Text: non-compliant with CPAP at home, states intolerant in the past. (9) Infiltrate of lung present on imaging of chest Status: Acute Problem Text: 10/29- See above under "nosocomial pneumonia", I suspect this is a secondary bacterial infection from her influenza. 10/28 - see above - new infiltrate Plan/VTE VTE Prophylaxis Ordered?: Yes (eliquis) Plan Therapy: PT VS, I&O, 24H, Fishbone Vital Signs/I&O Vital Signs Date Time Temp Pulse Resp B/P (MAP) Pulse Ox O2 Delivery O2 Flow Rate FiO2 11/03/18 16:30 97.7 69 20 154/72 (99) 100 I&O- Last 24 Hours up to 6 AM 11/03/18 06:00 Intake Total 1000 ml Output Total 1300 ml Balance -300 ml Laboratory Data 24H LABS Laboratory Tests 2 11/02/18 21:07: Bedside Glucose (Misc Panel) 366H 11/03/18 06:52: Immature Granulocyte % (Auto) 1.3, White Blood Count 8.0, Red Blood Count 3.35L, Hemoglobin 9.9L, Hematocrit 29.8L, Mean Corpuscular Volume 89.0, Mean Corpuscular Hemoglobin 29.6, Mean Corpuscular Hemoglobin Concent 33.2, Red Cell Distribution Width 13.6, Platelet Count 296, Neutrophils (%) (Auto) 60.9, Lymphocytes (%) (Auto) 23.1L, Monocytes (%) (Auto) 11.4H, Eosinophils (%) (Auto) 2.4, Basophils (%) (Auto) 0.9, Neutrophils # (Auto) 4.9, Lymphocytes # (Auto) 1.8, Monocytes # (Auto) 0.9H, Eosinophils # (Auto) 0.2, Basophils # (Auto) 0.1, Nucleated Red Blood Cells % (auto) 0.0, Anion Gap 8, Glomerular Filtration Rate 50.8, Blood Urea Nitrogen 33H, Creatinine 1.14, Sodium Level 136, Potassium Level 4.0, Chloride Level 96L, Carbon Dioxide Level 32, Calcium Level 8.7L 11/03/18 11:51: Bedside Glucose (Misc Panel) 273H 11/03/18 16:31: Bedside Glucose (Misc Panel) 251H CBC/BMP Laboratory Tests 11/03/18 06:52 Red Blood Count 3.35 L, Mean Corpuscular Volume 89.0, Mean Corpuscular Hemoglobin 29.6, Mean Corpuscular Hemoglobin Concent 33.2, Red Cell Distribution Width 13.6, Neutrophils (%) (Auto) 60.9, Lymphocytes (%) (Auto) 23.1 L, Monocytes (%) (Auto) 11.4 H, Eosinophils (%) (Auto) 2.4, Basophils (%) (Auto) 0.9, Neutrophils # (Auto) 4.9, Lymphocytes # (Auto) 1.8, Monocytes # (Auto) 0.9 H, Eosinophils # (Auto) 0.2, Basophils # (Auto) 0.1, Calcium Level 8.7 L Microbiology Microbiology 10/27/18 Gram Stain - Final, Complete 10/27/18 Sputum Culture - Final, Complete 10/27/18 MRSA Screen - Final, Complete GME ATTESTATION GME ATTESTATION My faculty preceptor for this patient encounter was physically present during the encounter and was fully available. All aspects of the patient interview, examination, medical decision making process, and medical care plan development were reviewed and approved by the faculty preceptor. The faculty preceptor is aware and concurs with the plan as stated in the body of this note and will attest to such by his/her cosignature. LINETTE BARRIOS DO Nov 03, 2018 18:46
[2018-11-03 20:00] VITALS: BP 116/64
[2018-11-03] MEDS: ROSUVASTATIN 10 MG TAB (CRESTOR) PO SCH (20:18)
[2018-11-04] MEDS: FUROSEMIDE 40 MG/4 ML VIAL (J1940) IV SCH ×3 (01:36→17:26)
[2018-11-04] MEDS: IPRATROPIUM 0.5MG/ALBUTEROL 2.5MG INH SOL UD 3ML (DUONEB)(J7620) NEB SCH ×4 (02:00→19:43)
[2018-11-04 04:00] VITALS: BP 114/57
[2018-11-04] MEDS: LEVOTHYROXINE 100MCG TABLET (0.1MG) PO SCH (05:51)
[2018-11-04 07:17] LABS: BASO # 0.1 10^3/uL (0.0-0.2); BASO % 1.3 % (0.0-1.0); EOS # 0.2 10^3/uL (0.0-0.50); EOS % 2.4 % (0.0-3.0); HEMATOCRIT 29.6 % (36.0-47.0); HEMOGLOBIN 9.7 g/dl (12.0-15.5); LYMPH # 1.6 10^3/uL (1.5-4.5); LYMPH % 23.3 % (24.0-44.0); MEAN CORPUSCULAR HEMOGLOBIN 28.9 pg (27.0-33.0); MEAN CORPUSCULAR HGB CONC 32.8 g/dl (32.0-36.5); MEAN CORPUSCULAR VOLUME 88.1 fl (80.0-96.0); MONO # 0.8 10^3/uL (0.0-0.8); MONO % 11.4 % (0.0-5.0); NEUTROPHILS # 4.3 10^3/uL (1.8-7.7); NEUTROPHILS % 60.6 % (36.0-66.0); PLATELET COUNT, AUTOMATED 284 10^3/uL (150-450); RED BLOOD COUNT 3.36 10^6/uL (4.00-5.40)
[2018-11-04 07:52] LABS: CALCIUM LEVEL 8.5 MG/DL (8.8-10.2); CREATININE FOR GFR 1.17 MG/DL (0.55-1.30); GLOMERULAR FILTRATION RATE 49.3 (>45)
[2018-11-04] MEDS: DOXYCYCLINE HYCLATE 100 MG TAB PO SCH ×2 (08:46→20:39)
[2018-11-04] MEDS: BISACODYL 5 MG TAB PO SCH (08:46)
[2018-11-04] MEDS: LACTOBACILLUS ACIDOPHILUS CAP (BACID) PO SCH ×2 (08:47→20:39)
[2018-11-04] MEDS: APIXABAN 5 MG TAB (ELIQUIS) PO SCH ×2 (08:47→20:39)
[2018-11-04] MEDS: ONDANSETRON 4 MG TAB (S0181) PO PRN (08:47)
[2018-11-04] MEDS: guaiFENesin ER 600 MG TAB PO SCH ×2 (08:47→20:39)
[2018-11-04] MEDS: POTASSIUM CHLORIDE 10 MEQ SR TABLET PO SCH ×2 (08:47→20:39)
[2018-11-04] MEDS: LEVEMIR (INSULIN DETEMIR) 1 UNITS/0.01ML SC SCH ×2 (08:48→20:41)
[2018-11-04] MEDS: HumaLOG INSULIN (NovoLOG) PER UNIT SC SCH ×4 (08:48→20:41)
[2018-11-04] MEDS: FLUTICASONE PROP 0.05% NASAL SPRAY 16 GM (FLONASE) SCH (08:49)
--- NOTE | 2018-11-04 09:48 | IPNPDOC ---
Subjective Date Seen The patient was seen on 11/04/18. Subjective Chief Complaint/HPI Pt reports she is feeling better, nausea this am, lack of appetite. Breathing pretty good. General: Denies: Fatigue Constitutional: Denies: Chills, Fever Pulmonary: Reports: Dyspnea; Denies: Cough Cardiovascular: Denies: Chest Pain, Palpitations Gastrointestinal: Reports: Nausea; Denies: Vomiting, Diarrhea Neurological: Reports: Weakness Psych: Reports: Mood Normal Objective Physical Examination General Exam: Positive: Alert, Cooperative, No Acute Distress Neck Exam: Positive: Supple; Negative: JVD Chest Exam: Positive: Diminished; Negative: Normal air movement, Rales, Rhonchi, Wheezing Heart Exam: Positive: Rate Normal, Regular Rhythm, Normal S1, Normal S2 Abdomen Exam: Positive: Normal bowel sounds, Soft; Negative: Tenderness Extremity Exam: Positive: Edema (2+ pitting edema bilaterally. ); Negative: Cyanosis Skin Exam: Positive: Nl turgor and temperature, Other skin issue (bruising on chest and left thigh and along ankles. ) Neuro Exam: Positive: Normal Speech Psych Exam: Positive: Mental status NL, Oriented x 3; Negative: Mood NL Assessment /Plan Problems (1) Secondary bacterial pneumonia Status: Acute Response to Treatment: Improving Problem Text: 11/04 Cont with PO doxy, anticipate D/C in AM. 11/03- Patient is doing well this AM and her lungs sounds the best they ever have since I have seen her. No signs of fluid overload or worsening pneumonia. 11/02 -- respiratory status appears stable today 11/01- Patient was started on PO Doxycycline yesterday and depending on how she responds to the lasix, pharmacy is recommending a possible switch to cefdinir which should cover her for gram positive infections. A portable CXR does show worsening of her RLL infiltrate, however she has been afebrile, with no WBC coun t, and is complaining of generalized fatigue and weakness which could be from her fluid overloaded state. We will see how she responds to the lasix before we switch her antibiotics. 10/31- Patient is feeling much better and is progressing along well. We are switching her to oral antibiotics with Doxycycline as she has many drug allergies and does not require further broad spectrum IV antibiotics. 10/29- MRSA screen is negative, discontinuing Vancomycin today. Gram stain positive for gram positive cocci in pairs, chains and clusters, few gram positive rods with sputum culture showing normal molly. Meropenem will provide good broad spectrum coverage regardless. Given the timeline of her symptoms, I suspect she has secondary bacterial pneumonia rather than community acquired or nosocomial pneumonia's. This is the beginning of day 2 of her Meropenem, we will see how she progresses tomorrow. I suspect her symptoms fatigue and aching are all symptomatic of her current infection. 10/28 - CXR: Increased markings right mid and lower lung zone today consistent with new infiltrate. Borderline heart size with pacemaker. Will treat for nosocomial pneumonia with Meropenem and Vanco until MRSA screen and sputum cultures return. Staph infection possible considering current flu. cont nebs Add Mucinex (2) Acute on chronic diastolic (congestive) heart failure Status: Acute Response to Treatment: Worse Problem Text: 11/04 Lassix 40 mg IV 18h, Net Neg -440 yesterday, anticipate d/c home on Lasix 40 mg po daily tomorrow. Safe per PT 11/03. 11/03- Patient leg edema is improved from yesterday. Her weight is also down, will continue with IV diuresis for the time being as the patient still definitely has leg edema, chaning lasix 40mg from q6 to q8 hours. 11/02 -- edema appears improved as compared to yesterday 11/01- Patient has significantly worse edema this AM even compared to yesterday. Her records indicate she has not been getting more than 1800cc of fluid except a single time in the last 4-5 days. She has not had a daily weight since 10/24/18, we will put in nursing orders for more consistent I/Os and daily weights. Her current weight today is 101 kg, which is what it was on admission. I suspect her blood pressure is low as a result of her fluid overload from her diastolic CHF, we will diurese her more aggressively starting out with IV lasix to see if her symptoms improve as her CHF could be playing a role in how she feels. 10/29- Compensated. No crackles or worsening edema on exam. 10/28 - compensated on po Lasix 10/27 - Cont po Lasix now. Appears euvolemic I & O inaccurate. Continue Fluid restriction of 1800 ml. Echo showed EF 45% (3) Influenza Status: Acute Response to Treatment: Stable Problem Text: 10/28 - flu screen positive 10/20 - likely present on admission. S/P Tamiflu x 5 days 10/27 - Influenza screen positive 10/20 - likely flu was present on admission. Now coughing up purulent sputum with increased cough. Tmax 99.4. May have supperimposed bacterial infection such as staph. Get CXR, CBCD, sputum C & S, and MRSA screen. Start Doxy empirically (Multiple drug allergies) 10/26 - Resp status stable. s/p Tamiflu x 5 days. Cont nebs & prednisone for bronchospasm. Repeat CXR was done 10/19 showing improved inftilrate on CXR. Still no white count or fever so no role for abx Noct Ox 10/22 - showed some desaturation - Has h/o known QING per study done by Neurology but refused CPAP Oxygen levels appear stable per vitals signs (4) Diabetes type 2, uncontrolled Status: Chronic Problem Text: 10/31- Daily glucose levels have been elevated on 46 units of levemir, will switch this to 25 units twice daily for better glucose coverage to see if that brings them down. 10/26/18 Cont SSI - Lantus restarted - increase slightly (normally on 38 units daily) cont to hold Glimeperide (normally on 4 BID) (5) Paroxysmal atrial flutter Status: Chronic Problem Text: 10/26 - rate remains controlled with amiodarone on hold for side effects cont Eliquis (6) Hypertension Status: Chronic Response to Treatment: Stable Problem Text: continue meds once her BUN/Creat have returned to baseline. (7) Hyperlipidemia Status: Chronic Response to Treatment: Stable (8) QING (obstructive sleep apnea) Status: Chronic Problem Text: non-compliant with CPAP at home, states intolerant in the past. (9) Infiltrate of lung present on imaging of chest Status: Acute Problem Text: 10/29- See above under "nosocomial pneumonia", I suspect this is a secondary bacterial infection from her influenza. 10/28 - see above - new infiltrate Plan/VTE VTE Prophylaxis Ordered?: Yes (eliquis) Plan Therapy: PT VS, I&O, 24H, Fishbone Vital Signs/I&O Vital Signs Date Time Temp Pulse Resp B/P (MAP) Pulse Ox O2 Delivery O2 Flow Rate FiO2 11/04/18 04:00 97.6 70 16 114/57 (76) 100 I&O- Last 24 Hours up to 6 AM 11/04/18 06:00 Intake Total 1320 ml Output Total 1350 ml Balance -30 ml Laboratory Data 24H LABS Laboratory Tests 2 11/03/18 11:51: Bedside Glucose (Misc Panel) 273H 11/03/18 16:31: Bedside Glucose (Misc Panel) 251H 11/03/18 20:12: Bedside Glucose (Misc Panel) 250H 11/04/18 06:53: Immature Granulocyte % (Auto) 1.0, White Blood Count 7.0, Red Blood Count 3.36L, Hemoglobin 9.7L, Hematocrit 29.6L, Mean Corpuscular Volume 88.1, Mean Corpuscular Hemoglobin 28.9, Mean Corpuscular Hemoglobin Concent 32.8, Red Cell Distribution Width 13.7, Platelet Count 284, Neutrophils (%) (Auto) 60.6, Lymphocytes (%) (Auto) 23.3L, Monocytes (%) (Auto) 11.4H, Eosinophils (%) (Auto) 2.4, Basophils (%) (Auto) 1.3H, Neutrophils # (Auto) 4.3, Lymphocytes # (Auto) 1.6, Monocytes # (Auto) 0.8, Eosinophils # (Auto) 0.2, Basophils # (Auto) 0.1, Nucleated Red Blood Cells % (auto) 0.0, Anion Gap 8, Glomerular Filtration Rate 49.3, Blood Urea Nitrogen 37H, Creatinine 1.17, Sodium Level 136, Potassium Lev el 4.0, Chloride Level 97L, Carbon Dioxide Level 31, Calcium Level 8.5L CBC/BMP Laboratory Tests 11/04/18 06:53 Red Blood Count 3.36 L, Mean Corpuscular Volume 88.1, Mean Corpuscular Hemoglobin 28.9, Mean Corpuscular Hemoglobin Concent 32.8, Red Cell Distribution Width 13.7, Neutrophils (%) (Auto) 60.6, Lymphocytes (%) (Auto) 23.3 L, Monocytes (%) (Auto) 11.4 H, Eosinophils (%) (Auto) 2.4, Basophils (%) (Auto) 1.3 H, Neutrophils # (Auto) 4.3, Lymphocytes # (Auto) 1.6, Monocytes # (Auto) 0.8, Eosinophils # (Auto) 0.2, Basophils # (Auto) 0.1, Calcium Level 8.5 L Microbiology Microbiology 10/27/18 Gram Stain - Final, Complete 10/27/18 Sputum Culture - Final, Complete 10/27/18 MRSA Screen - Final, Complete JENN MAC PA-C Nov 04, 2018 09:48
[2018-11-04 14:00] VITALS: BP 130/78
[2018-11-04 20:00] VITALS: BP 114/57
[2018-11-04] MEDS: ACETAMINOPHEN TAB 650MG DOSE (2X325MG) PO PRN (20:40)
[2018-11-05] MEDS: FUROSEMIDE 40 MG/4 ML VIAL (J1940) IV SCH ×3 (02:29→20:27)
[2018-11-05] MEDS: IPRATROPIUM 0.5MG/ALBUTEROL 2.5MG INH SOL UD 3ML (DUONEB)(J7620) NEB SCH ×4 (02:46→19:40)
[2018-11-05] MEDS: LEVOTHYROXINE 100MCG TABLET (0.1MG) PO SCH (05:53)
[2018-11-05 06:00] VITALS: BP 98/51
[2018-11-05 07:53] LABS: BASO # 0.1 10^3/uL (0.0-0.2); BASO % 1.5 % (0.0-1.0); EOS # 0.2 10^3/uL (0.0-0.50); EOS % 2.1 % (0.0-3.0); HEMATOCRIT 29.4 % (36.0-47.0); HEMOGLOBIN 9.8 g/dl (12.0-15.5); LYMPH # 1.9 10^3/uL (1.5-4.5); LYMPH % 25.9 % (24.0-44.0); MEAN CORPUSCULAR HEMOGLOBIN 29.3 pg (27.0-33.0); MEAN CORPUSCULAR HGB CONC 33.3 g/dl (32.0-36.5); MEAN CORPUSCULAR VOLUME 87.8 fl (80.0-96.0); MONO # 0.7 10^3/uL (0.0-0.8); MONO % 10.3 % (0.0-5.0); NEUTROPHILS # 4.3 10^3/uL (1.8-7.7); NEUTROPHILS % 59.5 % (36.0-66.0); PLATELET COUNT, AUTOMATED 273 10^3/uL (150-450); RED BLOOD COUNT 3.35 10^6/uL (4.00-5.40); WHITE BLOOD COUNT 7.2 10^3/uL (4.0-10.0)
[2018-11-05 08:18] LABS: CALCIUM LEVEL 9.1 MG/DL (8.8-10.2); CREATININE FOR GFR 1.07 MG/DL (0.55-1.30); GLOMERULAR FILTRATION RATE 54.6 (>45); POTASSIUM SERUM 3.9 MEQ/L (3.5-5.1)
[2018-11-05] MEDS: LEVEMIR (INSULIN DETEMIR) 1 UNITS/0.01ML SC SCH ×2 (09:43→20:26)
[2018-11-05] MEDS: guaiFENesin ER 600 MG TAB PO SCH ×2 (09:44→20:25)
[2018-11-05] MEDS: APIXABAN 5 MG TAB (ELIQUIS) PO SCH ×2 (09:44→20:25)
[2018-11-05] MEDS: BISACODYL 5 MG TAB PO SCH (09:44)
[2018-11-05] MEDS: HumaLOG INSULIN (NovoLOG) PER UNIT SC SCH ×4 (09:44→20:26)
[2018-11-05] MEDS: DOXYCYCLINE HYCLATE 100 MG TAB PO SCH ×2 (09:45→20:25)
[2018-11-05] MEDS: LACTOBACILLUS ACIDOPHILUS CAP (BACID) PO SCH ×2 (09:45→20:25)
[2018-11-05] MEDS: FLUTICASONE PROP 0.05% NASAL SPRAY 16 GM (FLONASE) SCH (09:45)
[2018-11-05] MEDS: POTASSIUM CHLORIDE 10 MEQ SR TABLET PO SCH ×2 (09:45→20:26)
--- NOTE | 2018-11-05 11:17 | IPNPDOC ---
Subjective Date Seen The patient was seen on 11/05/18. Subjective Chief Complaint/HPI Patient doing well this morning. No acute events overnight. Not feeling nauseous, continues to complain of generalized weakness. Cleared PT yesterday. Objective Physical Examination General Exam: Positive: Alert, Cooperative, No Acute Distress Neck Exam: Positive: Supple; Negative: JVD Chest Exam: Positive: Diminished; Negative: Normal air movement, Rales, Rhonchi, Wheezing Heart Exam: Positive: Rate Normal, Regular Rhythm, Normal S1, Normal S2 Abdomen Exam: Positive: Normal bowel sounds, Soft; Negative: Tenderness Extremity Exam: Positive: Edema (2+ pitting edema bilaterally. ); Negative: Cyanosis Skin Exam: Positive: Nl turgor and temperature, Other skin issue (bruising on chest and left thigh and along ankles. ) Neuro Exam: Positive: Normal Speech Psych Exam: Positive: Mental status NL, Oriented x 3; Negative: Mood NL Assessment /Plan Problems (1) Secondary bacterial pneumonia Status: Acute Response to Treatment: Improving Problem Text: 11/05 Pneumonia is likely mostly resolved, this is PO Doxy day 5 will have her complete 10 day course total. 11/04 Cont with PO doxy, anticipate D/C in AM. 11/03- Patient is doing well this AM and her lungs sounds the best they ever have since I have seen her. No signs of fluid overload or worsening pneumonia. 11/02 -- respiratory status appears stable today 11/01- Patient was started on PO Doxycycline yesterday and depending on how she responds to the lasix, pharmacy is recommending a possible switch to cefdinir which should cover her for gram positive infections. A portable CXR does show worsening of her RLL infiltrate, however she has been afebrile, with no WBC count, and is complaining of generalized fatigue and weakness which could be from her fluid overloaded state. We will see how she responds to the lasix before we switch her antibiotics. 10/31- Patient is feeling much better and is progressing along well. We are switching her to oral antibiotics with Doxycycline as she has many drug allergies and does not require further broad spectrum IV antibiotics. 10/29- MRSA screen is negative, discontinuing Vancomycin today. Gram stain positive for gram positive cocci in pairs, chains and clusters, few gram positive rods with sputum culture showing normal molly. Meropenem will provide good broad spectrum coverage regardless. Given the timeline of her symptoms, I suspect she has secondary bacterial pneumonia rather than community acquired or nosocomial pneumonia's. This is the beginning of day 2 of her Meropenem, we will see how she progresses tomorrow. I suspect her symptoms fatigue and aching are all symptomatic of her current infection. 10/28 - CXR: Increased markings right mid and lower lung zone today consistent with new infiltrate. Borderline heart size with pacemaker. Will treat for nosocomial pneumonia with Meropenem and Vanco until MRSA screen and sputum cultures return. Staph infection possible considering current flu. cont nebs Add Mucinex (2) Acute on chronic diastolic (congestive) heart failure Status: Acute Response to Treatment: Improving, Worse Problem Text: 11/05 Lasix weaned down to 40 mg IV BID as patient still has pitting edema but I think it is improved, will order BNP to see if she is fully compensated as her net weights seem to vary daily despite adequate diuresis. At this point I don't feel she is fully ready for discharge home, but I think we are close. 11/04 Lassix 40 mg IV 18h, Net Neg -440 yesterday, anticipate d/c home on Lasix 40 mg po daily tomorrow. Safe per PT 11/03. 11/03- Patient leg edema is improved from yesterday. Her weight is also down, will continue with IV diuresis for the time being as the patient still definitely has leg edema, chaning lasix 40mg from q6 to q8 hours. 11/02 -- edema appears improved as compared to yesterday 11/01- Patient has significantly worse edema this AM even compared to yesterday. Her records indicate she has not been getting more than 1800cc of fluid except a single time in the last 4-5 days. She has not had a daily weight since 10/24/18, we will put in nursing orders for more consistent I/Os and daily weights. Her current weight today is 101 kg, which is what it was on admission. I suspect her blood pressure is low as a result of her fluid overload from her diastolic CHF, we will diurese her more aggressively starting out with IV lasix to see if her symptoms improve as her CHF could be playing a role in how she feels. 10/29- Compensated. No crackles or worsening edema on exam. 10/28 - compensated on po Lasix 10/27 - Cont po Lasix now. Appears euvolemic I & O inaccurate. Continue Fluid restriction of 1800 ml. Echo showed EF 45% (3) Influenza Status: Acute Response to Treatment: Stable Problem Text: 10/28 - flu screen positive 10/20 - likely present on admission. S/P Tamiflu x 5 days 10/27 - Influenza screen positive 10/20 - likely flu was present on admission. Now coughing up purulent sputum with increased cough. Tmax 99.4. May have supperimposed bacterial infection such as staph. Get CXR, CBCD, sputum C & S, and MRSA screen. Start Doxy empirically (Multiple drug allergies) 10/26 - Resp status stable. s/p Tamiflu x 5 days. Cont nebs & prednisone for bronchospasm. Repeat CXR was done 10/19 showing improved inftilrate on CXR. Still no white count or fever so no role for abx Noct Ox 10/22 - showed some desaturation - Has h/o known QING per study done by Neurology but refused CPAP Oxygen levels appear stable per vitals signs (4) Diabetes type 2, uncontrolled Status: Chronic Problem Text: 10/31- Daily glucose levels have been elevated on 46 units of levemir, will switch this to 25 units twice daily for better glucose coverage to see if that brings them down. 10/26/18 Cont SSI - Lantus restarted - increase slightly (normally on 38 units daily) cont to hold Glimeperide (normally on 4 BID) (5) Paroxysmal atrial flutter Status: Chronic Problem Text: 10/26 - rate remains controlled with amiodarone on hold for side effects cont Eliquis (6) Hypertension Status: Chronic Response to Treatment: Stable Problem Text: continue meds once her BUN/Creat have returned to baseline. (7) Hyperlipidemia Status: Chronic Response to Treatment: Stable (8) QING (obstructive sleep apnea) Status: Chronic Problem Text: non-compliant with CPAP at home, states intolerant in the past. (9) Infiltrate of lung present on imaging of chest Status: Acute Problem Text: 10/29- See above under "nosocomial pneumonia", I suspect this is a secondary bacterial infection from her influenza. 10/28 - see above - new infiltrate Plan/VTE VTE Prophylaxis Ordered?: Yes (eliquis) Plan Therapy: PT VS, I&O, 24H, Fishbone Vital Signs/I&O Vital Signs Date Time Temp Pulse Resp B/P (MAP) Pulse Ox O2 Delivery O2 Flow Rate FiO2 11/05/18 06:00 98.6 71 16 98/51 (67) 100 I&O- Last 24 Hours up to 6 AM 11/05/18 06:00 Intake Total 900 ml Output Total 1950 ml Balance -1050 ml Laboratory Data 24H LABS Laboratory Tests 2 11/04/18 12:13: Bedside Glucose (Misc Panel) 257H 11/04/18 16:47: Bedside Glucose (Misc Panel) 251H 11/04/18 20:22: Bedside Glucose (Misc Panel) 190H 11/05/18 07:41: Immature Granulocyte % (Auto) 0.7, White Blood Count 7.2, Red Blood Count 3.35L, Hemoglobin 9.8L, Hematocrit 29.4L, Mean Corpuscular Volume 87.8, Mean Corpuscular Hemoglobin 29.3, Mean Corpuscular Hemoglobin Concent 33.3, Red Cell Distribution Width 13.6, Platelet Count 273, Neutrophils (%) (Auto) 59.5, Lymphocytes (%) (Auto) 25.9, Monocytes (%) (Auto) 10.3H, Eosinophils (%) (Auto) 2.1, Basophils (%) (Auto) 1.5H, Neutrophils # (Auto) 4.3, Lymphocytes # (Auto) 1.9, Monocytes # (Auto) 0.7, Eosinophils # (Auto) 0.2, Basophils # (Auto) 0.1, Nucleated Red Blood Cells % (auto) 0.0, Anion Gap 6L, Glomerular Filtration Rate 54.6, Blood Urea Nitrogen 38H, Creatinine 1.07, Sodium Level 136, Potassium Level 3.9, Chloride Level 99, Carbon Dioxide Level 31, Calcium Level 9.1 CBC/BMP Laboratory Tests 11/05/18 07:41 Red Blood Count 3.35 L, Mean Corpuscular Volume 87.8, Mean Corpuscular Hemoglobin 29.3, Mean Corpuscular Hemoglobin Concent 33.3, Red Cell Distribution Width 13.6, Neutrophils (%) (Auto) 59.5, Lymphocytes (%) (Auto) 25.9, Monocytes (%) (Auto) 10.3 H, Eosinophils (%) (Auto) 2.1, Basophils (%) (Auto) 1.5 H, Neutr ophils # (Auto) 4.3, Lymphocytes # (Auto) 1.9, Monocytes # (Auto) 0.7, Eosinophils # (Auto) 0.2, Basophils # (Auto) 0.1, Calcium Level 9.1 Microbiology Microbiology 10/27/18 Gram Stain - Final, Complete 10/27/18 Sputum Culture - Final, Complete 10/27/18 MRSA Screen - Final, Complete GME ATTESTATION GME ATTESTATION My faculty preceptor for this patient encounter was physically present during the encounter and was fully available. All aspects of the patient interview, examination, medical decision making process, and medical care plan development were reviewed and approved by the faculty preceptor. The faculty preceptor is aware and concurs with the plan as stated in the body of this note and will at test to such by his/her cosignature. LINETTE BARRIOS DO Nov 05, 2018 11:17
[2018-11-05 14:00] VITALS: BP 111/56
[2018-11-05] MEDS: ALBUTEROL SULFATE 2.5 MG/0.5 ML INH NEB SOLN NEB PRN (16:54)
[2018-11-05] MEDS: ACETAMINOPHEN TAB 650MG DOSE (2X325MG) PO PRN (20:25)
[2018-11-05] MEDS: ROSUVASTATIN 10 MG TAB (CRESTOR) PO SCH (20:25)
[2018-11-05 21:00] VITALS: BP 119/68
[2018-11-06] MEDS: IPRATROPIUM 0.5MG/ALBUTEROL 2.5MG INH SOL UD 3ML (DUONEB)(J7620) NEB SCH ×4 (01:41→19:20)
[2018-11-06] MEDS: LEVOTHYROXINE 100MCG TABLET (0.1MG) PO SCH (05:33)
[2018-11-06 06:00] VITALS: BP 112/54
[2018-11-06 07:04] LABS: HEMATOCRIT 29.3 % (36.0-47.0); HEMOGLOBIN 9.7 g/dl (12.0-15.5); MEAN CORPUSCULAR HGB CONC 33.1 g/dl (32.0-36.5); MEAN CORPUSCULAR VOLUME 87.7 fl (80.0-96.0); PLATELET COUNT, AUTOMATED 294 10^3/uL (150-450); RED BLOOD COUNT 3.34 10^6/uL (4.00-5.40); WHITE BLOOD COUNT 6.8 10^3/uL (4.0-10.0)
[2018-11-06 07:37] LABS: CALCIUM LEVEL 8.7 MG/DL (8.8-10.2); CREATININE FOR GFR 1.28 MG/DL (0.55-1.30); GLOMERULAR FILTRATION RATE 44.4 (>45); POTASSIUM SERUM 4.3 MEQ/L (3.5-5.1)
[2018-11-06] MEDS: FUROSEMIDE 40 MG/4 ML VIAL (J1940) IV SCH ×2 (09:07→20:44)
[2018-11-06] MEDS: LACTOBACILLUS ACIDOPHILUS CAP (BACID) PO SCH ×2 (09:07→20:43)
[2018-11-06] MEDS: BISACODYL 5 MG TAB PO SCH (09:08)
[2018-11-06] MEDS: HumaLOG INSULIN (NovoLOG) PER UNIT SC SCH ×4 (09:08→20:45)
[2018-11-06] MEDS: guaiFENesin ER 600 MG TAB PO SCH ×2 (09:08→20:44)
[2018-11-06] MEDS: APIXABAN 5 MG TAB (ELIQUIS) PO SCH ×2 (09:08→20:44)
[2018-11-06] MEDS: DOXYCYCLINE HYCLATE 100 MG TAB PO SCH ×2 (09:08→20:44)
[2018-11-06] MEDS: POTASSIUM CHLORIDE 10 MEQ SR TABLET PO SCH ×2 (09:08→20:44)
[2018-11-06] MEDS: LEVEMIR (INSULIN DETEMIR) 1 UNITS/0.01ML SC SCH ×2 (09:09→20:45)
[2018-11-06] MEDS: FLUTICASONE PROP 0.05% NASAL SPRAY 16 GM (FLONASE) SCH (09:09)
--- NOTE | 2018-11-06 11:43 | IPN ---
DATE: 11/06/2018 Barbara is seen on [address] [facility]. She still has dyspnea on exertion but she had a good diuresis yesterday. She put out the most she has over the last several days. She has decreasing lower extremity edema and her exercise tolerance is (minimally) better than yesterday. PHYSICAL EXAMINATION: Blood pressure 112/54, afebrile, 100% oxygen saturation on room air. General Appearance: Walking with a walker in the room. No jugular venous distention (JVD) Lungs were quite clear. Heart regular rate and rhythm. Abdomen soft, nontender. She has 1+ peripheral edema. Marginally better than yesterday. LABS: CBC unchanged. BUN/creatinine 37/1.28, BNP is 410, significantly better than 40,482 when she was admitted. IMPRESSION: Congestive heart failure. PLAN: 1. She had a good diuresis yesterday. I think we need to continue this. Her BNP looks like it has reached a saleem so she is probably pretty close to being discharged. She will get a home safety evaluation tomorrow. She will probably be able to go home. 2. Pneumonia: Day 6 of doxycycline on a 10-day course. The rest of her medical problems are stable. Plan to discharge tomorrow.
[2018-11-06 14:00] VITALS: BP 139/65
[2018-11-06] MEDS: ACETAMINOPHEN TAB 650MG DOSE (2X325MG) PO PRN (21:50)
[2018-11-06 22:00] VITALS: BP 114/60
[2018-11-07] MEDS: IPRATROPIUM 0.5MG/ALBUTEROL 2.5MG INH SOL UD 3ML (DUONEB)(J7620) NEB SCH ×4 (02:00→19:30)
[2018-11-07] MEDS: LEVOTHYROXINE 100MCG TABLET (0.1MG) PO SCH (05:28)
[2018-11-07 06:00] VITALS: BP 135/66
[2018-11-07 06:50] LABS: HEMATOCRIT 28.2 % (36.0-47.0); HEMOGLOBIN 9.1 g/dl (12.0-15.5); MEAN CORPUSCULAR HEMOGLOBIN 28.5 pg (27.0-33.0); MEAN CORPUSCULAR HGB CONC 32.3 g/dl (32.0-36.5); MEAN CORPUSCULAR VOLUME 88.4 fl (80.0-96.0); PLATELET COUNT, AUTOMATED 265 10^3/uL (150-450); RED BLOOD COUNT 3.19 10^6/uL (4.00-5.40); WHITE BLOOD COUNT 5.9 10^3/uL (4.0-10.0)
[2018-11-07 07:10] LABS: CALCIUM LEVEL 8.5 MG/DL (8.8-10.2); CREATININE FOR GFR 1.29 MG/DL (0.55-1.30); POTASSIUM SERUM 4.1 MEQ/L (3.5-5.1)
[2018-11-07] MEDS: FUROSEMIDE 40 MG/4 ML VIAL (J1940) IV SCH (08:56)
[2018-11-07] MEDS: APIXABAN 5 MG TAB (ELIQUIS) PO SCH ×2 (08:57→20:37)
[2018-11-07] MEDS: LACTOBACILLUS ACIDOPHILUS CAP (BACID) PO SCH ×2 (08:57→20:37)
[2018-11-07] MEDS: BISACODYL 5 MG TAB PO SCH (08:57)
[2018-11-07] MEDS: guaiFENesin ER 600 MG TAB PO SCH ×2 (08:57→20:37)
[2018-11-07] MEDS: DOXYCYCLINE HYCLATE 100 MG TAB PO SCH (08:57)
[2018-11-07] MEDS: POTASSIUM CHLORIDE 10 MEQ SR TABLET PO SCH ×2 (08:57→20:36)
[2018-11-07] MEDS: HumaLOG INSULIN (NovoLOG) PER UNIT SC SCH ×4 (08:58→20:36)
[2018-11-07] MEDS: LEVEMIR (INSULIN DETEMIR) 1 UNITS/0.01ML SC SCH ×2 (08:59→20:36)
[2018-11-07] MEDS: FLUTICASONE PROP 0.05% NASAL SPRAY 16 GM (FLONASE) SCH (08:59)
--- NOTE | 2018-11-07 11:56 | ECWPNAD ---
PATIENT NAME: JEFF HERNANDEZ : 1950 GENDER: FEMALE VISIT DATE: 10/18/2018 DISCHARGE DATE: 10/18/18 0000 VISIT LOCKED DATE TIME: PHYSICIAN: CARLITOS MEI MD PHYSICIAN PAGER NO: [phone] RESOURCE: CARLITOS MEI MD REASON FOR APPOINTMENT 1. ADMIT H + P HISTORY OF PRESENT ILLNESS GENERAL: PROGRESSIVE SOB, JAMES, INC EDEMA, GENERALIZED WEAKNESS OVER PAST 2-3 WEEKS. SEEN AT [facility] 09/27/18, WT GAIN NOTED, FELT TO BE COMPENSATED. SEEN AT 10/11, DX WITH "SINUSITIS" ANBD TREATED WITH OMNICEF AND FLONASE. CAME TO ER AFTER UNABLE TO WALK AT HOME, BNP HIGFH, INFILTRATES ON CXR. ADMITTED FOR CHF. CURRENT MEDICATIONS TAKING GLUCOMETER DIRECTED _ TWICE DAILY ASDIRECTED DX E11.9 TAKING PEN NEEDLES 01/05" 01/05 - 1 SQ TID PRN TAKING AMIODARONE HCL 200 MG TABLET 1 TABLET ORALLY BID TAKING LOVASTATIN 20 MG TABLET 1 TABLET WITH A MEAL ORALLY ONCE A DAY TAKING LANTUS SOLOSTAR 100 UNIT/ML SOLUTION PEN-INJECTOR INJECT 38 UNITS SUBCUTANEOUSLY ONCE DAILY DIRECTED TAKING NITROGLYCERIN 0.4MG TABLET SUBLINGUAL 1 TABLET SUBLINGUAL EVERY 5 MIN IF NEEDED TAKING OMEPRAZOLE 20 MG CAPSULE DELAYED RELEASE TAKE ONE CAPSULE BY MOUTH EVERY DAY TAKING GLIMEPIRIDE 4 MG TABLET 1 TAB(S) ORALLY BID TAKING LISINOPRIL 5 5 MG TABLET 1 TAB ORALLY DAILY TAKING FERROUS GLUCONATE 240 (27 FE) MG TABLET 1 TABLET ORALLY ONCE A DAY TAKING BUSPIRONE HCL 5 MG TABLET 1 TABLET ORALLY BID PRN ANXIETY TAKING FUROSEMIDE 40MG TABLET 1 TABLET ORALLY ONCE A DAY TAKING ELIQUIS 5 MG TABLET 1 TAB ORALLY BID TAKING LEVOTHYROXINE SODIUM 100 MCG TABLET TAKE ONE TABLET BY MOUTH EVERY MORNING ON AN EMPTY STOMACH NOT-TAKING ASPIRIN 81MG 1 TABLET DAILY NOT-TAKING VITAMIN D 36411 UNIT CAPSULE 1 CAPSULE ORALLY 2 X WEEKLY NOT-TAKING FLUTICASONE PROPIONATE 50 MCG/ACT SUSPENSION 1 SPRAY IN EACH NOSTRIL NASALLY ONCE A DAY NOT-TAKING CITALOPRAM HYDROBROMIDE 10 MG TABLET 1 TABLET ORALLY ONCE A DAY NOT-TAKING BASAGLAR KWIKPEN 100 UNIT/ML SOLUTION PEN-INJECTOR 65 UNITS OR DIRECTED SUBCUTANEOUS DAILY PAST MEDICAL HISTORY TYPE 2 DIABETES MELLITUS HYPERTENSIVE HEART DISEASE CAD: S/P IWMI (06/02), CATH H 07/04 (RCA STENTS X 3), 03/07 (S/P PROXIMAL LAD STENT WITH 50 RESTENOSIS, TURNERS SYNDROME MOSAIC HYPOTHYROID HYPERCHOLESTEROLEMIA DEPRESSION OSTEOPOROSIS CONCUSSION FROM FALL AT [facility] PNEUMONIA/BRONCHITIS ATRIAL FIBRILLATION, FOLLOWED BERNIE, ON ELIQUIS; ON AMIODARONE, S/P DC CARDIOVERSION DIASTOLIC CHF, EF 65% ECHO 09/09 ECHO 09/09 EF 65%. 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 GASTROENTEROLOGY: NO NAUSEA, VOMITING, DIARRHEA, CONSTIPATION, MELENA, HEMATOCHEZIA . PSYCHOLOGY: NEGATIVE FOR, DEPRESSED MOOD, , ANXIETY, SLEEP DISTURBANCE . PULMONOLOGY: NO CHEST PAIN WITH BREATHING, COUGH, SPUTUM . HEMATOLOGY/LYMPH: NO ABNORMAL BLEEDING, EASY BRUISING, EPISTAXIS, RECTAL BLEEDING, HEMATURIA . EXAMINATION GENERAL EXAMINATION: GENERAL APPEARANCE:NO ACUTE DISTRESS, WELL NOURISHED AND HYDRATED; GARCÍA'S PHENOTYPE. PSYCHAPPROPRIATE MOOD AND AFFECT . HEENT:EOMI, NO SCLERAL ICTERUS, NARES PATENT, ORAL MUCOSA MOIST. NECK:NO LYMPHADENOPATHY, SUPPLE, NO THYROMEGALLY, NO JVD OR BRUITS. LUNGS:BILATERAL WHEEZES, BIBASILAR CRACKLES. HEART:NO MURMURS, REGULAR RATE AND RHYTHM. ABDOMEN:SOFT, NON-TENDER, NO ORGANOMEGALY, BOWEL SOUNDS ARE NORMAL. EXTREMITIES:BILATERAL PITTING EDEMA. NEUROLOGIC EXAM:INTACT, NO DEFICITS. ASSESSMENTS ACUTE ON CHRONIC HEART FAILURE WITH PRESERVED EJECTION FRACTION - I50.33 (PRIMARY) TYPE 2 DIABETES MELLITUS WITH HYPERGLYCEMIA - E11.65 ATHEROSCLEROSIS OF [place] CORONARY ARTERY OF [place] HEART WITHOUT ANGINA PECTORIS - I25.10 HYPOTHYROIDISM, UNSPECIFIED TYPE - E03.9 PAROXYSMAL ATRIAL FIBRILLATION - I48.0 TREATMENT ACUTE ON CHRONIC HEART FAILURE WITH PRESERVED EJECTION FRACTION CLINICAL NOTES: SEE ORDERS. ADMIT FOR IV LASIX NET NEGATIIVE 1200 ML/DAY, FR, 2 GR SODIUM DIET. TYPE 2 DIABETES MELLITUS WITH HYPERGLYCEMIA CLINICAL NOTES: SSI. PAROXYSMAL ATRIAL FIBRILLATION CLINICAL NOTES: CONT ELIQUIS. DISPOSITION & COMMUNICATION FOLLOW UP 1 WEEK ELECTRONICALLY SIGNED BY CARLITOS MEI MD, ON 10/28/2018 AT 04:43 PM EST DISCLAIMER : THIS IS A VISIT SUMMARY EXTRACTED FROM THE [facility] CHART. IT IS NOT A COPY OF THE [facility] PROGRESS NOTE. MTDD
--- NOTE | 2018-11-07 13:22 | IPNPDOC ---
Subjective Date Seen The patient was seen on 11/07/18. Subjective Chief Complaint/HPI No acute events overnight. Patient continues to do well with physical therapy but does not quite feel ready to go home. She feels she will be ok to do so tomorrow. States she feels tired and had difficulty sleeping. Denies chest pain, dyspnea, abdominal pain, fevers, chills, or productive cough. Objective Physical Examination General Exam: Positive: Alert, Cooperative, No Acute Distress Neck Exam: Positive: Supple; Negative: JVD Chest Exam: Positive: Clear to auscultation, Diminished; Negative: Normal air movement, Rales, Rhonchi, Wheezing Heart Exam: Positive: Rate Normal, Regular Rhythm, Normal S1, Normal S2 Abdomen Exam: Positive: Normal bowel sounds, Soft; Negative: Tenderness Extremity Exam: Positive: Edema (2+ pitting edema bilaterally. ); Negative: Cyanosis Skin Exam: Positive: Nl turgor and temperature, Other skin issue (bruising on chest and left thigh and along ankles. ) Neuro Exam: Positive: Normal Speech Psych Exam: Positive: Mental status NL, Oriented x 3; Negative: Mood NL Assessment /Plan Problems (1) Secondary bacterial pneumonia Status: Acute Response to Treatment: Improving Problem Text: 11/07- Doxy day 7 with stop date of 11/10. Will discharge tomorrow morning. 11/05 Pneumonia is likely mostly resolved, this is PO Doxy day 5 will have her complete 10 day course total. 11/04 Cont with PO doxy, anticipate D/C in AM. 11/03- Patient is doing well this AM and her lungs sounds the best they ever have since I have seen her. No signs of fluid overload or worsening pneumonia. 11/02 -- respiratory status appears stable today 11/01- Patient was started on PO Doxycycline yesterday and depending on how she responds to the lasix, pharmacy is recommending a possible switch to cefdinir which should cover her for gram positive infections. A portable CXR does show w orsening of her RLL infiltrate, however she has been afebrile, with no WBC count, and is complaining of generalized fatigue and weakness which could be from her fluid overloaded state. We will see how she responds to the lasix before we switch her antibiotics. 10/31- Patient is feeling much better and is progressing along well. We are switching her to oral antibiotics with Doxycycline as she has many drug allergies and does not require further broad spectrum IV antibiotics. 10/29- MRSA screen is negative, discontinuing Vancomycin today. Gram stain positive for gram positive cocci in pairs, chains and clusters, few gram positive rods with sputum culture showing normal molly. Meropenem will provide good broad spectrum coverage regardless. Given the timeline of her symptoms, I suspect she has secondary bacterial pneumonia rather than community acquired or nosocomial pneumonia's. This is the beginning of day 2 of her Meropenem, we will see how she progresses tomorrow. I suspect her symptoms fatigue and aching are all symptomatic of her current infection. 10/28 - CXR: Increased markings right mid and lower lung zone today consistent with new infiltrate. Borderline heart size with pacemaker. Will treat for nosocomial pneumonia with Meropenem and Vanco until MRSA screen and sputum cultures return. Staph infection possible considering current flu. cont nebs Add Mucinex (2) Acute on chronic diastolic (congestive) heart failure Status: Acute Response to Treatment: Improving, Worse Problem Text: 11/07- Will need to adjust lasix dosing as I'm not sure the 40 mg oral will be enough outpatient. 11/05 Lasix weaned down to 40 mg IV BID as patient still has pitting edema but I think it is improved, will order BNP to see if she is fully compensated as her net weights seem to vary daily despite adequate diuresis. At this point I don't feel she is fully ready for discharge home, but I think we are close. 11/04 Lassix 40 mg IV 18h, Net Neg -440 yesterday, anticipate d/c home on Lasix 40 mg po daily tomorrow. Safe per PT 11/03. 11/03- Patient leg edema is improved from yesterday. Her weight is also down, will continue with IV diuresis for the time being as the patient still d efinitely has leg edema, chaning lasix 40mg from q6 to q8 hours. 11/02 -- edema appears improved as compared to yesterday 11/01- Patient has significantly worse edema this AM even compared to yesterday. Her records indicate she has not been getting more than 1800cc of fluid except a single time in the last 4-5 days. She has not had a daily weight since 10/24/18, we will put in nursing orders for more consistent I/Os and daily weights. Her current weight today is 101 kg, which is what it was on admission. I suspect her blood pressure is low as a result of her fluid overload from her diastolic CHF, we will diurese her more aggressively starting out with IV lasix to see if her symptoms improve as her CHF could be playing a role in how she feels. 10/29- Compensated. No crackles or worsening edema on exam. 10/28 - compensated on po Lasix 10/27 - Cont po Lasix now. Appears euvolemic I & O inaccurate. Continue Fluid restriction of 1800 ml. Echo showed EF 45% (3) Influenza Status: Acute Response to Treatment: Stable Problem Text: 10/28 - flu screen positive 10/20 - likely present on admission. S/P Tamiflu x 5 days 10/27 - Influenza screen positive 10/20 - likely flu was present on admission. Now coughing up purulent sputum with increased cough. Tmax 99.4. May have supperimposed bacterial infection such as staph. Get CXR, CBCD, sputum C & S, and MRSA screen. Start Doxy empirically (Multiple drug allergies) 10/26 - Resp status stable. s/p Tamiflu x 5 days. Cont nebs & prednisone for bronchospasm. Repeat CXR was done 10/19 showing improved inftilrate on CXR. Still no white count or fever so no role for abx Noct Ox 10/22 - showed some desaturation - Has h/o known QING per study done by Neurology but refused CPAP Oxygen levels appear stable per vitals signs (4) Diabetes type 2, uncontrolled Status: Chronic Problem Text: 10/31- Daily glucose levels have been elevated on 46 units of levemir, will switch this to 25 units twice daily for better glucose coverage to see if that brings them down. 10/26/18 Cont SSI - Lantus restarted - increase slightly (normally on 38 units daily) cont to hold Glimeperide (normally on 4 BID) (5) Paroxysmal atrial flutter Status: Chronic Problem Text: 10/26 - rate remains controlled with amiodarone on hold for side effects cont Eliquis (6) Hypertension Status: Chronic Response to Treatment: Stable Problem Text: continue meds once her BUN/Creat have returned to baseline. (7) Hyperlipidemia Status: Chronic Response to Treatment: Stable (8) QING (obstructive sleep apnea) Status: Chronic Problem Text: non-compliant with CPAP at home, states intolerant in the past. (9) Infiltrate of lung present on imaging of chest Status: Acute Problem Text: 10/29- See above under "nosocomial pneumonia", I suspect this is a secondary bacterial infection from her influenza. 10/28 - see above - new infiltrate Plan/VTE VTE Prophylaxis Ordered?: Yes (eliquis) Plan Therapy: PT VS, I&O, 24H, Fishbone Vital Signs/I&O Vital Signs Date Time Temp Pulse Resp B/P (MAP) Pulse Ox O2 Delivery O2 Flow Rate FiO2 11/07/18 06:00 97.6 70 16 135/66 (89) 97 I&O- Last 24 Hours up to 6 AM 11/07/18 06:00 Intake Total 1180 ml Output Total 1500 ml Balance -320 ml Laboratory Data 24H LABS Laboratory Tests 2 11/06/18 17:05: Bedside Glucose (Misc Panel) 159H 11/06/18 19:58: Bedside Glucose (Misc Panel) 220H 11/07/18 06:29: Nucleated Red Blood Cells % (auto) 0.0, Anion Gap 6L, Glomerular Filtration Rate 44.0L, Blood Urea Nitrogen 37H, Creatinine 1.29, Sodium Level 135L, Potassium L evel 4.1, Chloride Level 100, Carbon Dioxide Level 29, Calcium Level 8.5L 11/07/18 11:53: Bedside Glucose (Misc Panel) 234H CBC/BMP Laboratory Tests 11/07/18 06:29 Red Blood Count 3.19 L, Mean Corpuscular Volume 88.4, Mean Corpuscular Hemoglobin 28.5, Mean Corpuscular Hemoglobin Concent 32.3, Red Cell Distribution Width 13.6, Calcium Level 8.5 L GME ATTESTATION GME ATTESTATION My faculty preceptor for this patient encounter was physically present during the encounter and was fully available. All aspects of the patient interview, examination, medical decision making process, and medical care plan development were reviewed and approved by the faculty preceptor. The faculty preceptor is aware and concurs with the plan as stated in the body of this note and will attest to such by his/her cosignature. LINETTE BARRIOS DO Nov 07, 2018 13:22
[2018-11-07 14:00] VITALS: BP 115/62
[2018-11-07] MEDS: FUROSEMIDE 80 MG TAB PO SCH (17:43)
[2018-11-07 20:00] VITALS: BP 121/70
[2018-11-07] MEDS: ROSUVASTATIN 10 MG TAB (CRESTOR) PO SCH (20:37)
[2018-11-08] MEDS: IPRATROPIUM 0.5MG/ALBUTEROL 2.5MG INH SOL UD 3ML (DUONEB)(J7620) NEB SCH ×2 (02:00→08:41)
[2018-11-08 05:00] VITALS: BP 139/83
[2018-11-08] MEDS: LEVOTHYROXINE 100MCG TABLET (0.1MG) PO SCH (05:24)
[2018-11-08 07:03] LABS: HEMATOCRIT 31.2 % (36.0-47.0); HEMOGLOBIN 10.1 g/dl (12.0-15.5); MEAN CORPUSCULAR HEMOGLOBIN 28.6 pg (27.0-33.0); MEAN CORPUSCULAR HGB CONC 32.4 g/dl (32.0-36.5); MEAN CORPUSCULAR VOLUME 88.4 fl (80.0-96.0); PLATELET COUNT, AUTOMATED 302 10^3/uL (150-450); RED BLOOD COUNT 3.53 10^6/uL (4.00-5.40); WHITE BLOOD COUNT 7.5 10^3/uL (4.0-10.0)
[2018-11-08 07:27] LABS: CALCIUM LEVEL 8.9 MG/DL (8.8-10.2); CREATININE FOR GFR 1.17 MG/DL (0.55-1.30); GLOMERULAR FILTRATION RATE 49.3 (>45)
[2018-11-08] MEDS ORDERED: KLOR10TA76 PO (08:27)
[2018-11-08] MEDS ORDERED: FURO80TA2 PO (08:27)
[2018-11-08] MEDS ORDERED: INSUDET SC (08:27)
[2018-11-08] MEDS: FLUTICASONE PROP 0.05% NASAL SPRAY 16 GM (FLONASE) SCH (09:00)
[2018-11-08] MEDS: guaiFENesin ER 600 MG TAB PO SCH (09:05)
[2018-11-08] MEDS: FUROSEMIDE 80 MG TAB PO SCH (09:05)
[2018-11-08] MEDS: LEVEMIR (INSULIN DETEMIR) 1 UNITS/0.01ML SC SCH (09:05)
[2018-11-08] MEDS: HumaLOG INSULIN (NovoLOG) PER UNIT SC SCH (09:05)
[2018-11-08] MEDS: APIXABAN 5 MG TAB (ELIQUIS) PO SCH (09:06)
[2018-11-08] MEDS: BISACODYL 5 MG TAB PO SCH (09:06)
[2018-11-08] MEDS: LACTOBACILLUS ACIDOPHILUS CAP (BACID) PO SCH (09:06)
[2018-11-08] MEDS: POTASSIUM CHLORIDE 10 MEQ SR TABLET PO SCH (09:06)
--- NOTE | 2018-11-09 17:27 | DS.PDOC ---
Discharge Summary General Date of Admission Oct 18, 2018 at 10:33 Date of Discharge 11/08/2018 Primary Care Physician: Brad Levine M.D. Attending Physician: Bipin Myers M.D. Discharge Summary PROCEDURES PERFORMED DURING STAY: [None]. ADMITTING/DISCHARGE DIAGNOSES: #. #. #. #. #. #. #. #. COMPLICATIONS/CHIEF COMPLAINT: Heart Failure With Preserved Ejection Fraction. HISTORY OF PRESENT ILLNESS: . HOSPITAL COURSE: . DISCHARGE MEDICATIONS: Please see below. ALLERGIES: Please see below. PHYSICAL EXAMINATION ON DISCHARGE: VITAL SIGNS: Please see below. GENERAL: Alert, oriented, no acute distress. HEENT: Normocephalic, atraumatic. EOMI. Mucous membranes are moist and pain. No pharyngeal exudate or erythema. NECK: Trachea midline, no JVD, no lymphadenopathy. CARDIOVASCULAR EXAMINATION: RRR. Normal S1 and S2. No murmurs, gallops, rubs. RESPIRATORY EXAMINATION: CTAB with full breath sounds bilaterally. No wheezes, crackles, rhonchi. ABDOMINAL EXAMINATION: Obese. Bowel sounds present. Soft, nontender, nondistended. EXTREMITIES: 1+ pitting edema in bilateral lower extremities. SKIN: NEUROLOGICAL EXAMINATION: PSYCHIATRIC EXAMINATION: LABORATORY DATA: Please see below. IMAGING: PROGNOSIS: ACTIVITY: [As tolerated]. DIET: DISCHARGE PLAN: DISPOSITION: 01 Home, Self-Care. DISCHARGE INSTRUCTIONS: 1. . ITEMS TO FOLLOWUP ON ON OUTPATIENT: 1. . DISCHARGE CONDITION: [Stable]. TIME SPENT ON DISCHARGE: Greater than minutes. Vital Signs/I&Os Vital Signs Date Time Temp Pulse Resp B/P (MAP) Pulse Ox O2 Delivery O2 Flow Rate FiO2 11/08/18 05:00 96.9 70 18 139/83 (101) 96 I&O- Last 24 Hours up to 6 AM 11/09/18 06:00 Intake Total 360 ml Balance 360 ml Discharge Medications Scheduled Amiodarone HCl (Amiodarone HCl) 200 Mg Tab, 200 MG PO QHS, (Reported) Apixaban Base (Eliquis) 5 Mg Tab, 5 MG PO BID, (Reported) Fluticasone Propionate (Flonase Allergy Relief) 50 Mcg/Act Spr, 2 SPRAYS NA DAILY, (Reported) Furosemide (Furosemide) 80 Mg Tab, 80 MG PO DAILY Please take 80 mg every day. Glimepiride (Glimepiride) 4 Mg Tab, 4 MG PO BID, (Reported) Insulin Detemir (Levemir) 1 Units/0.01 Ml Susp, 25 UNITS SC BID Please take 25 units in the morning and 25 units in the evening Levothyroxine Sodium (Synthroid) 100 Mcg Tab, 100 MCG PO DAILY, (Reported) Potassium Chloride (Klor-Con M10) 10 Meq Tabcr, 20 MEQ PO BID Please take 1 tablet twice daily Rosuvastatin Calcium (Crestor) 20 Mg Tab, 20 MG PO Q2D, (Reported) TAKES EVERY OTHER NIGHT Scheduled PRN Meclizine HCl (Meclizine HCl) 12.5 Mg Tab, 12.5 MG PO TID PRN for DIZZINESS, (Reported) Nitroglycerin (Nitrostat) 0.4 Mg Subl, 0.4 MG SL NITRO PRN for CHEST PAIN, (Reported) Allergies Coded Allergies: Clavulanic Acid (Unverified Allergy, Unknown, RASH, 10/18/17) Metformin (Unverified Allergy, Unknown, DECREASED AMBULATION, diarrhea, 10/18/17) Penicillins (Unverified Allergy, Unknown, RASH, 10/18/17) Penicillins Cross Reactors (Unverified Allergy, Unknown, RASH, 10/18/17) Quinolones (Unverified Allergy, Unknown, HIVES, 10/18/17) Sulfa Drugs (Unverified Allergy, Unknown, RASH, 10/18/17) Sulfa Drugs Cross Reactors (Unverified Allergy, Unknown, RASH, 10/15/17) Sulfamethoxazole (Unverified Allergy, Unknown, RASH, 10/15/17) Trimethoprim (Unverified Allergy, Unknown, RASH, 10/15/17) Cephalosporins (Unverified Adverse Reaction, Unknown, YEAST, 10/15/17) LINETTE BARRIOS DO Nov 09, 2018 17:27
== END 2018-11-08 11:11 | disposition home or self-care (01) | DRG 291 ==
LOC: M ED 04:27 → M ED INP 10:33 → M PCU 16:03 → M MS4PR 10-23 11:50
PROVIDERS: ADMIT Family Medicine; ATTEND Family Medicine
DX: I11.0 Hypertensive heart disease with heart failure (principal); J10.00 Influenza due to other identified influenza virus with unspecified type of pneumonia; J15.9 Unspecified bacterial pneumonia; I48.92 Unspecified atrial flutter; I50.43 Acute on chronic combined systolic (congestive) and diastolic (congestive) heart failure; E11.65 Type 2 diabetes mellitus with hyperglycemia; I25.10 Atherosclerotic heart disease of native coronary artery without angina pectoris; E03.9 Hypothyroidism, unspecified; E78.00 Pure hypercholesterolemia, unspecified; F32.9 Major depressive disorder, single episode, unspecified; M81.0 Age-related osteoporosis without current pathological fracture; I48.0 Paroxysmal atrial fibrillation; Q96.9 Turner's syndrome, unspecified; G47.33 Obstructive sleep apnea (adult) (pediatric); Z95.5 Presence of coronary angioplasty implant and graft; Z86.73 Personal history of transient ischemic attack (TIA), and cerebral infarction without residual deficits; Z95.0 Presence of cardiac pacemaker; Z91.19 Patient's noncompliance with other medical treatment and regimen; Z88.2 Allergy status to sulfonamides; Z88.1 Allergy status to other antibiotic agents; Z88.6 Allergy status to analgesic agent; Z88.8 Allergy status to other drugs, medicaments and biological substances; Z79.4 Long term (current) use of insulin; Z79.01 Long term (current) use of anticoagulants; Z79.899 Other long term (current) drug therapy

== ENCOUNTER → 2018-11-14 | Outpatient (REF) | payer MEDICARE ==
[~2018-11-14] MED LIST changes: +CEFD1CAP8 PO; +FURO20TA2 PO; +FURO80TA2 PO; +INSUDET SC; +KLOR10TA76 PO; +MECL12.575 PO
[2018-11-14 17:30] LABS: CALCIUM LEVEL 8.9 MG/DL (8.8-10.2); CREATININE FOR GFR 1.09 MG/DL (0.55-1.30); GLOMERULAR FILTRATION RATE 53.5 (>45); POTASSIUM SERUM 3.4 MEQ/L (3.5-5.1)
== END ==
LOC: M SFHCCLAY 11:52
PROVIDERS: ATTEND Family Medicine
DX: J11.00 Influenza due to unidentified influenza virus with unspecified type of pneumonia (principal); R39.198 Other difficulties with micturition

== ENCOUNTER 2018-11-21 10:07 | Observation (INO) | payer MEDICARE ==
[~2018-11-21] VITALS: Ht 152.4 cm; Wt 96.2 kg
[~2018-11-21 10:07] MED LIST changes: -/ONDA4TA PO; -AMMO12CR4 TOP; +AMMO12CR7 TOP; +ASPI-255 PO; -ASPI325T25 PO; -ASPI81CH PO; +ASPI81CH49 PO; +CRES10TA PO; -CRES10TA32 PO; -CRES20TA PO; +CRES20TA2 PO; -FURO20TA2 PO; +ONDA-1 PO
[2018-11-21] MEDS ORDERED: NS 1,000 ML IV SCH (11:05)
[2018-11-21 11:17] LABS: BASO % 0.4 % (0.0-1.0); HEMATOCRIT 30.8 % (36.0-47.0); HEMOGLOBIN 10.4 g/dl (12.0-15.5); LYMPH # 0.5 10^3/uL (1.5-4.5); LYMPH % 4.7 % (24.0-44.0); MEAN CORPUSCULAR HEMOGLOBIN 29.5 pg (27.0-33.0); MEAN CORPUSCULAR HGB CONC 33.8 g/dl (32.0-36.5); MEAN CORPUSCULAR VOLUME 87.3 fl (80.0-96.0); MONO # 0.8 10^3/uL (0.0-0.8); MONO % 7.4 % (0.0-5.0); NEUTROPHILS # 8.9 10^3/uL (1.8-7.7); NEUTROPHILS % 86.8 % (36.0-66.0); PLATELET COUNT, AUTOMATED 198 10^3/uL (150-450); RED BLOOD COUNT 3.53 10^6/uL (4.00-5.40); WHITE BLOOD COUNT 10.3 10^3/uL (4.0-10.0)
--- NOTE | 2018-11-21 11:33 | REP ---
CT Head without contrast HISTORY: Altered mental status COMPARISON: 10/18/2018 An area of decreased attenuation is present in the inferior left cerebellum. This represents an old infarction. Areas of decreased attenuation are present in the periventricular white matter. This represents small-vessel ischemic disease. There is no intraparenchymal hemorrhage, acute infarct, mass or midline shift. The ventricular system and cortical sulci are dilated consistent with mild volume loss. There is no extra cerebral collection. There is no fracture. The visualized sinuses are clear. IMPRESSION: 1. Old left cerebellar infarction. 2. Small vessel ischemic disease. 3. Mild volume loss. Electronically Signed by Ted Verde MD 11/21/2018 11:24 A
[2018-11-21 11:42] LABS: ALBUMIN 2.7 GM/DL (3.2-5.2); ALT/SGPT 32 U/L (12-78); BILIRUBIN,DIRECT 0.3 MG/DL (0.0-0.2); BILIRUBIN,TOTAL 0.6 MG/DL (0.2-1.0); BLOOD UREA NITROGEN 20 MG/DL (7-18); CARBON DIOXIDE LEVEL 26 MEQ/L (21-32); CHLORIDE LEVEL 90 MEQ/L (98-107); CK-MB VALUE MASS < 1.0 NG/ML (<3.6); CPK CREATINE PHOSPHOKINASE 68 U/L (26-192); GLOMERULAR FILTRATION RATE 52.9 (>45); GLUCOSE, FASTING 262 MG/DL (70-100); MB/CK RELATIVE INDEX 1.47 (< OR =4); POTASSIUM SERUM 3.4 MEQ/L (3.5-5.1); SODIUM LEVEL 129 MEQ/L (136-145); TOTAL PROTEIN 6.2 GM/DL (6.4-8.2); TROPONIN I < 0.02 NG/ML (< 0.10)
--- NOTE | 2018-11-21 11:42 | REP ---
CT Lumbar Spine without contrast HISTORY: Altered mental status COMPARISON: 08/17/2018 A diffuse disc bulge is present at the L1-2 level. There is minimal compression of the thecal sac. The L1 nerves exit the neural foramina without compression. A diffuse disc bulge is present at the L2-3 level. There is minimal compression of the thecal sac. The L2 nerves exit the neural foramina without compression. A diffuse disc bulge is present in the L3-4 level. There is minimal compression of the thecal sac. The L3 nerves exit the neural foramina without compression. A diffuse disc bulge is present at the L4-5 level. There is minimal compression of the thecal sac. There is hypertrophy of the posterior articulating facets. The L4 nerves exit the neural foramina without compression. A diffuse disc bulge is present at the L5-L1 level. There is minimal compression of the thecal sac. There is hypertrophy of the posterior articulating facets. The L5 nerves exit the neural foramina without compression. The L3-4 through L5- S1 intervertebral discs are decreased in height. Vacuum phenomenon is present at the T12-L1 and L2-3 levels. These findings are consistent with disc degeneration. There are old compression fractures of the L1 and L2 vertebral bodies with minimal height loss. Calcification is present in the gallbladder consistent with cholelithiasis. IMPRESSION: 1. Diffuse disc bulges at the L1-2 through L5-L1 levels with minimal thecal sac compression. 2. Old L1 and L2 compression fractures with minimal height loss. 3. Cholelithiasis. Electronically Signed by Ted Verde MD 11/21/2018 11:34 A
[2018-11-21 11:47] LABS: OSMOLALITY SERUM 281 MOSM/KG (280-301)
[2018-11-21 12:02] LABS: VENOUS BASE EXCESS 1.9 (-2.0-2.0); VENOUS HCO3 26.2 MEQ/L (23.0-27.0); VENOUS PARTIAL PRESSURE CO2 39.9 mmHg (38.0-50.0); VENOUS PARTIAL PRESSURE O2 70.7 mmHg (30.0-50.0); VENOUS PH 7.435 UNITS (7.330-7.430); VENOUS STANDARD HCO3 26.1 MEQ/L; VENOUS TOTAL CO2 27.4 MEQ/L (24.0-28.0)
--- NOTE | 2018-11-21 12:49 | REP ---
CHEST, SINGLE VIEW: AP view of the chest is performed and compared to a prior study of 11/01/2018. Cardiomegaly is again noted. There is calcification of the thoracic aorta. The mediastinal silhouette is unchanged. The left pacemaker is again seen. Chronic interstitial changes are essentially unchanged. Right lower lobe opacity has improved. There is no new infiltrate. IMPRESSION: Cardiomegaly and chronic changes. No new infiltrate. Resolving mild right basilar opacity. Electronically Signed by Bryant Ott MD 11/21/2018 04:30 P
[2018-11-21] MEDS ORDERED: FURO20TA2 PO (15:12)
[2018-11-21] MEDS ORDERED: MECLIZINE 12.5 MG TAB PO PRN (18:00)
[2018-11-21] MEDS ORDERED: NITROGLYCERIN 0.4 MG SUBL TABLET SL PRN (18:00)
[2018-11-21] MEDS ORDERED: FLUTICASONE PROP 0.05% NASAL SPRAY 16 GM (FLONASE) PRN (18:00)
--- NOTE | 2018-11-21 18:38 | HPE ---
DATE OF ADMISSION: 11/21/2018 68-year-old female with a past medical history of diabetes, hypertension, hyperlipidemia, coronary artery disease, status post myocardial infarction, status post three stent placement, atrial fibrillation, who presents to the emergency room with decreased ability to ambulate since her recent discharge from the hospital. She has been having difficulty getting out of her seated position to standing and when ambulating to the point where her son has to feed her physically and so she came to the emergency room for evaluation. Physical therapy (PT) saw her in the emergency room and deemed her not stable for discharge, so she is being admitted for debility. She will likely need subacute rehabilitation. She denies any chest pain, shortness of breath, abdominal pain, nausea, vomiting, vertigo, headache. PAST MEDICAL HISTORY: Again, past medical history of: 1. Diabetes. 2. Hypertension. 3. Hyperlipidemia. 4. Hypothyroidism. 5. Coronary artery disease, status post myocardial infarction. 6. Status post three stent placement. 7. History of Arriola syndrome. 8. Chronic diastolic heart failure with ejection fraction of 40%. 9. History of atrial fibrillation. 10. History of embolic left cerebellar infarct. ALLERGIES: She has drug allergies to CEPHALOSPORIN, PENICILLIN, QUINOLONES, SULFA DRUGS, CLAVULANIC ACID, METFORMIN. FAMILY HISTORY: Noncontributory. SOCIAL HISTORY: The patient denies tobacco, alcohol, or illicit drugs. MEDICATIONS: She takes at home: - Apixaban 5 mg by mouth twice a day - fluticasone two sprays in each nostril daily as needed - Lasix 60 mg by mouth daily - glimepiride 4 mg by mouth twice a day - insulin Detemir 25 units subcutaneously twice a day - Synthroid 100 mcg by mouth daily - meclizine 12.5 mg by mouth three times a day as needed - nitroglycerin 0.4 mg sublingual every 5 minutes as needed - potassium chloride 20 mEq by mouth twice a day - rosuvastatin 20 mg by mouth two daily REVIEW OF SYSTEMS: Negative for all ten major systems except what is mentioned in the history of present illness. PHYSICAL EXAMINATION: VITAL SIGNS: Blood pressure 129/62, heart rate is 69 and regular, respiratory rate is 18, temperature 99.7, oxygen saturation 96% on room air. Head is atraumatic, normocephalic. Neck is supple with no jugular venous distention (JVD). Lungs clear to auscultation. S1, S2 audible. No murmurs appreciated. Abdomen is soft. Positive bowel sounds. No pedal edema. Skin is intact. Neurologic examination, the patient is awake, alert and oriented times three. LABORATORIES: WBC 10.3, hemoglobin 10.4, hematocrit 30.8, platelets 198,000. Sodium 129, potassium 3.4, chloride 90, CO2 of 26, BUN 20, creatinine 1.10, glucose 262, lactic acid 1.5, troponin is less than 0.02, TSH 2.530. Venous blood gas showed pH 7.435. IMPRESSION: 1. Falls. 2. Debility. 3. Hyponatremia. PLAN: The patient is to be admitted to the medical/surgical floor. We will continue all preadmission medications and have physical therapy (PT) and occupational therapy (OT) evaluate her. She will likely need subacute rehabilitation. Hyponatremia is likely hypovolemic in nature. I will give her gentle hydration with normal saline at 100 mL an hour and we will repeat the basic metabolic panel (BMP) in the morning to follow sodium trends. We will continue following her care on the medical/surgical floor.
[2018-11-21 20:32] VITALS: BP 134/58
[2018-11-21] MEDS ORDERED: ROSUVASTATIN 10 MG TAB (CRESTOR) PO SCH (21:00)
[2018-11-21] MEDS ORDERED: ACETAMINOPHEN TAB 650MG DOSE (2X325MG) PO PRN (21:45)
[2018-11-21] MEDS: POTASSIUM CHLORIDE 10 MEQ SR TABLET PO SCH (21:52)
[2018-11-21] MEDS: APIXABAN 5 MG TAB (ELIQUIS) PO SCH (21:52)
[2018-11-21] MEDS: NS 1,000 ML IV SCH (21:53)
[2018-11-21] MEDS: LEVEMIR (INSULIN DETEMIR) 1 UNITS/0.01ML SC SCH (21:53)
[2018-11-22] MEDS: LEVOTHYROXINE 100MCG TABLET (0.1MG) PO SCH (05:22)
[2018-11-22 06:00] VITALS: BP 131/61
[2018-11-22 07:06] LABS: BLOOD UREA NITROGEN 14 MG/DL (7-18); CALCIUM LEVEL 8.3 MG/DL (8.8-10.2); CARBON DIOXIDE LEVEL 30 MEQ/L (21-32); CHLORIDE LEVEL 98 MEQ/L (98-107); CREATININE FOR GFR 0.92 MG/DL (0.55-1.30); GLOMERULAR FILTRATION RATE > 60.0 (>45); GLUCOSE, FASTING 93 MG/DL (70-100); SODIUM LEVEL 135 MEQ/L (136-145)
[2018-11-22] MEDS: LEVEMIR (INSULIN DETEMIR) 1 UNITS/0.01ML SC SCH (09:00)
[2018-11-22] MEDS ORDERED: FUROSEMIDE 20 MG TAB PO SCH (09:00)
[2018-11-22] MEDS: NS 1,000 ML IV SCH (09:07)
[2018-11-22] MEDS: POTASSIUM CHLORIDE 10 MEQ SR TABLET PO SCH ×2 (09:09→21:09)
[2018-11-22] MEDS: APIXABAN 5 MG TAB (ELIQUIS) PO SCH ×2 (09:10→21:09)
[2018-11-22] MEDS: GLIMEPIRIDE 2 MG TAB PO SCH ×2 (09:10→18:00)
--- NOTE | 2018-11-22 11:43 | IPNPDOC ---
Subjective Date Seen The patient was seen on 11/22/18. Subjective Chief Complaint/HPI Feels well - no complaints Constitutional: Denies: Chills, Fever Pulmonary: Denies: Dyspnea, Cough Cardiovascular: Denies: Chest Pain, Palpitations Gastrointestinal: Denies: Nausea, Vomiting, Abdominal Pain, Diarrhea, Constipation Objective Physical Examination General Exam: Positive: Alert, No Acute Distress Chest Exam: Positive: Clear to auscultation; Negative: Rales, Rhonchi, Wheezing Heart Exam: Positive: Rate Normal, Regular Rhythm Abdomen Exam: Positive: Normal bowel sounds, Soft; Negative: Tenderness Extremity Exam: Negative: Edema Assessment /Plan Problems (1) Hyponatremia Status: Acute Problem Text: 11/22 - improving with IVF she is eating adn drinking well, so I will hold furtehr IVF for now Hold Lasix this am, but will likely need this restarted eventually - possibly lower dose upon d/c to prevent hyponatremia (2) Hypokalemia Status: Acute Problem Text: replace orally Check mag Holding Lasix as above (3) Diastolic CHF Status: Chronic Response to Treatment: Stable Problem Text: compensated currently - see above (4) Paroxysmal A-fib Status: Chronic Response to Treatment: Stable Problem Text: rate controlled Cont ELiquis (5) Hypothyroidism Status: Chronic Response to Treatment: Stable (6) Diabetes Status: Chronic (7) Diabetes Status: Chronic Problem Text: Normally on Amaryl and Levemir BS on low side this am - Change Levemir to hs only for now and monitor trends Plan/VTE VTE Prophylaxis Ordered?: Yes (Eliquis) Plan Therapy: PT, OT Disposition ARU screen ordered VS, I&O, 24H, Fishbone Vital Signs/I&O Vital Signs Date Time Temp Pulse Resp B/P (MAP) Pulse Ox O2 Delivery O2 Flow Rate FiO2 11/22/18 06:00 97.6 67 16 131/61 (84) 95 11/21/18 19:01 Room Air I&O- Last 24 Hours up to 6 AM 11/22/18 06:00 Intake Total 1770 ml Output Total 300 ml Balance 1470 ml Laboratory Data 24H LABS Laboratory Tests 2 11/21/18 11:52: Bedside Glucose (Misc Panel) 242H 11/21/18 11:53: Blood Gas Bicarbonate Standard 26.1, Venous Blood pH 7.435H, Venous Blood Partial Pressure CO2 39.9, Venous Blood Partial Pressure O2 70.7H, Venous Blood Total Carbon Dioxide 27.4, Venous Blood HCO3 26.2, Venous Blood Oxygen Satur ation 94.0H, Venous Blood Base Excess 1.9, Lactic Acid Level 1.5, Ammonia < 10 11/21/18 18:02: Urine Color YELLOW, Urine Appearance CLOUDYH, Urine pH 5.0, Urine Specific [place] 1.013, Urine Protein 1+H, Urine Glucose (UA) 1+H, Urine Ketones 1+H, Urine Blood 2+H, Urine Nitrite NEGATIVE, Urine Bilirubin NEGATIVE, Urine Urobilinogen 0.2, Urine Leukocyte Esterase 3+H, Urine WBC (Auto) TNTCH, Urine RBC (Auto) 20H, Urine Hyaline Casts (Auto) 7, Urine Bacteria (Auto) 3+H, Urine Squamous Epithelial Cells 4, Urine Mucus (Auto) SMALL, Urine Sperm (Auto) 11/21/18 20:49: Bedside Glucose (Misc Panel) 194H 11/22/18 06:35: Anion Gap 7L, Glomerular Filtration Rate > 60.0, Blood Urea Nitrogen 14, Creatinine 0.92, Sodium Level 135L, Potassium Level 3.0L, Chloride Level 98, Carbon Dioxide Level 30, Calcium Level 8.3L 11/22/18 11:11: Bedside Glucose (Misc Panel) 142H CBC/BMP Laboratory Tests 11/22/18 06:35 Calcium Level 8.3 L Microbiology Microbiology 11/21/18 Blood Culture, Received Pending 11/21/18 Blood Culture, Received Pending 11/21/18 Urine Culture, Received Pending ARSEN MEI PA-C Nov 22, 2018 11:43
[2018-11-22] MEDS ORDERED: POTASSIUM CHLORIDE 10 MEQ SR TABLET PO ONE (12:00)
[2018-11-22 12:17] LABS: MAGNESIUM LEVEL 2.3 MG/DL (1.8-2.4)
[2018-11-22 14:00] VITALS: BP 128/65
[2018-11-22] MEDS ORDERED: LEVEMIR (INSULIN DETEMIR) 1 UNITS/0.01ML SC SCH (21:00)
--- NOTE | 2018-11-22 21:46 | ECGEPIP ---
Stationary ECG Study [facility] - ED Test Date: 2018-11-21 Pat Name: JEFF HERNANDEZ Department: Room: - Gender: F [employer] Developer: : 1950 Requested By: Linsey Cannon Order Number: [id number] Reading MD: Raymundo Thurman Measurements Intervals [place] Rate: 69 P: 141 CT: 197 QRS: 27 QRSD: 203 T: -29 QT: 510 QTc: 550 Interpretive Statements ELECTRONIC ATRIAL PACEMAKER ELECTRONIC VENTRICULAR PACEMAKER SIMILAR TO 10/18/18 Electronically Signed On 11-22-2018 21:46:47 EDT by Raymundo Thurman
[2018-11-22 22:00] VITALS: BP 138/62
[2018-11-22] MEDS ORDERED: GLUCOSE 4 GM CHEW TABLET PO PRN (22:30)
[2018-11-22] MEDS ORDERED: GLUCAGON FOR INJ 1 MG VIAL (J1610) SC PRN (22:30)
[2018-11-22] MEDS ORDERED: DEXTROSE 50% 50 ML SYRINGE IV PRN (22:30)
[2018-11-23] MEDS: LEVOTHYROXINE 100MCG TABLET (0.1MG) PO SCH (05:33)
[2018-11-23 06:00] VITALS: BP 126/62
[2018-11-23 06:20] LABS: ALBUMIN 2.4 GM/DL (3.2-5.2); ALT/SGPT 31 U/L (12-78); BILIRUBIN,TOTAL 0.3 MG/DL (0.2-1.0); BLOOD UREA NITROGEN 10 MG/DL (7-18); CALCIUM LEVEL 8.3 MG/DL (8.8-10.2); CARBON DIOXIDE LEVEL 26 MEQ/L (21-32); CHLORIDE LEVEL 103 MEQ/L (98-107); CREATININE FOR GFR 0.89 MG/DL (0.55-1.30); GLOMERULAR FILTRATION RATE > 60.0 (>45); GLUCOSE, FASTING 54 MG/DL (70-100); POTASSIUM SERUM 3.8 MEQ/L (3.5-5.1); SODIUM LEVEL 136 MEQ/L (136-145); TOTAL PROTEIN 6.4 GM/DL (6.4-8.2)
[2018-11-23] MEDS ORDERED: GLUCOSE 4 GM CHEW TABLET PO PRN (07:00)
[2018-11-23] MEDS ORDERED: NITROFURANTOIN (MACROBID) 100 MG CAP PO SCH (09:00)
[2018-11-23] MEDS: POTASSIUM CHLORIDE 10 MEQ SR TABLET PO SCH (09:24)
[2018-11-23] MEDS: APIXABAN 5 MG TAB (ELIQUIS) PO SCH (09:24)
[2018-11-23] MEDS: GLIMEPIRIDE 2 MG TAB PO SCH (09:24)
[2018-11-23] MEDS ORDERED: MACR100C43 PO (10:57)
[2018-11-23] MEDS ORDERED: INSUDET SC (10:57)
[2018-11-23] MEDS ORDERED: FURO40TA2 PO (10:57)
[2018-11-23] MEDS ORDERED: KLOR10TA76 PO (10:58)
--- NOTE | 2018-11-23 14:18 | DSES ---
DATE OF ADMISSION: 11/21/2018 DATE OF DISCHARGE: 11/23/2018 BRIEF HISTORY AND PHYSICAL: The patient is a 68-year-old patient of Dr. Levine's recently hospitalized for pneumonia and the flu who presented with progressively worsening generalized weakness. Past medical history is significant diabetes, hypertension, hyperlipidemia, coronary artery disease status post PA and three stent placement, atrial fibrillation, chronic diastolic heart failure with ejection fraction 40%. Pertinent labs on admission: white count 10, hemoglobin 10.4, platelets 198,000. Sodium 129, potassium 3.4, BUN 20, creatinine 1.0, glucose 262, troponin less than 0.02, TSH 2.53. HOSPITAL COURSE: The patient was admitted for: 1. Generalized weakness secondary to hyponatremia and hypokalemia from mild dehydration with some associated borderline hypotension. She was given IV fluids replacement and her Lasix was held. Potassium was replaced orally. Her sodium and potassium normalized and she is felt safe for discharge home per physical therapy. She will have home health aide and some criminal justice social worker to assure her safety in the home. I will restart a lower dose of Lasix tomorrow, 11/24/2018, rather than 60 mg a day she has been prescribed 40 mg daily and potassium 20 mEq twice a day. I advised her that if she starts to feel weak again she should contact Dr. Levine and hold her Lasix. She may need her electrolytes followed closely as an outpatient to determine appropriate amount of diuretic to keep her euvolemic. 2. Diabetes mellitus type 2. Prior to her last admission, she was on Levemir 25 units daily and Amaryl, her hemoglobin A1c was 10.1. She was sent home on 25 units twice a day. She has since adjusted her diet quite a bit. Here in the hospital she had some hypoglycemia with the Levemir so her dose at this point is adjusted. I am sending her home on 35 units once a day instead of the 25 twice a day and she will monitor her blood sugars twice a day and bring them with her to Dr. Levine's office so he can further adjust her Levemir and she will at this point remain on the Amaryl 4 mg twice a day as prior to admission. 3. Atrial fibrillation. Rate has been stable and she remains on her usual Eliquis without any signs of bleeding. She has some chronic anemia which has been stable for her. 4. She did have a urinary tract infection with greater than 100,000 Klebsiella. She has multiple allergies. She has been started on nitrofurantoin 100 mg twice a day for a 7-day course. DISPOSITION: She is stable for discharge home to followup with Dr. Levine next week. Diet: consistent carbohydrate. MEDICATIONS: - furosemide 40 mg daily, this is a decrease from the 60 mg daily prior to admission - Levemir 35 units daily, this is a decrease from the 25 units twice a day she was taking prior to admission - nitrofurantoin 100 mg twice a day - Eliquis 5 mg twice a day - fluticasone two sprays per nostril daily - glimepiride 4 mg twice a day - levothyroxine 100 mcg daily - meclizine 12.5 mg three times a day as needed for dizziness - potassium 20 mEq twice a day and those pills were refilled - Crestor 20 mg every other day DISCHARGE DIAGNOSES: 1. Generalized weakness secondary to hyponatremia, hypokalemia, dehydration. 2. Hyponatremia. 3. Hypokalemia. 4. Diabetes mellitus type 2. 5. Atrial fibrillation. 6. Urinary tract infection second dairy to Klebsiella.
== END 2018-11-23 12:49 | disposition home or self-care (01) ==
LOC: M ED 10:07 → EDBD 10:07 → M MSPAV 17:43
PROVIDERS: ADMIT Internal Medicine; ATTEND Family Medicine
DX: R53.1 Weakness (principal); E87.1 Hypo-osmolality and hyponatremia; E87.6 Hypokalemia; E86.0 Dehydration; I95.9 Hypotension, unspecified; E11.9 Type 2 diabetes mellitus without complications; I48.91 Unspecified atrial fibrillation; N39.0 Urinary tract infection, site not specified; B96.1 Klebsiella pneumoniae [K. pneumoniae] as the cause of diseases classified elsewhere; Z79.899 Other long term (current) drug therapy; E78.5 Hyperlipidemia, unspecified; I25.10 Atherosclerotic heart disease of native coronary artery without angina pectoris; I25.2 Old myocardial infarction; Z98.61 Coronary angioplasty status; E03.9 Hypothyroidism, unspecified; I50.32 Chronic diastolic (congestive) heart failure; Z86.73 Personal history of transient ischemic attack (TIA), and cerebral infarction without residual deficits; Z88.0 Allergy status to penicillin; Z88.2 Allergy status to sulfonamides; Z88.8 Allergy status to other drugs, medicaments and biological substances
CPT/HCPCS: 36415; 70450; 71045; 72131; 80048; 80053; 80076; 81001; 82140; 82550; 82553; 82803; 83605; 83735; 83930; 84443; 84484; 85025; 87040; 87088; 87186; 93005; 93041; 96361; 96374; 97116; 97161; 97530; 99285; G0378

== ENCOUNTER → 2018-11-30 | Outpatient (REF) | payer MEDICARE ==
[~2018-11-30] MED LIST changes: +FURO20TA2 PO
== END ==
LOC: M SFHCCLAY 10:40
PROVIDERS: ATTEND Family Medicine
DX: N30.00 Acute cystitis without hematuria (principal)

== ENCOUNTER → 2018-12-12 | Outpatient (REF) | payer MEDICARE ==
[2018-12-12 17:15] LABS: BLOOD UREA NITROGEN 26 MG/DL (7-18); CALCIUM LEVEL 8.7 MG/DL (8.8-10.2); CARBON DIOXIDE LEVEL 27 MEQ/L (21-32); CHLORIDE LEVEL 103 MEQ/L (98-107); GLOMERULAR FILTRATION RATE > 60.0 (>45); GLUCOSE, FASTING 157 MG/DL (70-100); POTASSIUM SERUM 4.5 MEQ/L (3.5-5.1); SODIUM LEVEL 138 MEQ/L (136-145)
== END ==
LOC: M SFHCCLAY 12:13
PROVIDERS: ATTEND Family Medicine
DX: E11.9 Type 2 diabetes mellitus without complications (principal)

== ENCOUNTER → 2018-12-17 | Outpatient (CLI) | payer MEDICARE ==
--- NOTE | 2018-12-17 13:01 | REP ---
Chest two views HISTORY: Shortness of breath Comparison: 11/21/2018 An increase in interstitial markings is present in the lungs consistent with chronic interstitial fibrosis. The cardiac silhouette is enlarged. The pulmonary vasculature is normal in appearance. The bony structure is intact. A cardiac pacemaker is present. IMPRESSION: No acute disease. Electronically Signed by Ted Verde MD 12/17/2018 12:52 P
[2018-12-17 19:24] LABS: BASO % 0.4 % (0.0-1.0); HEMATOCRIT 31.5 % (36.0-47.0); HEMOGLOBIN 10.2 g/dl (12.0-15.5); LYMPH # 0.8 10^3/uL (1.5-4.5); LYMPH % 16.6 % (24.0-44.0); MEAN CORPUSCULAR HGB CONC 32.4 g/dl (32.0-36.5); MEAN CORPUSCULAR VOLUME 89.5 fl (80.0-96.0); MONO # 0.5 10^3/uL (0.0-0.8); MONO % 10.4 % (0.0-5.0); NEUTROPHILS # 3.3 10^3/uL (1.8-7.7); NEUTROPHILS % 72.4 % (36.0-66.0); PLATELET COUNT, AUTOMATED 195 10^3/uL (150-450); RED BLOOD COUNT 3.52 10^6/uL (4.00-5.40); WHITE BLOOD COUNT 4.5 10^3/uL (4.0-10.0)
[2018-12-17 19:30] LABS: ALBUMIN 3.1 GM/DL (3.2-5.2); BILIRUBIN,TOTAL 0.4 MG/DL (0.2-1.0); CALCIUM LEVEL 8.3 MG/DL (8.8-10.2); CREATININE FOR GFR 1.03 MG/DL (0.55-1.30); GLOMERULAR FILTRATION RATE 57.1 (>45); POTASSIUM SERUM 4.6 MEQ/L (3.5-5.1)
== END ==
LOC: M WUC 12:35
PROVIDERS: ATTEND Physician Assistant
DX: R53.1 Weakness (principal); J20.9 Acute bronchitis, unspecified; J84.10 Pulmonary fibrosis, unspecified; Z95.0 Presence of cardiac pacemaker

== ENCOUNTER → 2019-01-03 | Outpatient (REF) | payer MEDICARE ==
[2019-01-03 19:13] LABS: BLOOD UREA NITROGEN 25 MG/DL (7-18); CALCIUM LEVEL 8.6 MG/DL (8.8-10.2); CARBON DIOXIDE LEVEL 27 MEQ/L (21-32); CHLORIDE LEVEL 104 MEQ/L (98-107); CREATININE FOR GFR 0.97 MG/DL (0.55-1.30); GLOMERULAR FILTRATION RATE > 60.0 (>45); GLUCOSE, FASTING 207 MG/DL (70-100); MAGNESIUM LEVEL 1.9 MG/DL (1.8-2.4); NT-PRO BNP 1025 PG/ML (<125); PHOSPHORUS LEVEL 3.8 MG/DL (2.5-4.9); POTASSIUM SERUM 4.3 MEQ/L (3.5-5.1); SODIUM LEVEL 136 MEQ/L (136-145)
[2019-01-03 19:19] LABS: HEMATOCRIT 32.4 % (36.0-47.0); HEMOGLOBIN 10.5 g/dl (12.0-15.5); MEAN CORPUSCULAR HEMOGLOBIN 28.5 pg (27.0-33.0); MEAN CORPUSCULAR HGB CONC 32.4 g/dl (32.0-36.5); MEAN CORPUSCULAR VOLUME 87.8 fl (80.0-96.0); PLATELET COUNT, AUTOMATED 281 10^3/uL (150-450); RED BLOOD COUNT 3.69 10^6/uL (4.00-5.40); WHITE BLOOD COUNT 8.1 10^3/uL (4.0-10.0)
== END ==
LOC: M LABDRAWC 17:16
PROVIDERS: ATTEND Internal Medicine Cardiovascular Disease
DX: I50.32 Chronic diastolic (congestive) heart failure (principal); I48.0 Paroxysmal atrial fibrillation

== ENCOUNTER → 2019-03-08 | Outpatient (REF) | payer MEDICARE ==
[2019-03-08 17:40] LABS: CREATININE FOR GFR 1.06 MG/DL (0.55-1.30); FREE T4 1.45 NG/DL (0.76-1.46); GLOMERULAR FILTRATION RATE 55.2 (>45); POTASSIUM SERUM 4.5 MEQ/L (3.5-5.1); THYROID STIMULATING HORMONE 1.33 uIU/ML (0.358-3.740)
[2019-03-10 14:07] LABS: ANTINUCLEAR ANTIBODIES DIRECT Negative (Negative)
== END ==
LOC: M SFHCCLAY 12:13
PROVIDERS: ATTEND Family Medicine
DX: L65.9 Nonscarring hair loss, unspecified (principal); E11.9 Type 2 diabetes mellitus without complications

== ENCOUNTER 2019-03-29 05:46 | Day surgery (SDC) | payer MEDICARE ==
[~2019-03-29] VITALS: Ht 152.4 cm; Wt 93.0 kg
[~2019-03-29 05:46] MED LIST changes: -GLIM4TAB PO; +GLIM4TAB5 PO; -MECL-68 PO; -MECL12.575 PO; +MECL12.589 PO; +MECL1TAB31 PO; +OMEP40CA97 PO
[2019-03-29] MEDS ORDERED: PERCOCET 5MG/325MG TAB PO ONE (06:00)
[2019-03-29] MEDS ORDERED: LR 1,000 ML IV ONE (06:00)
[2019-03-29] MEDS ORDERED: LIDOCAINE 1% MDV 20ML VIAL SQ PRN (06:00)
[2019-03-29] MEDS ORDERED: BUPIVACAINE/EPIN 0.25% 30 ML VIAL As Ordered ONE ×2 (06:53→07:48)
[2019-03-29] MEDS ORDERED: propofoL 200 MG/20 ML VIAL As Ordered ONE (07:46)
[2019-03-29] MEDS ORDERED: fentaNYL 100 MCG/2 ML INJECTION (J3010) As Ordered ONE (07:46)
[2019-03-29] MEDS ORDERED: MIDAZOLAM INJ 2 MG/2 ML VIAL (J2250) As Ordered ONE (07:46)
[2019-03-29] MEDS ORDERED: LIDOCAINE 2% INJ 100 MG/5 ML SDV (FOR ANES.) As Ordered ONE (07:46)
[2019-03-29] MEDS ORDERED: KETOROLAC 60 MG/2 ML VIAL (J1885) As Ordered ONE (07:56)
[2019-03-29] MEDS ORDERED: SEVOFLURANE INHAL SOLN 250 ML BTL As Ordered ONE (08:09)
[2019-03-29] MEDS ORDERED: PHENYLephrine HCL 500 MCG/5 ML (100MCG/ML) SYRINGE (J2370) As Ordered ONE (08:10)
[2019-03-29] MEDS ORDERED: ACETAMINOPHEN 1000MG 100ML IV BTL (OFIRMEV) (J0131 PER 10MG) As Ordered ONE (08:11)
[2019-03-29] MEDS ORDERED: PERCOCET 5MG/325MG TAB PO PRN ×2 (09:00)
[2019-03-29] MEDS ORDERED: LR 1,000 ML IV SCH ×2 (09:00)
[2019-03-29] MEDS ORDERED: METAMUCIL (PSYLLIUM) PACKET PO ONE (09:00)
[2019-03-29] MEDS ORDERED: ONDANSETRON 4MG/2ML VIAL (J2405) IV PRN (09:00)
[2019-03-29 09:20] VITALS: BP 133/64
--- NOTE | 2019-04-10 11:52 | RO ---
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 PROCEDURES PERFORMED: Left ulnar nerve decompression at the elbow and left open carpal tunnel release across the wrist. SURGEON: Rodney Francis MD TELEVISION ANALYZER: RICARDO Roque Estimated blood loss was less than 20 mL, replaced with crystalloid. No complications. INDICATIONS: Left upper extremity paresthesias. Electrodiagnostic studies suggest the above diagnoses. The patient has elected for operative intervention. Consent reviewed in detail, including a chadd discussion of the pathology involved, the procedures proposed, alternatives including doing nothing and potential risks including but not limited to pain, failure, infection, bleeding, blood loss, need for more surgery, incomplete relief of symptoms or failure. The patient wants to proceed. OPERATIVE COURSE: Identified in the holding area. Site side verified. Brought to the operating room. Once anesthesia was administered, she was sterilely prepped and draped in the usual fashion for exposure of the left upper extremity. Next, I utilized 3.5 loupe magnification. Next, the medial epicondyle incision was outlined with a marking pen, infiltrated with 4 mL of 0.25% Marcaine with epinephrine. Next, the carpal tunnel incision was outlined with a marking pen based on the fourth ray, approximately 2 cm long, infiltrated with 0.25% Marcaine with epinephrine. Next. we began at the elbow. Incision was made with a #10 blade knife, developed down through skin and subcuticular tissues. Blunt dissection was utilized to develop the dissection to the medial epicondyle. Small cutaneous nerves were preserved. Mcgregor's fascia was encountered. Mcgregor's fascia was sharply divided under direct visualization using a #15 blade knife and an Iris scissor. Bipolar cautery was also utilized for hemostasis. The dissection continued approximately 3 cm proximal to the medial epicondyle effectively decompressing that portion of the nerve was well as distally splitting the fascia of flexor muscle group as the nerve past deep. Next, the nerve was bluntly mobilized. The elbow was placed through a range of motion. The nerve was appreciated to be tension-free and stable posterior to the medial epicondyle. Irrigation was accomplished. The wound was closed with interrupted as well as running Monocryl stitch. Steri-Strip applied. Dressing applied. Next, carpal tunnel on the left side incision was made with a #15 blade, developed down through skin and subcuticular tissues to the palmaris fascia. The palmaris fascia was directly visualized and divided using the #15 blade. Once this was accomplished, I encountered the transverse carpal ligament under direct visualization. This was divided using the #15 blade knife slightly to the ulnar side of the carpal tunnel. The contents of the carpal tunnel were directly observed. The release was continued proximally and distally under direct visualization and the release was verified using a blunt probe. Next, irrigation was accomplished. The nerve was directly visualized and appreciated to be in continuity and slightly injected. The wound was closed with interrupted nylon stitch. Sterile dressing was applied. Once this was accomplished, the patient was extubated, moved to recovery in good condition. For further details, please refer to medical record.
== END 2019-03-29 10:14 | disposition home or self-care (01) ==
LOC: M SDC 05:46
PROVIDERS: ATTEND Orthopaedic Surgery
DX: G56.22 Lesion of ulnar nerve, left upper limb (principal); G56.02 Carpal tunnel syndrome, left upper limb; E03.9 Hypothyroidism, unspecified; I11.0 Hypertensive heart disease with heart failure; F32.9 Major depressive disorder, single episode, unspecified; F41.9 Anxiety disorder, unspecified; I25.10 Atherosclerotic heart disease of native coronary artery without angina pectoris; I48.91 Unspecified atrial fibrillation; I25.2 Old myocardial infarction; E78.00 Pure hypercholesterolemia, unspecified; D64.9 Anemia, unspecified; I73.9 Peripheral vascular disease, unspecified; E10.9 Type 1 diabetes mellitus without complications; K57.32 Diverticulitis of large intestine without perforation or abscess without bleeding; K21.9 Gastro-esophageal reflux disease without esophagitis; R29.898 Other symptoms and signs involving the musculoskeletal system; M12.9 Arthropathy, unspecified; M81.0 Age-related osteoporosis without current pathological fracture; L85.3 Xerosis cutis; G47.33 Obstructive sleep apnea (adult) (pediatric); R06.83 Snoring; R51 Headache; Z95.0 Presence of cardiac pacemaker; Z88.0 Allergy status to penicillin; Z88.1 Allergy status to other antibiotic agents; Z88.2 Allergy status to sulfonamides; Z88.8 Allergy status to other drugs, medicaments and biological substances; Z79.899 Other long term (current) drug therapy; Z95.5 Presence of coronary angioplasty implant and graft; Z86.718 Personal history of other venous thrombosis and embolism; Z79.01 Long term (current) use of anticoagulants; Z86.73 Personal history of transient ischemic attack (TIA), and cerebral infarction without residual deficits; Z87.820 Personal history of traumatic brain injury
CPT/HCPCS: 64718; 64721; J0131; J1885; J2250; J2370; J3010

== ENCOUNTER → 2019-05-01 | Outpatient (CLI) | payer MEDICARE ==
[~2019-05-01] MED LIST changes: +GLIM4TAB PO; -GLIM4TAB5 PO; +MECL-68 PO; +MECL12.575 PO; -MECL12.589 PO; -MECL1TAB31 PO; -OMEP40CA97 PO
[2019-05-01 12:47] LABS: BASO # 0.1 10^3/uL (0.0-0.2); EOS # 0.2 10^3/uL (0.0-0.5); EOS % 2.7 % (0.0-3.0); HEMATOCRIT 34.3 % (36.0-47.0); HEMOGLOBIN 11.2 g/dl (12.0-15.5); LYMPH # 1.9 10^3/uL (1.5-5.0); LYMPH % 30.1 % (24.0-44.0); MEAN CORPUSCULAR HEMOGLOBIN 28.6 pg (27.0-33.0); MEAN CORPUSCULAR HGB CONC 32.7 g/dl (32.0-36.5); MEAN CORPUSCULAR VOLUME 87.7 fl (80.0-96.0); MONO # 0.6 10^3/uL (0.0-0.8); NEUTROPHILS # 3.5 10^3/uL (1.5-8.5); NEUTROPHILS % 54.6 % (36.0-66.0); PLATELET COUNT, AUTOMATED 243 10^3/uL (150-450); RED BLOOD COUNT 3.91 10^6/uL (4.00-5.40); WHITE BLOOD COUNT 6.4 10^3/uL (4.0-10.0)
[2019-05-01 13:14] LABS: ALBUMIN 3.6 GM/DL (3.2-5.2); ALT/SGPT 18 U/L (12-78); BILIRUBIN,TOTAL 0.4 MG/DL (0.2-1.0); BLOOD UREA NITROGEN 32 MG/DL (7-18); CARBON DIOXIDE LEVEL 24 MEQ/L (21-32); CHLORIDE LEVEL 103 MEQ/L (98-107); CREATININE FOR GFR 0.87 MG/DL (0.55-1.30); GLOMERULAR FILTRATION RATE > 60.0 (>45); GLUCOSE, FASTING 156 MG/DL (70-100); NT-PRO BNP 514 PG/ML (<125); POTASSIUM SERUM 4.5 MEQ/L (3.5-5.1); SODIUM LEVEL 138 MEQ/L (136-145)
== END ==
LOC: M WUC 10:30
PROVIDERS: ATTEND Internal Medicine Cardiovascular Disease
DX: J41.0 Simple chronic bronchitis (principal); I50.32 Chronic diastolic (congestive) heart failure; I11.0 Hypertensive heart disease with heart failure; I25.10 Atherosclerotic heart disease of native coronary artery without angina pectoris; I48.0 Paroxysmal atrial fibrillation

== ENCOUNTER 2019-07-23 14:54 | Emergency (ER) | payer MEDICARE ==
[~2019-07-23] VITALS: Ht 154.9 cm; Wt 93.2 kg
[~2019-07-23 14:54] MED LIST changes: -GLIM4TAB PO; +GLIM4TAB3 PO; +OMEP40CA97 PO
[2019-07-23] MEDS ORDERED: LISI-542 (15:18)
[2019-07-23] MEDS ORDERED: ISOVUE-370 76% 100ML VIAL (Q9967) As Ordered ONE (15:35)
[2019-07-23 15:45] LABS: BASO # 0.2 10^3/uL (0.0-0.2); BASO % 1.6 % (0.0-1.0); EOS # 0.1 10^3/uL (0.0-0.5); LYMPH # 2.1 10^3/uL (1.5-5.0); LYMPH % 22.9 % (24.0-44.0); MEAN CORPUSCULAR HEMOGLOBIN 29.4 pg (27.0-33.0); MEAN CORPUSCULAR HGB CONC 33.3 g/dl (32.0-36.5); MEAN CORPUSCULAR VOLUME 88.2 fl (80.0-96.0); MONO # 0.6 10^3/uL (0.0-0.8); MONO % 6.9 % (0.0-5.0); NEUTROPHILS # 6.2 10^3/uL (1.5-8.5); NEUTROPHILS % 66.7 % (36.0-66.0); PLATELET COUNT, AUTOMATED 254 10^3/uL (150-450); RED BLOOD COUNT 4.42 10^6/uL (4.00-5.40); WHITE BLOOD COUNT 9.3 10^3/uL (4.0-10.0)
[2019-07-23] MEDS ORDERED: GI COCKTAIL 50ML BTL(HYOSCYAMINE/MAALOX/LIDOCAINE VISCOUS)(1:3:1) PO ONE (15:45)
--- NOTE | 2019-07-23 15:50 | REP ---
Clinical: Chest pain . Comparison: 12/17/2018 . Findings: The mediastinum and cardiac silhouette are stable. Cardiomegaly and dual lead pacemaker again noted. The lung rodriguez are clear without acute consolidation, effusion, or pneumothorax. Skeletal structures are intact. Impression: Chronic stable changes. No acute cardiopulmonary process appreciated. Electronically Signed by Jesu Guardado MD 07/23/2019 03:42 P
[2019-07-23 15:57] LABS: INR 1.24; PARTIAL THROMBOPLASTIN TIME 27.8 SECONDS (25.0-38.4); PROTHROMBIN TIME 15.3 SECONDS (11.8-14.0)
[2019-07-23 16:32] LABS: ALBUMIN 3.3 GM/DL (3.2-5.2); ALT/SGPT 21 U/L (12-78); BILIRUBIN,DIRECT 0.1 MG/DL (0.0-0.2); BILIRUBIN,TOTAL 0.4 MG/DL (0.2-1.0); BLOOD UREA NITROGEN 28 MG/DL (7-18); C REACTIVE PROTEIN QUANTITATIV 0.36 MG/DL (0.00-0.30); CALCIUM LEVEL 8.7 MG/DL (8.8-10.2); CARBON DIOXIDE LEVEL 27 MEQ/L (21-32); CHLORIDE LEVEL 104 MEQ/L (98-107); CK-MB VALUE MASS 1.7 NG/ML (<3.6); CPK CREATINE PHOSPHOKINASE 39 U/L (26-192); CREATININE FOR GFR 0.98 MG/DL (0.55-1.30); GLOMERULAR FILTRATION RATE > 60.0 (>45); GLUCOSE, FASTING 269 MG/DL (70-100); LIPASE 117 U/L (73-393); MB/CK RELATIVE INDEX 4.36 (< OR =4); NT-PRO BNP 1539 PG/ML (<125); POTASSIUM SERUM 4.3 MEQ/L (3.5-5.1); SODIUM LEVEL 136 MEQ/L (136-145); TOTAL PROTEIN 6.9 GM/DL (6.4-8.2); TROPONIN I 0.02 NG/ML (< 0.10)
--- NOTE | 2019-07-23 17:08 | REP ---
Clinical: Chest pain. Rule out pulmonary embolus. Technique: Axial contrast enhanced images from the thoracic inlet to the upper abdomen with coronal and sagittal re-formations using 100 ml Isovue 370 intravenous contrast material with MIP re-formations. Findings: Suboptimal enhancement of the pulmonary arterial vasculature may be secondary to technique versus underlying cardiac disease. No obvious pulmonary embolus appreciated in the right or left main pulmonary arteries. Thoracic aorta demonstrates atherosclerotic changes without aneurysm or dissection. Cardiac pacemaker noted. The bilateral lung rodriguez are relatively clear and without acute consolidation, effusion, or pneumothorax. Tracheobronchial tree is patent. No adenopathy. Musculoskeletal structures are intact. Impression: 1. Limited evaluation for pulmonary embolus. 2. Atherosclerotic changes to the thoracic aorta and coronary arteries. 3. No consolidation or effusion. Electronically Signed by Jesu Guardado MD 07/23/2019 04:58 P
[2019-07-23] MEDS ORDERED: FUROSEMIDE 20 MG/2 ML VIAL (J1940) IV ONE (18:00)
[2019-07-23] MEDS ORDERED: KETOROLAC 30 MG/ML VIAL (J1885) IV ONE (18:00)
[2019-07-23 18:17] LABS: CK-MB VALUE MASS 1.4 NG/ML (<3.6); CPK CREATINE PHOSPHOKINASE 41 U/L (26-192); MB/CK RELATIVE INDEX 3.41 (< OR =4); TROPONIN I < 0.02 NG/ML (< 0.10)
[2019-07-23 18:30] VITALS: BP 117/80
--- NOTE | 2019-07-23 18:45 | REPVR ---
PROCEDURE INFORMATION: Exam: US Duplex Left Upper Extremity Veins, Limited Exam date and time: 07/23/2019 6:17 PM Age: 68 years old Clinical history: Pain; Arm, upper; Left; Additional info: Swelling TECHNIQUE: Imaging protocol: Real-time Duplex ultrasound of the Left Upper Extremity with 2-D pitts scale, color Doppler flow and spectral waveform analysis with image documentation. Limited exam focused on the left upper extremity veins. COMPARISON: No relevant prior studies available. FINDINGS: Left deep veins: Internal jugular, subclavian, axillary and brachial veins patent without thrombus. Normal compressibility, augmentation response and/or Doppler waveforms. Left superficial veins: Visualized cephalic and basilic veins patent without thrombus. Soft tissues: Unremarkable. IMPRESSION: No sonographic evidence of deep vein thrombosis. Electronically signed by: Manolo Church On 07/23/2019 18:45:44 PM
--- NOTE | 2019-07-24 07:26 | ECGEPIP ---
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
--- NOTE | 2019-07-24 07:27 | ECGEPIP ---
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
== END 2019-07-23 19:08 | disposition home or self-care (01) ==
LOC: M ED 14:54 → EDBD 14:54 → M ED 19:08
DX: R07.89 Other chest pain (principal); Z95.0 Presence of cardiac pacemaker; R94.31 Abnormal electrocardiogram [ECG] [EKG]; I48.91 Unspecified atrial fibrillation; I25.10 Atherosclerotic heart disease of native coronary artery without angina pectoris; I50.9 Heart failure, unspecified; E11.9 Type 2 diabetes mellitus without complications; I10 Essential (primary) hypertension; E78.00 Pure hypercholesterolemia, unspecified; Z86.73 Personal history of transient ischemic attack (TIA), and cerebral infarction without residual deficits; G47.30 Sleep apnea, unspecified; Z79.82 Long term (current) use of aspirin; Z79.84 Long term (current) use of oral hypoglycemic drugs; Z79.899 Other long term (current) drug therapy; Z88.0 Allergy status to penicillin; Z88.2 Allergy status to sulfonamides; Z88.1 Allergy status to other antibiotic agents; Z88.5 Allergy status to narcotic agent; Z88.8 Allergy status to other drugs, medicaments and biological substances
CPT/HCPCS: 71045; 71275; 80048; 80076; 82550; 82553; 83690; 83880; 84443; 84484; 85025; 85610; 85730; 86140; 93005; 93041; 93971; 94760; 96374; 99285; J1885; Q9967

== ENCOUNTER → 2019-07-28 | Outpatient (REF) | payer MEDICARE ==
[~2019-07-28] MED LIST changes: +LISI-542
[2019-07-28 16:52] LABS: CHOLESTEROL RISK RATIO 5.28 (<5); FREE T4 1.67 NG/DL (0.76-1.46); THYROID STIMULATING HORMONE 1.55 uIU/ML (0.358-3.740)
[2019-07-28 16:57] LABS: HEMOGLOBIN A1c 10.8 %
== END ==
LOC: M SFHCCLAY 11:28
PROVIDERS: ATTEND Family Medicine
DX: E11.9 Type 2 diabetes mellitus without complications (principal); M79.10 Myalgia, unspecified site; E03.9 Hypothyroidism, unspecified; E78.5 Hyperlipidemia, unspecified; N30.00 Acute cystitis without hematuria

== ENCOUNTER → 2019-08-03 | Outpatient (REF) | payer MEDICARE | LOC: M LAB REF 19:07 | PROVIDERS: ATTEND Dermatology | DX: D17.30 Benign lipomatous neoplasm of skin and subcutaneous tissue of unspecified sites (principal); D22.71 Melanocytic nevi of right lower limb, including hip ==

== ENCOUNTER → 2019-08-05 | Outpatient (CLI) | payer MEDICARE ==
[2019-08-05 13:36] LABS: HEMATOCRIT 36.5 % (36.0-47.0); HEMOGLOBIN 11.6 g/dl (12.0-15.5); MEAN CORPUSCULAR HEMOGLOBIN 28.8 pg (27.0-33.0); MEAN CORPUSCULAR HGB CONC 31.8 g/dl (32.0-36.5); MEAN CORPUSCULAR VOLUME 90.6 fl (80.0-96.0); PLATELET COUNT, AUTOMATED 224 10^3/uL (150-450); RED BLOOD COUNT 4.03 10^6/uL (4.00-5.40); WHITE BLOOD COUNT 5.3 10^3/uL (4.0-10.0)
[2019-08-05 13:56] LABS: ALBUMIN 3.1 GM/DL (3.2-5.2); ALT/SGPT 16 U/L (12-78); BILIRUBIN,TOTAL 0.7 MG/DL (0.2-1.0); BLOOD UREA NITROGEN 22 MG/DL (7-18); CARBON DIOXIDE LEVEL 24 MEQ/L (21-32); CHLORIDE LEVEL 102 MEQ/L (98-107); CREATININE FOR GFR 0.82 MG/DL (0.55-1.30); GLOMERULAR FILTRATION RATE > 60.0 (>45); GLUCOSE, FASTING 240 MG/DL (70-100); NT-PRO BNP 1331 PG/ML (<125); POTASSIUM SERUM 5.1 MEQ/L (3.5-5.1); SODIUM LEVEL 137 MEQ/L (136-145); TOTAL PROTEIN 6.6 GM/DL (6.4-8.2)
== END ==
LOC: M WUC 10:08
PROVIDERS: ATTEND Internal Medicine Cardiovascular Disease
DX: I50.32 Chronic diastolic (congestive) heart failure (principal)

== ENCOUNTER → 2019-08-05 | Outpatient (CLI) | payer MEDICARE ==
[2019-08-05 13:31] LABS: URINE TOTAL PROTEIN 14.5 MG/DL (0-12)
[2019-08-05 13:34] LABS: C REACTIVE PROTEIN QUANTITATIV 0.93 MG/DL (0.00-0.30); TOTAL PROTEIN 6.6 GM/DL (6.4-8.2)
[2019-08-08 11:56] LABS: ALBUMIN 3.64 GM/DL (3.29-5.55); ALBUMIN % 55.2 % (55.8-66.1); ALPHA-1-GLOBULIN % 4.5 % (2.9-4.9); ALPHA-2-GLOBULINS 0.99 GM/DL (0.42-0.99); BETA-1-GLOBULINS 0.42 GM/DL (0.28-0.60); BETA-1-GLOBULINS % 6.4 % (4.7-7.2); BETA-2-GLOBULINS 0.43 GM/DL (0.19-0.55); BETA-2-GLOBULINS % 6.5 % (3.2-6.5); GAMMA GLOBULIN % 12.4 % (11.1-18.8); GAMMA GLOBULINS 0.82 GM/DL (0.65-1.58)
== END ==
LOC: M WUC 10:04
PROVIDERS: ATTEND Dermatology
DX: R21 Rash and other nonspecific skin eruption (principal)

== ENCOUNTER → 2019-08-18 | Outpatient (REF) | payer MEDICARE ==
[2019-08-18 17:08] LABS: C REACTIVE PROTEIN QUANTITATIV 1.72 MG/DL (0.00-0.30); RHEUMATOID FACTOR QUANT < 10.0 IU/ML (<15.0)
[2019-08-21 14:06] LABS: ANTINUCLEAR ANTIBODIES DIRECT Negative (Negative)
== END ==
LOC: M SFHCCLAY 14:39
PROVIDERS: ATTEND Family Medicine
DX: R07.2 Precordial pain (principal); R30.0 Dysuria

== ENCOUNTER → 2020-02-14 | Outpatient (REF) | payer MEDICARE ==
[~2020-02-14] MED LIST changes: -AMIO200T PO; +AMIO200T3 PO; -GLIM4TAB3 PO; +GLIM4TAB5 PO; -LISI-542; -LISI-542 PO; +LISI-898; +LISI-898 PO; -MAPA325T2 PO; +MAPA325T8 PO; -MECL-68 PO; -MECL12.575 PO; +MECL12.590 PO; +MECL1TAB31 PO; +ONDA4INJ4 IV; -ONDA4INJ48 IV
== END ==
LOC: M SFHCCLAY 12:27
PROVIDERS: ATTEND Family Medicine
DX: R30.0 Dysuria (principal)

== ENCOUNTER → 2020-02-21 | Outpatient (REF) | payer MEDICARE ==
[~2020-02-21] MED LIST changes: +AMIO200T PO; -AMIO200T3 PO; +LISI-542; +LISI-542 PO; -LISI-898; -LISI-898 PO; +MECL12.589 PO; -MECL12.590 PO
[2020-02-21 12:26] LABS: BASO # 0.3 10^3/uL (0.0-0.2); BASO % 3.8 % (0.0-1.0); EOS # 0.2 10^3/uL (0.0-0.5); EOS % 2.6 % (0.0-3.0); HEMATOCRIT 37.2 % (36.0-47.0); HEMOGLOBIN 12.2 g/dl (12.0-15.5); LYMPH # 1.6 10^3/uL (1.5-5.0); LYMPH % 24.4 % (24.0-44.0); MEAN CORPUSCULAR HEMOGLOBIN 28.7 pg (27.0-33.0); MEAN CORPUSCULAR HGB CONC 32.8 g/dl (32.0-36.5); MEAN CORPUSCULAR VOLUME 87.5 fl (80.0-96.0); MONO # 0.6 10^3/uL (0.0-0.8); MONO % 8.9 % (0.0-5.0); NEUTROPHILS # 3.9 10^3/uL (1.5-8.5); NEUTROPHILS % 59.5 % (36.0-66.0); PLATELET COUNT, AUTOMATED 250 10^3/uL (150-450); RED BLOOD COUNT 4.25 10^6/uL (4.00-5.40); WHITE BLOOD COUNT 6.5 10^3/uL (4.0-10.0)
[2020-02-21 12:57] LABS: ALBUMIN 3.5 GM/DL (3.2-5.2); ALT/SGPT 20 U/L (12-78); BILIRUBIN,TOTAL 0.6 MG/DL (0.2-1.0); BLOOD UREA NITROGEN 31 MG/DL (7-18); CALCIUM LEVEL 9.3 MG/DL (8.8-10.2); CARBON DIOXIDE LEVEL 29 MEQ/L (21-32); CHLORIDE LEVEL 101 MEQ/L (98-107); CREATININE FOR GFR 0.96 MG/DL (0.55-1.30); GLOMERULAR FILTRATION RATE > 60.0 (>45); GLUCOSE, FASTING 286 MG/DL (70-100); NT-PRO BNP 766 PG/ML (<125); POTASSIUM SERUM 3.7 MEQ/L (3.5-5.1); SODIUM LEVEL 135 MEQ/L (136-145); THYROID STIMULATING HORMONE 0.841 uIU/ML (0.358-3.740); TOTAL PROTEIN 7.2 GM/DL (6.4-8.2)
== END ==
LOC: M LABDRAWC 11:14
PROVIDERS: ATTEND Internal Medicine Cardiovascular Disease
DX: I50.32 Chronic diastolic (congestive) heart failure (principal); I48.0 Paroxysmal atrial fibrillation; I11.0 Hypertensive heart disease with heart failure; E03.9 Hypothyroidism, unspecified; E09.22 Drug or chemical induced diabetes mellitus with diabetic chronic kidney disease

== ENCOUNTER → 2020-03-07 | Outpatient (CLI) | payer MEDICARE ==
[~2020-03-07] MED LIST changes: -AMIO200T PO; +AMIO200T3 PO
--- NOTE | 2020-03-07 12:39 | REPPI ---
REASON: Atraumatic pain bilateral hand. PRIORS: None. LEFT HAND: There is severe asymmetric intradigital joint space narrowing with prominent marginal osteophytosis affecting the DIP joints of digits 2 and 3. Prominent marginal osteophytosis is seen involving the proximal interphalangeal joint of digit 3. There is no chadd periarticular osteopenia and there are no marginal erosions. More mild-appearing chronic changes are seen involving the interphalangeal joint of the 1st digit. There is no acute fracture. RIGHT HAND: Four views of the right hand show advanced asymmetric intradigital joint space narrowing and prominent marginal osteophytosis involving digits 2,3, and 4 with more moderate to severe asymmetric intradigital joint space narrowing and more mild marginal osteophytosis involving the proximal interphalangeal joints of digits 2, 3, and 4 as well as the interphalangeal joint of digit 1. There is no acute fracture. There is no chadd periarticular osteopenia. There are no chadd marginal erosions. IMPRESSION: Bilateral degenerative changes as described above. Electronically Signed by Servando Bear DO 03/07/2020 02:20 P
--- NOTE | 2020-03-07 13:38 | REPPI ---
BILATERAL ELBOW SERIES: Four views of bilateral elbows performed. There is no acute fracture or dislocation bilaterally. On the left, there is moderate narrowing of the radiocapitellar joint with mild subchondral sclerosis and cystic change in the head of the radius. There is no intrinsic osseous pathology. There is no significant joint effusion identified. On the right, there is similarly moderate narrowing of the radiocapitellar joint with mild subchondral sclerosis and cystic changes in the head of the radius. No intrinsic osseous pathology is seen and there is no definite joint effusion. IMPRESSION: Moderate bilateral degenerative changes radiocapitellar joint. Electronically Signed by Bryant Ott MD 03/10/2020 11:38 P
== END ==
LOC: M PLAIMG 11:04
PROVIDERS: ATTEND Internal Medicine Rheumatology
DX: M19.021 Primary osteoarthritis, right elbow (principal); M19.022 Primary osteoarthritis, left elbow; M19.041 Primary osteoarthritis, right hand; M19.042 Primary osteoarthritis, left hand; M25.50 Pain in unspecified joint
CPT/HCPCS: 36415; 73080; 73130; 86140; 86200; G0463

== ENCOUNTER → 2020-03-14 | Outpatient (REF) | payer MEDICARE | LOC: M LABDRAWC 11:20 | PROVIDERS: ATTEND Internal Medicine Cardiovascular Disease | DX: I50.32 Chronic diastolic (congestive) heart failure (principal) ==

== ENCOUNTER → 2020-04-19 | Outpatient (REF) | payer MEDICARE ==
[2020-04-19 16:23] LABS: ALBUMIN 3.3 GM/DL (3.2-5.2); BLOOD UREA NITROGEN 24 MG/DL (7-18); CALCIUM LEVEL 8.8 MG/DL (8.8-10.2); CARBON DIOXIDE LEVEL 31 MEQ/L (21-32); CHLORIDE LEVEL 103 MEQ/L (98-107); CREATININE FOR GFR 0.86 MG/DL (0.55-1.30); GLOMERULAR FILTRATION RATE > 60.0 (>45); GLUCOSE, FASTING 121 MG/DL (70-100); MAGNESIUM LEVEL 2.1 MG/DL (1.8-2.4); NT-PRO BNP 891 PG/ML (<125); PHOSPHORUS LEVEL 3.5 MG/DL (2.5-4.9); POTASSIUM SERUM 3.2 MEQ/L (3.5-5.1); SODIUM LEVEL 140 MEQ/L (136-145)
== END ==
LOC: M LABDRAWC 08:25
PROVIDERS: ATTEND Internal Medicine Cardiovascular Disease
DX: I50.32 Chronic diastolic (congestive) heart failure (principal)

== ENCOUNTER → 2020-05-16 | Outpatient (REF) | payer MEDICARE ==
[2020-05-16 12:37] LABS: ALBUMIN 3.4 GM/DL (3.2-5.2); CALCIUM LEVEL 9.4 MG/DL (8.8-10.2); CREATININE FOR GFR 1.07 MG/DL (0.55-1.30); GLOMERULAR FILTRATION RATE 54.5 (>45); PHOSPHORUS LEVEL 3.8 MG/DL (2.5-4.9); POTASSIUM SERUM 4.3 MEQ/L (3.5-5.1)
== END ==
LOC: M LABDRAWC 11:24
PROVIDERS: ATTEND Internal Medicine Cardiovascular Disease
DX: I50.32 Chronic diastolic (congestive) heart failure (principal); Z79.01 Long term (current) use of anticoagulants

== ENCOUNTER → 2020-07-01 | Outpatient (REF) | payer MEDICARE ==
[2020-07-01 13:36] LABS: BASO # 0.5 10^3/uL (0.0-0.2); BASO % 5.2 % (0.0-1.0); EOS # 0.3 10^3/uL (0.0-0.5); EOS % 2.8 % (0.0-3.0); HEMATOCRIT 40.9 % (36.0-47.0); HEMOGLOBIN 13.2 g/dl (12.0-15.5); LYMPH # 2.1 10^3/uL (1.5-5.0); LYMPH % 24.1 % (24.0-44.0); MEAN CORPUSCULAR HEMOGLOBIN 28.4 pg (27.0-33.0); MEAN CORPUSCULAR HGB CONC 32.3 g/dl (32.0-36.5); MONO # 0.6 10^3/uL (0.0-0.8); NEUTROPHILS # 5.2 10^3/uL (1.5-8.5); PLATELET COUNT, AUTOMATED 237 10^3/uL (150-450); RED BLOOD COUNT 4.65 10^6/uL (4.00-5.40); WHITE BLOOD COUNT 8.9 10^3/uL (4.0-10.0)
[2020-07-01 14:55] LABS: ALBUMIN 3.7 GM/DL (3.2-5.2); ALT/SGPT 19 U/L (12-78); BILIRUBIN,TOTAL 0.6 MG/DL (0.2-1.0); BLOOD UREA NITROGEN 29 MG/DL (7-18); C REACTIVE PROTEIN QUANTITATIV 0.63 MG/DL (0.00-0.30); CALCIUM LEVEL 9.4 MG/DL (8.8-10.2); CARBON DIOXIDE LEVEL 29 MEQ/L (21-32); CHLORIDE LEVEL 99 MEQ/L (98-107); CREATININE FOR GFR 1.01 MG/DL (0.55-1.30); GLOMERULAR FILTRATION RATE 58.2 (>45); GLUCOSE, FASTING 266 MG/DL (70-100); POTASSIUM SERUM 4.4 MEQ/L (3.5-5.1); SODIUM LEVEL 135 MEQ/L (136-145); TOTAL PROTEIN 7.3 GM/DL (6.4-8.2)
[2020-07-01 15:05] LABS: HEPATITIS B SURFACE ANTIGEN NEGATIVE (NEGATIVE)
[2020-07-01 15:32] LABS: HEPATITIS C VIRUS ABY INDEX 0.1 INDEX (<0.8)
[2020-07-01 15:46] LABS: ERYTHROCYTE SEDIMENTATION RATE 34 mm/hr (0-30)
== END ==
LOC: M SFHCRHEU 11:03
PROVIDERS: ATTEND Internal Medicine
DX: M06.09 Rheumatoid arthritis without rheumatoid factor, multiple sites (principal)

== ENCOUNTER → 2020-09-03 | Outpatient (REF) | payer MEDICARE ==
[~2020-09-03] MED LIST changes: -MECL12.589 PO; +MECL12.590 PO
[2020-09-03 16:23] LABS: BASO # 0.7 10^3/uL (0.0-0.2); EOS # 0.3 10^3/uL (0.0-0.5); EOS % 2.9 % (0.0-3.0); HEMATOCRIT 40.8 % (36.0-47.0); HEMOGLOBIN 13.3 g/dl (12.0-15.5); LYMPH # 2.7 10^3/uL (1.5-5.0); LYMPH % 24.4 % (24.0-44.0); MEAN CORPUSCULAR HEMOGLOBIN 28.7 pg (27.0-33.0); MEAN CORPUSCULAR HGB CONC 32.6 g/dl (32.0-36.5); MEAN CORPUSCULAR VOLUME 88.1 fl (80.0-96.0); MONO # 0.8 10^3/uL (0.0-0.8); MONO % 7.6 % (0.0-5.0); NEUTROPHILS # 6.1 10^3/uL (1.5-8.5); NEUTROPHILS % 55.3 % (36.0-66.0); PLATELET COUNT, AUTOMATED 257 10^3/uL (150-450); RED BLOOD COUNT 4.63 10^6/uL (4.00-5.40)
[2020-09-03 16:55] LABS: ALBUMIN 3.7 GM/DL (3.2-5.2); BILIRUBIN,TOTAL 0.8 MG/DL (0.2-1.0); C REACTIVE PROTEIN QUANTITATIV 0.32 MG/DL (0.00-0.30); CALCIUM LEVEL 9.5 MG/DL (8.8-10.2); CREATININE FOR GFR 1.07 MG/DL (0.55-1.30); GLOMERULAR FILTRATION RATE 54.5 (>45); POTASSIUM SERUM 4.7 MEQ/L (3.5-5.1); TOTAL PROTEIN 7.1 GM/DL (6.4-8.2)
[2020-09-03 17:02] LABS: ERYTHROCYTE SEDIMENTATION RATE 20 mm/hr (0-30)
== END ==
LOC: M SFHCCLAY 10:20
PROVIDERS: ATTEND Internal Medicine
DX: M06.09 Rheumatoid arthritis without rheumatoid factor, multiple sites (principal)

== ENCOUNTER → 2020-10-09 | Outpatient (REF) | payer MEDICARE ==
[~2020-10-09] MED LIST changes: -LISI-542; -LISI-542 PO; +LISI-898; +LISI-898 PO
[2020-10-09 16:14] LABS: HEMATOCRIT 39.9 % (36.0-47.0); HEMOGLOBIN 13.3 g/dl (12.0-15.5); MEAN CORPUSCULAR HEMOGLOBIN 29.2 pg (27.0-33.0); MEAN CORPUSCULAR HGB CONC 33.3 g/dl (32.0-36.5); MEAN CORPUSCULAR VOLUME 87.7 fl (80.0-96.0); PLATELET COUNT, AUTOMATED 281 10^3/uL (150-450); RED BLOOD COUNT 4.55 10^6/uL (4.00-5.40); WHITE BLOOD COUNT 10.2 10^3/uL (4.0-10.0)
[2020-10-09 16:25] LABS: ALBUMIN 3.4 GM/DL (3.2-5.2); ALT/SGPT 19 U/L (12-78); BILIRUBIN,TOTAL 0.6 MG/DL (0.2-1.0); BLOOD UREA NITROGEN 25 MG/DL (7-18); CARBON DIOXIDE LEVEL 31 MEQ/L (21-32); CHLORIDE LEVEL 99 MEQ/L (98-107); CREATININE FOR GFR 0.93 MG/DL (0.55-1.30); GLOMERULAR FILTRATION RATE > 60.0 (>45); GLUCOSE, FASTING 206 MG/DL (70-100); NT-PRO BNP 886 PG/ML (<125); POTASSIUM SERUM 3.9 MEQ/L (3.5-5.1); SODIUM LEVEL 136 MEQ/L (136-145); THYROID STIMULATING HORMONE 0.211 uIU/ML (0.358-3.740)
== END ==
LOC: M LABDRAWC 15:34
PROVIDERS: ATTEND Internal Medicine Cardiovascular Disease
DX: I50.32 Chronic diastolic (congestive) heart failure (principal); I47.1 Supraventricular tachycardia; E03.9 Hypothyroidism, unspecified

== ENCOUNTER → 2020-12-09 | Outpatient (REF) | payer MEDICARE ==
[~2020-12-09] MED LIST changes: +MECL-136 PO; -MECL12.590 PO
[2020-12-09 16:44] LABS: HEMATOCRIT 40.3 % (36.0-47.0); HEMOGLOBIN 13.1 g/dl (12.0-15.5); MEAN CORPUSCULAR HEMOGLOBIN 28.8 pg (27.0-33.0); MEAN CORPUSCULAR HGB CONC 32.5 g/dl (32.0-36.5); MEAN CORPUSCULAR VOLUME 88.6 fl (80.0-96.0); PLATELET COUNT, AUTOMATED 343 10^3/uL (150-450); RED BLOOD COUNT 4.55 10^6/uL (4.00-5.40); WHITE BLOOD COUNT 11.3 10^3/uL (4.0-10.0)
[2020-12-09 17:28] LABS: ATYPICAL LYMPH 1 % (0-5); BASOPHILS 4 % (0-1); LYMPHOCYTES 17 % (16-44); MONOCYTES 6 % (0-5); MYELOCYTES 1 % (0-0); NEUTROPHILS 71 % (28-66)
[2020-12-09 17:29] LABS: PLATELET ESTIMATE NORMAL (NORMAL)
[2020-12-09 17:36] LABS: MALB URINE SIEMENS 62.8 MG/L; MAU/CREAT RATIO 52.3 MCG/MG (0.0-30.0)
[2020-12-09 18:15] LABS: BLOOD UREA NITROGEN 25 MG/DL (7-18); GLUCOSE, FASTING 247 MG/DL (70-100)
[2020-12-09 18:16] LABS: ALBUMIN 3.5 GM/DL (3.2-5.2); ALT/SGPT 19 U/L (12-78); BILIRUBIN,TOTAL 0.5 MG/DL (0.2-1.0); CALCIUM LEVEL 9.9 MG/DL (8.8-10.2); CARBON DIOXIDE LEVEL 28 MEQ/L (21-32); CHLORIDE LEVEL 101 MEQ/L (98-107); CHOLESTEROL LEVEL 296 MG/DL (<200); CHOLESTEROL RISK RATIO 6.883 (<5); FREE T4 1.61 NG/DL (0.76-1.46); GLOMERULAR FILTRATION RATE > 60.0 (>45); HDL CHOLESTEROL 43 MG/DL (>40); LDL CHOLESTEROL 210 MG/DL (<100); NON-HDL-C 253 MG/DL; POTASSIUM SERUM 4.1 MEQ/L (3.5-5.1); SODIUM LEVEL 137 MEQ/L (136-145); TOTAL PROTEIN 7.2 GM/DL (6.4-8.2); TRIGLYCERIDES LEVEL 215 MG/DL (<150)
[2020-12-09 18:46] LABS: HEMOGLOBIN A1c 12.7 %
== END ==
LOC: M SFHCCLAY 10:19
PROVIDERS: ATTEND Nurse Practitioner Family
DX: E11.65 Type 2 diabetes mellitus with hyperglycemia (principal); E03.9 Hypothyroidism, unspecified; E78.5 Hyperlipidemia, unspecified; Z86.2 Personal history of diseases of the blood and blood-forming organs and certain disorders involving the immune mechanism

== ENCOUNTER → 2021-01-02 | Outpatient (CLI) | payer MEDICARE ==
--- NOTE | 2021-01-02 10:34 | REPMRS ---
Patient History The patient states she has not had a clinical breast exam in over a year. Patient is postmenopausal and is nulliparous. Family history of colorectal cancer in paternal uncle. Baseline @ 70 Mammo done 20 yrs ago-no longer available No breast complaints today Patient signed the MRS sheet 1st covid vaccine 09/19/20-left arm-Pfizer 2nd covid vaccine 10/10/20-left arm Best views possible for right MLO due to a shoulder injury Patient Identification Verified Pacemaker put in 3 years ago Digital Woman Screen Mammo: January 02, 2021 - Exam #: [id number] Bilateral CC and MLO view(s) were taken. Technologist: Melisa Granados, Technologist FINDINGS: There are scattered fibroglandular densities. Screening. Digital screening (2D) mammography was performed bilaterally. Additionally, breast tomosynthesis (3D) mammography was perfomed bilaterally in the CC and MLO projections. Today's examination is the initial screening examination. By history, the patient has no complaints of a palpable breast abnormality or other significant breast complaints. The breasts are symmetric in size and shape. There are no masses. There is no internal architectural distortion. There are no suspicious microcalcific clusters. Skin thickening or nipple retraction is not present. IMPRESSION: BI-RADS Category 2- Benign Findings. There is no evidence of malignant alteration of the breasts. Followup examination recommended in one year. The [place]para volumetric breast density category is B, there are scattered areas of fibroglandular density. This mammogram was read with the assistance of Jairo Cloak,an FDA approved computer aided detection system for mammography. The lifetime Tyrer-Cuzick score is 2.9 % Negative x-ray reports should not delay surgical consultation if a dominant or clinically suspicious mass is present. Not all breast cancers can be identified by mammography. Therefore, we recommend that you continue to perform regular breast self-examination and physical examination and then promptly contact your physician of any concerns or changes. Adenosis and dense breasts may obscure an underlying neoplasm. Assessment: BI-RADS/ACR category 2 mammogram. Benign Findings. Recommendation Routine screening mammogram of both breasts in 1 year. Electronically Signed By: Servando Bear DO 01/02/21 [id number]
--- NOTE | 2021-01-02 14:28 | DEXAMM ---
INDICATION: M81.8 OSTEOPOROSIS. COMPARISON: None. TECHNIQUE: Bone density was measured using dual-energy x-ray absorptiometry (DEXA). FINDINGS: AP SPINE L1-L4 BMD 0.938 g/cm2 Young Adult T-Score -2.1 Age Matched Z-Score -0.4. RT FEMUR, TOTAL BMD 0.806 g/cm2 Young Adult T-Score -1.6 Age Matched Z-Score -0.2. RT NECK BMD 0.784 g/cm2 Young Adult T-Score -1.8 Age Matched Z-Score -0.2. IMPRESSION: There is low bone density of the spine. There is low bone density of the right hip. FOLLOW-UP: Recommendation for the next bone density exam: 2 years. <Electronically signed by Bryant Ott > 01/02/21 [id number]
== END ==
LOC: M WHC 08:19
PROVIDERS: ATTEND Nurse Practitioner Family
DX: Z12.31 Encounter for screening mammogram for malignant neoplasm of breast (principal); M81.0 Age-related osteoporosis without current pathological fracture

== ENCOUNTER → 2021-01-14 | Outpatient (REF) | payer MEDICARE ==
[2021-01-14 12:16] LABS: ALBUMIN 3.5 GM/DL (3.2-5.2); CALCIUM LEVEL 9.7 MG/DL (8.8-10.2); GLOMERULAR FILTRATION RATE 58.7 (>45); PHOSPHORUS LEVEL 3.1 MG/DL (2.5-4.9); POTASSIUM SERUM 3.8 MEQ/L (3.5-5.1)
== END ==
LOC: M LABDRAWC 11:11
PROVIDERS: ATTEND Internal Medicine Cardiovascular Disease
DX: I50.32 Chronic diastolic (congestive) heart failure (principal)

== ENCOUNTER → 2021-01-24 | Outpatient (REF) | payer MEDICARE ==
[2021-01-24 17:53] LABS: CALCIUM LEVEL 9.8 MG/DL (8.8-10.2); CREATININE FOR GFR 1.15 MG/DL (0.55-1.30); FREE T4 1.65 NG/DL (0.76-1.46); POTASSIUM SERUM 4.6 MEQ/L (3.5-5.1); THYROID STIMULATING HORMONE 1.29 uIU/ML (0.358-3.740)
== END ==
LOC: M SFHCCLAY 08:41
PROVIDERS: ATTEND Nurse Practitioner Family
DX: E03.9 Hypothyroidism, unspecified (principal); E11.65 Type 2 diabetes mellitus with hyperglycemia

== ENCOUNTER → 2021-01-24 | Outpatient (REF) | payer MEDICARE ==
[2021-01-24 17:45] LABS: ALBUMIN 3.9 GM/DL (3.2-5.2); CALCIUM LEVEL 9.8 MG/DL (8.8-10.2); CREATININE FOR GFR 1.19 MG/DL (0.55-1.30); PHOSPHORUS LEVEL 4.3 MG/DL (2.5-4.9); POTASSIUM SERUM 4.6 MEQ/L (3.5-5.1)
== END ==
LOC: M LABDRAWC 16:38
PROVIDERS: ATTEND Internal Medicine Cardiovascular Disease
DX: I50.33 Acute on chronic diastolic (congestive) heart failure (principal)

== ENCOUNTER → 2021-03-12 | Outpatient (REF) | payer MEDICARE ==
[~2021-03-12] MED LIST changes: +OMEP40CA4 PO; -OMEP40CA97 PO
[2021-03-12 14:22] LABS: ALBUMIN 3.5 GM/DL (3.2-5.2); BLOOD UREA NITROGEN 22 MG/DL (7-18); CALCIUM LEVEL 8.5 MG/DL (8.8-10.2); CARBON DIOXIDE LEVEL 26 MEQ/L (21-32); CHLORIDE LEVEL 102 MEQ/L (98-107); CREATININE FOR GFR 0.89 MG/DL (0.55-1.30); GLOMERULAR FILTRATION RATE > 60.0 (>45); GLUCOSE, FASTING 146 MG/DL (70-100); NT-PRO BNP 939 PG/ML (<125); PHOSPHORUS LEVEL 2.9 MG/DL (2.5-4.9); POTASSIUM SERUM 3.8 MEQ/L (3.5-5.1); SODIUM LEVEL 137 MEQ/L (136-145)
== END ==
LOC: M LABDRAWC 11:59
PROVIDERS: ATTEND Internal Medicine Cardiovascular Disease
DX: I50.32 Chronic diastolic (congestive) heart failure (principal)

== ENCOUNTER 2021-04-03 14:20 | Inpatient (IN) | payer MEDICARE ==
[~2021-04-03] VITALS: Ht 154.9 cm; Wt 85.8 kg
[2021-04-03] MEDS: APIXABAN 5 MG TAB (ELIQUIS) PO SCH (02:00)
[2021-04-03 15:44] LABS: HEMATOCRIT 40.1 % (36.0-47.0); HEMOGLOBIN 13.5 g/dl (12.0-15.5); MEAN CORPUSCULAR HEMOGLOBIN 29.3 pg (27.0-33.0); MEAN CORPUSCULAR HGB CONC 33.7 g/dl (32.0-36.5); MEAN CORPUSCULAR VOLUME 87.2 fl (80.0-96.0); PLATELET COUNT, AUTOMATED 436 10^3/uL (150-450); WHITE BLOOD COUNT 22.9 10^3/uL (4.0-10.0)
[2021-04-03 16:25] LABS: ALBUMIN 3.5 GM/DL (3.2-5.2); ALT/SGPT 21 U/L (12-78); BILIRUBIN,DIRECT 0.1 MG/DL (0.0-0.2); BILIRUBIN,TOTAL 0.5 MG/DL (0.2-1.0); BLOOD UREA NITROGEN 36 MG/DL (7-18); CALCIUM LEVEL 8.3 MG/DL (8.8-10.2); CARBON DIOXIDE LEVEL 28 MEQ/L (21-32); CHLORIDE LEVEL 101 MEQ/L (98-107); CK-MB VALUE MASS < 1.0 NG/ML (<3.6); CPK CREATINE PHOSPHOKINASE 80 U/L (26-192); CREATININE FOR GFR 1.03 MG/DL (0.55-1.30); GLOMERULAR FILTRATION RATE 56.7 (>45); GLUCOSE, FASTING 294 MG/DL (70-100); MB/CK RELATIVE INDEX 1.25 (< OR =4); NT-PRO BNP 1010 PG/ML (<125); POTASSIUM SERUM 3.9 MEQ/L (3.5-5.1); SODIUM LEVEL 135 MEQ/L (136-145); THYROXINE (T4) 10.1 UG/DL (4.5-12.0); TOTAL PROTEIN 6.9 GM/DL (6.4-8.2); TROPONIN I < 0.02 NG/ML (< 0.10)
[2021-04-03 17:00] LABS: VENOUS BASE EXCESS 0.6 (-2.0-2.0); VENOUS O2 SATURATION 87.6 % (60.0-80.0); VENOUS PARTIAL PRESSURE O2 49.4 mmHg (30.0-50.0); VENOUS PH 7.454 UNITS (7.330-7.430); VENOUS STANDARD HCO3 24.8 MEQ/L; VENOUS TOTAL CO2 25.1 MEQ/L (24.0-28.0)
--- NOTE | 2021-04-03 17:13 | REP ---
INDICATION: DYSPNEA/COUGH. COMPARISON: Portable chest dated 07/23/2019. TECHNIQUE: Portable AP chest with the patient sitting. FINDINGS: The lung rodriguez are clear. Cardiac size is normal. The shemar, mediastinum and skeletal structures are unremarkable. Dual chamber pacemaker, unchanged. IMPRESSION: Essentially portable chest No interval change. <Electronically signed by Bryant Mondragon > 04/03/21 [id number]
[2021-04-03 17:51] LABS: BASOPHILS 15 % (0-1); EOSINOPHILS 3 % (0-3); LYMPHOCYTES 12 % (16-44); MONOCYTES 2 % (0-5); NEUTROPHILS 65 % (28-66)
[2021-04-03 17:52] LABS: PLATELET ESTIMATE NORMAL (NORMAL)
--- NOTE | 2021-04-03 20:01 | REPVR ---
PROCEDURE INFORMATION: Exam: CT Abdomen And Pelvis Without Contrast Exam date and time: 04/03/2021 6:04 PM Age: 70 years old Clinical indication: Abdominal pain; Flank; Other: Bilat; Additional info: Abdominal pain, bilateral flank pain TECHNIQUE: Imaging protocol: Computed tomography of the abdomen and pelvis without contrast. Radiation optimization: All CT scans at this facility use at least one of these dose optimization techniques: automated exposure control; mA and/or kV adjustment per patient size (includes targeted exams where dose is matched to clinical indication); or iterative reconstruction. COMPARISON: CT ABD/PEL W/IV CONTRAST ONLY 09/10/2017 8:43 PM FINDINGS: Tubes, catheters and devices: Pacemaker in position. Lungs: Minimal right middle lobe fibro-atelectatic change. Liver: Normal. No mass. Gallbladder and bile ducts: There is a gallstone in the gallbladder measuring 20 mm. Pancreas: Normal. No ductal dilation. Spleen: Normal. No splenomegaly. Adrenal glands: Normal. No mass. 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 Duplication of the right renal collecting system with mild hydronephrosis of the lower pole moiety which is slightly increased since the prior study with no ureteral or UVJ calculi. Stomach and bowel: Unremarkable. No obstruction. No mucosal thickening. Appendix: There are no changes of appendicitis. A normal appendix is not seen. Intraperitoneal space: Unremarkable. No free air. No significant fluid collection. Vasculature: Unremarkable. No abdominal aortic aneurysm. Lymph nodes: Unremarkable. No enlarged lymph nodes. Urinary bladder: Minimal gas in the urinary bladder. Reproductive: Unremarkable as visualized. Bones/joints: Mild diffuse and wedge compression of L1 and moderate inferior endplate depression of L3 which appear to be chronic. Left hip prosthesis in position. Soft tissues: Unremarkable. IMPRESSION: 1. 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 No ureteral calculus is identified. 2. Cholelithiasis with 20 mm gallstone. 3. Mild diffuse and wedge compression of L1 and inferior endplate depression of L2 which appear to be chronic but are new since 09/10/2017. 4. Minimal gas in the urinary bladder which may reflect recent catheterization. Electronically signed by: Laron Holliday On 04/03/2021 20:01:29 PM
--- NOTE | 2021-04-03 21:09 | ECGEPIP ---
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
[2021-04-03] MEDS ORDERED: ACETAMINOPHEN TAB 650MG DOSE (2X325MG) PO PRN (21:55)
[2021-04-03] MEDS ORDERED: FOLI1TAB11 PO (21:57)
[2021-04-03] MEDS ORDERED: ESTR3TA PO (21:57)
[2021-04-03] MEDS ORDERED: FARX1TAB3 PO (21:57)
[2021-04-03] MEDS ORDERED: SPIR-10 PO (21:57)
[2021-04-03] MEDS ORDERED: INSULADS SC (21:57)
[2021-04-03] MEDS ORDERED: DICL1GEL3 TOP (21:57)
[2021-04-03] MEDS ORDERED: POTA10TA17 PO (21:57)
[2021-04-03] MEDS ORDERED: TORS20TA2 PO ×2 (21:57)
[2021-04-03] MEDS ORDERED: SYNT75TA PO (21:57)
[2021-04-03] MEDS ORDERED: CALC600T17 PO (21:57)
[2021-04-03] MEDS ORDERED: HOME MED LIST COMPLETE! XX SCH (23:05)
[2021-04-03 23:22] LABS: LDH LACTATE DEHYDROGENASE 360 U/L (84-246)
--- NOTE | 2021-04-03 23:31 | HPEPDOC ---
General Date of Admission Apr 03, 2021 at 21:55 Date of Service: Apr 03, 2021 Chief Complaint The patient is a 70-year-old female admitted with a reason for visit of Chf Exacerbation. Source: Patient History of Present Illness Barbara Bethea is a 70-year-old white female with significant history of diabetes, hypertension, HDL, obesity, CAD status post 3 stents in 2010, A. 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 Patient reports vague systematic complaints but chief 3 concerns relate to fatigue/malaise, dizziness, dyspnea on exertion, bilateral lower extremity edema. Patient reports that typically at baseline she walks 45 minutes every morning in the past 3 days she has been unable to as she reports "feeling rundown". She describes periods of dizziness including when she wakes up she may feel dizzy or with positional changes she may be dizzy. She denies a history of vertigo. Pt denies sinus congestion, sore throat, productive cough, palpitations, chest pain, n/v/d, abdominal pain, sensory changes or syncope. Patient does report a base of skull headache described as mild tenderness that has been going on recently. She denies trauma or fall. She reports compliance with her m edication. Of note, patient reports that her heart rate has been in the 40s at home and this is new as her pacemaker had been "turned down" 2 to 3 weeks ago with her patient flow coordinator Dr. Coyne. BNP 1010, chest x-ray without overt congestion but patient with notable bilateral extremity swelling and reported weight gain of 3 pounds in past 2 days. ABG shows compensation on room air. CT abdomen pelvis nonacute, but questionable hydronephrosis without ureteral calculus. Gallstone identified but not cholecystitis. Patient will be admitted for further evaluation and management of presenting concerns Home Medications Scheduled Apixaban (Eliquis) 5 Mg Tab, 5 MG PO BID, (Reported) Calcium Carbonate/Vitamin D3 (Calcium 600-Vit D3 400 Tablet) 1 Each Tablet, 1 TAB PO BID, (Reported) Conjugated Estrogens (Premarin) 0.3 Mg Tablet, 0.3 MG PO DAILY, (Reported) Folic Acid (Folic Acid) 1 Mg Tablet, 1 MG PO DAILY, (Reported) Glimepiride (Glimepiride) 4 Mg Tab, 4 MG PO BID, (Reported) Insulin Glargine (Lantus) 100 Unit/1 Ml Vial, 30 UNIT SC QPM, (Reported) AFTER SUPPER Levothyroxine Sodium (Synthroid) 75 Mcg Tablet, 75 MCG PO DAILY, (Reported) Potassium Chloride (Potassium Chloride) 10 Meq Tab.er.prt, 20 MEQ PO BID, (Reported) Spironolactone (Spironolactone) 25 Mg Tablet, 25 MG PO QPM, (Reported) TAKES AROUND 1600 Torsemide (Torsemide) 20 Mg Tablet, 20 MG PO DAILY, (Reported) Scheduled PRN Diclofenac Sodium (Diclofenac Sodium) 1% 100GM Gel..gram., 4 GM TOP QID PRN for PAIN LEVEL 1-5, (Reported) APPLY EVENLY TO HANDS AND ELBOWS Fluticasone Propionate (Flonase Allergy Relief) 50 Mcg/Act Spr, 2 SPRAYS NA DAILY PRN for NASAL CONGESTION, (Reported) Nitroglycerin (Nitrostat) 0.4 Mg Subl, 0.4 MG SL NITRO PRN for CHEST PAIN, (Reported) Torsemide (Torsemide) 20 Mg Tablet, 20 MG PO QPM PRN for EDEMA, (Reported) TAKES NEEDED IF THERE IS ADDITIONAL SWELLING Allergies Coded Allergies: Penicillins (Verified Allergy, Intermediate, Rash, 03/29/19) Quinolones (Verified Allergy, Intermediate, Hives, 03/29/19) Sulfa (Sulfonamide Antibiotics) (Verified Allergy, Intermediate, Rash, 03/29/19) clavulanic acid (Verified Allergy, Intermediate, Rash, 03/29/19) sulfamethoxazole (Verified Allergy, Intermediate, Rash, 03/29/19) trimethoprim (Verified Allergy, Intermediate, rash, 03/29/19) Cephalosporins (Verified Adverse Reaction, Mild, yeast , 03/29/19) metformin (Verified Adverse Reaction, Mild, diarrhea, decreased ambulation, 03/29/19) Past Medical History Medical History CVA without residual, diabetes, hypertension, HDL, CAD with 3 stents in 2010, CHF, A. fib Surgical History Oophorectomy, right knee surgery, pacemaker, left ear surgery Family History Significant Family History: Cancer, Heart disease Social History * Smoker: Denies Alcohol: Denies Drugs: denies Recent Travel/Sick Contacts: Denies: Recent travel, Recent sick contacts Psychosocial History: No pertinent psych hx A-FIB/CHADSVASC A-FIB History Current/History of A-Fib/PAF?: Yes Current PO Anticoag Therapy: Yes Review of Systems Constitutional: Reports: Malaise, Weakness, Fatigue; Denies: Chills, Fever, Night Sweats Eyes: Denies: Pain, Vision change ENT: Denies: Head Aches, Ear Pain, Dysphagia Skin: Denies: Rash, Lesions, Breakdown Pulmonary: Reports: Dyspnea; Denies: Cough Cardiovascular: Reports: Edema, Lt Headedness; Denies: Chest Pain, Palpitations, Orthopnea, Paroxysmal Noc. Dyspnea Gastrointestinal: Denies: Nausea, Vomiting, Abdominal Pain, Diarrhea Genitourinary: Denies: Dysuria, Frequency, Incontinence, Retention Hematologic: Reports: Bruising, Petecchia; Denies: Bleeding Excessively Musculoskeletal: Denies: Neck Pain, Back Pain, Joint Pain, Muscle Pain, Spasms Neurological: Reports: Weakness, Other Symptoms (Dizziness); Denies: Numbness, Change in speech, Confusion Psych: Reports: Mood Normal; Denies: Depression, Memory Issues Physical Examination General Exam: Positive: Alert, No Acute Distress Eye Exam: Positive: PERRLA, Conjunctiva & lids normal, EOMI; Negative: Sclera icteric ENT Exam: Positive: Atraumatic, Mucous membr. moist/pink, Pharynx Normal, Other ENT (Missing teeth, hair thinning/female pattern baldness) Neck Exam: Positive: Supple; Negative: JVD, thyromegaly Chest Exam: Positive: Clear to auscultation, Normal air movement Heart Exam: Positive: Rate Normal, Regular Rhythm, Normal S1, Normal S2; Negative: Murmurs, Rubs Telemetry: Positive: No significant arrhythmia Abdomen Exam: Positive: Normal bowel sounds, Soft; Negative: Tenderness, Hepatospenomegaly Extremity Exam: Positive: Edema (2+ bilateral lower extremity edema), Normal pulses; Negative: Clubbing, Cyanosis Skin Exam: Positive: Nl turgor and temperature, Other skin issue (Notable superficial bruising, petechiae); Negative: Breakdown, Lesion Neuro Exam: Positive: Normal Gait, Normal Speech, Cranial Nerves 3-12 NL, Reflexes 2+ Psych Exam: Positive: Mental status NL, Mood NL, Oriented x 3 Vital Signs Vital Signs Date Time Temp Pulse Resp B/P (MAP) Pulse Ox O2 Delivery O2 Flow Rate FiO2 04/03/21 23:05 57 18 Room Air 04/03/21 21:05 94 04/03/21 20:31 177/75 (109) 04/03/21 14:21 98.3 Laboratory Data Labs 24H Laboratory Tests 2 04/03/21 15:31: Differential Slide Review Report, Peripheral Blood Smear Path Consult PERIPHERAL SMEAR 04/03/21 15:34: Immature Granulocyte % (Auto) , Neutrophils (%) (Auto) , Nucleated Red Blood Cells % (auto) 0.1H, Neutrophils 65, Band Neutrophils 3, Lymphocytes (Manual) 12L, Monocytes (Manual) 2, Eosinophils (Manual) 3, Basophils (Manual) 15H, Platelet Estimate NORMAL, Anion Gap 6L, Glomerular Filtration Rate 56.7, Calcium Level 8.3L, Total Bilirubin 0.5, Direct Bilirubin 0.1, Aspartate Amino Transf (AST/SGOT) 15, Alanine Aminotransferase (ALT/SGPT) 21, Alkaline Phosphatase 76, Total Creatine Kinase 80, Creatine Kinase MB < 1.0, Creatine Kinase MB Relative Index 1.25, Troponin I < 0.02, MO-Zkf-A-Type Natriuretic Peptide 1010H, Total Protein 6.9, Albumin 3.5, Albumin/Globulin Ratio 1.0L, Thyroid Stimulating Hormone (TSH) 4.710H, Thyroxine (T4) 10.1 04/03/21 16:26: POC Troponin I (Misc) 0.02 04/03/21 16:36: Blood Gas Bicarbonate Standard 24.8, Venous Blood pH 7.454H, Venous Blood Partial Pressure CO2 35.0L, Venous Blood Partial Pressure O2 49.4, Venous Blood Total Carbon Dioxide 25.1, Venous Blood HCO3 24.0, Venous Blood Oxygen Saturation 87.6H, Venous Blood Base Excess 0.6, Lactic Acid Level 1.1 04/03/21 17:46: Urine Color COLORLESS, Urine Appearance CLEAR, Urine pH 6.0, Urine Specific [place] 1.005, Urine Protein NEGATIVE, Urine Glucose (UA) 2+H, Urine Ketones NEGATIVE, Urine Blood NEGATIVE, Urine Nitrite NEGATIVE, Urine Bilirubin NEGATIVE, Urine Urobilinogen 0.2, Urine Leukocyte Esterase NEGATIVE, Urine WBC (Auto) 1, Urine RBC (Auto) 2, Urine Hyaline Casts (Auto) 0, Urine Bacteria (Auto) NEGATIVE, Urine Squamous Epithelial Cells 0, Urine Sperm (Auto) CBC/BMP Laboratory Tests 04/03/21 15:34 Microbiology Microbiology 04/03/21 Blood Culture, Received Pending 04/03/21 Respiratory Virus Panel (PCR) (YANI) - Final, Complete 04/03/21 Blood Culture, Received Pending Assessment/Plan 1. Dizziness/lightheadedness/ generalized weakness: In setting of multiple chronic conditions in frail elder. * Initial concern given patient also has headache and blood thinners with significant posterior inferior left cerebellar CVA history- whether or not patient has some further cerebellar involvement. CT head without acute findings. * ABG also completed given patient had some shortness of breath with her CHF exacerbation CO2 was not elevated thankfully. * Patient does have leukocytosis without lactic acidosis: There is concern regarding possible infection versus other underlying hematological concern. * We will consider orthostasis as patient did mention some positional component. * Another consideration would be patient did have recent pacemaker adjustment 2 to 3 weeks ago and reported that her heart rate was in the 40s at home and thus there could be a symptomatic bradycardia presenting. -Plan for telemetry and continuous pulse ox. -CT head nonacute and thus, consider MRA or carotid ultrasound in a.m. if patient without improvement with treatment below. -Echo to be obtained in the morning. -Orthostatics in a.m. -A.m. lab work-we will check Lyme. -Consider cardiology consult for pacemaker interrogation. -Consider differential 2. CHF exacerbation: Given shortness of breath and weight gain as well as bilateral lower extremity edema increase with elevated BNP-we will plan for gentle diuresis. Chest x-ray thankfully did not appear congested and patient tolerating room air. -Monitor patient and fluid balance. Daily weight. A.m. labs. Echo in a.m. to determine EF. 3. Leukocytosis: Without lactic acidosis. CXR/ UA unremarkable. CT a/p noted gallstone and mild hydronephrosis. Lab review shows trend increase of WBCs over time. Patient without neutrophilia, but does have basophilia. She denies any autoimmune conditions other than a questionable history of RA but she is not on any medications for this and she is not not on any steroids. She denies any significant familial cancer history such as leukemia. She does report some superficial bruising/petechiae on her forearms-platelets robust at 436. -Monitor patient, monitor for signs symptoms of infection. Peripheral blood smear has been ordered. Consider differentials. Recommendation for hem/onc consult with d/c. 4. Mild hydronephrosis noted on CT: Could be relative to above presentation. Patient without urinary complaints. UA unremarkable. CT abdomen pelvis describes a slight increase compared to previous imaging and no uretal stone identified. -Monitor pt, is and Os. Consider further work up/ urological consult. 5. DM: Monitor patient blood glucose. Accu-Cheks before meals at bedtime. Check A1c. Sliding scale insulin. Consider continuation of home regimen pending reconciliation. 5. Hypertension: Monitor BP. Continue home medications once reconciled. Given dizziness will check orthostatics. 6. A. fib and pacemaker: Telemetry. Patient rate controlled. Continue home medications. Continue Eliquis 7. Obesity: Complicates care DVT: Eliquis SCDs CODE STATUS: Full code, patient reports that her brother care he knows her wishes and would be her executor Dispo: Home, anticipate 2 midnight stays. Plan / VTE VTE Prophylaxis Ordered?: Yes KEVIN BOWMAN NP Apr 03, 2021 23:19
--- NOTE | 2021-04-03 23:41 | REPVR ---
PROCEDURE INFORMATION: Exam: CT Head Without Contrast Exam date and time: 04/03/2021 11:14 PM Age: 70 years old Clinical indication: Dizziness; Additional info: Dizziness, skull base MONREAL TECHNIQUE: Imaging protocol: Computed tomography of the head without contrast. Radiation optimization: All CT scans at this facility use at least one of these dose optimization techniques: automated exposure control; mA and/or kV adjustment per patient size (includes targeted exams where dose is matched to clinical indication); or iterative reconstruction. COMPARISON: CT Head without contrast 11/21/2018 11:05 AM FINDINGS: Brain: Focus of old infarct in the posterior inferior paramedian left cerebellum. There is minimal patchy low attenuation of deep white matter. There is slight prominence of the peripheral sulci. Cerebral ventricles: The ventricles are upper normal. Paranasal sinuses: Visualized sinuses are unremarkable. No fluid levels. Mastoid air cells: Visualized mastoid air cells are well aerated. Bones/joints: Unremarkable. No acute fracture. Soft tissues: Unremarkable. IMPRESSION: 1. Minimal chronic ischemic white matter change and atrophy with small focus of old infarct in the posteroinferior left cerebellum which is unchanged from 11/21/2018. 2. Otherwise negative noncontrast head CT. Electronically signed by: Laron Holliday On 04/03/2021 23:40:08 PM
[2021-04-03 23:42] LABS: C REACTIVE PROTEIN QUANTITATIV 0.34 MG/DL (0.00-0.30); MAGNESIUM LEVEL 2.1 MG/DL (1.8-2.4)
[2021-04-03 23:44] LABS: ERYTHROCYTE SEDIMENTATION RATE 12 mm/hr (0-30)
[2021-04-03 23:45] LABS: HEMOGLOBIN A1c 12.1 %
[2021-04-04] VITALS (13 sets, daily range): BP systolic 120–175; BP diastolic 54–80; O2SAT 94–98
[2021-04-04] MEDS ORDERED: FLUTICASONE PROP 0.05% NASAL SPRAY 16 GM (FLONASE) PRN (01:20)
[2021-04-04] MEDS: SPIRONOLACTONE 25 MG TAB PO SCH ×2 (02:00→15:50)
[2021-04-04] MEDS: TORSEMIDE 20 MG TAB PO SCH ×2 (02:02→09:44)
[2021-04-04] MEDS: POTASSIUM CHLORIDE 10 MEQ SR TABLET PO SCH ×2 (02:04→09:45)
[2021-04-04 04:54] LABS: HEMOGLOBIN 13.3 g/dl (12.0-15.5); MEAN CORPUSCULAR HEMOGLOBIN 28.6 pg (27.0-33.0); MEAN CORPUSCULAR HGB CONC 33.3 g/dl (32.0-36.5); PLATELET COUNT, AUTOMATED 427 10^3/uL (150-450); RED BLOOD COUNT 4.65 10^6/uL (4.00-5.40); WHITE BLOOD COUNT 19.6 10^3/uL (4.0-10.0)
[2021-04-04 05:15] LABS: BLOOD UREA NITROGEN 29 MG/DL (7-18); CALCIUM LEVEL 8.9 MG/DL (8.8-10.2); CARBON DIOXIDE LEVEL 28 MEQ/L (21-32); CHLORIDE LEVEL 106 MEQ/L (98-107); CREATININE FOR GFR 0.82 MG/DL (0.55-1.30); GLOMERULAR FILTRATION RATE > 60.0 (>45); GLUCOSE, FASTING 149 MG/DL (70-100); POTASSIUM SERUM 3.9 MEQ/L (3.5-5.1); SODIUM LEVEL 142 MEQ/L (136-145)
[2021-04-04 05:21] LABS: ATYPICAL LYMPH 2 % (0-5); BASOPHILS 8 % (0-1); EOSINOPHILS 5 % (0-3); LYMPHOCYTES 15 % (16-44); METAMYELOCYTES 5 % (0-0); MONOCYTES 2 % (0-5); NEUTROPHILS 63 % (28-66); PLATELET ESTIMATE INCREASED (NORMAL)
[2021-04-04 05:22] LABS: GIANT PLATELETS 1+
[2021-04-04] MEDS ORDERED: LEVOTHYROXINE 75MCG TABLET (0.075MG) PO SCH (06:00)
[2021-04-04] MEDS ORDERED: FOLIC ACID 1 MG TAB PO SCH (09:00)
[2021-04-04] MEDS: APIXABAN 5 MG TAB (ELIQUIS) PO SCH (09:45)
[2021-04-04] MEDS ORDERED: DEXTROSE 50% 50 ML SYRINGE IV PRN (11:40)
[2021-04-04] MEDS ORDERED: GLUCAGON INJ 1MG VIAL SC PRN (11:40)
[2021-04-04] MEDS ORDERED: GLUCOSE 4GM CHEW TABLET PO PRN (11:40)
--- NOTE | 2021-04-04 11:40 | IPNPDOC ---
Text Note Date of Service The patient was seen on 04/04/21. NOTE S: Pt seen and evaluated at bedside. She tells me she is doing well and sx un changed since admission. Reports trying to improve cardiovascular health by walking 40-45min/day through her parking lot, but recently has had worsening SOB during it. Reports mildly productive cough (white phlegm/mucous). O: GEN: sitting on edge of bed eating breakfast, NAD HEENT: NC/AT, EOMI, nares patent, moist mucous membranes, no JVD CARDIO: normal heart sounds, RRR, no MRG PULM: CTA b/l, no WRR, no crackles, no accessory muscles used ABD: normal BS, soft, nontender, nondistended EXTREMITIES: b/l LE edema, b/l pedal edema, normal ROM IMAGING: CXR (04/03): Essentially portable chest No interval change. CT abd/pelvis (04/03): 1. 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 No ureteral calculus is identified. 2. Cholelithiasis with 20 mm gallstone. 3. Mild diffuse and wedge compression of L1 and inferior endplate depression of L2 which appear to be chronic but are new since 09/10/2017. 4. Minimal gas in the urinary bladder which may reflect recent catheterization. CT head (04/03): 1. Minimal chronic ischemic white matter change and atrophy with small focus of old infarct in the posteroinferior left cerebellum which is unchanged from 11/21/2018. 2. Otherwise negative noncontrast head CT. Pathology: Peripheral smear (04/04): Leukocytosis. Immature myeloid cells/metamyelocytes and myelocytes are noted. Basophilia is noted. Hb and platelets are normal. If WBC findings persist after the acute disease process is treated, a myeloproliferative process/MPN should be ruled out. A/P: 70F PMH HTN, CHF, DM2, #SOB w/ exertion, most likely 2/2 pulmonary HTN vs decreased CO output CXR negative. ABG wnl Echocardiogram pending #Dizziness, 2/2 sx bradycardia (HR 49-57) vs uncontrolled DM2 (HbA1c 12.1) CT head negative Echocardiogram pending Pt complains of orthostasis w/ worsened dizziness upon standing Fall risk precautions On telemetry #Bradycardia Pt remains sx HR today 52 s/p PM. Pt claims it is set to 40bpm #DM2, poorly controlled HbA1c 12.1. BS this AM 149 Pt takes 30U Lantus at home. Start Levemir 20U QHS, Insulin SS Monitor labs #s/p PM due to Afib On Eliquis Pt follows closely w/ Cardiology (Dr. Coyne) #Leukocytosis WBC 19.6, LA 1.1 Blood cx (04/03) pending Peripheral blood smear, as noted above Possible myeloplastic disorder Recommend repeat peripheral blood smear outpatient w/ possible Hem/Onc referral for further w/u #CHF, unlikely exacerbation ProBNP 1010 Pt not clinically fluid overloaded. On Spironolactone, Torsemide #Hypothyroidism TSH 4.71, Free T4 10.1 On Synthroid #DM2 HbA1c 12.1, BS 149 this AM Start levemir 20U, Insulin SS #DVT Prophylaxis On Eliquis TEDs and Sequentials DISPO: home, pending clinical improvement Activity as tolerated w/ fall risk precautions 2g Na+, consistent carb diet VS,Fishbone, I+O VS, Fishbone, I+O Laboratory Tests 04/03/21 15:34 04/04/21 04:31 Vital Signs Date Time Temp Pulse Resp B/P (MAP) Pulse Ox O2 Delivery O2 Flow Rate FiO2 04/04/21 08:00 97.4 50 18 140/80 (100) Room Air 04/04/21 04:05 96 I&O- Last 24 Hours up to 6 AM 04/04/21 05:59 Intake Total 0 ml Output Total 300 ml Balance -300 ml hSaila Flor DO Apr 04, 2021 11:40
[2021-04-04] MEDS ORDERED: HumaLOG INSULIN (NovoLOG) PER UNIT SC SCH ×2 (12:00→21:00)
--- NOTE | 2021-04-04 16:49 | DS.PDOC ---
Discharge Summary General Date of Admission Apr 03, 2021 at 21:55 Date of Discharge 04/04/21 Attending Physician: LEONARD LOPEZ MD Discharge Summary PROCEDURES PERFORMED DURING STAY: None ADMITTING DIAGNOSES: 1. CHF exacerbation DISCHARGE DIAGNOSES: 1. Acute on chronic Orthostasis w/ associated dizziness, SOB w/ exertion COMPLICATIONS/CHIEF COMPLAINT: Chf Exacerbation. 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 Reported dizziness that is exacerbated w/ changes in position. She walks 40-45min every day in her parking lot to improve cardiovascular health, but has been unable to over the last 3days due to worsened SOB w/ exertion and fatigue. Reported HR in 40s recently, following having PM "turned down" 2-3wks prior w/ cardiology (Dr. Coyne). Reported compliance w/ home meds. Reported fatigue/malaise, headache, 3lb unintentional weight gain over last 2days. Denied hx vertigo, trauma, falls. Denied recent illness, syncope, sensory changes, cough, palpitations, chest pain, n/v, changes in vision, lightheadedness. ED labs significant for WBC 22.9, BNP 1010. Imaging in ED unremarkable, as noted below. HOSPITAL COURSE: Pt suspected to have CHF exacerbation vs sx bradycardia from recent PM setting changes and admitted for further observation and management. BP 127/57, HR 52 (49-57). Orthostatics performed 04/04: (laying) BP 175/74, HR 54; (sitting) BP 167/73, HR 56; (standing) BP 138/54, HR 62. Pt O2sat 96%RA and did not appear fluid overloaded on clinical exam. Her home meds for CHF (Torsemide, Spironolactone) were continued on admission, pt reported good urine output. Most recent echocardiogram from 10/19/2018 unremarkable for structural changes w/ LVEF 45%, report noted below. At this time, CHF exacerbation was unlikely and pt's sx most likely 2/2 bradycardia. Spoke w/ pt's Air Breaker Operator, Dr. Coyne, who is very familiar w/ pt and her hx. He reassured that her presenting sx are chronic and unable to be managed inpatient. Denies recent changes in pt's PM settings and does not believe current sx and bradycardia are associated. Pt's presenting sx (dizziness, SOB w/ exertion, orthostasis) were unchanged upon d/c. Pt found to have WBC 22.9 w/ basophilia (04/03). WBC 19.6 (04/04). Pt reports taking Prednisone for suspected RA last month, but denies current/recent use. Peripheral blood smear noted below, suspicious of possible myeloplastic disease. Will need further w/u outpatient. Pt found to have HbA1c 12.1 w/ BS 149 and was started on Levemir 20U w/ Insulin SS. She will need further optimization of DM2 medications outpatient. DISCHARGE MEDICATIONS: Please see below. ALLERGIES: Please see below. PHYSICAL EXAMINATION ON DISCHARGE: VITAL SIGNS: Please see below. GENERAL: sitting on edge of bed eating breakfast, NAD HEENT: NC/AT, EOMI, nares patent, moist mucous membranes, no JVD NECK: supple CARDIOVASCULAR EXAMINATION: normal heart sounds, RRR, no MRG RESPIRATORY EXAMINATION: CTA b/l, no WRR, no crackles, no accessory muscles used ABDOMINAL EXAMINATION: normal BS, soft, nontender, nondistended EXTREMITIES: b/l LE edema, b/l pedal edema, normal ROM SKIN: no new rashes/abrasions/wounds NEUROLOGICAL EXAMINATION: no FND, no changes in strength PSYCHIATRIC EXAMINATION: AOx3, normal mood/affect LABORATORY DATA: Please see below. IMAGING: Echocardiogram (10/19/2018): Consistent AV sequentially paced rhythm. Paced QRS complexes with left bundle branch block (LBBB) configuration. Technically difficult study in light of the patient's body habitus, but diagnostically useful information was still obtained. M-mode and two-dimensional echocardiography was performed with pulsed, continuous wave, color flow and tissue Doppler studies. Mild concentric left ventricle hypertrophy with paradoxical septal motion and apical akinesis related to right ventricular pacing resulting in at least a mild impairment of global resting systolic function. Mildly dilated left atrium with impairment of left ventricle (LV) diastolic function and current estimated mean left atrial pressure at least mildly e levated. Normal right heart chamber sizes and motion with Doppler evidence of at least moderate pulmonary hypertension. Normal inferior vena cava (IVC) size and collapse against an elevated central v enous pressure at this time. Aortic valvular sclerosis without functional valvular abnormality. Normal aortic root size. Mild mitral annular calcification with no more than trace mitral insufficiency. Normal appearing tricuspid valve with trace insufficiency. Pacing leads could be visualized traversing right heart structures but no separate intracardiac mass. No pericardial effusion. Comparing today's study with that described September 12, 2017 there did not appear CXR (04/03): Essentially portable chest No interval change. CT abd/pelvis (04/03): 1. 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 No ureteral calculus is identified. 2. Cholelithiasis with 20 mm gallstone. 3. Mild diffuse and wedge compression of L1 and inferior endplate depression of L2 which appear to be chronic but are new since 09/10/2017. 4. Minimal gas in the urinary bladder which may reflect recent catheterization. CT head (04/03): 1. Minimal chronic ischemic white matter change and atrophy with small focus of old infarct in the posteroinferior left cerebellum which is unchanged from 11/21/2018. 2. Otherwise negative noncontrast head CT. Pathology: Peripheral smear (04/04): Leukocytosis. Immature myeloid cells/metamyelocytes and myelocytes are noted. Basophilia is noted. Hb and platelets are normal. If WBC findings persist after the acute disease process is treated, a myeloproliferative process/MPN should be ruled out. PROGNOSIS: fair ACTIVITY: As tolerated DIET: diabetic diet DISCHARGE PLAN: 1. Orthostasis w/ associated dizziness, SOB w/ exertion F/u Cardiology (Dr. Coyne), 7-10days 2. DM2, poorly controlled F/u PCP, 7-10days 3. Leukocytosis w/ abnormal peripheral blood smear F/u PCP, 7-10days DISPOSITION: home DISCHARGE INSTRUCTIONS: 1. F/u Cardiology (Dr. Coyne), 7-10days 2. F/u PCP, 7-10days ITEMS TO FOLLOWUP ON ON OUTPATIENT: 1. Cardiology- orthostasis, sx bradycardia 2. PCP- poorly controlled DM2 (HbA1c 12.1) Leukocytosis w/ abnormal peripheral blood smear. Recommend repeating peripheral blood smear, Hem/Onc referral pending repeat peripheral blood smear. DISCHARGE CONDITION: Stable TIME SPENT ON DISCHARGE: 20 minutes. Vital Signs/I&Os Vital Signs Date Time Temp Pulse Resp B/P (MAP) Pulse Ox O2 Delivery O2 Flow Rate FiO2 04/04/21 15:32 62 138/54 (82) 04/04/21 12:00 94 Room Air 04/04/21 12:00 97.2 16 I&O- Last 24 Hours up to 6 AM 04/04/21 06:00 Intake Total 0 ml Output Total 500 ml Balance -500 ml Laboratory Data Labs 24H Laboratory Tests 2 04/03/21 16:26: POC Troponin I (Misc) 0.02 04/03/21 16:36: Blood Gas Bicarbonate Standard 24.8, Venous Blood pH 7.454H, Venous Blood Partial Pressure CO2 35.0L, Venous Blood Partial Pressure O2 49.4, Venous Blood Total Carbon Dioxide 25.1, Venous Blood HCO3 24.0, Venous Blood Oxygen Saturation 87.6H, Venous Blood Base Excess 0.6, Lactic Acid Level 1.1 04/03/21 17:46: Urine Color COLORLESS, Urine Appearance CLEAR, Urine pH 6.0, Urine Specific Smoot 1.005, Urine Protein NEGATIVE, Urine Glucose (UA) 2+H, Urine Ketones NEGATIVE, Urine Blood NEGATIVE, Urine Nitrite NEGATIVE, Urine Bilirubin NEGATIVE, Urine Urobilinogen 0.2, Urine Leukocyte Esterase NEGATIVE, Urine WBC (Auto) 1, Urine RBC (Auto) 2, Urine Hyaline Casts (Auto) 0, Urine Bacteria (Auto) NEGATIVE, Urine Squamous Epithelial Cells 0, Urine Sperm (Auto) 04/04/21 04:31: Immature Granulocyte % (Auto) , Neutrophils (%) (Auto) , Nucleated Red Blood Cells % (auto) 0.0, Neutrophils 63, Lymphocytes (Manual) 15L, Monocytes (Manual) 2, Eosinophils (Manual) 5H, Basophils (Manual) 8H, Metamyelocytes 5H, Atypical Lymphocytes 2, Giant Platelets 1+, Platelet Estimate INCREASED, Anion Gap 8, Glomerular Filtration Rate > 60.0, Calcium Level 8.9 04/04/21 12:54: Bedside Glucose (Misc Panel) 247H CBC/BMP Laboratory Tests 04/04/21 04:31 FSBS Laboratory Tests Test 04/04/21 12:54 Range/Units Bedside Glucose (Misc Panel) 247 80-115 MG/DL Microbiology Microbiology 04/03/21 Blood Culture, Received Pending 04/03/21 Respiratory Virus Panel (PCR) (YANI) - Final, Complete 04/03/21 Blood Culture, Received Pending Discharge Medications Scheduled Apixaban (Eliquis) 5 Mg Tab, 5 MG PO BID, (Reported) Calcium Carbonate/Vitamin D3 (Calcium 600-Vit D3 400 Tablet) 1 Each Tablet, 1 TAB PO BID, (Reported) Conjugated Estrogens (Premarin) 0.3 Mg Tablet, 0.3 MG PO DAILY, (Reported) Folic Acid (Folic Acid) 1 Mg Tablet, 1 MG PO DAILY, (Reported) Glimepiride (Glimepiride) 4 Mg Tab, 4 MG PO BID, (Reported) Insulin Glargine (Lantus) 100 Unit/1 Ml Vial, 30 UNIT SC QPM, (Reported) AFTER SUPPER Levothyroxine Sodium (Synthroid) 75 Mcg Tablet, 75 MCG PO DAILY, (Reported) Potassium Chloride (Potassium Chloride) 10 Meq Tab.er.prt, 20 MEQ PO BID, (Reported) Spironolactone (Spironolactone) 25 Mg Tablet, 25 MG PO QPM, (Reported) TAKES AROUND 1600 Torsemide (Torsemide) 20 Mg Tablet, 20 MG PO DAILY, (Reported) Scheduled PRN Diclofenac Sodium (Diclofenac Sodium) 1% 100GM Gel..gram., 4 GM TOP QID PRN for PAIN LEVEL 1-5, (Reported) APPLY EVENLY TO HANDS AND ELBOWS Fluticasone Propionate (Flonase Allergy Relief) 50 Mcg/Act Spr, 2 SPRAYS NA DAILY PRN for NASAL CONGESTION, (Reported) Nitroglycerin (Nitrostat) 0.4 Mg Subl, 0.4 MG SL NITRO PRN for CHEST PAIN, (Reported) Torsemide (Torsemide) 20 Mg Tablet, 20 MG PO QPM PRN for EDEMA, (Reported) TAKES NEEDED IF THERE IS ADDITIONAL SWELLING Allergies Coded Allergies: Penicillins (Verified Allergy, Intermediate, Rash, 03/29/19) Quinolones (Verified Allergy, Intermediate, Hives, 03/29/19) Sulfa (Sulfonamide Antibiotics) (Verified Allergy, Intermediate, Rash, 03/29/19) clavulanic acid (Verified Allergy, Intermediate, Rash, 03/29/19) sulfamethoxazole (Verified Allergy, Intermediate, Rash, 03/29/19) trimethoprim (Verified Allergy, Intermediate, rash, 03/29/19) Cephalosporins (Verified Adverse Reaction, Mild, yeast , 03/29/19) metformin (Verified Adverse Reaction, Mild, diarrhea, decreased ambulation, 03/29/19) Shaila Flor DO Apr 04, 2021 16:49
[2021-04-04] MEDS ORDERED: LEVEMIR (INSULIN DETEMIR) 1 UNITS/0.01ML SC SCH (21:00)
--- NOTE | 2021-04-05 15:39 | ECHO ---
ECHOCARDIOGRAM DATE OF PROCEDURE: 04/04/2021 Age: 70 Gender: Female Height: 61 inches Weight: 194 pounds Body surface area: 1.87 m2 PATIENT LOCATION: Inpatient, progressive care unit (PCU), Room 3225. REFERRING PHYSICIAN: Anne Baker N.P. INDICATION: Cardiomegaly. MEASUREMENTS: 2D Measurements: RV - 3.7 cm LV - 4.3 cm Septum 1.3 cm Posterior wall 1.3 cm Aortic root 3.0 cm LA - 4.2 cm LVEF 50% Doppler Measurements: AV - 1.13 m/sec LVOT - off angle by more than 6% LVOT diameter 2.0 cm MV-E 94 Early mitral deceleration time 227 msec E prime medial 5.2 E prime lateral 9.4 Average E/E prime ratio 12.9/PCWP - 17.9 mmHg PV - 1.09 m/sec Pulmonary artery acceleration time 103 msec RVSP 37-42 mmHg IVC - 2.0 cm COMMENTS: Underlying atrial flutter with consistent ventricular paced rhythm at 50 beats per minute (bpm). Paced QRS complexes with left bundle branch block (LBBB) configuration. Technically difficult study in light of the patient's body habitus, but diagnostically useful information was obtained. M-mode and 2-dimensional echocardiography was performed with pulse, continuous wave, color flow and tissue Doppler studies. Mild concentric left ventricular hypertrophy with localized distal septal hypokinesis, likely related to right ventricular pacing. Other left ventricular wall segments appear to move normally with no more than minimal impairment of resting systolic function. Mildly dilated left atrium with current estimated mean left atrial pressure upper limits of normal to borderline increase. Normal right ventricular size and wall motion with mild to perhaps moderate pulmonary hypertension. Mildly dilated right atrium and inferior vena cava (IVC) upper limites of normal in size, with slightly reduced respiratory collapse suggestive of central venous pressure of perhaps 10-15 mmHg. Normal aortic dimensions. Mild aortic valvular sclerosis without functional abnormality. Normal appearing mitral valvular apparatus and leaflet excursion with no posterior systolic buckling. Unable to define any current valvular dysfunction. Normal appearing tricuspid valve with very mild insufficiency. Pacing leads can be visualized transversing right heart structures. No pericardial effusion.
[2021-04-05 17:07] LABS: Lyme Disease IgG/IgM Antibodie <0.91 ISR (0.00-0.90); Lyme Disease IgM Ab Quantitati <0.80 index (0.00-0.79)
== END 2021-04-04 16:45 | disposition home or self-care (01) | DRG 312 ==
LOC: M ED 14:20 → M ED INP 21:55 → M PCU 23:40
PROVIDERS: ADMIT Internal Medicine; ATTEND Internal Medicine
DX: I95.1 Orthostatic hypotension (principal); R45.851 Suicidal ideations; N13.30 Unspecified hydronephrosis; E11.9 Type 2 diabetes mellitus without complications; I11.0 Hypertensive heart disease with heart failure; E78.5 Hyperlipidemia, unspecified; E66.9 Obesity, unspecified; I25.10 Atherosclerotic heart disease of native coronary artery without angina pectoris; Z95.5 Presence of coronary angioplasty implant and graft; I48.91 Unspecified atrial fibrillation; Z95.0 Presence of cardiac pacemaker; I50.9 Heart failure, unspecified; Z86.73 Personal history of transient ischemic attack (TIA), and cerebral infarction without residual deficits; Z79.01 Long term (current) use of anticoagulants; Z79.899 Other long term (current) drug therapy; Z88.0 Allergy status to penicillin; Z88.2 Allergy status to sulfonamides; Z88.8 Allergy status to other drugs, medicaments and biological substances; R00.1 Bradycardia, unspecified; I27.20 Pulmonary hypertension, unspecified; Z20.822 Contact with and (suspected) exposure to COVID-19

== ENCOUNTER → 2021-04-10 | Outpatient (REF) | payer MEDICARE ==
[~2021-04-10] MED LIST changes: +CALC600T17 PO; +DICL1GEL3 TOP; +ESTR3TA PO; +FARX1TAB3 PO; +FOLI1TAB11 PO; +INSULADS SC; +POTA10TA17 PO; +SPIR-10 PO; +SYNT75TA PO; +TORS20TA2 PO
[2021-04-10 16:56] LABS: HEMOGLOBIN 13.9 g/dl (12.0-15.5); MEAN CORPUSCULAR HEMOGLOBIN 28.7 pg (27.0-33.0); MEAN CORPUSCULAR HGB CONC 33.1 g/dl (32.0-36.5); MEAN CORPUSCULAR VOLUME 86.6 fl (80.0-96.0); PLATELET COUNT, AUTOMATED 457 10^3/uL (150-450); RED BLOOD COUNT 4.85 10^6/uL (4.00-5.40); WHITE BLOOD COUNT 21.3 10^3/uL (4.0-10.0)
[2021-04-10 17:12] LABS: ALBUMIN 3.8 GM/DL (3.2-5.2); BILIRUBIN,TOTAL 0.5 MG/DL (0.2-1.0); CALCIUM LEVEL 9.9 MG/DL (8.8-10.2); CREATININE FOR GFR 1.09 MG/DL (0.55-1.30); GLOMERULAR FILTRATION RATE 53.1 (>45); POTASSIUM SERUM 4.2 MEQ/L (3.5-5.1); TOTAL PROTEIN 7.4 GM/DL (6.4-8.2)
[2021-04-10 17:52] LABS: BASOPHILS 14 % (0-1); EOSINOPHILS 2 % (0-3); LYMPHOCYTES 16 % (16-44); MONOCYTES 1 % (0-5); NEUTROPHILS 67 % (28-66); PLATELET ESTIMATE INCREASED (NORMAL)
== END ==
LOC: M SFHCCLAY 11:09
PROVIDERS: ATTEND Nurse Practitioner Family
DX: I50.43 Acute on chronic combined systolic (congestive) and diastolic (congestive) heart failure (principal); D72.828 Other elevated white blood cell count

== ENCOUNTER → 2021-04-23 | Outpatient (REF) | payer MEDICARE ==
[2021-04-23 13:01] LABS: BLOOD UREA NITROGEN 31 MG/DL (7-18); CALCIUM LEVEL 9.6 MG/DL (8.8-10.2); CARBON DIOXIDE LEVEL 28 MEQ/L (21-32); CHLORIDE LEVEL 101 MEQ/L (98-107); CREATININE FOR GFR 0.92 MG/DL (0.55-1.30); GLOMERULAR FILTRATION RATE > 60.0 (>45); GLUCOSE, FASTING 258 MG/DL (70-100); SODIUM LEVEL 136 MEQ/L (136-145)
== END ==
LOC: M SFHCCLAY 09:07
PROVIDERS: ATTEND Nurse Practitioner Family
DX: I50.43 Acute on chronic combined systolic (congestive) and diastolic (congestive) heart failure (principal)

== ENCOUNTER → 2021-04-30 | Outpatient (REF) | payer MEDICARE ==
[2021-04-30 13:02] LABS: ALBUMIN 3.3 GM/DL (3.2-5.2); BLOOD UREA NITROGEN 28 MG/DL (7-18); CALCIUM LEVEL 8.8 MG/DL (8.8-10.2); CARBON DIOXIDE LEVEL 27 MEQ/L (21-32); CHLORIDE LEVEL 103 MEQ/L (98-107); CREATININE FOR GFR 0.86 MG/DL (0.55-1.30); GLOMERULAR FILTRATION RATE > 60.0 (>45); GLUCOSE, FASTING 116 MG/DL (70-100); NT-PRO BNP 851 PG/ML (<125); PHOSPHORUS LEVEL 3.3 MG/DL (2.5-4.9); POTASSIUM SERUM 4.2 MEQ/L (3.5-5.1); SODIUM LEVEL 137 MEQ/L (136-145)
== END ==
LOC: M LAB REF 11:23 → M LABDRAWC 11:23
PROVIDERS: ATTEND Internal Medicine Cardiovascular Disease
DX: I11.0 Hypertensive heart disease with heart failure (principal); I50.32 Chronic diastolic (congestive) heart failure

== ENCOUNTER → 2021-05-30 | Outpatient (REF) | payer MEDICARE ==
[~2021-05-30] MED LIST changes: -KLOR10TA76 PO; +POTA-136 PO
[2021-05-30 12:27] LABS: BASO # 2.3 10^3/uL (0.0-0.2); BASO % 12.2 % (0.0-1.0); EOS # 0.7 10^3/uL (0.0-0.5); EOS % 3.9 % (0.0-3.0); HEMATOCRIT 38.3 % (36.0-47.0); HEMOGLOBIN 12.6 g/dl (12.0-15.5); LYMPH # 2.9 10^3/uL (1.5-5.0); LYMPH % 15.2 % (24.0-44.0); MEAN CORPUSCULAR HGB CONC 32.9 g/dl (32.0-36.5); MONO # 0.9 10^3/uL (0.0-0.8); MONO % 4.9 % (2.0-8.0); NEUTROPHILS # 9.9 10^3/uL (1.5-8.5); PLATELET COUNT, AUTOMATED 449 10^3/uL (150-450); RED BLOOD COUNT 4.35 10^6/uL (4.00-5.40); WHITE BLOOD COUNT 18.9 10^3/uL (4.0-10.0)
[2021-05-30 14:15] LABS: ALBUMIN 3.3 GM/DL (3.2-5.2); BLOOD UREA NITROGEN 34 MG/DL (7-18); CALCIUM LEVEL 9.4 MG/DL (8.8-10.2); CARBON DIOXIDE LEVEL 29 MEQ/L (21-32); CHLORIDE LEVEL 102 MEQ/L (98-107); GLOMERULAR FILTRATION RATE > 60.0 (>45); GLUCOSE, FASTING 184 MG/DL (70-100); NT-PRO BNP 833 PG/ML (<125); PHOSPHORUS LEVEL 3.9 MG/DL (2.5-4.9); SODIUM LEVEL 138 MEQ/L (136-145)
== END ==
LOC: M LABDRAWC 11:37
PROVIDERS: ATTEND Internal Medicine Cardiovascular Disease
DX: I50.32 Chronic diastolic (congestive) heart failure (principal)

== ENCOUNTER → 2021-06-20 | Outpatient (CLI) | payer MEDICARE ==
--- NOTE | 2021-06-21 18:22 | ECGEPIP ---
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
== END ==
LOC: M EKG 10:06
PROVIDERS: ATTEND Internal Medicine Medical Oncology
DX: C91.90 Lymphoid leukemia, unspecified not having achieved remission (principal)

== ENCOUNTER → 2021-06-24 | Outpatient (CLI) | payer MEDICARE ==
--- NOTE | 2021-06-24 09:55 | REP ---
INDICATION: SPLENOMAGALY. COMPARISON: CT without 04/03/2021 TECHNIQUE: Sonographic evaluation of the left upper quadrant with the standard grayscale and color imaging. FINDINGS: Spleen measures 7.5 x 4.7 x 8.4 cm giving a calculated splenic index of 296. (Normal range less than 480). No focal splenic lesion or adjacent fluid. The left kidney is 10.6 by 4 x 4.4 cm. There is continuation of the lower pole in a horseshoe kidney configuration as seen on CT 04/12. No definite stone, hydronephrosis or renal mass identified. No perinephric fluid. IMPRESSION: 1. No evidence of splenomegaly or focal splenic lesion. Splenic index 296 with normal range less than 480. No adjacent ascites. 2. Right kidney without mass or hydronephrosis and no stone. Does have horseshoe kidney configuration as seen on CT in 04/12. No other finding. <Electronically signed by Wayne Menendez > 06/24/21 [id number]
== END ==
LOC: M RAD 09:10
PROVIDERS: ATTEND Internal Medicine Medical Oncology
DX: R16.1 Splenomegaly, not elsewhere classified (principal)

== ENCOUNTER → 2021-07-02 | Outpatient (CLI) | payer MEDICARE ==
[~2021-07-02] MED LIST changes: +ALLO10TA PO; +BOSU100T PO; +LIDOCAINE 1% MDV 20ML VIAL As Ordered ONE; +LOPE1CAP5 PO; +PROC10TA4 PO
[2021-07-02 09:24] LABS: HEMATOCRIT 35.5 % (36.0-47.0); HEMOGLOBIN 11.8 g/dl (12.0-15.5); MEAN CORPUSCULAR HEMOGLOBIN 29.1 pg (27.0-33.0); MEAN CORPUSCULAR HGB CONC 33.2 g/dl (32.0-36.5); MEAN CORPUSCULAR VOLUME 87.4 fl (80.0-96.0); PLATELET COUNT, AUTOMATED 459 10^3/uL (150-450); RED BLOOD COUNT 4.06 10^6/uL (4.00-5.40); WHITE BLOOD COUNT 16.5 10^3/uL (4.0-10.0)
[2021-07-02 10:01] LABS: ATYPICAL LYMPH 1 % (0-5); EOSINOPHILS 1 % (0-3); LYMPHOCYTES 24 % (16-44); METAMYELOCYTES 2 % (0-0); MYELOCYTES 1 % (0-0); NEUTROPHILS 70 % (28-66); PROMYELOCYTES 1 % (0-0)
[2021-07-02 10:02] LABS: HYPOCHROMASIA 2+; PLATELET ESTIMATE NORMAL (NORMAL)
[2021-07-02 10:03] LABS: ANISOCYTOSIS 1+
[2021-07-02 10:50] VITALS: BP 152/76
--- NOTE | 2021-07-02 17:53 | REP ---
INDICATION: CML-BONE MARROW BIOPSY. COMPARISON: None. TECHNIQUE: The procedure is performed by CODI Sotelo, under the direct supervision of Dr. Ott. The risks and benefits of the procedure were explained to the patient and informed consent was obtained both orally and written. Directly prior to the start of the procedure, a formal timeout was done in the exam room. The left iliac crest was localized using CT guidance. Skin was prepped and draped in the usual sterile fashion. Ten ml of 1% lidocaine was used as a local anesthetic. FINDINGS: Using CT guidance an 11 gauge bone biopsy system was inserted. Approximately 6 mL of marrow fluid was obtained, as well as 1 core of bone. Patient tolerated the procedure well and there were no immediate complications. After the appropriate amount of monitored convalescence the patient was discharged from the department. IMPRESSION: CT-guided bone marrow aspiration and core bone biopsy. <Electronically signed by Salena Fernandez > 07/02/21 [id number] <Electronically signed by Bryant Ott > 07/02/21 [id number]
== END ==
LOC: M IRPRO 07:21
PROVIDERS: ATTEND Internal Medicine Medical Oncology
DX: C92.10 Chronic myeloid leukemia, BCR/ABL-positive, not having achieved remission (principal); Z79.01 Long term (current) use of anticoagulants

== ENCOUNTER 2021-08-11 15:19 | Emergency (ER) | payer MEDICARE ==
[~2021-08-11] VITALS: Ht 152.4 cm; Wt 88.6 kg
[~2021-08-11 15:19] MED LIST changes: -LIDOCAINE 1% MDV 20ML VIAL As Ordered ONE
--- NOTE | 2021-08-11 16:05 | REP ---
INDICATION: malaise COMPARISON: 04/03/2021 TECHNIQUE: Portable AP view of the chest FINDINGS: The mediastinum and cardiac silhouette are stable and cardiomegaly is again noted. The lung rodriguez demonstrate chronic changes without acute consolidation, effusion, or pneumothorax. Skeletal structures are intact. IMPRESSION: Cardiomegaly and chronic appearing changes. No acute cardiopulmonary process appreciated. <Electronically signed by Jesu Guardado > 08/11/21 [id number]
[2021-08-11 16:47] LABS: BASO # 0.2 10^3/uL (0.0-0.2); BASO % 1.7 % (0.0-1.0); EOS # 0.3 10^3/uL (0.0-0.5); EOS % 3.4 % (0.0-3.0); HEMATOCRIT 32.7 % (36.0-47.0); HEMOGLOBIN 10.8 g/dl (12.0-15.5); LYMPH # 1.8 10^3/uL (1.5-5.0); LYMPH % 19.2 % (24.0-44.0); MEAN CORPUSCULAR HEMOGLOBIN 29.2 pg (27.0-33.0); MEAN CORPUSCULAR VOLUME 88.4 fl (80.0-96.0); MONO # 0.5 10^3/uL (0.0-0.8); MONO % 5.4 % (2.0-8.0); NEUTROPHILS # 6.5 10^3/uL (1.5-8.5); NEUTROPHILS % 70.1 % (36.0-66.0); PLATELET COUNT, AUTOMATED 165 10^3/uL (150-450); WHITE BLOOD COUNT 9.2 10^3/uL (4.0-10.0)
[2021-08-11 16:58] LABS: INR 1.18; PROTHROMBIN TIME 15.5 SECONDS (12.7-14.5)
[2021-08-11 16:59] LABS: PARTIAL THROMBOPLASTIN TIME 32.7 SECONDS (25.9-37.0)
[2021-08-11 17:06] LABS: ALBUMIN 3.5 GM/DL (3.2-5.2); ALT/SGPT 39 U/L (12-78); BILIRUBIN,DIRECT < 0.1 MG/DL (0.0-0.2); BILIRUBIN,TOTAL 0.6 MG/DL (0.2-1.0); BLOOD UREA NITROGEN 27 MG/DL (7-18); CALCIUM LEVEL 8.6 MG/DL (8.8-10.2); CARBON DIOXIDE LEVEL 26 MEQ/L (21-32); CHLORIDE LEVEL 105 MEQ/L (98-107); CREATININE FOR GFR 0.92 MG/DL (0.55-1.30); GLOMERULAR FILTRATION RATE > 60.0 (>45); GLUCOSE, FASTING 130 MG/DL (70-100); LIPASE 74 U/L (73-393); NT-PRO BNP 1066 PG/ML (<125); POTASSIUM SERUM 4.6 MEQ/L (3.5-5.1); SODIUM LEVEL 137 MEQ/L (136-145); TOTAL PROTEIN 6.9 GM/DL (6.4-8.2)
[2021-08-11] MEDS ORDERED: GI COCKTAIL 50ML BTL(HYOSCYAMINE/MAALOX/LIDOCAINE VISCOUS)(1:3:1) PO ONE (17:40)
[2021-08-11] MEDS ORDERED: CEFDINIR 300 MG CAP (OMNICEF) PO ONE (17:55)
[2021-08-11] MEDS ORDERED: ISOVUE-370 76% 100ML VIAL As Ordered ONE (18:22)
--- NOTE | 2021-08-11 19:17 | ECGEPIP ---
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
[2021-08-11 19:30] VITALS: BP 159/82
--- NOTE | 2021-08-11 19:41 | REPVR ---
PROCEDURE INFORMATION: Exam: CT Abdomen And Pelvis With Contrast Exam date and time: 08/11/2021 6:25 PM Age: 70 years old Clinical indication: Abdominal pain TECHNIQUE: Imaging protocol: Computed tomography of the abdomen and pelvis with contrast. Radiation optimization: All CT scans at this facility use at least one of these dose optimization techniques: automated exposure control; mA and/or kV adjustment per patient size (includes targeted exams where dose is matched to clinical indication); or iterative reconstruction. Contrast material: ISOVUE 370; Contrast volume: 100 ml; Contrast route: INTRAVENOUS (IV); COMPARISON: CT ABD PELVIS W/O CONTRAST 04/03/2021 5:56 PM FINDINGS: Lungs: Bibasilar atelectasis. Liver: There is a diffuse decrease in hepatic parenchymal density, consistent with steatosis. Gallbladder and bile ducts: There are gallstones present. No evidence of cholecystitis demonstrated. Pancreas: Normal. No ductal dilation. Spleen: Normal. No splenomegaly. Adrenal glands: Normal. No mass. Kidneys and ureters: Redemonstration of a horseshoe kidney with a stable simple cyst on the right measuring 1.9 cm. Redemonstration of a duplicated collecting system within the right moiety. Stable dilatation of the renal pelves bilaterally and calyces on the right. No evidence of obstructing mass or ureteral calculi. Stomach and bowel: Unremarkable. No obstruction. No mucosal thickening. Appendix: No evidence of appendicitis. Intraperitoneal space: Unremarkable. No free air. No significant fluid collection. Vasculature: The aortoiliac vessels demonstrate mild atherosclerotic calcification. Lymph nodes: Unremarkable. No enlarged lymph nodes. Urinary bladder: Unremarkable as visualized. Reproductive: Unremarkable as visualized. Bones/joints: Compression deformities at L1, L2, and L5, stable in comparison to the prior study of 04/03/2021. Moderate central spinal stenosis L4-L5. Status post left hip arthroplasty. There is thickening of the bladder wall with perivesicular inflammatory changes, partially obscured by beam hardening artifact generated from the left hip prosthesis, findings consistent with acute cystitis. Clinical correlation to exclude neoplasm suggested. Soft tissues: Unremarkable. IMPRESSION: 1. There are gallstones present. No evidence of cholecystitis demonstrated. 2. There is a diffuse decrease in hepatic parenchymal density, consistent with steatosis. 3. Redemonstration of a horseshoe kidney with a stable simple cyst on the right measuring 1.9 cm. Redemonstration of a duplicated collecting system within the right moiety. Stable dilatation of the renal pelves bilaterally and calyces on the right. No evidence of obstructing mass or ureteral calculi. 4. There is thickening of the bladder wall with perivesicular inflammatory changes, partially obscured by beam hardening artifact generated from the left hip prosthesis, findings consistent with acute cystitis. Clinical correlation to exclude neoplasm suggested. Electronically signed by: Uriel Torre On 08/11/2021 19:40:39 PM
[2021-08-11] MEDS ORDERED: CEFD1CAP8 PO (19:53)
[2021-08-12 10:36] LABS: URIC ACID 6.7 MG/DL (2.6-6.0)
== END 2021-08-11 20:02 | disposition home or self-care (01) ==
LOC: EDBD 15:19 → M ED 15:19
DX: N30.90 Cystitis, unspecified without hematuria (principal); E11.9 Type 2 diabetes mellitus without complications; I11.0 Hypertensive heart disease with heart failure; I50.9 Heart failure, unspecified; I48.91 Unspecified atrial fibrillation; E78.5 Hyperlipidemia, unspecified; I25.10 Atherosclerotic heart disease of native coronary artery without angina pectoris; Z86.73 Personal history of transient ischemic attack (TIA), and cerebral infarction without residual deficits; Z95.0 Presence of cardiac pacemaker; Z79.899 Other long term (current) drug therapy; Z79.01 Long term (current) use of anticoagulants; Z79.4 Long term (current) use of insulin; Z88.0 Allergy status to penicillin; Z88.1 Allergy status to other antibiotic agents; Z88.2 Allergy status to sulfonamides; Z88.8 Allergy status to other drugs, medicaments and biological substances
CPT/HCPCS: 36415; 71045; 74177; 80048; 80076; 81001; 83605; 83690; 83880; 84484; 84550; 85025; 85610; 85730; 87040; 87088; 87186; 87798; 93005; 93041; 99285; Q9967

== ENCOUNTER → 2021-08-18 | Outpatient (REF) | payer MEDICARE ==
[~2021-08-18] MED LIST changes: -AMIO200T3 PO; +AMIO200T49 PO; -CEFD1CAP8 PO; +CEFD300C41 PO; -LISI-898; -LISI-898 PO; +LISI5TAB11; +LISI5TAB11 PO; -PROC10TA4 PO; +PROC10TA5 PO
[2021-08-18 16:13] LABS: BASO # 0.1 10^3/uL (0.0-0.2); BASO % 1.4 % (0.0-1.0); EOS # 0.3 10^3/uL (0.0-0.5); EOS % 5.4 % (0.0-3.0); HEMATOCRIT 32.8 % (36.0-47.0); HEMOGLOBIN 10.7 g/dl (12.0-15.5); LYMPH # 1.2 10^3/uL (1.5-5.0); LYMPH % 19.6 % (24.0-44.0); MEAN CORPUSCULAR HEMOGLOBIN 29.2 pg (27.0-33.0); MEAN CORPUSCULAR HGB CONC 32.6 g/dl (32.0-36.5); MEAN CORPUSCULAR VOLUME 89.6 fl (80.0-96.0); MONO # 0.4 10^3/uL (0.0-0.8); MONO % 7.3 % (2.0-8.0); NEUTROPHILS # 3.9 10^3/uL (1.5-8.5); PLATELET COUNT, AUTOMATED 133 10^3/uL (150-450); RED BLOOD COUNT 3.66 10^6/uL (4.00-5.40); WHITE BLOOD COUNT 5.9 10^3/uL (4.0-10.0)
[2021-08-18 16:43] LABS: ALBUMIN 3.7 GM/DL (3.2-5.2); BILIRUBIN,TOTAL 0.3 MG/DL (0.2-1.0); CALCIUM LEVEL 8.6 MG/DL (8.8-10.2); CREATININE FOR GFR 1.02 MG/DL (0.55-1.30); GLOMERULAR FILTRATION RATE 57.4 (>45)
== END ==
LOC: M LAB REF 15:36
PROVIDERS: ATTEND Internal Medicine Medical Oncology
DX: I50.43 Acute on chronic combined systolic (congestive) and diastolic (congestive) heart failure (principal); E03.9 Hypothyroidism, unspecified; D72.828 Other elevated white blood cell count; E11.9 Type 2 diabetes mellitus without complications; R42 Dizziness and giddiness; C92.10 Chronic myeloid leukemia, BCR/ABL-positive, not having achieved remission; M25.551 Pain in right hip

== ENCOUNTER → 2021-08-18 | Outpatient (REF) | payer MEDICARE ==
[2021-08-18 16:54] LABS: ALBUMIN 3.7 GM/DL (3.2-5.2); BILIRUBIN,TOTAL 0.3 MG/DL (0.2-1.0); CALCIUM LEVEL 8.6 MG/DL (8.8-10.2); CREATININE FOR GFR 0.99 MG/DL (0.55-1.30); FREE T4 1.13 NG/DL (0.76-1.46); GLOMERULAR FILTRATION RATE 59.4 (>45); POTASSIUM SERUM 3.9 MEQ/L (3.5-5.1); THYROID STIMULATING HORMONE 9.79 uIU/ML (0.358-3.740); TOTAL PROTEIN 6.9 GM/DL (6.4-8.2)
== END ==
LOC: M SFHCCLAY 11:14
PROVIDERS: ATTEND Nurse Practitioner Family
DX: E03.9 Hypothyroidism, unspecified (principal); E11.9 Type 2 diabetes mellitus without complications

== ENCOUNTER → 2021-10-13 | Outpatient (REF) | payer MEDICARE ==
[2021-10-13 11:42] LABS: BASO # 0.1 10^3/uL (0.0-0.2); BASO % 0.8 % (0.0-1.0); EOS # 0.2 10^3/uL (0.0-0.5); EOS % 2.4 % (0.0-3.0); HEMATOCRIT 32.8 % (36.0-47.0); HEMOGLOBIN 10.8 g/dl (12.0-15.5); LYMPH # 1.3 10^3/uL (1.5-5.0); LYMPH % 19.5 % (24.0-44.0); MEAN CORPUSCULAR HEMOGLOBIN 29.4 pg (27.0-33.0); MEAN CORPUSCULAR HGB CONC 32.9 g/dl (32.0-36.5); MEAN CORPUSCULAR VOLUME 89.4 fl (80.0-96.0); MONO # 0.6 10^3/uL (0.0-0.8); MONO % 9.3 % (2.0-8.0); NEUTROPHILS # 4.4 10^3/uL (1.5-8.5); NEUTROPHILS % 67.8 % (36.0-66.0); PLATELET COUNT, AUTOMATED 159 10^3/uL (150-450); RED BLOOD COUNT 3.67 10^6/uL (4.00-5.40); WHITE BLOOD COUNT 6.6 10^3/uL (4.0-10.0)
[2021-10-13 12:15] LABS: ALBUMIN 3.7 GM/DL (3.2-5.2); CALCIUM LEVEL 8.6 MG/DL (8.8-10.2); CREATININE FOR GFR 1.06 MG/DL (0.55-1.30); GLOMERULAR FILTRATION RATE 54.7 (>45); PHOSPHORUS LEVEL 3.4 MG/DL (2.5-4.9); POTASSIUM SERUM 4.3 MEQ/L (3.5-5.1)
[2021-10-16 13:30] LABS: BILIRUBIN,DIRECT 0.1 MG/DL (0.0-0.2); BILIRUBIN,TOTAL 0.5 MG/DL (0.2-1.0); TOTAL PROTEIN 6.7 GM/DL (6.4-8.2)
== END ==
LOC: M LABDRAWC 11:21
PROVIDERS: ATTEND Internal Medicine Cardiovascular Disease
DX: I50.32 Chronic diastolic (congestive) heart failure (principal); I47.1 Supraventricular tachycardia

== ENCOUNTER → 2021-11-04 | Outpatient (CLI) | payer MEDICARE ==
[~2021-11-04] MED LIST changes: +ISOVUE-300 61% 50ML VIAL As Ordered ONE; +LIDOCAINE 1% MDV 20ML VIAL As Ordered ONE; +methylPREDNISolone SUSP 40MG/ML 1ML VIAL (DEPO MEDROL) As Ordered ONE
== END ==
LOC: M RADPRO 10:30
PROVIDERS: ATTEND Physician Assistant Surgical
DX: M16.11 Unilateral primary osteoarthritis, right hip (principal)
CPT/HCPCS: 20610; 77002; J1030; Q9967

== ENCOUNTER → 2021-11-17 | Outpatient (REF) | payer MEDICARE ==
[~2021-11-17] MED LIST changes: -ISOVUE-300 61% 50ML VIAL As Ordered ONE; -LIDOCAINE 1% MDV 20ML VIAL As Ordered ONE; -methylPREDNISolone SUSP 40MG/ML 1ML VIAL (DEPO MEDROL) As Ordered ONE
[2021-11-17 15:54] LABS: BASO # 0.1 10^3/uL (0.0-0.2); BASO % 0.6 % (0.0-1.0); EOS # 0.1 10^3/uL (0.0-0.5); EOS % 0.8 % (0.0-3.0); HEMATOCRIT 33.1 % (36.0-47.0); LYMPH # 1.3 10^3/uL (1.5-5.0); LYMPH % 13.1 % (24.0-44.0); MEAN CORPUSCULAR HEMOGLOBIN 28.9 pg (27.0-33.0); MEAN CORPUSCULAR HGB CONC 33.2 g/dl (32.0-36.5); MEAN CORPUSCULAR VOLUME 87.1 fl (80.0-96.0); MONO # 0.8 10^3/uL (0.0-0.8); MONO % 7.5 % (2.0-8.0); NEUTROPHILS # 7.7 10^3/uL (1.5-8.5); NEUTROPHILS % 77.7 % (36.0-66.0); PLATELET COUNT, AUTOMATED 192 10^3/uL (150-450)
[2021-11-17 16:19] LABS: ALBUMIN 3.6 GM/DL (3.2-5.2); BILIRUBIN,TOTAL 0.7 MG/DL (0.2-1.0); CALCIUM LEVEL 9.1 MG/DL (8.8-10.2); CREATININE FOR GFR 1.13 MG/DL (0.55-1.30); FREE T4 1.38 NG/DL (0.76-1.46); GLOMERULAR FILTRATION RATE 50.8 (>45); POTASSIUM SERUM 3.9 MEQ/L (3.5-5.1); THYROID STIMULATING HORMONE 1.97 uIU/ML (0.358-3.740); TOTAL PROTEIN 7.1 GM/DL (6.4-8.2)
== END ==
LOC: M LABDRAWC 15:31
PROVIDERS: ATTEND Internal Medicine Medical Oncology
DX: C95.90 Leukemia, unspecified not having achieved remission (principal)

== ENCOUNTER → 2021-11-17 | Outpatient (REF) | payer MEDICARE ==
[2021-11-17 15:54] LABS: BASO # 0.1 10^3/uL (0.0-0.2); BASO % 0.5 % (0.0-1.0); EOS # 0.1 10^3/uL (0.0-0.5); EOS % 0.9 % (0.0-3.0); HEMATOCRIT 33.6 % (36.0-47.0); HEMOGLOBIN 11.2 g/dl (12.0-15.5); LYMPH # 1.3 10^3/uL (1.5-5.0); MEAN CORPUSCULAR HEMOGLOBIN 28.8 pg (27.0-33.0); MEAN CORPUSCULAR HGB CONC 33.3 g/dl (32.0-36.5); MEAN CORPUSCULAR VOLUME 86.4 fl (80.0-96.0); MONO # 0.8 10^3/uL (0.0-0.8); MONO % 7.8 % (2.0-8.0); NEUTROPHILS # 7.7 10^3/uL (1.5-8.5); NEUTROPHILS % 77.5 % (36.0-66.0); PLATELET COUNT, AUTOMATED 193 10^3/uL (150-450); RED BLOOD COUNT 3.89 10^6/uL (4.00-5.40); WHITE BLOOD COUNT 9.9 10^3/uL (4.0-10.0)
[2021-11-17 16:24] LABS: FREE T4 1.4 NG/DL (0.76-1.46); THYROID STIMULATING HORMONE 2.11 uIU/ML (0.358-3.740)
== END ==
LOC: M SFHCCLAY 10:10
PROVIDERS: ATTEND Nurse Practitioner Family
DX: E03.9 Hypothyroidism, unspecified (principal); E11.9 Type 2 diabetes mellitus without complications; M25.476 Effusion, unspecified foot

== ENCOUNTER 2021-12-30 10:06 | Emergency (ER) | payer MEDICARE ==
[~2021-12-30] VITALS: Ht 152.4 cm; Wt 86.4 kg
[2021-12-30] MEDS ORDERED: NS 1,000 ML IV ONE (10:25)
[2021-12-30 11:16] LABS: BASO # 0.1 10^3/uL (0.0-0.2); BASO % 0.6 % (0.0-1.0); EOS # 0.1 10^3/uL (0.0-0.5); EOS % 0.8 % (0.0-3.0); HEMATOCRIT 30.6 % (36.0-47.0); HEMOGLOBIN 10.1 g/dl (12.0-15.5); LYMPH # 0.6 10^3/uL (1.5-5.0); LYMPH % 7.9 % (24.0-44.0); MEAN CORPUSCULAR HEMOGLOBIN 27.8 pg (27.0-33.0); MEAN CORPUSCULAR VOLUME 84.3 fl (80.0-96.0); MONO # 0.6 10^3/uL (0.0-0.8); MONO % 7.4 % (2.0-8.0); NEUTROPHILS # 6.5 10^3/uL (1.5-8.5); NEUTROPHILS % 82.8 % (36.0-66.0); PLATELET COUNT, AUTOMATED 130 10^3/uL (150-450); RED BLOOD COUNT 3.63 10^6/uL (4.00-5.40); WHITE BLOOD COUNT 7.9 10^3/uL (4.0-10.0)
[2021-12-30 11:44] LABS: ALBUMIN 3.5 GM/DL (3.2-5.2); BILIRUBIN,DIRECT 0.2 MG/DL (0.0-0.2); BILIRUBIN,TOTAL 0.6 MG/DL (0.2-1.0); C REACTIVE PROTEIN QUANTITATIV 0.88 MG/DL (0.00-0.30); CALCIUM LEVEL 8.5 MG/DL (8.8-10.2); CREATININE FOR GFR 1.17 MG/DL (0.55-1.30); GLOMERULAR FILTRATION RATE 48.8 (>45); MAGNESIUM LEVEL 2.4 MG/DL (1.8-2.4); POTASSIUM SERUM 4.4 MEQ/L (3.5-5.1)
[2021-12-30 11:52] LABS: INR 1.07; PROTHROMBIN TIME 14.3 SECONDS (12.7-14.5)
[2021-12-30 11:53] LABS: PARTIAL THROMBOPLASTIN TIME 26.1 SECONDS (25.9-37.0)
[2021-12-30] MEDS ORDERED: NS 1,000 ML IV SCH (14:25)
[2021-12-30] MEDS ORDERED: BEBTELOVIMAB 175MG 2ML VIAL (EUA) IV ONE (14:25)
[2021-12-30] MEDS ORDERED: ALBUTEROL 90 MCG/ACT 8GM HFA INHALER INH PRN (14:25)
[2021-12-30] MEDS ORDERED: methylPREDNISolone 125MG 2ML VIAL IV PRN (14:25)
[2021-12-30] MEDS ORDERED: EPINEPHrine INJ 1 MG/ML 1ML AMP IM PRN (14:25)
[2021-12-30] MEDS ORDERED: ACETAMINOPHEN TAB 650MG DOSE (2X325MG) PO PRN (14:25)
[2021-12-30] MEDS ORDERED: diphenhydrAMINE 50MG/ML VIAL (J1200) IV PRN (14:25)
[2021-12-30] MEDS ORDERED: ALBUTEROL SULFATE 2.5 MG/0.5 ML INH NEB SOLN INH PRN (14:25)
[2021-12-30] MEDS ORDERED: NYST1POW9 TOP (14:32)
[2021-12-30 16:05] VITALS: BP 174/76
[2022-01-01] MEDS ORDERED: BOSU100T PO (16:22)
== END 2021-12-30 16:20 | disposition home or self-care (01) ==
LOC: EDBD 10:06 → M ED 10:06
DX: U07.1 COVID-19 (principal); R11.2 Nausea with vomiting, unspecified; E11.9 Type 2 diabetes mellitus without complications; I50.9 Heart failure, unspecified; Z86.718 Personal history of other venous thrombosis and embolism; Q96.9 Turner's syndrome, unspecified; Z88.0 Allergy status to penicillin; Z88.2 Allergy status to sulfonamides; Z88.8 Allergy status to other drugs, medicaments and biological substances; Z79.899 Other long term (current) drug therapy; Z79.01 Long term (current) use of anticoagulants
CPT/HCPCS: 80048; 80076; 82728; 83615; 83690; 83735; 84145; 84484; 85025; 85384; 85610; 85730; 86140; 96361; 99284; M0222

== ENCOUNTER → 2022-01-01 | Outpatient (CLI) | payer MEDICARE ==
[~2022-01-01] MED LIST changes: +NYST1POW9 TOP
== END ==
LOC: M CLY 11:37
PROVIDERS: ATTEND Physician Assistant
DX: R05.9 Cough, unspecified (principal)

== ENCOUNTER → 2022-01-05 | Outpatient (REF) | payer MEDICARE ==
[2022-01-05 11:56] LABS: BASO # 0.1 10^3/uL (0.0-0.2); BASO % 0.8 % (0.0-1.0); EOS # 0.2 10^3/uL (0.0-0.5); EOS % 2.4 % (0.0-3.0); HEMATOCRIT 30.8 % (36.0-47.0); HEMOGLOBIN 10.1 g/dl (12.0-15.5); LYMPH % 13.7 % (24.0-44.0); MEAN CORPUSCULAR HEMOGLOBIN 28.2 pg (27.0-33.0); MEAN CORPUSCULAR HGB CONC 32.8 g/dl (32.0-36.5); MONO # 0.8 10^3/uL (0.0-0.8); MONO % 11.7 % (2.0-8.0); NEUTROPHILS # 5.1 10^3/uL (1.5-8.5); NEUTROPHILS % 70.8 % (36.0-66.0); PLATELET COUNT, AUTOMATED 230 10^3/uL (150-450); RED BLOOD COUNT 3.58 10^6/uL (4.00-5.40); WHITE BLOOD COUNT 7.2 10^3/uL (4.0-10.0)
[2022-01-05 12:21] LABS: ALBUMIN 3.5 GM/DL (3.2-5.2); BILIRUBIN,TOTAL 0.5 MG/DL (0.2-1.0); CALCIUM LEVEL 9.1 MG/DL (8.8-10.2); CREATININE FOR GFR 1.08 MG/DL (0.55-1.30); GLOMERULAR FILTRATION RATE 53.5 (>45); POTASSIUM SERUM 4.4 MEQ/L (3.5-5.1); TOTAL PROTEIN 7.1 GM/DL (6.4-8.2)
== END ==
LOC: M LABDRAWC 11:17
PROVIDERS: ATTEND Internal Medicine Medical Oncology
DX: C91.10 Chronic lymphocytic leukemia of B-cell type not having achieved remission (principal)

== ENCOUNTER → 2022-01-12 | Outpatient (REF) | payer MEDICARE ==
[2022-01-12 11:52] LABS: BASO # 0.1 10^3/uL (0.0-0.2); BASO % 1.4 % (0.0-1.0); EOS # 0.2 10^3/uL (0.0-0.5); EOS % 3.6 % (0.0-3.0); HEMATOCRIT 30.3 % (36.0-47.0); LYMPH # 1.2 10^3/uL (1.5-5.0); LYMPH % 20.8 % (24.0-44.0); MEAN CORPUSCULAR HEMOGLOBIN 28.5 pg (27.0-33.0); MEAN CORPUSCULAR VOLUME 86.3 fl (80.0-96.0); MONO # 0.7 10^3/uL (0.0-0.8); MONO % 12.5 % (2.0-8.0); NEUTROPHILS # 3.6 10^3/uL (1.5-8.5); NEUTROPHILS % 61.4 % (36.0-66.0); PLATELET COUNT, AUTOMATED 247 10^3/uL (150-450); RED BLOOD COUNT 3.51 10^6/uL (4.00-5.40); WHITE BLOOD COUNT 5.9 10^3/uL (4.0-10.0)
[2022-01-12 12:05] LABS: ALBUMIN 3.6 GM/DL (3.2-5.2); BILIRUBIN,TOTAL 0.7 MG/DL (0.2-1.0); CALCIUM LEVEL 8.9 MG/DL (8.8-10.2); CREATININE FOR GFR 1.13 MG/DL (0.55-1.30); GLOMERULAR FILTRATION RATE 50.8 (>45); POTASSIUM SERUM 3.9 MEQ/L (3.5-5.1); TOTAL PROTEIN 7.3 GM/DL (6.4-8.2)
== END ==
LOC: M LABDRAWC 11:20
PROVIDERS: ATTEND Internal Medicine Cardiovascular Disease
DX: D64.9 Anemia, unspecified (principal); I11.0 Hypertensive heart disease with heart failure; I25.10 Atherosclerotic heart disease of native coronary artery without angina pectoris; I50.32 Chronic diastolic (congestive) heart failure

== ENCOUNTER → 2022-01-26 | Outpatient (REF) | payer MEDICARE ==
[~2022-01-26] MED LIST changes: +EUTH88TA PO
[2022-01-26 16:06] LABS: ALBUMIN 3.7 GM/DL (3.2-5.2); BILIRUBIN,TOTAL 0.4 MG/DL (0.2-1.0); CALCIUM LEVEL 9.7 MG/DL (8.8-10.2); CREATININE FOR GFR 1.08 MG/DL (0.55-1.30); GLOMERULAR FILTRATION RATE 53.5 (>45); POTASSIUM SERUM 4.2 MEQ/L (3.5-5.1); TOTAL PROTEIN 7.3 GM/DL (6.4-8.2)
[2022-01-26 16:08] LABS: BASO # 0.1 10^3/uL (0.0-0.2); BASO % 1.1 % (0.0-1.0); EOS # 0.2 10^3/uL (0.0-0.5); EOS % 2.4 % (0.0-3.0); HEMATOCRIT 30.5 % (36.0-47.0); HEMOGLOBIN 10.2 g/dl (12.0-15.5); LYMPH # 1.8 10^3/uL (1.5-5.0); LYMPH % 22.6 % (24.0-44.0); MEAN CORPUSCULAR HEMOGLOBIN 28.9 pg (27.0-33.0); MEAN CORPUSCULAR HGB CONC 33.4 g/dl (32.0-36.5); MEAN CORPUSCULAR VOLUME 86.4 fl (80.0-96.0); MONO # 0.9 10^3/uL (0.0-0.8); MONO % 11.8 % (2.0-8.0); NEUTROPHILS # 4.8 10^3/uL (1.5-8.5); NEUTROPHILS % 61.5 % (36.0-66.0); PLATELET COUNT, AUTOMATED 182 10^3/uL (150-450); RED BLOOD COUNT 3.53 10^6/uL (4.00-5.40); WHITE BLOOD COUNT 7.9 10^3/uL (4.0-10.0)
== END ==
LOC: M LABDRAWC 15:39
PROVIDERS: ATTEND Internal Medicine Cardiovascular Disease
DX: I47.1 Supraventricular tachycardia (principal); I50.32 Chronic diastolic (congestive) heart failure; I25.10 Atherosclerotic heart disease of native coronary artery without angina pectoris; I11.0 Hypertensive heart disease with heart failure

== ENCOUNTER → 2022-02-12 | Outpatient (REF) | payer MEDICARE ==
[2022-02-12 11:44] LABS: BASO # 0.1 10^3/uL (0.0-0.2); EOS # 0.2 10^3/uL (0.0-0.5); EOS % 2.7 % (0.0-3.0); HEMATOCRIT 33.5 % (36.0-47.0); HEMOGLOBIN 10.9 g/dl (12.0-15.5); LYMPH # 1.4 10^3/uL (1.5-5.0); LYMPH % 22.5 % (24.0-44.0); MEAN CORPUSCULAR HEMOGLOBIN 28.2 pg (27.0-33.0); MEAN CORPUSCULAR HGB CONC 32.5 g/dl (32.0-36.5); MEAN CORPUSCULAR VOLUME 86.6 fl (80.0-96.0); MONO # 0.7 10^3/uL (0.0-0.8); MONO % 12.2 % (2.0-8.0); NEUTROPHILS # 3.7 10^3/uL (1.5-8.5); NEUTROPHILS % 61.4 % (36.0-66.0); PLATELET COUNT, AUTOMATED 210 10^3/uL (150-450); RED BLOOD COUNT 3.87 10^6/uL (4.00-5.40)
[2022-02-12 12:59] LABS: ALBUMIN 3.6 GM/DL (3.2-5.2); ALT/SGPT 19 U/L (12-78); BILIRUBIN,TOTAL 0.6 MG/DL (0.2-1.0); BLOOD UREA NITROGEN 26 MG/DL (7-18); CALCIUM LEVEL 9.8 MG/DL (8.8-10.2); CARBON DIOXIDE LEVEL 26 MEQ/L (21-32); CHLORIDE LEVEL 104 MEQ/L (98-107); CREATININE FOR GFR 0.87 MG/DL (0.55-1.30); FERRITIN 216 NG/ML (8-252); GLOMERULAR FILTRATION RATE > 60.0 (>45); GLUCOSE, FASTING 139 MG/DL (70-100); IRON (FE) 60 UG/DL (50-170); PERCENT SATURATION 18.7 % (13.2-45.0); POTASSIUM SERUM 4.2 MEQ/L (3.5-5.1); SODIUM LEVEL 139 MEQ/L (136-145); TOTAL IRON BINDING CAPACITY 321 UG/DL (250-450)
== END ==
LOC: M LAB REF 11:27
PROVIDERS: ATTEND Internal Medicine Medical Oncology
DX: C93.10 Chronic myelomonocytic leukemia not having achieved remission (principal)

== ENCOUNTER → 2022-02-18 | Outpatient (REF) | payer MEDICARE ==
[2022-02-18 16:32] LABS: HEMOGLOBIN A1c 9.7 %
== END ==
LOC: M SFHCCLAY 09:55
PROVIDERS: ATTEND Nurse Practitioner Family
DX: E11.9 Type 2 diabetes mellitus without complications (principal)

== ENCOUNTER → 2022-02-18 | Outpatient (CLI) | payer MEDICARE | LOC: M CLY 10:04 | PROVIDERS: ATTEND Nurse Practitioner Family | DX: J90 Pleural effusion, not elsewhere classified (principal) ==

== ENCOUNTER → 2022-03-13 | Outpatient (CLI) | payer MEDICARE | LOC: M RAD 08:58 | PROVIDERS: ATTEND Nurse Practitioner Family | DX: K80.20 Calculus of gallbladder without cholecystitis without obstruction (principal) ==

== ENCOUNTER → 2022-03-18 | Outpatient (REF) | payer MEDICARE ==
[2022-03-18 16:15] LABS: BASO # 0.4 10^3/uL (0.0-0.2); BASO % 5.3 % (0.0-1.0); EOS # 0.2 10^3/uL (0.0-0.5); EOS % 2.4 % (0.0-3.0); HEMATOCRIT 35.4 % (36.0-47.0); HEMOGLOBIN 11.5 g/dl (12.0-15.5); LYMPH # 1.6 10^3/uL (1.5-5.0); LYMPH % 21.3 % (24.0-44.0); MEAN CORPUSCULAR HEMOGLOBIN 27.6 pg (27.0-33.0); MEAN CORPUSCULAR HGB CONC 32.5 g/dl (32.0-36.5); MEAN CORPUSCULAR VOLUME 84.9 fl (80.0-96.0); MONO # 0.7 10^3/uL (0.0-0.8); MONO % 9.4 % (2.0-8.0); NEUTROPHILS # 4.6 10^3/uL (1.5-8.5); NEUTROPHILS % 60.7 % (36.0-66.0); PLATELET COUNT, AUTOMATED 312 10^3/uL (150-450); RED BLOOD COUNT 4.17 10^6/uL (4.00-5.40); WHITE BLOOD COUNT 7.6 10^3/uL (4.0-10.0)
[2022-03-18 16:34] LABS: ALBUMIN 3.5 GM/DL (3.2-5.2); ALT/SGPT 17 U/L (12-78); BILIRUBIN,TOTAL 0.4 MG/DL (0.2-1.0); BLOOD UREA NITROGEN 23 MG/DL (7-18); CALCIUM LEVEL 9.6 MG/DL (8.8-10.2); CARBON DIOXIDE LEVEL 27 MEQ/L (21-32); CHLORIDE LEVEL 106 MEQ/L (98-107); CREATININE FOR GFR 0.81 MG/DL (0.55-1.30); GLOMERULAR FILTRATION RATE > 60.0 (>45); GLUCOSE, FASTING 148 MG/DL (70-100); POTASSIUM SERUM 4.5 MEQ/L (3.5-5.1); SODIUM LEVEL 140 MEQ/L (136-145); TOTAL PROTEIN 6.8 GM/DL (6.4-8.2)
== END ==
LOC: M LABDRAWC 15:52
PROVIDERS: ATTEND Internal Medicine Medical Oncology
DX: D72.829 Elevated white blood cell count, unspecified (principal)

== ENCOUNTER 2022-04-10 12:11 | Emergency (ER) | payer MEDICARE ==
[~2022-04-10 12:11] MED LIST changes: +POTA-150 PO; -POTA10TA17 PO
[2022-04-10] MEDS ORDERED: ONDANSETRON 4MG 2ML VIAL IV ONE (14:40)
[2022-04-10] MEDS ORDERED: MORPHINE 2 MG/ML 1ML VIAL IV PRN (14:40)
[2022-04-10 15:09] LABS: BASO # 0.7 10^3/uL (0.0-0.2); BASO % 5.8 % (0.0-1.0); EOS # 0.1 10^3/uL (0.0-0.5); HEMATOCRIT 38.5 % (36.0-47.0); HEMOGLOBIN 12.7 g/dl (12.0-15.5); LYMPH # 2.1 10^3/uL (1.5-5.0); LYMPH % 17.1 % (24.0-44.0); MEAN CORPUSCULAR HEMOGLOBIN 28.1 pg (27.0-33.0); MEAN CORPUSCULAR VOLUME 85.2 fl (80.0-96.0); MONO # 0.7 10^3/uL (0.0-0.8); NEUTROPHILS # 8.5 10^3/uL (1.5-8.5); NEUTROPHILS % 68.7 % (36.0-66.0); PLATELET COUNT, AUTOMATED 336 10^3/uL (150-450); RED BLOOD COUNT 4.52 10^6/uL (4.00-5.40); WHITE BLOOD COUNT 12.3 10^3/uL (4.0-10.0)
[2022-04-10] MEDS ORDERED: **hydrALAZINE HCL** 25 MG TAB PO ONE (15:25)
[2022-04-10] MEDS ORDERED: amLODIPine 5 MG TAB PO ONE (15:25)
[2022-04-10 15:45] LABS: ALBUMIN 3.5 GM/DL (3.2-5.2); ALT/SGPT 18 U/L (12-78); BILIRUBIN,DIRECT 0.1 MG/DL (0.0-0.2); BILIRUBIN,TOTAL 0.5 MG/DL (0.2-1.0); BLOOD UREA NITROGEN 26 MG/DL (7-18); CALCIUM LEVEL 9.8 MG/DL (8.8-10.2); CARBON DIOXIDE LEVEL 31 MEQ/L (21-32); CHLORIDE LEVEL 103 MEQ/L (98-107); CREATININE FOR GFR 0.88 MG/DL (0.55-1.30); GLOMERULAR FILTRATION RATE > 60.0 (>45); GLUCOSE, FASTING 155 MG/DL (70-100); LIPASE 70 U/L (73-393); POTASSIUM SERUM 3.8 MEQ/L (3.5-5.1); SODIUM LEVEL 139 MEQ/L (136-145); THYROID STIMULATING HORMONE 0.708 uIU/ML (0.358-3.740); TOTAL PROTEIN 7.5 GM/DL (6.4-8.2)
[2022-04-10 16:09] LABS: ERYTHROCYTE SEDIMENTATION RATE 39 mm/hr (0-30)
[2022-04-10 16:10] LABS: RSV AMPLIFICATION NEGATIVE (NEGATIVE)
[2022-04-10 17:00] VITALS: BP 173/76
[2022-04-10] MEDS ORDERED: AMLO1TAB24 PO (17:01)
== END 2022-04-10 17:34 | disposition home or self-care (01) ==
LOC: M ED 12:11 → EDBD 12:11 → M ED 17:34
DX: R51.9 Headache, unspecified (principal); I11.0 Hypertensive heart disease with heart failure; I50.9 Heart failure, unspecified; E11.9 Type 2 diabetes mellitus without complications; G47.30 Sleep apnea, unspecified; Z79.01 Long term (current) use of anticoagulants; Z79.899 Other long term (current) drug therapy; Z88.0 Allergy status to penicillin; Z88.1 Allergy status to other antibiotic agents; Z88.2 Allergy status to sulfonamides; Z88.8 Allergy status to other drugs, medicaments and biological substances
CPT/HCPCS: 70450; 71045; 80047; 80048; 80076; 83690; 84439; 84443; 85025; 85652; 87631; 93005; 93041; 94760; 96374; 99285; J2270; J2405

== ENCOUNTER → 2022-05-08 | Outpatient (REF) | payer MEDICARE ==
[~2022-05-08] MED LIST changes: +AMLO1TAB24 PO
[2022-05-08 11:32] LABS: BASO # 0.9 10^3/uL (0.0-0.2); BASO % 7.9 % (0.0-1.0); EOS # 0.4 10^3/uL (0.0-0.5); HEMATOCRIT 37.1 % (36.0-47.0); HEMOGLOBIN 12.1 g/dl (12.0-15.5); MEAN CORPUSCULAR HEMOGLOBIN 28.1 pg (27.0-33.0); MEAN CORPUSCULAR HGB CONC 32.6 g/dl (32.0-36.5); MEAN CORPUSCULAR VOLUME 86.3 fl (80.0-96.0); MONO # 0.9 10^3/uL (0.0-0.8); MONO % 7.5 % (2.0-8.0); NEUTROPHILS # 6.8 10^3/uL (1.5-8.5); NEUTROPHILS % 57.5 % (36.0-66.0); PLATELET COUNT, AUTOMATED 314 10^3/uL (150-450); WHITE BLOOD COUNT 11.8 10^3/uL (4.0-10.0)
[2022-05-08 12:26] LABS: ALBUMIN 3.3 GM/DL (3.2-5.2); ALT/SGPT 21 U/L (12-78); BILIRUBIN,TOTAL 0.4 MG/DL (0.2-1.0); BLOOD UREA NITROGEN 22 MG/DL (7-18); CARBON DIOXIDE LEVEL 26 MEQ/L (21-32); CHLORIDE LEVEL 102 MEQ/L (98-107); CREATININE FOR GFR 0.74 MG/DL (0.55-1.30); GLOMERULAR FILTRATION RATE > 60.0 (>45); GLUCOSE, FASTING 182 MG/DL (70-100); NT-PRO BNP 2290 PG/ML (<125); POTASSIUM SERUM 4.2 MEQ/L (3.5-5.1); SODIUM LEVEL 134 MEQ/L (136-145); TOTAL PROTEIN 6.8 GM/DL (6.4-8.2)
== END ==
LOC: M LABDRAWC 11:08
PROVIDERS: ATTEND Internal Medicine Cardiovascular Disease
DX: I11.0 Hypertensive heart disease with heart failure (principal); D46.9 Myelodysplastic syndrome, unspecified; I25.10 Atherosclerotic heart disease of native coronary artery without angina pectoris; I50.32 Chronic diastolic (congestive) heart failure

== ENCOUNTER → 2022-05-22 | Outpatient (REF) | payer MEDICARE ==
[2022-05-22 12:34] LABS: ALBUMIN 3.7 GM/DL (3.2-5.2); BLOOD UREA NITROGEN 26 MG/DL (7-18); CALCIUM LEVEL 9.4 MG/DL (8.8-10.2); CARBON DIOXIDE LEVEL 28 MEQ/L (21-32); CHLORIDE LEVEL 103 MEQ/L (98-107); CREATININE FOR GFR 0.85 MG/DL (0.55-1.30); GLOMERULAR FILTRATION RATE > 60.0 (>45); GLUCOSE, FASTING 115 MG/DL (70-100); MAGNESIUM LEVEL 2.5 MG/DL (1.8-2.4); NT-PRO BNP 998 PG/ML (<125); PHOSPHORUS LEVEL 3.1 MG/DL (2.5-4.9); SODIUM LEVEL 138 MEQ/L (136-145)
== END ==
LOC: M LABDRAWC 11:04
PROVIDERS: ATTEND Internal Medicine Cardiovascular Disease
DX: I50.33 Acute on chronic diastolic (congestive) heart failure (principal)

== ENCOUNTER → 2022-06-15 | Outpatient (REF) | payer MEDICARE ==
[2022-06-15 19:17] LABS: ALBUMIN 3.5 GM/DL (3.2-5.2); BILIRUBIN,TOTAL 0.7 MG/DL (0.2-1.0); CALCIUM LEVEL 9.5 MG/DL (8.8-10.2); CREATININE FOR GFR 1.02 MG/DL (0.55-1.30); GLOMERULAR FILTRATION RATE 57.2 (>45); POTASSIUM SERUM 3.8 MEQ/L (3.5-5.1)
[2022-06-15 19:41] LABS: HEMOGLOBIN A1c 10.4 %
== END ==
LOC: M SFHCCLAY 11:24
PROVIDERS: ATTEND Nurse Practitioner Family
DX: E11.9 Type 2 diabetes mellitus without complications (principal); I25.10 Atherosclerotic heart disease of native coronary artery without angina pectoris; I50.32 Chronic diastolic (congestive) heart failure; E03.9 Hypothyroidism, unspecified; C92.10 Chronic myeloid leukemia, BCR/ABL-positive, not having achieved remission; R42 Dizziness and giddiness; K80.20 Calculus of gallbladder without cholecystitis without obstruction; J90 Pleural effusion, not elsewhere classified; M25.476 Effusion, unspecified foot

== ENCOUNTER → 2022-07-08 | Outpatient (CLI) | payer MEDICARE ==
[~2022-07-08] MED LIST changes: +ISOVUE-300 61% 50ML VIAL ONE; +LIDOCAINE 1% MDV 20ML VIAL ONE; +methylPREDNISolone SUSP 40MG/ML 1ML VIAL (DEPO MEDROL) ONE
== END ==
LOC: M PLAIMG 12:24
PROVIDERS: ATTEND Physician Assistant Surgical
DX: M16.11 Unilateral primary osteoarthritis, right hip (principal)
CPT/HCPCS: 20610; 76000; Q9967

== ENCOUNTER → 2022-08-28 | Outpatient (REF) | payer MEDICARE ==
[~2022-08-28] MED LIST changes: -ISOVUE-300 61% 50ML VIAL ONE; -LIDOCAINE 1% MDV 20ML VIAL ONE; -methylPREDNISolone SUSP 40MG/ML 1ML VIAL (DEPO MEDROL) ONE
[2022-08-28 11:45] LABS: BASO # 1.8 10^3/uL (0.0-0.2); BASO % 10.5 % (0.0-1.0); EOS # 0.5 10^3/uL (0.0-0.5); EOS % 3.1 % (0.0-3.0); HEMATOCRIT 35.9 % (36.0-47.0); HEMOGLOBIN 11.8 g/dl (12.0-15.5); LYMPH # 2.5 10^3/uL (1.5-5.0); LYMPH % 14.9 % (24.0-44.0); MEAN CORPUSCULAR HEMOGLOBIN 29.4 pg (27.0-33.0); MEAN CORPUSCULAR HGB CONC 32.9 g/dl (32.0-36.5); MEAN CORPUSCULAR VOLUME 89.3 fl (80.0-96.0); MONO # 1.1 10^3/uL (0.0-0.8); MONO % 6.5 % (2.0-8.0); NEUTROPHILS # 9.2 10^3/uL (1.5-8.5); NEUTROPHILS % 54.4 % (36.0-66.0); PLATELET COUNT, AUTOMATED 364 10^3/uL (150-450); RED BLOOD COUNT 4.02 10^6/uL (4.00-5.40)
[2022-08-28 12:16] LABS: MAGNESIUM LEVEL 1.9 MG/DL (1.8-2.4)
[2022-08-28 12:18] LABS: ALBUMIN 3.5 G/DL (3.2-5.2); ALKALINE PHOSPHATASE 91 U/L (46-116); ALT/SGPT 22 U/L (7.0-40); AST/SGOT 20 U/L (<34); BILIRUBIN,TOTAL 0.4 MG/DL (0.3-1.2); BLOOD UREA NITROGEN 19 MG/DL (9-23); CARBON DIOXIDE LEVEL 29 MMOL/L (20-31); CHLORIDE LEVEL 103 MMOL/L (98-107); CREATININE FOR GFR 0.71 MG/DL (0.55-1.30); GLOMERULAR FILTRATION RATE > 60.0 (>45); GLUCOSE, FASTING 76 MG/DL (74-106); SODIUM LEVEL 140 MMOL/L (136-145); TOTAL PROTEIN 6.5 G/DL (5.7-8.2)
== END ==
LOC: M LABDRAWC 11:14
PROVIDERS: ATTEND Internal Medicine Cardiovascular Disease
DX: I27.81 Cor pulmonale (chronic) (principal); I49.5 Sick sinus syndrome; I25.10 Atherosclerotic heart disease of native coronary artery without angina pectoris; I11.0 Hypertensive heart disease with heart failure; I50.32 Chronic diastolic (congestive) heart failure

== ENCOUNTER → 2022-09-02 | Outpatient (CLI) | payer MEDICARE | LOC: M RAD 14:43 | PROVIDERS: ATTEND Internal Medicine Cardiovascular Disease | DX: R22.41 Localized swelling, mass and lump, right lower limb (principal) ==

== ENCOUNTER → 2022-09-09 | Outpatient (REF) | payer MEDICARE ==
[2022-09-09 18:22] LABS: BLOOD UREA NITROGEN 36 MG/DL (9-23); CALCIUM LEVEL 9.7 MG/DL (8.3-10.6); CARBON DIOXIDE LEVEL 30 MMOL/L (20-31); CHLORIDE LEVEL 98 MMOL/L (98-107); CREATININE FOR GFR 0.86 MG/DL (0.55-1.30); GLOMERULAR FILTRATION RATE > 60.0 (>39); GLUCOSE, FASTING 193 MG/DL (74-106); POTASSIUM SERUM 4.4 MMOL/L (3.5-5.1); SODIUM LEVEL 136 MMOL/L (136-145)
[2022-09-09 18:25] LABS: HEMOGLOBIN A1c 9.3 % (4.0-6.0)
== END ==
LOC: M SFHCCLAY 11:11
PROVIDERS: ATTEND Nurse Practitioner Family
DX: E11.9 Type 2 diabetes mellitus without complications (principal)

== ENCOUNTER → 2022-11-16 | Outpatient (REF) | payer MEDICARE ==
[~2022-11-16] MED LIST changes: +CARV6.25; +ONDA4TAB6 PO
[2022-11-16 12:32] LABS: BASO % 12.5 % (0.0-1.0); EOS # 1.4 10^3/uL (0.0-0.5); EOS % 4.2 % (0.0-3.0); HEMATOCRIT 34.2 % (36.0-47.0); HEMOGLOBIN 11.1 g/dl (12.0-15.5); LYMPH # 3.7 10^3/uL (1.5-5.0); LYMPH % 11.6 % (24.0-44.0); MEAN CORPUSCULAR HEMOGLOBIN 28.8 pg (27.0-33.0); MEAN CORPUSCULAR HGB CONC 32.5 g/dl (32.0-36.5); MEAN CORPUSCULAR VOLUME 88.8 fl (80.0-96.0); MONO # 1.4 10^3/uL (0.0-0.8); MONO % 4.4 % (2.0-8.0); NEUTROPHILS # 16.2 10^3/uL (1.5-8.5); NEUTROPHILS % 50.8 % (36.0-66.0); PLATELET COUNT, AUTOMATED 506 10^3/uL (150-450); RED BLOOD COUNT 3.85 10^6/uL (4.00-5.40)
[2022-11-16 12:34] LABS: WHITE BLOOD COUNT 31.9 10^3/uL (4.0-10.0)
[2022-11-16 16:26] LABS: ALBUMIN 3.3 G/DL (3.2-5.2); BLOOD UREA NITROGEN 27 MG/DL (9-23); CALCIUM LEVEL 9.3 MG/DL (8.3-10.6); CARBON DIOXIDE LEVEL 30 MMOL/L (20-31); CHLORIDE LEVEL 100 MMOL/L (98-107); CREATININE FOR GFR 0.71 MG/DL (0.55-1.30); GLOMERULAR FILTRATION RATE > 60.0 (>39); GLUCOSE, FASTING 101 MG/DL (74-106); MAGNESIUM LEVEL 1.9 MG/DL (1.8-2.4); POTASSIUM SERUM 4.8 MMOL/L (3.5-5.1); SODIUM LEVEL 137 MMOL/L (136-145)
[2022-11-16 16:39] LABS: PHOSPHORUS LEVEL 4.3 MG/DL (2.4-5.1)
== END ==
LOC: M LABDRAWC 11:29
PROVIDERS: ATTEND Internal Medicine Cardiovascular Disease
DX: I48.21 Permanent atrial fibrillation (principal); I50.32 Chronic diastolic (congestive) heart failure; I49.3 Ventricular premature depolarization; D64.9 Anemia, unspecified; I11.0 Hypertensive heart disease with heart failure; C92.10 Chronic myeloid leukemia, BCR/ABL-positive, not having achieved remission

== ENCOUNTER → 2022-12-17 | Outpatient (REF) | payer MEDICARE ==
[2022-12-17 12:21] LABS: BASO # 0.4 10^3/uL (0.0-0.2); BASO % 6.7 % (0.0-1.0); EOS # 0.3 10^3/uL (0.0-0.5); EOS % 5.1 % (0.0-3.0); HEMATOCRIT 31.1 % (36.0-47.0); HEMOGLOBIN 10.2 g/dl (12.0-15.5); LYMPH # 1.3 10^3/uL (1.5-5.0); LYMPH % 19.4 % (24.0-44.0); MEAN CORPUSCULAR HEMOGLOBIN 29.1 pg (27.0-33.0); MEAN CORPUSCULAR HGB CONC 32.8 g/dl (32.0-36.5); MEAN CORPUSCULAR VOLUME 88.6 fl (80.0-96.0); MONO # 0.4 10^3/uL (0.0-0.8); MONO % 5.7 % (2.0-8.0); NEUTROPHILS # 4.1 10^3/uL (1.5-8.5); NEUTROPHILS % 62.8 % (36.0-66.0); PLATELET COUNT, AUTOMATED 260 10^3/uL (150-450); RED BLOOD COUNT 3.51 10^6/uL (4.00-5.40); WHITE BLOOD COUNT 6.5 10^3/uL (4.0-10.0)
[2022-12-17 12:22] LABS: ALBUMIN 3.6 G/DL (3.2-5.2); ALKALINE PHOSPHATASE 89 U/L (46-116); ALT/SGPT 23 U/L (7.0-40); AST/SGOT 12 U/L (<34); BILIRUBIN,TOTAL 0.7 MG/DL (0.3-1.2); BLOOD UREA NITROGEN 29 MG/DL (9-23); CALCIUM LEVEL 8.8 MG/DL (8.3-10.6); CARBON DIOXIDE LEVEL 26 MMOL/L (20-31); CHLORIDE LEVEL 106 MMOL/L (98-107); CREATININE FOR GFR 0.77 MG/DL (0.55-1.30); GLOMERULAR FILTRATION RATE > 60.0 (>39); GLUCOSE, FASTING 115 MG/DL (74-106); POTASSIUM SERUM 4.3 MMOL/L (3.5-5.1); SODIUM LEVEL 139 MMOL/L (136-145); TOTAL PROTEIN 6.6 G/DL (5.7-8.2)
== END ==
LOC: M LABDRAWC 11:41
PROVIDERS: ATTEND Nurse Practitioner
DX: C92.10 Chronic myeloid leukemia, BCR/ABL-positive, not having achieved remission (principal)

== ENCOUNTER → 2023-01-22 | Outpatient (CLI) | payer MEDICARE, MEDICAID ==
[~2023-01-22] MED LIST changes: +ACET-716 PO; +SYST1SOL4 OP
== END ==
LOC: M RAD 09:32
PROVIDERS: ATTEND Nurse Practitioner Family
DX: M79.89 Other specified soft tissue disorders (principal); I87.2 Venous insufficiency (chronic) (peripheral)

== ENCOUNTER → 2023-02-01 | Outpatient (CLI) | payer MEDICAID, MEDICARE | LOC: M RAD 15:15 | PROVIDERS: ATTEND Nurse Practitioner | DX: C92.10 Chronic myeloid leukemia, BCR/ABL-positive, not having achieved remission (principal); N28.1 Cyst of kidney, acquired; Q63.1 Lobulated, fused and horseshoe kidney ==

== ENCOUNTER → 2023-02-02 | Outpatient (REF) | payer MEDICARE, MEDICAID ==
[2023-02-02 19:46] LABS: HEMOGLOBIN A1c 8.1 % (4.0-6.0)
== END ==
LOC: M SFHCCLAY 11:01
PROVIDERS: ATTEND Nurse Practitioner Family
DX: E11.9 Type 2 diabetes mellitus without complications (principal)

== ENCOUNTER → 2023-03-01 | Outpatient (REF) | payer MEDICARE, MEDICAID ==
[~2023-03-01] MED LIST changes: +HYDR500C3 PO
[2023-03-01 19:13] LABS: ALBUMIN 3.7 G/DL (3.2-5.2); ALKALINE PHOSPHATASE 81 U/L (46-116); ALT/SGPT 15 U/L (7.0-40); AST/SGOT 20 U/L (<34); BILIRUBIN,TOTAL 0.5 MG/DL (0.3-1.2); BLOOD UREA NITROGEN 24 MG/DL (9-23); CALCIUM LEVEL 10.4 MG/DL (8.3-10.6); CARBON DIOXIDE LEVEL 24 MMOL/L (20-31); CHLORIDE LEVEL 105 MMOL/L (98-107); CREATININE FOR GFR 0.92 MG/DL (0.55-1.30); GLOMERULAR FILTRATION RATE > 60.0 (>39); GLUCOSE, FASTING 138 MG/DL (74-106); POTASSIUM SERUM 4.2 MMOL/L (3.5-5.1); SODIUM LEVEL 137 MMOL/L (136-145); TOTAL PROTEIN 6.7 G/DL (5.7-8.2)
[2023-03-01 19:14] LABS: BASO # 8.6 10^3/uL (0.0-0.2); BASO % 15.9 % (0.0-1.0); EOS # 1.9 10^3/uL (0.0-0.5); EOS % 3.5 % (0.0-3.0); HEMATOCRIT 34.8 % (36.0-47.0); HEMOGLOBIN 11.1 g/dl (12.0-15.5); LYMPH # 5.5 10^3/uL (1.5-5.0); LYMPH % 10.1 % (24.0-44.0); MEAN CORPUSCULAR HEMOGLOBIN 28.1 pg (27.0-33.0); MEAN CORPUSCULAR HGB CONC 31.9 g/dl (32.0-36.5); MEAN CORPUSCULAR VOLUME 88.1 fl (80.0-96.0); MONO % 3.3 % (2.0-8.0); NEUTROPHILS # 22.7 10^3/uL (1.5-8.5); NEUTROPHILS % 42.1 % (36.0-66.0); RED BLOOD COUNT 3.95 10^6/uL (4.00-5.40)
[2023-03-01 19:19] LABS: MONO # 1.8 10^3/uL (0.0-0.8); PLATELET COUNT, AUTOMATED 1037 10^3/uL (150-450)
[2023-03-01 19:22] LABS: WHITE BLOOD COUNT 53.9 10^3/uL (4.0-10.0)
== END ==
LOC: M LABDRAWC 17:34
PROVIDERS: ATTEND Internal Medicine Cardiovascular Disease
DX: C92.92 Myeloid leukemia, unspecified in relapse (principal); I11.0 Hypertensive heart disease with heart failure; I50.32 Chronic diastolic (congestive) heart failure

== ENCOUNTER → 2023-03-01 | Outpatient (REF) | payer MEDICARE, MEDICAID ==
[2023-03-01 19:14] LABS: ALBUMIN 3.7 G/DL (3.2-5.2); ALKALINE PHOSPHATASE 80 U/L (46-116); ALT/SGPT 15 U/L (7.0-40); AST/SGOT 21 U/L (<34); BILIRUBIN,TOTAL 0.5 MG/DL (0.3-1.2); BLOOD UREA NITROGEN 24 MG/DL (9-23); CALCIUM LEVEL 10.4 MG/DL (8.3-10.6); CARBON DIOXIDE LEVEL 24 MMOL/L (20-31); CHLORIDE LEVEL 104 MMOL/L (98-107); CREATININE FOR GFR 0.92 MG/DL (0.55-1.30); GLOMERULAR FILTRATION RATE > 60.0 (>39); GLUCOSE, FASTING 139 MG/DL (74-106); POTASSIUM SERUM 4.2 MMOL/L (3.5-5.1); SODIUM LEVEL 137 MMOL/L (136-145); TOTAL PROTEIN 6.7 G/DL (5.7-8.2)
[2023-03-01 19:15] LABS: BASO # 8.3 10^3/uL (0.0-0.2); BASO % 15.6 % (0.0-1.0); EOS # 1.9 10^3/uL (0.0-0.5); EOS % 3.6 % (0.0-3.0); HEMATOCRIT 34.5 % (36.0-47.0); HEMOGLOBIN 11.2 g/dl (12.0-15.5); LYMPH % 9.5 % (24.0-44.0); MEAN CORPUSCULAR HEMOGLOBIN 28.5 pg (27.0-33.0); MEAN CORPUSCULAR HGB CONC 32.5 g/dl (32.0-36.5); MEAN CORPUSCULAR VOLUME 87.8 fl (80.0-96.0); MONO % 3.1 % (2.0-8.0); NEUTROPHILS # 22.7 10^3/uL (1.5-8.5); NEUTROPHILS % 42.9 % (36.0-66.0); RED BLOOD COUNT 3.93 10^6/uL (4.00-5.40)
[2023-03-01 19:27] LABS: MONO # 1.7 10^3/uL (0.0-0.8); PLATELET COUNT, AUTOMATED 1011 10^3/uL (150-450); WHITE BLOOD COUNT 52.9 10^3/uL (4.0-10.0)
== END ==
LOC: M LABDRAWC 17:31
PROVIDERS: ATTEND Internal Medicine Hematology & Oncology
DX: C91.10 Chronic lymphocytic leukemia of B-cell type not having achieved remission (principal)

== ENCOUNTER → 2023-07-12 | Outpatient (CLI) | payer MEDICARE, MEDICAID ==
[~2023-07-12] MED LIST changes: +BACI500O8 TOP; -CEFD300C41 PO; +CEFD300C42 PO; +DICL100G10 TOP; -DICL1GEL3 TOP; +IMAT100T PO; +IMAT400T PO; +MECL-209 PO; -MECL1TAB31 PO
== END ==
LOC: M RAD 10:26
PROVIDERS: ATTEND Physician Assistant Surgical
DX: M51.36 Other intervertebral disc degeneration, lumbar region (principal)

== ENCOUNTER → 2023-08-24 | Outpatient (REF) | payer MEDICARE, MEDICAID ==
[~2023-08-24] MED LIST changes: +CEFD1CAP9 PO; -CEFD300C42 PO; +FAMO20TA PO
[2023-08-24 18:49] LABS: HEMATOCRIT 31.8 % (36.0-47.0); HEMOGLOBIN 10.5 g/dl (12.0-15.5); RED BLOOD COUNT 3.28 10^6/uL (4.00-5.40)
[2023-08-24 18:57] LABS: ALBUMIN 3.8 G/DL (3.2-5.2); ALKALINE PHOSPHATASE 83 U/L (46-116); ALT/SGPT 28 U/L (7.0-40); AST/SGOT 29 U/L (<34); BILIRUBIN,TOTAL 0.4 MG/DL (0.3-1.2); BLOOD UREA NITROGEN 27 MG/DL (9-23); CALCIUM LEVEL 9.5 MG/DL (8.3-10.6); CARBON DIOXIDE LEVEL 25 MMOL/L (20-31); CHLORIDE LEVEL 104 MMOL/L (98-107); CREATININE FOR GFR 0.82 MG/DL (0.55-1.30); GLOMERULAR FILTRATION RATE > 60.0 (>39); GLUCOSE, FASTING 205 MG/DL (74-106); SODIUM LEVEL 135 MMOL/L (136-145); TOTAL PROTEIN 6.6 G/DL (5.7-8.2)
[2023-08-24 19:29] LABS: PLATELET COUNT, AUTOMATED 1092 10^3/uL (150-450); WHITE BLOOD COUNT 78.7 10^3/uL (4.0-10.0)
[2023-08-24 21:15] LABS: BASOPHILS 6 % (0-1); EOSINOPHILS 7 % (0-3); LYMPHOCYTES 9 % (16-44); METAMYELOCYTES 7 % (0-0); MONOCYTES 1 % (0-5); MYELOCYTES 6 % (0-0); NEUTROPHILS 53 % (28-66)
[2023-08-24 21:16] LABS: ANISOCYTOSIS 2+; PLATELET ESTIMATE INCREASED (NORMAL)
== END ==
LOC: M SFHCCLAY 10:18
PROVIDERS: ATTEND Nurse Practitioner Family
DX: E11.9 Type 2 diabetes mellitus without complications (principal)

== ENCOUNTER → 2023-10-05 | Outpatient (REF) | payer MEDICARE, MEDICAID ==
[2023-10-05 18:37] LABS: ALBUMIN 3.7 G/DL (3.2-5.2); CALCIUM LEVEL 9.4 MG/DL (8.3-10.6); CREATININE FOR GFR 1.1 MG/DL (0.55-1.30); GLOMERULAR FILTRATION RATE 52.1 (>39); PHOSPHORUS LEVEL 4.8 MG/DL (2.4-5.1); POTASSIUM SERUM 4.7 MMOL/L (3.5-5.1)
== END ==
LOC: M LABDRAWC 17:38
PROVIDERS: ATTEND Internal Medicine Cardiovascular Disease
DX: I11.0 Hypertensive heart disease with heart failure (principal); I50.32 Chronic diastolic (congestive) heart failure; I27.81 Cor pulmonale (chronic)

== ENCOUNTER → 2023-10-12 | Outpatient (REF) | payer MEDICARE, MEDICAID ==
[2023-10-12 18:53] LABS: ALBUMIN 3.7 G/DL (3.2-5.2); CALCIUM LEVEL 9.4 MG/DL (8.3-10.6); CREATININE FOR GFR 0.98 MG/DL (0.55-1.30); GLOMERULAR FILTRATION RATE 59.6 (>39); PHOSPHORUS LEVEL 4.9 MG/DL (2.4-5.1); POTASSIUM SERUM 4.6 MMOL/L (3.5-5.1)
== END ==
LOC: M LABDRAWC 17:06
PROVIDERS: ATTEND Internal Medicine Cardiovascular Disease
DX: I50.32 Chronic diastolic (congestive) heart failure (principal)

== ENCOUNTER → 2023-10-21 | Outpatient (CLI) | payer MEDICARE, MEDICAID | LOC: M PLAIMG 10:51 | PROVIDERS: ATTEND Pain Medicine Interventional Pain Medicine | DX: M25.551 Pain in right hip (principal) ==

== ENCOUNTER 2023-11-04 19:21 | Inpatient (IN) | payer MEDICARE, MEDICAID ==
[~2023-11-04] VITALS: Ht 154.9 cm; Wt 93.6 kg
[~2023-11-04 19:21] MED LIST changes: +commode; +wheelchair
[2023-11-04] MEDS: ONDANSETRON 4MG 2ML VIAL IV ONE (20:21)
[2023-11-04] MEDS: MORPHINE 2 MG/ML 1ML VIAL IV PRN (20:24)
[2023-11-04 20:33] LABS: BASO # 14.7 10^3/uL (0.0-0.2); BASO % 8.1 % (0.0-1.0); EOS % 2.2 % (0.0-3.0); HEMATOCRIT 30.6 % (36.0-47.0); HEMOGLOBIN 10.8 g/dl (12.0-15.5); LYMPH # 7.7 10^3/uL (1.5-5.0); LYMPH % 4.2 % (24.0-44.0); MEAN CORPUSCULAR HEMOGLOBIN 34.8 pg (27.0-33.0); MEAN CORPUSCULAR HGB CONC 35.3 g/dl (32.0-36.5); MEAN CORPUSCULAR VOLUME 98.7 fl (80.0-96.0); NEUTROPHILS # 95.6 10^3/uL (1.5-8.5); NEUTROPHILS % 52.8 % (36.0-66.0)
[2023-11-04 20:35] LABS: PLATELET COUNT, AUTOMATED 1053 10^3/uL (150-450); WHITE BLOOD COUNT 181.3 10^3/uL (4.0-10.0)
[2023-11-04 20:42] LABS: MONO # 5.4 10^3/uL (0.0-0.8)
[2023-11-04 20:59] LABS: CK-MB VALUE MASS < 1.0 NG/ML (<3.6); LIPASE 26 U/L (12-53)
[2023-11-04 21:01] LABS: ALBUMIN 4.1 G/DL (3.2-5.2); ALKALINE PHOSPHATASE 179 U/L (46-116); ALT/SGPT 42 U/L (7.0-40); AST/SGOT 31 U/L (<34); BILIRUBIN,DIRECT 0.3 MG/DL (<0.4); BILIRUBIN,TOTAL 0.8 MG/DL (0.3-1.2); BLOOD UREA NITROGEN 35 MG/DL (9-23); CALCIUM LEVEL 9.4 MG/DL (8.3-10.6); CARBON DIOXIDE LEVEL 24 MMOL/L (20-31); CHLORIDE LEVEL 102 MMOL/L (98-107); CREATININE FOR GFR 1.01 MG/DL (0.55-1.30); GLOMERULAR FILTRATION RATE 57.5 (>39); GLUCOSE, FASTING 163 MG/DL (74-106); POTASSIUM SERUM 3.8 MMOL/L (3.5-5.1); SODIUM LEVEL 136 MMOL/L (136-145); TOTAL PROTEIN 7.2 G/DL (5.7-8.2)
[2023-11-04 21:03] LABS: CPK CREATINE PHOSPHOKINASE 42 U/L (34-145); FREE T4 1.18 NG/DL (0.89-1.76); MB/CK RELATIVE INDEX 2.38 (< OR =4); THYROID STIMULATING HORMONE 14.116 uIU/ML (0.55-4.78)
[2023-11-04] MEDS ORDERED: ISOVUE-370 76% 100ML VIAL As Ordered ONE (21:12)
[2023-11-04 22:22] LABS: CK-MB VALUE MASS < 1.0 NG/ML (<3.6)
[2023-11-04 22:29] LABS: CPK CREATINE PHOSPHOKINASE 59 U/L (34-145); MB/CK RELATIVE INDEX 1.69 (< OR =4)
[2023-11-04 22:50] LABS: MAGNESIUM LEVEL 2.1 MG/DL (1.8-2.4)
[2023-11-04] MEDS ORDERED: DEXTROSE 50% 50ML SYRINGE IV PRN (23:40)
[2023-11-04] MEDS ORDERED: DEXTROMETHORPHAN 60MG/10ML SUSP 90ML BTL(DELSYM) PO PRN (23:40)
[2023-11-04] MEDS ORDERED: GLUCAGON INJ 1MG VIAL SC PRN (23:40)
[2023-11-04] MEDS ORDERED: ALBUTEROL 90 MCG/ACT 8GM HFA INHALER INH PRN (23:40)
[2023-11-04] MEDS ORDERED: GLUCOSE 4GM CHEW TABLET PO PRN (23:40)
[2023-11-05] VITALS (7 sets, daily range): BP systolic 126–133; BP diastolic 60–65; TEMP 97.7–97.9; O2SAT 95–99
[2023-11-05 00:31] LABS: D-DIMER QUANT 0.31 ug/mL (<0.5); INR 1.36; PARTIAL THROMBOPLASTIN TIME 29.8 SECONDS (24.8-34.2); PROTHROMBIN TIME 16.3 SECONDS (12.5-14.5)
[2023-11-05 00:45] LABS: C REACTIVE PROTEIN QUANTITATIV 2.4 MG/DL (<1.0); MAGNESIUM LEVEL 2.2 MG/DL (1.8-2.4)
[2023-11-05 00:49] LABS: FERRITIN 189.6 NG/ML (7.3-270.7)
[2023-11-05 00:59] LABS: PROCALCITONIN 0.29 ng/ml
[2023-11-05] MEDS: ACETAMINOPHEN TAB 650MG DOSE (2X325MG) PO PRN (01:28)
[2023-11-05] MEDS ORDERED: ELIQ2.5T PO (05:42)
[2023-11-05] MEDS ORDERED: SYST1SOL4 OU (05:42)
[2023-11-05] MEDS ORDERED: XALA0.007 OU (05:42)
[2023-11-05] MEDS ORDERED: HYDR500C3 PO ×2 (05:42)
[2023-11-05] MEDS ORDERED: FLON1SPR NARES (05:42)
[2023-11-05] MEDS ORDERED: HOME MED LIST COMPLETE! XX SCH (05:45)
[2023-11-05] MEDS: LEVOTHYROXINE 88MCG TABLET (0.088 MG) PO SCH (06:00)
[2023-11-05 07:08] LABS: BASO # 13.6 10^3/uL (0.0-0.2); BASO % 8.4 % (0.0-1.0); EOS # 4.3 10^3/uL (0.0-0.5); EOS % 2.6 % (0.0-3.0); HEMATOCRIT 27.8 % (36.0-47.0); HEMOGLOBIN 9.8 g/dl (12.0-15.5); LYMPH % 4.3 % (24.0-44.0); MEAN CORPUSCULAR HEMOGLOBIN 35.4 pg (27.0-33.0); MEAN CORPUSCULAR HGB CONC 35.3 g/dl (32.0-36.5); MEAN CORPUSCULAR VOLUME 100.4 fl (80.0-96.0); MONO % 2.9 % (2.0-8.0); NEUTROPHILS # 85.5 10^3/uL (1.5-8.5); NEUTROPHILS % 52.7 % (36.0-66.0); RED BLOOD COUNT 2.77 10^6/uL (4.00-5.40)
[2023-11-05 07:13] LABS: MONO # 4.8 10^3/uL (0.0-0.8)
[2023-11-05 07:14] LABS: PLATELET COUNT, AUTOMATED 910 10^3/uL (150-450); WHITE BLOOD COUNT 162.4 10^3/uL (4.0-10.0)
[2023-11-05] MEDS: INSULIN LISPRO (NovoLOG) PER UNIT SC SCH ×2 (07:30→20:53)
[2023-11-05 07:38] LABS: BLOOD UREA NITROGEN 31 MG/DL (9-23); CALCIUM LEVEL 8.9 MG/DL (8.3-10.6); CARBON DIOXIDE LEVEL 24 MMOL/L (20-31); CHLORIDE LEVEL 105 MMOL/L (98-107); CREATININE FOR GFR 0.91 MG/DL (0.55-1.30); GLOMERULAR FILTRATION RATE > 60.0 (>39); GLUCOSE, FASTING 72 MG/DL (74-106); MAGNESIUM LEVEL 2.1 MG/DL (1.8-2.4); POTASSIUM SERUM 3.7 MMOL/L (3.5-5.1); SODIUM LEVEL 136 MMOL/L (136-145)
[2023-11-05 08:11] LABS: IMMUNOGLOBULIN G 564 MG/DL (650-1600)
[2023-11-05 08:28] LABS: FERRITIN 183.3 NG/ML (7.3-270.7)
[2023-11-05] MEDS: predniSONE 20 MG TAB PO SCH (08:29)
[2023-11-05] MEDS: APIXABAN 2.5 MG TAB (ELIQUIS) PO SCH (08:30)
[2023-11-05] MEDS: FLUTICASONE PROP 0.05% NASAL SPRAY 16 GM (FLONASE) NARES SCH (08:31)
[2023-11-05 08:33] LABS: PROCALCITONIN 0.32 ng/ml
[2023-11-05] MEDS: HYDROXYUREA 500 MG CAP PO SCH (09:00)
[2023-11-05 09:12] LABS: LDH LACTATE DEHYDROGENASE 816 U/L (120-246)
[2023-11-05 09:17] LABS: D-DIMER QUANT 0.39 ug/mL (<0.5)
[2023-11-05] MEDS: REMDESIVIR 200 MG in NS 250 ML IV ONE (12:29)
[2023-11-05] MEDS ORDERED: ENOXAPARIN 40MG/0.4ML SYRINGE (J1650 PER 10MG) SC ONE (13:35)
[2023-11-05] MEDS ORDERED: MECLIZINE 12.5 MG TAB PO PRN (13:40)
[2023-11-05] MEDS: SPIRONOLACTONE 25 MG TAB PO SCH (17:00)
[2023-11-05] MEDS: TORSEMIDE 20 MG TAB PO SCH (17:00)
[2023-11-05] MEDS: GLIMEPIRIDE 2 MG TAB PO SCH (17:57)
[2023-11-05] MEDS: POTASSIUM CHLORIDE 10MEQ SR TABLET PO SCH (20:53)
[2023-11-05] MEDS: LATANOPROST 0.005% OPHTH SOLN 2.5 ML OU SCH (20:54)
[2023-11-05] MEDS ORDERED: APIXABAN 2.5 MG TAB (ELIQUIS) PO SCH (21:00)
[2023-11-06] VITALS (8 sets, daily range): BP systolic 127–138; BP diastolic 65–68; TEMP 97.5–97.7; O2SAT 92–98
[2023-11-06] MEDS: PERCOCET 5MG/325MG TAB PO PRN (04:08)
[2023-11-06 07:50] LABS: HEMATOCRIT 26.8 % (36.0-47.0); HEMOGLOBIN 9.5 g/dl (12.0-15.5); MEAN CORPUSCULAR HEMOGLOBIN 35.1 pg (27.0-33.0); MEAN CORPUSCULAR HGB CONC 35.4 g/dl (32.0-36.5); MEAN CORPUSCULAR VOLUME 98.9 fl (80.0-96.0); PLATELET COUNT, AUTOMATED 898 10^3/uL (150-450); RED BLOOD COUNT 2.71 10^6/uL (4.00-5.40)
[2023-11-06 07:55] LABS: WHITE BLOOD COUNT 161.5 10^3/uL (4.0-10.0)
[2023-11-06 08:22] LABS: BLOOD UREA NITROGEN 31 MG/DL (9-23); CALCIUM LEVEL 8.7 MG/DL (8.3-10.6); CARBON DIOXIDE LEVEL 24 MMOL/L (20-31); CHLORIDE LEVEL 106 MMOL/L (98-107); CREATININE FOR GFR 0.82 MG/DL (0.55-1.30); GLOMERULAR FILTRATION RATE > 60.0 (>39); GLUCOSE, FASTING 103 MG/DL (74-106); MAGNESIUM LEVEL 2.2 MG/DL (1.8-2.4); POTASSIUM SERUM 3.9 MMOL/L (3.5-5.1); SODIUM LEVEL 136 MMOL/L (136-145)
[2023-11-06 08:42] LABS: BASOPHILS 4 % (0-1); EOSINOPHILS 3 % (0-3); LYMPHOCYTES 3 % (16-44); METAMYELOCYTES 8 % (0-0); MONOCYTES 1 % (0-5); MYELOCYTES 11 % (0-0); NEUTROPHILS 49 % (28-66); PROMYELOCYTES 2 % (0-0)
[2023-11-06 08:44] LABS: ATYPICAL LYMPH 1 % (0-5); BLAST CELLS 7 % (0-0)
[2023-11-06 08:45] LABS: ANISOCYTOSIS 1+; PLATELET ESTIMATE INCREASED (NORMAL)
[2023-11-06] MEDS: HYDROXYUREA 500 MG CAP PO SCH (08:45)
[2023-11-06] MEDS ORDERED: IMATINIB PO SCH (09:00)
[2023-11-06] MEDS ORDERED: ENOXAPARIN 40MG/0.4ML SYRINGE (J1650 PER 10MG) SC SCH (09:00)
[2023-11-06] MEDS: REMDESIVIR 100 MG in NS 250 ML IV SCH (12:37)
[2023-11-06] MEDS: methylPREDNISolone 40MG 1ML VIAL IV ONE (17:24)
[2023-11-06] MEDS: KETOROLAC 30 MG/ML 1ML VIAL IV ONE (17:25)
[2023-11-06] MEDS: MORPHINE 4 MG/ML 1ML VIAL IV ONE (17:26)
[2023-11-07 05:41] VITALS: BP 141/70; TEMP 97.6; O2SAT 98
[2023-11-07 07:36] LABS: BASO # 12.1 10^3/uL (0.0-0.2); BASO % 6.6 % (0.0-1.0); EOS # 2.6 10^3/uL (0.0-0.5); EOS % 1.4 % (0.0-3.0); HEMATOCRIT 29.4 % (36.0-47.0); HEMOGLOBIN 10.3 g/dl (12.0-15.5); LYMPH # 6.6 10^3/uL (1.5-5.0); LYMPH % 3.6 % (24.0-44.0); MEAN CORPUSCULAR HEMOGLOBIN 34.4 pg (27.0-33.0); MEAN CORPUSCULAR VOLUME 98.3 fl (80.0-96.0); MONO # 5.2 10^3/uL (0.0-0.8); MONO % 2.8 % (2.0-8.0); NEUTROPHILS # 107.2 10^3/uL (1.5-8.5); NEUTROPHILS % 58.5 % (36.0-66.0); RED BLOOD COUNT 2.99 10^6/uL (4.00-5.40); WHITE BLOOD COUNT 183.3 10^3/uL (4.0-10.0)
[2023-11-07 07:38] LABS: PLATELET COUNT, AUTOMATED 1027 10^3/uL (150-450)
[2023-11-07 08:03] LABS: BLOOD UREA NITROGEN 41 MG/DL (9-23); CALCIUM LEVEL 9.1 MG/DL (8.3-10.6); CARBON DIOXIDE LEVEL 22 MMOL/L (20-31); CHLORIDE LEVEL 103 MMOL/L (98-107); CREATININE FOR GFR 0.97 MG/DL (0.55-1.30); GLOMERULAR FILTRATION RATE > 60.0 (>39); GLUCOSE, FASTING 283 MG/DL (74-106); MAGNESIUM LEVEL 2.1 MG/DL (1.8-2.4); POTASSIUM SERUM 4.7 MMOL/L (3.5-5.1); SODIUM LEVEL 134 MMOL/L (136-145)
[2023-11-07] MEDS: KETOROLAC 30 MG/ML 1ML VIAL IV ONE (08:45)
[2023-11-07 14:15] VITALS: BP 133/64; TEMP 97.9; O2SAT 95
[2023-11-07 20:00] VITALS: O2SAT 94
[2023-11-07 20:02] VITALS: BP 130/65; TEMP 97.7; O2SAT 94
[2023-11-08] VITALS (8 sets, daily range): BP systolic 152–158; BP diastolic 70–82; TEMP 97.5–97.9; O2SAT 94–98
[2023-11-08] MEDS: ACETAMINOPHEN 500 MG TAB PO PRN (02:49)
[2023-11-09] VITALS: O2SAT 95
[2023-11-09 04:00] VITALS: O2SAT 98
[2023-11-09] MEDS ORDERED: PERCOCET 5MG/325MG TAB PO PRN (07:30)
[2023-11-09] MEDS: DOCUSATE SODIUM 100MG CAPSULE PO SCH (08:57)
[2023-11-09 14:34] VITALS: BP 137/68; TEMP 97.7; O2SAT 96
[2023-11-09] MEDS: TORSEMIDE 20 MG TAB PO SCH (17:00)
[2023-11-09 20:00] VITALS: O2SAT 95
[2023-11-09] MEDS: LEVEMIR (INSULIN DETEMIR) 1 UNITS/0.01ML SC SCH (20:44)
[2023-11-09] MEDS: GABAPENTIN 100 MG CAP PO SCH (20:46)
[2023-11-09] MEDS: PERCOCET 5MG/325MG TAB PO PRN (20:47)
[2023-11-10] VITALS: O2SAT 96
[2023-11-10 04:00] VITALS: O2SAT 94
[2023-11-10 05:22] VITALS: BP 117/72; TEMP 97.5; O2SAT 92
[2023-11-10 07:05] LABS: HEMATOCRIT 28.2 % (36.0-47.0); MEAN CORPUSCULAR HEMOGLOBIN 35.1 pg (27.0-33.0); MEAN CORPUSCULAR HGB CONC 35.5 g/dl (32.0-36.5); MEAN CORPUSCULAR VOLUME 98.9 fl (80.0-96.0); RED BLOOD COUNT 2.85 10^6/uL (4.00-5.40)
[2023-11-10 07:11] LABS: PLATELET COUNT, AUTOMATED 1224 10^3/uL (150-450); WHITE BLOOD COUNT 166.1 10^3/uL (4.0-10.0)
[2023-11-10 07:28] LABS: ALBUMIN 2.8 G/DL (3.2-5.2); ALKALINE PHOSPHATASE 87 U/L (46-116); ALT/SGPT 34 U/L (7.0-40); AST/SGOT 17 U/L (<34); BILIRUBIN,TOTAL 0.5 MG/DL (0.3-1.2); BLOOD UREA NITROGEN 53 MG/DL (9-23); CALCIUM LEVEL 8.9 MG/DL (8.3-10.6); CARBON DIOXIDE LEVEL 25 MMOL/L (20-31); CHLORIDE LEVEL 105 MMOL/L (98-107); CREATININE FOR GFR 0.93 MG/DL (0.55-1.30); GLOMERULAR FILTRATION RATE > 60.0 (>39); GLUCOSE, FASTING 182 MG/DL (74-106); POTASSIUM SERUM 4.3 MMOL/L (3.5-5.1); SODIUM LEVEL 136 MMOL/L (136-145); TOTAL PROTEIN 5.4 G/DL (5.7-8.2)
[2023-11-10 09:53] VITALS: O2SAT 94
[2023-11-10] MEDS: MIRALAX *UNIT DOSE* 17GM PACKET PO PRN (11:52)
[2023-11-10 14:39] VITALS: BP 117/60; TEMP 97.5; O2SAT 98
[2023-11-10 22:16] VITALS: BP 142/75; TEMP 97.1; O2SAT 96
[2023-11-11 07:01] VITALS: BP 104/64; TEMP 97.3; O2SAT 100
[2023-11-11] MEDS ORDERED: MIRA33506 PO (13:04)
[2023-11-11] MEDS ORDERED: COLA100C5 PO (13:04)
[2023-11-11] MEDS ORDERED: PERCOCET PO (13:04)
[2023-11-11] MEDS ORDERED: ACET1TAB55 PO (13:04)
[2023-11-11] MEDS ORDERED: GABA-1171 PO (13:04)
[2023-11-11 14:14] VITALS: BP 110/54; TEMP 97.9; O2SAT 100
== END 2023-11-11 15:20 | disposition home health service (06) | DRG 947 ==
LOC: M ED 19:21 → EDBD 19:21 → M ED INP 23:32 → ENRESERV 11-05 → M MS5PR 11-05 00:54
PROVIDERS: ADMIT Family Medicine; ATTEND Internal Medicine
PROC: XW033E5 Introduction of Remdesivir Anti-infective into Peripheral Vein, Percutaneous Approach, New Technology Group 5 (ICD-10-PCS; principal; 2023-11-05)
DX: G89.3 Neoplasm related pain (acute) (chronic) (principal); U07.1 COVID-19; I50.42 Chronic combined systolic (congestive) and diastolic (congestive) heart failure; C92.10 Chronic myeloid leukemia, BCR/ABL-positive, not having achieved remission; I11.0 Hypertensive heart disease with heart failure; I25.10 Atherosclerotic heart disease of native coronary artery without angina pectoris; I25.2 Old myocardial infarction; E03.9 Hypothyroidism, unspecified; E78.00 Pure hypercholesterolemia, unspecified; I48.91 Unspecified atrial fibrillation; G47.33 Obstructive sleep apnea (adult) (pediatric); E11.65 Type 2 diabetes mellitus with hyperglycemia; Z66 Do not resuscitate; F32.A Depression, unspecified; E11.42 Type 2 diabetes mellitus with diabetic polyneuropathy; D75.839 Thrombocytosis, unspecified; R53.1 Weakness; Q96.8 Other variants of Turner's syndrome; I49.5 Sick sinus syndrome; D63.8 Anemia in other chronic diseases classified elsewhere; Z86.73 Personal history of transient ischemic attack (TIA), and cerebral infarction without residual deficits; Z95.5 Presence of coronary angioplasty implant and graft; Z95.0 Presence of cardiac pacemaker; Z88.0 Allergy status to penicillin; Z88.1 Allergy status to other antibiotic agents; Z88.2 Allergy status to sulfonamides; Z88.8 Allergy status to other drugs, medicaments and biological substances; Z79.01 Long term (current) use of anticoagulants; Z79.4 Long term (current) use of insulin; Z79.890 Hormone replacement therapy; Z79.899 Other long term (current) drug therapy; Z86.718 Personal history of other venous thrombosis and embolism

== ENCOUNTER → 2023-11-24 | Outpatient (REF) | payer MEDICARE, MEDICAID ==
[~2023-11-24] MED LIST changes: +ACET1TAB55 PO; +COLA100C5 PO; +ELIQ2.5T PO; +FLON1SPR NARES; +GABA-1171 PO; +MIRA33506 PO; +PERCOCET PO; +SYST1SOL4 OU; +XALA0.007 OU
[2023-11-24 15:07] LABS: BASO # 7.9 10^3/uL (0.0-0.2); BASO % 21.7 % (0.0-1.0); EOS # 2.1 10^3/uL (0.0-0.5); EOS % 5.7 % (0.0-3.0); HEMATOCRIT 29.1 % (36.0-47.0); HEMOGLOBIN 9.8 g/dl (12.0-15.5); LYMPH # 7.7 10^3/uL (1.5-5.0); LYMPH % 21.1 % (24.0-44.0); MEAN CORPUSCULAR HEMOGLOBIN 33.6 pg (27.0-33.0); MEAN CORPUSCULAR HGB CONC 33.7 g/dl (32.0-36.5); MEAN CORPUSCULAR VOLUME 99.7 fl (80.0-96.0); MONO # 1.5 10^3/uL (0.0-0.8); MONO % 4.1 % (2.0-8.0); NEUTROPHILS # 12.2 10^3/uL (1.5-8.5); RED BLOOD COUNT 2.92 10^6/uL (4.00-5.40)
[2023-11-24 15:15] LABS: PLATELET COUNT, AUTOMATED 1051 10^3/uL (150-450); WHITE BLOOD COUNT 36.2 10^3/uL (4.0-10.0)
[2023-11-24 15:48] LABS: ALBUMIN 3.3 G/DL (3.2-5.2); ALKALINE PHOSPHATASE 90 U/L (46-116); ALT/SGPT 16 U/L (7.0-40); AST/SGOT 10 U/L (<34); BILIRUBIN,TOTAL 0.4 MG/DL (0.3-1.2); BLOOD UREA NITROGEN 36 MG/DL (9-23); CALCIUM LEVEL 8.7 MG/DL (8.3-10.6); CARBON DIOXIDE LEVEL 26 MMOL/L (20-31); CHLORIDE LEVEL 101 MMOL/L (98-107); CREATININE FOR GFR 0.89 MG/DL (0.55-1.30); GLOMERULAR FILTRATION RATE > 60.0 (>39); GLUCOSE, FASTING 253 MG/DL (74-106); PHOSPHORUS LEVEL 4.4 MG/DL (2.4-5.1); POTASSIUM SERUM 4.9 MMOL/L (3.5-5.1); SODIUM LEVEL 135 MMOL/L (136-145); TOTAL PROTEIN 6.1 G/DL (5.7-8.2)
[2023-11-24 16:00] LABS: BASOPHILS 19 % (0-1); EOSINOPHILS 1 % (0-3); HYPOCHROMASIA 2+; LYMPHOCYTES 6 % (16-44); METAMYELOCYTES 2 % (0-0); MONOCYTES 2 % (0-5); MYELOCYTES 2 % (0-0); NEUTROPHILS 64 % (28-66); PLATELET ESTIMATE INCREASED (NORMAL)
[2023-11-24 16:01] LABS: ANISOCYTOSIS 1+
== END ==
LOC: M LAB REF 14:33
PROVIDERS: ATTEND Internal Medicine Cardiovascular Disease
DX: I11.0 Hypertensive heart disease with heart failure (principal); I50.22 Chronic systolic (congestive) heart failure

== ENCOUNTER → 2023-12-07 | Outpatient (CLI) | payer MEDICARE, MEDICAID ==
[~2023-12-07] VITALS: Ht 152.4 cm; Wt 80.6 kg
[2023-12-07 10:18] VITALS: BP 151/71; O2SAT 99
== END ==
LOC: M PAL 09:19
PROVIDERS: ATTEND Nurse Practitioner Adult Health
DX: G89.29 Other chronic pain (principal); G89.3 Neoplasm related pain (acute) (chronic); G62.9 Polyneuropathy, unspecified; M54.50 Low back pain, unspecified; M79.604 Pain in right leg; M25.551 Pain in right hip; I50.810 Right heart failure, unspecified; K59.00 Constipation, unspecified; R53.81 Other malaise; R22.43 Localized swelling, mass and lump, lower limb, bilateral; C92.10 Chronic myeloid leukemia, BCR/ABL-positive, not having achieved remission; Z51.5 Encounter for palliative care; Z79.891 Long term (current) use of opiate analgesic; Z79.51 Long term (current) use of inhaled steroids; Z79.01 Long term (current) use of anticoagulants; Z79.890 Hormone replacement therapy; Z79.4 Long term (current) use of insulin; Z79.84 Long term (current) use of oral hypoglycemic drugs; Z79.899 Other long term (current) drug therapy; Z86.19 Personal history of other infectious and parasitic diseases; Z86.73 Personal history of transient ischemic attack (TIA), and cerebral infarction without residual deficits; Z88.0 Allergy status to penicillin; Z88.1 Allergy status to other antibiotic agents; Z88.2 Allergy status to sulfonamides; Z88.8 Allergy status to other drugs, medicaments and biological substances; Z90.722 Acquired absence of ovaries, bilateral

== ENCOUNTER → 2023-12-17 | Outpatient (REF) | payer MEDICARE, MEDICAID ==
[2023-12-17 10:45] LABS: HEMATOCRIT 29.4 % (36.0-47.0); HEMOGLOBIN 9.9 g/dl (12.0-15.5); MEAN CORPUSCULAR HEMOGLOBIN 33.9 pg (27.0-33.0); MEAN CORPUSCULAR HGB CONC 33.7 g/dl (32.0-36.5); MEAN CORPUSCULAR VOLUME 100.7 fl (80.0-96.0); RED BLOOD COUNT 2.92 10^6/uL (4.00-5.40); WHITE BLOOD COUNT 25.8 10^3/uL (4.0-10.0)
[2023-12-17 11:16] LABS: PLATELET COUNT, AUTOMATED 1485 10^3/uL (150-450)
[2023-12-17 11:52] LABS: ALBUMIN 3.7 G/DL (3.2-5.2); ALKALINE PHOSPHATASE 107 U/L (46-116); ALT/SGPT 16 U/L (7.0-40); AST/SGOT 16 U/L (<34); BILIRUBIN,TOTAL 0.4 MG/DL (0.3-1.2); BLOOD UREA NITROGEN 32 MG/DL (9-23); CALCIUM LEVEL 9.4 MG/DL (8.3-10.6); CARBON DIOXIDE LEVEL 26 MMOL/L (20-31); CHLORIDE LEVEL 100 MMOL/L (98-107); CREATININE FOR GFR 0.88 MG/DL (0.55-1.30); GLOMERULAR FILTRATION RATE > 60.0 (>39); GLUCOSE, FASTING 139 MG/DL (74-106); POTASSIUM SERUM 4.5 MMOL/L (3.5-5.1); SODIUM LEVEL 135 MMOL/L (136-145); TOTAL PROTEIN 6.6 G/DL (5.7-8.2)
[2023-12-17 12:05] LABS: ATYPICAL LYMPH 1 % (0-5); BASOPHILS 26 % (0-1); EOSINOPHILS 11 % (0-3); LYMPHOCYTES 4 % (16-44); METAMYELOCYTES 1 % (0-0); MONOCYTES 2 % (0-5); NEUTROPHILS 52 % (28-66)
[2023-12-17 12:06] LABS: PLATELET ESTIMATE INCREASED (NORMAL); SMUDGE CELLS 1+
[2023-12-17 12:07] LABS: ANISOCYTOSIS 1+
== END ==
LOC: M LAB REF 10:17
PROVIDERS: ATTEND Internal Medicine Cardiovascular Disease
DX: Z00.00 Encounter for general adult medical examination without abnormal findings (principal); Z01.89 Encounter for other specified special examinations

== ENCOUNTER 2023-12-29 12:08 | Observation (INO) | payer MEDICARE, MEDICAID ==
[~2023-12-29] VITALS: Ht 152.4 cm; Wt 82.0 kg
[2023-12-29 13:09] LABS: VENOUS BASE EXCESS -0.4 (-2.0-2.0); VENOUS HCO3 24.8 MMOL/L (23.0-27.0); VENOUS O2 SATURATION 68.1 % (60.0-80.0); VENOUS PARTIAL PRESSURE CO2 42.9 mmHg (38.0-50.0); VENOUS PARTIAL PRESSURE O2 35.6 mmHg (30.0-50.0); VENOUS STANDARD HCO3 23.6 MMOL/L; VENOUS TOTAL CO2 26.1 MMOL/L (24.0-28.0)
[2023-12-29 13:26] LABS: BASO # 17.9 10^3/uL (0.0-0.2); BASO % 14.7 % (0.0-1.0); EOS # 2.1 10^3/uL (0.0-0.5); EOS % 1.7 % (0.0-3.0); HEMATOCRIT 28.3 % (36.0-47.0); HEMOGLOBIN 9.7 g/dl (12.0-15.5); LYMPH # 8.2 10^3/uL (1.5-5.0); LYMPH % 6.7 % (24.0-44.0); MEAN CORPUSCULAR HEMOGLOBIN 34.5 pg (27.0-33.0); MEAN CORPUSCULAR HGB CONC 34.3 g/dl (32.0-36.5); MEAN CORPUSCULAR VOLUME 100.7 fl (80.0-96.0); MONO % 3.9 % (2.0-8.0); NEUTROPHILS # 44.6 10^3/uL (1.5-8.5); NEUTROPHILS % 36.6 % (36.0-66.0); RED BLOOD COUNT 2.81 10^6/uL (4.00-5.40)
[2023-12-29 13:36] LABS: MONO # 4.8 10^3/uL (0.0-0.8); PLATELET COUNT, AUTOMATED 1740 10^3/uL (150-450)
[2023-12-29 13:37] LABS: WHITE BLOOD COUNT 121.8 10^3/uL (4.0-10.0)
[2023-12-29 13:39] LABS: INR 1.43
[2023-12-29 14:43] LABS: ALBUMIN 3.6 G/DL (3.2-5.2); ALKALINE PHOSPHATASE 112 U/L (46-116); ALT/SGPT 29 U/L (7.0-40); AST/SGOT 45 U/L (<34); BILIRUBIN,DIRECT 0.1 MG/DL (<0.4); BILIRUBIN,TOTAL 0.3 MG/DL (0.3-1.2); BLOOD UREA NITROGEN 27 MG/DL (9-23); CALCIUM LEVEL 9.5 MG/DL (8.3-10.6); CARBON DIOXIDE LEVEL 27 MMOL/L (20-31); CHLORIDE LEVEL 101 MMOL/L (98-107); CK-MB VALUE MASS < 1.0 NG/ML (<3.6); CPK CREATINE PHOSPHOKINASE 36 U/L (34-145); FREE T4 1.05 NG/DL (0.89-1.76); GLOMERULAR FILTRATION RATE > 60.0 (>39); GLUCOSE, FASTING 185 MG/DL (74-106); MB/CK RELATIVE INDEX 2.77 (< OR =4); POTASSIUM SERUM 4.7 MMOL/L (3.5-5.1); SODIUM LEVEL 136 MMOL/L (136-145); THYROID STIMULATING HORMONE 9.755 uIU/ML (0.55-4.78); TOTAL PROTEIN 6.6 G/DL (5.7-8.2)
[2023-12-29] MEDS: MORPHINE 4 MG/ML 1ML VIAL IV ONE ×2 (14:44→17:07)
[2023-12-29 15:41] LABS: CK-MB VALUE MASS < 1.0 NG/ML (<3.6)
[2023-12-29 15:44] LABS: CPK CREATINE PHOSPHOKINASE 32 U/L (34-145); MB/CK RELATIVE INDEX 3.12 (< OR =4)
[2023-12-29] MEDS: FUROSEMIDE 40MG/4ML VIAL IV ONE (16:16)
[2023-12-29] MEDS ORDERED: OXYC1TAB23 PO (18:26)
[2023-12-29] MEDS ORDERED: APAP325T4 PO (18:26)
[2023-12-29] MEDS ORDERED: DOCU100C16 PO (18:26)
[2023-12-29] MEDS ORDERED: GABA-1171 PO (18:26)
[2023-12-29] MEDS ORDERED: HOME MED LIST COMPLETE! XX SCH (18:30)
[2023-12-29] MEDS ORDERED: GLUCOSE 4 GM CHEW PO PRN (22:10)
[2023-12-29] MEDS ORDERED: ACETAMINOPHEN TAB 650MG DOSE (2X325MG) PO PRN (22:10)
[2023-12-29] MEDS ORDERED: DEXTROSE 50% 50ML SYRINGE IV PRN (22:10)
[2023-12-29] MEDS ORDERED: MAALOX 30 ML SUSP *UDC PO PRN (22:10)
[2023-12-29] MEDS ORDERED: MECLIZINE 12.5 MG TAB PO PRN (22:10)
[2023-12-29] MEDS ORDERED: MOM 30ML SUSPENSION UDC PO PRN (22:10)
[2023-12-29] MEDS ORDERED: NITROGLYCERIN 0.4MG SUBL TABLET SL PRN (22:10)
[2023-12-29] MEDS ORDERED: FLUTICASONE PROP 0.05% NASAL SPRAY 16 GM (FLONASE) NARES PRN (22:10)
[2023-12-29] MEDS ORDERED: GLUCAGON INJ 1MG VIAL SC PRN (22:10)
[2023-12-29] MEDS: INSULIN LISPRO (NovoLOG) PER UNIT SC SCH (22:31)
[2023-12-29] MEDS: PERCOCET 5MG/325MG TAB PO PRN (22:49)
[2023-12-30] VITALS (10 sets, daily range): BP systolic 120–168; BP diastolic 59–74; TEMP 97–97.6; O2SAT 96–98
[2023-12-30 06:27] LABS: HEMATOCRIT 28.6 % (36.0-47.0); MEAN CORPUSCULAR HEMOGLOBIN 35.1 pg (27.0-33.0); MEAN CORPUSCULAR VOLUME 100.4 fl (80.0-96.0); RED BLOOD COUNT 2.85 10^6/uL (4.00-5.40)
[2023-12-30] MEDS: PERCOCET 5MG/325MG TAB PO PRN (06:30)
[2023-12-30 06:46] LABS: ALBUMIN 3.3 G/DL (3.2-5.2); ALKALINE PHOSPHATASE 105 U/L (46-116); ALT/SGPT 22 U/L (7.0-40); AST/SGOT 37 U/L (<34); BILIRUBIN,TOTAL 0.4 MG/DL (0.3-1.2); BLOOD UREA NITROGEN 25 MG/DL (9-23); CALCIUM LEVEL 9.5 MG/DL (8.3-10.6); CARBON DIOXIDE LEVEL 26 MMOL/L (20-31); CHLORIDE LEVEL 104 MMOL/L (98-107); GLOMERULAR FILTRATION RATE > 60.0 (>39); GLUCOSE, FASTING 124 MG/DL (74-106); POTASSIUM SERUM 4.9 MMOL/L (3.5-5.1); SODIUM LEVEL 137 MMOL/L (136-145); TOTAL PROTEIN 6.6 G/DL (5.7-8.2)
[2023-12-30 06:49] LABS: PLATELET COUNT, AUTOMATED 1758 10^3/uL (150-450); WHITE BLOOD COUNT 147.8 10^3/uL (4.0-10.0)
[2023-12-30] MEDS: LEVOTHYROXINE 88MCG TABLET (0.088 MG) PO SCH (07:29)
[2023-12-30] MEDS ORDERED: POTASSIUM CHLORIDE 10MEQ SR TABLET PO SCH (09:00)
[2023-12-30] MEDS: APIXABAN 2.5 MG TAB (ELIQUIS) PO SCH (09:08)
[2023-12-30] MEDS: SPIRONOLACTONE 12.5MG PER 1/2 TABLET PO SCH (09:09)
[2023-12-30] MEDS: FUROSEMIDE 40MG/4ML VIAL IV SCH ×2 (09:09→20:49)
[2023-12-30] MEDS: INSULIN LISPRO (NovoLOG) PER UNIT SC SCH (09:09)
[2023-12-30] MEDS: DOCUSATE SODIUM 100MG CAPSULE PO SCH (09:09)
[2023-12-30] MEDS: HYDROXYUREA 500 MG CAP PO SCH (09:16)
[2023-12-30] MEDS: LEVEMIR (INSULIN DETEMIR) 1 UNITS/0.01ML SC SCH (20:48)
[2023-12-30] MEDS ORDERED: LEVEMIR (INSULIN DETEMIR) 1 UNITS/0.01ML SC SCH (21:00)
[2023-12-31] VITALS (7 sets, daily range): BP systolic 118–146; BP diastolic 64–70; TEMP 96.8–97.6; O2SAT 90–100
[2023-12-31 05:57] LABS: HEMATOCRIT 27.9 % (36.0-47.0); HEMOGLOBIN 9.7 g/dl (12.0-15.5); MEAN CORPUSCULAR HEMOGLOBIN 34.4 pg (27.0-33.0); MEAN CORPUSCULAR HGB CONC 34.8 g/dl (32.0-36.5); MEAN CORPUSCULAR VOLUME 98.9 fl (80.0-96.0); RED BLOOD COUNT 2.82 10^6/uL (4.00-5.40)
[2023-12-31 05:58] LABS: PLATELET COUNT, AUTOMATED 1688 10^3/uL (150-450); WHITE BLOOD COUNT 139.5 10^3/uL (4.0-10.0)
[2023-12-31 06:13] LABS: BLOOD UREA NITROGEN 26 MG/DL (9-23); CALCIUM LEVEL 9.6 MG/DL (8.3-10.6); CARBON DIOXIDE LEVEL 29 MMOL/L (20-31); CHLORIDE LEVEL 100 MMOL/L (98-107); CREATININE FOR GFR 0.91 MG/DL (0.55-1.30); GLOMERULAR FILTRATION RATE > 60.0 (>39); GLUCOSE, FASTING 73 MG/DL (74-106); MAGNESIUM LEVEL 1.9 MG/DL (1.8-2.4); POTASSIUM SERUM 4.2 MMOL/L (3.5-5.1); SODIUM LEVEL 138 MMOL/L (136-145)
[2023-12-31 06:49] LABS: ATYPICAL LYMPH 1 % (0-5); BASOPHILS 14 % (0-1); EOSINOPHILS 3 % (0-3); LYMPHOCYTES 6 % (16-44); METAMYELOCYTES 5 % (0-0); MONOCYTES 4 % (0-5); MYELOCYTES 14 % (0-0); NEUTROPHILS 39 % (28-66); PLATELET ESTIMATE INCREASED (NORMAL); PROMYELOCYTES 1 % (0-0)
[2023-12-31 06:51] LABS: ANISOCYTOSIS 2+
[2023-12-31 06:52] LABS: POIKILOCYTOSIS 1+
[2023-12-31] MEDS ORDERED: GABAPENTIN 100 MG CAP PO PRN (09:00)
[2023-12-31] MEDS: HYDROXYUREA 500 MG CAP PO SCH (09:57)
[2023-12-31] MEDS ORDERED: INSULADS SC ×2 (11:04→12:22)
[2023-12-31] MEDS ORDERED: LEVEMIR (INSULIN DETEMIR) 1 UNITS/0.01ML SC SCH (21:00)
== END 2023-12-31 14:13 | disposition home health service (06) ==
LOC: EDBD 12:08 → M ED 12:08 → M ED INP 12-30 10:38 → M PCU 12-30 13:09
PROVIDERS: ADMIT Internal Medicine; ATTEND Internal Medicine
DX: I50.20 Unspecified systolic (congestive) heart failure (principal); R06.00 Dyspnea, unspecified; R60.0 Localized edema; G89.3 Neoplasm related pain (acute) (chronic); D72.829 Elevated white blood cell count, unspecified; D75.838 Other thrombocytosis; C92.90 Myeloid leukemia, unspecified, not having achieved remission; I48.91 Unspecified atrial fibrillation; I48.92 Unspecified atrial flutter; I25.10 Atherosclerotic heart disease of native coronary artery without angina pectoris; E78.5 Hyperlipidemia, unspecified; I25.2 Old myocardial infarction; Z95.5 Presence of coronary angioplasty implant and graft; I49.5 Sick sinus syndrome; Z95.0 Presence of cardiac pacemaker; Z86.73 Personal history of transient ischemic attack (TIA), and cerebral infarction without residual deficits; E11.42 Type 2 diabetes mellitus with diabetic polyneuropathy; I11.0 Hypertensive heart disease with heart failure; E03.9 Hypothyroidism, unspecified; H81.10 Benign paroxysmal vertigo, unspecified ear; G47.33 Obstructive sleep apnea (adult) (pediatric); Q96.8 Other variants of Turner's syndrome; M25.569 Pain in unspecified knee; M71.22 Synovial cyst of popliteal space [Baker], left knee; Z88.1 Allergy status to other antibiotic agents; Z88.2 Allergy status to sulfonamides; Z88.8 Allergy status to other drugs, medicaments and biological substances; Z79.899 Other long term (current) drug therapy; Z79.01 Long term (current) use of anticoagulants; Z79.4 Long term (current) use of insulin; Z79.890 Hormone replacement therapy
CPT/HCPCS: 36415; 71045; 73502; 73564; 73700; 80048; 80053; 80076; 80503; 82550; 82553; 82803; 83605; 83735; 83880; 84439; 84443; 84484; 85025; 85027; 85610; 86140; 87040; 93005; 93041; 93970; 94760; 96374; 96375; 96376; 97161; 97165; 97530; 99285; J1815; J1940

== ENCOUNTER → 2024-01-10 | Outpatient (REF) | payer MEDICARE, MEDICAID ==
[~2024-01-10] MED LIST changes: +APAP325T4 PO; +DOCU100C16 PO; +OXYC1TAB23 PO
[2024-01-10 18:22] LABS: HEMOGLOBIN A1c 9.4 % (4.0-6.0)
[2024-01-10 18:27] LABS: ALBUMIN 3.7 G/DL (3.2-5.2); ALKALINE PHOSPHATASE 82 U/L (46-116); ALT/SGPT 16 U/L (7.0-40); AST/SGOT 15 U/L (<34); BILIRUBIN,TOTAL 0.5 MG/DL (0.3-1.2); BLOOD UREA NITROGEN 30 MG/DL (9-23); CALCIUM LEVEL 9.5 MG/DL (8.3-10.6); CARBON DIOXIDE LEVEL 26 MMOL/L (20-31); CHLORIDE LEVEL 103 MMOL/L (98-107); CREATININE FOR GFR 0.89 MG/DL (0.55-1.30); GLOMERULAR FILTRATION RATE > 60.0 (>39); GLUCOSE, FASTING 202 MG/DL (74-106); POTASSIUM SERUM 4.7 MMOL/L (3.5-5.1); SODIUM LEVEL 137 MMOL/L (136-145); TOTAL PROTEIN 6.8 G/DL (5.7-8.2)
== END ==
LOC: M SFHCCLAY 11:02
PROVIDERS: ATTEND Nurse Practitioner Family
DX: E11.9 Type 2 diabetes mellitus without complications (principal)

== ENCOUNTER → 2024-01-19 | Outpatient (CLI) | payer MEDICARE, MEDICAID ==
[~2024-01-19] VITALS: Ht 152.4 cm; Wt 79.9 kg
[~2024-01-19] MED LIST changes: +ACET-683 PO; +ONDA-282 PO; -ONDA4TAB6 PO; +OXYC-517 PO
[2024-01-19 10:54] VITALS: BP 153/70; O2SAT 100
== END ==
LOC: M PAL 10:23
PROVIDERS: ATTEND Nurse Practitioner Adult Health
DX: G89.29 Other chronic pain (principal); G89.3 Neoplasm related pain (acute) (chronic); I50.810 Right heart failure, unspecified; K59.00 Constipation, unspecified; R53.81 Other malaise; R22.43 Localized swelling, mass and lump, lower limb, bilateral; C92.10 Chronic myeloid leukemia, BCR/ABL-positive, not having achieved remission; Z51.5 Encounter for palliative care; Z79.891 Long term (current) use of opiate analgesic; Z79.51 Long term (current) use of inhaled steroids; Z79.01 Long term (current) use of anticoagulants; Z79.890 Hormone replacement therapy; Z79.4 Long term (current) use of insulin; Z79.84 Long term (current) use of oral hypoglycemic drugs; Z79.899 Other long term (current) drug therapy; Z86.19 Personal history of other infectious and parasitic diseases; Z86.73 Personal history of transient ischemic attack (TIA), and cerebral infarction without residual deficits; Z88.0 Allergy status to penicillin; Z88.1 Allergy status to other antibiotic agents; Z88.2 Allergy status to sulfonamides; Z88.8 Allergy status to other drugs, medicaments and biological substances; Z90.722 Acquired absence of ovaries, bilateral

== ENCOUNTER → 2024-01-28 | Outpatient (REF) | payer MEDICARE, MEDICAID ==
[2024-01-28 18:35] LABS: HEMATOCRIT 29.8 % (36.0-47.0); HEMOGLOBIN 9.8 g/dl (12.0-15.5); MEAN CORPUSCULAR HEMOGLOBIN 34.1 pg (27.0-33.0); MEAN CORPUSCULAR HGB CONC 32.9 g/dl (32.0-36.5); MEAN CORPUSCULAR VOLUME 103.8 fl (80.0-96.0); RED BLOOD COUNT 2.87 10^6/uL (4.00-5.40)
[2024-01-28 18:50] LABS: ALBUMIN 3.7 G/DL (3.2-5.2); CALCIUM LEVEL 9.4 MG/DL (8.3-10.6); CREATININE FOR GFR 0.99 MG/DL (0.55-1.30); GLOMERULAR FILTRATION RATE 58.9 (>39); PHOSPHORUS LEVEL 5.2 MG/DL (2.4-5.1); POTASSIUM SERUM 4.9 MMOL/L (3.5-5.1)
[2024-01-28 19:00] LABS: PLATELET COUNT, AUTOMATED 1005 10^3/uL (150-450)
[2024-01-28 20:06] LABS: ATYPICAL LYMPH 1 % (0-5); BASOPHILS 11 % (0-1); EOSINOPHILS 15 % (0-3); LYMPHOCYTES 6 % (16-44); METAMYELOCYTES 2 % (0-0); MONOCYTES 4 % (0-5); MYELOCYTES 2 % (0-0); NEUTROPHILS 56 % (28-66)
[2024-01-28 20:07] LABS: PLATELET ESTIMATE INCREASED (NORMAL); SMUDGE CELLS 2+
[2024-01-28 20:08] LABS: POIKILOCYTOSIS 2+; SCHISTOCYTES 1+
== END ==
LOC: M LAB REF 16:37
PROVIDERS: ATTEND Internal Medicine Cardiovascular Disease
DX: I50.22 Chronic systolic (congestive) heart failure (principal); I25.10 Atherosclerotic heart disease of native coronary artery without angina pectoris; I27.81 Cor pulmonale (chronic); I11.0 Hypertensive heart disease with heart failure

== ENCOUNTER → 2024-02-09 | Outpatient (CLI) | payer MEDICARE, MEDICAID | LOC: M PAL 10:19 | PROVIDERS: ATTEND Nurse Practitioner Adult Health | DX: G89.3 Neoplasm related pain (acute) (chronic) (principal); R60.9 Edema, unspecified; C92.10 Chronic myeloid leukemia, BCR/ABL-positive, not having achieved remission; M25.559 Pain in unspecified hip; M54.9 Dorsalgia, unspecified; Z51.5 Encounter for palliative care; Z79.891 Long term (current) use of opiate analgesic; Z79.4 Long term (current) use of insulin; Z79.51 Long term (current) use of inhaled steroids; Z79.01 Long term (current) use of anticoagulants; Z79.899 Other long term (current) drug therapy; Z79.84 Long term (current) use of oral hypoglycemic drugs; Z88.1 Allergy status to other antibiotic agents; Z88.2 Allergy status to sulfonamides; Z88.8 Allergy status to other drugs, medicaments and biological substances ==

== ENCOUNTER 2024-03-08 15:20 | Inpatient (IN) | payer MEDICARE, MEDICAID ==
[~2024-03-08] VITALS: Ht 152.4 cm; Wt 162.4 kg
[2024-03-08 16:19] LABS: HEMATOCRIT 28.3 % (36.0-47.0); HEMOGLOBIN 10.2 g/dl (12.0-15.5); MEAN CORPUSCULAR HEMOGLOBIN 37.4 pg (27.0-33.0); MEAN CORPUSCULAR VOLUME 103.7 fl (80.0-96.0); PLATELET COUNT, AUTOMATED 758 10^3/uL (150-450); RED BLOOD COUNT 2.73 10^6/uL (4.00-5.40)
[2024-03-08 16:38] LABS: BLOOD UREA NITROGEN 30 MG/DL (9-23); CALCIUM LEVEL 9.4 MG/DL (8.3-10.6); CARBON DIOXIDE LEVEL 23 MMOL/L (20-31); CHLORIDE LEVEL 102 MMOL/L (98-107); CREATININE FOR GFR 0.94 MG/DL (0.55-1.30); GLOMERULAR FILTRATION RATE > 60.0 (>39); GLUCOSE, FASTING 208 MG/DL (74-106); POTASSIUM SERUM 3.9 MMOL/L (3.5-5.1); SODIUM LEVEL 135 MMOL/L (136-145)
[2024-03-08 16:42] LABS: THYROID STIMULATING HORMONE 13.746 uIU/ML (0.55-4.78)
[2024-03-08 16:43] LABS: FREE T4 1.33 NG/DL (0.89-1.76)
[2024-03-08 17:08] LABS: BASOPHILS 16 % (0-1); EOSINOPHILS 9 % (0-3); LYMPHOCYTES 13 % (16-44); METAMYELOCYTES 5 % (0-0); MONOCYTES 5 % (0-5); MYELOCYTES 20 % (0-0); NEUTROPHILS 30 % (28-66); PLATELET ESTIMATE INCREASED (NORMAL)
[2024-03-08 17:09] LABS: POLYCHROMASIA 1+
[2024-03-08 17:11] LABS: TEAR DROP CELLS 1+
[2024-03-08] MEDS: FUROSEMIDE 40MG/4ML VIAL IV ONE (19:34)
[2024-03-08] MEDS: ceFAZolin SOD 1 GM in D5W MINI-BAG PLUS 50 ML IV ONE (19:34)
[2024-03-08] MEDS ORDERED: HYDR500C3 PO (20:51)
[2024-03-08] MEDS ORDERED: HOME MED LIST COMPLETE! XX SCH (20:55)
[2024-03-08] MEDS: INSULIN LISPRO (NovoLOG) PER UNIT SC SCH (21:00)
[2024-03-08] MEDS ORDERED: FLUTICASONE PROP 0.05% NASAL SPRAY 16 GM (FLONASE) NARES PRN (23:05)
[2024-03-08] MEDS ORDERED: ACETAMINOPHEN 500 MG TAB PO PRN (23:05)
[2024-03-08] MEDS ORDERED: NITROGLYCERIN 0.4MG SUBL TABLET SL PRN (23:05)
[2024-03-08] MEDS ORDERED: MAALOX 30 ML SUSP *UDC PO PRN (23:15)
[2024-03-08] MEDS ORDERED: GLUCOSE 4 GM CHEW PO PRN (23:15)
[2024-03-08] MEDS ORDERED: GLUCAGON INJ 1MG VIAL SC PRN (23:15)
[2024-03-08] MEDS ORDERED: DEXTROSE 50% 50ML SYRINGE IV PRN (23:15)
[2024-03-09] MEDS: FUROSEMIDE 40MG/4ML VIAL IV SCH (00:53)
[2024-03-09] MEDS: POTASSIUM CHLORIDE 10MEQ SR TABLET PO SCH (00:53)
[2024-03-09] MEDS: PERCOCET 5MG/325MG TAB PO PRN (02:49)
[2024-03-09] MEDS: LEVOTHYROXINE 88MCG TABLET (0.088 MG) PO SCH (06:30)
[2024-03-09] MEDS: INSULIN LISPRO (NovoLOG) PER UNIT SC SCH (07:30)
[2024-03-09] MEDS ORDERED: POTASSIUM CHLORIDE 10MEQ SR TABLET PO SCH (09:00)
[2024-03-09] MEDS: APIXABAN 2.5 MG TAB (ELIQUIS) PO SCH (10:28)
[2024-03-09] MEDS: DOCUSATE SODIUM 100MG CAPSULE PO SCH (10:29)
[2024-03-09] MEDS: SPIRONOLACTONE 25 MG TAB PO SCH (10:29)
[2024-03-09] MEDS: DOXYCYCLINE HYCLATE 100MG TABLET PO SCH (10:33)
[2024-03-09 12:06] LABS: HEMATOCRIT 28.4 % (36.0-47.0); HEMOGLOBIN 10.3 g/dl (12.0-15.5); MEAN CORPUSCULAR HEMOGLOBIN 37.6 pg (27.0-33.0); MEAN CORPUSCULAR HGB CONC 36.3 g/dl (32.0-36.5); MEAN CORPUSCULAR VOLUME 103.6 fl (80.0-96.0); RED BLOOD COUNT 2.74 10^6/uL (4.00-5.40)
[2024-03-09] MEDS: HYDROXYUREA 500 MG CAP PO SCH (12:14)
[2024-03-09 12:26] LABS: PLATELET COUNT, AUTOMATED 801 10^3/uL (150-450); WHITE BLOOD COUNT 207.1 10^3/uL (4.0-10.0)
[2024-03-09 12:42] LABS: ALBUMIN 3.7 G/DL (3.2-5.2); ALKALINE PHOSPHATASE 104 U/L (46-116); ALT/SGPT 12 U/L (7.0-40); AST/SGOT 20 U/L (<34); BILIRUBIN,TOTAL 0.5 MG/DL (0.3-1.2); BLOOD UREA NITROGEN 25 MG/DL (9-23); CALCIUM LEVEL 9.8 MG/DL (8.3-10.6); CARBON DIOXIDE LEVEL 28 MMOL/L (20-31); CHLORIDE LEVEL 100 MMOL/L (98-107); CREATININE FOR GFR 0.94 MG/DL (0.55-1.30); GLOMERULAR FILTRATION RATE > 60.0 (>39); GLUCOSE, FASTING 232 MG/DL (74-106); POTASSIUM SERUM 3.6 MMOL/L (3.5-5.1); SODIUM LEVEL 136 MMOL/L (136-145); TOTAL PROTEIN 6.6 G/DL (5.7-8.2)
[2024-03-09 12:44] LABS: PROCALCITONIN 0.39 ng/ml
[2024-03-09 15:13] VITALS: BP 117/60; TEMP 97.3; O2SAT 99
[2024-03-09 16:59] VITALS: O2SAT 99
[2024-03-09 20:11] VITALS: BP 119/60; TEMP 97.5; O2SAT 97
[2024-03-09] MEDS: LEVEMIR (INSULIN DETEMIR) 1 UNITS/0.01ML SC SCH (21:00)
[2024-03-09] MEDS: GABAPENTIN 100 MG CAP PO SCH (22:58)
[2024-03-10] MEDS ORDERED: SPIRONOLACTONE 25 MG TAB As Ordered ONE (09:20)
[2024-03-10] MEDS ORDERED: POTASSIUM CHLORIDE 10MEQ SR TABLET As Ordered ONE (09:20)
[2024-03-10] MEDS ORDERED: DOCUSATE SODIUM 100MG CAPSULE As Ordered ONE (09:20)
[2024-03-10] MEDS ORDERED: APIXABAN 2.5 MG TAB (ELIQUIS) As Ordered ONE (09:21)
[2024-03-10] MEDS ORDERED: DOXYCYCLINE HYCLATE 100MG TABLET As Ordered ONE (09:21)
[2024-03-10 12:00] VITALS: BP 120/61; TEMP 98.3; O2SAT 98
[2024-03-10 13:08] LABS: ALBUMIN 3.4 G/DL (3.2-5.2); BILIRUBIN,TOTAL 0.5 MG/DL (0.3-1.2); CALCIUM LEVEL 9.9 MG/DL (8.3-10.6); CREATININE FOR GFR 1.03 MG/DL (0.55-1.30); GLOMERULAR FILTRATION RATE 56.2 (>39); PHOSPHORUS LEVEL 5.2 MG/DL (2.4-5.1); POTASSIUM SERUM 4.1 MMOL/L (3.5-5.1); TOTAL PROTEIN 6.1 G/DL (5.7-8.2)
[2024-03-10 16:30] LABS: BASO % 12.8 % (0.0-1.0); EOS # 11.1 10^3/uL (0.0-0.5); EOS % 5.9 % (0.0-3.0); HEMATOCRIT 29.3 % (36.0-47.0); HEMOGLOBIN 10.3 g/dl (12.0-15.5); LYMPH # 9.9 10^3/uL (1.5-5.0); LYMPH % 5.3 % (24.0-44.0); MEAN CORPUSCULAR HEMOGLOBIN 36.5 pg (27.0-33.0); MEAN CORPUSCULAR HGB CONC 35.2 g/dl (32.0-36.5); MEAN CORPUSCULAR VOLUME 103.9 fl (80.0-96.0); MONO % 3.6 % (2.0-8.0); NEUTROPHILS # 79.6 10^3/uL (1.5-8.5); NEUTROPHILS % 42.5 % (36.0-66.0); PLATELET COUNT, AUTOMATED 789 10^3/uL (150-450); RED BLOOD COUNT 2.82 10^6/uL (4.00-5.40)
[2024-03-10 16:31] LABS: MONO # 6.7 10^3/uL (0.0-0.8); WHITE BLOOD COUNT 187.1 10^3/uL (4.0-10.0)
[2024-03-10 20:00] VITALS: BP 118/62; TEMP 97.6; O2SAT 98
[2024-03-11] MEDS: FUROSEMIDE 100MG/10ML VIAL IV SCH (01:09)
[2024-03-11 04:02] VITALS: BP 118/62; TEMP 97.3; O2SAT 95
[2024-03-11 08:25] LABS: BASO # 26.3 10^3/uL (0.0-0.2); BASO % 13.2 % (0.0-1.0); EOS # 12.3 10^3/uL (0.0-0.5); EOS % 6.2 % (0.0-3.0); HEMOGLOBIN 10.8 g/dl (12.0-15.5); LYMPH # 10.9 10^3/uL (1.5-5.0); LYMPH % 5.5 % (24.0-44.0); MEAN CORPUSCULAR HEMOGLOBIN 36.7 pg (27.0-33.0); MONO % 4.2 % (2.0-8.0); PLATELET COUNT, AUTOMATED 823 10^3/uL (150-450); RED BLOOD COUNT 2.94 10^6/uL (4.00-5.40)
[2024-03-11 08:41] LABS: MONO # 8.4 10^3/uL (0.0-0.8)
[2024-03-11] MEDS: ACETAMINOPHEN 500 MG TAB PO SCH (08:43)
[2024-03-11] MEDS: GLIMEPIRIDE 2 MG TAB PO SCH (08:44)
[2024-03-11] MEDS: FUROSEMIDE 40MG/4ML VIAL IV SCH (08:44)
[2024-03-11] MEDS: KETOROLAC 30 MG/ML 1ML VIAL IV ONE (08:44)
[2024-03-11 08:46] LABS: WHITE BLOOD COUNT 199.6 10^3/uL (4.0-10.0)
[2024-03-11 08:48] LABS: CALCIUM LEVEL 9.9 MG/DL (8.3-10.6); CREATININE FOR GFR 1.06 MG/DL (0.55-1.30); GLOMERULAR FILTRATION RATE 54.4 (>39); POTASSIUM SERUM 4.7 MMOL/L (3.5-5.1)
[2024-03-11] MEDS ORDERED: ARTIFICIAL TEARS DROPS 15ML BTL (VISINE DRY RELIEF) OU PRN (11:00)
[2024-03-11 12:00] VITALS: BP 105/63; TEMP 97.5; O2SAT 99
[2024-03-11 20:18] VITALS: BP 113/66; TEMP 97.5; O2SAT 100
[2024-03-11] MEDS: methocarbamoL 500 MG TAB PO SCH (21:58)
[2024-03-11] MEDS: NAPROXEN 250 MG TAB PO SCH (21:59)
[2024-03-12 03:33] VITALS: BP 113/61; TEMP 97.9; O2SAT 98
[2024-03-12] MEDS: FUROSEMIDE 20 MG TAB PO SCH (08:26)
[2024-03-12] MEDS: POTASSIUM CHLORIDE 10MEQ SR TABLET PO SCH (08:32)
[2024-03-12 09:23] LABS: BASO % 11.3 % (0.0-1.0); EOS # 12.6 10^3/uL (0.0-0.5); EOS % 6.5 % (0.0-3.0); HEMATOCRIT 29.2 % (36.0-47.0); HEMOGLOBIN 10.2 g/dl (12.0-15.5); LYMPH % 7.7 % (24.0-44.0); MEAN CORPUSCULAR HEMOGLOBIN 36.7 pg (27.0-33.0); MEAN CORPUSCULAR HGB CONC 34.9 g/dl (32.0-36.5); MONO % 3.4 % (2.0-8.0); NEUTROPHILS % 41.9 % (36.0-66.0); PLATELET COUNT, AUTOMATED 737 10^3/uL (150-450); RED BLOOD COUNT 2.78 10^6/uL (4.00-5.40)
[2024-03-12 09:29] LABS: MONO # 6.6 10^3/uL (0.0-0.8); WHITE BLOOD COUNT 193.7 10^3/uL (4.0-10.0)
[2024-03-12 09:42] LABS: CALCIUM LEVEL 9.7 MG/DL (8.3-10.6); CREATININE FOR GFR 1.4 MG/DL (0.55-1.30); GLOMERULAR FILTRATION RATE 39.5 (>39); POTASSIUM SERUM 5.9 MMOL/L (3.5-5.1)
[2024-03-12] MEDS ORDERED: CEFTAROLINE FOSAMIL 600 MG in D5W MINI-BAG PLUS 50 ML IV SCH (10:25)
[2024-03-12] MEDS: CEFTAROLINE FOSAMIL 400 MG in D5W MINI-BAG PLUS 50 ML IV SCH (11:28)
[2024-03-12 12:10] VITALS: BP 116/61; TEMP 97.3; O2SAT 100
[2024-03-12 20:06] VITALS: BP 139/62; TEMP 97.3; O2SAT 99
[2024-03-13 04:23] VITALS: BP 138/63; TEMP 97.3; O2SAT 100
[2024-03-13] MEDS: MOM 30ML SUSPENSION UDC PO PRN (06:25)
[2024-03-13 06:41] LABS: BASO # 22.1 10^3/uL (0.0-0.2); BASO % 11.8 % (0.0-1.0); EOS # 12.5 10^3/uL (0.0-0.5); EOS % 6.7 % (0.0-3.0); HEMATOCRIT 27.4 % (36.0-47.0); HEMOGLOBIN 9.7 g/dl (12.0-15.5); LYMPH # 14.9 10^3/uL (1.5-5.0); LYMPH % 7.9 % (24.0-44.0); MEAN CORPUSCULAR HEMOGLOBIN 36.5 pg (27.0-33.0); MEAN CORPUSCULAR HGB CONC 35.4 g/dl (32.0-36.5); MONO % 4.1 % (2.0-8.0); NEUTROPHILS # 75.6 10^3/uL (1.5-8.5); NEUTROPHILS % 40.5 % (36.0-66.0); PLATELET COUNT, AUTOMATED 661 10^3/uL (150-450); RED BLOOD COUNT 2.66 10^6/uL (4.00-5.40)
[2024-03-13 06:42] LABS: MONO # 7.8 10^3/uL (0.0-0.8)
[2024-03-13 07:14] LABS: CALCIUM LEVEL 9.2 MG/DL (8.3-10.6); CREATININE FOR GFR 1.67 MG/DL (0.55-1.30); GLOMERULAR FILTRATION RATE 32.2 (>39); POTASSIUM SERUM 5.3 MMOL/L (3.5-5.1)
[2024-03-13] MEDS ORDERED: FUROSEMIDE 40 MG TAB PO SCH (09:00)
[2024-03-13 12:00] VITALS: BP 133/68; TEMP 97.5; O2SAT 100
[2024-03-13 14:25] VITALS: BP 132/67
[2024-03-13 20:24] VITALS: BP 111/51; TEMP 97.5; O2SAT 98
[2024-03-13] MEDS: CEFTAROLINE FOSAMIL 300 MG in D5W 50 ML IV SCH (23:51)
[2024-03-14] MEDS: PROMETHAZINE 25 MG TAB PO PRN (02:46)
[2024-03-14 02:53] LABS: HEMOGLOBIN 9.4 g/dl (12.0-15.5); MEAN CORPUSCULAR HEMOGLOBIN 37.3 pg (27.0-33.0); MEAN CORPUSCULAR HGB CONC 36.2 g/dl (32.0-36.5); MEAN CORPUSCULAR VOLUME 103.2 fl (80.0-96.0); PLATELET COUNT, AUTOMATED 668 10^3/uL (150-450); RED BLOOD COUNT 2.52 10^6/uL (4.00-5.40)
[2024-03-14 03:03] LABS: WHITE BLOOD COUNT 188.3 10^3/uL (4.0-10.0)
[2024-03-14 03:19] LABS: ALBUMIN 3.2 G/DL (3.2-5.2); BILIRUBIN,DIRECT 0.1 MG/DL (<0.4); BILIRUBIN,TOTAL 0.4 MG/DL (0.3-1.2); CALCIUM LEVEL 9.2 MG/DL (8.3-10.6); CREATININE FOR GFR 1.43 MG/DL (0.55-1.30); GLOMERULAR FILTRATION RATE 38.5 (>39); MAGNESIUM LEVEL 2.6 MG/DL (1.8-2.4); TOTAL PROTEIN 5.6 G/DL (5.7-8.2)
[2024-03-14 03:25] LABS: BASO # 10.6 10^3/uL (0.0-0.2); EOS # 7.8 10^3/uL (0.0-0.5); MONO # 4.1 10^3/uL (0.0-0.8)
[2024-03-14 03:26] LABS: BASOPHILS 20 % (0-1); EOSINOPHILS 15 % (0-3); LYMPHOCYTES 15 % (16-44); MONOCYTES 8 % (0-5); NEUTROPHILS 81 % (28-66)
[2024-03-14 03:27] LABS: PLATELET ESTIMATE INCREASED (NORMAL)
[2024-03-14 03:28] LABS: BASO % 10.6 % (0.0-1.0); EOS % 7.8 % (0.0-3.0); MONO % 4.1 % (2.0-8.0)
[2024-03-14] MEDS ORDERED: CALCIUM CARBONATE 500 MG CHEW U/D PO PRN (03:50)
[2024-03-14] MEDS ORDERED: MIRALAX *UNIT DOSE* 17GM PACKET PO PRN (03:50)
[2024-03-14 03:59] VITALS: BP 120/62; TEMP 97.5; O2SAT 98
[2024-03-14] MEDS ORDERED: PROMETHAZINE 25MG/ML 1ML VIAL IV PRN (09:25)
[2024-03-14] MEDS ORDERED: ONDANSETRON 4MG 2ML VIAL IV PRN (10:45)
[2024-03-14] MEDS: CEPHALEXIN 500 MG CAP PO SCH (11:31)
[2024-03-14 11:51] VITALS: BP 116/71; TEMP 97.5; O2SAT 94
[2024-03-14 20:22] VITALS: BP 119/61; TEMP 97.3; O2SAT 100
[2024-03-15 04:10] VITALS: BP 119/62; TEMP 97.9; O2SAT 99
[2024-03-15 06:28] LABS: CALCIUM LEVEL 9.4 MG/DL (8.3-10.6); CREATININE FOR GFR 1.29 MG/DL (0.55-1.30); GLOMERULAR FILTRATION RATE 43.4 (>39); POTASSIUM SERUM 4.9 MMOL/L (3.5-5.1)
[2024-03-15] MEDS: METOPROLOL SUCC *XL* 25MG TAB (TopROL *XL*) PO SCH (09:00)
[2024-03-15 09:02] VITALS: BP 114/53
[2024-03-15] MEDS: SPIRONOLACTONE 25 MG TAB PO SCH (09:03)
[2024-03-15] MEDS: ASPIRIN 81MG CHEW TABLET PO SCH (09:03)
[2024-03-15] MEDS: TORSEMIDE 20 MG TAB PO SCH (09:07)
[2024-03-15] MEDS ORDERED: ASPI81CH8 PO (09:55)
[2024-03-15] MEDS ORDERED: GLIM4TAB5 PO (09:55)
[2024-03-15] MEDS ORDERED: CEFD1CAP9 PO (09:55)
[2024-03-15] MEDS ORDERED: METO1TAB32 PO (09:55)
[2024-03-15 10:43] VITALS: BP 130/58
[2024-03-15 12:10] VITALS: BP 126/57; TEMP 97.5; O2SAT 99
== END 2024-03-15 16:09 | disposition home health service (06) | DRG 602 ==
LOC: EDBD 15:20 → M ED 15:20 → M ED INP 03-09 11:56 → M MSPAV 03-09 15:13
PROVIDERS: ADMIT Internal Medicine Nephrology; ATTEND Student in an Organized Health Care Education/Training Program
PROC: B246ZZZ Ultrasonography of Right and Left Heart (ICD-10-PCS; principal; 2024-03-14)
DX: L03.116 Cellulitis of left lower limb (principal); I50.23 Acute on chronic systolic (congestive) heart failure; C92.10 Chronic myeloid leukemia, BCR/ABL-positive, not having achieved remission; I47.19 Other supraventricular tachycardia; N17.9 Acute kidney failure, unspecified; I27.81 Cor pulmonale (chronic); I48.91 Unspecified atrial fibrillation; I25.10 Atherosclerotic heart disease of native coronary artery without angina pectoris; I25.2 Old myocardial infarction; I11.0 Hypertensive heart disease with heart failure; E87.6 Hypokalemia; G47.33 Obstructive sleep apnea (adult) (pediatric); Q96.3 Mosaicism, 45, X/46, XX or XY; E66.9 Obesity, unspecified; E03.9 Hypothyroidism, unspecified; M15.9 Polyosteoarthritis, unspecified; M81.0 Age-related osteoporosis without current pathological fracture; M35.3 Polymyalgia rheumatica; Z66 Do not resuscitate; M25.511 Pain in right shoulder; R60.0 Localized edema; E11.42 Type 2 diabetes mellitus with diabetic polyneuropathy; E78.00 Pure hypercholesterolemia, unspecified; G89.29 Other chronic pain; I87.2 Venous insufficiency (chronic) (peripheral); M71.21 Synovial cyst of popliteal space [Baker], right knee; R94.31 Abnormal electrocardiogram [ECG] [EKG]; F32.A Depression, unspecified; Z95.5 Presence of coronary angioplasty implant and graft; Z95.0 Presence of cardiac pacemaker; Z88.1 Allergy status to other antibiotic agents; Z88.2 Allergy status to sulfonamides; Z88.8 Allergy status to other drugs, medicaments and biological substances; Z79.01 Long term (current) use of anticoagulants; Z79.890 Hormone replacement therapy; Z79.4 Long term (current) use of insulin; Z79.899 Other long term (current) drug therapy; Z96.661 Presence of right artificial ankle joint; E87.5 Hyperkalemia

== ENCOUNTER → 2024-03-22 | Outpatient (CLI) | payer MEDICARE, MEDICAID ==
[~2024-03-22] VITALS: Ht 152.4 cm; Wt 74.4 kg
[~2024-03-22] MED LIST changes: +ASPI81CH8 PO; +LASI20TA3 PO; +METO1TAB32 PO; +POTA10CA70 PO
[2024-03-22 08:45] VITALS: BP 140/64; O2SAT 100
== END ==
LOC: M PAL 08:13
PROVIDERS: ATTEND Nurse Practitioner Adult Health
DX: Z51.5 Encounter for palliative care (principal); G89.3 Neoplasm related pain (acute) (chronic); G89.29 Other chronic pain; R60.9 Edema, unspecified; C92.10 Chronic myeloid leukemia, BCR/ABL-positive, not having achieved remission; R53.81 Other malaise; M25.552 Pain in left hip; M79.605 Pain in left leg; Z79.01 Long term (current) use of anticoagulants; Z79.4 Long term (current) use of insulin; Z79.51 Long term (current) use of inhaled steroids; Z79.82 Long term (current) use of aspirin; Z79.84 Long term (current) use of oral hypoglycemic drugs; Z79.891 Long term (current) use of opiate analgesic; Z79.899 Other long term (current) drug therapy; Z86.79 Personal history of other diseases of the circulatory system; Z88.1 Allergy status to other antibiotic agents; Z88.2 Allergy status to sulfonamides; Z88.8 Allergy status to other drugs, medicaments and biological substances; Z66 Do not resuscitate

== ENCOUNTER 2024-04-16 13:37 | Emergency (ER) | payer MEDICARE, MEDICAID ==
[~2024-04-16] VITALS: Ht 152.4 cm; Wt 75.5 kg
[~2024-04-16 13:37] MED LIST changes: -LASI20TA3 PO; -POTA10CA70 PO
[2024-04-16 13:39] VITALS: TEMP 97.8
[2024-04-16 15:47] LABS: BASO # 26.6 10^3/uL (0.0-0.2); BASO % 9.3 % (0.0-1.0); EOS # 9.9 10^3/uL (0.0-0.5); EOS % 3.5 % (0.0-3.0); HEMATOCRIT 25.8 % (36.0-47.0); HEMOGLOBIN 9.5 g/dl (12.0-15.5); LYMPH # 17.2 10^3/uL (1.5-5.0); MEAN CORPUSCULAR HGB CONC 36.8 g/dl (32.0-36.5); MEAN CORPUSCULAR VOLUME 103.2 fl (80.0-96.0); NEUTROPHILS # 129.6 10^3/uL (1.5-8.5); NEUTROPHILS % 45.5 % (36.0-66.0)
[2024-04-16 16:03] LABS: MONO # 11.4 10^3/uL (0.0-0.8); PLATELET COUNT, AUTOMATED 1100 10^3/uL (150-450)
[2024-04-16 16:13] LABS: CK-MB VALUE MASS < 1.0 NG/ML (<3.6)
[2024-04-16 16:15] LABS: CPK CREATINE PHOSPHOKINASE 31 U/L (34-145); MB/CK RELATIVE INDEX 3.22 (< OR =4)
[2024-04-16 16:17] LABS: THYROID STIMULATING HORMONE 7.604 uIU/ML (0.55-4.78); THYROXINE (T4) 10.3 UG/DL (4.5-10.9)
[2024-04-16] MEDS: FUROSEMIDE 40MG/4ML VIAL IV ONE (16:18)
[2024-04-16 16:19] LABS: INR 1.31; PROTHROMBIN TIME 15.8 SECONDS (12.5-14.5)
[2024-04-16] MEDS: MORPHINE 2 MG/ML 1ML VIAL IV ONE (16:19)
[2024-04-16 16:23] LABS: ALBUMIN 3.5 G/DL (3.2-5.2); ALKALINE PHOSPHATASE 110 U/L (46-116); ALT/SGPT < 9 U/L (7.0-40); AST/SGOT 22 U/L (<34); BILIRUBIN,DIRECT 0.2 MG/DL (<0.4); BILIRUBIN,TOTAL 0.5 MG/DL (0.3-1.2); BLOOD UREA NITROGEN 36 MG/DL (9-23); CALCIUM LEVEL 9.4 MG/DL (8.3-10.6); CARBON DIOXIDE LEVEL 23 MMOL/L (20-31); CHLORIDE LEVEL 101 MMOL/L (98-107); CREATININE FOR GFR 1.27 MG/DL (0.55-1.30); GLOMERULAR FILTRATION RATE 44.2 (>39); GLUCOSE, FASTING 189 MG/DL (74-106); SODIUM LEVEL 132 MMOL/L (136-145); TOTAL PROTEIN 6.8 G/DL (5.7-8.2)
[2024-04-16] MEDS ORDERED: LASI20TA3 PO (17:46)
[2024-04-16 18:54] VITALS: BP 141/65; O2SAT 99
== END 2024-04-16 19:00 | disposition home or self-care (01) ==
LOC: M ED 13:37
DX: I89.0 Lymphedema, not elsewhere classified (principal); G89.4 Chronic pain syndrome; C92.10 Chronic myeloid leukemia, BCR/ABL-positive, not having achieved remission; I10 Essential (primary) hypertension; G47.33 Obstructive sleep apnea (adult) (pediatric); M54.50 Low back pain, unspecified; I25.2 Old myocardial infarction; Z86.79 Personal history of other diseases of the circulatory system; Z95.0 Presence of cardiac pacemaker; Z88.1 Allergy status to other antibiotic agents; Z88.2 Allergy status to sulfonamides; Z88.8 Allergy status to other drugs, medicaments and biological substances; Z79.899 Other long term (current) drug therapy; Z79.01 Long term (current) use of anticoagulants
CPT/HCPCS: 71045; 80048; 80076; 81001; 82550; 82553; 83605; 83880; 84436; 84443; 84484; 85025; 85610; 87040; 93005; 93041; 94760; 96374; 96375; 99285; J1940

== ENCOUNTER 2024-04-18 10:48 | Observation (INO) | payer MEDICARE, MEDICAID ==
[~2024-04-18] VITALS: Ht 152.4 cm; Wt 73.8 kg
[~2024-04-18 10:48] MED LIST changes: +LASI20TA3 PO
[2024-04-18] MEDS: fentaNYL 100 MCG/2 ML INJECTION IV ONE (14:10)
[2024-04-18] MEDS: FUROSEMIDE 40MG/4ML VIAL IV ONE (14:10)
[2024-04-18 14:52] LABS: BASO # 28.6 10^3/uL (0.0-0.2); BASO % 9.6 % (0.0-1.0); EOS # 10.2 10^3/uL (0.0-0.5); EOS % 3.4 % (0.0-3.0); HEMATOCRIT 26.4 % (36.0-47.0); HEMOGLOBIN 9.9 g/dl (12.0-15.5); LYMPH # 16.2 10^3/uL (1.5-5.0); LYMPH % 5.5 % (24.0-44.0); MEAN CORPUSCULAR HEMOGLOBIN 38.1 pg (27.0-33.0); MONO % 4.2 % (2.0-8.0); NEUTROPHILS # 132.1 10^3/uL (1.5-8.5); NEUTROPHILS % 44.6 % (36.0-66.0)
[2024-04-18 14:55] LABS: MONO # 12.6 10^3/uL (0.0-0.8); PLATELET COUNT, AUTOMATED 1175 10^3/uL (150-450)
[2024-04-18 15:00] LABS: WHITE BLOOD COUNT 296.8 10^3/uL (4.0-10.0)
[2024-04-18 15:02] LABS: MEAN CORPUSCULAR HGB CONC 37.5 g/dl (32.0-36.5); MEAN CORPUSCULAR VOLUME 101.5 fl (80.0-96.0)
[2024-04-18 15:14] LABS: ALBUMIN 3.8 G/DL (3.2-5.2); BILIRUBIN,DIRECT 0.3 MG/DL (<0.4); BILIRUBIN,TOTAL 0.7 MG/DL (0.3-1.2); CALCIUM LEVEL 9.5 MG/DL (8.3-10.6); CREATININE FOR GFR 1.27 MG/DL (0.55-1.30); GLOMERULAR FILTRATION RATE 44.2 (>39); POTASSIUM SERUM 3.8 MMOL/L (3.5-5.1)
[2024-04-18] MEDS ORDERED: DEXTROSE 50% 50ML SYRINGE IV PRN (18:30)
[2024-04-18] MEDS ORDERED: MOM 30ML SUSPENSION UDC PO PRN (18:30)
[2024-04-18] MEDS ORDERED: MORPHINE 2 MG/ML 1ML VIAL IV PRN (18:30)
[2024-04-18] MEDS ORDERED: GLUCAGON INJ 1MG VIAL SC PRN (18:30)
[2024-04-18] MEDS ORDERED: MAALOX 30 ML SUSP *UDC PO PRN (18:30)
[2024-04-18] MEDS ORDERED: oxyCODONE 5MG TAB PO PRN (18:30)
[2024-04-18] MEDS ORDERED: GLUCOSE 4 GM CHEW PO PRN (18:30)
[2024-04-18] MEDS ORDERED: POTA10CA70 PO (19:11)
[2024-04-18] MEDS ORDERED: HOME MED LIST COMPLETE! XX SCH (19:15)
[2024-04-18] MEDS ORDERED: MORPHINE 4 MG/ML 1ML VIAL As Ordered ONE (19:28)
[2024-04-18] MEDS: MORPHINE 2 MG/ML 1ML VIAL IV PRN (19:31)
[2024-04-18] MEDS ORDERED: FLUTICASONE PROP 0.05% NASAL SPRAY 16 GM (FLONASE) NARES PRN (20:25)
[2024-04-18] MEDS ORDERED: MECLIZINE 12.5 MG TAB PO PRN (20:25)
[2024-04-18] MEDS ORDERED: NITROGLYCERIN 0.4MG SUBL TABLET SL PRN (20:25)
[2024-04-18] MEDS: INSULIN LISPRO (NovoLOG) PER UNIT SC SCH ×2 (21:00→21:07)
[2024-04-18] MEDS: GABAPENTIN 100 MG CAP PO SCH (21:00)
[2024-04-18] MEDS: DOCUSATE SODIUM 100MG CAPSULE PO SCH (21:05)
[2024-04-18] MEDS: POTASSIUM CHLORIDE 10MEQ SR TABLET PO SCH (21:06)
[2024-04-18] MEDS: APIXABAN 2.5 MG TAB (ELIQUIS) PO SCH (21:06)
[2024-04-18] MEDS: oxyCODONE 5MG TAB PO PRN (21:24)
[2024-04-18] MEDS: LEVEMIR (INSULIN DETEMIR) 1 UNITS/0.01ML SC SCH (21:25)
[2024-04-18 23:10] VITALS: BP 136/60; TEMP 97.7; O2SAT 98
[2024-04-19 04:19] VITALS: BP 102/46; TEMP 98.4; O2SAT 95
[2024-04-19] MEDS: LEVOTHYROXINE 88MCG TABLET (0.088 MG) PO SCH (05:42)
[2024-04-19] MEDS: MYCOLOG CREAM 15GM (NYSTATIN/TRIAMCINOLONE) EXT PRN (05:42)
[2024-04-19 06:01] LABS: HEMATOCRIT 25.4 % (36.0-47.0); HEMOGLOBIN 9.3 g/dl (12.0-15.5); MEAN CORPUSCULAR HEMOGLOBIN 37.2 pg (27.0-33.0); MEAN CORPUSCULAR VOLUME 101.6 fl (80.0-96.0)
[2024-04-19 06:33] LABS: CREATININE FOR GFR 1.09 MG/DL (0.55-1.30); GLOMERULAR FILTRATION RATE 52.7 (>39); POTASSIUM SERUM 3.9 MMOL/L (3.5-5.1)
[2024-04-19 06:58] LABS: PLATELET COUNT, AUTOMATED 1145 10^3/uL (150-450); WHITE BLOOD COUNT 271.3 10^3/uL (4.0-10.0)
[2024-04-19 06:59] LABS: MEAN CORPUSCULAR HGB CONC 36.6 g/dl (32.0-36.5)
[2024-04-19 07:08] LABS: BASOPHILS 12 % (0-1); EOSINOPHILS 14 % (0-3); LYMPHOCYTES 5 % (16-44); METAMYELOCYTES 1 % (0-0); MYELOCYTES 2 % (0-0); NEUTROPHILS 31 % (28-66); PROMYELOCYTES 18 % (0-0)
[2024-04-19 07:09] LABS: HYPOCHROMASIA 3+; PLATELET ESTIMATE INCREASED (NORMAL)
[2024-04-19 07:11] LABS: ANISOCYTOSIS 1+; POLYCHROMASIA 1+
[2024-04-19] MEDS: FUROSEMIDE 20 MG TAB PO SCH (08:29)
[2024-04-19 08:30] VITALS: BP 119/61
[2024-04-19] MEDS: HYDROXYUREA 500 MG CAP PO SCH (08:30)
[2024-04-19] MEDS: SPIRONOLACTONE 25 MG TAB PO SCH (08:30)
[2024-04-19 12:00] VITALS: BP 115/59; TEMP 98.8; O2SAT 98
[2024-04-19] MEDS ORDERED: oxyCODONE 5MG TAB PO PRN (12:15)
[2024-04-19 20:09] VITALS: BP 116/57; TEMP 98.1; O2SAT 97
[2024-04-19] MEDS: LEVEMIR (INSULIN DETEMIR) 1 UNITS/0.01ML SC SCH (20:29)
[2024-04-20 04:18] VITALS: BP 113/54; TEMP 97.9; O2SAT 97
[2024-04-20 06:02] LABS: BASO # 21.2 10^3/uL (0.0-0.2); BASO % 9.5 % (0.0-1.0); EOS # 7.6 10^3/uL (0.0-0.5); EOS % 3.4 % (0.0-3.0); HEMATOCRIT 24.2 % (36.0-47.0); HEMOGLOBIN 8.6 g/dl (12.0-15.5); LYMPH % 5.8 % (24.0-44.0); MEAN CORPUSCULAR HEMOGLOBIN 36.6 pg (27.0-33.0); MEAN CORPUSCULAR HGB CONC 35.5 g/dl (32.0-36.5); MONO % 3.6 % (2.0-8.0); NEUTROPHILS # 95.7 10^3/uL (1.5-8.5); NEUTROPHILS % 42.8 % (36.0-66.0); RED BLOOD COUNT 2.35 10^6/uL (4.00-5.40)
[2024-04-20 06:14] LABS: MONO # 8.1 10^3/uL (0.0-0.8); PLATELET COUNT, AUTOMATED 1077 10^3/uL (150-450); WHITE BLOOD COUNT 223.9 10^3/uL (4.0-10.0)
[2024-04-20 06:22] LABS: CALCIUM LEVEL 8.9 MG/DL (8.3-10.6); CREATININE FOR GFR 1.13 MG/DL (0.55-1.30); GLOMERULAR FILTRATION RATE 50.5 (>39); MAGNESIUM LEVEL 2.1 MG/DL (1.8-2.4); POTASSIUM SERUM 5.3 MMOL/L (3.5-5.1)
[2024-04-20] MEDS: HYDROXYUREA 500 MG CAP PO SCH (08:28)
[2024-04-20] MEDS: FUROSEMIDE 20 MG TAB PO SCH (08:30)
[2024-04-20] MEDS ORDERED: FURO40TA2 PO (11:08)
[2024-04-20] MEDS ORDERED: OXYC-517 PO (11:08)
[2024-04-20] MEDS ORDERED: INSULANT SC (11:16)
[2024-04-20 12:00] VITALS: BP 120/57; TEMP 97.9; O2SAT 100
[2024-04-20] MEDS: ACETAMINOPHEN TAB 650MG DOSE (2X325MG) PO PRN (14:06)
[2024-04-20 14:52] LABS: CREATININE FOR GFR 1.17 MG/DL (0.55-1.30); GLOMERULAR FILTRATION RATE 48.5 (>39); POTASSIUM SERUM 4.7 MMOL/L (3.5-5.1)
[2024-04-27] MEDS ORDERED: IMAT100T PO (10:47)
== END 2024-04-20 16:05 | disposition home health service (06) ==
LOC: M ED 10:48 → EDBD 10:48 → M ED INP 10:49 → M MS5PR 23:05
PROVIDERS: ADMIT Internal Medicine; ATTEND Internal Medicine
DX: M79.604 Pain in right leg (principal); M79.605 Pain in left leg; R26.2 Difficulty in walking, not elsewhere classified; R60.0 Localized edema; E87.5 Hyperkalemia; C93.10 Chronic myelomonocytic leukemia not having achieved remission; G89.3 Neoplasm related pain (acute) (chronic); I50.30 Unspecified diastolic (congestive) heart failure; D72.829 Elevated white blood cell count, unspecified; D75.839 Thrombocytosis, unspecified; D64.9 Anemia, unspecified; Q96.3 Mosaicism, 45, X/46, XX or XY; I11.0 Hypertensive heart disease with heart failure; I48.0 Paroxysmal atrial fibrillation; I49.5 Sick sinus syndrome; Z95.0 Presence of cardiac pacemaker; I25.10 Atherosclerotic heart disease of native coronary artery without angina pectoris; Z95.5 Presence of coronary angioplasty implant and graft; I25.2 Old myocardial infarction; Z86.73 Personal history of transient ischemic attack (TIA), and cerebral infarction without residual deficits; G47.33 Obstructive sleep apnea (adult) (pediatric); E11.649 Type 2 diabetes mellitus with hypoglycemia without coma; E03.9 Hypothyroidism, unspecified; F32.A Depression, unspecified; M81.0 Age-related osteoporosis without current pathological fracture; M06.9 Rheumatoid arthritis, unspecified; F41.9 Anxiety disorder, unspecified; E78.5 Hyperlipidemia, unspecified; Z98.890 Other specified postprocedural states; Z90.722 Acquired absence of ovaries, bilateral; Z88.2 Allergy status to sulfonamides; Z88.1 Allergy status to other antibiotic agents; Z88.8 Allergy status to other drugs, medicaments and biological substances; Z79.899 Other long term (current) drug therapy; Z79.01 Long term (current) use of anticoagulants; Z79.4 Long term (current) use of insulin; Z79.890 Hormone replacement therapy; Z51.5 Encounter for palliative care; Z66 Do not resuscitate
CPT/HCPCS: 36415; 71045; 80048; 80076; 80503; 83735; 83880; 85025; 93005; 93970; 96374; 96375; 97116; 97161; 97530; 99285; G0378; J1815; J1940; J3010

== ENCOUNTER → 2024-05-03 | Outpatient (REF) | payer MEDICARE, MEDICAID ==
[~2024-05-03] MED LIST changes: +POTA10CA70 PO
[2024-05-03 18:25] LABS: ALBUMIN 3.4 G/DL (3.2-5.2); BILIRUBIN,TOTAL 0.4 MG/DL (0.3-1.2); CALCIUM LEVEL 9.5 MG/DL (8.3-10.6); CREATININE FOR GFR 1.06 MG/DL (0.55-1.30); GLOMERULAR FILTRATION RATE 54.4 (>39); MAGNESIUM LEVEL 2.1 MG/DL (1.8-2.4); POTASSIUM SERUM 4.4 MMOL/L (3.5-5.1); TOTAL PROTEIN 6.6 G/DL (5.7-8.2)
== END ==
LOC: M SFHCCLAY 10:47
PROVIDERS: ATTEND Nurse Practitioner Family
DX: C92.10 Chronic myeloid leukemia, BCR/ABL-positive, not having achieved remission (principal)

== ENCOUNTER → 2024-05-11 | Outpatient (REF) | payer MEDICARE, MEDICAID ==
[2024-05-11 15:14] LABS: ALBUMIN 3.5 G/DL (3.2-5.2); CALCIUM LEVEL 9.6 MG/DL (8.3-10.6); CREATININE FOR GFR 1.45 MG/DL (0.55-1.30); GLOMERULAR FILTRATION RATE 37.9 (>39); MAGNESIUM LEVEL 2.1 MG/DL (1.8-2.4); PHOSPHORUS LEVEL 5.3 MG/DL (2.4-5.1); POTASSIUM SERUM 4.4 MMOL/L (3.5-5.1)
== END ==
LOC: M LAB REF 14:20
PROVIDERS: ATTEND Internal Medicine Cardiovascular Disease
DX: I50.22 Chronic systolic (congestive) heart failure (principal)

== ENCOUNTER → 2024-05-25 | Outpatient (REF) | payer MEDICARE, MEDICAID ==
[2024-05-25 18:12] LABS: ALBUMIN 3.2 G/DL (3.2-5.2); CREATININE FOR GFR 1.18 MG/DL (0.55-1.30); GLOMERULAR FILTRATION RATE 48.1 (>39); PHOSPHORUS LEVEL 4.2 MG/DL (2.4-5.1); POTASSIUM SERUM 4.4 MMOL/L (3.5-5.1)
== END ==
LOC: M LAB REF 16:31
PROVIDERS: ATTEND Internal Medicine Cardiovascular Disease
DX: I50.22 Chronic systolic (congestive) heart failure (principal)

== ENCOUNTER 2024-05-27 13:14 | Inpatient (IN) | payer MEDICARE, MEDICAID ==
[~2024-05-27] VITALS: Ht 152.4 cm; Wt 77.6 kg
[2024-05-27 14:21] LABS: HEMATOCRIT 25.7 % (36.0-47.0); HEMOGLOBIN 9.5 g/dl (12.0-15.5); MEAN CORPUSCULAR HEMOGLOBIN 36.3 pg (27.0-33.0); MEAN CORPUSCULAR VOLUME 98.1 fl (80.0-96.0); RED BLOOD COUNT 2.62 10^6/uL (4.00-5.40)
[2024-05-27 14:36] LABS: PLATELET COUNT, AUTOMATED 1012 10^3/uL (150-450)
[2024-05-27 14:49] LABS: C REACTIVE PROTEIN QUANTITATIV 4.2 MG/DL (<1.0)
[2024-05-27 14:50] LABS: CALCIUM LEVEL 8.9 MG/DL (8.3-10.6); CREATININE FOR GFR 1.57 MG/DL (0.55-1.30); ERYTHROCYTE SEDIMENTATION RATE 14 mm/hr (0-30); GLOMERULAR FILTRATION RATE 34.6 (>39); POTASSIUM SERUM 3.9 MMOL/L (3.5-5.1)
[2024-05-27 14:51] LABS: WHITE BLOOD COUNT 316.9 10^3/uL (4.0-10.0)
[2024-05-27 14:54] LABS: BASOPHILS 3 % (0-1); BLAST CELLS 2 % (0-0); EOSINOPHILS 7 % (0-3); LYMPHOCYTES 1 % (16-44); METAMYELOCYTES 13 % (0-0); MYELOCYTES 5 % (0-0); NEUTROPHILS 58 % (28-66); PROMYELOCYTES 4 % (0-0)
[2024-05-27 14:56] LABS: PLATELET ESTIMATE INCREASED (NORMAL)
[2024-05-27 14:57] LABS: SMUDGE CELLS 1+
[2024-05-27] MEDS: ACETAMINOPHEN *IV* 1,000 MG in IV 1 EA IV ONE (16:31)
[2024-05-27] MEDS ORDERED: GLUCOSE 4 GM CHEW PO PRN (20:15)
[2024-05-27] MEDS ORDERED: GLUCAGON INJ 1MG VIAL SC PRN (20:15)
[2024-05-27] MEDS ORDERED: DEXTROSE 50% 50ML SYRINGE IV PRN (20:15)
[2024-05-27] MEDS: FUROSEMIDE 40MG/4ML VIAL IV ONE (20:59)
[2024-05-27] MEDS: INSULIN LISPRO (NovoLOG) PER UNIT SC SCH (21:00)
[2024-05-27] MEDS: hydrOXYzine 50 MG TAB PO ONE (21:36)
[2024-05-27] MEDS ORDERED: TORS20TA2 PO (21:39)
[2024-05-27] MEDS ORDERED: METO25TA PO (21:39)
[2024-05-27] MEDS ORDERED: POTA-136 PO (21:39)
[2024-05-27] MEDS ORDERED: MED REC IN PROGRESS XX SCH (22:05)
[2024-05-27 22:35] VITALS: BP 132/67; TEMP 98.1; O2SAT 96
[2024-05-27] MEDS ORDERED: OXYC-517 PO (23:15)
[2024-05-27] MEDS ORDERED: HOME MED LIST COMPLETE! XX SCH (23:20)
[2024-05-27] MEDS: DOCUSATE SODIUM 100MG CAPSULE PO SCH (23:42)
[2024-05-27] MEDS: oxyCODONE 5MG TAB PO ONE (23:43)
[2024-05-27] MEDS ORDERED: oxyCODONE 5MG TAB PO PRN (23:50)
[2024-05-28] MEDS: POTASSIUM CHLORIDE 10MEQ SR TABLET PO SCH ×2 (00:25→12:00)
[2024-05-28] MEDS: APIXABAN 2.5 MG TAB (ELIQUIS) PO SCH (00:26)
[2024-05-28 01:04] LABS: SODIUM,RANDOM URINE 88 MMOL/L
[2024-05-28 01:47] LABS: OSMOLALITY URINE 290 MOSM/KG (50-1400)
[2024-05-28 03:23] LABS: ALBUMIN 3.6 G/DL (3.2-5.2); BILIRUBIN,DIRECT 0.3 MG/DL (<0.4); BILIRUBIN,TOTAL 0.6 MG/DL (0.3-1.2); TOTAL PROTEIN 6.8 G/DL (5.7-8.2)
[2024-05-28 04:00] VITALS: BP 131/67; TEMP 98.4; O2SAT 96
[2024-05-28] MEDS: LEVOTHYROXINE 88MCG TABLET (0.088 MG) PO SCH (05:50)
[2024-05-28 06:25] LABS: HEMOGLOBIN 8.7 g/dl (12.0-15.5); MEAN CORPUSCULAR HEMOGLOBIN 35.5 pg (27.0-33.0); MEAN CORPUSCULAR HGB CONC 36.3 g/dl (32.0-36.5); RED BLOOD COUNT 2.45 10^6/uL (4.00-5.40)
[2024-05-28 06:32] LABS: WHITE BLOOD COUNT 245.5 10^3/uL (4.0-10.0)
[2024-05-28 06:33] LABS: PLATELET COUNT, AUTOMATED 815 10^3/uL (150-450)
[2024-05-28 06:45] LABS: CREATININE FOR GFR 1.28 MG/DL (0.55-1.30); GLOMERULAR FILTRATION RATE 43.8 (>39); MAGNESIUM LEVEL 2.1 MG/DL (1.8-2.4); POTASSIUM SERUM 3.3 MMOL/L (3.5-5.1)
[2024-05-28] MEDS: HYDROXYUREA 500 MG CAP PO SCH (08:41)
[2024-05-28] MEDS: FUROSEMIDE 40MG/4ML VIAL IV SCH (08:42)
[2024-05-28] MEDS: INSULIN LISPRO (NovoLOG) PER UNIT SC SCH (08:42)
[2024-05-28] MEDS: UNRESOLVED PATIENT OWN MED ORDER XX SCH (09:00)
[2024-05-28] MEDS: oxyCODONE 5MG TAB PO PRN (11:12)
[2024-05-28 12:00] VITALS: BP 124/62; TEMP 98.1; O2SAT 97
[2024-05-28] MEDS: GABAPENTIN 100 MG CAP PO PRN (15:44)
[2024-05-28 20:41] VITALS: BP 144/66; TEMP 98.1; O2SAT 99
[2024-05-28] MEDS ORDERED: oxyCODONE 5MG TAB PO PRN (21:00)
[2024-05-29 03:46] VITALS: BP 106/53; TEMP 98.2; O2SAT 96
[2024-05-29 06:25] LABS: HEMATOCRIT 25.6 % (36.0-47.0); HEMOGLOBIN 9.2 g/dl (12.0-15.5); MEAN CORPUSCULAR HEMOGLOBIN 35.5 pg (27.0-33.0); MEAN CORPUSCULAR HGB CONC 35.9 g/dl (32.0-36.5); MEAN CORPUSCULAR VOLUME 98.8 fl (80.0-96.0); PLATELET COUNT, AUTOMATED 791 10^3/uL (150-450); RED BLOOD COUNT 2.59 10^6/uL (4.00-5.40)
[2024-05-29 06:57] LABS: CREATININE FOR GFR 1.09 MG/DL (0.55-1.30); GLOMERULAR FILTRATION RATE 52.7 (>39); MAGNESIUM LEVEL 2.2 MG/DL (1.8-2.4); POTASSIUM SERUM 4.5 MMOL/L (3.5-5.1)
[2024-05-29 07:01] LABS: WHITE BLOOD COUNT 278.7 10^3/uL (4.0-10.0)
[2024-05-29 09:00] VITALS: BP 109/52; TEMP 97.6; O2SAT 96
[2024-05-29] MEDS: HYDROXYUREA 500 MG CAP PO SCH (09:44)
[2024-05-29 12:00] VITALS: BP_SYST 110; BP_SYST 129; BP_DIAS 60; BP_DIAS 78; TEMP 97.9; O2SAT 100; O2SAT 99
[2024-05-29] MEDS: ACETAMINOPHEN 325 MG TAB PO PRN (12:45)
[2024-05-29 20:33] VITALS: BP 115/58; TEMP 98.1; O2SAT 98
[2024-05-30 04:49] VITALS: BP 135/67; TEMP 97.3; O2SAT 99
[2024-05-30 06:05] LABS: HEMATOCRIT 24.5 % (36.0-47.0); HEMOGLOBIN 8.8 g/dl (12.0-15.5); MEAN CORPUSCULAR HEMOGLOBIN 35.5 pg (27.0-33.0); MEAN CORPUSCULAR HGB CONC 35.9 g/dl (32.0-36.5); MEAN CORPUSCULAR VOLUME 98.8 fl (80.0-96.0); PLATELET COUNT, AUTOMATED 840 10^3/uL (150-450); RED BLOOD COUNT 2.48 10^6/uL (4.00-5.40)
[2024-05-30 06:22] LABS: WHITE BLOOD COUNT 258.5 10^3/uL (4.0-10.0)
[2024-05-30 06:31] LABS: CREATININE FOR GFR 1.07 MG/DL (0.55-1.30); GLOMERULAR FILTRATION RATE 53.8 (>39); MAGNESIUM LEVEL 2.1 MG/DL (1.8-2.4); POTASSIUM SERUM 4.6 MMOL/L (3.5-5.1)
[2024-05-30] MEDS ORDERED: HYDROXYUREA 500 MG CAP PO SCH ×2 (09:00)
[2024-05-30 12:00] VITALS: BP 116/56; TEMP 98.1; O2SAT 100
[2024-05-30] MEDS: oxyCODONE 5MG TAB PO PRN (12:49)
[2024-05-30 13:07] LABS: URIC ACID 14.5 MG/DL (3.1-7.8)
[2024-05-30 13:46] LABS: HEMATOCRIT 27.1 % (36.0-47.0); HEMOGLOBIN 9.9 g/dl (12.0-15.5); MEAN CORPUSCULAR HEMOGLOBIN 36.5 pg (27.0-33.0); MEAN CORPUSCULAR HGB CONC 36.5 g/dl (32.0-36.5); PLATELET COUNT, AUTOMATED 818 10^3/uL (150-450); RED BLOOD COUNT 2.71 10^6/uL (4.00-5.40)
[2024-05-30 13:55] LABS: WHITE BLOOD COUNT 307.8 10^3/uL (4.0-10.0)
[2024-05-30] MEDS: allopurinoL 100 MG TAB PO SCH (14:47)
[2024-05-30] MEDS: HYDROXYUREA 500 MG CAP PO ONE (14:48)
[2024-05-30] MEDS: allopurinoL 100 MG TAB PO ONE (16:20)
[2024-05-30 20:36] VITALS: BP_SYST 141; BP_DIAS 5; BP_DIAS 65; TEMP 97.9; O2SAT 100
[2024-05-31 03:54] VITALS: BP 138/64; TEMP 98.1; O2SAT 96
[2024-05-31 06:24] LABS: HEMATOCRIT 25.2 % (36.0-47.0); MEAN CORPUSCULAR HEMOGLOBIN 35.6 pg (27.0-33.0); MEAN CORPUSCULAR HGB CONC 35.7 g/dl (32.0-36.5); MEAN CORPUSCULAR VOLUME 99.6 fl (80.0-96.0); PLATELET COUNT, AUTOMATED 779 10^3/uL (150-450); RED BLOOD COUNT 2.53 10^6/uL (4.00-5.40)
[2024-05-31 06:30] LABS: WHITE BLOOD COUNT 259.4 10^3/uL (4.0-10.0)
[2024-05-31 06:47] LABS: URIC ACID 12.3 MG/DL (3.1-7.8)
[2024-05-31 06:50] LABS: CALCIUM LEVEL 9.1 MG/DL (8.3-10.6); CREATININE FOR GFR 1.06 MG/DL (0.55-1.30); GLOMERULAR FILTRATION RATE 54.4 (>39)
[2024-05-31] MEDS: HYDROXYUREA 500 MG CAP PO SCH (08:20)
[2024-05-31 12:00] VITALS: BP 132/61; TEMP 97.7; O2SAT 91
[2024-05-31 19:36] VITALS: BP 129/60; TEMP 98.1; O2SAT 100
[2024-06-01 04:00] VITALS: BP 128/60; TEMP 97.9; O2SAT 96
[2024-06-01 05:49] LABS: HEMATOCRIT 25.9 % (36.0-47.0); HEMOGLOBIN 9.3 g/dl (12.0-15.5); MEAN CORPUSCULAR HEMOGLOBIN 35.6 pg (27.0-33.0); MEAN CORPUSCULAR HGB CONC 35.9 g/dl (32.0-36.5); MEAN CORPUSCULAR VOLUME 99.2 fl (80.0-96.0); PLATELET COUNT, AUTOMATED 788 10^3/uL (150-450); RED BLOOD COUNT 2.61 10^6/uL (4.00-5.40)
[2024-06-01 06:14] LABS: URIC ACID 10.6 MG/DL (3.1-7.8)
[2024-06-01 06:17] LABS: CALCIUM LEVEL 9.1 MG/DL (8.3-10.6); CREATININE FOR GFR 1.04 MG/DL (0.55-1.30); GLOMERULAR FILTRATION RATE 55.6 (>39); MAGNESIUM LEVEL 2.1 MG/DL (1.8-2.4)
[2024-06-01 12:00] VITALS: BP 130/64; TEMP 97.9; O2SAT 100
[2024-06-01 14:50] VITALS: BP 110/60
[2024-06-01 20:00] VITALS: BP 140/64; TEMP 97.9; O2SAT 96
[2024-06-02 04:00] VITALS: BP 138/65; TEMP 97.9; O2SAT 98
[2024-06-02 05:53] LABS: HEMATOCRIT 24.5 % (36.0-47.0); MEAN CORPUSCULAR HEMOGLOBIN 35.9 pg (27.0-33.0); MEAN CORPUSCULAR HGB CONC 36.7 g/dl (32.0-36.5); MEAN CORPUSCULAR VOLUME 97.6 fl (80.0-96.0); PLATELET COUNT, AUTOMATED 757 10^3/uL (150-450); RED BLOOD COUNT 2.51 10^6/uL (4.00-5.40)
[2024-06-02 06:04] LABS: WHITE BLOOD COUNT 235.7 10^3/uL (4.0-10.0)
[2024-06-02 06:18] LABS: URIC ACID 9.2 MG/DL (3.1-7.8)
[2024-06-02 06:21] LABS: BLOOD UREA NITROGEN 47 MG/DL (9-23); CALCIUM LEVEL 8.8 MG/DL (8.3-10.6); CARBON DIOXIDE LEVEL 25 MMOL/L (20-31); CHLORIDE LEVEL 101 MMOL/L (98-107); CREATININE FOR GFR 0.95 MG/DL (0.55-1.30); GLOMERULAR FILTRATION RATE > 60.0 (>39); GLUCOSE, FASTING 212 MG/DL (74-106); MAGNESIUM LEVEL 2.1 MG/DL (1.8-2.4); POTASSIUM SERUM 5.2 MMOL/L (3.5-5.1); SODIUM LEVEL 133 MMOL/L (136-145)
[2024-06-02 06:37] LABS: LDH LACTATE DEHYDROGENASE 1064 U/L (120-246)
[2024-06-02] MEDS: FUROSEMIDE 20 MG TAB PO SCH (09:50)
[2024-06-02 12:00] VITALS: BP 135/61; TEMP 97.9; O2SAT 99
[2024-06-02 15:35] LABS: CALCIUM LEVEL 9.2 MG/DL (8.3-10.6); CREATININE FOR GFR 1.05 MG/DL (0.55-1.30); POTASSIUM SERUM 4.6 MMOL/L (3.5-5.1)
[2024-06-02 20:00] VITALS: BP 133/60; TEMP 97.9; O2SAT 97
[2024-06-03 04:00] VITALS: BP 106/51; TEMP 97.9; O2SAT 93
[2024-06-03 06:11] LABS: HEMATOCRIT 24.9 % (36.0-47.0); HEMOGLOBIN 8.8 g/dl (12.0-15.5); MEAN CORPUSCULAR HEMOGLOBIN 34.6 pg (27.0-33.0); MEAN CORPUSCULAR HGB CONC 35.3 g/dl (32.0-36.5); PLATELET COUNT, AUTOMATED 773 10^3/uL (150-450); RED BLOOD COUNT 2.54 10^6/uL (4.00-5.40)
[2024-06-03 06:24] LABS: WHITE BLOOD COUNT 216.9 10^3/uL (4.0-10.0)
[2024-06-03 06:27] LABS: URIC ACID 8.5 MG/DL (3.1-7.8)
[2024-06-03 06:30] LABS: BLOOD UREA NITROGEN 47 MG/DL (9-23); CALCIUM LEVEL 8.8 MG/DL (8.3-10.6); CARBON DIOXIDE LEVEL 26 MMOL/L (20-31); CHLORIDE LEVEL 103 MMOL/L (98-107); CREATININE FOR GFR 0.88 MG/DL (0.55-1.30); GLOMERULAR FILTRATION RATE > 60.0 (>39); GLUCOSE, FASTING 156 MG/DL (74-106); MAGNESIUM LEVEL 2.2 MG/DL (1.8-2.4); POTASSIUM SERUM 4.5 MMOL/L (3.5-5.1); SODIUM LEVEL 135 MMOL/L (136-145)
[2024-06-03 06:42] LABS: LDH LACTATE DEHYDROGENASE 881 U/L (120-246)
[2024-06-03 12:00] VITALS: BP 123/61; TEMP 98.1; O2SAT 97
[2024-06-03 20:00] VITALS: BP 122/60; TEMP 97.9; O2SAT 98
[2024-06-04 04:00] VITALS: BP 120/60; TEMP 97.9; O2SAT 96
[2024-06-04 06:36] LABS: HEMATOCRIT 24.2 % (36.0-47.0); HEMOGLOBIN 8.4 g/dl (12.0-15.5); MEAN CORPUSCULAR HEMOGLOBIN 34.1 pg (27.0-33.0); MEAN CORPUSCULAR HGB CONC 34.7 g/dl (32.0-36.5); MEAN CORPUSCULAR VOLUME 98.4 fl (80.0-96.0); RED BLOOD COUNT 2.46 10^6/uL (4.00-5.40)
[2024-06-04 06:49] LABS: URIC ACID 8.1 MG/DL (3.1-7.8)
[2024-06-04 06:51] LABS: PLATELET COUNT, AUTOMATED 686 10^3/uL (150-450); WHITE BLOOD COUNT 190.4 10^3/uL (4.0-10.0)
[2024-06-04 06:52] LABS: BLOOD UREA NITROGEN 48 MG/DL (9-23); CALCIUM LEVEL 8.6 MG/DL (8.3-10.6); CARBON DIOXIDE LEVEL 24 MMOL/L (20-31); CHLORIDE LEVEL 103 MMOL/L (98-107); CREATININE FOR GFR 0.85 MG/DL (0.55-1.30); GLOMERULAR FILTRATION RATE > 60.0 (>39); GLUCOSE, FASTING 138 MG/DL (74-106); MAGNESIUM LEVEL 2.2 MG/DL (1.8-2.4); POTASSIUM SERUM 4.5 MMOL/L (3.5-5.1); SODIUM LEVEL 134 MMOL/L (136-145)
[2024-06-04 07:14] LABS: LDH LACTATE DEHYDROGENASE 801 U/L (120-246)
[2024-06-04] MEDS: FUROSEMIDE 20MG/2ML VIAL IV ONE (16:40)
[2024-06-04 20:00] VITALS: BP 123/51; TEMP 97.9; O2SAT 97
[2024-06-05 04:00] VITALS: BP 124/60; TEMP 97.7; O2SAT 96
[2024-06-05 05:44] LABS: URIC ACID 7.7 MG/DL (3.1-7.8)
[2024-06-05 08:46] VITALS: BP 123/61
[2024-06-05 12:00] VITALS: BP 125/60; TEMP 97.7; O2SAT 100
[2024-06-06 04:00] VITALS: BP 125/61; TEMP 97.9; O2SAT 98
[2024-06-06 06:32] LABS: URIC ACID 7.3 MG/DL (3.1-7.8)
[2024-06-07 04:20] VITALS: BP 124/59; TEMP 97.9; O2SAT 99
[2024-06-07 06:45] LABS: URIC ACID 6.8 MG/DL (3.1-7.8)
[2024-06-07] MEDS: MOM 30ML SUSPENSION UDC PO PRN (08:03)
[2024-06-07 12:00] VITALS: BP 123/57; TEMP 97.7; O2SAT 99
[2024-06-08 05:00] VITALS: BP 125/59; TEMP 97.9; O2SAT 96
[2024-06-08 05:52] LABS: URIC ACID 6.2 MG/DL (3.1-7.8)
[2024-06-08 09:20] VITALS: BP 120/60
[2024-06-08 14:01] LABS: HEMATOCRIT 28.6 % (36.0-47.0); HEMOGLOBIN 9.9 g/dl (12.0-15.5); MEAN CORPUSCULAR HEMOGLOBIN 34.4 pg (27.0-33.0); MEAN CORPUSCULAR HGB CONC 34.6 g/dl (32.0-36.5); MEAN CORPUSCULAR VOLUME 99.3 fl (80.0-96.0); RED BLOOD COUNT 2.88 10^6/uL (4.00-5.40)
[2024-06-08 14:06] LABS: PLATELET COUNT, AUTOMATED 1201 10^3/uL (150-450); WHITE BLOOD COUNT 140.4 10^3/uL (4.0-10.0)
[2024-06-08 14:34] LABS: C REACTIVE PROTEIN QUANTITATIV 1.5 MG/DL (<1.0)
[2024-06-08 14:42] LABS: PROCALCITONIN 0.28 ng/ml
[2024-06-08] MEDS ORDERED: HYDR500C3 PO (14:43)
[2024-06-08] MEDS ORDERED: FURO20TA2 PO (14:43)
[2024-06-08] MEDS ORDERED: ALLO10TA PO (14:43)
[2024-06-08 15:32] LABS: BASOPHILS 22 % (0-1); EOSINOPHILS 13 % (0-3); LYMPHOCYTES 5 % (16-44); METAMYELOCYTES 3 % (0-0); MONOCYTES 3 % (0-5); MYELOCYTES 4 % (0-0); NEUTROPHILS 42 % (28-66)
[2024-06-08 15:33] LABS: ANISOCYTOSIS 1+; HYPOCHROMASIA 1+; PLATELET CLUMPS SMALL AMT; PLATELET ESTIMATE INCREASED (NORMAL)
[2024-06-08 15:34] LABS: MICROCYTOSIS 1+
[2024-06-08 15:35] LABS: GIANT PLATELETS 1+
[2024-06-08 15:36] LABS: POLYCHROMASIA 1+; SCHISTOCYTES 1+
[2024-06-08 15:41] LABS: ERYTHROCYTE SEDIMENTATION RATE 23 mm/hr (0-30)
[2024-06-09 03:42] VITALS: BP 124/62; TEMP 97.7; O2SAT 99
[2024-06-09 05:59] LABS: URIC ACID 5.9 MG/DL (3.1-7.8)
== END 2024-06-09 11:08 | disposition home health service (06) | DRG 607 ==
LOC: M ED 13:14 → M ED INP 20:14 → M MSPAV 22:34
PROVIDERS: ADMIT Student in an Organized Health Care Education/Training Program; ATTEND General Practice
PROC: B246ZZZ Ultrasonography of Right and Left Heart (ICD-10-PCS; principal; 2024-05-28)
DX: I89.0 Lymphedema, not elsewhere classified (principal); I50.32 Chronic diastolic (congestive) heart failure; C92.90 Myeloid leukemia, unspecified, not having achieved remission; I13.0 Hypertensive heart and chronic kidney disease with heart failure and stage 1 through stage 4 chronic kidney disease, or unspecified chronic kidney disease; E87.1 Hypo-osmolality and hyponatremia; I47.10 Supraventricular tachycardia, unspecified; I25.10 Atherosclerotic heart disease of native coronary artery without angina pectoris; G47.33 Obstructive sleep apnea (adult) (pediatric); I49.5 Sick sinus syndrome; E78.5 Hyperlipidemia, unspecified; E03.9 Hypothyroidism, unspecified; F32.A Depression, unspecified; I25.2 Old myocardial infarction; M06.9 Rheumatoid arthritis, unspecified; Z66 Do not resuscitate; Q96.9 Turner's syndrome, unspecified; M16.11 Unilateral primary osteoarthritis, right hip; N18.30 Chronic kidney disease, stage 3 unspecified; I27.81 Cor pulmonale (chronic); E66.9 Obesity, unspecified; M35.3 Polymyalgia rheumatica; E11.42 Type 2 diabetes mellitus with diabetic polyneuropathy; E11.22 Type 2 diabetes mellitus with diabetic chronic kidney disease; D64.9 Anemia, unspecified; R60.0 Localized edema; R29.6 Repeated falls; E79.0 Hyperuricemia without signs of inflammatory arthritis and tophaceous disease; I48.91 Unspecified atrial fibrillation; Z79.01 Long term (current) use of anticoagulants; Z79.890 Hormone replacement therapy; Z79.84 Long term (current) use of oral hypoglycemic drugs; Z79.899 Other long term (current) drug therapy; Z88.1 Allergy status to other antibiotic agents; Z88.2 Allergy status to sulfonamides; Z88.8 Allergy status to other drugs, medicaments and biological substances; Z86.73 Personal history of transient ischemic attack (TIA), and cerebral infarction without residual deficits; Z95.0 Presence of cardiac pacemaker; Z95.5 Presence of coronary angioplasty implant and graft; Z68.33 Body mass index [BMI] 33.0-33.9, adult

== ENCOUNTER → 2024-06-15 | Outpatient (REF) | payer MEDICARE, MEDICAID ==
[~2024-06-15] MED LIST changes: +CEFD300CAP PO; +FLUC150T9 PO; +METO25TA PO; +SENN-52 PO
[2024-06-15 18:36] LABS: HEMATOCRIT 24.1 % (36.0-47.0); MEAN CORPUSCULAR HEMOGLOBIN 32.8 pg (27.0-33.0); MEAN CORPUSCULAR HGB CONC 33.2 g/dl (32.0-36.5); MEAN CORPUSCULAR VOLUME 98.8 fl (80.0-96.0); RED BLOOD COUNT 2.44 10^6/uL (4.00-5.40); WHITE BLOOD COUNT 29.9 10^3/uL (4.0-10.0)
[2024-06-15 18:43] LABS: PLATELET COUNT, AUTOMATED 1229 10^3/uL (150-450)
[2024-06-15 19:00] LABS: URIC ACID 5.4 MG/DL (3.1-7.8)
[2024-06-15 19:03] LABS: ALBUMIN 2.9 G/DL (3.2-5.2); ALKALINE PHOSPHATASE 209 U/L (46-116); ALT/SGPT 10 U/L (7.0-40); AST/SGOT < 8 U/L (<34); BILIRUBIN,TOTAL 0.5 MG/DL (0.3-1.2); BLOOD UREA NITROGEN 40 MG/DL (9-23); CALCIUM LEVEL 8.4 MG/DL (8.3-10.6); CARBON DIOXIDE LEVEL 23 MMOL/L (20-31); CHLORIDE LEVEL 104 MMOL/L (98-107); CREATININE FOR GFR 0.93 MG/DL (0.55-1.30); GLOMERULAR FILTRATION RATE > 60.0 (>39); GLUCOSE, FASTING 201 MG/DL (74-106); POTASSIUM SERUM 4.5 MMOL/L (3.5-5.1); SODIUM LEVEL 133 MMOL/L (136-145); TOTAL PROTEIN 5.7 G/DL (5.7-8.2)
[2024-06-15 19:12] LABS: BASOPHILS 21 % (0-1); EOSINOPHILS 3 % (0-3); LYMPHOCYTES 6 % (16-44); MONOCYTES 2 % (0-5); NEUTROPHILS 68 % (28-66); PLATELET ESTIMATE INCREASED (NORMAL)
[2024-06-15 19:13] LABS: ANISOCYTOSIS 1+
== END ==
LOC: M SFHCCLAY 14:02
PROVIDERS: ATTEND Nurse Practitioner Family
DX: N18.9 Chronic kidney disease, unspecified (principal); M1A.9XX0 Chronic gout, unspecified, without tophus (tophi); C92.20 Atypical chronic myeloid leukemia, BCR/ABL-negative, not having achieved remission

== ENCOUNTER 2024-06-19 09:46 | Inpatient (IN) | payer MEDICARE, MEDICAID ==
[~2024-06-19] VITALS: Ht 152.4 cm; Wt 75.5 kg
[~2024-06-19 09:46] MED LIST changes: -CEFD300CAP PO; -FLUC150T9 PO; -SENN-52 PO
[2024-06-19] MEDS: MORPHINE 4 MG/ML 1ML VIAL IV ONE (11:12)
[2024-06-19 11:25] LABS: HEMATOCRIT 23.4 % (36.0-47.0); HEMOGLOBIN 7.9 g/dl (12.0-15.5); MEAN CORPUSCULAR HEMOGLOBIN 32.5 pg (27.0-33.0); MEAN CORPUSCULAR HGB CONC 33.8 g/dl (32.0-36.5); MEAN CORPUSCULAR VOLUME 96.3 fl (80.0-96.0); PLATELET COUNT, AUTOMATED 937 10^3/uL (150-450); RED BLOOD COUNT 2.43 10^6/uL (4.00-5.40); WHITE BLOOD COUNT 16.3 10^3/uL (4.0-10.0)
[2024-06-19 11:40] LABS: LIPASE 20 U/L (12-53)
[2024-06-19 11:41] LABS: AMYLASE 20 U/L (30-118); CPK CREATINE PHOSPHOKINASE < 15 U/L (34-145)
[2024-06-19 11:42] LABS: ALBUMIN 2.8 G/DL (3.2-5.2); ALKALINE PHOSPHATASE 236 U/L (35-104); ALT/SGPT 15 U/L (7.0-40); AST/SGOT < 8 U/L (<34); BILIRUBIN,DIRECT 0.3 MG/DL (<0.4); BILIRUBIN,TOTAL 0.7 MG/DL (0.3-1.2); BLOOD UREA NITROGEN 39 MG/DL (9-23); CALCIUM LEVEL 8.6 MG/DL (8.3-10.6); CARBON DIOXIDE LEVEL 23 MMOL/L (20-31); CHLORIDE LEVEL 104 MMOL/L (98-107); CK-MB VALUE MASS < 1.0 NG/ML (<3.6); CREATININE FOR GFR 0.79 MG/DL (0.55-1.30); GLOMERULAR FILTRATION RATE > 60.0 (>39); GLUCOSE, FASTING 156 MG/DL (74-106); POTASSIUM SERUM 3.9 MMOL/L (3.5-5.1); SODIUM LEVEL 135 MMOL/L (136-145); TOTAL PROTEIN 5.9 G/DL (5.7-8.2)
[2024-06-19 12:51] LABS: BASOPHILS 39 % (0-1); EOSINOPHILS 1 % (0-3); LYMPHOCYTES 5 % (16-44); MONOCYTES 2 % (0-5); NEUTROPHILS 53 % (28-66)
[2024-06-19 12:52] LABS: ANISOCYTOSIS 2+; HYPOCHROMASIA 1+; PLATELET ESTIMATE INCREASED (NORMAL)
[2024-06-19] MEDS ORDERED: ISOVUE-370 76% 100ML VIAL As Ordered ONE (12:54)
[2024-06-19 14:12] LABS: CK-MB VALUE MASS < 1.0 NG/ML (<3.6)
[2024-06-19 14:13] LABS: CPK CREATINE PHOSPHOKINASE 15 U/L (34-145); MB/CK RELATIVE INDEX 6.66 (< OR =4)
[2024-06-19] MEDS: cefTRIAXone SOD 1 GM in DEXTROSE 5% (D5W) ADV/MINI-BAG 50 ML IV ONE (14:36)
[2024-06-19] MEDS ORDERED: GLUCAGON INJ 1MG VIAL SC PRN (16:00)
[2024-06-19] MEDS ORDERED: DEXTROSE 50% 50ML SYRINGE IV PRN (16:00)
[2024-06-19] MEDS ORDERED: ACETAMINOPHEN 500 MG TAB PO PRN (16:00)
[2024-06-19] MEDS ORDERED: oxyCODONE 5MG TAB PO PRN (16:00)
[2024-06-19] MEDS ORDERED: GLUCOSE 4 GM CHEW PO PRN (16:00)
[2024-06-19] MEDS ORDERED: **NOTE PATIENT COMMENT** MISC XX SCH (16:00)
[2024-06-19] MEDS ORDERED: DOCUSATE SODIUM 100MG CAPSULE PO PRN (16:25)
[2024-06-19] MEDS ORDERED: HYDR500C3 PO (16:27)
[2024-06-19] MEDS ORDERED: OXYC-517 PO (16:27)
[2024-06-19] MEDS ORDERED: HOME MED LIST COMPLETE! XX SCH (16:30)
[2024-06-19] MEDS: FUROSEMIDE 40MG/4ML VIAL IV ONE (17:06)
[2024-06-19] MEDS: oxyCODONE 5MG TAB PO PRN (17:07)
[2024-06-19] MEDS: INSULIN LISPRO (NovoLOG) PER UNIT SC SCH ×2 (18:17→21:52)
[2024-06-19 22:19] VITALS: BP 130/67; TEMP 97.9; O2SAT 98
[2024-06-19] MEDS: APIXABAN 2.5 MG TAB (ELIQUIS) PO SCH (22:38)
[2024-06-19] MEDS: ceFAZolin SOD 1 GM in DEXTROSE 5% (D5W) ADV/MINI-BAG 50 ML IV SCH (22:39)
[2024-06-19 23:59] VITALS: BP 97/41; TEMP 97.7; O2SAT 99
[2024-06-20 01:47] VITALS: BP 106/49
[2024-06-20 04:00] VITALS: BP 105/49; TEMP 97.7; O2SAT 99
[2024-06-20] MEDS: LEVOTHYROXINE 88MCG TABLET (0.088 MG) PO SCH (06:01)
[2024-06-20] MEDS ORDERED: SENOKOT S TAB PO PRN (07:30)
[2024-06-20] MEDS ORDERED: NALOXONE INJ 0.4MG/1ML VIAL IV PRN (07:30)
[2024-06-20] MEDS ORDERED: MOM 30ML SUSPENSION UDC PO PRN (07:30)
[2024-06-20] MEDS ORDERED: MIRALAX *UNIT DOSE* 17GM PACKET PO PRN (07:30)
[2024-06-20 07:38] LABS: HEMATOCRIT 21.9 % (36.0-47.0); HEMOGLOBIN 7.4 g/dl (12.0-15.5); MEAN CORPUSCULAR HEMOGLOBIN 33.2 pg (27.0-33.0); MEAN CORPUSCULAR HGB CONC 33.8 g/dl (32.0-36.5); MEAN CORPUSCULAR VOLUME 98.2 fl (80.0-96.0); RED BLOOD COUNT 2.23 10^6/uL (4.00-5.40); WHITE BLOOD COUNT 13.6 10^3/uL (4.0-10.0)
[2024-06-20 08:00] VITALS: BP 118/58; TEMP 97.7; O2SAT 99
[2024-06-20 08:05] LABS: BLOOD UREA NITROGEN 35 MG/DL (9-23); CALCIUM LEVEL 8.6 MG/DL (8.3-10.6); CARBON DIOXIDE LEVEL 23 MMOL/L (20-31); CHLORIDE LEVEL 108 MMOL/L (98-107); CREATININE FOR GFR 0.83 MG/DL (0.55-1.30); GLOMERULAR FILTRATION RATE > 60.0 (>39); GLUCOSE, FASTING 97 MG/DL (74-106); POTASSIUM SERUM 4.1 MMOL/L (3.5-5.1); SODIUM LEVEL 136 MMOL/L (136-145)
[2024-06-20] MEDS: oxyCODONE 5MG TAB PO ONE (08:33)
[2024-06-20] MEDS: ACETAMINOPHEN 500 MG TAB PO ONE (08:34)
[2024-06-20] MEDS: HYDROXYUREA 500 MG CAP PO SCH (08:34)
[2024-06-20 08:40] LABS: PLATELET COUNT, AUTOMATED 669 10^3/uL (150-450)
[2024-06-20 12:00] VITALS: BP 116/57; TEMP 97.7; O2SAT 99
[2024-06-20] MEDS: oxyCODONE 5MG TAB PO SCH (12:11)
[2024-06-20] MEDS: ACETAMINOPHEN 500 MG TAB PO SCH (12:12)
[2024-06-20 16:00] VITALS: BP 110/76; TEMP 97.5; O2SAT 99
[2024-06-20 18:35] LABS: HEMATOCRIT 25.8 % (36.0-47.0); HEMOGLOBIN 8.5 g/dl (12.0-15.5)
[2024-06-20 18:54] LABS: IRON (FE) 12 UG/DL (50-170); PERCENT SATURATION 4.3 % (13.2-45.0); TOTAL IRON BINDING CAPACITY 277 UG/DL (250-425)
[2024-06-20 18:58] LABS: FOLATE 13.33 NG/ML (>5.4)
[2024-06-20 18:59] LABS: FERRITIN 149.1 NG/ML (7.3-270.7)
[2024-06-20 19:00] LABS: VITAMIN B12 LEVEL > 2000 PG/ML (211-911)
[2024-06-20 19:50] VITALS: BP 112/58; TEMP 97.3; O2SAT 99
[2024-06-21] VITALS (10 sets, daily range): BP systolic 105–142; BP diastolic 48–82; TEMP 97.5–98.4; O2SAT 98–100
[2024-06-21] MEDS: MORPHINE 4 MG/ML 1ML VIAL IV PRN (05:19)
[2024-06-21 06:21] LABS: HEMATOCRIT 21.8 % (36.0-47.0); HEMOGLOBIN 7.1 g/dl (12.0-15.5); MEAN CORPUSCULAR HEMOGLOBIN 32.3 pg (27.0-33.0); MEAN CORPUSCULAR HGB CONC 32.6 g/dl (32.0-36.5); MEAN CORPUSCULAR VOLUME 99.1 fl (80.0-96.0); PLATELET COUNT, AUTOMATED 592 10^3/uL (150-450); WHITE BLOOD COUNT 11.9 10^3/uL (4.0-10.0)
[2024-06-21 06:35] LABS: BLOOD UREA NITROGEN 39 MG/DL (9-23); CALCIUM LEVEL 8.2 MG/DL (8.3-10.6); CARBON DIOXIDE LEVEL 24 MMOL/L (20-31); CHLORIDE LEVEL 108 MMOL/L (98-107); CREATININE FOR GFR 0.76 MG/DL (0.55-1.30); GLOMERULAR FILTRATION RATE > 60.0 (>39); GLUCOSE, FASTING 150 MG/DL (74-106); SODIUM LEVEL 136 MMOL/L (136-145)
[2024-06-21 08:23] LABS: HEMATOCRIT 22.8 % (36.0-47.0); HEMOGLOBIN 7.2 g/dl (12.0-15.5)
[2024-06-21] MEDS: oxyCODONE 10 MG CR TAB PO ONE (09:06)
[2024-06-21] MEDS ORDERED: FLUC150T9 PO (14:51)
[2024-06-21] MEDS ORDERED: CEFD300CAP PO (14:51)
[2024-06-21] MEDS ORDERED: SENN-52 PO (14:53)
[2024-06-21] MEDS ORDERED: OXYC-517 PO (14:53)
[2024-06-21] MEDS ORDERED: MIRA33506 PO (14:53)
[2024-06-21 20:43] LABS: HEMATOCRIT 22.9 % (36.0-47.0); HEMOGLOBIN 7.7 g/dl (12.0-15.5)
[2024-06-22] VITALS: BP 108/52; TEMP 97.5; O2SAT 98
[2024-06-22 00:01] LABS: HEMATOCRIT 22.6 % (36.0-47.0); HEMOGLOBIN 7.6 g/dl (12.0-15.5)
[2024-06-22 00:19] VITALS: BP 108/52; TEMP 97.5; O2SAT 98
[2024-06-22 00:21] VITALS: BP 108/52; TEMP 97.5; O2SAT 98
[2024-06-22 04:39] VITALS: BP 115/55; TEMP 97.5; O2SAT 98
[2024-06-22 06:36] LABS: HEMATOCRIT 23.2 % (36.0-47.0); HEMOGLOBIN 7.8 g/dl (12.0-15.5); MEAN CORPUSCULAR HEMOGLOBIN 33.2 pg (27.0-33.0); MEAN CORPUSCULAR HGB CONC 33.6 g/dl (32.0-36.5); MEAN CORPUSCULAR VOLUME 98.7 fl (80.0-96.0); RED BLOOD COUNT 2.35 10^6/uL (4.00-5.40); WHITE BLOOD COUNT 11.6 10^3/uL (4.0-10.0)
[2024-06-22 06:37] LABS: PLATELET COUNT, AUTOMATED 390 10^3/uL (150-450)
[2024-06-22 06:55] LABS: BLOOD UREA NITROGEN 38 MG/DL (9-23); CALCIUM LEVEL 8.2 MG/DL (8.3-10.6); CARBON DIOXIDE LEVEL 23 MMOL/L (20-31); CHLORIDE LEVEL 109 MMOL/L (98-107); CREATININE FOR GFR 0.79 MG/DL (0.55-1.30); GLOMERULAR FILTRATION RATE > 60.0 (>39); GLUCOSE, FASTING 142 MG/DL (74-106); SODIUM LEVEL 137 MMOL/L (136-145)
[2024-06-22] MEDS ORDERED: MORPHINE 4 MG/ML 1ML VIAL IV ONE (07:15)
[2024-06-22] MEDS ORDERED: OXYC-517 PO (07:20)
[2024-06-22] MEDS ORDERED: OXYC-141 PO (07:20)
[2024-06-22] MEDS ORDERED: MIDO10TA PO (07:31)
[2024-06-22] MEDS: TORSEMIDE 20 MG TAB PO ONE (07:40)
[2024-06-22] MEDS: oxyCODONE 10 MG CR TAB PO ONE (07:42)
[2024-06-22] MEDS: MIDODRINE 5 MG TAB PO ONE (07:43)
[2024-06-22] MEDS ORDERED: FOSFOMYCIN TROMETHAMINE 3 GM POWDER PACKET (MONUROL) PO ONE (07:50)
[2024-06-22] MEDS: cefTRIAXone SOD 2 GM in DEXTROSE 5% (D5W) ADV/MINI-BAG 50 ML IV ONE (08:06)
[2024-06-22] MEDS: oxyCODONE 5MG TAB PO ONE (10:39)
[2024-06-22] MEDS ORDERED: MIDODRINE 5 MG TAB PO ONE (11:00)
[2024-06-22] MEDS ORDERED: oxyCODONE 5MG TAB PO ONE (12:00)
[2024-06-22] MEDS ORDERED: oxyCODONE 5MG TAB PO PRN (16:00)
[2024-06-22] MEDS ORDERED: oxyCODONE 10 MG CR TAB PO SCH (21:00)
== END 2024-06-22 11:45 | DRG 543 ==
LOC: M ED 09:46 → EDBD 09:46 → M ED INP 15:58 → M MS5PR 22:15
PROVIDERS: ADMIT Family Medicine; ATTEND General Practice
PROC: 30233N1 Transfusion of Nonautologous Red Blood Cells into Peripheral Vein, Percutaneous Approach (ICD-10-PCS; principal; 2024-06-20)
DX: M80.0AXA Age-related osteoporosis with current pathological fracture, other site, initial encounter for fracture (principal); C92.10 Chronic myeloid leukemia, BCR/ABL-positive, not having achieved remission; I50.32 Chronic diastolic (congestive) heart failure; N39.0 Urinary tract infection, site not specified; N13.30 Unspecified hydronephrosis; E11.9 Type 2 diabetes mellitus without complications; I11.0 Hypertensive heart disease with heart failure; I25.10 Atherosclerotic heart disease of native coronary artery without angina pectoris; E03.9 Hypothyroidism, unspecified; E78.00 Pure hypercholesterolemia, unspecified; Q96.8 Other variants of Turner's syndrome; M81.0 Age-related osteoporosis without current pathological fracture; I48.91 Unspecified atrial fibrillation; M10.9 Gout, unspecified; M16.12 Unilateral primary osteoarthritis, left hip; D64.9 Anemia, unspecified; R60.0 Localized edema; I49.5 Sick sinus syndrome; G47.33 Obstructive sleep apnea (adult) (pediatric); B96.1 Klebsiella pneumoniae [K. pneumoniae] as the cause of diseases classified elsewhere; Z66 Do not resuscitate; Z88.1 Allergy status to other antibiotic agents; Z88.2 Allergy status to sulfonamides; Z88.6 Allergy status to analgesic agent; Z88.8 Allergy status to other drugs, medicaments and biological substances; Z95.5 Presence of coronary angioplasty implant and graft; Z95.0 Presence of cardiac pacemaker; Z86.73 Personal history of transient ischemic attack (TIA), and cerebral infarction without residual deficits; Z79.890 Hormone replacement therapy; Z79.84 Long term (current) use of oral hypoglycemic drugs; Z79.01 Long term (current) use of anticoagulants; Z79.891 Long term (current) use of opiate analgesic; Z79.899 Other long term (current) drug therapy; Z86.718 Personal history of other venous thrombosis and embolism

== ENCOUNTER → 2024-08-07 | Outpatient (CLI) | payer MEDICARE, MEDICAID ==
[~2024-08-07] MED LIST changes: +CEFD300CAP PO; +FLUC150T9 PO; +MIDO10TA3 PO; +NYST1POW3 TOP; -NYST1POW9 TOP; +OXYC-141 PO; +SENN-52 PO
== END ==
LOC: M SOG 07:57
PROVIDERS: ATTEND Physician Assistant
DX: M16.11 Unilateral primary osteoarthritis, right hip (principal)

== ENCOUNTER → 2024-08-11 | Outpatient (REF) | payer MEDICARE, MEDICAID, OTHER ==
[2024-08-11 08:39] LABS: BASO # 0.3 10^3/uL (0.0-0.2); BASO % 6.9 % (0.0-1.0); EOS # 0.6 10^3/uL (0.0-0.5); EOS % 12.3 % (0.0-3.0); HEMATOCRIT 32.1 % (36.0-47.0); LYMPH # 0.7 10^3/uL (1.5-5.0); LYMPH % 13.5 % (24.0-44.0); MEAN CORPUSCULAR HEMOGLOBIN 37.3 pg (27.0-33.0); MEAN CORPUSCULAR HGB CONC 34.3 g/dl (32.0-36.5); MEAN CORPUSCULAR VOLUME 108.8 fl (80.0-96.0); MONO # 0.4 10^3/uL (0.0-0.8); MONO % 8.5 % (2.0-8.0); NEUTROPHILS # 2.8 10^3/uL (1.5-8.5); NEUTROPHILS % 58.2 % (36.0-66.0); PLATELET COUNT, AUTOMATED 111 10^3/uL (150-450); RED BLOOD COUNT 2.95 10^6/uL (4.00-5.40); WHITE BLOOD COUNT 4.8 10^3/uL (4.0-10.0)
[2024-08-11 08:49] LABS: HEMOGLOBIN A1c 7.2 % (4.0-6.0)
[2024-08-11 09:08] LABS: THYROID STIMULATING HORMONE 7.569 uIU/ML (0.55-4.78)
[2024-08-11 09:09] LABS: ALBUMIN 3.5 G/DL (3.2-5.2); ALKALINE PHOSPHATASE 191 U/L (35-104); ALT/SGPT 23 U/L (7.0-40); AST/SGOT 12 U/L (<34); BILIRUBIN,TOTAL 0.9 MG/DL (0.3-1.2); BLOOD UREA NITROGEN 50 MG/DL (9-23); CALCIUM LEVEL 9.3 MG/DL (8.3-10.6); CARBON DIOXIDE LEVEL 25 MMOL/L (20-31); CHLORIDE LEVEL 103 MMOL/L (98-107); CREATININE FOR GFR 0.76 MG/DL (0.55-1.30); GLOMERULAR FILTRATION RATE > 60.0 (>39); GLUCOSE, FASTING 217 MG/DL (74-106); POTASSIUM SERUM 4.6 MMOL/L (3.5-5.1); SODIUM LEVEL 138 MMOL/L (136-145); TOTAL 25(OH) VITAMIN D 7.3 NG/ML (20.0-100.0); TOTAL PROTEIN 6.4 G/DL (5.7-8.2)
== END ==
LOC: SKLAB3 07:29
PROVIDERS: ATTEND Internal Medicine
DX: E55.9 Vitamin D deficiency, unspecified (principal); E03.9 Hypothyroidism, unspecified; I10 Essential (primary) hypertension; E11.9 Type 2 diabetes mellitus without complications

== ENCOUNTER → 2024-08-17 | Outpatient (REF) | payer MEDICARE, MEDICAID ==
[2024-08-17 13:55] LABS: ALBUMIN 3.6 G/DL (3.2-5.2); BILIRUBIN,TOTAL 0.6 MG/DL (0.3-1.2); CALCIUM LEVEL 9.3 MG/DL (8.3-10.6); CREATININE FOR GFR 0.98 MG/DL (0.55-1.30); GLOMERULAR FILTRATION RATE 59.6 (>39); POTASSIUM SERUM 4.2 MMOL/L (3.5-5.1); TOTAL PROTEIN 6.7 G/DL (5.7-8.2)
== END ==
LOC: M LABDRAWC 13:01
PROVIDERS: ATTEND Internal Medicine Nephrology
DX: I51.89 Other ill-defined heart diseases (principal); D64.9 Anemia, unspecified

== ENCOUNTER → 2024-08-24 | Outpatient (REF) | payer MEDICARE, MEDICAID ==
[2024-08-24 18:49] LABS: ALBUMIN 3.8 G/DL (3.2-5.2); ALKALINE PHOSPHATASE 183 U/L (35-104); ALT/SGPT 11 U/L (7.0-40); AST/SGOT 10 U/L (<34); BILIRUBIN,TOTAL 0.6 MG/DL (0.3-1.2); BLOOD UREA NITROGEN 35 MG/DL (9-23); CALCIUM LEVEL 9.5 MG/DL (8.3-10.6); CARBON DIOXIDE LEVEL 28 MMOL/L (20-31); CHLORIDE LEVEL 101 MMOL/L (98-107); GLOMERULAR FILTRATION RATE > 60.0 (>39); GLUCOSE, FASTING 103 MG/DL (74-106); POTASSIUM SERUM 4.9 MMOL/L (3.5-5.1); SODIUM LEVEL 136 MMOL/L (136-145); TOTAL PROTEIN 6.9 G/DL (5.7-8.2)
== END ==
LOC: M LABDRAWC 16:37
PROVIDERS: ATTEND Internal Medicine Nephrology
DX: N17.9 Acute kidney failure, unspecified (principal)

== ENCOUNTER → 2024-09-11 | Outpatient (CLI) | payer MEDICARE, MEDICAID, OTHER ==
[~2024-09-11] VITALS: Ht 152.4 cm; Wt 69.0 kg
[~2024-09-11] MED LIST changes: +MORP-69 PO
[2024-09-11 15:45] VITALS: BP 140/79; O2SAT 100
== END ==
LOC: M PAL 15:02
PROVIDERS: ATTEND Family Medicine
DX: Z51.5 Encounter for palliative care (principal); C92.10 Chronic myeloid leukemia, BCR/ABL-positive, not having achieved remission; G89.29 Other chronic pain; Z66 Do not resuscitate; Z79.01 Long term (current) use of anticoagulants; Z79.84 Long term (current) use of oral hypoglycemic drugs; Z79.890 Hormone replacement therapy; Z79.899 Other long term (current) drug therapy; Z88.1 Allergy status to other antibiotic agents; Z88.2 Allergy status to sulfonamides; Z88.8 Allergy status to other drugs, medicaments and biological substances

== ENCOUNTER → 2024-09-13 | Outpatient (REF) | payer MEDICARE, MEDICAID, OTHER ==
[2024-09-13 18:51] LABS: HEMATOCRIT 35.5 % (36.0-47.0); HEMOGLOBIN 11.8 g/dl (12.0-15.5); MEAN CORPUSCULAR HEMOGLOBIN 37.2 pg (27.0-33.0); MEAN CORPUSCULAR HGB CONC 33.2 g/dl (32.0-36.5); PLATELET COUNT, AUTOMATED 601 10^3/uL (150-450); RED BLOOD COUNT 3.17 10^6/uL (4.00-5.40); WHITE BLOOD COUNT 18.6 10^3/uL (4.0-10.0)
[2024-09-13 18:57] LABS: ALBUMIN 3.4 G/DL (3.2-5.2); ALKALINE PHOSPHATASE 151 U/L (35-104); ALT/SGPT 13 U/L (7.0-40); AST/SGOT 14 U/L (<34); BILIRUBIN,TOTAL 0.3 MG/DL (0.3-1.2); BLOOD UREA NITROGEN 42 MG/DL (9-23); CALCIUM LEVEL 8.8 MG/DL (8.3-10.6); CARBON DIOXIDE LEVEL 28 MMOL/L (20-31); CHLORIDE LEVEL 99 MMOL/L (98-107); CREATININE FOR GFR 0.86 MG/DL (0.55-1.30); GLOMERULAR FILTRATION RATE > 60.0 (>39); GLUCOSE, FASTING 199 MG/DL (74-106); IRON (FE) 43 UG/DL (50-170); PERCENT SATURATION 16.4 % (13.2-45.0); POTASSIUM SERUM 4.2 MMOL/L (3.5-5.1); SODIUM LEVEL 137 MMOL/L (136-145); TOTAL IRON BINDING CAPACITY 262 UG/DL (250-425); TOTAL PROTEIN 6.9 G/DL (5.7-8.2)
== END ==
LOC: M SFHCCLAY 16:43
PROVIDERS: ATTEND Internal Medicine Nephrology
DX: I51.89 Other ill-defined heart diseases (principal); I50.9 Heart failure, unspecified; E87.6 Hypokalemia; C91.90 Lymphoid leukemia, unspecified not having achieved remission

== ENCOUNTER → 2024-10-12 | Outpatient (REF) | payer MEDICARE, MEDICAID, OTHER ==
[~2024-10-12] MED LIST changes: +OXYC-673 PO
== END ==
LOC: M SFHCCLAY 16:39
PROVIDERS: ATTEND Nurse Practitioner Family
DX: R82.90 Unspecified abnormal findings in urine (principal)

== ENCOUNTER → 2024-10-19 | Outpatient (REF) | payer MEDICARE, MEDICAID, OTHER ==
[2024-10-19 19:16] LABS: ALBUMIN 3.7 G/DL (3.2-5.2); BILIRUBIN,TOTAL 0.4 MG/DL (0.3-1.2); CALCIUM LEVEL 9.5 MG/DL (8.3-10.6); CREATININE FOR GFR 1.12 MG/DL (0.55-1.30); GLOMERULAR FILTRATION RATE 50.9 (>39); POTASSIUM SERUM 4.3 MMOL/L (3.5-5.1); TOTAL PROTEIN 6.8 G/DL (5.7-8.2)
== END ==
LOC: M LABDRAWC 16:59
PROVIDERS: ATTEND Internal Medicine Nephrology
DX: I51.89 Other ill-defined heart diseases (principal)

== ENCOUNTER → 2024-10-24 | Outpatient (CLI) | payer MEDICARE, MEDICAID | LOC: M PLAIMG 12:51 | PROVIDERS: ATTEND Nurse Practitioner Family | DX: J47.9 Bronchiectasis, uncomplicated (principal) ==

== ENCOUNTER → 2024-10-24 | Outpatient (CLI) | payer MEDICARE, MEDICAID ==
[2024-10-24 14:45] LABS: HEMOGLOBIN 11.2 g/dl (12.0-15.5); MEAN CORPUSCULAR HEMOGLOBIN 37.5 pg (27.0-33.0); MEAN CORPUSCULAR HGB CONC 33.9 g/dl (32.0-36.5); MEAN CORPUSCULAR VOLUME 110.4 fl (80.0-96.0); PLATELET COUNT, AUTOMATED 543 10^3/uL (150-450); RED BLOOD COUNT 2.99 10^6/uL (4.00-5.40)
[2024-10-24 14:50] LABS: WHITE BLOOD COUNT 38.8 10^3/uL (4.0-10.0)
[2024-10-24 15:13] LABS: FERRITIN 1454.8 NG/ML (7.3-270.7)
== END ==
LOC: M PLALAB 13:17
PROVIDERS: ATTEND Internal Medicine Nephrology
DX: I51.89 Other ill-defined heart diseases (principal); D50.9 Iron deficiency anemia, unspecified

== ENCOUNTER → 2024-11-15 | Outpatient (CLI) | payer MEDICARE, MEDICAID ==
[~2024-11-15] VITALS: Ht 152.4 cm; Wt 70.0 kg
[~2024-11-15] MED LIST changes: +BUME1TAB3 PO
[2024-11-15 13:23] VITALS: BP 129/74; O2SAT 100
== END ==
LOC: M PAL 12:04
PROVIDERS: ATTEND Physician Assistant
DX: Z51.5 Encounter for palliative care (principal); C92.12 Chronic myeloid leukemia, BCR/ABL-positive, in relapse; G89.3 Neoplasm related pain (acute) (chronic); Z66 Do not resuscitate; Z79.891 Long term (current) use of opiate analgesic; Z79.899 Other long term (current) drug therapy; Z88.5 Allergy status to narcotic agent; Z88.2 Allergy status to sulfonamides; Z88.8 Allergy status to other drugs, medicaments and biological substances

== ENCOUNTER → 2024-11-22 | Outpatient (REF) | payer MEDICARE, MEDICAID ==
[2024-11-22 19:12] LABS: BASO # 8.9 10^3/uL (0.0-0.2); BASO % 6.9 % (0.0-1.0); EOS # 3.6 10^3/uL (0.0-0.5); EOS % 2.8 % (0.0-3.0); HEMATOCRIT 31.1 % (36.0-47.0); HEMOGLOBIN 10.7 g/dl (12.0-15.5); LYMPH # 4.4 10^3/uL (1.5-5.0); LYMPH % 3.4 % (24.0-44.0); MEAN CORPUSCULAR HEMOGLOBIN 37.7 pg (27.0-33.0); MEAN CORPUSCULAR HGB CONC 34.4 g/dl (32.0-36.5); MEAN CORPUSCULAR VOLUME 109.5 fl (80.0-96.0); MONO % 3.1 % (2.0-8.0); NEUTROPHILS # 65.5 10^3/uL (1.5-8.5); PLATELET COUNT, AUTOMATED 927 10^3/uL (150-450); RED BLOOD COUNT 2.84 10^6/uL (4.00-5.40)
[2024-11-22 19:23] LABS: MONO # 3.9 10^3/uL (0.0-0.8); WHITE BLOOD COUNT 128.6 10^3/uL (4.0-10.0)
[2024-11-22 19:45] LABS: ALBUMIN 3.8 G/DL (3.2-5.2); BILIRUBIN,TOTAL 0.4 MG/DL (0.3-1.2); CREATININE FOR GFR 1.08 MG/DL (0.55-1.30); GLOMERULAR FILTRATION RATE 53.1 (>39); POTASSIUM SERUM 3.9 MMOL/L (3.5-5.1); TOTAL PROTEIN 6.9 G/DL (5.7-8.2)
== END ==
LOC: M LABDRAWC 17:41
PROVIDERS: ATTEND Nurse Practitioner
DX: C91.10 Chronic lymphocytic leukemia of B-cell type not having achieved remission (principal)

== ENCOUNTER → 2024-11-22 | Outpatient (REF) | payer MEDICARE, MEDICAID ==
[2024-11-22 19:44] LABS: ALBUMIN 3.8 G/DL (3.2-5.2); BILIRUBIN,TOTAL 0.4 MG/DL (0.3-1.2); CREATININE FOR GFR 1.1 MG/DL (0.55-1.30); POTASSIUM SERUM 3.6 MMOL/L (3.5-5.1)
== END ==
LOC: M LABDRAWC 17:41
PROVIDERS: ATTEND Internal Medicine Nephrology
DX: I51.89 Other ill-defined heart diseases (principal)

== ENCOUNTER → 2024-12-19 | Outpatient (REF) | payer MEDICARE, MEDICAID ==
[2024-12-19 14:55] LABS: HEMATOCRIT 27.4 % (36.0-47.0); HEMOGLOBIN 9.4 g/dl (12.0-15.5); MEAN CORPUSCULAR HEMOGLOBIN 36.7 pg (27.0-33.0); MEAN CORPUSCULAR HGB CONC 34.3 g/dl (32.0-36.5); PLATELET COUNT, AUTOMATED 717 10^3/uL (150-450); RED BLOOD COUNT 2.56 10^6/uL (4.00-5.40)
[2024-12-19 14:57] LABS: WHITE BLOOD COUNT 158.3 10^3/uL (4.0-10.0)
[2024-12-19 15:17] LABS: ALBUMIN 3.8 G/DL (3.2-5.2); BILIRUBIN,TOTAL 0.6 MG/DL (0.3-1.2); CALCIUM LEVEL 9.6 MG/DL (8.3-10.6); CREATININE FOR GFR 1.33 MG/DL (0.55-1.30); GLOMERULAR FILTRATION RATE 42.5 (>39); TOTAL PROTEIN 7.1 G/DL (5.7-8.2)
== END ==
LOC: M LAB REF 14:22
PROVIDERS: ATTEND Internal Medicine Nephrology
DX: I51.89 Other ill-defined heart diseases (principal)

== ENCOUNTER → 2024-12-26 | Outpatient (REF) | payer MEDICARE, MEDICAID ==
[~2024-12-26] MED LIST changes: +TASI150C PO
[2024-12-26 18:02] LABS: BASO # 11.1 10^3/uL (0.0-0.2); BASO % 7.5 % (0.0-1.0); EOS % 3.4 % (0.0-3.0); HEMATOCRIT 27.1 % (36.0-47.0); HEMOGLOBIN 9.2 g/dl (12.0-15.5); LYMPH # 10.1 10^3/uL (1.5-5.0); LYMPH % 6.8 % (24.0-44.0); MEAN CORPUSCULAR HEMOGLOBIN 35.7 pg (27.0-33.0); MEAN CORPUSCULAR HGB CONC 33.9 g/dl (32.0-36.5); MONO % 3.7 % (2.0-8.0); NEUTROPHILS # 70.7 10^3/uL (1.5-8.5); NEUTROPHILS % 48.1 % (36.0-66.0); PLATELET COUNT, AUTOMATED 679 10^3/uL (150-450); RED BLOOD COUNT 2.58 10^6/uL (4.00-5.40)
[2024-12-26 18:03] LABS: URIC ACID 16.3 MG/DL (3.1-7.8)
[2024-12-26 18:06] LABS: ALBUMIN 3.7 G/DL (3.2-5.2); BILIRUBIN,TOTAL 0.8 MG/DL (0.3-1.2); CALCIUM LEVEL 9.1 MG/DL (8.3-10.6); CREATININE FOR GFR 1.29 MG/DL (0.55-1.30); GLOMERULAR FILTRATION RATE 44.1 (>39); PERCENT SATURATION 39.1 % (13.2-45.0); POTASSIUM SERUM 4.1 MMOL/L (3.5-5.1); TOTAL PROTEIN 6.6 G/DL (5.7-8.2)
[2024-12-26 18:08] LABS: FERRITIN 1559.8 NG/ML (7.3-270.7); FOLATE 9.1 NG/ML (>5.4)
[2024-12-26 18:18] LABS: MONO # 5.4 10^3/uL (0.0-0.8)
[2024-12-26 18:20] LABS: WHITE BLOOD COUNT 147.2 10^3/uL (4.0-10.0)
== END ==
LOC: M LAB REF 17:45
PROVIDERS: ATTEND Nurse Practitioner
DX: C91.10 Chronic lymphocytic leukemia of B-cell type not having achieved remission (principal)

== ENCOUNTER → 2025-01-02 | Outpatient (REF) | payer MEDICARE, MEDICAID ==
[2025-01-02 18:33] LABS: HEMATOCRIT 27.7 % (36.0-47.0); HEMOGLOBIN 9.2 g/dl (12.0-15.5); MEAN CORPUSCULAR HEMOGLOBIN 35.8 pg (27.0-33.0); MEAN CORPUSCULAR HGB CONC 33.2 g/dl (32.0-36.5); MEAN CORPUSCULAR VOLUME 107.8 fl (80.0-96.0); PLATELET COUNT, AUTOMATED 717 10^3/uL (150-450); RED BLOOD COUNT 2.57 10^6/uL (4.00-5.40); WHITE BLOOD COUNT 141.5 10^3/uL (4.0-10.0)
[2025-01-02 18:50] LABS: CALCIUM LEVEL 8.6 MG/DL (8.3-10.6); CREATININE FOR GFR 1.08 MG/DL (0.55-1.30); GLOMERULAR FILTRATION RATE 54.6 (>39); MAGNESIUM LEVEL 2.2 MG/DL (1.8-2.4); POTASSIUM SERUM 4.9 MMOL/L (3.5-5.1)
[2025-01-02 19:41] LABS: BASOPHILS 9 % (0-1); EOSINOPHILS 5 % (0-3); LYMPHOCYTES 3 % (16-44); METAMYELOCYTES 11 % (0-0); MONOCYTES 5 % (0-5); MYELOCYTES 21 % (0-0); NEUTROPHILS 41 % (28-66); PLATELET ESTIMATE INCREASED (NORMAL); PROMYELOCYTES 1 % (0-0)
== END ==
LOC: M LABDRAWC 16:25
PROVIDERS: ATTEND Physician Assistant
DX: I50.22 Chronic systolic (congestive) heart failure (principal); I47.19 Other supraventricular tachycardia

== ENCOUNTER → 2025-01-02 | Outpatient (REF) | payer MEDICARE, MEDICAID ==
[2025-01-02 17:59] LABS: BASO # 12.7 10^3/uL (0.0-0.2); EOS # 5.6 10^3/uL (0.0-0.5); HEMATOCRIT 27.7 % (36.0-47.0); HEMOGLOBIN 9.2 g/dl (12.0-15.5); LYMPH # 11.2 10^3/uL (1.5-5.0); LYMPH % 7.9 % (24.0-44.0); MEAN CORPUSCULAR HEMOGLOBIN 35.8 pg (27.0-33.0); MEAN CORPUSCULAR HGB CONC 33.2 g/dl (32.0-36.5); MEAN CORPUSCULAR VOLUME 107.8 fl (80.0-96.0); MONO % 2.8 % (2.0-8.0); NEUTROPHILS # 62.8 10^3/uL (1.5-8.5); NEUTROPHILS % 44.4 % (36.0-66.0); PLATELET COUNT, AUTOMATED 717 10^3/uL (150-450); RED BLOOD COUNT 2.57 10^6/uL (4.00-5.40)
[2025-01-02 18:12] LABS: URIC ACID 12.9 MG/DL (3.1-7.8)
[2025-01-02 18:15] LABS: ALBUMIN 3.6 G/DL (3.2-5.2); BILIRUBIN,TOTAL 0.6 MG/DL (0.3-1.2); CALCIUM LEVEL 8.6 MG/DL (8.3-10.6); CREATININE FOR GFR 1.08 MG/DL (0.55-1.30); GLOMERULAR FILTRATION RATE 54.6 (>39); PERCENT SATURATION 32.2 % (13.2-45.0); TOTAL PROTEIN 6.7 G/DL (5.7-8.2)
[2025-01-02 18:16] LABS: FOLATE 9.2 NG/ML (>5.4)
[2025-01-02 18:31] LABS: WHITE BLOOD COUNT 141.5 10^3/uL (4.0-10.0)
== END ==
LOC: M LABDRAWC 16:22
PROVIDERS: ATTEND Nurse Practitioner
DX: C91.00 Acute lymphoblastic leukemia not having achieved remission (principal)

== ENCOUNTER → 2025-01-10 | Outpatient (REF) | payer MEDICARE, MEDICAID ==
[~2025-01-10] MED LIST changes: +AMMO12CR4 TOP; -AMMO12CR7 TOP
[2025-01-10 18:08] LABS: HEMOGLOBIN 8.3 g/dl (12.0-15.5); MEAN CORPUSCULAR HEMOGLOBIN 34.6 pg (27.0-33.0); MEAN CORPUSCULAR HGB CONC 33.2 g/dl (32.0-36.5); MEAN CORPUSCULAR VOLUME 104.2 fl (80.0-96.0); PLATELET COUNT, AUTOMATED 837 10^3/uL (150-450)
[2025-01-10 18:38] LABS: WHITE BLOOD COUNT 103.3 10^3/uL (4.0-10.0)
[2025-01-10 18:40] LABS: CALCIUM LEVEL 9.1 MG/DL (8.3-10.6); CREATININE FOR GFR 1.35 MG/DL (0.55-1.30); GLOMERULAR FILTRATION RATE 41.8 (>39); MAGNESIUM LEVEL 2.2 MG/DL (1.8-2.4); POTASSIUM SERUM 4.6 MMOL/L (3.5-5.1)
[2025-01-10 18:51] LABS: ANISOCYTOSIS 1+; BASOPHILS 9 % (0-1); EOSINOPHILS 2 % (0-3); LYMPHOCYTES 2 % (16-44); METAMYELOCYTES 1 % (0-0); MONOCYTES 2 % (0-5); MYELOCYTES 12 % (0-0); NEUTROPHILS 65 % (28-66); PLATELET ESTIMATE INCREASED (NORMAL); PROMYELOCYTES 5 % (0-0)
== END ==
LOC: M LAB REF 17:27
PROVIDERS: ATTEND Physician Assistant
DX: I50.22 Chronic systolic (congestive) heart failure (principal); I47.19 Other supraventricular tachycardia

== ENCOUNTER → 2025-01-10 | Outpatient (REF) | payer MEDICARE, MEDICAID ==
[2025-01-10 18:24] LABS: BASO # 6.2 10^3/uL (0.0-0.2); EOS # 1.7 10^3/uL (0.0-0.5); EOS % 1.6 % (0.0-3.0); HEMATOCRIT 24.4 % (36.0-47.0); HEMOGLOBIN 8.3 g/dl (12.0-15.5); LYMPH # 6.5 10^3/uL (1.5-5.0); LYMPH % 6.3 % (24.0-44.0); MEAN CORPUSCULAR HEMOGLOBIN 35.2 pg (27.0-33.0); MEAN CORPUSCULAR VOLUME 103.4 fl (80.0-96.0); MONO % 3.3 % (2.0-8.0); NEUTROPHILS # 50.3 10^3/uL (1.5-8.5); NEUTROPHILS % 48.7 % (36.0-66.0); PLATELET COUNT, AUTOMATED 813 10^3/uL (150-450); RED BLOOD COUNT 2.36 10^6/uL (4.00-5.40)
[2025-01-10 18:35] LABS: MONO # 3.4 10^3/uL (0.0-0.8); URIC ACID 14.7 MG/DL (3.1-7.8); WHITE BLOOD COUNT 103.3 10^3/uL (4.0-10.0)
[2025-01-10 18:39] LABS: ALBUMIN 3.8 G/DL (3.2-5.2); BILIRUBIN,TOTAL 0.4 MG/DL (0.3-1.2); CALCIUM LEVEL 9.2 MG/DL (8.3-10.6); CREATININE FOR GFR 1.43 MG/DL (0.55-1.30); PERCENT SATURATION 49.7 % (13.2-45.0); POTASSIUM SERUM 4.7 MMOL/L (3.5-5.1); TOTAL PROTEIN 6.8 G/DL (5.7-8.2)
[2025-01-10 18:41] LABS: FERRITIN 1377.9 NG/ML (7.3-270.7); FOLATE 11.92 NG/ML (>5.4)
== END ==
LOC: M LABDRAWC 17:25
PROVIDERS: ATTEND Nurse Practitioner
DX: C92.10 Chronic myeloid leukemia, BCR/ABL-positive, not having achieved remission (principal)

== ENCOUNTER → 2025-02-27 | Outpatient (REF) | payer MEDICARE, MEDICAID ==
[~2025-02-27] MED LIST changes: +ALLO100T PO; -AMIO200T49 PO; +AMIO200T54 PO; +DULO30CA9 PO
[2025-02-27 17:58] LABS: PLATELET COUNT, AUTOMATED 426 10^3/uL (150-450)
[2025-02-27 18:24] LABS: ALT/SGPT 17.0 U/L (7.0-40); AST/SGOT 18.0 U/L (<34); CALCIUM LEVEL 8.4 MG/DL (8.3-10.6); CARBON DIOXIDE LEVEL 27.0 MMOL/L (20-31); CHLORIDE LEVEL 98.0 MMOL/L (98-107); CREATININE FOR GFR 1.15 MG/DL (0.55-1.30); GLOMERULAR FILTRATION RATE 50.6 (>39); IRON (FE) 23.0 UG/DL (50-170); PERCENT SATURATION 8.6 % (13.2-45.0); POTASSIUM SERUM 4.3 MMOL/L (3.5-5.1); SODIUM LEVEL 134.0 MMOL/L (136-145)
== END ==
LOC: M LAB REF 15:44
PROVIDERS: ATTEND Internal Medicine Nephrology
DX: I51.89 Other ill-defined heart diseases (principal); C92.10 Chronic myeloid leukemia, BCR/ABL-positive, not having achieved remission

== ENCOUNTER → 2025-02-27 | Outpatient (REF) | payer MEDICARE, MEDICAID ==
[2025-02-27 18:00] LABS: BASO # 1.1 10^3/uL (0.0-0.2); BASO % 11.0 % (0.0-1.0); EOS # 0.2 10^3/uL (0.0-0.5); EOS % 1.9 % (0.0-3.0); LYMPH # 1.3 10^3/uL (1.5-5.0); LYMPH % 13.3 % (24.0-44.0); MONO # 0.3 10^3/uL (0.0-0.8); MONO % 3.0 % (2.0-8.0); NEUTROPHILS # 6.8 10^3/uL (1.5-8.5); NEUTROPHILS % 70.3 % (36.0-66.0); PLATELET COUNT, AUTOMATED 424 10^3/uL (150-450)
[2025-02-27 18:23] LABS: ALT/SGPT 17.0 U/L (7.0-40); AST/SGOT 18.0 U/L (<34); CALCIUM LEVEL 8.3 MG/DL (8.3-10.6); CARBON DIOXIDE LEVEL 27.0 MMOL/L (20-31); CHLORIDE LEVEL 97.0 MMOL/L (98-107); CREATININE FOR GFR 1.14 MG/DL (0.55-1.30); GLOMERULAR FILTRATION RATE 51.2 (>39); POTASSIUM SERUM 4.3 MMOL/L (3.5-5.1); SODIUM LEVEL 134.0 MMOL/L (136-145)
== END ==
LOC: M LAB REF 15:46
PROVIDERS: ATTEND Specialist
DX: C92.10 Chronic myeloid leukemia, BCR/ABL-positive, not having achieved remission (principal)

== ENCOUNTER → 2025-03-07 | Outpatient (CLI) | payer MEDICARE, MEDICAID | LOC: M EKG 10:10 | PROVIDERS: ATTEND Specialist | DX: C91.Z0 Other lymphoid leukemia not having achieved remission (principal) ==

== ENCOUNTER → 2025-04-09 | Outpatient (REF) | payer MEDICARE, MEDICAID ==
[2025-04-09 18:31] LABS: BASO # 0.1 10^3/uL (0.0-0.2); BASO % 3.0 % (0.0-1.0); EOS # 0.0 10^3/uL (0.0-0.5); EOS % 0.4 % (0.0-3.0); LDH LACTATE DEHYDROGENASE 180.0 U/L (120-246); LYMPH # 0.5 10^3/uL (1.5-5.0); LYMPH % 10.7 % (24.0-44.0); MONO # 0.3 10^3/uL (0.0-0.8); MONO % 6.4 % (2.0-8.0); NEUTROPHILS # 3.7 10^3/uL (1.5-8.5); NEUTROPHILS % 79.3 % (36.0-66.0); PLATELET COUNT, AUTOMATED 295 10^3/uL (150-450)
[2025-04-09 18:32] LABS: ALT/SGPT 28.0 U/L (7.0-40); AST/SGOT 22.0 U/L (<34); CALCIUM LEVEL 8.4 MG/DL (8.3-10.6); CARBON DIOXIDE LEVEL 26.0 MMOL/L (20-31); CHLORIDE LEVEL 99.0 MMOL/L (98-107); CREATININE FOR GFR 0.8 MG/DL (0.55-1.30); GLOMERULAR FILTRATION RATE 78.2 (>39); POTASSIUM SERUM 4.0 MMOL/L (3.5-5.1); SODIUM LEVEL 136.0 MMOL/L (136-145)
== END ==
LOC: M LAB REF 17:27
PROVIDERS: ATTEND Nurse Practitioner
DX: C91.10 Chronic lymphocytic leukemia of B-cell type not having achieved remission (principal)

== ENCOUNTER → 2025-04-16 | Outpatient (REF) | payer MEDICARE, MEDICAID ==
[2025-04-16 19:12] LABS: BASO # 0.2 10^3/uL (0.0-0.2); BASO % 3.1 % (0.0-1.0); EOS # 0.0 10^3/uL (0.0-0.5); EOS % 0.7 % (0.0-3.0); LYMPH # 0.6 10^3/uL (1.5-5.0); LYMPH % 10.2 % (24.0-44.0); MONO # 0.3 10^3/uL (0.0-0.8); MONO % 4.6 % (2.0-8.0); NEUTROPHILS # 4.7 10^3/uL (1.5-8.5); NEUTROPHILS % 80.9 % (36.0-66.0); PLATELET COUNT, AUTOMATED 399 10^3/uL (150-450)
[2025-04-17 13:33] LABS: ALT/SGPT 24.0 U/L (7.0-40); AST/SGOT 16.0 U/L (<34); CALCIUM LEVEL 8.4 MG/DL (8.3-10.6); CARBON DIOXIDE LEVEL 24.0 MMOL/L (20-31); CHLORIDE LEVEL 98.0 MMOL/L (98-107); CREATININE FOR GFR 0.88 MG/DL (0.55-1.30); GLOMERULAR FILTRATION RATE 69.8 (>39); POTASSIUM SERUM 5.5 MMOL/L (3.5-5.1); SODIUM LEVEL 134.0 MMOL/L (136-145)
== END ==
LOC: M LAB REF 17:20
PROVIDERS: ATTEND Nurse Practitioner
DX: C92.90 Myeloid leukemia, unspecified, not having achieved remission (principal)

== ENCOUNTER → 2025-04-25 | Outpatient (REF) | payer MEDICARE, MEDICAID ==
[2025-04-25 15:55] LABS: BASO # 0.2 10^3/uL (0.0-0.2); BASO % 2.9 % (0.0-1.0); EOS # 0.0 10^3/uL (0.0-0.5); EOS % 0.3 % (0.0-3.0); LYMPH # 0.8 10^3/uL (1.5-5.0); LYMPH % 13.9 % (24.0-44.0); MONO # 0.5 10^3/uL (0.0-0.8); MONO % 8.5 % (2.0-8.0); NEUTROPHILS # 4.3 10^3/uL (1.5-8.5); NEUTROPHILS % 74.1 % (36.0-66.0); PLATELET COUNT, AUTOMATED 261 10^3/uL (150-450)
== END ==
LOC: M LAB REF 14:37
PROVIDERS: ATTEND Nurse Practitioner
DX: C92.10 Chronic myeloid leukemia, BCR/ABL-positive, not having achieved remission (principal)

== ENCOUNTER → 2025-04-30 | Outpatient (REF) | payer MEDICARE, MEDICAID ==
[2025-04-30 18:35] LABS: BASO # 0.2 10^3/uL (0.0-0.2); BASO % 3.4 % (0.0-1.0); EOS # 0.1 10^3/uL (0.0-0.5); EOS % 1.0 % (0.0-3.0); LYMPH # 0.8 10^3/uL (1.5-5.0); LYMPH % 15.6 % (24.0-44.0); MONO # 0.2 10^3/uL (0.0-0.8); MONO % 4.8 % (2.0-8.0); NEUTROPHILS # 3.8 10^3/uL (1.5-8.5); NEUTROPHILS % 74.8 % (36.0-66.0); PLATELET COUNT, AUTOMATED 295 10^3/uL (150-450)
== END ==
LOC: M LAB REF 17:50
PROVIDERS: ATTEND Nurse Practitioner
DX: C92.10 Chronic myeloid leukemia, BCR/ABL-positive, not having achieved remission (principal)

== ENCOUNTER → 2025-05-07 | Outpatient (REF) | payer MEDICARE, MEDICAID ==
[2025-05-07 15:44] LABS: BASO # 0.3 10^3/uL (0.0-0.2); BASO % 3.8 % (0.0-1.0); EOS # 0.0 10^3/uL (0.0-0.5); EOS % 0.5 % (0.0-3.0); LYMPH # 1.0 10^3/uL (1.5-5.0); LYMPH % 11.4 % (24.0-44.0); MONO # 0.5 10^3/uL (0.0-0.8); MONO % 5.3 % (2.0-8.0); NEUTROPHILS # 6.6 10^3/uL (1.5-8.5); NEUTROPHILS % 78.2 % (36.0-66.0); PLATELET COUNT, AUTOMATED 453 10^3/uL (150-450)
== END ==
LOC: M LAB REF 14:57
PROVIDERS: ATTEND Nurse Practitioner
DX: C92.10 Chronic myeloid leukemia, BCR/ABL-positive, not having achieved remission (principal)

== ENCOUNTER 2025-05-14 23:09 | Emergency (ER) | payer MEDICARE, MEDICAID ==
[~2025-05-14] VITALS: Ht 154.9 cm; Wt 70.9 kg
[2025-05-15 02:09] LABS: BASO # 0.5 10^3/uL (0.0-0.2); BASO % 3.6 % (0.0-1.0); EOS # 0.0 10^3/uL (0.0-0.5); EOS % 0.0 % (0.0-3.0); LYMPH # 0.8 10^3/uL (1.5-5.0); LYMPH % 5.6 % (24.0-44.0); MONO # 0.8 10^3/uL (0.0-0.8); MONO % 5.7 % (2.0-8.0); NEUTROPHILS # 12.3 10^3/uL (1.5-8.5); NEUTROPHILS % 84.0 % (36.0-66.0); PLATELET COUNT, AUTOMATED 615 10^3/uL (150-450)
[2025-05-15 02:23] LABS: INR 1.22
[2025-05-15 02:40] LABS: CK-MB VALUE MASS 1.9 NG/ML (<3.6)
[2025-05-15 02:42] LABS: CPK CREATINE PHOSPHOKINASE 61.0 U/L (34-145); MB/CK RELATIVE INDEX 3.11 (< OR =4)
[2025-05-15 02:44] LABS: CALCIUM LEVEL 8.6 MG/DL (8.3-10.6); CARBON DIOXIDE LEVEL 24.0 MMOL/L (20-31); CHLORIDE LEVEL 100.0 MMOL/L (98-107); CREATININE FOR GFR 0.92 MG/DL (0.55-1.30); GLOMERULAR FILTRATION RATE 66.2 (>39); POTASSIUM SERUM 4.6 MMOL/L (3.5-5.1); SODIUM LEVEL 134.0 MMOL/L (136-145)
[2025-05-15] MEDS: MORPHINE 4 MG/ML 1 ML VIAL IM ONE (05:57)
[2025-05-15 14:02] VITALS: BP 174/84; TEMP 98.5; O2SAT 97
[2025-05-16] MEDS ORDERED: GLIM4TAB5 PO (15:53)
== END 2025-05-15 14:11 | disposition home or self-care (01) ==
LOC: M ED 23:09
DX: M25.562 Pain in left knee (principal); I45.81 Long QT syndrome; I25.119 Atherosclerotic heart disease of native coronary artery with unspecified angina pectoris; I50.22 Chronic systolic (congestive) heart failure; I25.2 Old myocardial infarction; E11.9 Type 2 diabetes mellitus without complications; K21.9 Gastro-esophageal reflux disease without esophagitis; Z86.73 Personal history of transient ischemic attack (TIA), and cerebral infarction without residual deficits; Z88.2 Allergy status to sulfonamides; Z88.1 Allergy status to other antibiotic agents; Z88.8 Allergy status to other drugs, medicaments and biological substances; Z79.1 Long term (current) use of non-steroidal anti-inflammatories (NSAID); Z79.01 Long term (current) use of anticoagulants; Z79.899 Other long term (current) drug therapy

== ENCOUNTER → 2025-05-14 | Outpatient (REF) | payer MEDICARE, MEDICAID ==
[2025-05-14 15:58] LABS: BASO # 0.7 10^3/uL (0.0-0.2); BASO % 7.9 % (0.0-1.0); EOS # 0.0 10^3/uL (0.0-0.5); EOS % 0.4 % (0.0-3.0); LYMPH # 1.1 10^3/uL (1.5-5.0); LYMPH % 13.3 % (24.0-44.0); MONO # 0.5 10^3/uL (0.0-0.8); MONO % 5.8 % (2.0-8.0); NEUTROPHILS # 6.0 10^3/uL (1.5-8.5); NEUTROPHILS % 71.4 % (36.0-66.0); PLATELET COUNT, AUTOMATED 682 10^3/uL (150-450)
== END ==
LOC: M SHH 15:34
PROVIDERS: ATTEND Nurse Practitioner
DX: C91.10 Chronic lymphocytic leukemia of B-cell type not having achieved remission (principal)

== ENCOUNTER 2025-05-16 13:05 | Inpatient (IN) | payer MEDICARE, MEDICAID ==
[~2025-05-16] VITALS: Ht 152.4 cm; Wt 67.0 kg
[2025-05-16 14:32] LABS: BASO # 0.5 10^3/uL (0.0-0.2); BASO % 3.8 % (0.0-1.0); EOS # 0.0 10^3/uL (0.0-0.5); EOS % 0.1 % (0.0-3.0); LYMPH # 0.8 10^3/uL (1.5-5.0); LYMPH % 6.5 % (24.0-44.0); MONO # 0.6 10^3/uL (0.0-0.8); MONO % 4.9 % (2.0-8.0); NEUTROPHILS # 10.9 10^3/uL (1.5-8.5); NEUTROPHILS % 84.2 % (36.0-66.0); PLATELET COUNT, AUTOMATED 773 10^3/uL (150-450)
[2025-05-16 14:42] LABS: INR 1.14
[2025-05-16] MEDS: ACETAMINOPHEN 325 MG TAB PO ONE (14:58)
[2025-05-16 15:11] LABS: ALT/SGPT 19 U/L (7.0-40); AST/SGOT 35 U/L (<34); CALCIUM LEVEL 8.3 MG/DL (8.3-10.6); CARBON DIOXIDE LEVEL 25 MMOL/L (20-31); CHLORIDE LEVEL 100 MMOL/L (98-107); CK-MB VALUE MASS 1.7 NG/ML (<3.6); CPK CREATINE PHOSPHOKINASE 101 U/L (34-145); CREATININE FOR GFR 0.67 MG/DL (0.55-1.30); FREE T4 0.63 NG/DL (0.89-1.76); GLOMERULAR FILTRATION RATE > 90.0 (>39); MB/CK RELATIVE INDEX 1.68 (< OR =4); POTASSIUM SERUM 5.9 MMOL/L (3.5-5.1); SODIUM LEVEL 134 MMOL/L (136-145)
[2025-05-16] MEDS ORDERED: GLIM4TAB5 PO (15:53)
[2025-05-16] MEDS ORDERED: HOME MED LIST COMPLETE! XX SCH (15:55)
[2025-05-16 16:07] LABS: POTASSIUM SERUM 4.6 MMOL/L (3.5-5.1)
[2025-05-16] MEDS: AZITHROMYCIN 250 MG TABLET PO ONE (16:07)
[2025-05-16] MEDS: cefTRIAXone SOD 1 GM in DEXTROSE 5% (D5W) ADV/MINI-BAG 50 ML IV ONE (16:07)
[2025-05-16] MEDS: NS (Normal Saline) 0.9% 1,000 ML IV SCH (18:00)
[2025-05-16] MEDS ORDERED: ISOVUE-370 76% 100 ML VIAL As Ordered ONE (18:09)
[2025-05-16] MEDS: MORPHINE 4 MG/ML 1 ML VIAL IV ONE (18:26)
[2025-05-16] MEDS: INSULIN LISPRO (NovoLOG) PER UNIT SC SCH (21:00)
[2025-05-16] MEDS ORDERED: GLUCAGON INJ 1 MG VIAL SC PRN (21:55)
[2025-05-16] MEDS ORDERED: GLUCOSE 4 GM CHEW PO PRN (21:55)
[2025-05-16] MEDS ORDERED: PERCOCET 5MG/325MG TAB PO PRN (21:55)
[2025-05-16] MEDS ORDERED: DEXTROSE 50% 50 ML SYRINGE IV PRN (21:55)
[2025-05-16 22:24] LABS: PHOSPHORUS LEVEL 2.8 MG/DL (2.4-5.1)
[2025-05-16] MEDS: DOCUSATE SODIUM 100 MG CAPSULE PO SCH (22:39)
[2025-05-16] MEDS: APIXABAN 2.5 MG TAB PO SCH (22:39)
[2025-05-16 23:00] VITALS: BP 153/77; TEMP 97.3
[2025-05-17] MEDS: PERCOCET 5MG/325MG TAB PO PRN
[2025-05-17] MEDS: LEVOTHYROXINE 88 MCG TABLET (0.088 MG) PO ONE
[2025-05-17] MEDS: FUROSEMIDE 40 MG/4 ML VIAL IV ONE (00:02)
[2025-05-17 01:02] LABS: PHOSPHORUS LEVEL 2.8 MG/DL (2.4-5.1)
[2025-05-17 06:00] VITALS: BP 154/78; TEMP 97; O2SAT 100
[2025-05-17] MEDS ORDERED: LEVOTHYROXINE 88 MCG TABLET (0.088 MG) PO SCH (06:00)
[2025-05-17] MEDS: LEVOTHYROXINE 50 MCG TABLET (0.05 MG) PO SCH (06:53)
[2025-05-17 06:57] LABS: BASO # 0.6 10^3/uL (0.0-0.2); BASO % 6.5 % (0.0-1.0); EOS # 0.1 10^3/uL (0.0-0.5); EOS % 0.5 % (0.0-3.0); LYMPH # 0.9 10^3/uL (1.5-5.0); LYMPH % 9.6 % (24.0-44.0); MONO # 0.6 10^3/uL (0.0-0.8); MONO % 5.7 % (2.0-8.0); NEUTROPHILS # 7.4 10^3/uL (1.5-8.5); NEUTROPHILS % 77.2 % (36.0-66.0)
[2025-05-17 06:58] LABS: PLATELET COUNT, AUTOMATED 665 10^3/uL (150-450)
[2025-05-17 07:17] LABS: CALCIUM LEVEL 8.1 MG/DL (8.3-10.6); CARBON DIOXIDE LEVEL 27.0 MMOL/L (20-31); CHLORIDE LEVEL 103.0 MMOL/L (98-107); CREATININE FOR GFR 0.72 MG/DL (0.55-1.30); GLOMERULAR FILTRATION RATE 88.8 (>39); POTASSIUM SERUM 4.0 MMOL/L (3.5-5.1); SODIUM LEVEL 137.0 MMOL/L (136-145)
[2025-05-17] MEDS: INSULIN LISPRO (NovoLOG) PER UNIT SC SCH (08:38)
[2025-05-17] MEDS: DOXYCYCLINE HYCLATE 100 MG TABLET PO SCH (08:38)
[2025-05-17] MEDS: FUROSEMIDE 40 MG/4 ML VIAL IV SCH (08:41)
[2025-05-17] MEDS: CEFDINIR 300 MG CAP PO SCH (12:43)
[2025-05-17 14:00] VITALS: BP 131/70; TEMP 97.2
[2025-05-17] MEDS ORDERED: cefTRIAXone SOD 1 GM in DEXTROSE 5% (D5W) ADV/MINI-BAG 50 ML IV SCH (16:00)
[2025-05-17 19:52] LABS: CALCIUM LEVEL 8.2 MG/DL (8.3-10.6); CARBON DIOXIDE LEVEL 26.0 MMOL/L (20-31); CHLORIDE LEVEL 102.0 MMOL/L (98-107); CREATININE FOR GFR 0.72 MG/DL (0.55-1.30); GLOMERULAR FILTRATION RATE 88.8 (>39); POTASSIUM SERUM 4.2 MMOL/L (3.5-5.1); SODIUM LEVEL 138.0 MMOL/L (136-145)
[2025-05-17 20:23] VITALS: BP 131/86; TEMP 97.2; O2SAT 97
[2025-05-18] MEDS: LEVOTHYROXINE 88 MCG TABLET (0.088 MG) PO SCH (05:20)
[2025-05-18 06:12] VITALS: BP 135/84; TEMP 97.2; O2SAT 97
[2025-05-18 07:49] LABS: PLATELET COUNT, AUTOMATED 751 10^3/uL (150-450)
[2025-05-18 07:57] LABS: CALCIUM LEVEL 8.2 MG/DL (8.3-10.6); CARBON DIOXIDE LEVEL 24 MMOL/L (20-31); CHLORIDE LEVEL 102 MMOL/L (98-107); CREATININE FOR GFR 0.64 MG/DL (0.55-1.30); GLOMERULAR FILTRATION RATE > 90.0 (>39); POTASSIUM SERUM 4.4 MMOL/L (3.5-5.1); SODIUM LEVEL 135 MMOL/L (136-145)
[2025-05-18 08:47] LABS: BASOPHILS 6 % (0-1); LYMPHOCYTES 6 % (16-44); MONOCYTES 4 % (0-5); NEUTROPHILS 84 % (28-66)
[2025-05-18 08:48] LABS: PLATELET ESTIMATE INCREASED (NORMAL)
[2025-05-18] MEDS: LIDOCAINE 5% PATCH TD SCH (09:31)
[2025-05-18 14:00] VITALS: BP 153/82; TEMP 97.3
[2025-05-18 20:17] VITALS: BP 136/70; TEMP 97.2; O2SAT 96
[2025-05-19 06:00] VITALS: BP 141/72; TEMP 97.3; O2SAT 99
[2025-05-19 08:42] LABS: BASO # 0.9 10^3/uL (0.0-0.2); BASO % 7.5 % (0.0-1.0); EOS # 0.2 10^3/uL (0.0-0.5); EOS % 1.2 % (0.0-3.0); LYMPH # 1.2 10^3/uL (1.5-5.0); LYMPH % 9.6 % (24.0-44.0); MONO # 0.7 10^3/uL (0.0-0.8); MONO % 5.8 % (2.0-8.0); NEUTROPHILS # 9.1 10^3/uL (1.5-8.5); NEUTROPHILS % 74.9 % (36.0-66.0); PLATELET COUNT, AUTOMATED 750 10^3/uL (150-450)
[2025-05-19 09:14] LABS: CALCIUM LEVEL 8.1 MG/DL (8.3-10.6); CARBON DIOXIDE LEVEL 27 MMOL/L (20-31); CHLORIDE LEVEL 98 MMOL/L (98-107); CREATININE FOR GFR 0.64 MG/DL (0.55-1.30); GLOMERULAR FILTRATION RATE > 90.0 (>39); POTASSIUM SERUM 3.9 MMOL/L (3.5-5.1); SODIUM LEVEL 132 MMOL/L (136-145)
[2025-05-19] MEDS: SPIRONOLACTONE 12.5MG PER 1/2 TABLET PO SCH (12:28)
[2025-05-19 14:00] VITALS: BP 126/61; TEMP 97.5; O2SAT 98
[2025-05-19] MEDS: TORSEMIDE 20 MG TAB PO SCH (17:16)
[2025-05-19 20:00] VITALS: BP 109/52; TEMP 97.2; O2SAT 96
[2025-05-19] MEDS: MORPHINE 4 MG/ML 1 ML VIAL IV PRN (20:11)
[2025-05-19 20:31] VITALS: BP 109/52; TEMP 97.2; O2SAT 96
[2025-05-19] MEDS: ACETAMINOPHEN 325 MG TAB PO PRN (23:53)
[2025-05-20 06:00] VITALS: BP 137/74; TEMP 97.3; O2SAT 97
[2025-05-20 08:12] LABS: PLATELET COUNT, AUTOMATED 696 10^3/uL (150-450)
[2025-05-20 08:41] LABS: CALCIUM LEVEL 8.0 MG/DL (8.3-10.6); CARBON DIOXIDE LEVEL 28.0 MMOL/L (20-31); CHLORIDE LEVEL 99.0 MMOL/L (98-107); CREATININE FOR GFR 0.75 MG/DL (0.55-1.30); GLOMERULAR FILTRATION RATE 84.5 (>39); POTASSIUM SERUM 3.9 MMOL/L (3.5-5.1); SODIUM LEVEL 133.0 MMOL/L (136-145)
[2025-05-20] MEDS: MIRALAX *UNIT DOSE* 17 GM PACKET PO PRN (13:05)
[2025-05-20 13:11] VITALS: BP 138/70; TEMP 97.7; O2SAT 95
[2025-05-20] MEDS: SENNOSIDES/DOCUSATE SODIUM 8.6 MG/50MG TAB PO SCH (19:57)
[2025-05-20 20:30] VITALS: BP 129/66; TEMP 97.3; O2SAT 97
[2025-05-21 06:00] VITALS: BP 130/66; TEMP 97.3; O2SAT 96
[2025-05-21 06:35] LABS: PLATELET COUNT, AUTOMATED 691 10^3/uL (150-450)
[2025-05-21] MEDS ORDERED: NILOTINIB 150 MG PO SCH (07:05)
[2025-05-21 07:10] LABS: CALCIUM LEVEL 8.2 MG/DL (8.3-10.6); CARBON DIOXIDE LEVEL 29 MMOL/L (20-31); CHLORIDE LEVEL 99 MMOL/L (98-107); CREATININE FOR GFR 0.70 MG/DL (0.55-1.30); GLOMERULAR FILTRATION RATE > 90.0 (>39); POTASSIUM SERUM 4.0 MMOL/L (3.5-5.1); SODIUM LEVEL 136 MMOL/L (136-145)
[2025-05-21 07:35] LABS: TOTAL 25(OH) VITAMIN D 11.2 NG/ML (20.0-100.0)
[2025-05-21 10:00] VITALS: BP 130/65; TEMP 97.3; O2SAT 99
[2025-05-21 12:00] VITALS: BP 115/69; TEMP 97.9; O2SAT 98
[2025-05-21] MEDS: VITAMIN D 50,000 UNITS CAPSULE (ERGOCALCIFEROL 1.25MG) PO SCH (16:42)
[2025-05-21 20:28] VITALS: BP 113/68; TEMP 96.6; O2SAT 100
[2025-05-22 05:58] VITALS: BP 139/66; TEMP 97.3; O2SAT 71
[2025-05-22 08:06] LABS: PLATELET COUNT, AUTOMATED 735 10^3/uL (150-450)
[2025-05-22 08:31] LABS: CALCIUM LEVEL 8.1 MG/DL (8.3-10.6); CARBON DIOXIDE LEVEL 30 MMOL/L (20-31); CHLORIDE LEVEL 99 MMOL/L (98-107); CREATININE FOR GFR 0.70 MG/DL (0.55-1.30); GLOMERULAR FILTRATION RATE > 90.0 (>39); POTASSIUM SERUM 4.2 MMOL/L (3.5-5.1); SODIUM LEVEL 135 MMOL/L (136-145)
[2025-05-22 14:00] VITALS: BP 134/64; TEMP 97.2; O2SAT 98
[2025-05-22] MEDS: LIDOCAINE 5% PATCH TD ONE (18:26)
[2025-05-22 19:28] VITALS: BP 132/66; TEMP 97.3; O2SAT 99
[2025-05-23 04:00] VITALS: TEMP 97.3; O2SAT 100
[2025-05-23] MEDS: FLEET ENEMA PR PRN (05:22)
[2025-05-23 07:13] LABS: PLATELET COUNT, AUTOMATED 690 10^3/uL (150-450)
[2025-05-23 07:41] LABS: CALCIUM LEVEL 8.5 MG/DL (8.3-10.6); CARBON DIOXIDE LEVEL 31.0 MMOL/L (20-31); CHLORIDE LEVEL 95.0 MMOL/L (98-107); CREATININE FOR GFR 0.77 MG/DL (0.55-1.30); GLOMERULAR FILTRATION RATE 81.9 (>39); MAGNESIUM LEVEL 1.6 MG/DL (1.8-2.4); POTASSIUM SERUM 4.1 MMOL/L (3.5-5.1); SODIUM LEVEL 137.0 MMOL/L (136-145)
[2025-05-23] MEDS: LIDOCAINE 5% PATCH TD SCH (08:19)
[2025-05-23 14:00] VITALS: BP 118/61; TEMP 97.3
[2025-05-23 19:45] VITALS: BP 118/63; TEMP 97.7; O2SAT 96
[2025-05-24 06:29] VITALS: BP 119/62; TEMP 96.8; O2SAT 99
[2025-05-24 07:59] LABS: PLATELET COUNT, AUTOMATED 674 10^3/uL (150-450)
[2025-05-24 08:26] LABS: CALCIUM LEVEL 7.9 MG/DL (8.3-10.6); CARBON DIOXIDE LEVEL 33.0 MMOL/L (20-31); CHLORIDE LEVEL 95.0 MMOL/L (98-107); CREATININE FOR GFR 0.84 MG/DL (0.55-1.30); GLOMERULAR FILTRATION RATE 73.8 (>39); POTASSIUM SERUM 3.8 MMOL/L (3.5-5.1); SODIUM LEVEL 134.0 MMOL/L (136-145)
[2025-05-24 12:21] LABS: MAGNESIUM LEVEL 1.6 MG/DL (1.8-2.4)
[2025-05-24 14:00] VITALS: BP 105/50; TEMP 97.3
[2025-05-24 21:30] VITALS: BP 104/57; TEMP 97.3; O2SAT 97
[2025-05-25 05:45] VITALS: BP 132/58; TEMP 97.5; O2SAT 96
[2025-05-25 13:40] VITALS: BP 117/60; TEMP 97.2
[2025-05-25 22:04] VITALS: BP 105/63; TEMP 97.3; O2SAT 96
[2025-05-26 05:54] VITALS: BP 129/96; TEMP 97.7; O2SAT 99
[2025-05-26 06:42] LABS: PLATELET COUNT, AUTOMATED 641 10^3/uL (150-450)
[2025-05-26 07:11] LABS: CALCIUM LEVEL 8.4 MG/DL (8.3-10.6); CARBON DIOXIDE LEVEL 33.0 MMOL/L (20-31); CHLORIDE LEVEL 95.0 MMOL/L (98-107); CREATININE FOR GFR 0.83 MG/DL (0.55-1.30); GLOMERULAR FILTRATION RATE 74.9 (>39); POTASSIUM SERUM 4.1 MMOL/L (3.5-5.1); SODIUM LEVEL 137.0 MMOL/L (136-145)
[2025-05-26 14:00] VITALS: BP 115/61; TEMP 97.2
[2025-05-27 06:00] VITALS: BP 120/63; TEMP 97.5; O2SAT 95
[2025-05-27 08:00] VITALS: BP 123/58; TEMP 97.5
[2025-05-27] MEDS ORDERED: VITAMIN D 50,000 UNITS CAPSULE (ERGOCALCIFEROL 1.25MG) PO SCH (09:00)
[2025-05-28 05:35] VITALS: BP 117/61; TEMP 97.3; O2SAT 99
[2025-05-28] MEDS ORDERED: LIDOCAINE 2% 100 MG/5 ML SDV (FOR ANES.) As Ordered ONE (08:22)
[2025-05-28] MEDS ORDERED: VITAMIN D 50,000 UNITS CAPSULE (ERGOCALCIFEROL 1.25MG) PO SCH (09:00)
[2025-05-28 20:00] VITALS: BP 126/60; TEMP 97.3; O2SAT 99
[2025-05-29 06:43] VITALS: BP 125/62; TEMP 97.2; O2SAT 100
[2025-05-29 20:00] VITALS: BP 131/63; TEMP 97.2; O2SAT 100
[2025-05-30 06:37] VITALS: BP 126/63; TEMP 97.3; O2SAT 100
[2025-05-31 06:16] VITALS: BP 121/64; TEMP 97.3; O2SAT 100
[2025-06-01 06:47] VITALS: BP 127/63; TEMP 97; O2SAT 99
[2025-06-01 09:59] VITALS: BP 125/63; TEMP 97.5; O2SAT 97
[2025-06-02 06:00] VITALS: BP 118/62; TEMP 97.5; O2SAT 98
[2025-06-03 06:00] VITALS: BP 121/62; TEMP 97.2; O2SAT 96
[2025-06-04 06:00] VITALS: BP 112/59; TEMP 97.3; O2SAT 97
[2025-06-05 02:59] VITALS: BP 113/62; TEMP 97.2; O2SAT 100
[2025-06-06 06:35] VITALS: BP 98/52; TEMP 97.3; O2SAT 98
[2025-06-07 05:25] VITALS: BP 134/71; TEMP 97.2; O2SAT 98
[2025-06-08 06:01] VITALS: BP 128/68; TEMP 97.3; O2SAT 98
[2025-06-09 06:00] VITALS: BP 126/68; TEMP 97.2; O2SAT 97
[2025-06-09] MEDS: NYSTATIN 100,000 UNITS/GM TOPICAL PWD 15 GM TOP SCH (20:11)
[2025-06-10 06:03] VITALS: BP 120/65; TEMP 97.3; O2SAT 98
[2025-06-11 06:00] VITALS: BP 117/63; TEMP 97.2; O2SAT 99
[2025-06-11 11:35] VITALS: BP 127/97; TEMP 97.9; O2SAT 97
[2025-06-11 17:00] LABS: APPEARANCE, URINE HAZY (CLEAR); BACTERIA, URINE AUTO NEGATIVE (NEGATIVE); BILIRUBIN, URINE AUTO NEGATIVE (NEGATIVE); BLOOD, URINE BLOOD 1+ (NEGATIVE); GLUCOSE, URINE (UA) AUTO NEGATIVE (NEGATIVE); KETONE, URINE AUTO NEGATIVE (NEGATIVE); LEUKOCYTE ESTERASE, URINE AUTO TRACE (NEGATIVE); NITRITE, URINE AUTO NEGATIVE (NEGATIVE); PROTEIN, URINE AUTO NEGATIVE (NEGATIVE); RBC, URINE AUTO 6 /HPF (0-3); SPECIFIC GRAVITY URINE AUTO 1.011 (1.002-1.035); SQUAMOUS EPITHELIAL CELL UR AU 0 /HPF (0-6); UROBILINOGEN, URINE AUTO 0.2 mg/dL (0.0-2.0); WBC, URINE AUTO 1 /HPF (0-3)
[2025-06-12 06:13] VITALS: BP 104/66; TEMP 97.3; O2SAT 95
[2025-06-13 06:54] VITALS: BP 127/65; TEMP 97.2; O2SAT 100
[2025-06-14] VITALS (13 sets, daily range): BP systolic 93–135; BP diastolic 43–75; TEMP 97–97.9; O2SAT 97–100
[2025-06-14] MEDS: DOXYCYCLINE HYCLATE 100 MG TABLET PO SCH (00:04)
[2025-06-14] MEDS ORDERED: PROTHROMBIN COMPLEX CONCEN IV ONE (14:25)
[2025-06-14] MEDS ORDERED: FLUID PLACE HOLDER IV ONE (14:25)
[2025-06-14] MEDS: MORPHINE 2 MG/ML 1 ML VIAL IV ONE (14:45)
[2025-06-14] MEDS: LIDOCAINE 1% MDV 20 ML VIAL SC ONE (14:47)
[2025-06-14] MEDS ORDERED: MORPHINE 4 MG/ML 1 ML VIAL IV ONE (15:00)
[2025-06-14] MEDS ORDERED: ONDANSETRON 4MG/2ML VIAL IV PRN (15:10)
[2025-06-14] MEDS: FACTOR XA,INACTIVATED-ZHZO 400 MG in APPROPRIATE DILUENT 40 ML IV ONE (16:36)
[2025-06-14] MEDS: FACTOR XA,INACTIVATED-ZHZO 480 MG in APPROPRIATE DILUENT 48 ML IV ONE (16:52)
[2025-06-14] MEDS: MORPHINE 4 MG/ML 1 ML VIAL IV PRN (17:01)
[2025-06-14 17:15] LABS: PLATELET COUNT, AUTOMATED 1764 10^3/uL (150-450)
[2025-06-15] VITALS (13 sets, daily range): BP systolic 90–125; BP diastolic 53–65; TEMP 97–98.5; O2SAT 94–100
[2025-06-15 04:52] LABS: PLATELET COUNT, AUTOMATED 2006 10^3/uL (150-450)
[2025-06-15 05:14] LABS: IRON (FE) 31.0 UG/DL (50-170); PERCENT SATURATION 12.8 % (13.2-45.0)
[2025-06-15 05:16] LABS: VITAMIN B12 LEVEL 1094.0 PG/ML (211-911)
[2025-06-15] MEDS: HYDROXYUREA 500 MG CAP PO ONE (08:30)
[2025-06-15] MEDS: MORPHINE 4 MG/ML 1 ML VIAL IV ONE (17:13)
[2025-06-15 18:16] LABS: INR 1.22
[2025-06-15] MEDS: HYDROXYUREA 500 MG CAP PO SCH (21:00)
[2025-06-16] VITALS (11 sets, daily range): BP systolic 101–130; BP diastolic 51–88; TEMP 97–99; O2SAT 94–100
[2025-06-16 04:41] LABS: BASO # 10.8 10^3/uL (0.0-0.2); BASO % 14.3 % (0.0-1.0); EOS # 1.3 10^3/uL (0.0-0.5); EOS % 1.8 % (0.0-3.0); LYMPH # 9.0 10^3/uL (1.5-5.0); LYMPH % 12.0 % (24.0-44.0); MONO % 5.0 % (2.0-8.0); NEUTROPHILS # 25.5 10^3/uL (1.5-8.5); NEUTROPHILS % 33.9 % (36.0-66.0)
[2025-06-16 04:49] LABS: MONO # 3.8 10^3/uL (0.0-0.8)
[2025-06-16 04:54] LABS: PLATELET COUNT, AUTOMATED 1821 10^3/uL (150-450)
[2025-06-16 05:04] LABS: CALCIUM LEVEL 9.2 MG/DL (8.3-10.6); CARBON DIOXIDE LEVEL 31.0 MMOL/L (20-31); CHLORIDE LEVEL 99.0 MMOL/L (98-107); CREATININE FOR GFR 0.8 MG/DL (0.55-1.30); GLOMERULAR FILTRATION RATE 78.2 (>39); MAGNESIUM LEVEL 1.9 MG/DL (1.8-2.4); POTASSIUM SERUM 5.0 MMOL/L (3.5-5.1); SODIUM LEVEL 137.0 MMOL/L (136-145)
[2025-06-16] MEDS: MORPHINE 4 MG/ML 1 ML VIAL IV ONE ×2 (06:30→09:08)
[2025-06-16 06:48] LABS: INR 1.17
[2025-06-16] MEDS ORDERED: HYDROXYUREA 500 MG CAP PO SCH (09:00)
[2025-06-16] MEDS: MIRALAX *UNIT DOSE* 17 GM PACKET PO PRN (09:06)
[2025-06-17] VITALS (13 sets, daily range): BP systolic 100–124; BP diastolic 53–59; TEMP 97.4–99; O2SAT 84–100
[2025-06-17 05:57] LABS: PLATELET COUNT, AUTOMATED 1386 10^3/uL (150-450)
[2025-06-17 05:58] LABS: INR 1.23
[2025-06-17 06:05] LABS: CALCIUM LEVEL 8.6 MG/DL (8.3-10.6); CARBON DIOXIDE LEVEL 29.0 MMOL/L (20-31); CHLORIDE LEVEL 100.0 MMOL/L (98-107); CREATININE FOR GFR 0.84 MG/DL (0.55-1.30); GLOMERULAR FILTRATION RATE 73.8 (>39); POTASSIUM SERUM 4.6 MMOL/L (3.5-5.1); SODIUM LEVEL 139.0 MMOL/L (136-145)
[2025-06-17] MEDS: LACTULOSE 20 GM/30 ML SYRUP UDC PO ONE (17:48)
[2025-06-17] MEDS ORDERED: LACTULOSE 20 GM/30 ML SYRUP UDC PO ONE (18:00)
[2025-06-18 00:18] VITALS: BP 100/54; TEMP 97.3; O2SAT 96
[2025-06-18 04:20] VITALS: BP 112/59; TEMP 97.5; O2SAT 98
[2025-06-18 05:10] LABS: PLATELET COUNT, AUTOMATED 1687 10^3/uL (150-450)
[2025-06-18 07:37] VITALS: BP 116/56; TEMP 97.2; O2SAT 98
[2025-06-18] MEDS: LACTULOSE 20 GM/30 ML SYRUP UDC PO ONE (09:26)
[2025-06-18] MEDS: BISACODYL 10 MG SUPP PR ONE (09:26)
[2025-06-18 12:00] VITALS: BP 142/67; TEMP 98; O2SAT 98
[2025-06-18] MEDS ORDERED: ACETAMINOPHEN *IV* 1,000 MG in IV 1 EA IV PRN (12:20)
[2025-06-18] MEDS ORDERED: traMADol 50 MG TAB PO PRN ×2 (12:20)
[2025-06-18 15:35] VITALS: BP 125/62; TEMP 97.6; O2SAT 96
[2025-06-18 19:57] VITALS: BP 128/62; TEMP 97.4; O2SAT 98
[2025-06-19] VITALS (7 sets, daily range): BP systolic 111–123; BP diastolic 56–65; TEMP 97.5–98.4; O2SAT 93–98
[2025-06-19 05:09] LABS: BASO # 11.8 10^3/uL (0.0-0.2); BASO % 12.9 % (0.0-1.0); EOS # 0.9 10^3/uL (0.0-0.5); EOS % 1.0 % (0.0-3.0); LYMPH # 9.2 10^3/uL (1.5-5.0); LYMPH % 10.0 % (24.0-44.0); MONO % 5.0 % (2.0-8.0); NEUTROPHILS # 30.7 10^3/uL (1.5-8.5); NEUTROPHILS % 33.7 % (36.0-66.0); PLATELET COUNT, AUTOMATED 1607 10^3/uL (150-450)
[2025-06-19 05:10] LABS: MONO # 4.5 10^3/uL (0.0-0.8)
[2025-06-19 05:48] LABS: CALCIUM LEVEL 10.0 MG/DL (8.3-10.6); CARBON DIOXIDE LEVEL 28.0 MMOL/L (20-31); CHLORIDE LEVEL 97.0 MMOL/L (98-107); CREATININE FOR GFR 0.89 MG/DL (0.55-1.30); GLOMERULAR FILTRATION RATE 68.8 (>39); POTASSIUM SERUM 4.2 MMOL/L (3.5-5.1); SODIUM LEVEL 138.0 MMOL/L (136-145)
[2025-06-20] VITALS (9 sets, daily range): BP systolic 90–114; BP diastolic 55–61; TEMP 97–98.4; O2SAT 69–98
[2025-06-20 05:21] LABS: PLATELET COUNT, AUTOMATED 1612 10^3/uL (150-450)
[2025-06-20 05:47] LABS: CALCIUM LEVEL 9.1 MG/DL (8.3-10.6); CARBON DIOXIDE LEVEL 28.0 MMOL/L (20-31); CHLORIDE LEVEL 97.0 MMOL/L (98-107); CREATININE FOR GFR 0.84 MG/DL (0.55-1.30); GLOMERULAR FILTRATION RATE 73.8 (>39); POTASSIUM SERUM 4.0 MMOL/L (3.5-5.1); SODIUM LEVEL 136.0 MMOL/L (136-145)
[2025-06-20] MEDS ORDERED: LIDOCAINE 5% PATCH TD PRN (14:05)
[2025-06-20] MEDS: oxyCODONE 10 MG CR TAB PO SCH (20:53)
[2025-06-21 04:10] VITALS: BP 109/61; TEMP 97.3; O2SAT 97
[2025-06-21 06:16] LABS: PLATELET COUNT, AUTOMATED 1633 10^3/uL (150-450)
[2025-06-21 06:40] LABS: CALCIUM LEVEL 9.1 MG/DL (8.3-10.6); CARBON DIOXIDE LEVEL 30.0 MMOL/L (20-31); CHLORIDE LEVEL 96.0 MMOL/L (98-107); CREATININE FOR GFR 0.8 MG/DL (0.55-1.30); GLOMERULAR FILTRATION RATE 78.2 (>39); POTASSIUM SERUM 3.8 MMOL/L (3.5-5.1); SODIUM LEVEL 137.0 MMOL/L (136-145)
[2025-06-21 07:41] VITALS: BP 123/60; TEMP 96.8; O2SAT 91
[2025-06-21] MEDS: ASPIRIN 81 MG ENTERIC TABLET PO SCH (08:57)
[2025-06-21] MEDS: MIRALAX *UNIT DOSE* 17 GM PACKET PO SCH (08:58)
[2025-06-21 15:37] VITALS: BP 110/58; TEMP 97; O2SAT 98
[2025-06-21 20:44] VITALS: BP 115/56; TEMP 97.2; O2SAT 98
[2025-06-22 03:39] VITALS: BP 114/56; TEMP 97; O2SAT 96
[2025-06-22 06:31] LABS: PLATELET COUNT, AUTOMATED 1752 10^3/uL (150-450)
[2025-06-22 06:53] LABS: CALCIUM LEVEL 9.4 MG/DL (8.3-10.6); CARBON DIOXIDE LEVEL 30.0 MMOL/L (20-31); CHLORIDE LEVEL 95.0 MMOL/L (98-107); CREATININE FOR GFR 0.86 MG/DL (0.55-1.30); GLOMERULAR FILTRATION RATE 71.7 (>39); POTASSIUM SERUM 4.2 MMOL/L (3.5-5.1); SODIUM LEVEL 137.0 MMOL/L (136-145)
[2025-06-22 10:33] VITALS: BP 114/56
[2025-06-22 10:40] VITALS: BP 114/56; TEMP 97.5; O2SAT 96
[2025-06-22] MEDS ORDERED: TRAM50TA2 PO (10:55)
[2025-06-22] MEDS ORDERED: ASPI81TAEC PO (10:55)
[2025-06-22] MEDS ORDERED: METH-1164 PO (10:55)
[2025-06-22] MEDS ORDERED: OXYC-141 PO (10:55)
== END 2025-06-22 11:51 | DRG 542 ==
LOC: M ED 13:05 → EDBD 13:05 → M ED INP 21:37 → M MS5PR 22:45 → M ICU 06-14 16:16 → M PCU 06-17 16:28 → M MSPAV 06-21 20:14
PROVIDERS: ADMIT Student in an Organized Health Care Education/Training Program; ATTEND Student in an Organized Health Care Education/Training Program
PROC: B246ZZZ Ultrasonography of Right and Left Heart (ICD-10-PCS; 2025-05-17)
PROC: 30233N1 Transfusion of Nonautologous Red Blood Cells into Peripheral Vein, Percutaneous Approach (ICD-10-PCS; 2025-06-14)
PROC: 0J9P30Z Drainage of Left Lower Leg Subcutaneous Tissue and Fascia with Drainage Device, Percutaneous Approach (ICD-10-PCS; principal; 2025-06-14 14:30)
PROC: 30233K1 Transfusion of Nonautologous Frozen Plasma into Peripheral Vein, Percutaneous Approach (ICD-10-PCS; 2025-06-15)
DX: M84.454A Pathological fracture, pelvis, initial encounter for fracture (principal); J18.9 Pneumonia, unspecified organism; I50.33 Acute on chronic diastolic (congestive) heart failure; I50.22 Chronic systolic (congestive) heart failure; I13.0 Hypertensive heart and chronic kidney disease with heart failure and stage 1 through stage 4 chronic kidney disease, or unspecified chronic kidney disease; C79.51 Secondary malignant neoplasm of bone; E87.1 Hypo-osmolality and hyponatremia; I48.21 Permanent atrial fibrillation; D68.32 Hemorrhagic disorder due to extrinsic circulating anticoagulants; C92.10 Chronic myeloid leukemia, BCR/ABL-positive, not having achieved remission; M84.452A Pathological fracture, left femur, initial encounter for fracture; M84.48XA Pathological fracture, other site, initial encounter for fracture; M25.562 Pain in left knee; I25.2 Old myocardial infarction; R60.0 Localized edema; Z66 Do not resuscitate; R53.1 Weakness; G47.33 Obstructive sleep apnea (adult) (pediatric); M79.604 Pain in right leg; N18.30 Chronic kidney disease, stage 3 unspecified; E11.22 Type 2 diabetes mellitus with diabetic chronic kidney disease; I25.10 Atherosclerotic heart disease of native coronary artery without angina pectoris; H91.90 Unspecified hearing loss, unspecified ear; M79.605 Pain in left leg; I49.5 Sick sinus syndrome; E03.9 Hypothyroidism, unspecified; D63.8 Anemia in other chronic diseases classified elsewhere; F32.A Depression, unspecified; M17.0 Bilateral primary osteoarthritis of knee; R91.8 Other nonspecific abnormal finding of lung field; E55.9 Vitamin D deficiency, unspecified; I89.0 Lymphedema, not elsewhere classified; M16.11 Unilateral primary osteoarthritis, right hip; S80.12XA Contusion of left lower leg, initial encounter; I87.2 Venous insufficiency (chronic) (peripheral); Z95.0 Presence of cardiac pacemaker; Z79.890 Hormone replacement therapy; Z86.73 Personal history of transient ischemic attack (TIA), and cerebral infarction without residual deficits; Z88.2 Allergy status to sulfonamides; Z88.8 Allergy status to other drugs, medicaments and biological substances; Z88.1 Allergy status to other antibiotic agents; Z79.01 Long term (current) use of anticoagulants; Z95.5 Presence of coronary angioplasty implant and graft; Z79.899 Other long term (current) drug therapy; Z96.651 Presence of right artificial knee joint; Z96.641 Presence of right artificial hip joint

== ENCOUNTER → 2025-06-27 | Outpatient (REF) | payer MEDICARE, MEDICAID ==
[~2025-06-27] MED LIST changes: +ASPI81TAEC PO; +BACL10TA2 PO; +INSUHUMDS SC; +LEVO88TA3 PO; +MED REC COMMENT; +METH-1164 PO; +NILO150C; +SENN-130 PO
[2025-06-27 12:56] LABS: PLATELET COUNT, AUTOMATED 1786 10^3/uL (150-450)
[2025-06-27 13:08] LABS: CALCIUM LEVEL 9.1 MG/DL (8.3-10.6); CARBON DIOXIDE LEVEL 32.0 MMOL/L (20-31); CHLORIDE LEVEL 93.0 MMOL/L (98-107); CREATININE FOR GFR 0.75 MG/DL (0.55-1.30); GLOMERULAR FILTRATION RATE 84.5 (>39); POTASSIUM SERUM 5.6 MMOL/L (3.5-5.1); SODIUM LEVEL 132.0 MMOL/L (136-145)
== END ==
PROVIDERS: ATTEND Internal Medicine
DX: I48.91 Unspecified atrial fibrillation (principal)

== ENCOUNTER → 2025-06-29 | Outpatient (REF) | payer MEDICARE, MEDICAID | PROVIDERS: ATTEND Internal Medicine | DX: N18.9 Chronic kidney disease, unspecified (principal); Z53.8 Procedure and treatment not carried out for other reasons ==

== ENCOUNTER → 2025-07-02 | Outpatient (REF) | payer MEDICARE, MEDICAID | PROVIDERS: ATTEND Internal Medicine | DX: C92.10 Chronic myeloid leukemia, BCR/ABL-positive, not having achieved remission (principal) ==

== ENCOUNTER → 2025-07-04 | Outpatient (REF) | payer MEDICARE, MEDICAID ==
[~2025-07-04] MED LIST changes: +BISA10SU27 PR; +SANT250O8 TOP
[2025-07-04 11:12] LABS: PLATELET COUNT, AUTOMATED 1177 10^3/uL (150-450)
[2025-07-04 11:20] LABS: CALCIUM LEVEL 8.4 MG/DL (8.3-10.6); CARBON DIOXIDE LEVEL 27.0 MMOL/L (20-31); CHLORIDE LEVEL 100.0 MMOL/L (98-107); CREATININE FOR GFR 0.8 MG/DL (0.55-1.30); GLOMERULAR FILTRATION RATE 78.2 (>39); POTASSIUM SERUM 5.6 MMOL/L (3.5-5.1); SODIUM LEVEL 137.0 MMOL/L (136-145)
== END ==
PROVIDERS: ATTEND Internal Medicine
DX: I48.91 Unspecified atrial fibrillation (principal)

== ENCOUNTER 2025-07-06 12:54 | Emergency (ER) | payer MEDICARE, MEDICAID ==
[~2025-07-06] VITALS: Ht 162.6 cm; Wt 68.6 kg
[~2025-07-06 12:54] MED LIST changes: -BACL10TA2 PO; -BISA10SU27 PR; -INSUHUMDS SC; -LEVO88TA3 PO; -MED REC COMMENT; -SANT250O8 TOP; -SENN-130 PO
[2025-07-06 14:51] LABS: BASO # 19.6 10^3/uL (0.0-0.2); BASO % 10.4 % (0.0-1.0); EOS # 5.7 10^3/uL (0.0-0.5); EOS % 3.0 % (0.0-3.0); LYMPH # 14.9 10^3/uL (1.5-5.0); LYMPH % 7.9 % (24.0-44.0); MONO % 2.9 % (2.0-8.0); NEUTROPHILS # 87.7 10^3/uL (1.5-8.5); NEUTROPHILS % 47.0 % (36.0-66.0)
[2025-07-06 14:55] LABS: PLATELET COUNT, AUTOMATED 1410 10^3/uL (150-450)
[2025-07-06 14:56] LABS: MONO # 5.5 10^3/uL (0.0-0.8)
[2025-07-06] MEDS: NS 500 ML IV ONE ×2 (15:03→18:15)
[2025-07-06 17:49] LABS: KETONE, URINE AUTO RFX NEGATIVE (NEGATIVE); MUCUS, URINE RFX SMALL (NEGATIVE); NITRITE, URINE AUTO RFX NEGATIVE (NEGATIVE); RBC, URINE AUTO RFX 4 /HPF (0-3); SQUAM EPITHELIAL CELL UR AURFX 0 /HPF (0-6); YEAST LIKE CELL URINE AUTO RFX SMALL
[2025-07-06 17:50] LABS: LEUKOCYTE ESTERASE UR AUTO RFX 2+ (NEGATIVE); WBC, URINE AUTO RFX 31 /HPF (0-3)
[2025-07-06 17:53] LABS: CK-MB VALUE MASS < 1.0 NG/ML (<3.6)
[2025-07-06 17:57] LABS: ALT/SGPT 29 U/L (7.0-40); AST/SGOT 30 U/L (<34); CALCIUM LEVEL 8.8 MG/DL (8.3-10.6); CARBON DIOXIDE LEVEL 26 MMOL/L (20-31); CHLORIDE LEVEL 101 MMOL/L (98-107); CREATININE FOR GFR 0.81 MG/DL (0.55-1.30); GLOMERULAR FILTRATION RATE 77.1 (>39); POTASSIUM SERUM 5.7 MMOL/L (3.5-5.1); SODIUM LEVEL 137 MMOL/L (136-145)
[2025-07-06 18:08] LABS: CPK CREATINE PHOSPHOKINASE 18 U/L (34-145)
[2025-07-06] MEDS ORDERED: ISOVUE-370 76% 100 ML VIAL As Ordered ONE (18:22)
[2025-07-06] MEDS: FLEET ENEMA PR ONE (20:10)
[2025-07-06] MEDS: ACETAMINOPHEN *IV* 1,000 MG in IV 1 EA IV ONE (22:34)
[2025-07-06 23:30] VITALS: BP 147/65
[2025-07-06 23:31] VITALS: TEMP 98.5; O2SAT 98
== END 2025-07-07 01:00 | disposition home or self-care (01) ==
LOC: M ED 12:54
DX: K59.00 Constipation, unspecified (principal); K80.20 Calculus of gallbladder without cholecystitis without obstruction; I25.2 Old myocardial infarction; E11.9 Type 2 diabetes mellitus without complications; I10 Essential (primary) hypertension; E78.5 Hyperlipidemia, unspecified; Z88.1 Allergy status to other antibiotic agents; Z88.2 Allergy status to sulfonamides; Z88.8 Allergy status to other drugs, medicaments and biological substances; Z79.1 Long term (current) use of non-steroidal anti-inflammatories (NSAID); Z79.899 Other long term (current) drug therapy
CPT/HCPCS: 71045; 71275; 74018; 74177; 80047; 80048; 80076; 81001; 82150; 82550; 82553; 83605; 83690; 84484; 85025; 87040; 87088; 87486; 87581; 87633; 87798; 93005; 93041; 96360; 96361; 99285; J0134; Q9967

== ENCOUNTER → 2025-07-09 | Outpatient (REF) | payer MEDICARE, MEDICAID ==
[~2025-07-09] MED LIST changes: +BACL10TA2 PO; +INSUHUMDS SC; +LEVO88TA3 PO; +MED REC COMMENT; +SENN-130 PO
[2025-07-09 11:32] LABS: PLATELET COUNT, AUTOMATED 1026 10^3/uL (150-450)
[2025-07-09 12:25] LABS: ALT/SGPT 18.0 U/L (7.0-40); AST/SGOT 16.0 U/L (<34); CALCIUM LEVEL 8.4 MG/DL (8.3-10.6); CARBON DIOXIDE LEVEL 25.0 MMOL/L (20-31); CHLORIDE LEVEL 101.0 MMOL/L (98-107); CREATININE FOR GFR 0.89 MG/DL (0.55-1.30); GLOMERULAR FILTRATION RATE 68.8 (>39); POTASSIUM SERUM 5.3 MMOL/L (3.5-5.1); SODIUM LEVEL 138.0 MMOL/L (136-145)
== END ==
PROVIDERS: ATTEND Internal Medicine
DX: N18.9 Chronic kidney disease, unspecified (principal)

== ENCOUNTER → 2025-07-11 | Outpatient (REF) | payer MEDICARE | PROVIDERS: ATTEND Internal Medicine | DX: R06.02 Shortness of breath (principal); Z95.0 Presence of cardiac pacemaker ==

== ENCOUNTER → 2025-07-18 | Outpatient (REF) | payer MEDICARE | PROVIDERS: ATTEND Internal Medicine | DX: C92.10 Chronic myeloid leukemia, BCR/ABL-positive, not having achieved remission (principal); Z53.8 Procedure and treatment not carried out for other reasons ==

== ENCOUNTER 2025-07-20 17:05 | Observation (INO) | payer MEDICARE, MEDICAID ==
[~2025-07-20] VITALS: Ht 152.4 cm; Wt 72.1 kg
[~2025-07-20 17:05] MED LIST changes: -BACL10TA2 PO; -BISA10SU27 PR; -INSUHUMDS SC; -LEVO88TA3 PO; -MED REC COMMENT; -SANT250O8 TOP; -SENN-130 PO
[2025-07-20] MEDS: traMADol 50 MG TAB PO ONE (17:47)
[2025-07-20 18:06] LABS: PLATELET COUNT, AUTOMATED 1343 10^3/uL (150-450)
[2025-07-20 18:23] LABS: CALCIUM LEVEL 8.2 MG/DL (8.3-10.6); CARBON DIOXIDE LEVEL 21 MMOL/L (20-31); CHLORIDE LEVEL 106 MMOL/L (98-107); CREATININE FOR GFR 0.71 MG/DL (0.55-1.30); GLOMERULAR FILTRATION RATE > 90.0 (>39); POTASSIUM SERUM 5.0 MMOL/L (3.5-5.1); SODIUM LEVEL 139 MMOL/L (136-145)
[2025-07-20 18:33] LABS: BASOPHILS 12 % (0-1); EOSINOPHILS 10 % (0-3); LYMPHOCYTES 6 % (16-44); METAMYELOCYTES 2 % (0-0); MONOCYTES 2 % (0-5); MYELOCYTES 2 % (0-0); NEUTROPHILS 65 % (28-66); PLATELET ESTIMATE INCREASED (NORMAL)
[2025-07-20 18:34] LABS: HYPERSEGMENTED POLYS 2+
[2025-07-20 18:50] LABS: INR 1.07
[2025-07-20] MEDS ORDERED: DEXTROSE 50% 50 ML SYRINGE IV PRN (18:55)
[2025-07-20] MEDS ORDERED: GLUCAGON INJ 1 MG VIAL SC PRN (18:55)
[2025-07-20] MEDS ORDERED: GLUCOSE 4 GM CHEW PO PRN (18:55)
[2025-07-20] MEDS: HYDROXYUREA 500 MG CAP PO SCH (21:00)
[2025-07-20] MEDS: INSULIN LISPRO (NovoLOG) PER UNIT SC SCH (21:02)
[2025-07-20 21:40] VITALS: BP 140/61; TEMP 97.9; O2SAT 100
[2025-07-20] MEDS ORDERED: LEVO88TA3 PO (21:51)
[2025-07-20] MEDS ORDERED: MED REC COMMENT (21:55)
[2025-07-20] MEDS ORDERED: SENN-130 PO (21:55)
[2025-07-20] MEDS ORDERED: TRAM50TA2 PO ×2 (21:58→22:08)
[2025-07-20] MEDS ORDERED: DICL100G10 TOP (22:00)
[2025-07-20] MEDS ORDERED: INSUHUMDS SC (22:08)
[2025-07-20] MEDS ORDERED: BACL10TA2 PO (22:08)
[2025-07-20] MEDS ORDERED: HOME MED LIST COMPLETE! XX SCH (22:10)
[2025-07-20 22:12] VITALS: BP 167/73; TEMP 98.2; O2SAT 100
[2025-07-20 22:28] VITALS: BP 139/98; TEMP 97.5; O2SAT 100
[2025-07-20] MEDS: ACETAMINOPHEN 325 MG TAB PO PRN (22:31)
[2025-07-20] MEDS ORDERED: BACLOFEN 5 MG PER 1/2 TABLET PO PRN (22:40)
[2025-07-20] MEDS ORDERED: PILL CUTTER 1 EACH XX PRN (22:50)
[2025-07-20 23:26] VITALS: BP 147/69; TEMP 97.3; O2SAT 100
[2025-07-21] VITALS (9 sets, daily range): BP systolic 119–179; BP diastolic 58–98; TEMP 96.3–98.2; O2SAT 99–100
[2025-07-21] MEDS: traMADol 50 MG TAB PO ONE (00:33)
[2025-07-21] MEDS: LEVOTHYROXINE 88 MCG TABLET (0.088 MG) PO SCH (05:08)
[2025-07-21 05:37] LABS: PLATELET COUNT, AUTOMATED 1304 10^3/uL (150-450)
[2025-07-21 05:53] LABS: ALT/SGPT 25 U/L (7.0-40); AST/SGOT 17 U/L (<34); CALCIUM LEVEL 8.4 MG/DL (8.3-10.6); CARBON DIOXIDE LEVEL 21 MMOL/L (20-31); CHLORIDE LEVEL 107 MMOL/L (98-107); CREATININE FOR GFR 0.69 MG/DL (0.55-1.30); GLOMERULAR FILTRATION RATE > 90.0 (>39); MAGNESIUM LEVEL 1.9 MG/DL (1.8-2.4); POTASSIUM SERUM 5.2 MMOL/L (3.5-5.1); SODIUM LEVEL 138 MMOL/L (136-145)
[2025-07-21] MEDS: INSULIN LISPRO (NovoLOG) PER UNIT SC SCH (07:30)
[2025-07-21] MEDS: PATIROMER SORBITEX CALCIUM 8.4GM POWDER PACKET PO ONE (08:09)
[2025-07-21] MEDS: CALCIUM GLUCONATE 1,000 MG in DEXTROSE 5% (D5W) MINI-BAG PLU 100 ML IV ONE (08:09)
[2025-07-21] MEDS: GLIMEPIRIDE 2 MG TAB PO SCH (08:31)
[2025-07-21] MEDS: SPIRONOLACTONE 12.5MG PER 1/2 TABLET PO SCH (08:31)
[2025-07-21] MEDS: traMADol 50 MG TAB PO SCH (08:32)
[2025-07-22 04:55] VITALS: BP 113/57; TEMP 98.2; O2SAT 99
[2025-07-22 05:57] LABS: BASO # 3.9 10^3/uL (0.0-0.2); BASO % 13.1 % (0.0-1.0); EOS # 2.9 10^3/uL (0.0-0.5); EOS % 9.8 % (0.0-3.0); LYMPH # 3.4 10^3/uL (1.5-5.0); LYMPH % 11.2 % (24.0-44.0); MONO # 1.6 10^3/uL (0.0-0.8); MONO % 5.3 % (2.0-8.0); NEUTROPHILS # 15.9 10^3/uL (1.5-8.5); NEUTROPHILS % 53.1 % (36.0-66.0)
[2025-07-22 05:59] LABS: PLATELET COUNT, AUTOMATED 1240 10^3/uL (150-450)
[2025-07-22 06:30] LABS: CALCIUM LEVEL 8.6 MG/DL (8.3-10.6); CARBON DIOXIDE LEVEL 22 MMOL/L (20-31); CHLORIDE LEVEL 107 MMOL/L (98-107); CREATININE FOR GFR 0.61 MG/DL (0.55-1.30); GLOMERULAR FILTRATION RATE > 90.0 (>39); POTASSIUM SERUM 4.5 MMOL/L (3.5-5.1); SODIUM LEVEL 141 MMOL/L (136-145)
[2025-07-22 08:00] VITALS: BP 132/60; TEMP 97; O2SAT 99
[2025-07-22 16:38] VITALS: BP 141/64; TEMP 98.3; O2SAT 100
[2025-07-22 19:21] VITALS: BP 104/51; TEMP 97.7; O2SAT 98
[2025-07-23] VITALS (9 sets, daily range): BP systolic 122–169; BP diastolic 62–86; TEMP 97–98.7; O2SAT 97–100
[2025-07-23 06:25] LABS: PLATELET COUNT, AUTOMATED 1068 10^3/uL (150-450)
[2025-07-23 06:44] LABS: CALCIUM LEVEL 8.4 MG/DL (8.3-10.6); CARBON DIOXIDE LEVEL 22 MMOL/L (20-31); CHLORIDE LEVEL 108 MMOL/L (98-107); CREATININE FOR GFR 0.65 MG/DL (0.55-1.30); GLOMERULAR FILTRATION RATE > 90.0 (>39); POTASSIUM SERUM 4.7 MMOL/L (3.5-5.1); SODIUM LEVEL 142 MMOL/L (136-145)
[2025-07-23 06:50] LABS: BASOPHILS 26 % (0-1); EOSINOPHILS 13 % (0-3); LYMPHOCYTES 5 % (16-44); METAMYELOCYTES 1 % (0-0); MONOCYTES 4 % (0-5); MYELOCYTES 4 % (0-0); NEUTROPHILS 44 % (28-66); PLATELET ESTIMATE INCREASED (NORMAL)
[2025-07-23] MEDS: oxyCODONE 10 MG CR TAB PO SCH (12:08)
[2025-07-23] MEDS: MIRALAX *UNIT DOSE* 17 GM PACKET PO PRN (14:17)
[2025-07-23] MEDS: MOM 30 ML SUSPENSION UDC PO PRN (14:17)
== END 2025-07-23 15:56 ==
LOC: M ED 17:05 → M ED INP 17:06 → M PCU 21:35
PROVIDERS: ADMIT Internal Medicine; ATTEND General Practice
DX: D64.9 Anemia, unspecified (principal); C92.10 Chronic myeloid leukemia, BCR/ABL-positive, not having achieved remission; D75.838 Other thrombocytosis; E87.5 Hyperkalemia; E86.0 Dehydration; R53.1 Weakness; E11.9 Type 2 diabetes mellitus without complications; I11.0 Hypertensive heart disease with heart failure; E78.5 Hyperlipidemia, unspecified; M06.9 Rheumatoid arthritis, unspecified; F41.9 Anxiety disorder, unspecified; I50.9 Heart failure, unspecified; I48.91 Unspecified atrial fibrillation; Z98.890 Other specified postprocedural states; Z86.718 Personal history of other venous thrombosis and embolism; Z86.73 Personal history of transient ischemic attack (TIA), and cerebral infarction without residual deficits; Z95.0 Presence of cardiac pacemaker; Q96.9 Turner's syndrome, unspecified; E07.9 Disorder of thyroid, unspecified; R06.02 Shortness of breath; Z80.3 Family history of malignant neoplasm of breast; Z88.1 Allergy status to other antibiotic agents; Z88.2 Allergy status to sulfonamides; Z88.8 Allergy status to other drugs, medicaments and biological substances; Z79.899 Other long term (current) drug therapy; Z79.890 Hormone replacement therapy; Z66 Do not resuscitate
CPT/HCPCS: 36415; 36430; 80048; 80053; 83735; 84132; 85014; 85018; 85025; 85027; 85610; 85730; 86850; 86900; 86901; 86920; 87426; 93005; 99285; G0378; J1815; P9016; P9040

== ENCOUNTER → 2025-07-20 | Outpatient (REF) | payer MEDICARE, MEDICAID ==
[~2025-07-20] MED LIST changes: +BISA10SU27 PR; +SANT250O8 TOP
[2025-07-20 14:10] LABS: BASO # 4.0 10^3/uL (0.0-0.2); BASO % 8.3 % (0.0-1.0); EOS # 4.3 10^3/uL (0.0-0.5); EOS % 8.9 % (0.0-3.0); LYMPH # 4.1 10^3/uL (1.5-5.0); LYMPH % 8.3 % (24.0-44.0); MONO # 1.3 10^3/uL (0.0-0.8); MONO % 2.7 % (2.0-8.0); NEUTROPHILS # 30.9 10^3/uL (1.5-8.5); NEUTROPHILS % 63.3 % (36.0-66.0)
[2025-07-20 14:19] LABS: PLATELET COUNT, AUTOMATED 1291 10^3/uL (150-450)
[2025-07-20 14:33] LABS: ALT/SGPT 24.0 U/L (7.0-40); AST/SGOT 15.0 U/L (<34); CALCIUM LEVEL 8.6 MG/DL (8.3-10.6); CARBON DIOXIDE LEVEL 22.0 MMOL/L (20-31); CHLORIDE LEVEL 105.0 MMOL/L (98-107); CREATININE FOR GFR 0.77 MG/DL (0.55-1.30); GLOMERULAR FILTRATION RATE 81.9 (>39); IRON (FE) 25.0 UG/DL (50-170); PERCENT SATURATION 9.9 % (13.2-45.0); POTASSIUM SERUM 5.6 MMOL/L (3.5-5.1); SODIUM LEVEL 137.0 MMOL/L (136-145)
[2025-07-20 14:35] LABS: VITAMIN B12 LEVEL 1670.0 PG/ML (211-911)
== END ==
PROVIDERS: ATTEND Internal Medicine
DX: C92.10 Chronic myeloid leukemia, BCR/ABL-positive, not having achieved remission (principal)

== ENCOUNTER → 2025-07-23 | Outpatient (REF) | payer MEDICARE, MEDICAID ==
[~2025-07-23] MED LIST changes: +BACL10TA2 PO; +INSUHUMDS SC; +LEVO88TA3 PO; +MED REC COMMENT; +SENN-130 PO
== END ==
PROVIDERS: ATTEND Internal Medicine
DX: C92.10 Chronic myeloid leukemia, BCR/ABL-positive, not having achieved remission (principal); Z53.8 Procedure and treatment not carried out for other reasons

== ENCOUNTER → 2025-07-27 | Outpatient (REF) | payer MEDICAID, MEDICARE ==
[~2025-07-27] MED LIST changes: +BISA10SU27 PR; +SANT250O8 TOP
[2025-07-27 12:02] LABS: PLATELET COUNT, AUTOMATED 1218 10^3/uL (150-450)
[2025-07-27 12:08] LABS: CALCIUM LEVEL 9.2 MG/DL (8.3-10.6); CARBON DIOXIDE LEVEL 27 MMOL/L (20-31); CHLORIDE LEVEL 105 MMOL/L (98-107); CREATININE FOR GFR 0.71 MG/DL (0.55-1.30); GLOMERULAR FILTRATION RATE > 90.0 (>39); POTASSIUM SERUM 4.8 MMOL/L (3.5-5.1); SODIUM LEVEL 140 MMOL/L (136-145)
== END ==
PROVIDERS: ATTEND Physician Assistant
DX: E87.0 Hyperosmolality and hypernatremia (principal)

== ENCOUNTER → 2025-08-01 | Outpatient (REF) | payer MEDICAID, MEDICARE ==
[2025-08-01 13:25] LABS: PLATELET COUNT, AUTOMATED 1416 10^3/uL (150-450)
[2025-08-01 13:56] LABS: ALT/SGPT 14 U/L (7.0-40); AST/SGOT 15 U/L (<34); CALCIUM LEVEL 8.9 MG/DL (8.3-10.6); CARBON DIOXIDE LEVEL 25 MMOL/L (20-31); CHLORIDE LEVEL 104 MMOL/L (98-107); CREATININE FOR GFR 0.64 MG/DL (0.55-1.30); GLOMERULAR FILTRATION RATE > 90.0 (>39); POTASSIUM SERUM 5.6 MMOL/L (3.5-5.1); SODIUM LEVEL 138 MMOL/L (136-145)
== END ==
PROVIDERS: ATTEND Internal Medicine
DX: C92.10 Chronic myeloid leukemia, BCR/ABL-positive, not having achieved remission (principal)

== ENCOUNTER → 2025-08-02 | Outpatient (REF) | payer MEDICAID, MEDICARE | PROVIDERS: ATTEND Internal Medicine | DX: E87.5 Hyperkalemia (principal); Z53.8 Procedure and treatment not carried out for other reasons ==

== ENCOUNTER → 2025-08-03 | Outpatient (REF) | payer MEDICAID, MEDICARE ==
[2025-08-03 10:37] LABS: CALCIUM LEVEL 8.7 MG/DL (8.3-10.6); CARBON DIOXIDE LEVEL 25 MMOL/L (20-31); CHLORIDE LEVEL 106 MMOL/L (98-107); CREATININE FOR GFR 0.62 MG/DL (0.55-1.30); GLOMERULAR FILTRATION RATE > 90.0 (>39); POTASSIUM SERUM 5.0 MMOL/L (3.5-5.1); SODIUM LEVEL 139 MMOL/L (136-145)
== END ==
PROVIDERS: ATTEND Internal Medicine
DX: E87.6 Hypokalemia (principal)

== ENCOUNTER → 2025-08-06 | Outpatient (REF) | payer MEDICAID, MEDICARE ==
[2025-08-06 13:10] LABS: PLATELET COUNT, AUTOMATED 1448 10^3/uL (150-450)
[2025-08-06 13:33] LABS: ALT/SGPT 13 U/L (7.0-40); AST/SGOT 14 U/L (<34); CALCIUM LEVEL 9.2 MG/DL (8.3-10.6); CARBON DIOXIDE LEVEL 26 MMOL/L (20-31); CHLORIDE LEVEL 102 MMOL/L (98-107); CREATININE FOR GFR 0.69 MG/DL (0.55-1.30); GLOMERULAR FILTRATION RATE > 90.0 (>39); POTASSIUM SERUM 5.5 MMOL/L (3.5-5.1); SODIUM LEVEL 136 MMOL/L (136-145)
== END ==
PROVIDERS: ATTEND Internal Medicine
DX: C92.10 Chronic myeloid leukemia, BCR/ABL-positive, not having achieved remission (principal)

== ENCOUNTER → 2025-08-13 | Outpatient (REF) | payer MEDICAID, MEDICARE ==
[2025-08-13 12:38] LABS: PLATELET COUNT, AUTOMATED 1590 10^3/uL (150-450)
[2025-08-13 12:53] LABS: CALCIUM LEVEL 9.1 MG/DL (8.3-10.6); CARBON DIOXIDE LEVEL 28 MMOL/L (20-31); CHLORIDE LEVEL 104 MMOL/L (98-107); CREATININE FOR GFR 0.70 MG/DL (0.55-1.30); GLOMERULAR FILTRATION RATE > 90.0 (>39); POTASSIUM SERUM 5.4 MMOL/L (3.5-5.1); SODIUM LEVEL 140 MMOL/L (136-145)
[2025-08-13 12:55] LABS: ALT/SGPT 12 U/L (7.0-40); AST/SGOT 16 U/L (<34); CALCIUM LEVEL 8.7 MG/DL (8.3-10.6); CARBON DIOXIDE LEVEL 28 MMOL/L (20-31); CHLORIDE LEVEL 102 MMOL/L (98-107); CREATININE FOR GFR 0.70 MG/DL (0.55-1.30); GLOMERULAR FILTRATION RATE > 90.0 (>39); POTASSIUM SERUM 5.4 MMOL/L (3.5-5.1); SODIUM LEVEL 138 MMOL/L (136-145)
[2025-08-13 13:24] LABS: EOSINOPHILS 2 % (0-3); LYMPHOCYTES 7 % (16-44); METAMYELOCYTES 10 % (0-0); MONOCYTES 7 % (0-5); MYELOCYTES 3 % (0-0); NEUTROPHILS 59 % (28-66)
[2025-08-13 13:25] LABS: PLATELET ESTIMATE INCREASED (NORMAL)
== END ==
PROVIDERS: ATTEND Physician Assistant
DX: C92.10 Chronic myeloid leukemia, BCR/ABL-positive, not having achieved remission (principal)

== ENCOUNTER → 2025-08-19 | Outpatient (REF) | payer MEDICARE, MEDICAID | PROVIDERS: ATTEND Internal Medicine | DX: R05.9 Cough, unspecified (principal); R11.0 Nausea ==

== ENCOUNTER → 2025-08-20 | Outpatient (REF) | payer MEDICAID, MEDICARE | PROVIDERS: ATTEND Internal Medicine | DX: C92.10 Chronic myeloid leukemia, BCR/ABL-positive, not having achieved remission (principal); Z53.8 Procedure and treatment not carried out for other reasons ==